=== PATIENT | male | born 1960 | race Caucasian/White ===

== ENCOUNTER → 2016-04-17 | Outpatient (CLI) | payer MEDICARE | END | disposition home or self-care (01) | LOC: LABWHC1 14:21 | PROVIDERS: ATTEND Psychiatry & Neurology Neurology | DX: G40.209 Localization-related (focal) (partial) symptomatic epilepsy and epileptic syndromes with complex partial seizures, not intractable, without status epilepticus (principal) | CPT/HCPCS: 36415; 80156 ==

== ENCOUNTER 2016-05-29 14:00 | Inpatient (IN) | payer MEDICARE ==
[2016-05-29] MEDS ORDERED: ATENOLOL 50 MG TAB PO STA (14:52)
[2016-05-29] MEDS ORDERED: BUDESONIDE 0.5 MG/2 ML NEBU INHALATION SCH (15:00)
[2016-05-29] MEDS: HYDROcodone/APAP 7.5-325MG 1 EACH TAB PO PRN ×2 (15:51→20:32)
[2016-05-29] MEDS ORDERED: IPRATROPIUM-ALBUTEROL 3 ML NEB INHALATION SCH (16:00)
[2016-05-29 16:09] LABS: INR 1.1 (<1.1); Prothrombin Time 11.3 sec (9.0-12.0)
[2016-05-29 16:13] LABS: CH 32.5; CHCM 31.6; HCT 47.8 % (39.0-53.0); HGB 14.8 gm/dL (13.0-17.5); MCHC 30.9 g/dL (31.0-37.0); MCV 103.6 fL (80.0-100.0); Macrocytosis Slight; Mean Platelet Volume 7.7; RBC 4.62 m/uL (4.30-5.90); RDW 14.5 % (11.5-15.5); WBC 7.1 k/uL (3.8-10.6); WBC (Perox) 7.09
[2016-05-29 16:18] LABS: ALT 36 U/L (21-72); AST 29 U/L (17-59); Alkaline Phosphatase 70 U/L (38-126); Anion Gap 13 mmol/L; Blood Urea Nitrogen 18 mg/dL (9-20); Calcium 9.5 mg/dL (8.4-10.2); Carbon Dioxide 30 mmol/L (22-30); Chloride 101 mmol/L (98-107); Glucose 146 mg/dL (74-99); Non-African American GFR(MDRD) >60 (>60 ml/min/1.73 sqM); Potassium 4.4 mmol/L (3.5-5.1); Sodium 144 mmol/L (137-145); Total Bilirubin 0.5 mg/dL (0.2-1.3); Total Protein 7.1 g/dL (6.3-8.2)
[2016-05-29 17:04] LABS: Nucleated Red Blood Cells 0 /100 WBC (0-0); Total Cells Counted 100
[2016-05-29 17:05] LABS: Manual Review Performed
--- NOTE | 2016-05-29 17:05 | XR ---
EXAMINATION TYPE: XR chest 2V DATE OF EXAM: 05/29/2016 5:00 PM COMPARISON: 05/10/2015 HISTORY: Fever and cough TECHNIQUE: Frontal and lateral views of the chest are obtained. FINDINGS: There is no heart failure nor confluent pneumonic infiltrate. There are no hilar masses. H eart size is normal. There are chest leads. Bony thorax is intact. IMPRESSION: No active cardiopulmonary disease. No change.
[2016-05-29] MEDS: NICOTINE 21MG/24HR PATCH TRANSDERM SCH (17:10)
[2016-05-29] MEDS: LEVALBUTEROL NEB 1.25 MG/3 ML AMP INHALATION SCH ×2 (17:30→19:33)
[2016-05-29] MEDS: BUDESONIDE 0.5 MG/2 ML NEBU INHALATION SCH ×3 (17:30→19:34)
[2016-05-29] MEDS ORDERED: RX INFO: IV CONTRAST WAS GIVEN 1 EACH MISC MISCELLANE PRN (17:36)
[2016-05-29] MEDS: methylPREDNISolone SOD SUCCI 125 MG/2 ML VIAL IV SCH (17:53)
--- NOTE | 2016-05-29 19:37 | CT ---
EXAMINATION TYPE: CT chest w con DATE OF EXAM: 05/29/2016 7:30 PM COMPARISON: NONE HISTORY: Pt states of SOB and chest pain. CT DLP: 263.3 mGycm Automated exposure control for dose reduction was used. CONTRAST: CT scan of the chest is performed with IV Contrast, patient injected with 90 mL of Omnipaque 300. FINDINGS: There are 3-D post processed images. There is diffuse pulmonary emphysema with bullous disease in the right upper lobe more than the left. There is no mediastinal adenopathy. There are a few bronchial lymph nodes that measure up to 1.5 cm. There is no evidence of aortic aneurysm or dissection. Heart size is normal. There is no pericardial effusion. There is no pleural effusion. There is no evidence of a pulmonary mass. There are possible small filling defects in the left lower lobe pulmonary artery in the posterior bas al segment. The bony thorax appears intact. IMPRESSION: Possible embolism in the left lower lobe pulmonary artery. Emphysema.
[2016-05-29] MEDS: ATENOLOL 50 MG TAB PO SCH (20:34)
[2016-05-29] MEDS ORDERED: HEPARIN SODIUM,PORCINE 10,000 UNIT/ML 1 ML VIAL IV ONE (22:56)
[2016-05-29] MEDS ORDERED: HEPARIN SODIUM,PORCINE 5,000 UNIT/ML 1 ML VIAL IV PRN (22:56)
[2016-05-29] MEDS ORDERED: HEPARIN SODIUM,PORCINE/D5W PMX 25,000 UNIT in DEXTROSE/WATER 1 500ML.BAG IV SCH (23:00)
[2016-05-29 23:35] LABS: Basophils # (A) 0.1 k/uL (0-0.2); Basophils % (A) 1 %; CH 32.7; CHCM 31.6; Eosinophils % (A) 0 %; HCT 43.5 % (39.0-53.0); HDW 2.12; HGB 13.6 gm/dL (13.0-17.5); Luc # (Auto) 0.16; Luc % (Auto) 3; Lymphocytes # (A) 0.7 k/uL (1.0-4.8); Lymphocytes % (A) 14 %; MCH 32.3 pg (25.0-35.0); MCHC 31.1 g/dL (31.0-37.0); MCV 103.9 fL (80.0-100.0); Macrocytosis Slight; Mean Platelet Volume 8.5; Monocytes # (A) 0.4 k/uL (0-1.0); Monocytes % (A) 7 %; Neutrophils # (A) 3.8 k/uL (1.3-7.7); Neutrophils % (A) 74 %; RBC 4.19 m/uL (4.30-5.90); RDW 14.6 % (11.5-15.5); WBC 5.1 k/uL (3.8-10.6); WBC (Perox) 5.45
[2016-05-29 23:49] LABS: INR 1.1 (<1.1); Partial Thromboplastin Time 30.2 sec (22.0-30.0); Prothrombin Time 10.7 sec (9.0-12.0)
[2016-05-30] MEDS: methylPREDNISolone SOD SUCCI 125 MG/2 ML VIAL IV SCH ×5 (00:01→23:32)
[2016-05-30] MEDS: carBAMazepine 200 MG TAB PO SCH ×3 (00:01→20:13)
[2016-05-30] MEDS: HYDROcodone/APAP 7.5-325MG 1 EACH TAB PO PRN ×5 (01:26→20:12)
[2016-05-30] MEDS: SODIUM CHLORIDE 0.9% 1,000 ML IV SCH ×3 (01:27→17:37)
[2016-05-30 06:18] LABS: CH 32.3; CHCM 31.3; HDW 2.13; HGB 13.4 gm/dL (13.0-17.5); MCH 32.2 pg (25.0-35.0); MCHC 31.1 g/dL (31.0-37.0); MCV 103.6 fL (80.0-100.0); Macrocytosis Slight; Mean Platelet Volume 7.6; RBC 4.15 m/uL (4.30-5.90); RDW 14.6 % (11.5-15.5); WBC 5.9 k/uL (3.8-10.6); WBC (Perox) 6.18
[2016-05-30] MEDS: NICOTINE 21MG/24HR PATCH TRANSDERM SCH (07:34)
[2016-05-30] MEDS: PANTOPRAZOLE 40 MG TABLET PO SCH (07:34)
[2016-05-30] MEDS: ATENOLOL 50 MG TAB PO SCH ×2 (07:34→20:14)
[2016-05-30 08:19] LABS: Add Differential Manual Differential; Manual Review Performed
[2016-05-30 08:24] LABS: Band Neutrophils % 2.5 %; Myelocytes % 0.5 %; Nucleated Red Blood Cells 0 /100 WBC (0-0); Total Cells Counted 200
[2016-05-30] MEDS: LEVALBUTEROL NEB 1.25 MG/3 ML AMP INHALATION SCH ×3 (08:28→20:14)
--- NOTE | 2016-05-30 11:01 | CONS ---
DATE OF CONSULTATION: CHIEF COMPLAINT: Chest discomfort. Jamil is a 55-year-old gentleman with history of COPD, long-standing smoking who presented to the hospital complaining of cough, productive sputum and pleuritic chest pain. He had an elevated D-dimer, went on to have a CAT scan that showed evidence of pulmonary embolism. Cardiology has been consulted because of mild troponin elevation. An echocardiogram, which I reviewed while it was being done, shows an enlarged right ventricle and mild LV dysfunction with mild hypokinesis involving basal inferior wall. The patient is free of exertional angina, shortness of breath, paroxysmal nocturnal dyspnea or exertional angina. There is history of shortness of breath. There is no history of leg edema, paroxysmal nocturnal dyspnea or orthopnea. Medications at home included Tegretol, Coumadin, omeprazole, Xalatan, [place] and Tenormin. Allergic to AMPICILLIN and CHANTIX. Family history is negative for premature coronary artery disease. SOCIAL HISTORY: Significant for smoking. There is no history of EtOH abuse or drug abuse. REVIEW OF SYSTEMS: HEENT: Unremarkable. CARDIAC: As described above. RESPIRATORY: Significant for cough, pleuritic pain and productive sputum. GI: Negative. GENITOURINARY: Negative. ALLERGIES/IMMUNOLOGY: Negative. MUSCULOSKELETAL: Significant for arthritis. PSYCHOSOCIAL: Negative. ENDOCRINE: Negative. HEMATOLOGIC: Negative. CONSTITUTIONAL: Negative. The rest of the system review is not relevant. On exam, patient is comfortable at rest. Heart rate is 80 beats per minute. Blood pressure 168/100, respiratory rate is 18. Chest exam reveals diffuse bilateral rhonchi. Heart exam reveals first and second heart sounds. No gallop. Has a systolic murmur at the left lower sternal border. Abdomen is soft. Exam of the extremities did not reveal any edema. Peripheral pulses are felt. Labs show a hemoglobin of 13.4. Creatinine is 0.6. Potassium is 4.4. CAT scan shows possible pulmonary embolism. Chest x-ray was unremarkable. Labs are as described above. EKG shows sinus tachycardia. ASSESSMENT: 1. Pleuritic chest pain, probably secondary to pulmonary embolism. 2. Chronic obstructive pulmonary disease exacerbation. 3. Abnormal echo. PLAN: I agree with intravenous heparin. The patient was on Coumadin. I do not know for what, but his INR was subtherapeutic. Please start him on Coumadin. Transfer him to [facility] where he can be more closely monitored. He is already on atenolol. I will add an aspirin every day. Check his lipid profile and start him on statins. Once the respiratory status resolves, I will do an outpatient stress test on him.
--- NOTE | 2016-05-30 11:12 | ECHOF ---
Referral Reason:cp MEASUREMENTS -------- HEIGHT: 175.3 cm WEIGHT: 62.6 kg BP: 168/100 RVIDd: 2.1 cm (< 3.3) IVSd: 0.9 cm (0.6 - 1.1) LVIDd: 4.1 cm (3.9 - 5.3) LVPWd: 0.9 cm (0.6 - 1.1) IVSs: 1.8 cm LVIDs: 2.8 cm LVPWs: 1.2 cm LA Diam: 2.9 cm (2.7 - 3.8) LAESV Index (A-L): 14.70 ml/m Ao Diam: 2.7 cm (2.0 - 3.7) AV Cusp: 1.7 cm (1.5 - 2.6) LA Diam: 2.3 cm (2.7 - 3.8) MV EXCURSION: 13.189 mm (> 18.000) MV EF SLOPE: 38 mm/s (70 - 150) EPSS: 0.5 cm MV E Jesus: 0.82 m/s MV DecT: 194 ms MV A Jesus: 0.59 m/s MV E/A Ratio: 1.38 RAP: 5.00 mmHg RVSP: 26.13 mmHg FINDINGS -------- Sinus rhythm. This was a technically adequate study. Left ventricular wall thickness is normal. Overall left ventricular systolic function is mildly impaired with, an EF between 45 - 50 %. Inferior basal Hypokinesis The right ventricle is normal in size. Normal LA size by volume 22+/-6 ml/m2. The right atrium is normal in size. 1.5mg of Definity was utilized for enhancement of images Aortic valve is trileaflet and is mildly thickened. The mitral valve leaflets are mildly thickened. Mild mitral annular calcification present. Trace tricuspid regurgitation present. Right ventricular systolic pressure is normal at < 35 mmHg. Pulmonic valve appears structurally normal. The aortic root size is normal. The inferior vena cava is mildly dilated. Echo free space may represent effusion or a pericardial fat pad. CONCLUSIONS -------- 1. Sinus rhythm. 2. Aortic valve is trileaflet and is mildly thickened. 3. The mitral valve leaflets are mildly thickened. 4. Mild mitral annular calcification present. 5. Trace tricuspid regurgitation present. 6. Right ventricular systolic pressure is normal at < 35 mmHg. 7. Pulmonic valve appears structurally normal. 8. The aortic root size is normal. 9. The inferior vena cava is mildly dilated. 10. Echo free space may represent effusion or a pericardial fat pad. 11. This was a technically adequate study. 12. Left ventricular wall thickness is normal. 13. Overall left ventricular systolic function is mildly impaired with, an EF between 45 - 50 %. 14. Inferior basal Hypokinesis 15. The right ventricle is normal in size. 16. Normal LA size by volume 22+/-6 ml/m2. 17. The right atrium is normal in size. 18. 1.5mg of Definity was utilized for enhancement of images PRIMARY GRADE TEACHER: Bobby Bernal RDCS
[2016-05-30] MEDS: ASPIRIN 81 MG CHEW PO SCH (12:31)
--- NOTE | 2016-05-30 13:17 | P.CNPUL ---
History of Present Illness Consult date: 05/30/16 Requesting physician: Octaviano Noble Reason for consult: COPD, pulmonary embolism Chief complaint: Shortness of breath History of present illness: This patient is a 55-year-old male who is being evaluated and examined today on the fifth floor for pulmonary services. The patient has a history of COPD and long-standing smoking and presented to the hospital with complaints of a productive cough with white sputum and pleuritic chest pain with coughing. Upon evaluation in the ER was noted that the patient had an elevated d-dimer and he went for a computed tomography scan that did show evidence of a possible pulmonary embolism. The patient also had an elevated troponin. Cardiology has been put on consult. Upon examination the patient is resting in bed on 2 L of oxygen and complains of exertional shortness of breath and exertional angina. Review of Systems Complete 14 point review of systems was completed and is negative other than what is noted in the HPI. Past Medical History Past Medical History: COPD, Deep Vein Thrombosis (DVT), Eye Disorder, GI Bleed, Hypertension, Osteoarthritis (OA), Pneumonia, Pulmonary Embolus (PE), Respiratory Disorder, Seizure Disorder Additional Past Medical History / Comment(s): Respiratory failure with O2 at 3L/ [place] ATC, tracheobronchitis, pleurisy, bollous lung disease, bilateral pulmonary embolus, last SEIZURE 2015, PERFORATED ULCER 2005 with surgical repair, R leg DVT, CHRONIC BACK PAIN, DDD/DJD, TIA, MIGRAINES, bilateral TINNITUS, WAS TOLD 20 YEARS AGO HE HAD ALCOHOLIC HEPATITIS, bilateral GLAUCOMA, HEEL SPURS, arthritis multiple joints. History of Any Multi-Drug Resistant Organisms: None Reported Past Surgical History: Hernia Repair, Orthopedic Surgery Additional Past Surgical History / Comment(s): ulcer repair, EGD/COLONOSCOPY POLYP REMOVED WAS BENIGN, JOSIAH KNEE ARTHROSCOPY, abdominal hernia repair. Past Anesthesia/Blood Transfusion Reactions: Postoperative Nausea & Vomiting ( PONV) Past Psychological History: Anxiety Additional Psychological History / Comment(s): Pt has a son who lives with him. He has home O2 at 3L/[place] ATC and a nebulizer. He does not drive, he gets places by dial-a-ride or friends. He uses a cane occasionally. He owns a walker. Smoking Status: Current every day smoker Past Alcohol Use History: Occasional Additional Past Alcohol Use History / Comment(s): Pt states he started smoking as a teen and is a 1/2 ppd smoker. He states he has hx of alcoholism but now drinks on occasion with last drink being 05/25/16 (2 beers). Past Drug Use History: None Reported - Past Family History Sister(s) Family Medical History: Cancer Additional Family Medical History / Comment(s): SKIN CANCER Mother Family Medical History: Cancer, CVA/TIA Additional Family Medical History / Comment(s): BREAST Father Additional Family Medical History / Comment(s): YELLOW JAUNDICE, MALARIA FROM WW2, EMPHYSEMA Brother(s) Family Medical History: Cancer Additional Family Medical History / Comment(s): SKIN Medications and Allergies Home Medications Medication Instructions Recorded Confirmed Type Atenolol [Tenormin] 50 mg PO BID 12/22/13 05/29/16 History carBAMazepine [TEGretol] 200 mg PO BID 12/22/13 05/29/16 History HYDROcodone/APAP 7.5-325MG [[place] 1 tab PO BID PRN 05/29/16 05/29/16 History 7.5-325] Latanoprost [Xalatan 0.005%] 1 drop BOTH EYES HS 05/29/16 05/29/16 History Omeprazole 40 mg PO DAILY 05/29/16 05/29/16 History Warfarin [Coumadin] 7.5 mg PO HS 05/29/16 05/29/16 History Allergies Allergy/AdvReac Type Severity Reaction Status Date / Time varenicline tartrate Allergy Intermediate Rash/Hives Verified 05/29/16 15:22 [From Chantix] ampicillin Allergy Rash/Hives Verified 05/29/16 15:22 Physical Exam Vitals: Vital Signs Temp Pulse Pulse Resp BP Pulse Ox 05/30/16 08:38 83 05/30/16 08:30 96 05/30/16 08:28 83 05/30/16 08:12 168/100 05/30/16 08:00 81 17 05/30/16 07:00 98.4 F 81 17 179/97 98 05/29/16 22:19 98.2 F 103 H 20 125/80 98 05/29/16 19:44 92 05/29/16 19:35 88 05/29/16 16:00 145 H 05/29/16 15:05 99 05/29/16 15:00 99.2 F 150 H 26 H 161/105 94 L Intake and Output 05/29/16 05/30/16 05/30/16 22:59 06:59 14:59 Intake Total 738.348 Balance 738.348 Intake: Intake, IV Titration 738.348 Amount Heparin Sodium,Porcine/ 138.348 D5w Pmx 25,000 unit In Dextrose/Water 1 500ml. bag @ 18 UNITS/KG/HR 22. 68 mls/hr IV .[id number] EMILY Rx#:[id number] Sodium Chloride 0.9% 1, 600 000 ml @ 75 mls/hr IV . [id number] EMILY Rx#:[id number] Other: Voiding Method Toilet Toilet # Voids 1 1 Weight 63 kg 63 kg Patient Weight 05/31/16 06:59 Weight 63 kg GENERAL EXAM: Alert, active, comfortable in no apparent distress. HEAD: Normocephalic. EYES: Normal reaction of pupils, equal size. NOSE: Clear with pink turbinates. THROAT: No erythema or exudates. NECK: No masses, no JVD. CHEST: No chest wall deformity. LUNGS: Equal air entry with wheezing and diffuse bilateral rhonchi is present CVS: S1 and S2 normal with no audible mumurs, regular rhythm. ABDOMEN: No hepatosplenomegaly, normal bowel sounds, no guarding or rigidity. EXTREMITIES: No edema noted, pedal pulses palpable. SKIN: No rashes CENTRAL NERVOUS SYSTEM: No focal deficits, tone is normal in all 4 extremities. Results - Laboratory Findings CBC and BMP: 05/30/16 05:32 05/29/16 15:30 PT/INR, D-dimer PT 10.7 sec (9.0-12.0) 05/29/16 23:16 INR 1.1 (<1.1) 05/29/16 23:16 D-Dimer 0.96 mg/L FEU (<0.60) H 05/29/16 15:30 Abnormal lab findings: Abnormal Labs 05/29/16 05/29/16 05/29/16 15:30 15:30 15:30 RBC MCV 103.6 H MCHC 30.9 L Lymphocytes # Lymphocytes # (Manual) Monocytes # (Manual) 1.1 H APTT D-Dimer 0.96 H Creatinine 0.60 L Glucose 146 H 05/29/16 05/29/16 05/30/16 23:16 23:16 05:32 RBC 4.19 L MCV 103.9 H MCHC Lymphocytes # 0.7 L Lymphocytes # (Manual) Monocytes # (Manual) APTT 30.2 H 71.8 H D-Dimer Creatinine Glucose 05/30/16 05:32 RBC 4.15 L MCV 103.6 H MCHC Lymphocytes # Lymphocytes # (Manual) 0.9 L Monocytes # (Manual) APTT D-Dimer Creatinine Glucose - Diagnostic Findings Chest x-ray: report reviewed, image reviewed CT scan - chest: report reviewed, image reviewed Assessment and Plan Plan: Assessment Chronic obstructive pulmonary disease with acute exacerbation Current Pulmonary embolism, with a history of previous bilateral pulmonary embolism Pleuritic chest pain related to pulmonary embolism Hypertension Current active nicotine user Acute on chronic hypoxic respiratory failure Plan Medications have been reviewed and will be continued. Continue the patient on a heparin drip per protocol. The patient chronically uses home O2 of 3 L via nasal cannula at all times. Continue with nebulizer treatments and IV steroids. The patient will be moved to the selective care unit. Smoking cessation education provided. We will continue to monitor labs and adjust treatment as necessary.
--- NOTE | 2016-05-30 13:57 | P.PN ---
Subjective 55-year-old being seen sitting up in bed. Patient states breathing feels slightly improved. Patients being followed by pulmonology and cardiology service. Patient had an elevated d-dimer did have a CAT scan of the chest done at did show evidence to suggest a pulmonary emboli mild elevated troponins were noted as well and cardiology is been consulted and is participating in the plan of care. Patient did have an echocardiogram done which showed left ventricular systolic function mildly impaired with an EF between 45 and 50%. Dr. Ramirez did discuss with the patient that he did stop the Coumadin start the patient on Xarelto in which the patient has agreed. Cardiology recommends for the tachycardia the patient be moved to a cardiac unit monitored closely. Recommendations were reviewed with the patient and the family at the bedside by the attending Objective - Vital Signs Vital signs: Vital Signs Temp 98.4 F 05/30/16 07:00 Pulse 83 05/30/16 08:38 Resp 17 05/30/16 08:00 BP 168/100 05/30/16 08:12 Pulse Ox 96 05/30/16 08:30 Intake & Output 05/29/16 05/30/16 05/30/16 18:59 06:59 18:59 Intake Total 738.348 Balance 738.348 Weight 152.4 kg 63 kg 63 kg Intake: Intake, IV Titration 738.348 Amount Heparin Sodium,Porcine/ 138.348 D5w Pmx 25,000 unit In Dextrose/Water 1 500ml. bag @ 18 UNITS/KG/HR 22. 68 mls/hr IV .Q22H3M EMILY Rx#:[id number] Sodium Chloride 0.9% 1, 600 000 ml @ 75 mls/hr IV . [id number] EMILY Rx#:[id number] Other: Voiding Method Toilet Toilet # Voids 1 1 - Exam GENERAL APPEARANCE: 55-year-old male sitting up in bed patient is alert, oriented, in no acute distress. VITAL SIGNS: Reviewed HEENT: Head is normocephalic and atraumatic. Pupils are equal and reactive. The nares are patent. Oropharynx is clear without lesions. NECK: Supple without lymphadenopathy. Traches midline. HEART: S1, S2.irrg LUNGS: Posterior diminished at the bases with bilateral prolonged expiratory wheezing noted slightly short of breath with conversation ABDOMEN: Soft, nontender, nondistended with good bowel sounds. No peritoneal signs. No palpable organomegaly or masses. EXTREMITIES: Normal skin color and turgor. No cyanosis, rash, ulceration, clubbing or edema. Radial pedal pulses are 2/4 bilaterally. NEUROLOGICAL: No focal deficits. Strength and sensation are grossly intact. - Labs CBC & Chem 7: 05/30/16 05:32 05/29/16 15:30 Labs: Abnormal Lab Results - Last 24 Hours (Table) 05/29/16 05/29/16 05/29/16 Range/Units 15:30 15:30 15:30 RBC (4.30-5.90) m/uL MCV 103.6 H (80.0-100.0) fL MCHC 30.9 L (31.0-37.0) g/dL Lymphocytes # (1.0-4.8) k/uL Lymphocytes # (Manual) (1.0-4.8) k/uL Monocytes # (Manual) 1.1 H (0-1.0) k/uL APTT (22.0-30.0) sec D-Dimer 0.96 H (<0.60) mg/L FEU Creatinine 0.60 L (0.66-1.25) mg/dL Glucose 146 H (74-99) mg/dL 05/29/16 05/29/16 05/30/16 Range/Units 23:16 23:16 05:32 RBC 4.19 L (4.30-5.90) m/uL MCV 103.9 H (80.0-100.0) fL MCHC (31.0-37.0) g/dL Lymphocytes # 0.7 L (1.0-4.8) k/uL Lymphocytes # (Manual) (1.0-4.8) k/uL Monocytes # (Manual) (0-1.0) k/uL APTT 30.2 H 71.8 H (22.0-30.0) sec D-Dimer (<0.60) mg/L FEU Creatinine (0.66-1.25) mg/dL Glucose (74-99) mg/dL 05/30/16 Range/Units 05:32 RBC 4.15 L (4.30-5.90) m/uL MCV 103.6 H (80.0-100.0) fL MCHC (31.0-37.0) g/dL Lymphocytes # (1.0-4.8) k/uL Lymphocytes # (Manual) 0.9 L (1.0-4.8) k/uL Monocytes # (Manual) (0-1.0) k/uL APTT (22.0-30.0) sec D-Dimer (<0.60) mg/L FEU Creatinine (0.66-1.25) mg/dL Glucose (74-99) mg/dL Assessment and Plan Plan: Impression : Present on admission shortness of breath multifactorial suspect due to left lower lobe pulmonary emboli with decompensated congestive heart failure systolic dysfunction Subtherapeutic on INR 1.1 on admission Chronic hypoxic respiratory failure supplemental home O2 Chronic nicotine dependency Present on admission pleuritic chest pain suspect due to pulmonary emboli Acute exacerbation of COPD Acute on chronic hypoxic respiratory failure essential hypertension Echocardiogram done on May 29 show left ventricular systolic function mildly impaired EF between 45 and 50% Present on admission sinus tachycardic likely reactive Chronic debility due to comorbidities CT CAT scan of the chest shows emphysema Plan Transfer to the cardiac unit per cardiology's request Continue recommendations by cardiology service Xarelto 15 mg twice a day for 3 weeks then 20 mg daily for treatment of the pulmonary emboli Stop IV heparin after the Xarelto has been initiated We'll stop the Coumadin Resume home meds as appropriate Further recommendations pending The above dictated assessment and findings were discussed with dr ramirez Impression and the plan of care have been dictated as directed. Anastasia Garcia nurse practitioner acting as a scribe for dr ramirez
[2016-05-30] MEDS: RIVAROXABAN 15 MG TAB PO SCH (14:53)
[2016-05-30] MEDS: LATANOPROST 0.005% OPHTH DROPS 2.5 ML BTL BOTH EYES SCH (20:14)
[2016-05-30] MEDS: BUDESONIDE 0.5 MG/2 ML NEBU INHALATION SCH (20:14)
[2016-05-30] MEDS ORDERED: ATENOLOL 50 MG TAB PO SCH (21:00)
[2016-05-30] MEDS: DILTIAZEM 125 MG in SODIUM CHLORIDE 0.9% 100 ML IV SCH (23:19)
[2016-05-31] MEDS: PANTOPRAZOLE 40 MG TABLET PO SCH (06:37)
[2016-05-31] MEDS: methylPREDNISolone SOD SUCCI 125 MG/2 ML VIAL IV SCH ×4 (06:37→23:50)
[2016-05-31] MEDS: RIVAROXABAN 15 MG TAB PO SCH ×2 (06:37→17:08)
[2016-05-31 07:02] LABS: Basophils # (A) 0.1 k/uL (0-0.2); Basophils % (A) 1 %; CH 32.5; CHCM 30.8; Eosinophils % (A) 0 %; HCT 45.5 % (39.0-53.0); HDW 2.25; HGB 13.9 gm/dL (13.0-17.5); Hypochromasia Slight; Luc # (Auto) 0.34; Luc % (Auto) 4; Lymphocytes # (A) 1.2 k/uL (1.0-4.8); Lymphocytes % (A) 13 %; MCH 32.5 pg (25.0-35.0); MCHC 30.6 g/dL (31.0-37.0); MCV 106.2 fL (80.0-100.0); Macrocytosis Moderate; Mean Platelet Volume 8.7; Monocytes # (A) 0.7 k/uL (0-1.0); Monocytes % (A) 8 %; Neutrophils # (A) 6.9 k/uL (1.3-7.7); Neutrophils % (A) 75 %; RBC 4.29 m/uL (4.30-5.90); RDW 14.6 % (11.5-15.5); WBC 9.3 k/uL (3.8-10.6); WBC (Perox) 9.27
[2016-05-31] MEDS: LEVALBUTEROL NEB 1.25 MG/3 ML AMP INHALATION SCH ×3 (08:16→21:01)
[2016-05-31] MEDS: BUDESONIDE 0.5 MG/2 ML NEBU INHALATION SCH ×3 (08:16→21:02)
[2016-05-31] MEDS: carBAMazepine 200 MG TAB PO SCH ×2 (08:36→19:42)
[2016-05-31] MEDS: ATENOLOL 50 MG TAB PO SCH ×2 (08:36→19:42)
[2016-05-31] MEDS: ASPIRIN 81 MG CHEW PO SCH (08:36)
[2016-05-31] MEDS: NICOTINE 21MG/24HR PATCH TRANSDERM SCH (08:37)
[2016-05-31] MEDS: DILTIAZEM 125 MG in SODIUM CHLORIDE 0.9% 100 ML IV SCH (08:37)
[2016-05-31] MEDS: HYDROcodone/APAP 7.5-325MG 1 EACH TAB PO PRN ×2 (08:38→19:33)
--- NOTE | 2016-05-31 13:45 | P.PN ---
Subjective Principal diagnosis: pulmonary embolism, acute exacerbation of COPD patient seen and examined. Patient states he is much more wheezy today. He is more short of breath. He states he does not feel ready to go home yet. Objective - Vital Signs Vital signs: Vital Signs Temp 96.4 F L 05/31/16 11:45 Pulse 70 05/31/16 13:33 Resp 18 05/31/16 11:45 BP 127/74 05/31/16 11:45 Pulse Ox 97 05/31/16 11:45 Intake & Output 05/30/16 05/31/16 05/31/16 18:59 06:59 18:59 Intake Total 86 420 813 Balance 86 420 813 Weight 63 kg 68.9 kg Intake: IV 240 Diltiazem 125 mg In 80 Sodium Chloride 0.9% 100 ml @ 10 MG/HR 10 mls/hr IV .[id number] EMILY Rx#: [id number] Sodium Chloride 0.9% 1, 160 000 ml @ 20 mls/hr IV . Q24H EMILY Rx#:[id number] Intake, IV Titration 86 120 93 Amount Diltiazem 125 mg In 40 93 Sodium Chloride 0.9% 100 ml @ 10 MG/HR 10 mls/hr IV .[id number] EMILY Rx#: [id number] Sodium Chloride 0.9% 1, 86 80 000 ml @ 20 mls/hr IV . Q24H EMILY Rx#:[id number] Oral 300 480 Other: Voiding Method Toilet Toilet Toilet # Voids 3 1 2 - Exam Gen.: Patient is alert and oriented 3, no acute distress Prevascular: Regular rate and rhythm, S1/S2 Lungs: Diffuse bilateral wheezing Abdomen: Soft nontender nondistended positive bowel sounds Extremities: No edema - Labs CBC & Chem 7: 05/31/16 06:11 05/29/16 15:30 Labs: Abnormal Lab Results - Last 24 Hours (Table) 05/31/16 Range/Units 06:11 RBC 4.29 L (4.30-5.90) m/uL MCV 106.2 H (80.0-100.0) fL MCHC 30.6 L (31.0-37.0) g/dL Assessment and Plan Plan: Chronic obstructive pulmonary disease with acute exacerbation bronchospasm Current left lower lobe Pulmonary embolism, with a history of previous bilateral pulmonary embolism Pleuritic chest pain related to pulmonary embolism Hypertension Current active nicotine user Acute on chronic hypoxic respiratory failure Plan Medications have been reviewed and will be continued. The patient chronically uses home O2 of 3 L via nasal cannula at all times. Continue with nebulizer treatments and IV steroids. Increase dose of Pulmicort for now. Will add Atrovent nebs. Continue Xopenex. Add Perforomist Continue dose of IV Solumedrol for now. Xarelto for PE. Smoking cessation education provided. We will continue to monitor labs and adjust treatment as necessary.
[2016-05-31] MEDS: IPRATROPIUM 0.5 MG/2.5 ML NEBU INHALATION SCH ×2 (13:52→21:01)
[2016-05-31] MEDS: SODIUM CHLORIDE 0.9% 1,000 ML IV SCH (17:13)
[2016-05-31] MEDS ORDERED: IPRATROPIUM 0.5 MG/2.5 ML NEBU INHALATION PRN (18:38)
[2016-05-31] MEDS: LATANOPROST 0.005% OPHTH DROPS 2.5 ML BTL BOTH EYES SCH (19:35)
--- NOTE | 2016-05-31 20:11 | P.PN ---
Subjective Principal diagnosis: This patient was admitted with chest pain and shortness of breath. This and is being treated for pulmonary embolism this and also has a moderate to severe COPD he is having mild chest discomfort at present his breathing is improved. Objective - Vital Signs Vital signs: Vital Signs Temp 97.8 F 05/31/16 15:48 Pulse 73 05/31/16 15:48 Resp 18 05/31/16 15:48 BP 105/68 05/31/16 15:48 Pulse Ox 99 05/31/16 15:48 Intake & Output 05/31/16 05/31/16 06/01/16 06:59 18:59 07:59 Intake Total 420 813 Balance 420 813 Weight 68.9 kg Intake: IV 240 Diltiazem 125 mg In 80 Sodium Chloride 0.9% 100 ml @ 10 MG/HR 10 mls/hr IV .[id number] EMILY Rx#: [id number] Sodium Chloride 0.9% 1, 160 000 ml @ 20 mls/hr IV . Q24H EMILY Rx#:[id number] Intake, IV Titration 120 93 Amount Diltiazem 125 mg In 40 93 Sodium Chloride 0.9% 100 ml @ 10 MG/HR 10 mls/hr IV .[id number] EMILY Rx#: [id number] Sodium Chloride 0.9% 1, 80 000 ml @ 20 mls/hr IV . Q24H EMILY Rx#:[id number] Oral 300 480 Other: Voiding Method Toilet Toilet Urinal # Voids 1 2 - Exam Patient is not in any acute respiratory distress. First and second heart sounds are normal. Lungs reveal bilateral rhonchi. - Labs CBC & Chem 7: 05/31/16 06:11 05/29/16 15:30 Labs: Abnormal Lab Results - Last 24 Hours (Table) 05/31/16 Range/Units 06:11 RBC 4.29 L (4.30-5.90) m/uL MCV 106.2 H (80.0-100.0) fL MCHC 30.6 L (31.0-37.0) g/dL Assessment and Plan Plan: I would recommend to continue to treat the patient with the xarelto for pulmonary embolism I would also recommend to continue the treatment for COPD.
[2016-05-31] MEDS: FORMOTEROL FUMARATE 20 MCG/2 ML NEBU INHALATION SCH (21:01)
[2016-05-31] MEDS: DILTIAZEM ORAL 30 MG TAB PO SCH (21:38)
--- NOTE | 2016-05-31 21:44 | PN ---
DATE OF SERVICE: 05/31/2016 SUBJECTIVE: A 55-year-old white male with pulmonary embolism, acute exacerbation of COPD, possible tracheobronchitis. Continues to have wheezing. He had some rigors and chills at home prior to coming in the hospital. He has subtherapeutic Coumadin level. We started him on Xarelto yesterday for his pulmonary embolism. Blood pressure 120s/70s, O2 is 97% on room air. Pulse 70s, respiratory rate 18, temp 96.4. He has had diltiazem for severe tachycardia through the IV. EXTREMITIES: No cyanosis, clubbing, edema. White count is 9.3, hemoglobin 13.9. Creatinine 0.6. ASSESSMENT: 1. Chronic obstructive pulmonary disease exacerbation. 2. Left lower lobe pulmonary embolism, previous pulmonary emboli. 3. Pleuritic chest pain secondary to pulmonary embolism. 4. Hypertension. 5. Nicotine addiction. 6. Acute on chronic respiratory failure. Continue 3L of oxygen at home. Continue with Atrovent nebulizer, Pulmicort nebulizer, Xopenex, Perforomist, IV Solu-Medrol, Xarelto, smoking cessation. Follow up in next 24 to 48 hours.
[2016-06-01] MEDS: methylPREDNISolone SOD SUCCI 125 MG/2 ML VIAL IV SCH ×2 (06:35→11:45)
[2016-06-01] MEDS: RIVAROXABAN 15 MG TAB PO SCH ×2 (06:35→16:41)
[2016-06-01] MEDS: PANTOPRAZOLE 40 MG TABLET PO SCH (06:35)
[2016-06-01] MEDS: FORMOTEROL FUMARATE 20 MCG/2 ML NEBU INHALATION SCH ×2 (06:58→19:34)
[2016-06-01] MEDS: IPRATROPIUM 0.5 MG/2.5 ML NEBU INHALATION SCH ×4 (06:59→19:34)
[2016-06-01 07:01] LABS: Basophils % (A) 0 %; CH 32.5; CHCM 31.2; Eosinophils % (A) 0 %; HCT 40.9 % (39.0-53.0); HGB 12.6 gm/dL (13.0-17.5); Luc # (Auto) 0.26; Luc % (Auto) 3; Lymphocytes % (A) 11 %; MCH 32.2 pg (25.0-35.0); MCHC 30.8 g/dL (31.0-37.0); MCV 104.7 fL (80.0-100.0); Macrocytosis Moderate; Mean Platelet Volume 7.8; Monocytes # (A) 0.6 k/uL (0-1.0); Monocytes % (A) 6 %; Neutrophils # (A) 7.7 k/uL (1.3-7.7); Neutrophils % (A) 80 %; RDW 14.6 % (11.5-15.5); WBC 9.6 k/uL (3.8-10.6); WBC (Perox) 10.04
[2016-06-01] MEDS: BUDESONIDE 0.5 MG/2 ML NEBU INHALATION SCH ×2 (07:10→19:34)
[2016-06-01 07:17] LABS: ALT 116 U/L (21-72); AST 86 U/L (17-59); Alkaline Phosphatase 88 U/L (38-126); Anion Gap 9 mmol/L; Blood Urea Nitrogen 17 mg/dL (9-20); Calcium 9.2 mg/dL (8.4-10.2); Carbon Dioxide 30 mmol/L (22-30); Chloride 103 mmol/L (98-107); Glucose 198 mg/dL (74-99); Non-African American GFR(MDRD) >60 (>60 ml/min/1.73 sqM); Potassium 4.6 mmol/L (3.5-5.1); Sodium 142 mmol/L (137-145); Total Bilirubin 0.4 mg/dL (0.2-1.3); Total Protein 5.7 g/dL (6.3-8.2)
[2016-06-01] MEDS ORDERED: LEVALBUTEROL NEB (CONC) 1.25 MG/0.5 ML AMP INHALATION SCH (08:00)
[2016-06-01] MEDS: DILTIAZEM ORAL 30 MG TAB PO SCH (08:37)
[2016-06-01] MEDS: ATENOLOL 50 MG TAB PO SCH ×2 (08:38→21:09)
[2016-06-01] MEDS: ASPIRIN 81 MG CHEW PO SCH (08:38)
[2016-06-01] MEDS: NICOTINE 21MG/24HR PATCH TRANSDERM SCH (08:38)
[2016-06-01] MEDS: HYDROcodone/APAP 7.5-325MG 1 EACH TAB PO PRN ×2 (08:40→18:48)
[2016-06-01] MEDS: LEVALBUTEROL NEB (CONC) 1.25 MG/0.5 ML AMP INHALATION SCH ×3 (10:57→19:34)
[2016-06-01] MEDS: carBAMazepine 200 MG TAB PO SCH ×2 (10:58→21:09)
--- NOTE | 2016-06-01 14:29 | P.PN ---
Subjective Principal diagnosis: pulmonary embolism patient seen and examined. Patient states his breathing is a little bit better today. He still feels very wheezy. He doesn't feel he is ready to go home. Objective - Vital Signs Vital signs: Vital Signs Temp 96.8 F L 06/01/16 12:00 Pulse 112 H 06/01/16 12:00 Resp 16 06/01/16 12:00 BP 169/104 06/01/16 12:00 Pulse Ox 97 06/01/16 12:00 Intake & Output 05/31/16 06/01/16 06/01/16 17:59 06:59 18:59 Intake Total 180 Balance 180 Weight 69.8 kg Intake: IV Diltiazem 125 mg In Sodium Chloride 0.9% 100 ml @ 10 MG/HR 10 mls/hr IV .[id number] [facility] Rx#: [id number] Sodium Chloride 0.9% 1, 000 ml @ 20 mls/hr IV . Q24H [facility] Rx#:[id number] Intake, IV Titration Amount Diltiazem 125 mg In Sodium Chloride 0.9% 100 ml @ 10 MG/HR 10 mls/hr IV .[id number] [facility] Rx#: [id number] Oral 180 Other: Voiding Method Toilet Urinal # Voids # Bowel Movements 1 - Exam Gen.: Patient is alert and oriented 3, no acute distress Prevascular: Regular rate and rhythm, S1/S2 Lungs: Diffuse bilateral wheezing Abdomen: Soft nontender nondistended positive bowel sounds Extremities: No edema - Labs CBC & Chem 7: 06/01/16 06:03 06/01/16 06:03 Labs: Abnormal Lab Results - Last 24 Hours (Table) 06/01/16 06/01/16 Range/Units 06:03 06:03 RBC 3.90 L (4.30-5.90) m/uL Hgb 12.6 L (13.0-17.5) gm/dL MCV 104.7 H (80.0-100.0) fL MCHC 30.8 L (31.0-37.0) g/dL Creatinine 0.55 L (0.66-1.25) mg/dL Glucose 198 H (74-99) mg/dL AST 86 H (17-59) U/L ALT 116 H (21-72) U/L Total Protein 5.7 L (6.3-8.2) g/dL Albumin 3.2 L (3.5-5.0) g/dL Assessment and Plan Plan: Chronic obstructive pulmonary disease with acute exacerbation bronchospasm Current left lower lobe Pulmonary embolism, with a history of previous bilateral pulmonary embolism Pleuritic chest pain related to pulmonary embolism Hypertension Current active nicotine user Acute on chronic hypoxic respiratory failure Plan Medications have been reviewed and will be continued. The patient chronically uses home O2 of 3 L via nasal cannula at all times. Continue with nebulizer treatments and IV steroids. Increase dose of Pulmicort for now. Will add Atrovent nebs. Continue Xopenex. continuePerforomist Continue dose of IV Solumedrol for now. Xarelto for PE. Smoking cessation education provided. We will continue to monitor labs and adjust treatment as necessary.
[2016-06-01] MEDS: ENALAPRILAT 1.25 MG/ML 1 ML VIAL IVP PRN ×2 (16:41→21:16)
[2016-06-01] MEDS: DILTIAZEM ORAL 60 MG TAB PO SCH ×2 (16:42→21:10)
[2016-06-01] MEDS: SODIUM CHLORIDE 0.9% 1,000 ML IV SCH (16:45)
[2016-06-01] MEDS ORDERED: methylPREDNISolone SOD SUCCI 125 MG/2 ML VIAL IV SCH (21:00)
[2016-06-01] MEDS: LATANOPROST 0.005% OPHTH DROPS 2.5 ML BTL BOTH EYES SCH (21:09)
[2016-06-01] MEDS: methylPREDNISolone SOD SUCCI 40 MG/ML 1 ML VIAL IV SCH (21:17)
[2016-06-01] MEDS: VERAPAMIL 40 MG TAB PO SCH (23:20)
[2016-06-02 06:28] LABS: Basophils % (A) 0 %; CH 32.6; CHCM 31.7; Eosinophils % (A) 0 %; HCT 39.4 % (39.0-53.0); HDW 2.11; HGB 12.5 gm/dL (13.0-17.5); Luc # (Auto) 0.37; Luc % (Auto) 3; Lymphocytes % (A) 8 %; MCH 32.8 pg (25.0-35.0); MCHC 31.8 g/dL (31.0-37.0); MCV 103.2 fL (80.0-100.0); Macrocytosis Slight; Mean Platelet Volume 7.4; Monocytes % (A) 8 %; Neutrophils % (A) 81 %; RBC 3.82 m/uL (4.30-5.90); RDW 14.5 % (11.5-15.5); WBC 12.4 k/uL (3.8-10.6); WBC (Perox) 13.24
[2016-06-02] MEDS: PANTOPRAZOLE 40 MG TABLET PO SCH (06:32)
[2016-06-02] MEDS: HYDROcodone/APAP 7.5-325MG 1 EACH TAB PO PRN ×3 (06:32→21:27)
[2016-06-02] MEDS: ENALAPRILAT 1.25 MG/ML 1 ML VIAL IVP PRN (06:33)
[2016-06-02] MEDS: LEVALBUTEROL NEB (CONC) 1.25 MG/0.5 ML AMP INHALATION SCH ×4 (08:10→20:22)
[2016-06-02] MEDS: BUDESONIDE 0.5 MG/2 ML NEBU INHALATION SCH ×2 (08:10→20:21)
[2016-06-02] MEDS: FORMOTEROL FUMARATE 20 MCG/2 ML NEBU INHALATION SCH ×2 (08:10→20:21)
[2016-06-02] MEDS: IPRATROPIUM 0.5 MG/2.5 ML NEBU INHALATION SCH ×4 (08:10→20:22)
--- NOTE | 2016-06-02 08:43 | PN ---
DATE OF SERVICE: 06/01/2016. SUBJECTIVE: 55-year-old white male with COPD exacerbation and pulmonary embolism, in the right lower lobe. Nicotine patch is being given, Xarelto has been given. He is being weaned off the IV steroids. He is on 60 q.12 at this time. We are going to decrease it. Increase his ambulation. Possibly discharge home in next day or 2. PHYSICAL EXAM: VITAL SIGNS: Respiratory rate 18, pulse rate 111, he has been taken off the Cardizem drip and oral Cardizem, pulse rate is in the low 100s. CARDIOVASCULAR: S1, S2. Tachy. LUNGS: Show scattered wheezes x4. HEMATOLOGIC: Negative Homans. PSYCHIATRIC: Fair mood and affect. VASCULAR: Normal dorsalis pedis, posterior tibial, and radial pulse. ASSESSMENT: 1. Acute pulmonary embolism. 2. Acute chronic obstructive pulmonary disease exacerbation. 3. Acute severe tachyarrhythmia. On Cardizem and Tenormin to control rate but wean off Solu-Medrol a little bit. Possibly discharge home in the next day or 2.
[2016-06-02] MEDS ORDERED: VERAPAMIL 40 MG TAB PO SCH ×2 (09:00→22:30)
[2016-06-02] MEDS: RIVAROXABAN 15 MG TAB PO SCH ×2 (09:02→17:26)
[2016-06-02] MEDS: carBAMazepine 200 MG TAB PO SCH ×2 (09:03→21:12)
[2016-06-02] MEDS: ASPIRIN 81 MG CHEW PO SCH (09:03)
[2016-06-02] MEDS: NADOLOL 20 MG TAB PO SCH ×2 (09:04→21:12)
[2016-06-02] MEDS: VERAPAMIL 40 MG TAB PO SCH ×3 (09:04→21:13)
[2016-06-02] MEDS: NICOTINE 21MG/24HR PATCH TRANSDERM SCH (09:07)
[2016-06-02] MEDS: methylPREDNISolone SOD SUCCI 40 MG/ML 1 ML VIAL IV SCH ×2 (09:07→21:12)
--- NOTE | 2016-06-02 09:29 | PN ---
This patient is being treated for acute exacerbation of COPD and pulmonary embolism. Patient is feeling well. He has been having some chest pain with coughing. He continues to have some respiratory distress. Patient is afebrile. Respirations are not labored. Blood pressure is 150/90 mmHg. First and second heart sounds are normal. Lung examination revealed bilateral rhonchi. Patient's heart rate remains in the range of 100 to 110. I will increase the dose of Cardizem to 60 mg q.8 hourly, continue Tenormin.
--- NOTE | 2016-06-02 15:58 | P.PN ---
Subjective 55-year-old states breathing feels slightly improved but continues to feel short of breath with exertion since being followed by pulmonology service Objective - Vital Signs Vital signs: Vital Signs Temp 97.1 F L 06/02/16 11:20 Pulse 96 06/02/16 11:48 Resp 20 06/02/16 11:20 BP 150/95 06/02/16 11:20 Pulse Ox 96 06/02/16 11:20 Intake & Output 06/01/16 06/02/16 06/02/16 18:59 06:59 18:59 Intake Total 300 660 300 Output Total 350 Balance 300 660 -50 Weight 69.8 kg 70.3 kg Intake: IV 60 Sodium Chloride 0.9% 1, 60 000 ml @ 20 mls/hr IV . Q24H [facility] Rx#:[id number] Oral 300 600 300 Output: Urine 350 Other: Voiding Method Toilet Toilet Toilet Urinal Urinal Urinal # Voids 2 1 # Bowel Movements 1 - Exam Physical exam 55-year-old male sitting up states he feels short of breath Lungs diminished at the bases otherwise adequate air movement Heart S1-S2 audible regular Abdomen soft nontender Extremities no edema - Labs CBC & Chem 7: 06/02/16 05:57 06/01/16 06:03 Labs: Abnormal Lab Results - Last 24 Hours (Table) 06/02/16 Range/Units 05:57 WBC 12.4 H (3.8-10.6) k/uL RBC 3.82 L (4.30-5.90) m/uL Hgb 12.5 L (13.0-17.5) gm/dL MCV 103.2 H (80.0-100.0) fL Neutrophils # 10.0 H (1.3-7.7) k/uL Assessment and Plan Plan: Impression : Present on admission shortness of breath multifactorial suspect due to left lower lobe pulmonary emboli with decompensated congestive heart failure systolic dysfunction Subtherapeutic on INR 1.1 on admission Chronic hypoxic respiratory failure supplemental home O2 Chronic nicotine dependency Present on admission pleuritic chest pain suspect due to pulmonary emboli Acute exacerbation of COPD Acute on chronic hypoxic respiratory failure essential hypertension Echocardiogram done on May 29 show left ventricular systolic function mildly impaired EF between 45 and 50% Present on admission sinus tachycardic likely reactive Chronic debility due to comorbidities CT CAT scan of the chest shows emphysema Plan Transfer to the cardiac unit per cardiology's request Continue recommendations by cardiology service Xarelto 15 mg twice a day for 3 weeks then 20 mg daily for treatment of the pulmonary emboli Stop IV heparin after the Xarelto has been initiated We'll stop the Coumadin Resume home meds as appropriate Further recommendations pending The above dictated assessment and findings were discussed with dr james Gill and the plan of care have been dictated as directed. Anastasia Garcia nurse practitioner acting as a scribe for dr ramirez
[2016-06-02] MEDS: SODIUM CHLORIDE 0.9% 1,000 ML IV SCH (17:23)
--- NOTE | 2016-06-02 19:54 | XR ---
"EXAMINATION TYPE: XR abdomen 2V DATE OF EXAM: 06/02/2016 7:46 PM CLINICAL HISTORY: Lower abdominal pain. TECHNIQUE: Supine and upright views of the abdomen are obtained. COMPARISON: CT abdomen pelvis May 05, 2015. FINDINGS: Scattered gas is seen in non-distended small bowel loops. Gas and fecal material is seen in non-distended colon. Numerous coils ventral wall hernia repair surgery are seen overlying the abdo men. There is moderate amount of pneumoperitoneum present. Lung bases are clear. Osseous structures a re demineralized. IMPRESSION: Pneumoperitoneum present. No recent intra-abdominal surgery per nurse. Emergent surgical consultation advised. Critical results were communicated to patient's nurse via telephone at time of dictation. A Document Only message has been documented for Sumanth Fajardo in the [employer] | Critical Result sys tem on 06/02/2016 7:51 PM, Message ID [id number]."
[2016-06-02] MEDS ORDERED: RX INFO: IV CONTRAST WAS GIVEN 1 EACH MISC MISCELLANE PRN (20:22)
[2016-06-02] MEDS: IOHEXOL 350 MG/ML 25 ML BOTTLE (ORAL USE) PO PRN ×2 (21:00→23:45)
[2016-06-02] MEDS: LATANOPROST 0.005% OPHTH DROPS 2.5 ML BTL BOTH EYES SCH (21:12)
[2016-06-02] MEDS: LACTATED RINGERS 1,000 ML IV SCH (21:14)
[2016-06-02] MEDS: LEVOFLOXACIN 500MG-D5W PMX 500 MG in DEXTROSE/WATER 1 100ML.BAG IVPB SCH (21:14)
--- NOTE | 2016-06-02 22:17 | PN ---
This patient is a 55-year-old male, seen, evaluated, examined as a followup on sixth floor. Patient has been admitted to the hospital with acute COPD exacerbation, tracheobronchitis and severe wheezing. Clinically he is slightly better and improved, breathing more comfortably. His hemodynamic status is stable. He has a new complaint which just started a few hours ago which is associated with left lower quadrant abdominal pain. He had a regular bowel movement today. He denies any nausea or vomiting. His last set of vitals includes blood pressure 150/95, respiratory rate 18, pulse 85, temperature 97. Saturating 96% on 3 L oxygen. HEENT: Unremarkable. Atraumatic, normocephalic. Pharynx is clear without exudate. NECK: Supple without lymphadenopathy, jugular venous distention or carotid bruit. LUNGS: Bilateral good air entry is present without any significant rales, rhonchi or rub; however, fine expiratory and inspiratory wheezing is present. HEART: Regular rate, rhythm. S1, S2 audible. ABDOMEN: Soft. Hypoactive bowel sounds. Tenderness predominantly present in left lower quadrant. No rebound or rigidity. EXTREMITIES: Plus one peripheral pulses. NEUROLOGICAL EXAMINATION: Awake and alert. No focal neurological deficit. Patient did receive [place] this morning. Labs are reviewed. White cell count 12,400, hemoglobin 12, hematocrit 39, platelet count 247,000. Chemistry otherwise is within normal limits. Glucose 198. AST and ALT are 86 and 116, which were up compared to prior exam. Influenza A and B were both negative. Patient is off of heparin now. The hemoglobin, however, remains relatively stable. The radiographic studies are reviewed. The chest x-ray performed on 05/29/16 revealed no active disease. CT scan of the chest performed on 05/29/16 revealed bullous lung disease, borderline lymph node enlargement. Cardiology has been following this patient as well. Current medications are reviewed and include: 1. Tylenol with codeine 4 times a day. 2. Aspirin 81 mg daily. 3. Pulmicort 2 times a day. 4. Vasotec as needed. 5. Perforomist. 6. Ipratropium unit dose updraft 4 times a day. 7. Levalbuterol 4 times a day. 8. Solu-Medrol 40 q.12. 9. Xarelto 15 mg p.o. 2 times a day. IMPRESSION: 1. Acute chronic obstructive pulmonary disease exacerbation and tracheobronchitis. Continue breathing treatments and steroids. 2. Pulmonary embolism, on Xarelto. 3. Leukocytosis with elevated liver enzymes with new-onset left lower quadrant pain. Would recommend an ultrasound of the abdomen, a plain film x-ray. Patient is being given [place]. If the pain is persistent, would recommend a CT scan of the abdomen and pelvis. Will monitor and observe closely. Further recommendations pending.
--- NOTE | 2016-06-02 22:23 | PN ---
This patient has acute tracheobronchitis and pulmonary embolism. Patient is doing better. His breathing is improved. Patient has now converted to normal sinus rhythm. Blood pressure is 150/95 mmHg. Heart rate is 90 per minute. First and second heart sounds are normal. Lungs are clear to auscultation and percussion. We will continue the patient on Verapamil, ( ) and Xarelto.
--- NOTE | 2016-06-03 02:12 | CT ---
EXAM: CT Abdomen and Pelvis With Intravenous Contrast. CLINICAL HISTORY: Abdominal fluid. TECHNIQUE: Axial computed tomography images of the abdomen and pelvis with intravenous contrast. Oral contrast was administered. Delayed images were obtained. Coronal and sagittal reformatted images were created and reviewed. DOSE INFORMATION: CTDI: 7.80 mGy DLP: 609.50 mGy-cm CONTRAST: 100 mL of Omnipaque 300 administered intravenously. COMPARISON: CT dated 05/10/2015. FINDINGS: Lower thorax: No acute findings. ABDOMEN: Liver: Hypoattenuation of liver relative to the spleen suggestive of fatty infiltration. No mass. Gallbladder and bile ducts: Gallbladder partially contracted. No radiopaque calculi. No biliary ductal dilation. Pancreas: Unremarkable. No ductal dilation. No mass. No adjacent inflammatory changes. Spleen: Unremarkable. No splenomegaly. Adrenals: Unremarkable. No mass. Kidneys and ureters: Unremarkable. No hydronephrosis or ureteral calculus. No solid mass. Stomach and bowel: Moderate free air in the upper abdomen compatible with bowel perforation. No evidence of extraluminal contrast (oral contrast extends to the proximal transverse colon) or focal bowel wall thickening. However, there is colonic diverticular disease with mild stranding and focal air along the anterior aspect of the mid descending colon which may be site of bowel perforation (Series 3, Images 46 through 50). No evidence of bowel obstruction or pneumatosis. Appendix: No findings to suggest acute appendicitis. PELVIS: Bladder: Unremarkable. No mass or wall thickening. Reproductive: Mild prostatomegaly. ABDOMEN and PELVIS: Intraperitoneal space: Moderate amount of free intraperitoneal air, predominantly located in the upper abdomen. No free fluid. No evidence of abscess. Bones/joints: Degenerative changes at L5-S1. No acute fracture or dislocation. Soft tissues: Free air in the anterior abdominal wall. Postsurgical changes of ventral hernia repair. Small fat-containing inguinal hernias and suspected small fat-containing left femoral hernia. Vasculature: Atherosclerotic vascular disease. No abdominal aortic aneurysm. Lymph nodes: No enlarged lymph nodes. IMPRESSION: 1. Moderate amount of free intraperitoneal air consistent with bowel perforation. No evidence of extraluminal contrast (oral contrast reaches proximal transverse colon), focal bowel wall thickening, bowel obstruction or pneumatosis. However, there is diverticular disease of the colon with mild inflammatory change and focal air along the anterior aspect of the mid descending colon suspicious for site of bowel perforation, likely due to perforated diverticulitis. Other sources/sites of perforation are less likely although not entirely excluded. 2. No abdominal fluid/ascites, as clinically queried. 3. Fatty liver. 4. Fat-containing inguinal hernias. Critical Value Communications 06/03/16 01:59 Call Doctor Regarding Bowel Perforation with Free Air, called Dr De Leon on 06/03 01:59 (-04:00)
[2016-06-03] MEDS: HYDROcodone/APAP 7.5-325MG 1 EACH TAB PO PRN ×3 (03:52→20:59)
[2016-06-03] MEDS: LACTATED RINGERS 1,000 ML IV SCH ×2 (04:04→15:25)
[2016-06-03] MEDS: ENALAPRILAT 1.25 MG/ML 1 ML VIAL IVP PRN (04:48)
[2016-06-03 06:23] LABS: Basophils # (A) 0.1 k/uL (0-0.2); Basophils % (A) 0 %; CH 32.9; CHCM 32.2; Eosinophils % (A) 0 %; HCT 40.1 % (39.0-53.0); HDW 2.04; HGB 12.5 gm/dL (13.0-17.5); Luc # (Auto) 0.19; Luc % (Auto) 1; Lymphocytes % (A) 6 %; MCH 31.8 pg (25.0-35.0); MCHC 31.1 g/dL (31.0-37.0); MCV 102.3 fL (80.0-100.0); Macrocytosis Slight; Mean Platelet Volume 8.1; Monocytes # (A) 0.5 k/uL (0-1.0); Monocytes % (A) 3 %; Neutrophils # (A) 14.5 k/uL (1.3-7.7); Neutrophils % (A) 89 %; RBC 3.92 m/uL (4.30-5.90); RDW 14.4 % (11.5-15.5); WBC 16.2 k/uL (3.8-10.6); WBC (Perox) 17.53
[2016-06-03] MEDS: NADOLOL 20 MG TAB PO SCH ×2 (06:28→21:24)
[2016-06-03] MEDS: PANTOPRAZOLE 40 MG TABLET PO SCH (06:28)
[2016-06-03] MEDS: VERAPAMIL 40 MG TAB PO SCH ×2 (06:28→16:00)
[2016-06-03 06:41] LABS: ALT 183 U/L (21-72); AST 111 U/L (17-59); Alkaline Phosphatase 69 U/L (38-126); Amylase 64 U/L (30-110); Anion Gap 8 mmol/L; Blood Urea Nitrogen 19 mg/dL (9-20); Calcium 8.3 mg/dL (8.4-10.2); Carbon Dioxide 32 mmol/L (22-30); Chloride 94 mmol/L (98-107); Glucose 127 mg/dL (74-99); Non-African American GFR(MDRD) >60 (>60 ml/min/1.73 sqM); Potassium 4.6 mmol/L (3.5-5.1); Sodium 134 mmol/L (137-145); Total Bilirubin 0.6 mg/dL (0.2-1.3); Total Protein 5.3 g/dL (6.3-8.2)
[2016-06-03] MEDS ORDERED: ENALAPRILAT 1.25 MG/ML 1 ML VIAL IVP STA (08:07)
--- NOTE | 2016-06-03 08:11 | US ---
EXAMINATION TYPE: US abdomen complete DATE OF EXAM: 06/03/2016 7:46 AM COMPARISON: CT on PACS from earlier today CLINICAL HISTORY: llq pain. EXAM MEASUREMENTS: Liver Length: 17.0 cm Gallbladder Wall: 0.3 cm CBD: 0.4 cm Spleen: 10.1 cm Right Kidney: 12.8 x 5.8 x 5.1 cm cm Left Kidney: 11.4 x 6.0 x 6.4 cm cm TECHNOLOGIST IMPRESSION: Pancreas: Obscured by bowel gas. Liver: Partially obscured by bowel gas. Echogenic texture. ? fatty liver Gallbladder: ? thick walled Evidence for sonographic Bethea's sign: No CBD: wnl Spleen: heterogeneous texture Right Kidney: wnl Left Kidney: tiny cyst mid pole = 0.7 x 0.6 x 0.7 cm Upper IVC: wnl Abd Aorta: wnl, distal portion obscured by bowel gas The liver is heterogeneously hyperechoic. Evaluation for masses is limited due to the heterogeneity. No obvious mass is identified on ultrasound a recent CT The intrahepatic portion of the IVC and visu alized abdominal aorta are within normal limits. There is no evidence of shadowing mobile cholelithi asis. Gallbladder wall thickness is 3 mm upper limits of normal. No pericholecystic fluid is seen. C ommon bile duct is unremarkable. Pancreas is obscured by overlying bowel gas but appeared within norm al limits on recent CT. The spleen is unremarkable. Kidneys are symmetric and free of hydronephrosi s. No suspicious renal lesions are seen. There is 7 mm lesion mid pole level laterally left kidney t oo small to further characterize presumed benign. IMPRESSION: Suboptimal study with diffuse fatty infiltration of liver suspected. No gallstones are al so on evidence for acute cholecystitis. Note is made of pneumoperitoneum which may warrant urgent stephani gical exploration seen and communicated on recent CT earlier today.
--- NOTE | 2016-06-03 08:28 | P.GSCN ---
History of Present Illness Consult date: 06/03/16 Reason for Consult: Free air, bowel perforation History of present illness: This a 55-year-old male who is admitted to Dr. Octaviano Conway service. He was admitted for treatment of pneumonia and possible left lower lobe pulmonary embolus. The patient was to be discharged yesterday however he had complaints of pain. He had a x-ray performed last night which showed evidence of free air and then he had a CAT scan performed which showed free air with possible sigmoid colon diverticular perforation. The patient states that he has had pain and left lower quadrant for approximately one week. Review of Systems - Constitutional Reports as per HPI Past Medical History Past Medical History: COPD, Deep Vein Thrombosis (DVT), Eye Disorder, GI Bleed, Hypertension, Osteoarthritis (OA), Pneumonia, Pulmonary Embolus (PE), Respiratory Disorder, Seizure Disorder Additional Past Medical History / Comment(s): Respiratory failure with O2 at 3L/ [place] ATC, tracheobronchitis, pleurisy, bollous lung disease, bilateral pulmonary embolus, last SEIZURE 2015, PERFORATED ULCER 2005 with surgical repair, R leg DVT, CHRONIC BACK PAIN, DDD/DJD, TIA, MIGRAINES, bilateral TINNITUS, WAS TOLD 20 YEARS AGO HE HAD ALCOHOLIC HEPATITIS, bilateral GLAUCOMA, HEEL SPURS, arthritis multiple joints. History of Any Multi-Drug Resistant Organisms: None Reported Past Surgical History: Hernia Repair, Orthopedic Surgery Additional Past Surgical History / Comment(s): ulcer repair, EGD/COLONOSCOPY POLYP REMOVED WAS BENIGN, JOSIAH KNEE ARTHROSCOPY, abdominal hernia repair. Past Anesthesia/Blood Transfusion Reactions: Postoperative Nausea & Vomiting ( PONV) Past Psychological History: Anxiety Additional Psychological History / Comment(s): Pt has a son who lives with him. He has home O2 at 3L/[place] ATC and a nebulizer. He does not drive, he gets places by dial-a-ride or friends. He uses a cane occasionally. He owns a walker. Smoking Status: Current every day smoker Past Alcohol Use History: Occasional Additional Past Alcohol Use History / Comment(s): Pt states he started smoking as a teen and is a 1/2 ppd smoker. He states he has hx of alcoholism but now drinks on occasion with last drink being 05/25/16 (2 beers). Past Drug Use History: None Reported - Past Family History Sister(s) Family Medical History: Cancer Additional Family Medical History / Comment(s): SKIN CANCER Mother Family Medical History: Cancer, CVA/TIA Additional Family Medical History / Comment(s): BREAST Father Additional Family Medical History / Comment(s): YELLOW JAUNDICE, MALARIA FROM WW[employer], EMPHYSEMA Brother(s) Family Medical History: Cancer Additional Family Medical History / Comment(s): SKIN Medications and Allergies Home Medications Medication Instructions Recorded Confirmed Type Atenolol [Tenormin] 50 mg PO BID 12/22/13 05/29/16 History carBAMazepine [TEGretol] 200 mg PO BID 12/22/13 05/29/16 History HYDROcodone/APAP 7.5-325MG [Atlas 1 tab PO BID PRN 05/29/16 05/29/16 History 7.5-325] Latanoprost [Xalatan 0.005%] 1 drop BOTH EYES HS 05/29/16 05/29/16 History Omeprazole 40 mg PO DAILY 05/29/16 05/29/16 History Warfarin [Coumadin] 7.5 mg PO HS 05/29/16 05/29/16 History Allergies Allergy/AdvReac Type Severity Reaction Status Date / Time varenicline tartrate Allergy Intermediate Rash/Hives Verified 05/29/16 15:22 [From Chantix] ampicillin Allergy Rash/Hives Verified 05/29/16 15:22 Surgical - Exam Vital Signs Temp Pulse Resp BP Pulse Ox 99.2 F 150 H 26 H 161/105 94 L 05/29/16 15:00 05/29/16 15:00 05/29/16 15:00 05/29/16 15:00 05/29/16 15:00 - General well developed, moderate distress - Eyes PERRL - ENT normal pinna - Neck no masses - Respiratory normal expansion - Cardiovascular Rhythm: regular - Abdomen Marked tenderness left lower quadrant with some rebound tenderness Abdomen: soft Results - Labs 06/03/16 05:35 06/03/16 05:35 Abnormal Lab Results - Last 24 Hours (Table) 06/03/16 06/03/16 Range/Units 05:35 05:35 WBC 16.2 H (3.8-10.6) k/uL RBC 3.92 L (4.30-5.90) m/uL Hgb 12.5 L (13.0-17.5) gm/dL MCV 102.3 H (80.0-100.0) fL Neutrophils # 14.5 H (1.3-7.7) k/uL Sodium 134 L (137-145) mmol/L Chloride 94 L (98-107) mmol/L Carbon Dioxide 32 H (22-30) mmol/L Creatinine 0.50 L (0.66-1.25) mg/dL Glucose 127 H (74-99) mg/dL Calcium 8.3 L (8.4-10.2) mg/dL AST 111 H (17-59) U/L ALT 183 H (21-72) U/L Total Protein 5.3 L (6.3-8.2) g/dL Albumin 3.0 L (3.5-5.0) g/dL Diabetes panel 06/03/16 Range/Units 05:35 Sodium 134 L (137-145) mmol/L Potassium 4.6 (3.5-5.1) mmol/L Chloride 94 L (98-107) mmol/L Carbon Dioxide 32 H (22-30) mmol/L BUN 19 (9-20) mg/dL Creatinine 0.50 L (0.66-1.25) mg/dL Glucose 127 H (74-99) mg/dL Calcium 8.3 L (8.4-10.2) mg/dL AST 111 H (17-59) U/L ALT 183 H (21-72) U/L Alkaline Phosphatase 69 (38-126) U/L Total Protein 5.3 L (6.3-8.2) g/dL Albumin 3.0 L (3.5-5.0) g/dL Calcium panel 06/03/16 Range/Units 05:35 Calcium 8.3 L (8.4-10.2) mg/dL Albumin 3.0 L (3.5-5.0) g/dL Pituitary panel 06/03/16 Range/Units 05:35 Sodium 134 L (137-145) mmol/L Potassium 4.6 (3.5-5.1) mmol/L Chloride 94 L (98-107) mmol/L Carbon Dioxide 32 H (22-30) mmol/L BUN 19 (9-20) mg/dL Creatinine 0.50 L (0.66-1.25) mg/dL Glucose 127 H (74-99) mg/dL Calcium 8.3 L (8.4-10.2) mg/dL Adrenal panel 06/03/16 Range/Units 05:35 Sodium 134 L (137-145) mmol/L Potassium 4.6 (3.5-5.1) mmol/L Chloride 94 L (98-107) mmol/L Carbon Dioxide 32 H (22-30) mmol/L BUN 19 (9-20) mg/dL Creatinine 0.50 L (0.66-1.25) mg/dL Glucose 127 H (74-99) mg/dL Calcium 8.3 L (8.4-10.2) mg/dL Total Bilirubin 0.6 (0.2-1.3) mg/dL AST 111 H (17-59) U/L ALT 183 H (21-72) U/L Alkaline Phosphatase 69 (38-126) U/L Total Protein 5.3 L (6.3-8.2) g/dL Albumin 3.0 L (3.5-5.0) g/dL - Imaging CT scan - chest: report reviewed (Possible left lower lobe pulmonary embolus) Assessment and Plan Plan: Perforated diverticulum. The patient is extremely high risk for surgery given the fact that he is undergoing treatment for left lower lobe pulmonary embolus. The patient is currently on Xarolto His last dose was yesterday at 5 PM. He'll be reevaluated today. If he needs exposure laparotomy he will undergo sigmoid colectomy with colostomy. He will also need K Centra prior to surgery to reverse his Xarlato
[2016-06-03] MEDS: LEVALBUTEROL NEB (CONC) 1.25 MG/0.5 ML AMP INHALATION SCH ×4 (08:39→19:07)
[2016-06-03] MEDS: FORMOTEROL FUMARATE 20 MCG/2 ML NEBU INHALATION SCH ×2 (08:39→19:07)
[2016-06-03] MEDS: IPRATROPIUM 0.5 MG/2.5 ML NEBU INHALATION SCH ×4 (08:39→19:07)
[2016-06-03] MEDS: BUDESONIDE 0.5 MG/2 ML NEBU INHALATION SCH ×2 (08:40→19:07)
[2016-06-03] MEDS: NICOTINE 21MG/24HR PATCH TRANSDERM SCH (09:12)
[2016-06-03] MEDS: metroNIDAZOLE-NS PMX 500 MG in SALINE 1 100ML.BAG IVPB SCH ×2 (09:12→17:47)
[2016-06-03] MEDS: carBAMazepine 200 MG TAB PO SCH ×2 (09:13→21:24)
[2016-06-03] MEDS: methylPREDNISolone SOD SUCCI 40 MG/ML 1 ML VIAL IV SCH ×2 (09:13→21:24)
[2016-06-03] MEDS ORDERED: HUMAN PROTHROMBIN COMPLX 500 UNIT/16 ML VIAL IV ONE (09:24)
[2016-06-03] MEDS ORDERED: HUMAN PROTHROMBIN COMPLX IV ONE ×2 (09:30)
[2016-06-03] MEDS: ASPIRIN 81 MG CHEW PO SCH (09:55)
--- NOTE | 2016-06-03 10:42 | P.PN ---
Subjective This is a 55-year-old male who was admitted to the hospital with an acute COPD exacerbation, tracheobronchitis and severe wheezing. Currently the patient is hemodynamically stable. The patient was initially on heparin and had been switched to Xeralto. Apparently yesterday the patient had a new complaint that just started hours polyp prior with a left lower quadrant abdominal pain. The patient underwent a CAT scan which showed free air with possible sigmoid colon diverticular perforation. Dr. Fajardo has spoken with Dr. Estrella, and both agree the patient should be going to surgery for repair. The patient will need a dose of K Centra prior to going to surgery to reverse his Xeralto. Upon examination the patient is resting up in bed on 2-3 L of oxygen. He states that his breathing is probably the best it's been since he's been admitted. And the abdominal pain has become more of the issue. Objective - Vital Signs Vital signs: Vital Signs Temp 97.0 F L 06/03/16 08:06 Pulse 84 06/03/16 09:05 Resp 16 06/03/16 08:06 BP 182/112 06/03/16 10:15 Pulse Ox 100 06/03/16 08:43 Intake & Output 06/02/16 06/03/16 06/03/16 18:59 06:59 18:59 Intake Total 540 450 0 Output Total 350 Balance 190 450 0 Weight 70.4 kg Intake: IV 450 Lactated Ringers 1,000 ml 250 @ 125 mls/hr IV .Q8H EMILY Rx#:[id number] Levofloxacin 500Mg-D5w 200 Pmx 500 mg In Dextrose/ Water 1 100ml.bag @ 100 mls/hr IVPB Q24H EMILY Rx#: [id number] Oral 540 0 Output: Urine 350 Other: Voiding Method Toilet Urinal Toilet Urinal # Voids 1 - Exam GENERAL EXAM: Alert, active, comfortable in no apparent distress. HEAD: Normocephalic. EYES: Normal reaction of pupils, equal size. NOSE: Clear with pink turbinates. THROAT: No erythema or exudates. NECK: No masses, no JVD. CHEST: No chest wall deformity. LUNGS: Lung sounds noted to be tight and diminished. There is some fine wheezing on expiratory. CVS: S1 and S2 normal with no audible mumurs, regular rhythm. ABDOMEN: Hypoactive bowel sounds. There is tenderness predominantly presenting in the left lower quadrant EXTREMITIES: No edema noted, pedal pulses palpable. SKIN: No rashes CENTRAL NERVOUS SYSTEM: No focal deficits, tone is normal in all 4 extremities. - Labs CBC & Chem 7: 06/03/16 05:35 06/03/16 05:35 Labs: Abnormal Lab Results - Last 24 Hours (Table) 06/03/16 06/03/16 Range/Units 05:35 05:35 WBC 16.2 H (3.8-10.6) k/uL RBC 3.92 L (4.30-5.90) m/uL Hgb 12.5 L (13.0-17.5) gm/dL MCV 102.3 H (80.0-100.0) fL Neutrophils # 14.5 H (1.3-7.7) k/uL Sodium 134 L (137-145) mmol/L Chloride 94 L (98-107) mmol/L Carbon Dioxide 32 H (22-30) mmol/L Creatinine 0.50 L (0.66-1.25) mg/dL Glucose 127 H (74-99) mg/dL Calcium 8.3 L (8.4-10.2) mg/dL AST 111 H (17-59) U/L ALT 183 H (21-72) U/L Total Protein 5.3 L (6.3-8.2) g/dL Albumin 3.0 L (3.5-5.0) g/dL - Imaging and Cardiology CT scan - abdomen: report reviewed, image reviewed US - abdomen: report reviewed, image reviewed Assessment and Plan Plan: Assessment Chronic obstructive pulmonary disease with acute exacerbation Current Pulmonary embolism, with a history of previous bilateral pulmonary embolism Leukocytosis with elevated liver enzymes Perforated diverticulum Pleuritic chest pain related to pulmonary embolism Hypertension Current active nicotine user Acute on chronic hypoxic respiratory failure Plan Patient is to go to surgery today for perforated diverticulum. KCentra has been ordered to reverse the Xeralto. Medications have been reviewed and will be continued. The patient chronically uses home O2 of 3 L via nasal cannula at all times. Continue with nebulizer treatments and IV steroids. Smoking cessation education provided. We will continue to monitor labs and adjust treatment as necessary.
[2016-06-03] MEDS ORDERED: IV FLUID CONTINUATION 500 ML IV ONE (11:02)
[2016-06-03] MEDS ORDERED: MIDAZOLAM 2 MG/2 ML VIAL ONE (11:39)
[2016-06-03] MEDS ORDERED: GLYCOPYRROLATE 0.2 MG/ML 2 ML VIAL ONE (11:39)
[2016-06-03] MEDS ORDERED: PROPOFOL 10 MG/ML 20 ML VIAL IV ONE (11:39)
[2016-06-03] MEDS ORDERED: fentaNYL (PF) 50 MCG/ML 2 ML AMP ONE (11:39)
[2016-06-03] MEDS ORDERED: LIDOCAINE 1% INJ 10MG/ML (20 ML MDV) ONE (11:39)
[2016-06-03] MEDS ORDERED: NEOSTIGMINE 1 MG/ML 10 ML VIAL ONE (11:39)
[2016-06-03] MEDS ORDERED: HYDROmorphone (PF) 1 MG/ML ONE (11:39)
[2016-06-03] MEDS ORDERED: ROCURONIUM BROMIDE 10 MG/ML 10 ML VIAL IV ONE (11:39)
[2016-06-03] MEDS ORDERED: SUCCINYLCHOLINE CHLORIDE 100 MG/5 ML SYR IV ONE (11:39)
[2016-06-03] MEDS ORDERED: LACTATED RINGERS 1,000 ML IV ONE (12:07)
--- NOTE | 2016-06-03 12:47 | P.OP ---
Date of Procedure: 06/03/16 Preoperative Diagnosis: Perforated diverticulitis Postoperative Diagnosis: Perforated diverticulitis Procedure(s) Performed: Sigmoid colectomy with end colostomy Anesthesia: YOLANDA Surgeon: Dylan Estrella Estimated Blood Loss (ml): 25 Pathology: other (Sigmoid colon) Condition: stable Disposition: PACU Description of Procedure: The patient's placed in the operative table in the supine position. He received Kcentra infusion. His abdomen was prepped and draped after he received general anesthesia. The abdomen was entered through a low midline incision. Upon entering the abdomen there is some purulent fluid seen. The sigmoid colon was quite inflamed. The distal transverse colon was dissected and then a GI stapler was placed across the distal descending colon and fired. The mesentery of the sigmoid colon was then divided with the LigaSure device. A portion of the mesorectum was divided and then using the contour stapler the rectum was divided. The specimen was sent to pathology. The abdomen was irrigated with 3 L normal saline. A suitable spot for the colostomy was chosen on the anterior abdominal wall and then a circular skin incision was made with electrocautery. The subcu tissue divided and then the fascia of the external oblique was divided. The colostomy was then brought up through this incision. The midline fascia was then closed using a 0 PDS suture. Skin was partially closed marlen with Telfa nadja drains placed into 3 areas of the incision. The colostomy was matured with 3-0 Vicryl suture. Patient thought procedure well and was sent to recovery in stable condition.
[2016-06-03] MEDS: HYDROmorphone 1 MG/ML 1 ML SYRINGE IVP ONE ×4 (13:05→14:29)
[2016-06-03] MEDS ORDERED: BELLADONNA-OPIUM 16.2-60 MG 1 EACH SUPP RECTAL ONE (13:32)
[2016-06-03 14:51] LABS: Glucose,Whole Blood 102 mg/dL (75-99)
[2016-06-03] MEDS: D5-0.45% NACL WITH KCL 20MEQ/L 1,000 ML IV SCH ×2 (15:00→22:53)
[2016-06-03] MEDS: cefTRIAXone 2,000 MG in SODIUM CHLORIDE 0.9% 100 ML IVPB SCH (15:59)
[2016-06-03] MEDS: SODIUM CHLORIDE 0.9% 1,000 ML IV SCH (15:59)
[2016-06-03 17:11] LABS: Basophils % (A) 0 %; CH 33.3; Eosinophils % (A) 0 %; HCT 39.9 % (39.0-53.0); HDW 2.05; HGB 12.8 gm/dL (13.0-17.5); Luc # (Auto) 0.17; Luc % (Auto) 1; Lymphocytes # (A) 0.8 k/uL (1.0-4.8); Lymphocytes % (A) 4 %; MCH 32.6 pg (25.0-35.0); MCHC 32.2 g/dL (31.0-37.0); MCV 101.3 fL (80.0-100.0); Macrocytosis Slight; Mean Platelet Volume 8.5; Monocytes # (A) 0.6 k/uL (0-1.0); Monocytes % (A) 3 %; Neutrophils # (A) 16.7 k/uL (1.3-7.7); Neutrophils % (A) 91 %; RBC 3.94 m/uL (4.30-5.90); RDW 14.5 % (11.5-15.5); WBC 18.3 k/uL (3.8-10.6); WBC (Perox) 18.04
[2016-06-03 17:21] LABS: Anion Gap 9 mmol/L; Blood Urea Nitrogen 17 mg/dL (9-20); Calcium 8.1 mg/dL (8.4-10.2); Carbon Dioxide 31 mmol/L (22-30); Chloride 94 mmol/L (98-107); Glucose 130 mg/dL (74-99); Non-African American GFR(MDRD) >60 (>60 ml/min/1.73 sqM); Potassium 4.9 mmol/L (3.5-5.1); Sodium 134 mmol/L (137-145)
[2016-06-03] MEDS: HEPARIN SODIUM,PORCINE 5,000 UNIT/ML 1 ML VIAL SQ SCH (17:47)
[2016-06-03] MEDS: VERAPAMIL 80 MG TAB PO SCH (18:38)
[2016-06-03] MEDS: METOCLOPRAMIDE 5 MG/ML 2 ML VIAL IVP SCH (18:38)
--- NOTE | 2016-06-03 19:06 | CONS ---
DATE OF CONSULTATION: 06/03/2016 REASON FOR CONSULTATION: Perforated bowel and antibiotic recommendation. HISTORY OF PRESENT ILLNESS: The patient is a 55-year-old male who presented to the ER at [facility] on 05/29/2016 with chief complaints of difficulty in breathing and chest pain. Patient has been diagnosed with acute COPD with exacerbation with tracheobronchitis and possibility of a PE, for which the patient has been treated with heparin and subsequently switched over to Xarelto. Patient was doing well in the ICU; however, the patient yesterday started having left lower abdominal pain. Pain has been severe, around 7 to 8 out of 10; some nausea but no vomiting and no diarrhea. Patient subsequently had CT of abdomen and pelvis that was suggestive of perforated bowel. Patient was taken to the OR this morning by Dr. Estrella. The patient is status post sigmoid colectomy and diverting colostomy. Patient has been treated with Levaquin and Flagyl. I was asked to see the patient for further recommendation regarding antibiotic therapy. The patient does have history of an AMPICILLIN ALLERGY with a rash; no history of anaphylaxis. Patient is still in the postoperative status and is slightly lethargic and sleepy. He has received multiple doses of Dilaudid for pain control. The patient denies having any headache; denies having any chest pain or shortness of breath. Occasional cough. Abdominal pain is slightly better than yesterday. REVIEW OF SYSTEMS: CONSTITUTIONAL: Positive for weakness but denies a high-grade fever. EYES: No complaint. ENT: No complaint. RESPIRATORY: As per HPI. CARDIOVASCULAR: No complaint. GENITOURINARY: No complaint. GASTROINTESTINAL: As per HPI. MUSCULOSKELETAL: No complaint. INTEGUMENTARY: No complaint. PSYCHOLOGIC: No complaint. ENDOCRINE: No complaint. NEUROLOGICAL: No complaint. Past medical history is significant for: 1. COPD. 2. DVT. 3. GI bleed. 4. Hypertension. 5. Osteoarthritis. 6. Previous pulmonary embolism. 7. Respiratory disorder. 8. Seizure disorder. 9. Anxiety. Past surgical history is significant for: 1. Hernia repair. 2. EGD. 3. Colonoscopy. SOCIAL HISTORY: The patient is currently an everyday smoker. Drinks. Denies any drug use. FAMILY HISTORY: Sister with a history of skin cancer. Mother with history of breast cancer. ALLERGY: AMPICLLIN with rash. Medications currently include: 1. Kennedy. 2. Aspirin. 3. Pulmicort. 4. Tegretol. 5. Vasotec. 6. Heparin. 7. Dilaudid. 8. Omnipaque. 9. Atrovent. 10. Xopenex. 11. Levofloxacin 500 q.12. 12. Solu-Medrol. 13. Reglan. 14. Flagyl. 15. Nicotine patch. 16. Protonix. 17. Verapamil. On examination, blood pressure is 144/94 with a pulse of 78, temperature 97.5. He is 95% on 3 L nasal cannula. General description is a middle-aged male lying in bed in no distress. No tachypnea or accessory muscles of respiration use. HEENT EXAMINATION: No pallor or scleral icterus. Oral mucous membrane dry. NECK: Trachea is central. No thyromegaly. LUNGS: Unlabored breathing. Clear to auscultation anteriorly. HEART: S1, S2. Tachycardic. ABDOMEN: Soft. Midline incision is clean. Slight distention. Tender to touch. EXTREMITIES: No edema of feet. SKIN EXAMINATION: No rash or mass palpable. NEUROLOGICAL: Patient is awake, alert, oriented x3 Mood and affect normal. LABS: Hemoglobin is 12.5, white count 16.2 with a BUN of 19, creatinine 0.50. Liver enzymes are slightly elevated. No cultures. DIAGNOSTIC IMPRESSION AND PLAN: 1. Patient with secondary peritonitis from perforated sigmoid diverticulitis, status post sigmoid colectomy and diverting colostomy. The likely organism to be covered will be the enteric Gram-negative, both aerobes and anaerobes. The patient was admitted to hospital with possible component of PE. 2. Patient does have AMPICILLIN ALLERGY. That does limit the number of antibiotics we can safely use. PLAN: 1. Will obtain blood cultures x2 STAT. 2. Will start the patient on Rocephin 2 grams daily and continue with the Flagyl, using Rocephin in patient with a history of PENICILLIN ALLERGY with a rash it will be safe. 3. Will follow up on the clinical condition and cultures to further adjust medication if needed. Thank you for this consultation. Will follow this patient along with you. Family present at bedside. Their questions and concerns were answered. VICKY
[2016-06-03] MEDS: HYDROmorphone 1 MG/ML 1 ML SYRINGE IVP PRN ×2 (19:49→22:53)
[2016-06-03] MEDS: LEVOFLOXACIN 500MG-D5W PMX 500 MG in DEXTROSE/WATER 1 100ML.BAG IVPB SCH (20:18)
[2016-06-03] MEDS: LATANOPROST 0.005% OPHTH DROPS 2.5 ML BTL BOTH EYES SCH (20:58)
[2016-06-04] MEDS: METOCLOPRAMIDE 5 MG/ML 2 ML VIAL IVP SCH ×4 (01:05→17:59)
[2016-06-04] MEDS: HEPARIN SODIUM,PORCINE 5,000 UNIT/ML 1 ML VIAL SQ SCH ×3 (01:05→17:51)
[2016-06-04] MEDS: metroNIDAZOLE-NS PMX 500 MG in SALINE 1 100ML.BAG IVPB SCH ×3 (01:05→16:45)
[2016-06-04] MEDS: VERAPAMIL 80 MG TAB PO SCH ×4 (01:05→21:33)
[2016-06-04] MEDS: HYDROmorphone 1 MG/ML 1 ML SYRINGE IVP PRN ×6 (01:06→21:32)
[2016-06-04] MEDS: HYDROcodone/APAP 7.5-325MG 1 EACH TAB PO PRN (03:24)
[2016-06-04 04:45] LABS: Basophils % (A) 0 %; CH 32.6; CHCM 31.4; Eosinophils % (A) 0 %; HCT 41.5 % (39.0-53.0); HDW 1.97; HGB 12.8 gm/dL (13.0-17.5); Luc % (Auto) 1; Lymphocytes # (A) 0.8 k/uL (1.0-4.8); Lymphocytes % (A) 5 %; MCH 32.3 pg (25.0-35.0); MCV 104.2 fL (80.0-100.0); Macrocytosis Slight; Mean Platelet Volume 7.1; Monocytes # (A) 0.5 k/uL (0-1.0); Monocytes % (A) 3 %; Neutrophils # (A) 15.2 k/uL (1.3-7.7); Neutrophils % (A) 91 %; RBC 3.98 m/uL (4.30-5.90); RDW 14.5 % (11.5-15.5); WBC 16.7 k/uL (3.8-10.6); WBC (Perox) 16.76
[2016-06-04] MEDS: D5-0.45% NACL WITH KCL 20MEQ/L 1,000 ML IV SCH ×3 (06:43→23:53)
[2016-06-04] MEDS ORDERED: Magnesium Replacement Protocol 1 EACH MISC MISCELLANE PRN (07:50)
[2016-06-04] MEDS: LEVALBUTEROL NEB (CONC) 1.25 MG/0.5 ML AMP INHALATION SCH ×4 (08:01→19:46)
[2016-06-04] MEDS: FORMOTEROL FUMARATE 20 MCG/2 ML NEBU INHALATION SCH ×2 (08:01→19:46)
[2016-06-04] MEDS: IPRATROPIUM 0.5 MG/2.5 ML NEBU INHALATION SCH ×4 (08:01→19:46)
[2016-06-04] MEDS: BUDESONIDE 1 MG/2 ML NEBU INHALATION SCH ×2 (08:11→19:47)
--- NOTE | 2016-06-04 08:19 | P.PN ---
Subjective 55-year-old seen in the intensive care unit this morning sitting up in bed reports the pain medication is effective for pain control. Patient is postop day 1 sigmoid colectomy with end colostomy for a perforated diverticulitis done on the 03 of June patient states is not belching not passing gas no stool from the ostomy patient is afebrile temp is 98.2 nasal cannula at 3 L keeping a sat 97% blood pressure 131/87 patient states "feeling much better this morning" denying chest pain denying dizziness lightheadedness or shortness of breath hemoglobin stable at 12.8 and the white counts morning 16.7 the CMP is pending Objective - Vital Signs Vital signs: Vital Signs Temp 98.2 F 06/04/16 04:00 Pulse 74 06/04/16 07:00 Resp 13 06/04/16 07:00 BP 131/87 06/04/16 07:00 Pulse Ox 97 06/04/16 07:00 Intake & Output 06/03/16 06/04/16 06/04/16 18:59 06:59 18:59 Intake Total 1750 1575 125 Output Total 863 1410 75 Balance 887 165 50 Weight 73.3 kg Intake: IV 1375 100 Lactated Ringers 1,000 ml 125 @ 125 mls/hr IV .Q8H EMILY Rx#:[id number] Levofloxacin 500Mg-D5w 100 Pmx 500 mg In Dextrose/ Water 1 100ml.bag @ 100 mls/hr IVPB Q24H EMILY Rx#: [id number] Intake, IV Titration 375 1475 125 Amount D5-0.45% NaCl with KCl 375 1375 125 20Meq/l 1,000 ml @ 125 mls/hr IV .Q8H EMILY Rx#: [id number] metroNIDAZOLE-NS PMX 500 100 mg In Saline 1 100ml.bag @ 100 mls/hr IVPB Q8HR EMILY Rx#:[id number] Oral 0 Output: Urine 838 1410 75 Estimated Blood Loss 25 Other: Voiding Method Toilet Indwelling Catheter # Voids 1 - Exam Physical exam 55-year-old gentleman sitting up in the bed oriented 3 pleasant cooperative reports pain medication effective for pain control Lungs diminished at the bases otherwise adequate air movement currently on 3 L keeping a sat greater than 95% no cough noted no conversational dyspnea noted no wheezing Heart S1-S2 audible and regular denying chest pain Abdomen surgical tenderness not distended surgical dressings dry ostomy left lower quadrant stoma pink no stool noted no reports of nausea vomiting bowel tones present 4 adequate urine output Extremities Venodyne's on to the bilateral lower extremities no edema noted - Labs CBC & Chem 7: 06/04/16 04:16 06/03/16 16:49 Labs: Abnormal Lab Results - Last 24 Hours (Table) 06/03/16 06/03/16 06/03/16 Range/Units 14:48 16:49 16:49 WBC 18.3 H (3.8-10.6) k/uL RBC 3.94 L (4.30-5.90) m/uL Hgb 12.8 L (13.0-17.5) gm/dL MCV 101.3 H (80.0-100.0) fL Neutrophils # 16.7 H (1.3-7.7) k/uL Lymphocytes # 0.8 L (1.0-4.8) k/uL Sodium 134 L (137-145) mmol/L Chloride 94 L (98-107) mmol/L Carbon Dioxide 31 H (22-30) mmol/L Creatinine 0.51 L (0.66-1.25) mg/dL Glucose 130 H (74-99) mg/dL POC Glucose (mg/dL) 102 H (75-99) mg/dL Calcium 8.1 L (8.4-10.2) mg/dL 06/04/16 Range/Units 04:16 WBC 16.7 H (3.8-10.6) k/uL RBC 3.98 L (4.30-5.90) m/uL Hgb 12.8 L (13.0-17.5) gm/dL MCV 104.2 H (80.0-100.0) fL Neutrophils # 15.2 H (1.3-7.7) k/uL Lymphocytes # 0.8 L (1.0-4.8) k/uL Sodium (137-145) mmol/L Chloride (98-107) mmol/L Carbon Dioxide (22-30) mmol/L Creatinine (0.66-1.25) mg/dL Glucose (74-99) mg/dL POC Glucose (mg/dL) (75-99) mg/dL Calcium (8.4-10.2) mg/dL Assessment and Plan Plan: Impression : Present on admission shortness of breath multifactorial suspect due to left lower lobe pulmonary emboli with decompensated congestive heart failure systolic dysfunction with acute exacerbation COPD Subtherapeutic on INR 1.1 on admission Chronic hypoxic respiratory failure supplemental home O2 Chronic nicotine dependency Present on admission pleuritic chest pain suspect due to pulmonary emboli Acute exacerbation of COPD Acute on chronic hypoxic respiratory failure essential hypertension Echocardiogram done on May 29 show left ventricular systolic function mildly impaired EF between 45 and 50% Present on admission sinus tachycardic likely reactive Chronic debility due to comorbidities CT CAT scan of the chest shows emphysema Abdominal pain suspect due to perforated diverticulitis Status post June 03 sigmoid colectomy with end colostomy for perforated diverticulitis Plan postop surgical care per surgical service Pain control Restart when appropriate Xarelto 15 mg twice a day for 3 weeks then 20 mg daily for treatment of the pulmonary emboli Resume home meds as appropriate Further recommendations pending Diet to be advanced per surgical service DVT and GI prophylaxis The above dictated assessment and findings were discussed with dr ramirez Impression and the plan of care have been dictated as directed. Anastasia Garcia nurse practitioner acting as a scribe for dr ramirez
[2016-06-04] MEDS: cefTRIAXone 2,000 MG in SODIUM CHLORIDE 0.9% 100 ML IVPB SCH (08:22)
[2016-06-04] MEDS: NICOTINE 21MG/24HR PATCH TRANSDERM SCH (08:22)
[2016-06-04] MEDS: methylPREDNISolone SOD SUCCI 40 MG/ML 1 ML VIAL IV SCH ×2 (08:23→20:26)
[2016-06-04] MEDS ORDERED: HYDROmorphone 2 MG/ML 1 ML SYRINGE IVP PRN (09:31)
--- NOTE | 2016-06-04 10:42 | P.PN ---
Subjective Principal diagnosis: Diverticular perforation Patient is a 55-year-old white male admitted for treatment of pneumonia and possible left lower lobe pulmonary embolus. Patient subsequently was evaluated for abdominal pain apparently present on admission with CAT scan showing free air with possible sigmoid colon diverticular perforation. Patient was taken for emergent sigmoid colectomy with end colostomy on 06/03/2016. Patient tolerated procedure well. This morning, patient is evaluated in the intensive care unit. Patient states he feels better than yesterday. Patient is complaining of some general "soreness to his abdomen." Denies chills, fevers, nausea, vomiting, increased shortness of breath, or chest pain. Denies flatus or burping. Afebrile. WBC decreased to 16.7. Hemoglobin stable at 12.8. Urine output adequate. Objective - Vital Signs Vital signs: Vital Signs Temp 98.4 F 06/04/16 08:00 Pulse 80 06/04/16 08:30 Resp 19 06/04/16 08:30 BP 151/102 06/04/16 08:30 Pulse Ox 96 06/04/16 08:30 Intake & Output 06/03/16 06/04/16 06/04/16 18:59 06:59 18:59 Intake Total 1750 1575 475 Output Total 863 1410 305 Balance 887 165 170 Weight 73.3 kg Intake: IV 1375 100 Lactated Ringers 1,000 ml 125 @ 125 mls/hr IV .Q8H EMILY Rx#:[id number] Levofloxacin 500Mg-D5w 100 Pmx 500 mg In Dextrose/ Water 1 100ml.bag @ 100 mls/hr IVPB Q24H EMILY Rx#: [id number] Intake, IV Titration 375 1475 475 Amount D5-0.45% NaCl with KCl 375 1375 375 20Meq/l 1,000 ml @ 125 mls/hr IV .Q8H EMILY Rx#: [id number] metroNIDAZOLE-NS PMX 500 100 100 mg In Saline 1 100ml.bag @ 100 mls/hr IVPB Q8HR EMILY Rx#:[id number] Oral 0 Output: Urine 838 1410 305 Estimated Blood Loss 25 Other: Voiding Method Toilet Indwelling Catheter Indwelling Catheter # Voids 1 - Exam GENERAL: Pt awake and alert, well-appearing, well-nourished, and in no acute distress. ABDOMEN: Soft, mild incisional tenderness, mildly distended, normoactive bowel sounds. No guarding, no rebound. No masses or organomegaly appreciated. Midline surgical incision dry, intact intact, partially closed with marlen with Telfa nadja drains placed into 3 areas of the incision. Left lower quadrant ostomy viable. Colostomy bag currently being changed per nursing staff. NEUROLOGICAL: Pt oriented x 3. PSYCH: Normal mood, normal affect. - Labs CBC & Chem 7: 06/04/16 04:16 06/03/16 16:49 Labs: Abnormal Lab Results - Last 24 Hours (Table) 06/03/16 06/03/16 06/03/16 Range/Units 14:48 16:49 16:49 WBC 18.3 H (3.8-10.6) k/uL RBC 3.94 L (4.30-5.90) m/uL Hgb 12.8 L (13.0-17.5) gm/dL MCV 101.3 H (80.0-100.0) fL Neutrophils # 16.7 H (1.3-7.7) k/uL Lymphocytes # 0.8 L (1.0-4.8) k/uL Sodium 134 L (137-145) mmol/L Chloride 94 L (98-107) mmol/L Carbon Dioxide 31 H (22-30) mmol/L Creatinine 0.51 L (0.66-1.25) mg/dL Glucose 130 H (74-99) mg/dL POC Glucose (mg/dL) 102 H (75-99) mg/dL Calcium 8.1 L (8.4-10.2) mg/dL 06/04/16 Range/Units 04:16 WBC 16.7 H (3.8-10.6) k/uL RBC 3.98 L (4.30-5.90) m/uL Hgb 12.8 L (13.0-17.5) gm/dL MCV 104.2 H (80.0-100.0) fL Neutrophils # 15.2 H (1.3-7.7) k/uL Lymphocytes # 0.8 L (1.0-4.8) k/uL Sodium (137-145) mmol/L Chloride (98-107) mmol/L Carbon Dioxide (22-30) mmol/L Creatinine (0.66-1.25) mg/dL Glucose (74-99) mg/dL POC Glucose (mg/dL) (75-99) mg/dL Calcium (8.4-10.2) mg/dL Assessment and Plan Plan: Impression: 1. Perforated sigmoid colon diverticulitis status post sigmoid colectomy with end colostomy on 05/06/2016. Plan: 1. Continue nothing by mouth diet except medications until patient passes flatus. IV antibiotics. Continue IV hydration. Continue local wound care. Monitor ostomy. Continue supportive treatment and pain management. Increase activity as tolerated. Continue incentive spirometry 10 times an hour while awake. Continue subcu heparin 5000 units every 8 hours. Patient may resume Xarelto tomorrow. Continue to follow the medical team. Repeat CBC and BMP in a.m. From a surgical standpoint, patient may transfer out of the intensive care unit to the surgical unit. The above impression and plan have been discussed and directed by Dr. Estrella. Jing RECINOS acting as scribe for Dr. Estrella.
--- NOTE | 2016-06-04 11:04 | P.PN ---
Subjective This is a 55-year-old male who was admitted to the hospital with an acute COPD exacerbation, tracheobronchitis and severe wheezing. Currently the patient is hemodynamically stable. The patient was initially on heparin and had been switched to Xeralto. Apparently, the patient had a new complaint that just started hours polyp prior with a left lower quadrant abdominal pain. The patient underwent a CAT scan which showed free air with possible sigmoid colon diverticular perforation. The patient did go for surgery yesterday after he received a dose of K Centra prior to going to surgery to reverse his Xeralto. Upon examination the patient is resting up in bed on 2-3 L of oxygen. He states that his breathing is better and under control. The patient complains of only generalized abdominal pain post surgery. He has been afebrile. Objective - Vital Signs Vital signs: Vital Signs Temp 98.4 F 06/04/16 08:00 Pulse 80 06/04/16 08:30 Resp 19 06/04/16 08:30 BP 151/102 06/04/16 08:30 Pulse Ox 96 06/04/16 08:30 Intake & Output 06/03/16 06/04/16 06/04/16 18:59 06:59 18:59 Intake Total 1750 1575 475 Output Total 863 1410 305 Balance 887 165 170 Weight 73.3 kg Intake: IV 1375 100 Lactated Ringers 1,000 ml 125 @ 125 mls/hr IV .Q8H EMILY Rx#:[id number] Levofloxacin 500Mg-D5w 100 Pmx 500 mg In Dextrose/ Water 1 100ml.bag @ 100 mls/hr IVPB Q24H EMILY Rx#: [id number] Intake, IV Titration 375 1475 475 Amount D5-0.45% NaCl with KCl 375 1375 375 20Meq/l 1,000 ml @ 125 mls/hr IV .Q8H EMILY Rx#: [id number] metroNIDAZOLE-NS PMX 500 100 100 mg In Saline 1 100ml.bag @ 100 mls/hr IVPB Q8HR EMILY Rx#:[id number] Oral 0 Output: Urine 838 1410 305 Estimated Blood Loss 25 Other: Voiding Method Toilet Indwelling Catheter Indwelling Catheter # Voids 1 - Exam GENERAL EXAM: Alert, active, comfortable in no apparent distress. HEAD: Normocephalic. EYES: Normal reaction of pupils, equal size. NOSE: Clear with pink turbinates. THROAT: No erythema or exudates. NECK: No masses, no JVD. CHEST: No chest wall deformity. LUNGS: Lung sounds noted to be tight and diminished. There is some fine wheezing on expiratory. CVS: S1 and S2 normal with no audible mumurs, regular rhythm. ABDOMEN: Hypoactive bowel sounds. Patient has a midline surgical incision that is dry and intact, has dressing in place. He is a left lower quadrant ostomy and has already started to produce stool out of it. EXTREMITIES: No edema noted, pedal pulses palpable. SKIN: No rashes CENTRAL NERVOUS SYSTEM: No focal deficits, tone is normal in all 4 extremities. - Labs CBC & Chem 7: 06/04/16 04:16 06/03/16 16:49 Labs: Abnormal Lab Results - Last 24 Hours (Table) 06/03/16 06/03/16 06/03/16 Range/Units 14:48 16:49 16:49 WBC 18.3 H (3.8-10.6) k/uL RBC 3.94 L (4.30-5.90) m/uL Hgb 12.8 L (13.0-17.5) gm/dL MCV 101.3 H (80.0-100.0) fL Neutrophils # 16.7 H (1.3-7.7) k/uL Lymphocytes # 0.8 L (1.0-4.8) k/uL Sodium 134 L (137-145) mmol/L Chloride 94 L (98-107) mmol/L Carbon Dioxide 31 H (22-30) mmol/L Creatinine 0.51 L (0.66-1.25) mg/dL Glucose 130 H (74-99) mg/dL POC Glucose (mg/dL) 102 H (75-99) mg/dL Calcium 8.1 L (8.4-10.2) mg/dL 06/04/16 Range/Units 04:16 WBC 16.7 H (3.8-10.6) k/uL RBC 3.98 L (4.30-5.90) m/uL Hgb 12.8 L (13.0-17.5) gm/dL MCV 104.2 H (80.0-100.0) fL Neutrophils # 15.2 H (1.3-7.7) k/uL Lymphocytes # 0.8 L (1.0-4.8) k/uL Sodium (137-145) mmol/L Chloride (98-107) mmol/L Carbon Dioxide (22-30) mmol/L Creatinine (0.66-1.25) mg/dL Glucose (74-99) mg/dL POC Glucose (mg/dL) (75-99) mg/dL Calcium (8.4-10.2) mg/dL Assessment and Plan Plan: Assessment Chronic obstructive pulmonary disease with acute exacerbation Current Pulmonary embolism, with a history of previous bilateral pulmonary embolism Leukocytosis with elevated liver enzymes Perforated diverticulum Pleuritic chest pain related to pulmonary embolism Hypertension Current active nicotine user Acute on chronic hypoxic respiratory failure Plan The patient can be downgraded to medical surgical floor. Medications have been reviewed and will be continued. The patient chronically uses home O2 of 3 L via nasal cannula at all times. Continue with nebulizer treatments and IV steroids. Smoking cessation education provided. The patient should be started back on Xeralto in the near future. We will continue to monitor labs and adjust treatment as necessary.
[2016-06-04] MEDS: PANTOPRAZOLE 40 MG TABLET PO SCH (11:08)
[2016-06-04] MEDS: MAGNESIUM SULFATE-D5W PMX 1 GM in DEXTROSE/WATER 1 100ML.BAG IVPB SCH ×2 (11:08→12:00)
[2016-06-04] MEDS: carBAMazepine 200 MG TAB PO SCH ×2 (11:08→20:26)
[2016-06-04] MEDS: NADOLOL 20 MG TAB PO SCH ×2 (11:08→20:26)
[2016-06-04] MEDS: ASPIRIN 81 MG CHEW PO SCH (11:08)
--- NOTE | 2016-06-04 13:51 | PN ---
DATE OF SERVICE: 06/03/2016 This patient complains of left lower quadrant pain the night before and abdominal series and the CAT scan was suggestive of acute abdomen and possible perforated diverticulum. Patient underwent surgery today. Patient is comfortable at present, he is in no acute distress. Patient is afebrile. Respirations are not labored. Blood pressure is 149/98 mmHg. First and second heart sounds are normal. Lungs reveal a few scattered wheezes. ASSESSMENT AND PLAN: Patient is stable status post sigmoid colectomy. Continue the current medications.
--- NOTE | 2016-06-04 13:53 | PN ---
DATE OF SERVICE: 06/04/2016 This patient is status post colectomy. Patient is comfortable. Patient is afebrile. Blood pressure is 136/86 mmHg, heart rate is 80 per minute. First and second heart sounds are normal. Lung examination reveals a few scattered wheezes. We will continue the current medications and we will recommend to resume the patient's Xarelto when it is okay with Dr. Estrella.
--- NOTE | 2016-06-04 16:33 | PN ---
DATE OF SERVICE: 06/04/2016 REASON FOR FOLLOWUP: Secondary peritonitis from perforated diverticulitis. INTERVAL HISTORY: The patient is afebrile; has been breathing comfortably. Denies significant chest pain or shortness of breath or cough. Abdominal pain is currently improved. No nausea or vomiting. Denies having any output in his colostomy bag. On examination, blood pressure is 136/86 with a pulse of 79, temperature 98. He is 96% on 2 L nasal cannula. General description is a middle-aged male lying in bed in no distress. RESPIRATORY SYSTEM: Unlabored breathing. Clear to auscultation anteriorly. HEART: S1, S2. Regular rate and rhythm. ABDOMEN: Soft, nondistended. Incision is currently covered. No output in colostomy bag. EXTREMITIES: No edema of feet. LABS: Hemoglobin is 12.8, white count 16.7. Blood culture so far negative. DIAGNOSTIC IMPRESSION AND PLAN: Patient with secondary peritonitis from perforated sigmoid diverticulitis, post diverting colostomy. At this time the patient is continued on Rocephin and Flagyl. His white count has slightly improved. Blood culture so far negative. Will continue to monitor him closely and continue supportive care.
[2016-06-04] MEDS: SODIUM CHLORIDE 0.9% 1,000 ML IV SCH (16:43)
[2016-06-04] MEDS: LATANOPROST 0.005% OPHTH DROPS 2.5 ML BTL BOTH EYES SCH (20:26)
[2016-06-04] MEDS: LEVOFLOXACIN 500MG-D5W PMX 500 MG in DEXTROSE/WATER 1 100ML.BAG IVPB SCH (20:27)
[2016-06-05] MEDS: METOCLOPRAMIDE 5 MG/ML 2 ML VIAL IVP SCH ×4 (00:27→19:31)
[2016-06-05] MEDS: HEPARIN SODIUM,PORCINE 5,000 UNIT/ML 1 ML VIAL SQ SCH ×2 (00:28→07:56)
[2016-06-05] MEDS: metroNIDAZOLE-NS PMX 500 MG in SALINE 1 100ML.BAG IVPB SCH ×3 (00:33→15:13)
[2016-06-05] MEDS: HYDROcodone/APAP 7.5-325MG 1 EACH TAB PO PRN ×3 (06:19→18:53)
[2016-06-05] MEDS: IPRATROPIUM 0.5 MG/2.5 ML NEBU INHALATION SCH ×4 (07:21→20:35)
[2016-06-05] MEDS: LEVALBUTEROL NEB (CONC) 1.25 MG/0.5 ML AMP INHALATION SCH ×4 (07:21→20:35)
[2016-06-05] MEDS: FORMOTEROL FUMARATE 20 MCG/2 ML NEBU INHALATION SCH ×2 (07:21→20:35)
[2016-06-05] MEDS: BUDESONIDE 1 MG/2 ML NEBU INHALATION SCH ×2 (07:21→20:35)
[2016-06-05] MEDS: NICOTINE 21MG/24HR PATCH TRANSDERM SCH (07:56)
[2016-06-05] MEDS: PANTOPRAZOLE 40 MG TABLET PO SCH (07:56)
[2016-06-05] MEDS: ASPIRIN 81 MG CHEW PO SCH (07:57)
[2016-06-05] MEDS: carBAMazepine 200 MG TAB PO SCH ×2 (07:59→21:57)
[2016-06-05] MEDS: NADOLOL 20 MG TAB PO SCH ×2 (07:59→21:57)
[2016-06-05] MEDS: methylPREDNISolone SOD SUCCI 40 MG/ML 1 ML VIAL IV SCH ×2 (07:59→21:59)
[2016-06-05] MEDS: VERAPAMIL 80 MG TAB PO SCH ×3 (08:00→22:30)
[2016-06-05] MEDS: D5-0.45% NACL WITH KCL 20MEQ/L 1,000 ML IV SCH ×4 (08:14→21:20)
[2016-06-05 09:37] LABS: Basophils % (A) 0 %; CH 32.4; CHCM 31.4; Eosinophils % (A) 0 %; HCT 41.6 % (39.0-53.0); HDW 1.96; HGB 12.7 gm/dL (13.0-17.5); Luc # (Auto) 0.21; Luc % (Auto) 2; Lymphocytes % (A) 8 %; MCH 31.6 pg (25.0-35.0); MCHC 30.5 g/dL (31.0-37.0); MCV 103.7 fL (80.0-100.0); Macrocytosis Slight; Mean Platelet Volume 7.4; Monocytes # (A) 0.5 k/uL (0-1.0); Monocytes % (A) 4 %; Neutrophils # (A) 11.5 k/uL (1.3-7.7); Neutrophils % (A) 87 %; RBC 4.01 m/uL (4.30-5.90); RDW 14.3 % (11.5-15.5); WBC 13.3 k/uL (3.8-10.6); WBC (Perox) 14.02
[2016-06-05 09:44] LABS: Anion Gap 7 mmol/L; Blood Urea Nitrogen 14 mg/dL (9-20); Calcium 8.5 mg/dL (8.4-10.2); Carbon Dioxide 33 mmol/L (22-30); Chloride 94 mmol/L (98-107); Glucose 165 mg/dL (74-99); Non-African American GFR(MDRD) >60 (>60 ml/min/1.73 sqM); Potassium 5.2 mmol/L (3.5-5.1); Sodium 134 mmol/L (137-145)
[2016-06-05] MEDS: HYDROmorphone 1 MG/ML 1 ML SYRINGE IVP PRN ×3 (11:14→21:12)
[2016-06-05] MEDS: cefTRIAXone 2,000 MG in SODIUM CHLORIDE 0.9% 100 ML IVPB SCH (11:29)
--- NOTE | 2016-06-05 11:43 | P.PN ---
Subjective Principal diagnosis: Diverticular perforation Patient is a 55-year-old white male admitted for treatment of pneumonia and possible left lower lobe pulmonary embolus. Patient subsequently was evaluated for abdominal pain apparently present on admission with CAT scan showing free air with possible sigmoid colon diverticular perforation. Patient was taken for emergent sigmoid colectomy with end colostomy on 06/03/2016. Patient tolerated procedure well. This morning, patient is evaluated on the medical floor. Patient states he feels better than yesterday. Patient is complaining of some general "soreness to his abdomen." Denies chills, fevers, nausea, vomiting, increased shortness of breath, or chest pain. Denies flatus or burping. Tolerating clear liquid diet. Afebrile. WBC decreased to 13.3. Hemoglobin stable at 12.7. Urine output adequate. Objective - Vital Signs Vital signs: Vital Signs Temp 97.5 F L 06/05/16 08:08 Pulse 76 06/05/16 08:08 Resp 18 06/05/16 08:08 BP 145/87 06/05/16 08:08 Pulse Ox 98 06/05/16 08:08 Intake & Output 06/04/16 06/05/16 06/05/16 18:59 06:59 18:59 Intake Total 700 1075 Output Total 1005 1250 Balance -305 -175 Intake: IV 1075 D5-0.45% NaCl with KCl 875 20Meq/l 1,000 ml @ 125 mls/hr IV .Q8H [facility] Rx#: [id number] Levofloxacin 500Mg-D5w 100 Pmx 500 mg In Dextrose/ Water 1 100ml.bag @ 100 mls/hr IVPB Q24H [facility] Rx#: [id number] metroNIDAZOLE-NS PMX 500 100 mg In Saline 1 100ml.bag @ 100 mls/hr IVPB Q8HR [facility] Rx#:[id number] Intake, IV Titration 700 Amount D5-0.45% NaCl with KCl 500 20Meq/l 1,000 ml @ 125 mls/hr IV .Q8H [facility] Rx#: [id number] Magnesium Sulfate-D5w Pmx 100 1 gm In Dextrose/Water 1 100ml.bag @ 100 mls/hr IVPB Q1H [facility] Rx#: [id number] metroNIDAZOLE-NS PMX 500 100 mg In Saline 1 100ml.bag @ 100 mls/hr IVPB Q8HR [facility] Rx#:[id number] Output: Urine 1005 1250 Other: Voiding Method Indwelling Catheter Toilet Toilet Urinal Urinal # Voids 2 - Exam GENERAL: Pt awake and alert, well-appearing, well-nourished, and in no acute distress. ABDOMEN: Soft, mild incisional tenderness, nondistended, normoactive bowel sounds. No guarding, no rebound. No masses or organomegaly appreciated. Midline surgical incision dry, intact, partially closed with marlen with Telfa nadja drains placed into 3 areas of the incision, no erythema or purulent drainage. Left lower quadrant ostomy viable. Small amount of dark brown stool noted in colostomy bag, no flatus. NEUROLOGICAL: Pt oriented x 3. PSYCH: Normal mood, normal affect. - Labs CBC & Chem 7: 06/05/16 08:19 06/05/16 08:19 Labs: Abnormal Lab Results - Last 24 Hours (Table) 06/05/16 06/05/16 Range/Units 08:19 08:19 WBC 13.3 H (3.8-10.6) k/uL RBC 4.01 L (4.30-5.90) m/uL Hgb 12.7 L (13.0-17.5) gm/dL MCV 103.7 H (80.0-100.0) fL MCHC 30.5 L (31.0-37.0) g/dL Neutrophils # 11.5 H (1.3-7.7) k/uL Sodium 134 L (137-145) mmol/L Potassium 5.2 H (3.5-5.1) mmol/L Chloride 94 L (98-107) mmol/L Carbon Dioxide 33 H (22-30) mmol/L Creatinine 0.57 L (0.66-1.25) mg/dL Glucose 165 H (74-99) mg/dL Microbiology - Last 24 Hours (Table) 06/03/16 17:10 Blood Culture - Preliminary Blood No Growth after 24 hours 06/03/16 16:49 Blood Culture - Preliminary Blood No Growth after 24 hours Assessment and Plan Plan: Impression: 1. Perforated sigmoid colon diverticulitis status post sigmoid colectomy with end colostomy on 05/06/2016. Plan: 1. Continue clear liquid diet. Continue IV antibiotics. Continue IV hydration. Continue local wound care. Monitor ostomy. Continue supportive treatment and pain management. Increase activity as tolerated. Continue incentive spirometry 10 times an hour while awake. Continue subcu heparin 5000 units every 8 hours. Patient may resume Xarelto today. Continue to follow the medical team. Repeat CBC and BMP in a.m. The above impression and plan have been discussed and directed by Dr. Estrella. Jing RECINOS acting as scribe for Dr. Estrella.
--- NOTE | 2016-06-05 12:12 | PN ---
Mr. Jamil Tomlinson who is a 55-year-old male, seen, evaluated, examined on the fifth floor. This is a patient postoperative for perforated bowel and colostomy. Clinically doing well except has some soreness at the operative site. Respiratory status is stable. The patient is being resumed on his Xarelto for his pulmonary embolism. His last set of vitals include blood pressure is 145/87, respiratory rate 18, pulse 76, temperature 98, saturation 95% to 98% on 3 L oxygen. Current medications reviewed. HEENT: Unremarkable. NECK: Supple. LUNGS: Good air entry bilaterally with very fine expiratory rhonchi. HEART: Regular rate and rhythm. S1 and S2 audible. ABDOMEN: Soft. No rebound or rigidity. EXTREMITIES: +1. NEUROLOGICAL EXAMINATION: Otherwise, awake and alert. No focal neurological deficit. IMPRESSION: 1. Abdominal sepsis related to proximal transverse colon perforation. 2. Pulmonary embolism. The anticoagulation has been on hold related to recent surgery. Once cleared by surgical services, will resume Xarelto. 3. Severe chronic obstructive pulmonary disease, emphysema and chronic hypoxic respiratory failure. 4. Generalized weakness and medical debility and component of protein calorie malnourishment. Plan as above. Continue antibiotics, supportive care. Continue breathing treatments. Continue current dose of steroids. Will start tapering it down as well To initiate Xarelto once cleared by surgical services. Will follow.
--- NOTE | 2016-06-05 12:26 | PN ---
DATE OF SERVICE: 06/05/2016 Reason for follow up is secondary peritonitis from perforated sigmoid diverticulitis. INTERVAL HISTORY: The patient is afebrile. He has been breathing comfortably. Denies significant chest pain, shortness of breath or cough. Abdominal pain has been improving. Did have slight output in his colostomy bag. On examination, blood pressure is 145/87 with a pulse of 76, temperature 97.5. He is 98% on 3 L nasal cannula. General description is a middle-age male lying in bed in no distress. RESPIRATORY SYSTEM: Unlabored breathing. Clear to auscultation anteriorly. HEART: S1, S2. Regular rate and rhythm. ABDOMEN: Soft, slight output in his colostomy bag. Incision is clean. LABS: Hemoglobin is 12.7, white count down to 13.3 with a BUN of 14, creatinine 0.57. Blood culture so far negative. DIAGNOSTIC IMPRESSION AND PLAN: Patient with secondary peritonitis from ruptured diverticulitis, status post diverting colostomy. Patient at this time will continue Rocephin and Flagyl. Will continue to monitor him closely. White count is improving. Blood cultures so far negative.
--- NOTE | 2016-06-05 14:57 | P.PN ---
Subjective 55-year-old being seen on rounds this morning. Patient is sitting up in bed states breathing feels improved. Patient reports that the pain medication has been effective for pain control. Patient has been up ambulating in the hallway independently. Patient states his belching passing no gas. This been no stool out of the ostomy. Tolerating clear liquid diet Patients being followed by pulmonology and surgical service Patient is postop on June 03 emergent sigmoid colectomy with end colostomy for possible sigmoid colon diverticular perforation as evident on a CAT scan of the abdomen and pelvis showing free air Objective - Vital Signs Vital signs: Vital Signs Temp 97.5 F L 06/05/16 08:08 Pulse 76 06/05/16 12:24 Resp 18 06/05/16 08:08 BP 145/87 06/05/16 08:08 Pulse Ox 98 06/05/16 08:08 Intake & Output 06/04/16 06/05/16 06/05/16 18:59 06:59 18:59 Intake Total 700 1075 Output Total 1005 1250 Balance -305 -175 Intake: IV 1075 D5-0.45% NaCl with KCl 875 20Meq/l 1,000 ml @ 125 mls/hr IV .Q8H [facility] Rx#: [id number] Levofloxacin 500Mg-D5w 100 Pmx 500 mg In Dextrose/ Water 1 100ml.bag @ 100 mls/hr IVPB Q24H [facility] Rx#: [id number] metroNIDAZOLE-NS PMX 500 100 mg In Saline 1 100ml.bag @ 100 mls/hr IVPB Q8HR [facility] Rx#:[id number] Intake, IV Titration 700 Amount D5-0.45% NaCl with KCl 500 20Meq/l 1,000 ml @ 125 mls/hr IV .Q8H [facility] Rx#: [id number] Magnesium Sulfate-D5w Pmx 100 1 gm In Dextrose/Water 1 100ml.bag @ 100 mls/hr IVPB Q1H [facility] Rx#: [id number] metroNIDAZOLE-NS PMX 500 100 mg In Saline 1 100ml.bag @ 100 mls/hr IVPB Q8HR [facility] Rx#:[id number] Output: Urine 1005 1250 Other: Voiding Method Indwelling Catheter Toilet Toilet Urinal Urinal # Voids 2 - Exam Physical exam 55-year-old seen this morning on rounds sitting up in bed pleasant cooperative oriented 3 Lungs essentially clear adequate air entry on room air no cough no conversational dyspnea Heart S1-S2 audible regular denying chest pain Abdomen surgical sites dressings dry ostomy left lower quadrant no stool noted all tones present no reports of nausea vomiting states urinating no difficulty Extremities no evidence of edema Venodyne's on to the bilateral lower extremities - Labs CBC & Chem 7: 06/05/16 08:19 06/05/16 08:19 Labs: Abnormal Lab Results - Last 24 Hours (Table) 06/05/16 06/05/16 Range/Units 08:19 08:19 WBC 13.3 H (3.8-10.6) k/uL RBC 4.01 L (4.30-5.90) m/uL Hgb 12.7 L (13.0-17.5) gm/dL MCV 103.7 H (80.0-100.0) fL MCHC 30.5 L (31.0-37.0) g/dL Neutrophils # 11.5 H (1.3-7.7) k/uL Sodium 134 L (137-145) mmol/L Potassium 5.2 H (3.5-5.1) mmol/L Chloride 94 L (98-107) mmol/L Carbon Dioxide 33 H (22-30) mmol/L Creatinine 0.57 L (0.66-1.25) mg/dL Glucose 165 H (74-99) mg/dL Microbiology - Last 24 Hours (Table) 06/03/16 17:10 Blood Culture - Preliminary Blood No Growth after 24 hours 06/03/16 16:49 Blood Culture - Preliminary Blood No Growth after 24 hours Assessment and Plan Plan: Impression : Present on admission shortness of breath multifactorial suspect due to left lower lobe pulmonary emboli with decompensated congestive heart failure systolic dysfunction with acute exacerbation COPD Subtherapeutic on INR 1.1 on admission Chronic hypoxic respiratory failure supplemental home O2 Chronic nicotine dependency Present on admission pleuritic chest pain suspect due to pulmonary emboli Acute exacerbation of COPD Acute on chronic hypoxic respiratory failure essential hypertension Echocardiogram done on May 29 show left ventricular systolic function mildly impaired EF between 45 and 50% Present on admission sinus tachycardic likely reactive Chronic debility due to comorbidities CT CAT scan of the chest shows emphysema Abdominal pain suspect due to perforated diverticulitis Status post June 03 sigmoid colectomy with end colostomy for perforated diverticulitis Plan postop surgical care per surgical service Pain control Restart when appropriate Xarelto 15 mg twice a day for 3 weeks then 20 mg daily for treatment of the pulmonary emboli surgery indicates okay 2 resume to Xarelto Resume home meds as appropriate Further recommendations pending Diet to be advanced per surgical service DVT and GI prophylaxis The above dictated assessment and findings were discussed with dr ramirez Impression and the plan of care have been dictated as directed. Anastasia Garcia nurse practitioner acting as a scribe for dr ramirez
[2016-06-05 15:36] VITALS: BMI 23.8
[2016-06-05] MEDS: SODIUM CHLORIDE 0.9% 1,000 ML IV SCH (16:01)
[2016-06-05] MEDS: RIVAROXABAN 15 MG TAB PO SCH (19:31)
[2016-06-05] MEDS: LATANOPROST 0.005% OPHTH DROPS 2.5 ML BTL BOTH EYES SCH ×2 (21:57→22:30)
[2016-06-05] MEDS: LEVOFLOXACIN 500MG-D5W PMX 500 MG in DEXTROSE/WATER 1 100ML.BAG IVPB SCH (21:58)
[2016-06-06] MEDS: METOCLOPRAMIDE 5 MG/ML 2 ML VIAL IVP SCH ×5 (00:03→23:32)
[2016-06-06] MEDS: metroNIDAZOLE-NS PMX 500 MG in SALINE 1 100ML.BAG IVPB SCH ×4 (00:04→23:33)
[2016-06-06] MEDS: IPRATROPIUM 0.5 MG/2.5 ML NEBU INHALATION SCH ×4 (07:32→19:28)
[2016-06-06] MEDS: FORMOTEROL FUMARATE 20 MCG/2 ML NEBU INHALATION SCH ×2 (07:32→19:28)
[2016-06-06] MEDS: LEVALBUTEROL NEB (CONC) 1.25 MG/0.5 ML AMP INHALATION SCH ×4 (07:32→19:28)
[2016-06-06] MEDS: BUDESONIDE 1 MG/2 ML NEBU INHALATION SCH ×2 (07:32→19:28)
[2016-06-06 07:40] LABS: Basophils % (A) 0 %; CH 32.7; CHCM 32.2; Eosinophils % (A) 0 %; HDW 1.97; HGB 13.6 gm/dL (13.0-17.5); Luc # (Auto) 0.23; Luc % (Auto) 1; Lymphocytes % (A) 6 %; MCHC 32.3 g/dL (31.0-37.0); Macrocytosis Slight; Mean Platelet Volume 7.4; Monocytes # (A) 0.8 k/uL (0-1.0); Monocytes % (A) 5 %; Neutrophils # (A) 13.8 k/uL (1.3-7.7); Neutrophils % (A) 87 %; RBC 4.12 m/uL (4.30-5.90); RDW 14.2 % (11.5-15.5); WBC 15.8 k/uL (3.8-10.6); WBC (Perox) 15.88
[2016-06-06 08:10] LABS: Anion Gap 11 mmol/L; Blood Urea Nitrogen 12 mg/dL (9-20); Calcium 8.6 mg/dL (8.4-10.2); Carbon Dioxide 26 mmol/L (22-30); Chloride 98 mmol/L (98-107); Glucose 101 mg/dL (74-99); Non-African American GFR(MDRD) >60 (>60 ml/min/1.73 sqM); Sodium 135 mmol/L (137-145)
[2016-06-06 08:21] LABS: Potassium 5.4 mmol/L (3.5-5.1)
[2016-06-06] MEDS: PANTOPRAZOLE 40 MG TABLET PO SCH (08:32)
[2016-06-06] MEDS: NICOTINE 21MG/24HR PATCH TRANSDERM SCH (08:32)
[2016-06-06] MEDS: VERAPAMIL 80 MG TAB PO SCH ×3 (08:32→23:33)
[2016-06-06] MEDS: RIVAROXABAN 15 MG TAB PO SCH ×2 (08:32→17:15)
[2016-06-06] MEDS: methylPREDNISolone SOD SUCCI 40 MG/ML 1 ML VIAL IV SCH ×2 (08:32→20:21)
[2016-06-06] MEDS: carBAMazepine 200 MG TAB PO SCH ×2 (08:32→20:21)
[2016-06-06] MEDS: ASPIRIN 81 MG CHEW PO SCH (08:32)
[2016-06-06] MEDS: HYDROcodone/APAP 7.5-325MG 1 EACH TAB PO PRN ×2 (08:32→15:08)
[2016-06-06] MEDS: NADOLOL 20 MG TAB PO SCH ×2 (08:34→20:21)
[2016-06-06] MEDS: cefTRIAXone 2,000 MG in SODIUM CHLORIDE 0.9% 100 ML IVPB SCH (10:21)
--- NOTE | 2016-06-06 10:33 | P.PN ---
Subjective This is a 55-year-old male who was admitted to the hospital with an acute COPD exacerbation, tracheobronchitis and severe wheezing. Currently the patient is hemodynamically stable. The patient was initially on heparin and had been switched to Xeralto. Apparently, the patient had a new complaint that just started hours polyp prior with a left lower quadrant abdominal pain. The patient underwent a CAT scan which showed free air with possible sigmoid colon diverticular perforation. The patient did go for surgery yesterday after he received a dose of K Centra prior to going to surgery to reverse his Xeralto. Upon examination the patient is resting up in bed on 2 L of oxygen via nasal cannula. He states that his breathing is better and under control. Denies any coughing at this time. The patient is using his incentive spirometer and pulling volumes of 1750. The patient complains of only generalized abdominal pain post surgery. The patient has been tolerating his clear liquid diet well. He has been afebrile. Objective - Vital Signs Vital signs: Vital Signs Temp 99.3 F 06/06/16 07:44 Pulse 85 06/06/16 07:49 Resp 18 06/06/16 07:44 BP 140/73 06/06/16 07:44 Pulse Ox 95 06/06/16 07:44 Intake & Output 06/05/16 06/06/16 06/06/16 18:59 06:59 18:59 Intake Total 725 Balance 725 Weight 73.3 kg Intake: IV 725 D5-0.45% NaCl with KCl 625 20Meq/l 1,000 ml @ 125 mls/hr IV .Q8H [facility] Rx#: [id number] metroNIDAZOLE-NS PMX 500 100 mg In Saline 1 100ml.bag @ 100 mls/hr IVPB Q8HR [facility] Rx#:[id number] Other: Voiding Method Toilet Toilet Urinal Urinal # Voids 1 - Exam GENERAL EXAM: Alert, active, comfortable in no apparent distress. HEAD: Normocephalic. EYES: Normal reaction of pupils, equal size. NOSE: Clear with pink turbinates. THROAT: No erythema or exudates. NECK: No masses, no JVD. CHEST: No chest wall deformity. LUNGS: Bilaterally good air entry. Lung sounds noted to be diminished at the bases. CVS: S1 and S2 normal with no audible mumurs, regular rhythm. ABDOMEN: Hypoactive bowel sounds. Patient has a midline surgical incision that is dry and intact, has dressing in place. He is a left lower quadrant ostomy and has already started to produce stool out of it. EXTREMITIES: No edema noted, pedal pulses palpable. SKIN: No rashes CENTRAL NERVOUS SYSTEM: No focal deficits, tone is normal in all 4 extremities. - Labs CBC & Chem 7: 06/06/16 07:05 06/06/16 07:05 Labs: Abnormal Lab Results - Last 24 Hours (Table) 06/06/16 06/06/16 Range/Units 07:05 07:05 WBC 15.8 H (3.8-10.6) k/uL RBC 4.12 L (4.30-5.90) m/uL MCV 102.0 H (80.0-100.0) fL Neutrophils # 13.8 H (1.3-7.7) k/uL Sodium 135 L (137-145) mmol/L Potassium 5.4 H (3.5-5.1) mmol/L Creatinine 0.43 L (0.66-1.25) mg/dL Glucose 101 H (74-99) mg/dL Microbiology - Last 24 Hours (Table) 06/03/16 17:10 Blood Culture - Preliminary Blood No Growth after 48 hours 06/03/16 16:49 Blood Culture - Preliminary Blood No Growth after 48 hours Assessment and Plan Plan: Assessment Chronic obstructive pulmonary disease with acute exacerbation Current Pulmonary embolism, with a history of previous bilateral pulmonary embolism Leukocytosis with elevated liver enzymes Perforated diverticulum Pleuritic chest pain related to pulmonary embolism Hypertension Current active nicotine user Acute on chronic hypoxic respiratory failure Plan Medications have been reviewed and will be continued. The patient chronically uses home O2 of 3 L via nasal cannula at all times.. He appears in no distress and his pulse ox has been stable per nursing staff. Continue with nebulizer treatments and IV steroids. Smoking cessation education provided. Patient to advance diet based on surgical recommendations. The patient should be started back on Xeralto as ordered. We will continue to monitor labs and adjust treatment as necessary. I performed an examination of the patient and discussed their management with the nurse practitioner. I have reviewed the nurse practitioner's note and agree with the documented findings and plan of care.
--- NOTE | 2016-06-06 13:20 | P.PN ---
Subjective 55-year-old male being seen this morning. Is currently resting in bed. Patient states he has been up ambulating in the hallway. Patient states not passing gas no stool out of the ostomy is urinating no difficulty the ostomy educator has been ordered to see patient to start the ostomy education postop on June 03 emergent sigmoid colectomy with end colostomy for possible sigmoid colon diverticular perforation as evident on a CAT scan of the abdomen and pelvis showing free air Objective - Vital Signs Vital signs: Vital Signs Temp 99.3 F 06/06/16 07:44 Pulse 90 06/06/16 11:04 Resp 18 06/06/16 07:44 BP 140/73 06/06/16 07:44 Pulse Ox 95 06/06/16 07:44 Intake & Output 06/05/16 06/06/16 06/06/16 18:59 06:59 18:59 Intake Total 725 Balance 725 Weight 73.3 kg Intake: IV 725 D5-0.45% NaCl with KCl 625 20Meq/l 1,000 ml @ 125 mls/hr IV .Q8H [facility] Rx#: [id number] metroNIDAZOLE-NS PMX 500 100 mg In Saline 1 100ml.bag @ 100 mls/hr IVPB Q8HR [facility] Rx#:[id number] Other: Voiding Method Toilet Toilet Urinal Urinal # Voids 1 - Exam Physical exam 55-year-old gentleman sitting up in bed. States pain medication effective for pain control States has been up ambulating in the villalobos pleasant cooperative oriented 3 Lungs essentially clear on room air sats are 94% Heart S1-S2 audible and regular Abdomen ostomy left lower quadrant no stool noted in the ostomy bag dressings to the surgical site dry bowel tones present not distended nontender Extremities Venodyne's on to the bilateral lower extremities with no evidence of edema - Labs CBC & Chem 7: 06/06/16 07:05 06/06/16 07:05 Labs: Abnormal Lab Results - Last 24 Hours (Table) 06/06/16 06/06/16 Range/Units 07:05 07:05 WBC 15.8 H (3.8-10.6) k/uL RBC 4.12 L (4.30-5.90) m/uL MCV 102.0 H (80.0-100.0) fL Neutrophils # 13.8 H (1.3-7.7) k/uL Sodium 135 L (137-145) mmol/L Potassium 5.4 H (3.5-5.1) mmol/L Creatinine 0.43 L (0.66-1.25) mg/dL Glucose 101 H (74-99) mg/dL Microbiology - Last 24 Hours (Table) 06/03/16 17:10 Blood Culture - Preliminary Blood No Growth after 48 hours 06/03/16 16:49 Blood Culture - Preliminary Blood No Growth after 48 hours Assessment and Plan Plan: Impression : Present on admission shortness of breath multifactorial suspect due to left lower lobe pulmonary emboli with decompensated congestive heart failure systolic dysfunction with acute exacerbation COPD Subtherapeutic on INR 1.1 on admission Chronic hypoxic respiratory failure supplemental home O2 Chronic nicotine dependency Present on admission pleuritic chest pain suspect due to pulmonary emboli Acute exacerbation of COPD Acute on chronic hypoxic respiratory failure essential hypertension Echocardiogram done on May 29 show left ventricular systolic function mildly impaired EF between 45 and 50% Present on admission sinus tachycardic likely reactive Chronic debility due to comorbidities CT CAT scan of the chest shows emphysema Abdominal pain suspect due to perforated diverticulitis Status post June 03 sigmoid colectomy with end colostomy for perforated diverticulitis Plan postop surgical care per surgical service Pain control Restart when appropriate Xarelto 15 mg twice a day for 3 weeks then 20 mg daily for treatment of the pulmonary emboli surgery indicates okay 2 resume to Xarelto Resume home meds as appropriate Home care at the time of discharge to reinforce ostomy teaching Ostomy educator start ostomy education today Diet to be advanced per surgical service DVT and GI prophylaxis The above dictated assessment and findings were discussed with dr james Gill and the plan of care have been dictated as directed. Anastasia Garcia nurse practitioner acting as a scribe for dr ramirez
--- NOTE | 2016-06-06 13:41 | P.PN ---
Subjective Principal diagnosis: Perforated diverticulitis The patient feels better. He is I she stooling and his colostomy. He is hungry and requesting to have his diet increased. Objective - Vital Signs Vital signs: Vital Signs Temp 99.3 F 06/06/16 07:44 Pulse 90 06/06/16 11:04 Resp 18 06/06/16 07:44 BP 140/73 06/06/16 07:44 Pulse Ox 95 06/06/16 07:44 Intake & Output 06/05/16 06/06/16 06/06/16 18:59 06:59 18:59 Intake Total 725 Balance 725 Weight 73.3 kg Intake: IV 725 D5-0.45% NaCl with KCl 625 20Meq/l 1,000 ml @ 125 mls/hr IV .Q8H [facility] Rx#: [id number] metroNIDAZOLE-NS PMX 500 100 mg In Saline 1 100ml.bag @ 100 mls/hr IVPB Q8HR [facility] Rx#:[id number] Other: Voiding Method Toilet Toilet Urinal Urinal # Voids 1 - Constitutional General appearance: Present: average body habitus - Gastrointestinal Gastrointestinal Comment(s): Abdomen soft. There is no sign of infection the incision. The colostomy is functioning slightly dusky. - Labs CBC & Chem 7: 06/06/16 07:05 06/06/16 07:05 Labs: Abnormal Lab Results - Last 24 Hours (Table) 06/06/16 06/06/16 Range/Units 07:05 07:05 WBC 15.8 H (3.8-10.6) k/uL RBC 4.12 L (4.30-5.90) m/uL MCV 102.0 H (80.0-100.0) fL Neutrophils # 13.8 H (1.3-7.7) k/uL Sodium 135 L (137-145) mmol/L Potassium 5.4 H (3.5-5.1) mmol/L Creatinine 0.43 L (0.66-1.25) mg/dL Glucose 101 H (74-99) mg/dL Microbiology - Last 24 Hours (Table) 06/03/16 17:10 Blood Culture - Preliminary Blood No Growth after 48 hours 06/03/16 16:49 Blood Culture - Preliminary Blood No Growth after 48 hours Assessment and Plan Plan: Status post heart procedure for perforated diverticulitis. Patient will have his Telfa nadja removed from his incision today. We will increase his diet. Dr. Payne will be covering me over the weekend. He still has elevated white count and we'll remain on IV antibiotics.
[2016-06-06] MEDS: D5-0.45% NACL WITH KCL 20MEQ/L 1,000 ML IV SCH (15:32)
--- NOTE | 2016-06-06 15:47 | PN ---
DATE OF SERVICE: 06/06/2016 REASON FOR FOLLOWUP: Secondary peritonitis from perforated diverticulitis. INTERVAL HISTORY: The patient is afebrile. His abdominal pain is currently controlled. The patient denies having any nausea, vomiting. Did have an output in his colostomy bag. Denies having any chest pain or shortness of breath. Occasional cough. On examination, blood pressure is 140/73 with a pulse of 90, temperature 99.3. He is 95% on room air. General description is a middle-aged male lying in bed in no distress. RESPIRATORY SYSTEM: Unlabored breathing. Clear to auscultation anteriorly. HEART: S1, S2. Regular rate and rhythm. ABDOMEN: Soft. Incision is clean. LABS: Hemoglobin is 13.6, white count 15.8 with a BUN of 12, creatinine 0.43. Blood culture so far negative. DIAGNOSTIC IMPRESSION AND PLAN: Patient with secondary peritonitis from perforated sigmoid diverticulitis, status post sigmoid colectomy and diverting colostomy. Patient at this time will continue on Rocephin and Flagyl. Once his oral intake is improved, will switch him to oral antibiotics. Will continue to monitor his white count closely. Continue supportive care.
[2016-06-06] MEDS: SODIUM CHLORIDE 0.9% 1,000 ML IV SCH (17:15)
[2016-06-06] MEDS: HYDROmorphone 1 MG/ML 1 ML SYRINGE IVP PRN (19:26)
[2016-06-06] MEDS: LATANOPROST 0.005% OPHTH DROPS 2.5 ML BTL BOTH EYES SCH (20:21)
[2016-06-07] MEDS: D5-0.45% NACL WITH KCL 20MEQ/L 1,000 ML IV SCH ×4 (04:54→23:23)
[2016-06-07] MEDS: METOCLOPRAMIDE 5 MG/ML 2 ML VIAL IVP SCH ×4 (06:00→23:18)
[2016-06-07] MEDS: FORMOTEROL FUMARATE 20 MCG/2 ML NEBU INHALATION SCH ×2 (07:12→19:27)
[2016-06-07] MEDS: BUDESONIDE 1 MG/2 ML NEBU INHALATION SCH ×2 (07:12→19:27)
[2016-06-07] MEDS: IPRATROPIUM 0.5 MG/2.5 ML NEBU INHALATION SCH ×4 (07:13→19:28)
[2016-06-07] MEDS: LEVALBUTEROL NEB (CONC) 1.25 MG/0.5 ML AMP INHALATION SCH ×4 (07:13→19:27)
[2016-06-07] MEDS: HYDROcodone/APAP 7.5-325MG 1 EACH TAB PO PRN ×3 (07:30→21:08)
[2016-06-07] MEDS: PANTOPRAZOLE 40 MG TABLET PO SCH (07:34)
[2016-06-07] MEDS: RIVAROXABAN 15 MG TAB PO SCH ×2 (07:34→18:05)
[2016-06-07] MEDS: NICOTINE 21MG/24HR PATCH TRANSDERM SCH (07:34)
[2016-06-07] MEDS: methylPREDNISolone SOD SUCCI 40 MG/ML 1 ML VIAL IV SCH (07:34)
[2016-06-07] MEDS: metroNIDAZOLE-NS PMX 500 MG in SALINE 1 100ML.BAG IVPB SCH (07:35)
[2016-06-07] MEDS: ASPIRIN 81 MG CHEW PO SCH (07:35)
[2016-06-07] MEDS: carBAMazepine 200 MG TAB PO SCH ×2 (07:36→21:09)
[2016-06-07] MEDS: NADOLOL 20 MG TAB PO SCH ×2 (07:36→21:12)
[2016-06-07] MEDS: VERAPAMIL 80 MG TAB PO SCH ×3 (07:36→21:09)
[2016-06-07 07:46] LABS: Basophils % (A) 0 %; CH 32.7; CHCM 32.2; Eosinophils % (A) 0 %; HCT 40.5 % (39.0-53.0); HDW 1.95; HGB 12.8 gm/dL (13.0-17.5); Luc # (Auto) 0.27; Luc % (Auto) 2; Lymphocytes % (A) 8 %; MCH 32.3 pg (25.0-35.0); MCHC 31.7 g/dL (31.0-37.0); MCV 101.8 fL (80.0-100.0); Macrocytosis Slight; Mean Platelet Volume 7.5; Monocytes # (A) 0.6 k/uL (0-1.0); Monocytes % (A) 5 %; Neutrophils # (A) 10.5 k/uL (1.3-7.7); Neutrophils % (A) 85 %; RBC 3.98 m/uL (4.30-5.90); RDW 14.3 % (11.5-15.5); WBC 12.3 k/uL (3.8-10.6); WBC (Perox) 13.09
[2016-06-07 08:10] LABS: ALT 49 U/L (21-72); AST 18 U/L (17-59); Alkaline Phosphatase 76 U/L (38-126); Anion Gap 11 mmol/L; Blood Urea Nitrogen 15 mg/dL (9-20); Calcium 8.3 mg/dL (8.4-10.2); Carbon Dioxide 28 mmol/L (22-30); Chloride 99 mmol/L (98-107); Glucose 100 mg/dL (74-99); Non-African American GFR(MDRD) >60 (>60 ml/min/1.73 sqM); Potassium 4.6 mmol/L (3.5-5.1); Sodium 138 mmol/L (137-145); Total Bilirubin 0.5 mg/dL (0.2-1.3); Total Protein 5.3 g/dL (6.3-8.2)
[2016-06-07] MEDS: cefTRIAXone 2,000 MG in SODIUM CHLORIDE 0.9% 100 ML IVPB SCH (10:13)
--- NOTE | 2016-06-07 11:23 | P.PN ---
Subjective Principal diagnosis: Diverticulitis The patient is status post Youssef's procedure for perforated diverticulitis. He's tolerating a diet. The ostomy is beginning to put out flatus but no significant stool. He had one ostomy education session yesterday and another one is scheduled tomorrow. Objective - Vital Signs Vital signs: Vital Signs Temp 97.9 F 06/07/16 07:44 Pulse 88 06/07/16 11:12 Resp 20 06/07/16 07:44 BP 149/97 06/07/16 07:44 Pulse Ox 97 06/07/16 07:44 Intake & Output 06/06/16 06/07/16 06/07/16 18:59 06:59 18:59 Other: Voiding Method Toilet Toilet Urinal Urinal - Constitutional General appearance: Present: cooperative, no acute distress - Gastrointestinal Gastrointestinal Comment(s): Ostomy appliance left lower quadrant the mucosa is dusky but still appears viable. General gastrointestinal: Present: normal bowel sounds, soft - Labs CBC & Chem 7: 06/07/16 06:39 06/07/16 06:39 Labs: Abnormal Lab Results - Last 24 Hours (Table) 06/07/16 06/07/16 Range/Units 06:39 06:39 WBC 12.3 H (3.8-10.6) k/uL RBC 3.98 L (4.30-5.90) m/uL Hgb 12.8 L (13.0-17.5) gm/dL MCV 101.8 H (80.0-100.0) fL Neutrophils # 10.5 H (1.3-7.7) k/uL Creatinine 0.54 L (0.66-1.25) mg/dL Glucose 100 H (74-99) mg/dL Calcium 8.3 L (8.4-10.2) mg/dL Total Protein 5.3 L (6.3-8.2) g/dL Albumin 2.8 L (3.5-5.0) g/dL Microbiology - Last 24 Hours (Table) 06/03/16 17:10 Blood Culture - Preliminary Blood No Growth after 72 hours 06/03/16 16:49 Blood Culture - Preliminary Blood No Growth after 72 hours Assessment and Plan (1) Diverticulitis of colon with perforation Status: Acute Plan: Continue IV antibiotics. Continue DVT and ulcer prophylaxis. Ostomy education. He's progressing slowly.
--- NOTE | 2016-06-07 14:03 | PN ---
SUBJECTIVE: A 55-year-old white male who was admitted with acute pulmonary embolism and sigmoid perforation status post colostomy placement. He has end-stage COPD also. He wears 3 liters of oxygen at home. He remains on Xarelto and DuoNeb updrafts. He is getting teaching for his colostomy this weekend. He will go home on Thursday or Thursday. Temperature 97.9, pulse rate is 80s and 90s, respiratory rate 18 to 20, blood pressure 149/97. CARDIOVASCULAR: S1 and S2. LUNGS: Show wheezes x4. Decreased breath sounds x4. ABDOMEN: Colostomy, wound looks intact. EXTREMITIES: No cyanosis, clubbing, edema. ASSESSMENT: 1. Pulmonary embolism, acute right lower lobe. 2. Acute sigmoid perforation with colostomy placement. 3. End-stage chronic obstructive pulmonary disease with exacerbation. 4. Chronic hypoxemic respiratory failure. 5. Nicotine addiction. 6. Acute on chronic anemia. 7. Leukocytosis, improving. 8. Moderate protein calorie malnutrition. Prognosis is guarded. Continue on Xarelto. Wound dressing changes and continue him on his Tegretol for assistance with seizures. He has updraft treatments. Continue on IV Solu-Medrol and try to wean him down to oral prednisone. Send him home on Thursday.
[2016-06-07] MEDS: SODIUM CHLORIDE 0.9% 1,000 ML IV SCH (16:16)
[2016-06-07] MEDS: metroNIDAZOLE 500 MG TAB PO SCH ×2 (16:27→23:18)
[2016-06-07] MEDS: LATANOPROST 0.005% OPHTH DROPS 2.5 ML BTL BOTH EYES SCH (21:09)
[2016-06-08] MEDS: METOCLOPRAMIDE 5 MG/ML 2 ML VIAL IVP SCH ×4 (05:21→23:25)
[2016-06-08] MEDS: D5-0.45% NACL WITH KCL 20MEQ/L 1,000 ML IV SCH ×3 (07:03→23:24)
[2016-06-08] MEDS: FORMOTEROL FUMARATE 20 MCG/2 ML NEBU INHALATION SCH ×2 (07:32→19:34)
[2016-06-08] MEDS: BUDESONIDE 1 MG/2 ML NEBU INHALATION SCH ×2 (07:32→19:34)
[2016-06-08] MEDS: IPRATROPIUM-ALBUTEROL 3 ML NEB INHALATION SCH ×4 (07:32→19:34)
[2016-06-08 07:34] LABS: Basophils # (A) 0.1 k/uL (0-0.2); Basophils % (A) 0 %; CH 32.6; CHCM 32.2; Eosinophils # (A) 0.1 k/uL (0-0.7); Eosinophils % (A) 1 %; HCT 42.7 % (39.0-53.0); HDW 1.98; HGB 13.5 gm/dL (13.0-17.5); Luc # (Auto) 0.26; Luc % (Auto) 1; Lymphocytes # (A) 1.5 k/uL (1.0-4.8); Lymphocytes % (A) 8 %; MCH 32.3 pg (25.0-35.0); MCHC 31.7 g/dL (31.0-37.0); MCV 101.7 fL (80.0-100.0); Macrocytosis Slight; Mean Platelet Volume 7.2; Monocytes % (A) 5 %; Neutrophils # (A) 17.1 k/uL (1.3-7.7); Neutrophils % (A) 85 %; RBC 4.19 m/uL (4.30-5.90); RDW 14.5 % (11.5-15.5); WBC 20.1 k/uL (3.8-10.6)
[2016-06-08 07:40] LABS: ALT 44 U/L (21-72); AST 16 U/L (17-59); Alkaline Phosphatase 66 U/L (38-126); Anion Gap 9 mmol/L; Blood Urea Nitrogen 16 mg/dL (9-20); Calcium 8.7 mg/dL (8.4-10.2); Carbon Dioxide 28 mmol/L (22-30); Chloride 101 mmol/L (98-107); Glucose 101 mg/dL (74-99); Non-African American GFR(MDRD) >60 (>60 ml/min/1.73 sqM); Potassium 4.6 mmol/L (3.5-5.1); Sodium 138 mmol/L (137-145); Total Bilirubin 0.5 mg/dL (0.2-1.3); Total Protein 5.3 g/dL (6.3-8.2)
[2016-06-08] MEDS: HYDROcodone/APAP 7.5-325MG 1 EACH TAB PO PRN ×3 (08:09→20:35)
[2016-06-08] MEDS: VERAPAMIL 80 MG TAB PO SCH ×3 (08:12→21:45)
[2016-06-08] MEDS: NICOTINE 21MG/24HR PATCH TRANSDERM SCH (08:12)
[2016-06-08] MEDS: RIVAROXABAN 15 MG TAB PO SCH ×2 (08:14→18:20)
[2016-06-08] MEDS: PANTOPRAZOLE 40 MG TABLET PO SCH (08:14)
[2016-06-08] MEDS: ASPIRIN 81 MG CHEW PO SCH (08:15)
[2016-06-08] MEDS: metroNIDAZOLE 500 MG TAB PO SCH ×3 (08:15→23:25)
[2016-06-08] MEDS: carBAMazepine 200 MG TAB PO SCH ×2 (08:15→21:44)
[2016-06-08] MEDS: cefTRIAXone 2,000 MG in SODIUM CHLORIDE 0.9% 100 ML IVPB SCH (08:16)
[2016-06-08] MEDS: methylPREDNISolone SOD SUCCI 40 MG/ML 1 ML VIAL IV SCH (08:17)
[2016-06-08] MEDS: NADOLOL 20 MG TAB PO SCH ×2 (08:18→21:44)
[2016-06-08] MEDS ORDERED: RX INFO: IV CONTRAST WAS GIVEN 1 EACH MISC MISCELLANE PRN (10:26)
[2016-06-08] MEDS: IOHEXOL 350 MG/ML 25 ML BOTTLE (ORAL USE) PO PRN ×2 (11:30→12:34)
--- NOTE | 2016-06-08 12:14 | PN ---
Jamil Tomlinson is a 55-year-old who came in with acute pulmonary embolism. Also has a perforated bowel. The patient is postop day #3 for colostomy. Clinically doing well. Patient has been tolerating p.o. well. Some aches and pains are present which are manageable. Respiratory status is significantly improved. He is able to ambulate. Blood pressure is 117/70, respiratory rate 20, pulse 96, temperature 98, saturation of 95% on 2 liters. HEENT: Otherwise unremarkable. NECK: Supple. LUNGS: Good air entry bilaterally. HEART: Regular rate and rhythm. S1 and S2 audible. ABDOMEN: Soft. Hypoactive bowel sounds. Colostomy bag contained brownish feculent material. EXTREMITIES: +1 peripheral pulses. NEUROLOGICAL EXAMINATION: Otherwise, awake and alert. No focal neurological deficit. LABS: Reviewed. White cell count 12,000, hemoglobin 12, hematocrit 40, platelet count 371,000. Sodium 130, potassium 4.6, BUN 15 and creatinine 0.5. Glucoses 100. Culture results and reports are reviewed. Blood cultures no growth so far. IMPRESSION: 1. Acute pulmonary embolism. 2. Perforated bowel. 3. History of chronic obstructive pulmonary disease with acute exacerbation. Plan and recommendation is as above. Continue supportive care. Follow clinical course closely. Continue antibiotics, breathing treatments. Will lower down the Solu-Medrol to once daily. Patient is back on Zaroxolyn now tolerating well.
--- NOTE | 2016-06-08 13:12 | XR ---
EXAMINATION TYPE: XR chest 2V DATE OF EXAM: 06/08/2016 1:04 PM COMPARISON: CXR and CT chest from 05-29-2016. HISTORY: Pneumonia progress study. TECHNIQUE: Frontal and lateral views of the chest are obtained. FINDINGS: There is no focal air space opacity, pleural effusion, or pneumothorax seen. The cardiac silhouette size is within normal limits. The osseous structures are intact. IMPRESSION: COPD without acute pulmonary process.
--- NOTE | 2016-06-08 15:21 | CT ---
EXAMINATION TYPE: CT abdomen pelvis w con DATE OF EXAM: 06/08/2016 1:40 PM COMPARISON: CT abdomen pelvis from 5 days ago HISTORY: Abdominal pain and leukocytosis per order. CT DLP: 655.20 mGycm, Automated Exposure Control for Dose Reduction was Utilized. CONTRAST: CT scan of the abdomen and pelvis is performed with oral and with IV Contrast, patient injected with 100 ml mL of Omnipaque 300. FINDINGS: LUNG BASES: There is new focal consolidation or atelectasis posteriorly in the right lung base. Canno t exclude new acute infectious process at this level. LIVER/GB: No significant abnormality is appreciated. PANCREAS: No significant abnormality is seen. SPLEEN: No significant abnormality is seen. ADRENALS: No significant abnormality is seen. KIDNEYS: Bladder is poorly distended and thus suboptimally evaluated. There is mild abnormal wall thi ckening with nondependent air. A cystitis cannot be excluded. Correlate for recent Carter catheterizat ion otherwise other etiologies for air need to be considered. Most likely patient had Carter at time o f interval surgery. BOWEL: The oral contrast reaches level of new left lower quadrant colostomy. There is no suspicious s mall or large bowel dilatation. There has been partial distal colectomy. There is remnant sigmoid rec opal pouch. There is new moderate ill-defined fluid and fat stranding with extraluminal air in the left midabdome n seen best on axial image 52 and coronal image 29. Finding consistent with infectious process. There are a few forming thin-walled fluid collection or developing abscesses noted. For reference is 2.9 x 0.8 cm lesion on coronal image 28. Leak is not excluded. PROSTATE/SEMINAL VESICLES: Central zone calcifications are seen in normal size prostate gland. LYMPH NODES: No greater than 1cm abdominal or pelvic lymph nodes are appreciated. OSSEOUS STRUCTURES: Disc space narrowing with vacuum disc phenomenon at the lumbosacral junction is redemonstrated. OTHER: There are small sized fat-containing inguinal hernia is redemonstrated bilaterally. There is a dditional small left groin or femoral hernia containing fluid on current study axial image 85. There is moderate to severe atherosclerotic change of the abdominal aorta and pelvic branch vessels r edemonstrated. Interval marked improvement in pneumoperitoneum. New overlying vertical skin marlen are noted consis tent with interval surgery. IMPRESSION: 1. Interval surgery with partial distal colectomy and left lower quadrant colostomy. There is new inf lammatory change in the left midabdomen or small bowel loops and mid segment of the left colon, with extraluminal air and thin-walled small fluid collections system with developing abscesses. Active tima k at this level is not excluded. 2. New focal consolidation posterior right lung base in which acute infiltrate cannot be excluded. A Yellow message has been communicated to Amanda Payne via the [employer] Result system on 06/08/2016 3:19 PM, Message ID [id number].
[2016-06-08] MEDS: SODIUM CHLORIDE 0.9% 1,000 ML IV SCH (16:48)
--- NOTE | 2016-06-08 17:04 | PN ---
DATE OF SERVICE: 06/07/2016 REASON FOR FOLLOWUP: Secondary peritonitis from ruptured diverticulitis. INTERVAL HISTORY: The patient is afebrile. He has been breathing comfortably. He has been started on a diet which he has been tolerating so far. The patient denies having any chest pain, shortness of breath or cough. On examination, blood pressure is 121/75, pulse 93, temperature 97.9. GENERAL DESCRIPTION: A middle-age male lying in bed in no distress. RESPIRATORY SYSTEM: Unlabored breathing. Clear to auscultation anteriorly. HEART: S1, S2. Regular rate and rhythm. ABDOMEN: Soft. No tenderness. EXTREMITIES: No edema of feet. LABS: Hemoglobin 12.8 with, white count 10.3, BUN of 15, creatinine 0.54. DIAGNOSTIC IMPRESSION AND PLAN: Patient with secondery peritonitis from ruptured diverticulitis, PLAN: At this time, continue the patient on Rocephin and Flagyl. Continue the patient on antibiotics. If the patient continues to improve hopefully we can start treating with oral antibiotics on Thursday. Continue supportive care. VICKY
--- NOTE | 2016-06-08 17:56 | PN ---
SUBJECTIVE: A 55-year-old white male admitted with pulmonary embolism, sigmoid diverticular rupture with colostomy placement and his white count jumped from 12 to 22,000 despite treatment with Flagyl and Rocephin antibiotics. Awaiting CT of the abdomen report today that was ordered by Surgeon. Will also do a chest x-ray and urine culture on him today. Temperature 97.8, pulse 88, respiratory rate 20, O2 is 97% on room air. CARDIOVASCULAR: S1, S2. LUNGS: Transmitted upper airway sounds. GI: Soft. HEMATOLOGIC: Negative Homans. GI: He has a colostomy bag intact. ASSESSMENT: Colostomy. Sigmoid diverticular rupture, rule out intra-abdominal abscess with CT scan of the abdomen. Check urine culture. Continue on Xarelto for pulmonary embolism. Nicotine patches for smoking cessation. Continue on albuterol and Atrovent updrafts.
--- NOTE | 2016-06-08 18:22 | PN ---
DATE OF SERVICE: 06/08/2016 Jamil is seen on rounds. He is status post Feliciano procedure for perforated diverticulitis. He said he had a bad night. He is feeling well this morning. He is having some nausea, although no vomiting. He is also having some increase in pain in his abdomen. Denies cough or increased shortness of breath. Denies dysuria. PHYSICAL EXAM: He has been afebrile. Pulse was 97, respirations 20, blood pressure is 125/91. His heart is regular rate and rhythm. Lungs are a little diminished bilaterally. No wheezes. Abdomen is soft. Hypoactive bowel sounds. The incision has a little bloody drainage along the midportion and no cellulitis. He has some diffuse tenderness which appears to be worse than yesterday. There is some brown stool in the colostomy. LABORATORY DATA: His white count has elevated to 20,100, hemoglobin 13.5. His sodium and potassium are within normal range. ASSESSMENT: 1. Status post sigmoid resection for perforated diverticulitis. 2. Leukocytosis. 3. Nausea. PLAN: I recommended that check a CT of his abdomen make sure he is not developing abscess or something of that nature with increased pain, nausea and white count. Check UA and chest x-ray with further recommendations to follow.
--- NOTE | 2016-06-08 20:25 | P.PN ---
Progress Note - Text CT reviewed. Developing abscess. Will check with radiology to see if this is amenable to percutaneous drainage, otherwise will need to go to OR for washout and drainage.
[2016-06-08] MEDS: LATANOPROST 0.005% OPHTH DROPS 2.5 ML BTL BOTH EYES SCH (21:44)
[2016-06-08] MEDS: DEXTROSE 5%-0.45% NACL 1,000 ML IV SCH (21:45)
[2016-06-09] MEDS: METOCLOPRAMIDE 5 MG/ML 2 ML VIAL IVP SCH ×3 (05:00→18:48)
[2016-06-09] MEDS: HYDROcodone/APAP 7.5-325MG 1 EACH TAB PO PRN ×3 (05:04→18:48)
--- NOTE | 2016-06-09 07:14 | XR ---
EXAMINATION TYPE: XR chest 2V DATE OF EXAM: 06/09/2016 6:43 AM COMPARISON: Chest x-ray and CT abdomen and pelvis from yesterday HISTORY: COPD with leukocytosis TECHNIQUE: Frontal and lateral views of the chest are obtained. FINDINGS: There is no patchy right basilar atelectasis and/or infiltrate seen best on lateral view c onfirmed on recent CT. No new focal airspace opacity, pleural effusion, or pneumothorax is evident. U nderlying emphysematous change is felt present. The cardiac silhouette size is within normal limits. The osseous structures are intact. IMPRESSION: Persistent patchy right basilar atelectasis and/or infiltrate, no new infiltrate is seen .
[2016-06-09] MEDS: BUDESONIDE 1 MG/2 ML NEBU INHALATION SCH ×2 (07:17→19:38)
[2016-06-09] MEDS: IPRATROPIUM-ALBUTEROL 3 ML NEB INHALATION SCH ×4 (07:17→19:38)
[2016-06-09] MEDS: FORMOTEROL FUMARATE 20 MCG/2 ML NEBU INHALATION SCH ×2 (07:17→19:38)
--- NOTE | 2016-06-09 08:19 | P.PN ---
Subjective 55-year-old being seen this morning on rounds. Patient currently is nothing by mouth with the plan for interventional radiology to evaluate for possible developing abscess for possible percutaneous drainage of the developing abscess on the abdomen was noted on a CAT scan of the abdomen pelvis on the labs currently this morning are pending. The white count yesterday was 20.1. Patient has been afebrile patient currently is being followed by infectious disease and surgical service recommendations reviewed noted and appreciated. postop on June 03 emergent sigmoid colectomy with end colostomy for possible sigmoid colon diverticular perforation as evident on a CAT scan of the abdomen and pelvis showing free air Ostomy teaching has been initiated abdomen diffuse tenderness scant amount of stool noted in the ostomy bag bowel tones present Objective - Vital Signs Vital signs: Vital Signs Temp 98.0 F 06/09/16 07:55 Pulse 85 06/09/16 07:55 Resp 16 06/09/16 07:55 BP 108/69 06/09/16 07:55 Pulse Ox 91 L 06/09/16 07:55 Intake & Output 06/08/16 06/09/16 06/09/16 18:59 06:59 18:59 Output Total 200 Balance -200 Output: Stool 200 Other: Voiding Method Toilet Toilet Urinal Urinal - Exam Physical exam 55-year-old gentleman sitting up in bed. Sitting up in bed currently nothing by mouth scheduled for possible interventional percutaneous drainage of the abdominal abscess today awaiting surgical service and put Lungs essentially clear on room air sats are 94% Heart S1-S2 audible and regular denying chest pain Abdomen ostomy left lower quadrant small amount stool noted in the ostomy bag dressings to the surgical site dry bowel tones present not distended nontender Extremities Venodyne's on to the bilateral lower extremities with no evidence of edema - Labs CBC & Chem 7: 06/08/16 07:11 06/08/16 07:11 Labs: Microbiology - Last 24 Hours (Table) 06/03/16 17:10 Blood Culture - Preliminary Blood No Growth after 120 hours 06/03/16 16:49 Blood Culture - Preliminary Blood No Growth after 120 hours Assessment and Plan Plan: Impression : Present on admission shortness of breath multifactorial suspect due to left lower lobe pulmonary emboli with decompensated congestive heart failure systolic dysfunction with acute exacerbation COPD Subtherapeutic on INR 1.1 on admission Chronic hypoxic respiratory failure supplemental home O2 Chronic nicotine dependency Present on admission pleuritic chest pain suspect due to pulmonary emboli Acute exacerbation of COPD Acute on chronic hypoxic respiratory failure essential hypertension Echocardiogram done on May 29 show left ventricular systolic function mildly impaired EF between 45 and 50% Present on admission sinus tachycardic likely reactive Chronic debility due to comorbidities CT CAT scan of the chest shows emphysema Abdominal pain suspect due to perforated diverticulitis Status post June 03 sigmoid colectomy with end colostomy for perforated diverticulitis New-onset postop leukocytosis likely due to developing abdominal abscess as evident on a CAT scan of the abdomen pelvis Plan Follow-up on pending labs Await interventional radiology's input possible percutaneous drainage of the abscess to be determined postop surgical care per surgical service Pain control Restart when appropriate Xarelto 15 mg twice a day for 3 weeks then 20 mg daily for treatment of the pulmonary emboli surgery indicates okay 2 resume to Xarelto Resume home meds as appropriate Home care at the time of discharge to reinforce ostomy teaching Ostomy educator start ostomy education today DVT and GI prophylaxis The above dictated assessment and findings were discussed with dr ramirez Impression and the plan of care have been dictated as directed. Anastasia Garcia nurse practitioner acting as a scribe for dr ramirez Time with Patient: Greater than 30
--- NOTE | 2016-06-09 09:21 | P.PN ---
Progress Note - Text I spoke with Dr Fontaine. He can aspirate fluid, but doesn't think he can put a catheter in. Will have him do that for culture. Will repeat CT scan tues or wed if the patient does well. If he gets worse, will need to go to the OR for washout and TORIBIO placement.
--- NOTE | 2016-06-09 09:36 | PN ---
Mr. Tomlinson who is a 55-year-old, has acute pulmonary embolism as well as perforated transverse colon/sigmoid colon related to diverticulosis. Patient has a colostomy. Clinically patient is recovering nicely. He is back on anticoagulation. He is tolerating solid food fairly well. Respiratory status has improved. Denies any cough. Still has mild shortness of breath, but severity has improved significantly. His blood pressure is 125/91, respiratory rate 20, pulse 97, temperature 98, saturation on 95% to 96% on 2 liters oxygen. HEENT EXAMINATION: Otherwise unremarkable. NECK: Supple. LUNGS: Good air entry bilaterally. HEART: Regular rate and rhythm. S1 and S2 audible. ABDOMEN: Soft. NEUROLOGICAL EXAMINATION: Otherwise, awake and alert. Chest x-ray - COPD-like changes, some postoperative ( ). IMPRESSION: 1. Acute chronic obstructive pulmonary disease exacerbation. 2. Acute pulmonary embolism. 3. Perforated bowel. 4. Ileus-like process. PLAN AND RECOMMENDATIONS: As above. Continue supportive care. Continue antibiotics, breathing treatments. Will lower down the steroids as well. Patient has been on Solu-Medrol once daily. Will discontinue that, monitor patient off of the steroids in the next 24 hours. Will follow up on the CT scan of the abdomen and pelvis as well.
[2016-06-09 09:52] LABS: ALT 38 U/L (21-72); AST 18 U/L (17-59); Alkaline Phosphatase 56 U/L (38-126); Anion Gap 7 mmol/L; Blood Urea Nitrogen 15 mg/dL (9-20); Calcium 7.9 mg/dL (8.4-10.2); Carbon Dioxide 30 mmol/L (22-30); Chloride 97 mmol/L (98-107); Glucose 102 mg/dL (74-99); Non-African American GFR(MDRD) >60 (>60 ml/min/1.73 sqM); Sodium 134 mmol/L (137-145); Total Bilirubin 0.6 mg/dL (0.2-1.3); Total Protein 5.1 g/dL (6.3-8.2)
[2016-06-09 10:01] LABS: Basophils % (A) 0 %; CH 32.4; CHCM 31.4; Eosinophils # (A) 0.1 k/uL (0-0.7); Eosinophils % (A) 1 %; HCT 39.4 % (39.0-53.0); HDW 1.91; HGB 12.4 gm/dL (13.0-17.5); Luc # (Auto) 0.22; Luc % (Auto) 1; Lymphocytes # (A) 1.2 k/uL (1.0-4.8); Lymphocytes % (A) 8 %; MCH 32.5 pg (25.0-35.0); MCHC 31.3 g/dL (31.0-37.0); MCV 103.6 fL (80.0-100.0); Macrocytosis Slight; Mean Platelet Volume 7.3; Monocytes % (A) 6 %; Neutrophils # (A) 13.1 k/uL (1.3-7.7); Neutrophils % (A) 84 %; RBC 3.81 m/uL (4.30-5.90); RDW 14.3 % (11.5-15.5); WBC 15.6 k/uL (3.8-10.6)
[2016-06-09] MEDS: RIVAROXABAN 15 MG TAB PO SCH (10:04)
[2016-06-09] MEDS: DEXTROSE 5%-0.45% NACL 1,000 ML IV SCH ×2 (10:06→18:55)
[2016-06-09] MEDS: PANTOPRAZOLE 40 MG TABLET PO SCH (10:06)
[2016-06-09] MEDS: NICOTINE 21MG/24HR PATCH TRANSDERM SCH (10:06)
[2016-06-09] MEDS: ASPIRIN 81 MG CHEW PO SCH (10:07)
[2016-06-09] MEDS: metroNIDAZOLE 500 MG TAB PO SCH ×2 (10:07→18:48)
[2016-06-09] MEDS: carBAMazepine 200 MG TAB PO SCH ×2 (10:07→22:15)
[2016-06-09] MEDS: NADOLOL 20 MG TAB PO SCH ×2 (10:08→22:16)
[2016-06-09] MEDS: VERAPAMIL 80 MG TAB PO SCH ×3 (10:08→22:15)
[2016-06-09] MEDS: methylPREDNISolone SOD SUCCI 40 MG/ML 1 ML VIAL IV SCH (10:08)
[2016-06-09] MEDS: cefTRIAXone 2,000 MG in SODIUM CHLORIDE 0.9% 100 ML IVPB SCH (10:12)
--- NOTE | 2016-06-09 10:28 | P.PN ---
Subjective This is a 55-year-old male being evaluated and examined today on the sixth floor. He was admitted to the hospital with an acute COPD exacerbation, tracheobronchitis and severe wheezing. Currently the patient is hemodynamically stable. The patient was initially on heparin and had been switched to Xeralto. The patient underwent a CAT scan which showed free air with possible sigmoid colon diverticular perforation. The patient did go for surgery after he received a dose of K Centra prior to going to surgery to reverse his Xeralto. Subsequently the patient did end up developing an abscess postop. And it seems that he will go for either a needle aspiration to drain the abscess or he'll go back to the OR for washout and drainage. Upon examination the patient is resting up in bed on 2 L of oxygen via nasal cannula. He states that his breathing is better and under control. Denies any coughing at this time. The patient is using his incentive spirometer and pulling volumes of 1750. The patient complains of only generalized abdominal pain post surgery. He has been afebrile. Objective - Vital Signs Vital signs: Vital Signs Temp 98.0 F 06/09/16 07:55 Pulse 85 06/09/16 07:55 Resp 16 06/09/16 07:55 BP 108/69 06/09/16 07:55 Pulse Ox 91 L 06/09/16 07:55 Intake & Output 06/08/16 06/09/16 06/09/16 18:59 06:59 18:59 Output Total 200 Balance -200 Output: Stool 200 Other: Voiding Method Toilet Toilet Urinal Urinal - Exam GENERAL EXAM: Alert, active, comfortable in no apparent distress. HEAD: Normocephalic. EYES: Normal reaction of pupils, equal size. NOSE: Clear with pink turbinates. THROAT: No erythema or exudates. NECK: No masses, no JVD. CHEST: No chest wall deformity. LUNGS: Bilaterally good air entry. Lung sounds noted to be diminished at the bases. CVS: S1 and S2 normal with no audible mumurs, regular rhythm. ABDOMEN: Hypoactive bowel sounds. Patient has a midline surgical incision that is dry and intact, has dressing in place. He is a left lower quadrant ostomy and has already started to produce stool out of it. EXTREMITIES: No edema noted, pedal pulses palpable. SKIN: No rashes CENTRAL NERVOUS SYSTEM: No focal deficits, tone is normal in all 4 extremities. - Labs CBC & Chem 7: 06/09/16 07:53 06/09/16 07:53 Labs: Abnormal Lab Results - Last 24 Hours (Table) 06/09/16 06/09/16 Range/Units 07:53 07:53 WBC 15.6 H (3.8-10.6) k/uL RBC 3.81 L (4.30-5.90) m/uL Hgb 12.4 L (13.0-17.5) gm/dL MCV 103.6 H (80.0-100.0) fL Neutrophils # 13.1 H (1.3-7.7) k/uL Sodium 134 L (137-145) mmol/L Chloride 97 L (98-107) mmol/L Creatinine 0.62 L (0.66-1.25) mg/dL Glucose 102 H (74-99) mg/dL Calcium 7.9 L (8.4-10.2) mg/dL Total Protein 5.1 L (6.3-8.2) g/dL Albumin 2.6 L (3.5-5.0) g/dL Microbiology - Last 24 Hours (Table) 06/03/16 17:10 Blood Culture - Preliminary Blood No Growth after 120 hours 06/03/16 16:49 Blood Culture - Preliminary Blood No Growth after 120 hours Assessment and Plan Plan: Assessment Chronic obstructive pulmonary disease with acute exacerbation Current Pulmonary embolism, with a history of previous bilateral pulmonary embolism Leukocytosis with elevated liver enzymes Perforated diverticulum Pleuritic chest pain related to pulmonary embolism Hypertension Current active nicotine user Acute on chronic hypoxic respiratory failure Plan Medications have been reviewed and will be continued. The patient chronically uses home O2 of 3 L via nasal cannula at all times.. He appears in no distress and his pulse ox has been stable per nursing staff. Continue with nebulizer treatments and IV steroids. Smoking cessation education provided. Patient to have abdominal abscess treated by surgical. We will continue to monitor labs and adjust treatment as necessary. I performed an examination of the patient and discussed their management with the nurse practitioner. I have reviewed the nurse practitioner's note and agree with the documented findings and plan of care.
--- NOTE | 2016-06-09 15:38 | P.PN ---
Subjective Principal diagnosis: Diverticulitis The patient is seen on rounds. No nausea or vomiting. Breathing is stable. Continues to have some abdominal pain. Incisional pain with coughing. His ostomy is working. He had education session yesterday and is due for another one. Objective - Vital Signs Vital signs: Vital Signs Temp 98.0 F 06/09/16 07:55 Pulse 88 06/09/16 15:27 Resp 16 06/09/16 11:37 BP 108/69 06/09/16 07:55 Pulse Ox 91 L 06/09/16 07:55 Intake & Output 06/08/16 06/09/16 06/09/16 18:59 06:59 18:59 Output Total 200 Balance -200 Weight 73.3 kg Output: Stool 200 Other: Voiding Method Toilet Toilet Urinal Urinal - Constitutional General appearance: Present: cooperative, no acute distress - Respiratory Respiratory: bilateral: CTA, diminished (At the bases) - Cardiovascular Rhythm: regular - Gastrointestinal General gastrointestinal: Present: decreased bowel sounds, soft, tenderness ( Diffuse, more left lateral abdomen) Localized gastrointestinal: surgical scar: midline (Dressing has some light brown drainage. No evidence of cellulitis on the skin) - Labs CBC & Chem 7: 06/09/16 07:53 06/09/16 07:53 Labs: Abnormal Lab Results - Last 24 Hours (Table) 06/09/16 06/09/16 Range/Units 07:53 07:53 WBC 15.6 H (3.8-10.6) k/uL RBC 3.81 L (4.30-5.90) m/uL Hgb 12.4 L (13.0-17.5) gm/dL MCV 103.6 H (80.0-100.0) fL Neutrophils # 13.1 H (1.3-7.7) k/uL Sodium 134 L (137-145) mmol/L Chloride 97 L (98-107) mmol/L Creatinine 0.62 L (0.66-1.25) mg/dL Glucose 102 H (74-99) mg/dL Calcium 7.9 L (8.4-10.2) mg/dL Total Protein 5.1 L (6.3-8.2) g/dL Albumin 2.6 L (3.5-5.0) g/dL Microbiology - Last 24 Hours (Table) 06/03/16 17:10 Blood Culture - Preliminary Blood No Growth after 120 hours 06/03/16 16:49 Blood Culture - Preliminary Blood No Growth after 120 hours Assessment and Plan (1) Diverticulitis of colon with perforation Status: Acute (2) DVT (deep venous thrombosis) Status: Acute (3) Pulmonary embolism Status: Acute Plan: Discussed the CT findings with the patient. There is some fluid in the abdomen which radiology will attempt to drain and culture. His anticoagulation needs to be held today and the procedure will be done tomorrow. We'll see whether that is just reactive fluid or a developing abscess. He's on antibiotics were chart being adjusted. His white count is down today to 15,900.
--- NOTE | 2016-06-09 19:17 | PN ---
DATE OF SERVICE: 06/08/2016 REASON FOR FOLLOW-UP: Abdominal abscess and secondary peritonitis. INTERVAL HISTORY: The patient is afebrile. He was complaining of more abdominal pain and of note had a jump in his white count. Hence repeat CT has been ordered. The patient denies having any chest pain or shortness of breath or cough. No nausea, no vomiting. On examination, blood pressure is 113/72, pulse 86, temperature is 97. He is 94% on room air. General description is a middle-age male lying in bed in no distress. RESPIRATORY SYSTEM: Unlabored breathing. Clear to auscultation anteriorly. HEART: S1, S2 regular rate and rhythm. ABDOMEN: Soft, nondistended and minimally tender. Incision is clean. LABS: Hemoglobin is 13.5, white count 20.1 with a BUN of 16, creatinine 0.58. Blood culture has been negative. DIAGNOSTIC IMPRESSION AND PLAN: Patient with secondary peritonitis from perforated sigmoid diverticulitis, status post colectomy and diverting colostomy. Patient at this time continue on Rocephin and Flagyl and follow up on CT of the abdomen and pelvis. Hopefully CT-guided drainage of this collection. If not, he will have an open drainage at which time culture will be requested so we can narrow down his antibiotics. Continue supportive care.
[2016-06-09 22:02] LABS: Appearance,Urine Clear (Clear); Bilirubin,Urine Negative (Negative); Glucose,Urine (UA) Negative (Negative); Ketones,Urine Negative (Negative); Leukocyte Esterase,Urine Negative (Negative); Nitrite,Urine Negative (Negative); PH, Urine 6.5 (5.0-8.0); Protein,Urine Trace (Negative); Specific Gravity,Urine 1.023 (1.001-1.035); UA Billing (MACRO vs. MICRO) CHEM; Urobilinogen,Urine <2.0 mg/dL (<2.0)
[2016-06-09] MEDS: LATANOPROST 0.005% OPHTH DROPS 2.5 ML BTL BOTH EYES SCH (22:16)
[2016-06-10] MEDS: METOCLOPRAMIDE 5 MG/ML 2 ML VIAL IVP SCH ×3 (00:54→12:04)
[2016-06-10] MEDS: metroNIDAZOLE 500 MG TAB PO SCH ×3 (00:54→17:37)
[2016-06-10] MEDS: DEXTROSE 5%-0.45% NACL 1,000 ML IV SCH ×3 (04:54→22:16)
[2016-06-10] MEDS: HYDROcodone/APAP 7.5-325MG 1 EACH TAB PO PRN ×3 (04:58→19:19)
[2016-06-10] MEDS: IPRATROPIUM-ALBUTEROL 3 ML NEB INHALATION SCH ×4 (06:56→19:55)
[2016-06-10] MEDS: BUDESONIDE 1 MG/2 ML NEBU INHALATION SCH ×2 (06:56→19:55)
[2016-06-10] MEDS: FORMOTEROL FUMARATE 20 MCG/2 ML NEBU INHALATION SCH ×2 (06:57→19:55)
[2016-06-10 07:55] LABS: Basophils % (A) 0 %; CH 32.3; CHCM 31.4; Eosinophils # (A) 0.1 k/uL (0-0.7); Eosinophils % (A) 1 %; HCT 33.9 % (39.0-53.0); HDW 1.97; HGB 10.7 gm/dL (13.0-17.5); Luc # (Auto) 0.19; Luc % (Auto) 2; Lymphocytes % (A) 8 %; MCH 32.7 pg (25.0-35.0); MCHC 31.6 g/dL (31.0-37.0); MCV 103.4 fL (80.0-100.0); Macrocytosis Slight; Mean Platelet Volume 7.2; Monocytes # (A) 0.7 k/uL (0-1.0); Monocytes % (A) 5 %; Neutrophils # (A) 10.3 k/uL (1.3-7.7); Neutrophils % (A) 84 %; RBC 3.27 m/uL (4.30-5.90); RDW 14.2 % (11.5-15.5); WBC 12.3 k/uL (3.8-10.6); WBC (Perox) 12.97
[2016-06-10] MEDS: methylPREDNISolone SOD SUCCI 40 MG/ML 1 ML VIAL IV SCH (08:13)
[2016-06-10] MEDS: NICOTINE 21MG/24HR PATCH TRANSDERM SCH (08:13)
[2016-06-10] MEDS: cefTRIAXone 2,000 MG in SODIUM CHLORIDE 0.9% 100 ML IVPB SCH (08:13)
[2016-06-10] MEDS: NADOLOL 20 MG TAB PO SCH ×2 (08:14→21:30)
[2016-06-10] MEDS: carBAMazepine 200 MG TAB PO SCH ×2 (08:15→21:30)
[2016-06-10] MEDS: PANTOPRAZOLE 40 MG TABLET PO SCH (08:15)
[2016-06-10] MEDS: VERAPAMIL 80 MG TAB PO SCH ×3 (08:15→21:29)
[2016-06-10] MEDS: ASPIRIN 81 MG CHEW PO SCH (08:17)
[2016-06-10 08:20] LABS: ALT 33 U/L (21-72); AST 18 U/L (17-59); Alkaline Phosphatase 72 U/L (38-126); Anion Gap 8 mmol/L; Blood Urea Nitrogen 13 mg/dL (9-20); Calcium 7.3 mg/dL (8.4-10.2); Carbon Dioxide 23 mmol/L (22-30); Chloride 104 mmol/L (98-107); Glucose 123 mg/dL (74-99); Magnesium 1.7 mg/dL (1.6-2.3); Non-African American GFR(MDRD) >60 (>60 ml/min/1.73 sqM); Potassium 4.3 mmol/L (3.5-5.1); Sodium 135 mmol/L (137-145); Total Bilirubin 0.4 mg/dL (0.2-1.3); Total Protein 4.6 g/dL (6.3-8.2)
[2016-06-10 09:00] LABS: Prothrombin Time 10.4 sec (9.0-12.0)
--- NOTE | 2016-06-10 11:32 | CT ---
EXAMINATION TYPE: CT guided FNA DATE OF EXAM: 06/10/2016 9:34 AM COMPARISON: NONE HISTORY: Request for fine needle aspiration of a small intra-abdominal fluid collection within the le ft abdomen. CT DLP: 727mGycm PROCEDURE: The risks, applications, benefits and alternatives, were discussed with the patient and questions wer e answered. Informed consent was obtained. The patient was placed supine on the fluoroscopic table, prepped and draped in the usual sterile fashion. A 22-gauge system was utilized with direct passage of the needle into intra-abdominal fluid collecti on under CT guidance. Referring physician requested FNA only. Samples were obtained and sent to path ology for analysis. The patient was stable throughout procedure and remained stable upon discharge from radiology. All e lements of maximal barrier and sterile technique were utilized. IMPRESSION: 1. Successful left intra-abdominal fluid collection fine needle aspiration under CT guidance.
--- NOTE | 2016-06-10 13:17 | P.PN ---
Subjective The patient's feeling somewhat better today. No nausea or vomiting. He went down for a CT-guided aspiration this morning. I discussed the findings with Dr. Bowers. It did appear to be infected fluid. Objective - Vital Signs Vital signs: Vital Signs Temp 97.6 F 06/10/16 09:07 Pulse 80 06/10/16 11:02 Resp 14 06/10/16 09:24 BP 102/70 06/10/16 09:24 Pulse Ox 90 L 06/10/16 09:24 Intake & Output 06/09/16 06/10/16 06/10/16 18:59 06:59 18:59 Output Total 200 100 100 Balance -200 -100 -100 Weight 73.3 kg Output: Stool 200 100 100 Other: Voiding Method Toilet Toilet Toilet Urinal Urinal Urinal - Constitutional General appearance: Present: cooperative, no acute distress - Respiratory Respiratory: bilateral: CTA - Gastrointestinal General gastrointestinal: Present: normal bowel sounds, soft, tenderness ( Incisional and left lateral abdomen) Localized gastrointestinal: surgical scar: LLQ (Ostomy is functioning well) - Labs CBC & Chem 7: 06/10/16 07:27 06/10/16 07:27 Labs: Abnormal Lab Results - Last 24 Hours (Table) 06/09/16 06/10/16 06/10/16 Range/Units 18:20 07:27 07:27 WBC 12.3 H (3.8-10.6) k/uL RBC 3.27 L (4.30-5.90) m/uL Hgb 10.7 L (13.0-17.5) gm/dL Hct 33.9 L (39.0-53.0) % MCV 103.4 H (80.0-100.0) fL Neutrophils # 10.3 H (1.3-7.7) k/uL Sodium 135 L (137-145) mmol/L Creatinine 0.49 L (0.66-1.25) mg/dL Glucose 123 H (74-99) mg/dL Calcium 7.3 L (8.4-10.2) mg/dL Total Protein 4.6 L (6.3-8.2) g/dL Albumin 2.2 L (3.5-5.0) g/dL Urine Protein Trace H (Negative) Microbiology - Last 24 Hours (Table) 06/08/16 18:20 Urine Culture - Preliminary Urine,Voided 06/03/16 17:10 Blood Culture - Final Blood No Growth after 144 hours 06/03/16 16:49 Blood Culture - Final Blood No Growth after 144 hours Assessment and Plan (1) Diverticulitis of colon with perforation Status: Acute (2) DVT (deep venous thrombosis) Status: Acute (3) Pulmonary embolism Status: Acute Plan: Continue IV antibiotics per infectious diseases. The fluid was aspirated and we 'll check the cultures. His white count is improving. If he develops worsened leukocytosis or fever he may need the computed tomography scan repeated. Progressing slowly.
--- NOTE | 2016-06-10 13:18 | PN ---
DATE OF SERVICE: 06/09/2016 Reason for follow-up: Abdominal abscess. INTERVAL HISTORY: The patient is afebrile. He is complaining of abdominal pain though no worsening. Denies having nausea and vomiting. Did have output in his colostomy bag. Denies any chest pain or shortness of breath. Occasional cough. On examination, the blood pressure is 118/68 with a pulse of 84, temperature 979, he is 94% on room air. General description: Middle is a middle aged male lying in bed in no distress. RESPIRATORY SYSTEM: Unlabored breathing. Clear to auscultation anteriorly. HEART: S1, S2 with regular rate and rhythm. ABDOMEN: Soft, slightly distended. No guarding or rigidity. EXTREMITIES: No edema of feet. LABS: Hemoglobin is 12.4, white count 15.6. BUN of 15, creatinine 0.62. DIAGNOSTIC IMPRESSION AND PLAN: Patient with secondary peritonitis from perforated sigmoid diverticulitis, status post sigmoid colectomy and diverting colostomy now with CT suggestive of possible abscess. The CT-guided drainage has been ordered as well as cultures. Antibiotics will continue in the form of Rocephin and flagyl at this point, adjusting it further based on the culture report. Continue supportive care. MTDD
--- NOTE | 2016-06-10 13:31 | P.PN ---
Subjective 55-year-old being seen on rounds this morning patient continues to have left lateral abdominal discomfort. Recent states that he did have a bowel movement from the ostomy this morning. The left lower quadrant does show an ostomy functioning well surgical dressing dry patient did undergo per interventional radiology fine-needle aspiration of a small intra-abdominal fluid collection within the left abdomen today done on June 10 Objective - Vital Signs Vital signs: Vital Signs Temp 97.6 F 06/10/16 09:07 Pulse 80 06/10/16 11:02 Resp 14 06/10/16 09:24 BP 102/70 06/10/16 09:24 Pulse Ox 90 L 06/10/16 09:24 Intake & Output 06/09/16 06/10/16 06/10/16 18:59 06:59 18:59 Output Total 200 100 100 Balance -200 -100 -100 Weight 73.3 kg Output: Stool 200 100 100 Other: Voiding Method Toilet Toilet Toilet Urinal Urinal Urinal - Exam Physical exam 55-year-old male pleasant cooperative oriented 3 Lungs essentially clear adequate air movement on room air Heart S1-S2 audible and regular denying chest pain abdomen continues to report having tenderness to the left lateral abdominal wall ostomy left lower quadrant stoma pink scant amount of stool in the hospital aches states urinating no difficulty denies any nausea vomiting Extremities no edema to the upper or lower extremities - Labs CBC & Chem 7: 06/10/16 07:27 06/10/16 07:27 Labs: Abnormal Lab Results - Last 24 Hours (Table) 06/09/16 06/10/16 06/10/16 Range/Units 18:20 07:27 07:27 WBC 12.3 H (3.8-10.6) k/uL RBC 3.27 L (4.30-5.90) m/uL Hgb 10.7 L (13.0-17.5) gm/dL Hct 33.9 L (39.0-53.0) % MCV 103.4 H (80.0-100.0) fL Neutrophils # 10.3 H (1.3-7.7) k/uL Sodium 135 L (137-145) mmol/L Creatinine 0.49 L (0.66-1.25) mg/dL Glucose 123 H (74-99) mg/dL Calcium 7.3 L (8.4-10.2) mg/dL Total Protein 4.6 L (6.3-8.2) g/dL Albumin 2.2 L (3.5-5.0) g/dL Urine Protein Trace H (Negative) Microbiology - Last 24 Hours (Table) 06/08/16 18:20 Urine Culture - Preliminary Urine,Voided 06/03/16 17:10 Blood Culture - Final Blood No Growth after 144 hours 06/03/16 16:49 Blood Culture - Final Blood No Growth after 144 hours Assessment and Plan Plan: Impression : Present on admission shortness of breath multifactorial suspect due to left lower lobe pulmonary emboli with decompensated congestive heart failure systolic dysfunction with acute exacerbation COPD Subtherapeutic on INR 1.1 on admission Chronic hypoxic respiratory failure supplemental home O2 Chronic nicotine dependency Present on admission pleuritic chest pain suspect due to pulmonary emboli Acute exacerbation of COPD Acute on chronic hypoxic respiratory failure essential hypertension Echocardiogram done on May 29 show left ventricular systolic function mildly impaired EF between 45 and 50% Present on admission sinus tachycardic likely reactive Chronic debility due to comorbidities CT CAT scan of the chest shows emphysema Abdominal pain suspect due to perforated diverticulitis Status post June 03 sigmoid colectomy with end colostomy for perforated diverticulitis New-onset postop leukocytosis likely due to developing abdominal abscess as evident on a CAT scan of the abdomen pelvis Status post fine-needle aspiration of a small intra-abdominal fluid collection within the left abdomen interventional radiology done on June 10 Plan Follow-up on pending labs postop surgical care per surgical service Pain control Xarelto 15 mg twice a day for 3 weeks then 20 mg daily for treatment of the pulmonary emboli surgery indicates okay 2 resume to Xarelto Resume home meds as appropriate Home care at the time of discharge to reinforce ostomy teaching Increase activity Await further recommendations by infectious disease DVT and GI prophylaxis The above dictated assessment and findings were discussed with dr james Gill and the plan of care have been dictated as directed. Anastasia Garcia nurse practitioner acting as a scribe for dr ramirez
[2016-06-10 15:41] VITALS: RESP 16
--- NOTE | 2016-06-10 16:57 | P.PN ---
Subjective This is a 55-year-old male being evaluated and examined today on the sixth floor. He was admitted to the hospital with an acute COPD exacerbation, tracheobronchitis and severe wheezing. Currently the patient is hemodynamically stable. The patient was initially on heparin and had been switched to Xeralto. The patient underwent a CAT scan which showed free air with possible sigmoid colon diverticular perforation. The patient did go for surgery after he received a dose of K Centra prior to going to surgery to reverse his Xeralto. Subsequently the patient did end up developing an abscess postop. Patient underwent a CT-guided aspiration this morning of his abscess. Upon examination the patient is resting up in bed on 2 L of oxygen via nasal cannula. He states that his breathing is better and under control. Denies any coughing at this time. The patient is using his incentive spirometer and pulling volumes of 1750. The patient complains of only generalized abdominal pain post surgery. He has been afebrile. Objective - Vital Signs Vital signs: Vital Signs Temp 97.6 F 06/10/16 15:41 Pulse 81 06/10/16 16:25 Resp 16 06/10/16 15:41 BP 113/69 06/10/16 15:41 Pulse Ox 97 06/10/16 15:41 Intake & Output 06/09/16 06/10/16 06/10/16 18:59 06:59 18:59 Output Total 200 100 100 Balance -200 -100 -100 Weight 73.3 kg Output: Stool 200 100 100 Other: Voiding Method Toilet Toilet Toilet Urinal Urinal Urinal - Exam GENERAL EXAM: Alert, active, comfortable in no apparent distress. HEAD: Normocephalic. EYES: Normal reaction of pupils, equal size. NOSE: Clear with pink turbinates. THROAT: No erythema or exudates. NECK: No masses, no JVD. CHEST: No chest wall deformity. LUNGS: Bilaterally good air entry. Lung sounds noted to be diminished at the bases. CVS: S1 and S2 normal with no audible mumurs, regular rhythm. ABDOMEN: Hypoactive bowel sounds. Patient has a midline surgical incision that is dry and intact, has dressing in place. He is a left lower quadrant ostomy and has already started to produce stool out of it. EXTREMITIES: No edema noted, pedal pulses palpable. SKIN: No rashes CENTRAL NERVOUS SYSTEM: No focal deficits, tone is normal in all 4 extremities. - Labs CBC & Chem 7: 06/10/16 07:27 06/10/16 07:27 Labs: Abnormal Lab Results - Last 24 Hours (Table) 06/09/16 06/10/16 06/10/16 Range/Units 18:20 07:27 07:27 WBC 12.3 H (3.8-10.6) k/uL RBC 3.27 L (4.30-5.90) m/uL Hgb 10.7 L (13.0-17.5) gm/dL Hct 33.9 L (39.0-53.0) % MCV 103.4 H (80.0-100.0) fL Neutrophils # 10.3 H (1.3-7.7) k/uL Sodium 135 L (137-145) mmol/L Creatinine 0.49 L (0.66-1.25) mg/dL Glucose 123 H (74-99) mg/dL Calcium 7.3 L (8.4-10.2) mg/dL Total Protein 4.6 L (6.3-8.2) g/dL Albumin 2.2 L (3.5-5.0) g/dL Urine Protein Trace H (Negative) Microbiology - Last 24 Hours (Table) 06/08/16 18:20 Urine Culture - Preliminary Urine,Voided 06/03/16 17:10 Blood Culture - Final Blood No Growth after 144 hours 06/03/16 16:49 Blood Culture - Final Blood No Growth after 144 hours Assessment and Plan Plan: Assessment Chronic obstructive pulmonary disease with acute exacerbation Current Pulmonary embolism, with a history of previous bilateral pulmonary embolism Leukocytosis with elevated liver enzymes Perforated diverticulum Pleuritic chest pain related to pulmonary embolism Hypertension Current active nicotine user Acute on chronic hypoxic respiratory failure Plan Medications have been reviewed and will be continued. The patient chronically uses home O2 of 3 L via nasal cannula at all times.. He appears in no distress and his pulse ox has been stable per nursing staff. Continue with nebulizer treatments and IV steroids. Smoking cessation education provided. Patient to have abdominal abscess treated by surgical, cultures are currently pending post CT-guided aspiration of abscess.. We will continue to monitor labs and adjust treatment as necessary. I performed an examination of the patient and discussed their management with the nurse practitioner. I have reviewed the nurse practitioner's note and agree with the documented findings and plan of care.
[2016-06-10] MEDS: METOCLOPRAMIDE 10 MG TAB PO SCH ×2 (17:37→21:30)
[2016-06-10] MEDS: LATANOPROST 0.005% OPHTH DROPS 2.5 ML BTL BOTH EYES SCH (21:30)
[2016-06-11] MEDS: metroNIDAZOLE 500 MG TAB PO SCH ×3 (00:34→16:50)
[2016-06-11] MEDS: HYDROcodone/APAP 7.5-325MG 1 EACH TAB PO PRN ×3 (07:11→18:13)
[2016-06-11] MEDS: FORMOTEROL FUMARATE 20 MCG/2 ML NEBU INHALATION SCH ×2 (07:26→20:25)
[2016-06-11] MEDS: IPRATROPIUM-ALBUTEROL 3 ML NEB INHALATION SCH ×4 (07:26→20:25)
[2016-06-11] MEDS: BUDESONIDE 1 MG/2 ML NEBU INHALATION SCH ×2 (07:26→20:25)
[2016-06-11 07:38] LABS: ALT 30 U/L (21-72); AST 22 U/L (17-59); Alkaline Phosphatase 59 U/L (38-126); Anion Gap 10 mmol/L; Blood Urea Nitrogen 16 mg/dL (9-20); Calcium 8.7 mg/dL (8.4-10.2); Carbon Dioxide 26 mmol/L (22-30); Chloride 102 mmol/L (98-107); Glucose 89 mg/dL (74-99); Non-African American GFR(MDRD) >60 (>60 ml/min/1.73 sqM); Potassium 4.9 mmol/L (3.5-5.1); Sodium 138 mmol/L (137-145); Total Bilirubin 0.5 mg/dL (0.2-1.3); Total Protein 5.5 g/dL (6.3-8.2)
[2016-06-11 07:54] LABS: Basophils # (A) 0.1 k/uL (0-0.2); Basophils % (A) 1 %; CH 32.3; CHCM 31.6; Eosinophils # (A) 0.1 k/uL (0-0.7); Eosinophils % (A) 1 %; HCT 38.1 % (39.0-53.0); HDW 2.01; HGB 11.9 gm/dL (13.0-17.5); Luc # (Auto) 0.27; Luc % (Auto) 2; Lymphocytes # (A) 1.5 k/uL (1.0-4.8); Lymphocytes % (A) 11 %; MCH 32.1 pg (25.0-35.0); MCHC 31.3 g/dL (31.0-37.0); MCV 102.5 fL (80.0-100.0); Macrocytosis Slight; Mean Platelet Volume 7.8; Monocytes # (A) 0.5 k/uL (0-1.0); Monocytes % (A) 4 %; Neutrophils # (A) 11.5 k/uL (1.3-7.7); Neutrophils % (A) 83 %; RBC 3.72 m/uL (4.30-5.90); RDW 14.2 % (11.5-15.5); WBC 13.9 k/uL (3.8-10.6); WBC (Perox) 14.67
[2016-06-11] MEDS: carBAMazepine 200 MG TAB PO SCH ×2 (08:34→20:30)
[2016-06-11] MEDS: NADOLOL 20 MG TAB PO SCH ×2 (08:34→20:36)
[2016-06-11] MEDS: VERAPAMIL 80 MG TAB PO SCH ×3 (08:34→20:30)
[2016-06-11] MEDS: ASPIRIN 81 MG CHEW PO SCH (08:34)
[2016-06-11] MEDS: NICOTINE 21MG/24HR PATCH TRANSDERM SCH (08:34)
[2016-06-11] MEDS: PANTOPRAZOLE 40 MG TABLET PO SCH (08:35)
[2016-06-11] MEDS: METOCLOPRAMIDE 10 MG TAB PO SCH ×4 (08:35→20:30)
[2016-06-11] MEDS: cefTRIAXone 2,000 MG in SODIUM CHLORIDE 0.9% 100 ML IVPB SCH (08:35)
[2016-06-11] MEDS ORDERED: predniSONE 20 MG TAB PO SCH (09:00)
--- NOTE | 2016-06-11 10:08 | P.PN ---
Subjective 55-year-old male being seen this morning resting in bed ostomy educator at the bedside ostomy teaching being reinforced. Patient is status post fine-needle aspiration of a small intra-abdominal fluid collection within the left abdomen done on June 10. Patient states is less tenderness to the left abdominal wall temp this morning scant amount of stool noted in the ostomy bag this morning 97.7 the white counts morning is 13.9 anaerobic fluid is currently pending blood cultures 2 are negative and the urine culture is pending Status post June 03 sigmoid colectomy with end colostomy for perforated diverticulitis Objective - Vital Signs Vital signs: Vital Signs Temp 97.7 F 06/11/16 07:25 Pulse 88 06/11/16 07:47 Resp 16 06/11/16 07:25 BP 137/87 06/11/16 07:25 Pulse Ox 94 L 06/11/16 07:29 Intake & Output 06/10/16 06/11/16 06/11/16 18:59 06:59 18:59 Output Total 200 Balance -200 Output: Stool 200 Other: Voiding Method Toilet Toilet Urinal Urinal # Voids 1 # Bowel Movements 1 - Exam Physical exam Pleasant 55-year-old sitting up in bed ostomy teaching and progress oriented 3 Lungs essentially clear with adequate air movement on room air no cough Heart S1-S2 audible and regular denying chest pain no murmur Abdomen soft slight tenderness to the left lower abdominal wall ostomy left lower quadrant stoma pink scant amount of stool noted in the ostomy bag bowel tones present states urinating no difficulty states no nausea no vomiting no decrease in appetite Extremities no evidence of edema - Labs CBC & Chem 7: 06/11/16 06:59 06/11/16 06:59 Labs: Abnormal Lab Results - Last 24 Hours (Table) 06/11/16 06/11/16 Range/Units 06:59 06:59 WBC 13.9 H (3.8-10.6) k/uL RBC 3.72 L (4.30-5.90) m/uL Hgb 11.9 L (13.0-17.5) gm/dL Hct 38.1 L (39.0-53.0) % MCV 102.5 H (80.0-100.0) fL Plt Count 466 H (150-450) k/uL Neutrophils # 11.5 H (1.3-7.7) k/uL Creatinine 0.62 L (0.66-1.25) mg/dL Total Protein 5.5 L (6.3-8.2) g/dL Albumin 2.8 L (3.5-5.0) g/dL Microbiology - Last 24 Hours (Table) 06/10/16 09:19 Gram Stain - Preliminary Aspirate Body Fluid Culture - Preliminary 06/10/16 09:19 Anaerobic Culture - Preliminary Abdomen 06/08/16 18:20 Urine Culture - Preliminary Urine,Voided Assessment and Plan Plan: Impression : Present on admission shortness of breath multifactorial suspect due to left lower lobe pulmonary emboli with decompensated congestive heart failure systolic dysfunction with acute exacerbation COPD Subtherapeutic on INR 1.1 on admission Chronic hypoxic respiratory failure supplemental home O2 Chronic nicotine dependency Present on admission pleuritic chest pain suspect due to pulmonary emboli Acute exacerbation of COPD Acute on chronic hypoxic respiratory failure essential hypertension Echocardiogram done on May 29 show left ventricular systolic function mildly impaired EF between 45 and 50% Present on admission sinus tachycardic likely reactive Chronic debility due to comorbidities CT CAT scan of the chest shows emphysema Abdominal pain suspect due to perforated diverticulitis Status post June 03 sigmoid colectomy with end colostomy for perforated diverticulitis New-onset postop leukocytosis likely due to developing abdominal abscess as evident on a CAT scan of the abdomen pelvis Status post fine-needle aspiration of a small intra-abdominal fluid collection within the left abdomen interventional radiology done on June 10 Mild protein calorie malnutrition suspect due to poor caloric intake Plan postop surgical care per surgical service Pain control Xarelto 15 mg twice a day for 3 weeks then 20 mg daily for treatment of the pulmonary emboli surgery indicates okay 2 resume to Xarelto Resume home meds as appropriate Home care at the time of discharge to reinforce ostomy teaching Increase activity Await further recommendations by infectious disease DVT and GI prophylaxis The above dictated assessment and findings were discussed with dr james Gill and the plan of care have been dictated as directed. Anastasia Garcia nurse practitioner acting as a scribe for dr ramirez
--- NOTE | 2016-06-11 10:36 | PN ---
DATE OF SERVICE: 06/10/2016 Reason for follow-up: Secondary peritonitis and abdominal abscess. INTERVAL HISTORY: The patient is afebrile. The patient is status post CT-guided drainage of the fluid by interventional radiology. The patient tolerated the procedure. Overall abdominal pain is currently controlled. Denies significant chest pain or cough. On examination, blood pressure is 116/77 with a pulse of 87, temperature is 97.6, he is 97% on 2 liters nasal cannula. General description is a middle-age male up in the bed in no distress. RESPIRATORY SYSTEM: Unlabored breathing. Clear to auscultation anteriorly. HEART: S1, S2 regular rate and rhythm. ABDOMEN: Soft. Slightly distended. EXTREMITIES: No edema of feet. LABS: Hemoglobin is 10.7, white count 5.3 with a BUN of 30, creatinine 0.49. DIAGNOSTIC IMPRESSION AND PLAN: Patient with secondary peritonitis from perforated sigmoid diverticulitis, status post diverting colostomy with some evidence of some fluid collection, which has been CT guided drainage. Will wait for the cultures to finalize. Continue the patient on Rocephin and Flagyl. His white count showing a downward trend. PLAN: Continue supportive care.
[2016-06-11] MEDS: DEXTROSE 5%-0.45% NACL 1,000 ML IV SCH ×2 (10:59→17:19)
[2016-06-11] MEDS: MICAFUNGIN 100 MG in SODIUM CHLORIDE 0.9% 100 ML IVPB SCH (13:28)
--- NOTE | 2016-06-11 14:27 | P.PN ---
Progress Note - Text Gram stain shows budding yeast. This was discussed with Dr Mcdonald and he will address it. Dr Estrella will see the patient tomorrow.
--- NOTE | 2016-06-11 16:38 | PN ---
DATE OF SERVICE: 06/11/2016 Reason for follow-up: Secondary peritonitis and abdominal abscess. INTERVAL HISTORY: The patient is afebrile. His abdominal pain is currently controlled. The patient denies having any significant chest pain or shortness of breath or cough. On examination, blood pressure is 137/87, pulse of 83. Temperature 97.7. He is 92% on room air. General description is a middle-age male lying in bed in no distress. RESPIRATORY SYSTEM: Unlabored breathing. Clear to auscultation anteriorly. HEART: S1, S2 regular rate and rhythm. ABDOMEN: Soft slightly distended. Incision is intact. LABS: Hemoglobin 11.9, white count 13.9 with a BUN of 16, creatinine 0.62. The abdominal fluid culture showing yeast species. DIAGNOSTIC IMPRESSION AND PLAN: Patient with secondary peritonitis from a perforated sigmoid diverticulitis, status post colectomy and diverting colostomy with development of abscess, status post CT-guided drainage of the same. Cultures gram stain now showing yeast. We will add micafungin because of contraindication to use the Diflucan from his other medication. Continue Rocephin and Flagyl adjusting antibiotic further based on further culture report. Continue supportive care. MTDD
--- NOTE | 2016-06-11 17:10 | PN ---
This patient is seen, evaluated, examined on the fifth floor. This patient is a 55-year-old male who is seen, evaluated, examined. Clinically patient is slightly doing better. Patient is status post drainage; had percutaneous drainage of the abdominal abscess. Patient has perforated diverticulosis as well. Remains on broad-spectrum antibiotics. He is otherwise awake and alert, breathing comfortably. No obvious distress present. Hemodynamic status is stable. Last set of vitals includes blood pressure 137/87, respiratory rate 16, pulse 83, temperature 97, saturation of 94% on room air. HEENT EXAMINATION: Otherwise unremarkable. NECK: Supple. LUNGS: Good air entry bilaterally without any significant rales, rhonchi or rub. HEART: Regular rate, rhythm. S1, S2 audible. ABDOMEN: Soft. No rebound or rigidity. EXTREMITIES: Plus one peripheral pulses. NEUROLOGICAL EXAMINATION: Otherwise awake and alert. His labs are reviewed. Medications reviewed. Patient is on: 1. Isoptin. 2. Xarelto. 3. Prednisone 40. 4. Protonix. 5. Habitrol patch. 6. Micafungin. 7. Flagyl. 8. Reglan. 9. Xalatan. 10. Atrovent. 11. Perforomist. 12. Rocephin. 13. DuoNeb. 14. Tylenol. Culture results and reports are reviewed. The aspirates are positive for yeast; otherwise the rest of the cultures are negative. IMPRESSION: 1. Abdominal abscess, postoperative. 2. Severe chronic obstructive pulmonary disease, emphysema. 3. Pulmonary embolism. PLAN AND RECOMMENDATION: To continue antibiotics. Continue supportive care. Continue breathing treatments. Will lower down the Solu-Medrol to 20.
[2016-06-11] MEDS: LATANOPROST 0.005% OPHTH DROPS 2.5 ML BTL BOTH EYES SCH (20:36)
[2016-06-12] MEDS: metroNIDAZOLE 500 MG TAB PO SCH ×4 (01:12→23:29)
[2016-06-12] MEDS: IPRATROPIUM-ALBUTEROL 3 ML NEB INHALATION SCH ×4 (07:20→19:10)
[2016-06-12] MEDS: FORMOTEROL FUMARATE 20 MCG/2 ML NEBU INHALATION SCH ×2 (07:20→19:10)
[2016-06-12] MEDS: BUDESONIDE 1 MG/2 ML NEBU INHALATION SCH ×2 (07:20→19:09)
[2016-06-12] MEDS: ASPIRIN 81 MG CHEW PO SCH (08:08)
[2016-06-12] MEDS: HYDROcodone/APAP 7.5-325MG 1 EACH TAB PO PRN ×3 (08:08→21:51)
[2016-06-12] MEDS: PANTOPRAZOLE 40 MG TABLET PO SCH (08:09)
[2016-06-12] MEDS: METOCLOPRAMIDE 10 MG TAB PO SCH ×4 (08:09→21:44)
[2016-06-12] MEDS: predniSONE 20 MG TAB PO SCH (08:09)
[2016-06-12] MEDS: NICOTINE 21MG/24HR PATCH TRANSDERM SCH (08:09)
[2016-06-12] MEDS: carBAMazepine 200 MG TAB PO SCH ×2 (08:09→21:44)
[2016-06-12] MEDS: NADOLOL 20 MG TAB PO SCH ×2 (08:09→21:44)
[2016-06-12] MEDS: MICAFUNGIN 100 MG in SODIUM CHLORIDE 0.9% 100 ML IVPB SCH (08:21)
[2016-06-12] MEDS: VERAPAMIL 80 MG TAB PO SCH ×3 (08:25→21:44)
[2016-06-12] MEDS: DEXTROSE 5%-0.45% NACL 1,000 ML IV SCH ×2 (09:19→16:59)
[2016-06-12] MEDS: cefTRIAXone 2,000 MG in SODIUM CHLORIDE 0.9% 100 ML IVPB SCH (09:20)
--- NOTE | 2016-06-12 11:49 | P.PN ---
Subjective 55-year-old male being seen on rounds this morning is currently sitting up in bed states anxious to be discharged denying any dizziness lightheadedness chest pain or shortness of breath. Patient states pain medication has been effective for pain control patient states there's less abdominal pain tolerating a diet patient states he also did participated in taking care of his ostomy this morning there was a moderate amount of stool in the ostomy bag Patient is status post fine-needle aspiration of a small intra-abdominal fluid collection within the left abdomen done on June 10. Patient is status post sigmoid colectomy with end colostomy for perforated diverticulitis patients being treated for initial presentation of shortness of breath felt to be multifactorial due to left lower lobe pulmonary emboli with decompensated congestive heart failure systolic dysfunction with an acute exacerbation of COPD. Patient was started on Xarelto with recommendations of pulmonology and over the course of the hospitalization the symptoms in regards to the shortness of breath significantly improved Objective - Vital Signs Vital signs: Vital Signs Temp 97.9 F 06/12/16 07:00 Pulse 84 06/12/16 11:20 Resp 16 06/12/16 08:00 BP 133/81 06/12/16 07:00 Pulse Ox 94 L 06/12/16 07:21 Intake & Output 06/11/16 06/12/16 06/12/16 18:59 06:59 18:59 Output Total 200 Balance -200 Output: Stool 200 Other: Voiding Method Toilet Toilet Toilet Urinal Urinal Urinal - Exam Physical exam 55-year-old male resting comfortably in bed states has been up ambulating in the hallway denying dizziness lightheadedness or chest pain or shortness of breath states abdominal discomfort on the left abdominal wall has improved Lungs essentially clear on room air no wheezing rail rhonchi Heart S1-S2 audible regular Abdomen ostomy left lower quadrant scant amount of stool noted in the ostomy bag patient stated that he did empty the ostomy earlier there was a moderate amount of formed stool states urinating no difficulty reports no decline in appetite no nausea vomiting Extremities no edema noted - Labs CBC & Chem 7: 06/11/16 06:59 06/11/16 06:59 Labs: Microbiology - Last 24 Hours (Table) 06/08/16 18:20 Urine Culture - Final Urine,Voided 06/10/16 09:19 Gram Stain - Preliminary Aspirate Body Fluid Culture - Preliminary Yeast species Assessment and Plan Plan: Impression : Present on admission shortness of breath multifactorial suspect due to left lower lobe pulmonary emboli with decompensated congestive heart failure systolic dysfunction with acute exacerbation COPD Subtherapeutic on INR 1.1 on admission Chronic hypoxic respiratory failure supplemental home O2 Chronic nicotine dependency Present on admission pleuritic chest pain suspect due to pulmonary emboli Acute exacerbation of COPD Acute on chronic hypoxic respiratory failure essential hypertension Echocardiogram done on May 29 show left ventricular systolic function mildly impaired EF between 45 and 50% Present on admission sinus tachycardic likely reactive Chronic debility due to comorbidities CT CAT scan of the chest shows emphysema Abdominal pain suspect due to perforated diverticulitis Status post June 03 sigmoid colectomy with end colostomy for perforated diverticulitis New-onset postop leukocytosis likely due to developing abdominal abscess as evident on a CAT scan of the abdomen pelvis Status post fine-needle aspiration of a small intra-abdominal fluid collection within the left abdomen interventional radiology done on June 10 Mild protein calorie malnutrition suspect due to poor caloric intake Plan postop surgical care per surgical service Pain control Xarelto 15 mg twice a day for 3 weeks then 20 mg daily for treatment of the pulmonary emboli surgery indicates okay 2 resume to Xarelto Resume home meds as appropriate Home care at the time of discharge to reinforce ostomy teaching Increase activity Await further recommendations by infectious disease to determine if PICC line as needed in anticipation of outpatient antibiotic DVT and GI prophylaxis The above dictated assessment and findings were discussed with dr ramirez Impression and the plan of care have been dictated as directed. Anastasia Garcia nurse practitioner acting as a scribe for dr ramirez
--- NOTE | 2016-06-12 15:58 | P.PN ---
Subjective Patient is a 55-year-old white male admitted for treatment of pneumonia and possible left lower lobe pulmonary embolus. Patient subsequently was evaluated for abdominal pain apparently present on admission with CAT scan showing free air with possible sigmoid colon diverticular perforation. Patient was taken for emergent sigmoid colectomy with end colostomy on 06/03/2016. Patient tolerated procedure well. Postoperatively, patient developed an abscess. Patient is status post CT-guided aspiration with cultures positive for group D enterococcus and Kinsey glabrata. Upon examination, patient complains of chronic low back pain and abdominal discomfort especially with movement. Patient reports abdominal pain is slowly getting better. Denies chills, fevers, nausea, vomiting, shortness of breath, or chest pain. Patient states he was able to empty his colostomy twice independently yesterday. Tolerating regular food. Urinating without difficulty. Afebrile. Objective - Vital Signs Vital signs: Vital Signs Temp 97.9 F 06/12/16 07:00 Pulse 87 06/12/16 15:36 Resp 16 06/12/16 08:00 BP 133/81 06/12/16 07:00 Pulse Ox 94 L 06/12/16 07:21 Intake & Output 06/11/16 06/12/16 06/12/16 18:59 06:59 18:59 Output Total 200 Balance -200 Output: Stool 200 Other: Voiding Method Toilet Toilet Toilet Urinal Urinal Urinal - Exam GENERAL: Pt awake and alert, well-appearing, well-nourished, and in no acute distress. ABDOMEN: Soft, mild right lower quadrant tenderness, nondistended, normoactive bowel sounds. No guarding, no rebound. No masses or organomegaly appreciated. Midline surgical incision dry, intact, partially closed with marlen, no erythema or purulent drainage. Left lower quadrant ostomy viable. Small amount of dark brown stool noted in colostomy bag. NEUROLOGICAL: Pt oriented x 3. PSYCH: Normal mood, normal affect. - Labs CBC & Chem 7: 06/11/16 06:59 06/11/16 06:59 Labs: Microbiology - Last 24 Hours (Table) 06/10/16 09:19 Gram Stain - Preliminary Aspirate Body Fluid Culture - Preliminary Group D Enterococcus Kinsey glabrata 06/08/16 18:20 Urine Culture - Final Urine,Voided Assessment and Plan Plan: Impression: 1. Perforated sigmoid colon diverticulitis status post sigmoid colectomy with end colostomy on 05/06/2016 status post postoperative abscess with CT-guided needle aspiration. Body fluid cultures with preliminary group D enterococcus and Kinsye glabrata. Plan: 1. Continue regular diet.. Continue antibiotics per infectious disease recommendations. Continue local wound care. Monitor ostomy. Continue supportive treatment and pain management. Continue incentive spirometry 10 times an hour while awake. Patient encouraged to shower. Continue to follow the medical team. Discharge per medicine. The above impression and plan have been discussed and directed by Dr. Estrella. Jing RECINOS acting as scribe for Dr. Estrella.
[2016-06-12] MEDS ORDERED: IV VANCOMYCIN PER PHARMACY 1 EACH MISC MISCELLANE PRN (16:47)
--- NOTE | 2016-06-12 19:05 | PN ---
DATE OF SERVICE: 06/12/2016 Mr. Jamil Tomlinson is a 55-year-old male, seen, evaluated, examined. Clinically, patient is doing well, remains on broad-spectrum antibiotics. The patient has FNA of the abscess has been performed. Results are pending, but some yeast has been isolated. From a steroid standpoint, doing well. The steroids have been lowered down to 20 mg. His last set of vitals include blood pressure is 133/81, respiratory rate 16, pulse rate 90, temperature 98, saturation 95% to 96%. HEENT: Otherwise unremarkable. NECK: Supple. LUNGS: Good air entry bilateral. HEART: Regular rate and rhythm. S1 and S2 audible. ABDOMEN: Soft. NEUROLOGICAL: Otherwise, awake and alert. Labs reviewed. Medications reviewed. IMPRESSION: 1. Abdominal abscess. 2. Perforated viscus related to acute diverticulosis and diverticulitis. 3. Severe chronic obstructive pulmonary disease, emphysema. 4. Pulmonary embolism. PLAN: As above. Continue antibiotics, breathing treatments, steroids. Continue supportive care. In next 48 to 72 hours, discontinue the prednisone as well. Continue supportive care.
[2016-06-12] MEDS: VANCOMYCIN 1,250 MG in SODIUM CHLORIDE 0.9% 250 ML IVPB SCH (19:23)
[2016-06-12] MEDS: LATANOPROST 0.005% OPHTH DROPS 2.5 ML BTL BOTH EYES SCH (21:46)
--- NOTE | 2016-06-12 22:02 | PN ---
DATE OF SERVICE: 06/12/2016 Reason for follow-up is possible abdominal abscess. INTERVAL HISTORY: The patient is afebrile. Has been breathing comfortably. Denies significant chest pain or shortness of breath. Abdominal pain has improved. No nausea, no vomiting. On examination, blood pressure is 133/81 with a pulse of 79, temperature one. He is 96% on room air. General description is a middle-age male lying in bed in no distress. RESPIRATORY SYSTEM: Unlabored breathing. Clear to auscultation anteriorly. HEART: S1, S2. Regular rate and rhythm. ABDOMEN: Soft, mildly tenderness in left side. No guarding or rigidity. Incision is clean. LABS: Hemoglobin 11.9, white count 13.9 with a BUN of 15, creatinine 0.62. The abdominal cultures showing a group D enterococcus and Kinsey glabrata. DIAGNOSTIC IMPRESSION AND PLAN: Patient with abdominal abscess. The patient did have a perforated sigmoid diverticulitis, status post diverting colostomy. Wound culture now showing enterococcus. We will add vancomycin, pharmacy to dose as the patient is allergic to penicillin and Unasyn could not be used. The patient to be continued on Micafungin to cover for the yeast as he could not take the Diflucan because of his drug interaction with Tegretol, Nicholls, and Xarelto. This was discussed and confirmed with the pharmacy. The patient will likely need a PICC line and IV antibiotic therapy on discharge. Continue supportive care.
[2016-06-12 22:10] VITALS: TEMP 97.9
[2016-06-13] MEDS: VANCOMYCIN 1,250 MG in SODIUM CHLORIDE 0.9% 250 ML IVPB SCH (06:02)
[2016-06-13] MEDS: HYDROcodone/APAP 7.5-325MG 1 EACH TAB PO PRN (06:07)
[2016-06-13] MEDS: DEXTROSE 5%-0.45% NACL 1,000 ML IV SCH ×2 (06:11→10:30)
[2016-06-13] MEDS: BUDESONIDE 1 MG/2 ML NEBU INHALATION SCH (07:19)
[2016-06-13] MEDS: FORMOTEROL FUMARATE 20 MCG/2 ML NEBU INHALATION SCH (07:19)
[2016-06-13] MEDS: IPRATROPIUM-ALBUTEROL 3 ML NEB INHALATION SCH ×2 (07:19→11:02)
[2016-06-13 07:35] VITALS: BP 144/88
[2016-06-13 07:46] VITALS: PULSE 84
[2016-06-13] MEDS: METOCLOPRAMIDE 10 MG TAB PO SCH ×2 (09:21→13:34)
[2016-06-13] MEDS: PANTOPRAZOLE 40 MG TABLET PO SCH (09:21)
[2016-06-13] MEDS: RIVAROXABAN 15 MG TAB PO SCH (09:22)
[2016-06-13] MEDS: metroNIDAZOLE 500 MG TAB PO SCH (09:22)
[2016-06-13] MEDS: ASPIRIN 81 MG CHEW PO SCH (09:22)
[2016-06-13] MEDS: cefTRIAXone 2,000 MG in SODIUM CHLORIDE 0.9% 100 ML IVPB SCH (09:23)
[2016-06-13] MEDS: NADOLOL 20 MG TAB PO SCH (09:23)
[2016-06-13] MEDS: carBAMazepine 200 MG TAB PO SCH (09:23)
[2016-06-13] MEDS: predniSONE 20 MG TAB PO SCH (09:24)
[2016-06-13] MEDS: NICOTINE 21MG/24HR PATCH TRANSDERM SCH (09:24)
[2016-06-13] MEDS: VERAPAMIL 80 MG TAB PO SCH (09:24)
[2016-06-13] MEDS: MICAFUNGIN 100 MG in SODIUM CHLORIDE 0.9% 100 ML IVPB SCH (10:32)
--- NOTE | 2016-06-13 13:56 | P.DS ---
Providers Date of admission: 05/29/16 14:04 Expected date of discharge: 06/13/16 Attending physician: Octaviano Ramirez Consults: 05/29/16 14:56 Consult Physician Stat Consulting Provider: Sumanth Fajardo Consult Reason/Comments: copd Do you want consulting provider notified?: Yes 05/29/16 17:39 Consult Physician Urgent Consulting Provider: Desiree Wilkerson Consult Reason/Comments: chest pain Do you want consulting provider notified?: Yes 06/02/16 20:05 Consult Physician Stat Consulting Provider: Dylan Estrella Consult Reason/Comments: Free fluid on abdomen/abdominal pain Do you want consulting provider notified?: Yes 06/03/16 12:52 Consult Physician Routine Consulting Provider: Victor Manuel Mcdonald Consult Reason/Comments: Perforated diverticulitis Do you want consulting provider notified?: Yes 06/08/16 12:38 Consult Physician Routine Consulting Provider: Victor Manuel Mcdonald Consult Reason/Comments: leukocytosis Do you want consulting provider notified?: Yes Primary care physician: Octaviano Ramirez [facility] Course: 55-year-old male who is initial presentation to the hospital on May 29 with a chief complaint of developing cough productive sputum pleuritic type chest pain. Patient had an elevated d-dimer had a CAT scan of the chest which did rule in for evidence of a left lower lobe pulmonary emboli. Patient does have a history of having previous bilateral pulmonary emboli as Patient subsequently was admitted with a cardiology consultation obtained patient had mild elevated troponin. Echocardiogram was ordered it showed mild hypokinesis with mild LV dysfunction the EF was between 45 and 50% the pleuritic chest pain was felt to be secondary to the pulmonary emboli consulting physicians to participate in the plan of care. Patient was started initially on IV heparin and switched over to Xarelto for the pulmonary emboli. The patient developed a new complaint of abdominal pain left lower quadrant. Patient had a CAT scan done which did show free air with possible sigmoid diverticuli perforation. Surgical consultation was requested. Since patient was started on Xarelto the Xarelto needed to be reversed this was addressed and patient did receive a dose of k centra. And on June 03 patient did undergo a urgent sigmoid colectomy with end colostomy. Patient was also followed by infectious disease and treated with the appropriate IV antibiotics. Postoperatively the patient did develop an abscess. Patient did undergo a fine- needle aspiration by interventional radiology. The cultures were positive for group d and donna glabrata. The decision per infectious disease was that the patient would need a PICC line would need at least a 2 week duration of IV daptomycin and micafungin as ordered in addition would need to be on Ceftin 500 twice a day as well as Flagyl 500 3 times a day for a 2 week duration. Additionally the culture did come back VRE and vancomycin could not be used. Ostomy education was provided patient did participate in ostomy care effectively time of discharge patient was felt to be hemodynamically stable from all consulting physicians and that the patient could be discharged home Impression : Present on admission shortness of breath multifactorial suspect due to left lower lobe pulmonary emboli with decompensated congestive heart failure systolic dysfunction with acute exacerbation COPD Episode of acute hypoxic respiratory failure resolved Subtherapeutic on INR 1.1 on admission Chronic hypoxic respiratory failure supplemental home O2 Chronic nicotine dependency Present on admission pleuritic chest pain suspect due to pulmonary emboli Acute exacerbation of COPD Acute on chronic hypoxic respiratory failure essential hypertension Echocardiogram done on May 29 show left ventricular systolic function mildly impaired EF between 45 and 50% Present on admission sinus tachycardic likely reactive Chronic debility due to comorbidities CT CAT scan of the chest shows emphysema Abdominal pain suspect due to perforated diverticulitis Status post June 03 sigmoid colectomy with end colostomy for perforated diverticulitis New-onset postop leukocytosis likely due to developing abdominal abscess as evident on a CAT scan of the abdomen pelvis Status post fine-needle aspiration of a small intra-abdominal fluid collection within the left abdomen interventional radiology done on June 10 Mild protein calorie malnutrition suspect due to poor caloric intake Body fluid cultures positive for group D enterococcus,enteroccus faecium VRE, donna glabrata History of a seizure disorder The above dictated assessment and findings were discussed with dr ramirez Impression and the plan of care have been dictated as directed. Anastasia Garcia nurse practitioner acting as a scribe for dr ramirez Plan - Discharge Summary New Discharge Prescriptions: Cefuroxime Axetil [Ceftin] 500 mg PO BID #28 tab DAPTOmycin [Cubicin] 500 mg IV Q24H #14 vial HYDROcodone/APAP 7.5-325MG [[place] 7.5-325] 1 tab PO BID PRN #30 tab PRN Reason: Pain Ipratropium-Albuterol Nebulize [Duoneb 0.5 mg-3 mg/3 ml Soln] 3 ml INHALATION RT -QID #120 ampul.neb Nadolol [Corgard] 20 mg PO BID #60 tab Nicotine 21Mg/24Hr Patch [Habitrol] 1 patch TRANSDERM DAILY #30 patch Rivaroxaban [Xarelto] 15 mg PO BID-W/MEALS #60 tab Verapamil [Isoptin] 120 mg PO TID #45 tab metroNIDAZOLE [Flagyl] 500 mg PO Q8HR #42 tab Discharge Medication List carBAMazepine [TEGretol] 200 mg PO BID 12/22/13 [History] Latanoprost [Xalatan 0.005%] 1 drop BOTH EYES HS 05/29/16 [History] Omeprazole 40 mg PO DAILY 05/29/16 [History] Aspirin 81 mg PO DAILY chew 06/13/16 [Rx] Cefuroxime Axetil [Ceftin] 500 mg PO BID #28 tab 06/13/16 [Rx] DAPTOmycin [Cubicin] 500 mg IV Q24H #14 vial 06/13/16 [Rx] Formoterol Fumarate [Perforomist] 20 mcg INHALATION RT-BID nebu 06/13/16 [Rx] HYDROcodone/APAP 7.5-325MG [[place] 7.5-325] 1 tab PO BID PRN #30 tab 06/13/16 [Rx ] Ipratropium-Albuterol Nebulize [Duoneb 0.5 mg-3 mg/3 ml Soln] 3 ml INHALATION RT -QID #120 ampul.neb 06/13/16 [Rx] Nadolol [Corgard] 20 mg PO BID #60 tab 06/13/16 [Rx] Nicotine 21Mg/24Hr Patch [Habitrol] 1 patch TRANSDERM DAILY #30 patch 06/13/16 [ Rx] Rivaroxaban [Xarelto] 15 mg PO BID-W/MEALS #60 tab 06/13/16 [Rx] Verapamil [Isoptin] 120 mg PO TID #45 tab 06/13/16 [Rx] metroNIDAZOLE [Flagyl] 500 mg PO Q8HR #42 tab 06/13/16 [Rx] Follow up Appointment(s)/Referral(s): Octaviano Ramirez MD [Primary Care Provider] - 06/19/16 2:15 pm [facility], [NON-STAFF] - As Needed [facility], [REFERRING] - As Needed Sumanth Fajardo MD [STAFF PHYSICIAN] - 06/23/16 2:45 pm Dylan Estrella MD [STAFF PHYSICIAN] - 06/19/16 3:30 pm Victor Manuel Mcdonald MD [STAFF PHYSICIAN] - 1 Week Patient Instructions/Handouts: How to Stop Smoking (GEN), Colostomy Care (DC), Colostomy Care (GEN), Cigarette Smoking and Your Health (GEN) Activity/Diet/Wound Care/Special Instructions: Kenneth for IV antibiotics-#[phone] First IV antibiotic administration scheduled for June 14 at 10am on Pediatric unit on 6th floor. Next administration on Thursday at 10am on Pediatric unit. All weekend administrations are given on the Pediatric unit on 6th floor. The following administration will be Thursday at 10am at [facility]. Colostomy Care Instructions for Home: Mr Tomlinson is to empty his colostomy bag over the toilet when it is 1/2 to 1/ 3 full. The entire ostomy pouch and wafer is to be changed every 3-5 days unless otherwise directed by your surgeon or Home Health care RN The current ostomy care supplies used at [facility] and going home with Mr Tomlinson as as follows: Last colostomy pouch and wafer change: 06.11.2016 Vasile Flange (wafer): #[id number] (Patient will have three for home) [facility] Pouch without filter: #[id number] (Patient will have three for home) Skin prep for around the stoma (apply prior to placing the flange) Patient will have 12 for home use Ostomy powder only to use if the skin around the stoma is irritated after the skin prep is used (prior to applying the wafer) Ostomy deodrant (Place a small amount in the bottom of the bag daily after emptying) Patient will also be receiving [employer] [facility] supplies from the company to his home after discharge for follow up with Home Health halfway care please establish Mr Tomlinson with a [employer] for his permanent colostomy supplies prior to discharging from services. He also is asking for precut flanges with disposable bags in 3 weeks Xarelto 15 mg twice a day for 3 weeks then taper to 20 mg daily for treatment of a pulmonary emboli iv micafungin 100mg daily for 2 weeks Discharge Disposition: HOME WITH HOME HEALTH SERVICES
[2016-06-13] MEDS ORDERED: DAPTOmycin 500 MG in SODIUM CHLORIDE 0.9% 50 ML IV SCH (14:00)
--- NOTE | 2016-06-13 16:37 | PN ---
DATE OF SERVICE: 06/13/2016 Mr. Tomlinson is a 55-year-old with perforated bowel and peridiverticular abscess. Also has pulmonary embolism and has been on Xarelto. ( ) results and reports from the body fluid and aspirate reveal enterococcus, which is VRE along with Kinsey glabrata. Currently patient is on DuoNeb unit dose 4 times a day, Pulmicort, also on Rocephin, daptomycin, Vasotec, Perforomist, Xalatan, Flagyl, micafungin, nicotine patch, prednisone 20 mg daily, Xarelto and ( ). Vitals include blood pressure is 144/88, respiratory rate 16, pulse 87, temperature 98, saturation of 98% on 2 liters oxygen. HEENT EXAMINATION: Otherwise unremarkable. NECK: Supple. LUNGS: Good air entry bilaterally. HEART: Regular rate and rhythm. ABDOMEN: Soft. NEUROLOGICAL EXAMINATION: Otherwise, awake and alert. Labs reviewed. Medications reviewed. IMPRESSION AND PLAN: As dictated above. 1. Abdominal abscess related to Kinsey glabrata as well as vancomycin-resistant enterococcus. Patient is on broad-spectrum antibiotics as well as antifungal agent. Infectious Disease service is following. 2. Pulmonary embolism on Xarelto. 3. Severe chronic obstructive pulmonary disease, emphysema. Continue to taper down the steroids, currently on 20 mg. Will stop the prednisone and monitor patient off of prednisone now. Continue breathing treatments, deep breathing exercises and incentive spirometry. Increase activity as tolerated.
--- NOTE | 2016-06-13 18:09 | PN ---
DATE OF SERVICE: 06/13/2016 REASON FOR FOLLOWUP: Abdominal abscess, polymicrobial. INTERVAL HISTORY: The patient is afebrile. He has been breathing comfortably. The patient denies significant chest pain, shortness of breath or cough. No significant abdominal pain. No nausea, vomiting or any diarrhea. On examination, blood pressure is 144/88 with a pulse of 87, temperature 97.9. He is 98% on 2 L nasal cannula. General description is a middle-aged male lying in bed in no distress. RESPIRATORY SYSTEM: Unlabored breathing. Clear to auscultation anteriorly. HEART: S1, S2. Regular rate and rhythm. ABDOMEN: Soft. Slightly distended. No guarding or rigidity. Incision is clean. LABS: No new labs have been obtained today. The abdominal aspiration culture has been finalized now with VRE, Kinsey glabrata and enterococcus group D. DIAGNOSTIC IMPRESSION AND PLAN: Patient with polymicrobial abdominal abscess in a patient who did have ruptured diverticulitis, status post diverting colostomy. Antibiotic has been adjusted to daptomycin 6 mg/kg in addition to the micafungin 100 mg IV piggyback daily for 2 weeks in addition to the oral Ceftin and Flagyl for another 10 days. Patient will be followed up closely in the outpatient setting. All his questions and concerns were answered. His prescriptions were written.
--- NOTE | 2016-06-16 14:21 | IR ---
EXAMINATION TYPE: IR cvc insert >=5 years DATE OF EXAM: 06/13/2016 10:44 AM COMPARISON: NONE CLINICAL HISTORY: Infection Needs long-term intravenous access for antibiotics. PROCEDURE: After informed consent, the skin overlying the left basilic vein was localized with ultrasound and no diego to be compressible and patent. An ultrasound image was obtained and submitted on the patient's c urias. The overlying skin was prepped and draped and Lidocaine was used for local anesthesia. A skin yoli was made with a scalpel. Access was gained to the vein under ultrasound guidance with a 21 gau ge needle and a 0.018 inch wire was advanced. Access site was dilated with Peel-Away sheath and cath eter tailored to the appropriate length and advanced such that the distal tip is at the cavoatrial ju nction. Spot image was obtained verifying placement. Catheter was fixed to the skin with suture and a sterile dressing was placed following hemostasis. Catheter was aspirated and flushed with saline. Patient was discharged in stable condition without complication. Maximal barrier technique is utili zed. Ultrasound image is documented on the chart. Ultrasound used with sterile technique. Fluoro time and fluoroscopic images submitted to document procedure: 5 intraoperative C-arm images, 0 .1 minutes fluoroscopy time IMPRESSION: STATUS POST ULTRASOUND AND FLUOROSCOPIC GUIDED PICC LINE PLACEMENT, READY FOR USE. THIS PROCEDURE WAS PERFORMED BY THE UNDERSIGNED.
== END 2016-06-13 16:35 | disposition home health service (06) | DRG 981 ==
LOC: 5MS5E 14:04 → 6SEL 05-30 18:58 → 6ICU 06-03 10:58 → 5MS5E 06-04 14:05
PROVIDERS: ADMIT Family Medicine; ATTEND Family Medicine
PROC: 0D1N0Z4 Bypass Sigmoid Colon to Cutaneous, Open Approach (ICD-10-PCS; 2016-06-03)
PROC: 0DBN0ZZ Excision of Sigmoid Colon, Open Approach (ICD-10-PCS; principal; 2016-06-03 12:00)
PROC: 0W9G3ZX Drainage of Peritoneal Cavity, Percutaneous Approach, Diagnostic (ICD-10-PCS; 2016-06-10)
DX: I26.99 Other pulmonary embolism without acute cor pulmonale (principal); I50.23 Acute on chronic systolic (congestive) heart failure; J96.21 Acute and chronic respiratory failure with hypoxia; J44.0 Chronic obstructive pulmonary disease with (acute) lower respiratory infection; K57.20 Diverticulitis of large intestine with perforation and abscess without bleeding; E44.1 Mild protein-calorie malnutrition; J44.1 Chronic obstructive pulmonary disease with (acute) exacerbation; I11.0 Hypertensive heart disease with heart failure; F17.200 Nicotine dependence, unspecified, uncomplicated; J20.9 Acute bronchitis, unspecified; G89.29 Other chronic pain; D64.9 Anemia, unspecified; B37.9 Candidiasis, unspecified; H40.9 Unspecified glaucoma; G43.909 Migraine, unspecified, not intractable, without status migrainosus; G40.909 Epilepsy, unspecified, not intractable, without status epilepticus; M19.91 Primary osteoarthritis, unspecified site; H93.13 Tinnitus, bilateral; Z99.81 Dependence on supplemental oxygen; Z88.0 Allergy status to penicillin; Z88.1 Allergy status to other antibiotic agents; Z86.718 Personal history of other venous thrombosis and embolism; Z86.73 Personal history of transient ischemic attack (TIA), and cerebral infarction without residual deficits; Z86.711 Personal history of pulmonary embolism; Z79.01 Long term (current) use of anticoagulants; Z79.899 Other long term (current) drug therapy
CPT/HCPCS: 10022; 36569; 71020; 71260; 74020; 74177; 76700; 76937; 77001; 77012; 80048; 80053; 81003; 82150; 83605; 83690; 83735; 84484; 85025; 85379; 85610; 85730; 87040; 87070; 87075; 87077; 87086; 87186; 87205; 87502; 88307; 93005; 93306; 94640; 94760

== ENCOUNTER → 2016-07-01 | Outpatient (CLI) | payer MEDICARE ==
--- NOTE | 2016-07-01 15:10 | CT ---
EXAMINATION TYPE: CT abdomen pelvis wo con DATE OF EXAM: 07/01/2016 2:57 PM COMPARISON: NONE HISTORY: abdominal abscess CT DLP: 288.1 mGycm FINDINGS: LUNG BASES: No evidence for nodule. No evidence for infiltrate. LIVER/GB: The gallbladder is unremarkable. No space-occupying hepatic lesion. PANCREAS: No pancreatic mass identified. No inflammatory process seen. SPLEEN: No evidence for splenomegaly. No intrasplenic lesions seen. ADRENALS: No adrenal nodules identified. No evidence for thickening. KIDNEYS: No evidence for renal mass. No nephrolithiasis. No hydronephrosis. BOWEL: There is a small residual collection adjacent to the descending colon at its lateral wall crystal uring 3.1 x 2.4 cm both reflect residual abscess. Additional other smaller abscesses seen previously have essentially resolved. No evidence for new abscess. Significant improvement in inflammatory proce ss. No evidence for perforation at this time. Interval changes of diverticulitis colostomy. Small bow el is of normal caliber. Appendix has a normal appearance. No evidence of bowel obstruction. No infla mmatory process. Lymph nodes: No evidence for adenopathy greater than 1 cm. Abdominal aorta: Atheromatous changes seen. No evidence for aneurysm. Genital organs: No significant abnormality. Other: Fat-containing inguinal hernias. IMPRESSION: 1. SMALL RESIDUAL ABSCESS ADJACENT TO THE DESCENDING COLON DISCUSSED WITH ADDITIONAL SMALLER ABSCE SSES SEEN PREVIOUSLY NOTED TO HAVE RESOLVED. IMPROVED INFLAMMATORY PROCESS. DIVERTING COLOSTOMY IS NO PARI.
== END ==
LOC: RADCTMAIN 12:57
PROVIDERS: ATTEND Internal Medicine Infectious Disease
DX: K63.0 Abscess of intestine (principal)
CPT/HCPCS: 74176

== ENCOUNTER → 2016-07-10 | Outpatient (CLI) | payer MEDICARE ==
--- NOTE | 2016-07-10 14:27 | CT ---
EXAMINATION TYPE: CT abdomen pelvis wo con DATE OF EXAM: 07/10/2016 1:38 PM COMPARISON: 07/01/2016 HISTORY: 55-year-old male follow-up abdominal abscess. CT DLP: 295.4 mGycm. Automated exposure control for dose reduction was used. TECHNIQUE: Contiguous axial scanning of the abdomen and pelvis without IV contrast. Coronal and sagit opal reconstructions performed. FINDINGS: Heart is normal size without pericardial effusion. Lung bases clear without pleural effusion. Moderate atherosclerotic calcifications within the abdominal aorta and iliac arteries without aneurys m. Noncontrast appearance of the liver, gallbladder, adrenal glands, kidneys, spleen, and pancreas show no gross abnormal. No dilated small bowel, free fluid, or free air. Postsurgical changes along the anterior abdominal wall. Some liquid stool seen within the ascending colon. Minimal scattered stool is present otherwise. Nor mal appendix. Diverticulosis along the descending colon again noted with focal low-density thickening along the lef t lateral aspect of the mid to lower descending colon abutting the inner margin of the left lateral a bdominal wall musculature. This has decreased in size now measuring 1.2 x 2.2 cm versus 2.4 x 3.1 cm on 07/01/2016, 9 days prior. Some adjacent residual inflammatory stranding is also stable to slightly improved just inferiorly at the descending sigmoid junction. Post surgical changes left lower quadrant sigmoid colostomy. There has been Youssef's pouch formation . No mesenteric or retroperitoneal lymphadenopathy. Bladder partially distended. Prostate gland is enlarged at 5.2 cm wide with central calcifications. N o abnormal fluid collection in the pelvis. Bones: Mild degenerative changes at the hips. Additional degenerative changes lower lumbar spine. No osseous destructive process. IMPRESSION: 1. Status post left lower quadrant sigmoid colostomy and Youssef's pouch formation. 2. Residual tiny abscess versus phlegmon along the left lateral mid to lower descending colon shows progressive decrease in size now measuring 2.2 x 1.2 cm versus 3.1 x 2.4 cm, 9 days prior. 3. Left-sided diverticulosis and prostatomegaly.
== END | disposition home or self-care (01) ==
LOC: RADCTMAIN 11:51
PROVIDERS: ATTEND Internal Medicine Infectious Disease
DX: K57.90 Diverticulosis of intestine, part unspecified, without perforation or abscess without bleeding (principal); N40.0 Benign prostatic hyperplasia without lower urinary tract symptoms; Z93.3 Colostomy status
CPT/HCPCS: 74176

== ENCOUNTER 2016-08-27 10:10 | Day surgery (SDC) | payer MEDICARE ==
[2016-08-25 09:03] VITALS: BMI 22.1
[~2016-08-27 10:10] MED LIST: LACTATED RINGERS 1,000 ML IV SCH; LIDOCAINE 1% 20 ML VIAL (10MG/ML) FOR IV START INTRADERMA PRN
[2016-08-27 10:27] VITALS: RESP 16
[2016-08-27 11:36] LABS: Glucose,Whole Blood 82 mg/dL (75-99)
[2016-08-27 12:01] LABS: CH 31.4; CHCM 33.3; HCT 40.9 % (39.0-53.0); HDW 2.26; HGB 13.6 gm/dL (13.0-17.5); MCH 31.5 pg (25.0-35.0); MCHC 33.3 g/dL (31.0-37.0); MCV 94.7 fL (80.0-100.0); Mean Platelet Volume 7.2; RBC 4.32 m/uL (4.30-5.90); RDW 13.2 % (11.5-15.5)
[2016-08-27 12:28] LABS: Potassium 4.7 mmol/L (3.5-5.1)
[2016-08-27 12:40] LABS: INR 1.6 (<1.1); Prothrombin Time 15.7 sec (9.0-12.0)
[2016-08-27] MEDS ORDERED: PROPOFOL 10 MG/ML 20 ML VIAL IV ONE (13:06)
--- NOTE | 2016-08-27 13:12 | P.GSHP ---
History of Present Illness H&P Date: 08/27/16 Chief Complaint: History of perforated diverticulitis This a 55-year-old male who presents today for colonoscopy. Patient has history of previous perforated diverticulitis with colostomy. Patient is undergoing colonoscopy today he is planned for reversal of colostomy tomorrow. - Constitutional Constitutional: Reports as per HPI Past Medical History Past Medical History: COPD, Deep Vein Thrombosis (DVT), Eye Disorder, GI Bleed, Hypertension, Osteoarthritis (OA), Pneumonia, Pulmonary Embolus (PE), Respiratory Disorder, Seizure Disorder Additional Past Medical History / Comment(s): Respiratory failure with O2 at 2l , tracheobronchitis, pleurisy, bollous lung disease, bilateral pulmonary embolus , last SEIZURE 2015, PERFORATED ULCER 2005 , R leg DVT, CHRONIC BACK PAIN, DDD/ DJD, TIA, MIGRAINES, bilateral TINNITUS, WAS TOLD 20 YEARS AGO HE HAD ALCOHOLIC HEPATITIS, bilateral GLAUCOMA, History of Any Multi-Drug Resistant Organisms: None Reported Past Surgical History: Bowel Resection, Hernia Repair, Orthopedic Surgery Additional Past Surgical History / Comment(s): ulcer repair, EGD/COLONOSCOPY,, JOSIAH KNEE ARTHROSCOPY, abdominal hernia repair. 05/2016 bowel resection with colostomy Past Anesthesia/Blood Transfusion Reactions: Motion Sickness Past Psychological History: Depression Additional Psychological History / Comment(s): . Smoking Status: Current every day smoker Past Alcohol Use History: Occasional Additional Past Alcohol Use History / Comment(s): Pt states he started smoking as a teen and smoking 6-7 cigarettes daily. He states he has hx of alcoholism - last 9 weeks ago Past Drug Use History: None Reported - Past Family History Sister(s) Family Medical History: Cancer Additional Family Medical History / Comment(s): SKIN CANCER Mother Family Medical History: Cancer Additional Family Medical History / Comment(s): BREAST Father Additional Family Medical History / Comment(s): YELLOW JAUNDICE, MALARIA FROM WW2, EMPHYSEMA Brother(s) Family Medical History: Cancer Additional Family Medical History / Comment(s): SKIN Medications and Allergies Home Medications Medication Instructions Recorded Confirmed Type carBAMazepine [TEGretol] 200 mg PO QAM 12/22/13 08/27/16 History Latanoprost [Xalatan 0.005%] 1 drop BOTH EYES HS 05/29/16 08/27/16 History Omeprazole 40 mg PO DAILY PRN 05/29/16 08/27/16 History Albuterol Nebulized [Ventolin 2.5 mg INHALATION BID 08/25/16 08/27/16 History Nebulized] Atenolol [Tenormin] 50 mg PO BID 08/25/16 08/27/16 History Magnesium 200 mg PO DAILY 08/25/16 08/27/16 History Warfarin [Coumadin] 7.5 mg PO DAILY 08/25/16 08/27/16 History Allergies Allergy/AdvReac Type Severity Reaction Status Date / Time varenicline tartrate Allergy Intermediate Rash/Hives Verified 08/27/16 10:17 [From Chantix] ampicillin Allergy Rash/Hives Verified 08/27/16 10:17 Surgical - Exam Vital Signs Temp Pulse Resp BP Pulse Ox 97. F L 108 H 16 135/79 96 08/27/16 10:26 08/27/16 10:26 08/27/16 10:26 08/27/16 10:26 08/27/16 10:26 - General well developed, well nourished, no distress - Eyes PERRL - ENT normal pinna - Neck no masses - Respiratory normal expansion - Cardiovascular Rhythm: regular - Abdomen Abdomen: soft, non tender (Colostomy left lower quadrant) Results - Labs 08/27/16 11:33 08/27/16 11:33 Abnormal Lab Results - Last 24 Hours (Table) 08/27/16 Range/Units 11:33 PT 15.7 H (9.0-12.0) sec Diabetes panel 08/27/16 Range/Units 11:33 Sodium 143 (137-145) mmol/L Potassium 4.7 (3.5-5.1) mmol/L Chloride 104 (98-107) mmol/L Carbon Dioxide 25 (22-30) mmol/L Pituitary panel 08/27/16 Range/Units 11:33 Sodium 143 (137-145) mmol/L Potassium 4.7 (3.5-5.1) mmol/L Chloride 104 (98-107) mmol/L Carbon Dioxide 25 (22-30) mmol/L Adrenal panel 08/27/16 Range/Units 11:33 Sodium 143 (137-145) mmol/L Potassium 4.7 (3.5-5.1) mmol/L Chloride 104 (98-107) mmol/L Carbon Dioxide 25 (22-30) mmol/L Assessment and Plan Plan: History of perforated diverticulitis. Patient will undergo colonoscopy today.
--- NOTE | 2016-08-27 13:35 | P.OP ---
Date of Procedure: 08/27/16 Preoperative Diagnosis: History of perforated diverticulitis Postoperative Diagnosis: Diverticulosis Procedure(s) Performed: Colonoscopy Implants: Anesthesia: MAC Surgeon: Dylan Estrella Pathology: none sent Condition: stable Disposition: PACU Indications for Procedure: Operative Findings: Description of Procedure: Patient's placed on the endoscopy table in the lateral position. He received IV sedation. Digital rectal exam was performed which revealed a few external hemorrhoids. The flexible colonoscope was then placed patient anus and passed throughout rectal stump. The stump was measured approximately 24 cm. Scope was withdrawn. There were no polyps or tumors seen. Next the patient was rotated in his back in then the colonoscopy was completed via the colostomy. The scope was placed into the colostomy and passed throughout the entire colon. The ileocecal valve was visualized. Cecum, ascending and transverse colon appeared normal. In the descending colon there was evidence of diverticular changes. There is known to diverticulitis. The scope was then withdrawn.
[2016-08-27] MEDS ORDERED: LACTATED RINGERS 1,000 ML IV ONE (13:37)
[2016-08-27 13:56] VITALS: BP 114/76; PULSE 104
== END 2016-08-27 14:34 | disposition home or self-care (01) ==
LOC: ORWHC2ENDO 10:10
PROVIDERS: ATTEND Surgery
DX: K57.32 Diverticulitis of large intestine without perforation or abscess without bleeding (principal); K64.4 Residual hemorrhoidal skin tags; J44.9 Chronic obstructive pulmonary disease, unspecified; G40.909 Epilepsy, unspecified, not intractable, without status epilepticus; F17.200 Nicotine dependence, unspecified, uncomplicated; K21.9 Gastro-esophageal reflux disease without esophagitis; Z79.01 Long term (current) use of anticoagulants; Z79.82 Long term (current) use of aspirin; Z79.891 Long term (current) use of opiate analgesic; Z79.899 Other long term (current) drug therapy; Z90.49 Acquired absence of other specified parts of digestive tract; Z88.0 Allergy status to penicillin; Z88.8 Allergy status to other drugs, medicaments and biological substances
CPT/HCPCS: 80051; 85027; 85610; 44388; 45330; J2704; 44389; 45378

== ENCOUNTER 2016-08-28 08:19 | Inpatient (IN) | payer MEDICARE ==
[2016-08-25 08:36] VITALS: BMI 22.1
[~2016-08-28 08:19] MED LIST changes: +DEXAMETHASONE SOD PHOSPHATE 10 MG/ML 1 ML VIAL IV ONE; +HEPARIN SODIUM,PORCINE 5,000 UNIT/ML 1 ML VIAL SQ ONE; -LACTATED RINGERS 1,000 ML IV SCH; -LIDOCAINE 1% 20 ML VIAL (10MG/ML) FOR IV START INTRADERMA PRN; +MIDAZOLAM 2 MG/2 ML VIAL IV PRN; +ONDANSETRON 4 MG/2 ML VIAL IVP ONE; +ceFAZolin 2 GM in SODIUM CHLORIDE 0.9% 100 ML IVPB ONE; +metroNIDAZOLE-NS PMX 500 MG in SALINE 1 100ML.BAG IVPB ONE
--- NOTE | 2016-08-28 10:14 | XR ---
EXAMINATION TYPE: XR chest 1V DATE OF EXAM: 08/28/2016 CLINICAL HISTORY: Central line placement . TECHNIQUE: Single AP portable frontal view of the chest is obtained. COMPARISON: Chest x-ray from June 09, 2016 FINDINGS: There is right internal jugular central venous catheter with tip in SVC. There is backgrou nd chronic emphysematous change. There is no suspicious new focal airspace opacity, pleural effusion, or pneumothorax seen bilaterally currently. Cardiac silhouette size is within normal limits with ath erosclerotic thoracic aorta. Osseous structures are intact. IMPRESSION: New right internal jugular central venous catheter with tip in SVC. No evidence of sizabl e pneumothorax.
[2016-08-28 10:18] LABS: INR 1.4 (<1.1); Prothrombin Time 13.5 sec (9.0-12.0)
[2016-08-28] MEDS: LACTATED RINGERS 1,000 ML IV SCH (10:25)
[2016-08-28] MEDS ORDERED: METOPROLOL TARTRATE 5 MG/5 ML VIAL IVP ONE ×2 (10:25→12:37)
--- NOTE | 2016-08-28 12:01 | P.GSHP ---
History of Present Illness H&P Date: 08/28/16 Chief Complaint: History of perforated diverticulitis with colostomy [employer] 55-year-old male who presents today for reversal colostomy. Patient had a previous history of perforated diverticulitis with abscess and subsequent Feliciano procedure. Patient is a safer reversal colostomy. Past Medical History Past Medical History: COPD, Deep Vein Thrombosis (DVT), Eye Disorder, GI Bleed, Hypertension, Osteoarthritis (OA), Pneumonia, Pulmonary Embolus (PE), Respiratory Disorder, Seizure Disorder Additional Past Medical History / Comment(s): Respiratory failure with O2 at 2l , tracheobronchitis, pleurisy, bollous lung disease, bilateral pulmonary embolus , last SEIZURE 2015, PERFORATED ULCER 2005 , R leg DVT, CHRONIC BACK PAIN, DDD/ DJD, TIA, MIGRAINES, bilateral TINNITUS, WAS TOLD 20 YEARS AGO HE HAD ALCOHOLIC HEPATITIS, bilateral GLAUCOMA, History of Any Multi-Drug Resistant Organisms: None Reported Past Surgical History: Bowel Resection, Hernia Repair, Orthopedic Surgery Additional Past Surgical History / Comment(s): ulcer repair, EGD/COLONOSCOPY,, JOSIAH KNEE ARTHROSCOPY, abdominal hernia repair. 05/2016 bowel resection with colostomy Past Anesthesia/Blood Transfusion Reactions: Motion Sickness Past Psychological History: Depression Additional Psychological History / Comment(s): . Smoking Status: Current every day smoker Past Alcohol Use History: Occasional Additional Past Alcohol Use History / Comment(s): Pt states he started smoking as a teen and smoking 6-7 cigarettes daily. He states he has hx of alcoholism - last 9 weeks ago Past Drug Use History: None Reported - Past Family History Sister(s) Family Medical History: Cancer Additional Family Medical History / Comment(s): SKIN CANCER Mother Family Medical History: Cancer Additional Family Medical History / Comment(s): BREAST Father Additional Family Medical History / Comment(s): YELLOW JAUNDICE, MALARIA FROM WW2, EMPHYSEMA Brother(s) Family Medical History: Cancer Additional Family Medical History / Comment(s): SKIN Medications and Allergies Home Medications Medication Instructions Recorded Confirmed Type carBAMazepine [TEGretol] 200 mg PO QAM 12/22/13 08/27/16 History Latanoprost [Xalatan 0.005%] 1 drop BOTH EYES HS 05/29/16 08/27/16 History Omeprazole 40 mg PO DAILY PRN 05/29/16 08/27/16 History Albuterol Nebulized [Ventolin 2.5 mg INHALATION BID 08/25/16 08/27/16 History Nebulized] Atenolol [Tenormin] 50 mg PO BID 08/25/16 08/27/16 History Magnesium 200 mg PO DAILY 08/25/16 08/27/16 History Warfarin [Coumadin] 7.5 mg PO DAILY 08/25/16 08/27/16 History Allergies Allergy/AdvReac Type Severity Reaction Status Date / Time varenicline tartrate Allergy Intermediate Rash/Hives Verified 08/28/16 08:46 [From Chantix] ampicillin Allergy Rash/Hives Verified 08/28/16 08:46 Surgical - Exam Vital Signs Temp Pulse Resp BP Pulse Ox 97.0 F L 113 H 16 126/85 97 08/28/16 08:50 08/28/16 08:50 08/28/16 08:50 08/28/16 08:50 08/28/16 08:50 - General well developed, no distress - Eyes PERRL - ENT normal pinna - Neck no masses - Respiratory normal expansion - Cardiovascular Rhythm: regular - Abdomen Colostomy left lower quadrant Abdomen: soft, non tender Results - Labs Abnormal Lab Results - Last 24 Hours (Table) 08/28/16 Range/Units 10:06 PT 13.5 H (9.0-12.0) sec Assessment and Plan Plan: History of perforated diverticula is. We'll perform reversal of colostomy. Patient with surgery including bleeding, infection and possible recurrent colostomy.
[2016-08-28] MEDS ORDERED: PHENYLEPHRINE-0.9% NACL SYG 1 MG/10 ML SYRINGE ONE (12:37)
[2016-08-28] MEDS ORDERED: MIDAZOLAM 2 MG/2 ML VIAL ONE (12:37)
[2016-08-28] MEDS ORDERED: SUCCINYLCHOLINE CHLORIDE 100 MG/5 ML SYR IV ONE (12:37)
[2016-08-28] MEDS ORDERED: HYDROmorphone (PF) 1 MG/ML ONE (12:37)
[2016-08-28] MEDS ORDERED: LIDOCAINE 1% INJ 10MG/ML (20 ML MDV) ONE (12:37)
[2016-08-28] MEDS ORDERED: ROCURONIUM BROMIDE 10 MG/ML 10 ML VIAL IV ONE (12:37)
[2016-08-28] MEDS ORDERED: GLYCOPYRROLATE 0.2 MG/ML 2 ML VIAL ONE (12:37)
[2016-08-28] MEDS ORDERED: fentaNYL (PF) 50 MCG/ML 2 ML AMP ONE (12:37)
[2016-08-28] MEDS ORDERED: NEOSTIGMINE 1 MG/ML 10 ML VIAL ONE (12:37)
[2016-08-28] MEDS ORDERED: PROPOFOL 10 MG/ML 20 ML VIAL IV ONE (12:37)
[2016-08-28] MEDS ORDERED: METOCLOPRAMIDE 5 MG/ML 2 ML VIAL IVP PRN (14:22)
[2016-08-28] MEDS ORDERED: ONDANSETRON 4 MG/2 ML VIAL IVP PRN (14:22)
--- NOTE | 2016-08-28 14:29 | P.OP ---
Date of Procedure: 08/28/16 Preoperative Diagnosis: History of perforated diverticulitis Postoperative Diagnosis: History of perforated diverticulitis Procedure(s) Performed: Reversal of colostomy Takedown splenic flexure Partial greater omentectomy Implants: Anesthesia: YOLANDA Surgeon: Dylan Estrella Estimated Blood Loss (ml): 100 Pathology: other (Colon, greater omentum) Condition: stable Disposition: PACU Indications for Procedure: Operative Findings: Description of Procedure: The patient's placed on the operative table in supine position. He received general anesthesia. He was placed in dorsal lithotomy position. His abdomen was prepped and draped usual sterile fashion. The abdomen was entered through midline incision and Ezio wound care per and we the Bookwalter retractors placed a wound. The colostomy was then taken at the fascial lever level with a GI stapler. This point the adhesions to the colon were lysed and then the white line of Toldt was divided in the left colon was mobilized. This for flexure was also mobilized by dividing the splenorenal attachments once the colon was mobilized. A pursestring was placed across the distal colon and the pursestring was fired colon was opened and then a 25 mm EEA anvil was placed in the colon. The first and was secured. Next the rectal stump was seen. And then the EEA stapler was placed into the rectal stump and then the stomach like was driven through the rectal stump anterior wall. The anvil was connected to the spike of the stapler the stapler is then closed and fired. The stapler was then withdrawn. A hydro-graft placed across the proximal colon and then the rectum was insufflated with air via a rigid sigmoidoscope. There is no extravasation of air. The abdomen was irrigated. There was some bleeding seen from the omentum and this small segment of omentum was resected using the LigaSure. The omentum was visualized is no bleeding seen. The abdomen was irrigated. The fascia was then closed loop #1 PDS suture. Skin was closed with marlen. The colostomy site was then removed by dividing the mucocutaneous junction with electrocautery and then the right colostomy stump was excised. The fascia was closed with 0 Vicryl suture. Skin was closed marlen a [place] drains placed into the subcutaneous tissue prior to skin closure. Patient was sent to recovery room stable condition.
[2016-08-28] MEDS: HYDROmorphone 1 MG/ML 1 ML SYRINGE IVP PRN ×5 (14:42→22:35)
[2016-08-28] MEDS ORDERED: HYDROcodone/APAP 7.5-325MG 1 EACH TAB PO PRN (15:31)
[2016-08-28] MEDS ORDERED: PANTOPRAZOLE 40 MG TABLET PO PRN (15:31)
[2016-08-28] MEDS: D5-0.45% NACL WITH KCL 20MEQ/L 1,000 ML IV SCH ×2 (16:45→22:36)
[2016-08-28] MEDS: ALBUTEROL NEBULIZED 2.5 MG/3 ML INHALATION SCH (19:54)
[2016-08-28] MEDS: ATENOLOL 50 MG TAB PO SCH (20:24)
[2016-08-28] MEDS: LATANOPROST 0.005% OPHTH DROPS 2.5 ML BTL BOTH EYES SCH (20:24)
[2016-08-28] MEDS: FAMOTIDINE 20 MG/2 ML VIAL IV SCH (20:24)
[2016-08-29] MEDS: D5-0.45% NACL WITH KCL 20MEQ/L 1,000 ML IV SCH ×3 (05:43→21:04)
[2016-08-29] MEDS: HYDROmorphone 1 MG/ML 1 ML SYRINGE IVP PRN ×2 (05:44→22:49)
[2016-08-29] MEDS: LACTATED RINGERS 1,000 ML IV SCH (07:20)
[2016-08-29] MEDS: ALBUTEROL NEBULIZED 2.5 MG/3 ML INHALATION SCH ×2 (07:26→19:06)
[2016-08-29 07:31] LABS: Basophils % (A) 0 %; CH 31.2; Eosinophils % (A) 0 %; HCT 36.2 % (39.0-53.0); HGB 11.6 gm/dL (13.0-17.5); Luc # (Auto) 0.14; Luc % (Auto) 2; Lymphocytes # (A) 1.1 k/uL (1.0-4.8); Lymphocytes % (A) 13 %; MCH 31.4 pg (25.0-35.0); MCHC 32.1 g/dL (31.0-37.0); MCV 97.8 fL (80.0-100.0); Mean Platelet Volume 7.1; Monocytes # (A) 0.5 k/uL (0-1.0); Monocytes % (A) 6 %; Neutrophils # (A) 6.8 k/uL (1.3-7.7); Neutrophils % (A) 79 %; RDW 13.5 % (11.5-15.5); WBC 8.7 k/uL (3.8-10.6); WBC (Perox) 9.02
[2016-08-29] MEDS: NICOTINE 21MG/24HR PATCH TRANSDERM SCH (07:40)
[2016-08-29] MEDS: ASPIRIN 81 MG CHEW PO SCH (07:40)
[2016-08-29] MEDS: MAGNESIUM OXIDE 400 MG TAB PO SCH (07:40)
[2016-08-29] MEDS: carBAMazepine 200 MG TAB PO SCH (07:40)
[2016-08-29] MEDS: ATENOLOL 50 MG TAB PO SCH ×2 (07:40→20:59)
[2016-08-29 07:41] LABS: Anion Gap 4 mmol/L; Blood Urea Nitrogen 10 mg/dL (9-20); Calcium 8.6 mg/dL (8.4-10.2); Carbon Dioxide 27 mmol/L (22-30); Chloride 103 mmol/L (98-107); Glucose 117 mg/dL (74-99); Non-African American GFR(MDRD) >60 (>60 ml/min/1.73 sqM); Potassium 4.6 mmol/L (3.5-5.1); Sodium 134 mmol/L (137-145)
[2016-08-29] MEDS: ENOXAPARIN 40 MG/0.4 ML SYRINGE SQ SCH (07:41)
[2016-08-29] MEDS: FAMOTIDINE 20 MG/2 ML VIAL IV SCH ×2 (07:41→20:59)
[2016-08-29 07:49] LABS: INR 1.2 (<1.1); Prothrombin Time 12.1 sec (9.0-12.0)
--- NOTE | 2016-08-29 13:37 | P.CONS ---
History of Present Illness - Reason for Consult Consult date: 08/29/16 Medical management - History of Present Illness 55-year-old male being seen at the request of the attending for medical management in a patient who is postop august reversal of colostomy in a patient who has a history of perforated diverticulitis. Patient is status post 06/03/2016 sigmoid colectomy for a are free diverticulitis. Patient currently is up ambulating in the room sitting up in a chair and is taking a clear liquid diet and tolerating it. Patient does state the pain medication effective for pain control. It's noted that the patient does have a history of bilateral pulmonary emboli in which a CAT scan of the chest was done on June 08 2016 in which the patient was placed on Coumadin anticoagulation therapy currently patient is denying any chest pain dizziness lightheadedness or shortness of breath. Anticoagulation Coumadin will be initiated today. The INR today is 1.2. Patients being bridged with Lovenox Review of Systems Essentially unremarkable except as mentioned in the present illness Past Medical History Past Medical History: COPD, Deep Vein Thrombosis (DVT), Eye Disorder, GI Bleed, Hypertension, Osteoarthritis (OA), Pneumonia, Pulmonary Embolus (PE), Respiratory Disorder, Seizure Disorder Additional Past Medical History / Comment(s): Respiratory failure with O2 at 2l , tracheobronchitis, pleurisy, bollous lung disease, bilateral pulmonary embolus , last SEIZURE 2015, PERFORATED ULCER 2005 , R leg DVT, CHRONIC BACK PAIN, DDD/ DJD, TIA, MIGRAINES, bilateral TINNITUS, WAS TOLD 20 YEARS AGO HE HAD ALCOHOLIC HEPATITIS, bilateral GLAUCOMA, History of Any Multi-Drug Resistant Organisms: None Reported Past Surgical History: Bowel Resection, Hernia Repair, Orthopedic Surgery Additional Past Surgical History / Comment(s): ulcer repair, EGD/COLONOSCOPY,, JOSIAH KNEE ARTHROSCOPY, abdominal hernia repair. 05/2016 bowel resection with colostomy Past Anesthesia/Blood Transfusion Reactions: Motion Sickness Past Psychological History: Depression Additional Psychological History / Comment(s): . Smoking Status: Current every day smoker Past Alcohol Use History: Occasional Additional Past Alcohol Use History / Comment(s): Pt states he started smoking as a teen and smoking 6-7 cigarettes daily. He states he has hx of alcoholism - last 9 weeks ago Past Drug Use History: None Reported - Past Family History Sister(s) Family Medical History: Cancer Additional Family Medical History / Comment(s): SKIN CANCER Mother Family Medical History: Cancer Additional Family Medical History / Comment(s): BREAST Father Additional Family Medical History / Comment(s): YELLOW JAUNDICE, MALARIA FROM WW2, EMPHYSEMA Brother(s) Family Medical History: Cancer Additional Family Medical History / Comment(s): SKIN Medications and Allergies Home Medications Medication Instructions Recorded Confirmed Type carBAMazepine [TEGretol] 200 mg PO QAM 12/22/13 08/28/16 History Latanoprost [Xalatan 0.005%] 1 drop BOTH EYES HS 05/29/16 08/28/16 History Omeprazole 40 mg PO DAILY PRN 05/29/16 08/28/16 History Albuterol Nebulized [Ventolin 2.5 mg INHALATION RT-BID 08/25/16 08/28/16 History Nebulized] Atenolol [Tenormin] 50 mg PO BID 08/25/16 08/28/16 History Magnesium 200 mg PO DAILY 08/25/16 08/28/16 History Warfarin [Coumadin] 7.5 mg PO DAILY 08/25/16 08/28/16 History Allergies Allergy/AdvReac Type Severity Reaction Status Date / Time varenicline tartrate Allergy Intermediate Rash/Hives Verified 08/28/16 08:46 [From Chantix] ampicillin Allergy Rash/Hives Verified 08/28/16 08:46 Physical Exam Vitals: Vital Signs Temp Pulse Pulse Pulse Resp BP Pulse Ox 08/29/16 07:42 98 F 65 16 103/68 98 08/29/16 07:36 72 08/29/16 07:27 72 08/29/16 00:58 98.7 F 65 16 102/70 98 08/28/16 20:07 82 08/28/16 20:00 97.8 F 77 16 111/74 93 L 08/28/16 19:56 80 08/28/16 17:30 87 100/69 08/28/16 17:15 87 106/70 08/28/16 17:00 86 103/74 08/28/16 16:45 84 105/70 08/28/16 16:30 89 117/77 08/28/16 16:15 84 112/78 08/28/16 16:00 86 122/83 08/28/16 15:45 97.2 F L 85 16 141/91 98 08/28/16 15:15 90 16 141/87 92 L 08/28/16 15:00 92 16 141/81 92 L 08/28/16 14:45 88 16 144/92 95 08/28/16 14:31 97.2 F L 95 12 158/105 94 L Intake and Output 08/28/16 08/29/16 08/29/16 22:59 06:59 14:59 Intake Total 200 500 Output Total 250 1200 275 Balance -50 -1200 225 Intake: IV 200 Oral 500 Output: Urine 250 1200 275 Uretheral (Carter) 225 Other: Voiding Method Indwelling Catheter Indwelling Catheter Weight 68.039 kg Physical exam 55-year-old male sitting up in a chair taking a clear liquid diet pleasant cooperative oriented 3 Lungs essentially clear adequate air movement bilaterally no cough noted Heart S1-S2 audible and regular Abdomen soft surgical dressings dry few hypoactive bowel tones states no stool is not passing gas rectally states urinating no difficulty states tolerating a diet there's been no reports of nausea vomiting Extremities no edema noted to upper or lower extremities Results CBC & Chem 7: 08/29/16 07:10 08/29/16 07:10 Labs: Abnormal Lab Results - Last 24 Hours (Table) 08/29/16 08/29/16 08/29/16 Range/Units 07:10 07:10 07:10 RBC 3.70 L (4.30-5.90) m/uL Hgb 11.6 L (13.0-17.5) gm/dL Hct 36.2 L (39.0-53.0) % PT 12.1 H (9.0-12.0) sec Sodium 134 L (137-145) mmol/L Creatinine 0.57 L (0.66-1.25) mg/dL Glucose 117 H (74-99) mg/dL Assessment and Plan Plan: Impression Status post August 28 reversal of colostomy History of bilateral pulmonary emboli on a CAT scan of the chest May 2016 on anticoagulation therapy Coumadin Chronic systolic congestive heart failure EF 45-50% no evidence of decompensations History of a seizure disorder Chronic nicotine dependency greater than a 20 year history Chronic hypoxic respiratory failure supplemental home O2 Chronic debilitated due to comorbidities History of a perforated diverticulitis May 2016 resulting in a sigmoid colectomy with an colostomy History of alcoholism stated his last drink was 9 weeks prior Plan Resume home meds as appropriate Continue postop surgical care as ordered Encourage the use of the incentive spirometer use every 1 hour while awake Restart Coumadin monitor INR goal 2-3 use Lovenox for bridge until INR is 1.8 or greater then stopped Lovenox Pain control DVT and GI prophylaxis Thank you for allowing us to participate in the medical management of your patient will follow medical course closely addressing medical issues as they arise The above dictated assessment and findings were discussed with dr ramirez . Impression and the plan of care have been dictated as directed. Anastasia Garcia nurse practitioner acting as a scribe for dr ramirez
[2016-08-29] MEDS: HYDROcodone/APAP 7.5-325MG 1 EACH TAB PO PRN ×2 (13:45→18:52)
--- NOTE | 2016-08-29 13:49 | CONS ---
DATE OF CONSULTATION: CHIEF COMPLAINT: A 55-year-old white male status post diverticulitis, bowel perforation, colostomy reversal, complaining of incisional pain. Is not happy with his pain control at this point. Compliance with oxygenation and updraft treatments with DuoNeb have been ordered. Previous history of COPD, eye disorder, GI bleed pneumonia, pulmonary embolism, osteoarthritis, seizure disorder, pleurisy, tracheobronchitis, joint disease, migraines, alcoholic hepatitis, glaucoma, ulcer repair, EGD, colonoscopy, bilateral knee arthroscopy, abdominal hernia repair, bowel resection, colostomy, depression, anxiety, COPD, nicotine addiction. Current every day smoker. Six to seven cigarettes a day, chronic alcoholism. Family history of skin cancer. Mother cancer, breast cancer, father with yellow jaundice malaria, emphysema. HOME MEDICATIONS: Tegretol, Xalatan, omeprazole, Ventolin, Tenormin, magnesium, Coumadin. Allergies are CHANTIX and AMPICILLIN. PHYSICAL EXAM: VITAL SIGNS: Stable, afebrile. CARDIOVASCULAR: S1, S2. LUNGS: Transmitted upper airway sounds, wheezes x4. GI: Soft, bandage intact over wound. HEMATOLOGIC: Negative Homans. VASCULAR: Normal dorsalis pedis, posterior tibial and radial pulse. ASSESSMENT: 1. History of perforated diverticulitis, colostomy reversal. 2. History of pulmonary embolism, deep venous thrombosis. 3. History of chronic obstructive pulmonary disease. 4. Nicotine addiction. 5. Degenerative joint disease. 6. Hypertension. Continue with anticoagulation, blood pressure medications. Pain medicines will be readdressed. Please see further orders. Thank you, Dr. Estrella.
--- NOTE | 2016-08-29 16:07 | P.PN ---
Progress Note - Text The patient is status post reversal of colostomy postoperative day 1. He is doing fairly well. He has some complaints of incisional pain. On exam is lesser stable. His abdomen soft. His incisions are clean and intact. Patient will remain on clear liquid diet. His diet will be advanced once his bowel function has returned.
[2016-08-29] MEDS: WARFARIN 7.5 MG TAB PO SCH (16:50)
[2016-08-29 18:35] LABS: Amorphous Sediment,Urine Occasional /hpf; Appearance,Urine Clear (Clear); Bilirubin,Urine Negative (Negative); Glucose,Urine (UA) Negative (Negative); Ketones,Urine Negative (Negative); Leukocyte Esterase,Urine Trace (Negative); Mucus,Urine Occasional /hpf; Nitrite,Urine Negative (Negative); PH, Urine 5.5 (5.0-8.0); Particle Count 1821; Protein,Urine Negative (Negative); RBC,Urine 1 /hpf (0-5); Specific Gravity,Urine 1.003 (1.001-1.035); Sperm,Urine Few /hpf; UA Billing (MACRO vs. MICRO) MICRO; Urobilinogen,Urine <2.0 mg/dL (<2.0); WBC,Urine 10 /hpf (0-5)
[2016-08-29] MEDS ORDERED: ACETAMINOPHEN TAB 325 MG TAB PO PRN (20:50)
[2016-08-29] MEDS: LATANOPROST 0.005% OPHTH DROPS 2.5 ML BTL BOTH EYES SCH (20:59)
[2016-08-30] MEDS: HYDROmorphone 1 MG/ML 1 ML SYRINGE IVP PRN ×5 (02:25→22:31)
[2016-08-30] MEDS: D5-0.45% NACL WITH KCL 20MEQ/L 1,000 ML IV SCH ×3 (05:13→21:20)
[2016-08-30] MEDS: LACTATED RINGERS 1,000 ML IV SCH (05:27)
[2016-08-30] MEDS: ENOXAPARIN 40 MG/0.4 ML SYRINGE SQ SCH (07:55)
[2016-08-30] MEDS: MAGNESIUM OXIDE 400 MG TAB PO SCH (07:56)
[2016-08-30] MEDS: NICOTINE 21MG/24HR PATCH TRANSDERM SCH (07:57)
[2016-08-30] MEDS: PANTOPRAZOLE 40 MG TABLET PO SCH (07:57)
[2016-08-30] MEDS: ASPIRIN 81 MG CHEW PO SCH (07:57)
[2016-08-30] MEDS: carBAMazepine 200 MG TAB PO SCH (07:57)
[2016-08-30] MEDS: ATENOLOL 50 MG TAB PO SCH ×2 (07:57→21:24)
[2016-08-30] MEDS: FAMOTIDINE 20 MG/2 ML VIAL IV SCH ×2 (07:58→21:24)
--- NOTE | 2016-08-30 08:26 | P.PN ---
Subjective Principal diagnosis: Diverticulitis Patient is 2 days post colostomy reversal. He is complaining of moderate discomfort also admits improving. He has a T-max of 11.1. No labwork from this morning it. It apparently started on antibiotics for a possible urinary tract infection. I do not see a urinary cultures thus far. Objective - Vital Signs Vital signs: Vital Signs Temp 97.6 F 08/30/16 01:25 Pulse 93 08/30/16 01:25 Resp 16 08/30/16 04:00 BP 123/73 08/30/16 01:25 Pulse Ox 93 L 08/30/16 01:25 Intake & Output 08/29/16 08/30/16 08/30/16 18:59 06:59 18:59 Intake Total 1520 1000 Output Total 875 820 Balance 645 180 Intake: IV 1000 D5-0.45% NaCl with KCl 1000 20Meq/l 1,000 ml @ 125 mls/hr IV .Q8H [facility] Rx#: [id number] Oral 1520 Output: Urine 875 820 Uretheral (Carter) 225 Other: Voiding Method Urinal Urinal # Voids 3 - Exam Abdomen: Soft, mild tenderness, incision clean, slight erythema around the ostomy reversal incision site, the Nidhi drain intact - Labs CBC & Chem 7: 08/29/16 07:10 08/29/16 07:10 Labs: Abnormal Lab Results - Last 24 Hours (Table) 08/29/16 Range/Units 18:00 Urine Blood Small H (Negative) Ur Leukocyte Esterase Trace H (Negative) Urine WBC 10 H (0-5) /hpf Amorphous Sediment Occasional H (None) /hpf Urine Mucus Occasional H (None) /hpf Urine Sperm Few H (None) /hpf Assessment and Plan (1) Diverticulitis of colon with perforation Narrative/Plan: Continue clear liquids only for now. Increase activity levels. Repeat labs tomorrow. Status: Acute
[2016-08-30] MEDS: ALBUTEROL NEBULIZED 2.5 MG/3 ML INHALATION SCH ×2 (08:32→20:12)
[2016-08-30 14:58] LABS: Basophils # (A) 0.1 k/uL (0-0.2); Basophils % (A) 1 %; CH 31.5; CHCM 32.3; Eosinophils # (A) 0.2 k/uL (0-0.7); Eosinophils % (A) 2 %; HGB 11.1 gm/dL (13.0-17.5); Luc # (Auto) 0.13; Luc % (Auto) 1; Lymphocytes # (A) 1.2 k/uL (1.0-4.8); Lymphocytes % (A) 11 %; MCH 31.1 pg (25.0-35.0); MCHC 31.8 g/dL (31.0-37.0); MCV 97.7 fL (80.0-100.0); Mean Platelet Volume 6.9; Monocytes # (A) 0.6 k/uL (0-1.0); Monocytes % (A) 6 %; Neutrophils # (A) 8.1 k/uL (1.3-7.7); Neutrophils % (A) 79 %; RBC 3.58 m/uL (4.30-5.90); RDW 13.4 % (11.5-15.5); WBC 10.3 k/uL (3.8-10.6); WBC (Perox) 9.96
[2016-08-30 15:03] LABS: INR 2.7 (<1.1)
[2016-08-30 15:07] LABS: ALT 20 U/L (21-72); AST 17 U/L (17-59); Alkaline Phosphatase 51 U/L (38-126); Anion Gap 5 mmol/L; Blood Urea Nitrogen 4 mg/dL (9-20); Calcium 8.5 mg/dL (8.4-10.2); Carbon Dioxide 28 mmol/L (22-30); Chloride 102 mmol/L (98-107); Glucose 91 mg/dL (74-99); Non-African American GFR(MDRD) >60 (>60 ml/min/1.73 sqM); Potassium 4.2 mmol/L (3.5-5.1); Sodium 135 mmol/L (137-145); Total Bilirubin 0.6 mg/dL (0.2-1.3); Total Protein 5.5 g/dL (6.3-8.2)
--- NOTE | 2016-08-30 18:41 | PN ---
55-year-old white male admitted with acute abdominal pain and a colostomy reversal for medical management consult to do diverticular rupture from before. The patient having incisional pain. He is on blood pressure medications Coumadin, Reglan for nausea, Protonix for GI prophylaxis, ( ) for hypertension and Tegretol for seizures. Laboratory revealed hemoglobin of 11.6, INR 1.2, sodium 134. UA is positive for possible urinary tract infection. We started on some Rocephin, IV for UTI and sepsis, status post bowel colectomy repair with low-grade fever with positive UA started on as mentioned IV Rocephin 1 gram daily, Coumadin level will be monitored. Continue on his home Coumadin dose. His blood pressure is 123/73, respiratory rate 15 to 16, temperature 97.6, pulse of 78 to 80s. GI: Incision was clean, dry, and intact. CARDIOVASCULAR: S1, S2. LUNGS: Decreased breath sounds x4. ASSESSMENT ( ) Chronic obstructive pulmonary disease exacerbation . Patient continue with his updraft treatments. PROGNOSIS: Guarded. He is improving slowly.
[2016-08-30] MEDS: LATANOPROST 0.005% OPHTH DROPS 2.5 ML BTL BOTH EYES SCH (21:24)
[2016-08-30] MEDS: WARFARIN 7.5 MG TAB PO SCH (22:48)
[2016-08-31] MEDS: HYDROmorphone 1 MG/ML 1 ML SYRINGE IVP PRN ×4 (03:57→18:13)
[2016-08-31] MEDS: FAMOTIDINE 20 MG/2 ML VIAL IV SCH ×2 (07:36→20:36)
[2016-08-31] MEDS: ATENOLOL 50 MG TAB PO SCH ×2 (07:36→20:36)
[2016-08-31] MEDS: PANTOPRAZOLE 40 MG TABLET PO SCH (07:36)
[2016-08-31] MEDS: ASPIRIN 81 MG CHEW PO SCH (07:37)
[2016-08-31] MEDS: MAGNESIUM OXIDE 400 MG TAB PO SCH (07:37)
[2016-08-31] MEDS: ENOXAPARIN 40 MG/0.4 ML SYRINGE SQ SCH (07:37)
[2016-08-31] MEDS: HYDROcodone/APAP 7.5-325MG 1 EACH TAB PO PRN ×2 (07:38→20:36)
[2016-08-31] MEDS: NICOTINE 21MG/24HR PATCH TRANSDERM SCH (07:38)
[2016-08-31] MEDS: carBAMazepine 200 MG TAB PO SCH (07:39)
[2016-08-31 08:04] LABS: Basophils % (A) 0 %; CH 31.6; CHCM 32.5; Eosinophils # (A) 0.4 k/uL (0-0.7); Eosinophils % (A) 5 %; HCT 32.7 % (39.0-53.0); HDW 2.13; HGB 10.3 gm/dL (13.0-17.5); Luc # (Auto) 0.15; Luc % (Auto) 2; Lymphocytes % (A) 14 %; MCH 30.8 pg (25.0-35.0); MCHC 31.6 g/dL (31.0-37.0); MCV 97.5 fL (80.0-100.0); Mean Platelet Volume 7.3; Monocytes # (A) 0.4 k/uL (0-1.0); Monocytes % (A) 6 %; Neutrophils # (A) 5.2 k/uL (1.3-7.7); Neutrophils % (A) 73 %; RBC 3.35 m/uL (4.30-5.90); RDW 13.6 % (11.5-15.5); WBC 7.1 k/uL (3.8-10.6); WBC (Perox) 7.58
[2016-08-31 08:08] LABS: INR 3.9 (<1.1); Prothrombin Time 37.8 sec (9.0-12.0)
[2016-08-31 08:21] LABS: Anion Gap 7 mmol/L; Blood Urea Nitrogen 3 mg/dL (9-20); Calcium 8.5 mg/dL (8.4-10.2); Carbon Dioxide 27 mmol/L (22-30); Chloride 102 mmol/L (98-107); Glucose 100 mg/dL (74-99); Non-African American GFR(MDRD) >60 (>60 ml/min/1.73 sqM); Sodium 136 mmol/L (137-145)
[2016-08-31] MEDS: LACTATED RINGERS 1,000 ML IV SCH (10:12)
[2016-08-31] MEDS: ALBUTEROL NEBULIZED 2.5 MG/3 ML INHALATION SCH ×2 (10:26→20:15)
--- NOTE | 2016-08-31 10:42 | P.PN ---
Subjective Principal diagnosis: Diverticulitis Patient doing well today. His pain is improved. He is passing flatus. He is asking for regular food. Denies nausea or vomiting. White blood cell count 7.1. T-max 99.2. INR 3.9. Objective - Vital Signs Vital signs: Vital Signs Temp 99.2 F 08/30/16 20:00 Pulse 72 08/31/16 10:26 Resp 18 08/31/16 08:00 BP 119/64 08/30/16 22:00 Pulse Ox 91 L 08/30/16 20:00 Intake & Output 08/30/16 08/31/16 08/31/16 18:59 06:59 18:59 Intake Total 1350 Output Total 1500 900 Balance -150 -900 Weight 68.039 kg 68.039 kg Intake: IV 1250 D5-0.45% NaCl with KCl 1250 20Meq/l 1,000 ml @ 125 mls/hr IV .Q8H [facility] Rx#: [id number] Intake, IV Titration 100 Amount cefTRIAXone 1,000 mg In 100 Sodium Chloride 0.9% 50 ml @ 100 mls/hr IVPB Q24HR [facility] Rx#:[id number] Output: Urine 1500 900 Other: Voiding Method Urinal Urinal # Voids 2 2 - Exam Abdomen: Soft, mild tenderness, incision and dressing clean and dry, minimal erythema present yesterday is resolved - Labs CBC & Chem 7: 08/31/16 07:56 08/31/16 07:56 Labs: Abnormal Lab Results - Last 24 Hours (Table) 08/30/16 08/30/16 08/30/16 Range/Units 14:30 14:30 14:30 RBC 3.58 L (4.30-5.90) m/uL Hgb 11.1 L (13.0-17.5) gm/dL Hct 35.0 L (39.0-53.0) % Neutrophils # 8.1 H (1.3-7.7) k/uL PT 26.0 H (9.0-12.0) sec Sodium 135 L (137-145) mmol/L BUN 4 L (9-20) mg/dL Creatinine 0.52 L (0.66-1.25) mg/dL Glucose (74-99) mg/dL ALT 20 L (21-72) U/L Total Protein 5.5 L (6.3-8.2) g/dL Albumin 3.1 L (3.5-5.0) g/dL 08/31/16 08/31/16 08/31/16 Range/Units 07:56 07:56 07:56 RBC 3.35 L (4.30-5.90) m/uL Hgb 10.3 L (13.0-17.5) gm/dL Hct 32.7 L (39.0-53.0) % Neutrophils # (1.3-7.7) k/uL PT 37.8 H (9.0-12.0) sec Sodium 136 L (137-145) mmol/L BUN 3 L (9-20) mg/dL Creatinine 0.52 L (0.66-1.25) mg/dL Glucose 100 H (74-99) mg/dL ALT (21-72) U/L Total Protein (6.3-8.2) g/dL Albumin (3.5-5.0) g/dL Assessment and Plan (1) Diverticulitis of colon with perforation Narrative/Plan: Increase activity. Advance diet. Status: Acute
[2016-08-31] MEDS: D5-0.45% NACL WITH KCL 20MEQ/L 1,000 ML IV SCH ×2 (16:01→18:12)
--- NOTE | 2016-08-31 16:59 | PN ---
Jamil Tomlinson was seen, evaluated and examined. 55-year-old male who is status post reversal of a colostomy. Patient has a history of deep venous thrombosis, pulmonary embolism as well as COPD of severe category. Clinically patient is doing slightly better patient. The patient PT, INR, noted to be on higher side. His last set of vitals include blood pressure is 120/60, respiratory rate is 20, heart rate 85, temperature 98, saturation 95%. HEENT: Unremarkable. NECK: Supple. LUNGS: Good air entry bilaterally. HEART: Regular rate and rhythm. ABDOMEN: Soft. No rebound or rigidity. EXTREMITIES: +1 peripheral pulses. NEUROLOGICAL EXAMINATION: Otherwise, awake and alert. Labs reviewed. Hemoglobin and hematocrit 10 and 32, platelet count of 189,000. PT, INR 37.8, 3.9. IMPRESSION: 1. Deep venous thrombosis, pulmonary embolism by history. Patient is back on Coumadin. Will hold the Coumadin due to supratherapeutic PT/INR. 2. Supratherapeutic PT/INR. Will hold Coumadin accordingly. Repeat PT, INR, and CBC tomorrow. 3. Severe chronic obstructive pulmonary disease, overall stable on breathing treatments. Monitor and observe. 4. Perforated bowel and ischemic bowel, status post with history of colostomy, status post reversal doing well in that regard. PLAN AND RECOMMENDATIONS: As above. Labs ordered. Follow clinical course closely. Care plan discussed with the patient and Staff at length.
[2016-08-31] MEDS: LATANOPROST 0.005% OPHTH DROPS 2.5 ML BTL BOTH EYES SCH (20:36)
[2016-09-01] MEDS: D5-0.45% NACL WITH KCL 20MEQ/L 1,000 ML IV SCH ×4 (00:15→23:46)
[2016-09-01] MEDS: HYDROcodone/APAP 7.5-325MG 1 EACH TAB PO PRN ×4 (03:14→20:59)
[2016-09-01] MEDS: LACTATED RINGERS 1,000 ML IV SCH ×2 (04:56→23:45)
[2016-09-01 06:49] LABS: Basophils % (A) 0 %; CH 31.6; CHCM 32.9; Eosinophils # (A) 0.4 k/uL (0-0.7); Eosinophils % (A) 9 %; HCT 33.4 % (39.0-53.0); HDW 2.21; HGB 10.7 gm/dL (13.0-17.5); Luc # (Auto) 0.12; Luc % (Auto) 3; Lymphocytes # (A) 0.7 k/uL (1.0-4.8); Lymphocytes % (A) 15 %; MCH 30.8 pg (25.0-35.0); MCV 96.3 fL (80.0-100.0); Mean Platelet Volume 7.3; Monocytes # (A) 0.3 k/uL (0-1.0); Monocytes % (A) 6 %; Neutrophils # (A) 3.2 k/uL (1.3-7.7); Neutrophils % (A) 67 %; RBC 3.47 m/uL (4.30-5.90); RDW 13.4 % (11.5-15.5); WBC 4.7 k/uL (3.8-10.6)
[2016-09-01 06:54] LABS: Prothrombin Time 38.9 sec (9.0-12.0)
[2016-09-01 07:22] LABS: Anion Gap 8 mmol/L; Blood Urea Nitrogen <2 mg/dL (9-20); Calcium 8.9 mg/dL (8.4-10.2); Carbon Dioxide 27 mmol/L (22-30); Chloride 103 mmol/L (98-107); Glucose 93 mg/dL (74-99); Non-African American GFR(MDRD) >60 (>60 ml/min/1.73 sqM); Potassium 4.3 mmol/L (3.5-5.1); Sodium 138 mmol/L (137-145)
[2016-09-01] MEDS: ALBUTEROL NEBULIZED 2.5 MG/3 ML INHALATION SCH ×2 (08:06→22:01)
--- NOTE | 2016-09-01 08:29 | P.PN ---
Subjective 55-year-old male being seen and evaluated currently resting in bed. Patient states he's hungry would like his diet advanced currently tolerating full liquid. Pain control effective with current analgesics patient states he had a small bowel movement last night and is passing gas rectally progress patient is postop August 28 reversal of colostomy the patient was a history of perforated diverticulitis. Objective - Vital Signs Vital signs: Vital Signs Temp 98.6 F 09/01/16 02:42 Pulse 84 09/01/16 08:19 Resp 16 09/01/16 04:00 BP 145/88 09/01/16 02:42 Pulse Ox 93 L 09/01/16 02:42 Intake & Output 08/31/16 09/01/16 09/01/16 18:59 06:59 18:59 Intake Total 480 1500 Output Total 2800 Balance -2320 1500 Weight 68.039 kg Intake: IV 1500 D5-0.45% NaCl with KCl 1500 20Meq/l 1,000 ml @ 125 mls/hr IV .Q8H [facility] Rx#: [id number] Oral 480 Output: Urine 2800 Other: Voiding Method Urinal Urinal # Voids 2 3 - Exam Physical exam 55-year-old male resting in bed appears in no acute distress Lungs essentially clear adequate air movement Heart S1-S2 audible regular denying chest pain Abdomen surgical dressing site dry a few hypoactive bowel tones not distended surgical tenderness urinating no difficulty states one small stool the day before Extremities no edema - Labs CBC & Chem 7: 09/01/16 06:36 09/01/16 06:36 Labs: Abnormal Lab Results - Last 24 Hours (Table) 08/31/16 09/01/16 09/01/16 Range/Units 07:56 06:36 06:36 RBC 3.47 L (4.30-5.90) m/uL Hgb 10.7 L (13.0-17.5) gm/dL Hct 33.4 L (39.0-53.0) % Lymphocytes # 0.7 L (1.0-4.8) k/uL PT 38.9 H (9.0-12.0) sec Sodium 136 L (137-145) mmol/L BUN 3 L (9-20) mg/dL Creatinine 0.52 L (0.66-1.25) mg/dL Glucose 100 H (74-99) mg/dL 09/01/16 Range/Units 06:36 RBC (4.30-5.90) m/uL Hgb (13.0-17.5) gm/dL Hct (39.0-53.0) % Lymphocytes # (1.0-4.8) k/uL PT (9.0-12.0) sec Sodium (137-145) mmol/L BUN <2 L (9-20) mg/dL Creatinine 0.55 L (0.66-1.25) mg/dL Glucose (74-99) mg/dL Assessment and Plan Plan: Impression Status post August 28 reversal of colostomy History of bilateral pulmonary emboli on a CAT scan of the chest May 2016 on anticoagulation therapy Coumadin Chronic systolic congestive heart failure EF 45-50% no evidence of decompensations History of a seizure disorder Chronic nicotine dependency greater than a 20 year history Chronic hypoxic respiratory failure supplemental home O2 Chronic debilitated due to comorbidities History of a perforated diverticulitis May 2016 resulting in a sigmoid colectomy with an colostomy History of alcoholism stated his last drink was 9 weeks prior Plan Resume home meds as appropriate Continue postop surgical care as ordered Encourage the use of the incentive spirometer use every 1 hour while awake Advanced diet Pain control DVT and GI prophylaxis INR is 4 hold Coumadin today stop the Lovenox Thank you for allowing us to participate in the medical management of your patient will follow medical course closely addressing medical issues as they arise The above dictated assessment and findings were discussed with dr ramirez . Impression and the plan of care have been dictated as directed. Anastasia Garcia nurse practitioner acting as a scribe for dr ramirez
[2016-09-01] MEDS: NICOTINE 21MG/24HR PATCH TRANSDERM SCH ×2 (08:44→08:45)
[2016-09-01] MEDS: PANTOPRAZOLE 40 MG TABLET PO SCH (08:45)
[2016-09-01] MEDS: ATENOLOL 50 MG TAB PO SCH ×2 (08:45→21:23)
[2016-09-01] MEDS: carBAMazepine 200 MG TAB PO SCH (08:46)
[2016-09-01] MEDS: ASPIRIN 81 MG CHEW PO SCH (08:46)
[2016-09-01] MEDS: MAGNESIUM OXIDE 400 MG TAB PO SCH (08:46)
[2016-09-01] MEDS: FAMOTIDINE 20 MG/2 ML VIAL IV SCH (09:02)
[2016-09-01] MEDS: LATANOPROST 0.005% OPHTH DROPS 2.5 ML BTL BOTH EYES SCH (21:00)
[2016-09-02] MEDS: HYDROcodone/APAP 7.5-325MG 1 EACH TAB PO PRN ×2 (05:31→10:48)
[2016-09-02 06:18] LABS: Basophils % (A) 1 %; CH 31.2; CHCM 32.7; Eosinophils # (A) 0.5 k/uL (0-0.7); Eosinophils % (A) 9 %; HCT 34.2 % (39.0-53.0); HDW 2.33; HGB 11.2 gm/dL (13.0-17.5); Luc # (Auto) 0.18; Luc % (Auto) 3; Lymphocytes # (A) 0.9 k/uL (1.0-4.8); Lymphocytes % (A) 18 %; MCH 31.3 pg (25.0-35.0); MCHC 32.7 g/dL (31.0-37.0); MCV 95.9 fL (80.0-100.0); Mean Platelet Volume 7.5; Monocytes # (A) 0.4 k/uL (0-1.0); Monocytes % (A) 9 %; Neutrophils # (A) 3.2 k/uL (1.3-7.7); Neutrophils % (A) 61 %; RBC 3.56 m/uL (4.30-5.90); RDW 13.5 % (11.5-15.5); WBC 5.2 k/uL (3.8-10.6); WBC (Perox) 5.44
[2016-09-02 06:28] LABS: INR 1.9 (<1.1); Prothrombin Time 18.2 sec (9.0-12.0)
[2016-09-02 06:31] LABS: Anion Gap 9 mmol/L; Blood Urea Nitrogen 4 mg/dL (9-20); Calcium 8.8 mg/dL (8.4-10.2); Carbon Dioxide 26 mmol/L (22-30); Chloride 103 mmol/L (98-107); Glucose 103 mg/dL (74-99); Non-African American GFR(MDRD) >60 (>60 ml/min/1.73 sqM); Potassium 4.3 mmol/L (3.5-5.1); Sodium 138 mmol/L (137-145)
[2016-09-02 07:26] VITALS: BP 156/98; TEMP 97.8
[2016-09-02] MEDS: ALBUTEROL NEBULIZED 2.5 MG/3 ML INHALATION SCH (07:38)
[2016-09-02 07:40] VITALS: PULSE 78; RESP 14
[2016-09-02] MEDS: PANTOPRAZOLE 40 MG TABLET PO SCH (09:14)
[2016-09-02] MEDS: ATENOLOL 50 MG TAB PO SCH (09:14)
[2016-09-02] MEDS: ASPIRIN 81 MG CHEW PO SCH (09:14)
[2016-09-02] MEDS: MAGNESIUM OXIDE 400 MG TAB PO SCH (09:15)
[2016-09-02] MEDS: carBAMazepine 200 MG TAB PO SCH (09:15)
[2016-09-02] MEDS: D5-0.45% NACL WITH KCL 20MEQ/L 1,000 ML IV SCH (09:24)
[2016-09-02] MEDS ORDERED: NICOTINE 21MG/24HR PATCH TRANSDERM SCH (10:00)
--- NOTE | 2016-09-02 11:34 | P.PN ---
Subjective 55-year-old seen and examined. Currently sitting up on the edge of the bed taking a diet. no new postop events. Patient is postop August 28 reversal of colostomy the patient was a history of perforated diverticulitis. Patient states is passing gas rectally no stool. Patient's tolerating a diet no reports of nausea vomiting. Patient states pain medication effective for pain control the white count is down to 5.2 this morning patient remains afebrile states been up ambulating in the villalobos Objective - Vital Signs Vital signs: Vital Signs Temp 97.8 F 09/02/16 07:25 Pulse 78 09/02/16 07:48 Resp 14 09/02/16 07:48 BP 156/98 09/02/16 07:25 Pulse Ox 93 L 09/02/16 07:25 Intake & Output 09/01/16 09/02/16 09/02/16 18:59 06:59 18:59 Intake Total 1800 480 Output Total 550 400 Balance 1800 -550 80 Weight 68.039 kg Intake: Oral 1800 480 Output: Urine 550 400 Other: Voiding Method Toilet Toilet Urinal Urinal # Voids 1 - Exam Physical exam 55-year-old male sitting up in bed pleasant cooperative oriented 3 appears in no acute distress Lungs essentially clear adequate air movement on room air Heart S1-S2 audible regular Abdomen surgical dressing dry slight surgical tenderness states passing gas rectally but no stool no reports of nausea vomiting tolerating diet Extremities no edema noted - Labs CBC & Chem 7: 09/02/16 06:00 09/02/16 06:00 Labs: Abnormal Lab Results - Last 24 Hours (Table) 09/02/16 09/02/16 09/02/16 Range/Units 06:00 06:00 06:00 RBC 3.56 L (4.30-5.90) m/uL Hgb 11.2 L (13.0-17.5) gm/dL Hct 34.2 L (39.0-53.0) % Lymphocytes # 0.9 L (1.0-4.8) k/uL PT 18.2 H (9.0-12.0) sec BUN 4 L (9-20) mg/dL Creatinine 0.60 L (0.66-1.25) mg/dL Glucose 103 H (74-99) mg/dL Assessment and Plan Plan: Impression Status post August 28 reversal of colostomy History of bilateral pulmonary emboli on a CAT scan of the chest May 2016 on anticoagulation therapy Coumadin Chronic systolic congestive heart failure EF 45-50% no evidence of decompensations History of a seizure disorder Chronic nicotine dependency greater than a 20 year history Chronic hypoxic respiratory failure supplemental home O2 Chronic debilitated due to comorbidities History of a perforated diverticulitis May 2016 resulting in a sigmoid colectomy with an colostomy History of alcoholism stated his last drink was 9 weeks prior Postop leukocytosis resolved Plan Resume home meds as appropriate Continue postop surgical care as ordered Encourage the use of the incentive spirometer use every 1 hour while awake Advanced diet Pain control DVT and GI prophylaxis Monitor the INR while on Coumadin to goal the INR 2-3 Stop IV Rocephin start Ceftin 500 twice a day for 1 week Thank you for allowing us to participate in the medical management of your patient will follow medical course closely addressing medical issues as they arise The above dictated assessment and findings were discussed with dr ramirez . Impression and the plan of care have been dictated as directed. Anastasia Garcia nurse practitioner acting as a scribe for dr ramirez
--- NOTE | 2016-09-02 14:06 | P.DS ---
Providers Date of admission: 08/28/16 08:19 Expected date of discharge: 09/02/16 Attending physician: Dylan Wellington Consults: 08/28/16 14:25 Consult Physician Routine Consulting Provider: Octaviano Noble Reason/Comments: Medical management Do you want consulting provider notified?: Yes Primary care physician[facility] Course: 55-year-old male who presented on a elective basis to undergo reversal of colostomy done on August 28 in a patient who has a history of perforated diverticulitis that resulted in a sigmoid colectomy done on 06/03/2016 postop there were no events. Patient was resumed on his Coumadin that the patient was taking for bilateral pulmonary emboli diagnosed by CAT scan of the chest on May 2016 at the time of discharge patient had been ambulatory on the unit pain had been under control there was no nausea or vomiting patient had a bowel movement. was tolerating a diet There was no evidence of a UTI : The patient is felt to be hemodynamically stable and appropriate to proceed with a discharge to home Impression discharge diagnosis Status post done on an elective basis 08/28/2016 reversal of colostomy, takedown splenic flexure, partial greater omentectomy in a patient with a history of perforated diverticulitis Impression Status post August 28 reversal of colostomy History of bilateral pulmonary emboli on a CAT scan of the chest May 2016 on anticoagulation therapy Coumadin Chronic systolic congestive heart failure EF 45-50% no evidence of decompensations History of a seizure disorder Chronic nicotine dependency greater than a 20 year history Chronic hypoxic respiratory failure supplemental home O2 Chronic debilitated due to comorbidities History of a perforated diverticulitis May 2016 resulting in a sigmoid colectomy with an colostomy History of alcoholism stated his last drink was 9 weeks prior Postop leukocytosis resolved The above dictated assessment and findings were discussed with dr wellington. Impression and the plan of care have been dictated as directed. Anastasia Garcia nurse practitioner acting as a scribe for dr wellington Plan - Discharge Summary New Discharge Prescriptions: New HYDROcodone/APAP 7.5-325MG [[place] 7.5-325] 1 each PO Q4H PRN #30 tab PRN Reason: MODERATE Pain Docusate [Colace] 100 mg PO DAILY #30 capsule Continue carBAMazepine [TEGretol] 200 mg PO QAM Latanoprost [Xalatan 0.005%] 1 drop BOTH EYES HS Omeprazole 40 mg PO DAILY PRN PRN Reason: Heartburn Nicotine 21Mg/24Hr Patch [Habitrol] 1 patch TRANSDERM DAILY #30 patch HYDROcodone/APAP 7.5-325MG [[place] 7.5-325] 1 tab PO BID PRN #30 tab PRN Reason: Pain Aspirin 81 mg PO DAILY chew Albuterol Nebulized [Ventolin Nebulized] 2.5 mg INHALATION RT-BID Atenolol [Tenormin] 50 mg PO BID Warfarin [Coumadin] 7.5 mg PO DAILY Magnesium 200 mg PO DAILY Discharge Medication List carBAMazepine [TEGretol] 200 mg PO QAM 12/22/13 [History] Latanoprost [Xalatan 0.005%] 1 drop BOTH EYES HS 05/29/16 [History] Omeprazole 40 mg PO DAILY PRN 05/29/16 [History] Aspirin 81 mg PO DAILY chew 06/13/16 [Rx] HYDROcodone/APAP 7.5-325MG [[place] 7.5-325] 1 tab PO BID PRN #30 tab 06/13/16 [Rx ] Nicotine 21Mg/24Hr Patch [Habitrol] 1 patch TRANSDERM DAILY #30 patch 06/13/16 [ Rx] Albuterol Nebulized [Ventolin Nebulized] 2.5 mg INHALATION RT-BID 08/25/16 [ History] Atenolol [Tenormin] 50 mg PO BID 08/25/16 [History] Magnesium 200 mg PO DAILY 08/25/16 [History] Warfarin [Coumadin] 7.5 mg PO DAILY 08/25/16 [History] Docusate [Colace] 100 mg PO DAILY #30 capsule 09/02/16 [Rx] HYDROcodone/APAP 7.5-325MG [[place] 7.5-325] 1 each PO Q4H PRN #30 tab 09/02/16 [ Rx] Follow up Appointment(s)/Referral(s): Dylan Wellington MD [STAFF PHYSICIAN] - 1 Week Octaviano Noble MD [Primary Care Provider] - 09/05/16 Activity/Diet/Wound Care/Special Instructions: Dressing change daily Nidhi drain in place instructions on wound care Discharge Disposition: HOME WITH HOME HEALTH SERVICES
[2016-09-02] MEDS ORDERED: WARFARIN 5 MG TAB PO SCH (18:00)
[2016-09-02] MEDS ORDERED: CEFUROXIME 250 MG TAB PO SCH (21:00)
== END 2016-09-02 17:30 | disposition home health service (06) | DRG 330 ==
LOC: 2ORWHC 08:19 → 3SUR 15:03
PROVIDERS: ADMIT Surgery; ATTEND Surgery
PROC: 0DQL0ZZ Repair Transverse Colon, Open Approach (ICD-10-PCS; principal; 2016-08-28 11:35)
PROC: 0DBS0ZZ (ICD-10-PCS; principal; 2016-08-28 11:35)
DX: Z43.3 Encounter for attention to colostomy (principal); J96.11 Chronic respiratory failure with hypoxia; I50.22 Chronic systolic (congestive) heart failure; I11.0 Hypertensive heart disease with heart failure; J44.1 Chronic obstructive pulmonary disease with (acute) exacerbation; F32.9 Major depressive disorder, single episode, unspecified; F10.20 Alcohol dependence, uncomplicated; F17.210 Nicotine dependence, cigarettes, uncomplicated; G40.909 Epilepsy, unspecified, not intractable, without status epilepticus; H40.9 Unspecified glaucoma; M19.90 Unspecified osteoarthritis, unspecified site; R79.1 Abnormal coagulation profile; Z79.01 Long term (current) use of anticoagulants; Z79.899 Other long term (current) drug therapy; Z86.711 Personal history of pulmonary embolism; Z86.718 Personal history of other venous thrombosis and embolism; Z86.73 Personal history of transient ischemic attack (TIA), and cerebral infarction without residual deficits
CPT/HCPCS: 44388; 44389; 45330; 45378; 71010; 80048; 80051; 80053; 81001; 85025; 85027; 85610; 86850; 86900; 86901; 88304; 88305; 94640

== ENCOUNTER → 2016-10-17 | Outpatient (CLI) | payer MEDICARE ==
--- NOTE | 2016-10-17 17:52 | CT ---
EXAMINATION TYPE: CT angio neck DATE OF EXAM: 10/17/2016 HISTORY: Per patient follow up stenosis COMPARISON: NONE CT DLP: 451 mGycm. Automated Exposure Control for Dose Reduction was Utilized. TECHNIQUE: CTA scan of the neck is performed with IV Contrast, patient injected with 65 mL of Omnipa que 300, axial images are obtained, coronal and sagittal reformatted images are reviewed. Three-D rec onstructed images are created on an independent workstation and reviewed. FINDINGS: There is normal branching pattern of the great vessels on the aortic arch. There is atherosclerotic c alcification in the thoracic aorta and great vessels. There is arterial flow in both vertebral arteri es. There is significant plaque formation at the right carotid artery bifurcation with tortuous right internal carotid artery. There is lumen narrowing of estimated 75%. There is approximate 20% narrowi ng at the origin of the left internal carotid artery. IMPRESSION: Atherosclerotic vascular disease. There is at least 75% stenosis and probably closer to 100% stenosis at the origin of the right summer intern al carotid artery. There is approximate 20% stenosis at the origin left internal carotid artery.
== END | disposition home or self-care (01) ==
LOC: RADCTMAIN 16:16
PROVIDERS: ATTEND Thoracic Surgery (Cardiothoracic Vascular Surgery)
DX: I65.23 Occlusion and stenosis of bilateral carotid arteries (principal)
CPT/HCPCS: 70498; Q9967

== ENCOUNTER → 2016-12-03 | Outpatient (CLI) | payer MEDICARE ==
[2016-12-03 14:37] LABS: EKG EKG PERFORMED
[2016-12-03 15:03] LABS: Anisocytosis Slight; Basophils % (A) 0 %; CHCM 30.9; Eosinophils # (A) 0.3 k/uL (0-0.7); Eosinophils % (A) 3 %; HCT 33.2 % (39.0-53.0); HGB 10.5 gm/dL (13.0-17.5); Hypochromasia Slight; Luc # (Auto) 0.13; Luc % (Auto) 2; Lymphocytes # (A) 1.2 k/uL (1.0-4.8); Lymphocytes % (A) 14 %; MCH 28.8 pg (25.0-35.0); MCHC 31.6 g/dL (31.0-37.0); MCV 91.1 fL (80.0-100.0); Mean Platelet Volume 7.8; Monocytes # (A) 0.4 k/uL (0-1.0); Monocytes % (A) 5 %; Neutrophils # (A) 6.4 k/uL (1.3-7.7); Neutrophils % (A) 76 %; RBC 3.64 m/uL (4.30-5.90); RDW 19.1 % (11.5-15.5); WBC 8.4 k/uL (3.8-10.6); WBC (Perox) 8.68
[2016-12-03 15:16] LABS: Prothrombin Time 82.7 sec (9.0-12.0)
[2016-12-03 15:36] LABS: Anion Gap 11 mmol/L; Blood Urea Nitrogen 13 mg/dL (9-20); Carbon Dioxide 29 mmol/L (22-30); Chloride 101 mmol/L (98-107); Glucose 89 mg/dL (74-99); Non-African American GFR(MDRD) >60 (>60 ml/min/1.73 sqM); Potassium 4.1 mmol/L (3.5-5.1); Sodium 141 mmol/L (137-145)
[2016-12-03 17:50] LABS: INR >5.0 (<1.2); Partial Thromboplastin Time 64.9 sec (22.0-30.0)
[2016-12-04 14:34] LABS: Heparin Induced Plt Abs 0.211 OD (<0.4)
== END | disposition home or self-care (01) ==
LOC: LABPAT 14:19
PROVIDERS: ATTEND Thoracic Surgery (Cardiothoracic Vascular Surgery)
DX: Z01.810 Encounter for preprocedural cardiovascular examination (principal); Z01.812 Encounter for preprocedural laboratory examination; R53.83 Other fatigue; I10 Essential (primary) hypertension; D75.82 Heparin induced thrombocytopenia (HIT); D68.51 Activated protein C resistance; Z79.01 Long term (current) use of anticoagulants
CPT/HCPCS: 80051; 81241; 82565; 82947; 84520; 85025; 85610; 85730; 86022; 87086; 93005

== ENCOUNTER → 2016-12-09 | Outpatient (CLI) | payer MEDICARE ==
[2016-12-09 13:48] LABS: Partial Thromboplastin Time 23.6 sec (22.0-30.0); Prothrombin Time 10.4 sec (9.0-12.0)
== END | disposition home or self-care (01) ==
LOC: LABPAT 13:05
PROVIDERS: ATTEND Thoracic Surgery (Cardiothoracic Vascular Surgery)
DX: Z01.812 Encounter for preprocedural laboratory examination (principal); I65.29 Occlusion and stenosis of unspecified carotid artery
CPT/HCPCS: 36415; 85610; 85730

== ENCOUNTER 2016-12-10 09:22 | Inpatient (IN) | payer MEDICARE ==
[2016-12-09 09:54] VITALS: BMI 22.4
[~2016-12-10 09:22] MED LIST changes: -DEXAMETHASONE SOD PHOSPHATE 10 MG/ML 1 ML VIAL IV ONE; -HEPARIN SODIUM,PORCINE 5,000 UNIT/ML 1 ML VIAL SQ ONE; +LACTATED RINGERS 1,000 ML IV SCH; -MIDAZOLAM 2 MG/2 ML VIAL IV PRN; -ONDANSETRON 4 MG/2 ML VIAL IVP ONE; +Pre Op ABX Message 1 EACH MISC MISCELLANE ONE; -ceFAZolin 2 GM in SODIUM CHLORIDE 0.9% 100 ML IVPB ONE; +fentaNYL (PF) 50 MCG/ML 2 ML AMP IV PRN; -metroNIDAZOLE-NS PMX 500 MG in SALINE 1 100ML.BAG IVPB ONE
[2016-12-10] MEDS ORDERED: ONDANSETRON 4 MG/2 ML VIAL IVP ONE (10:55)
[2016-12-10] MEDS ORDERED: LIDOCAINE 1% 20 ML VIAL (10MG/ML) FOR IV START INTRADERMA ONE (10:55)
[2016-12-10] MEDS ORDERED: DEXAMETHASONE SOD PHOSPHATE 10 MG/ML 1 ML VIAL IV ONE (10:57)
[2016-12-10] MEDS ORDERED: HEPARIN SODIUM,PORCINE 10,000 UNIT/ML 1 ML VIAL ONE (11:15)
[2016-12-10] MEDS ORDERED: HYDROmorphone (PF) 1 MG/ML ONE (11:15)
[2016-12-10] MEDS ORDERED: PHENYLEPHRINE-0.9% NACL SYG 1 MG/10 ML SYRINGE ONE (11:15)
[2016-12-10] MEDS ORDERED: NITROGLYCERIN-D5W PMX 50 MG in DEXTROSE/WATER 1 250ML.BAG IV SCH (11:15)
[2016-12-10] MEDS ORDERED: PHENYLEPHRINE 40 MG in SODIUM CHLORIDE 0.9% 250 ML IV SCH (11:15)
[2016-12-10] MEDS ORDERED: LABETALOL 5 MG/ML VIAL MDV ONE (11:15)
[2016-12-10] MEDS ORDERED: PROPOFOL 10 MG/ML 20 ML VIAL IV ONE (11:15)
[2016-12-10] MEDS ORDERED: VECURONIUM 10 MG VIAL IV ONE (11:15)
[2016-12-10] MEDS ORDERED: NEOSTIGMINE 1 MG/ML 10 ML VIAL ONE (11:15)
[2016-12-10] MEDS ORDERED: SUCCINYLCHOLINE CHLORIDE 100 MG/5 ML SYR IV ONE (11:15)
[2016-12-10] MEDS ORDERED: MIDAZOLAM 2 MG/2 ML VIAL ONE (11:15)
[2016-12-10] MEDS ORDERED: fentaNYL (PF) 50 MCG/ML 2 ML AMP ONE (11:15)
[2016-12-10] MEDS ORDERED: LIDOCAINE 1% INJ 10MG/ML (20 ML MDV) ONE (11:15)
[2016-12-10] MEDS ORDERED: GLYCOPYRROLATE 0.2 MG/ML 2 ML VIAL ONE (11:15)
--- NOTE | 2016-12-10 11:22 | P.OP ---
Date of Procedure: 12/10/16 Preoperative Diagnosis: Right internal carotid artery stenosis Postoperative Diagnosis: Right internal carotid artery stenosis Procedure(s) Performed: Right internal carotid endarterectomy and Dacron patch angioplasty Anesthesia: OSCARA Surgeon: Jamil Pollard Estimated Blood Loss (ml): 50 Pathology: other (Atherosclerotic plaque) Condition: stable Disposition: ICU Description of Procedure: Patient was brought electively to the operating room for right internal carotid artery endarterectomy after findings of a high-grade stenosis greater than 80% on angiogram patient was brought electively today prepped and draped in the usual sterile Betadine fashion under general anesthesia an incision on the anterior border of the right sternocleidomastoid dissection down into the carotid sheath identified the common carotid internal and external carotid arteries heavily burdened calcified plaque with high-grade stenosis at the bifurcation was identified heparin was administered and after 5 minutes of circulating heparin time the carotid artery was controlled and opened and a meticulous carotid endarterectomy was performed meticulous attention to detail with loupe magnification removed all intimal debris and plaque and the intima superiorly was tacked down with 7-0 Prolene suture we patch close the vessel after flushing with heparin saline solution once our satisfaction had identified that there was no debris left within the carotid artery the patch closure was accomplished with a Hemashield background patch with 6-0 Prolene suture backbleeding and venting the vessel in the usual fashion to avoid embolic debris once this was accomplished the clamps were completely removed the carotid artery was inspected and the Gelfoam and topical thrombin were placed the wounds were closed in layers after full hemostasis was achieved with Vicryl sutures and all layers needle sponge and instrument counts were correct thank you for typing
[2016-12-10] MEDS ORDERED: SODIUM CHLORIDE 0.9% 100 ML with ceFAZolin 2,000 MG IV ONE ×2 (11:26)
[2016-12-10] MEDS ORDERED: SODIUM CHLORIDE 0.9% 500 ML with HEPARIN SODIUM,PORCINE 5,000 UNIT IV ONE ×2 (11:54)
[2016-12-10] MEDS ORDERED: THROMBIN (BOVINE) 5,000 UNIT VIAL TOPICAL ONE (12:18)
[2016-12-10] MEDS ORDERED: GELATIN SPONGE,ABSORB (LARGE) 1 EACH SPONGE TOPICAL ONE (12:18)
[2016-12-10] MEDS: HYDROmorphone 1 MG/ML 1 ML SYRINGE IVP PRN ×2 (13:43→13:48)
[2016-12-10 14:09] LABS: Glucose,Whole Blood 114 mg/dL (75-99)
[2016-12-10] MEDS ORDERED: MAG HYDROX/AL HYDROX/SIMETH 30 ML CUP PO PRN (14:21)
[2016-12-10] MEDS ORDERED: BENZOCAINE/MENTHOL LOZENG 1 EACH LOZENGE MUCOUS MEM PRN (14:21)
[2016-12-10] MEDS ORDERED: TEMAZEPAM 15 MG CAP PO PRN (14:21)
[2016-12-10] MEDS ORDERED: TRIMETHOBENZAMIDE 100 MG/ML 2 ML VIAL IM PRN (14:21)
[2016-12-10] MEDS: LACTATED RINGERS 1,000 ML IV SCH (14:35)
[2016-12-10] MEDS: CLINDAMYCIN 900 MG in DEXTROSE 5% IN WATER 50 ML IVPB SCH ×4 (16:33→23:48)
[2016-12-10] MEDS: HEPARIN SODIUM,PORCINE 5,000 UNIT/ML 1 ML VIAL SQ SCH ×2 (16:34→23:49)
[2016-12-10] MEDS: HYDROcodone/APAP 7.5-325MG 1 EACH TAB PO PRN ×2 (17:19→20:54)
[2016-12-10] MEDS ORDERED: WARFARIN 7.5 MG TAB PO SCH (18:00)
[2016-12-10] MEDS: MORPHINE SULFATE 2 MG/ML SYRINGE IVP PRN ×2 (19:08→23:48)
[2016-12-10] MEDS: ALBUTEROL NEBULIZED 2.5 MG/3 ML INHALATION SCH (20:32)
[2016-12-10] MEDS: LATANOPROST 0.005% OPHTH DROPS 2.5 ML BTL BOTH EYES SCH (20:38)
[2016-12-11] MEDS: HYDROcodone/APAP 7.5-325MG 1 EACH TAB PO PRN (03:17)
[2016-12-11 03:23] LABS: Glucose,Whole Blood 108 mg/dL (75-99)
[2016-12-11 06:17] LABS: Anisocytosis Moderate; Basophils % (A) 0 %; CH 28.8; CHCM 31.1; Eosinophils # (A) 0.1 k/uL (0-0.7); Eosinophils % (A) 1 %; HCT 29.3 % (39.0-53.0); HDW 2.78; Hypochromasia Slight; Luc # (Auto) 0.06; Luc % (Auto) 1; Lymphocytes # (A) 1.2 k/uL (1.0-4.8); Lymphocytes % (A) 15 %; MCH 28.2 pg (25.0-35.0); MCHC 30.2 g/dL (31.0-37.0); MCV 93.1 fL (80.0-100.0); Macrocytosis Slight; Mean Platelet Volume 7.5; Monocytes # (A) 0.8 k/uL (0-1.0); Monocytes % (A) 10 %; Neutrophils # (A) 5.8 k/uL (1.3-7.7); Neutrophils % (A) 73 %; RBC 3.15 m/uL (4.30-5.90); RDW 20.2 % (11.5-15.5); WBC 7.9 k/uL (3.8-10.6); WBC (Perox) 8.09
[2016-12-11 06:25] LABS: HGB 8.9 gm/dL (13.0-17.5)
[2016-12-11 06:35] LABS: INR 1.1 (<1.2); Prothrombin Time 10.9 sec (9.0-12.0)
--- NOTE | 2016-12-11 08:12 | P.PN ---
Progress Note - Text Subjective: Patient has no subjective complaints Objective: Vital signs stable. Patient appears alert and oriented 3 The patient has some mild weakness of the left arm and leg. Its more mild discoordination and then loss of strength at this time. He does have a good left hand grasp. It seems to wax and wane a bit. Assessment: Hemodynamically stable post right carotid endarterectomy. Questionable neurologic findings and questionable in regards to their timing area Plan: We'll get a computed tomography scan without contrast. Continue to monitor closely.
[2016-12-11] MEDS: ALBUTEROL NEBULIZED 2.5 MG/3 ML INHALATION SCH ×2 (08:17→20:45)
[2016-12-11 08:23] LABS: ALT 25 U/L (21-72); AST 22 U/L (17-59); Alkaline Phosphatase 49 U/L (38-126); Anion Gap 6 mmol/L; Blood Urea Nitrogen 12 mg/dL (9-20); Calcium 8.6 mg/dL (8.4-10.2); Carbon Dioxide 28 mmol/L (22-30); Chloride 102 mmol/L (98-107); Glucose 108 mg/dL (74-99); Non-African American GFR(MDRD) >60 (>60 ml/min/1.73 sqM); Potassium 4.2 mmol/L (3.5-5.1); Sodium 136 mmol/L (137-145); Total Bilirubin 0.3 mg/dL (0.2-1.3); Total Protein 5.4 g/dL (6.3-8.2)
[2016-12-11] MEDS: LACTATED RINGERS 1,000 ML IV SCH (08:56)
[2016-12-11] MEDS: ATENOLOL 50 MG TAB PO SCH (08:57)
[2016-12-11] MEDS: ATORVASTATIN 40 MG TAB PO SCH (08:57)
[2016-12-11] MEDS: carBAMazepine 200 MG TAB PO SCH (08:59)
--- NOTE | 2016-12-11 09:29 | CT ---
EXAMINATION TYPE: CT brain wo con DATE OF EXAM: 12/11/2016 COMPARISON: 12/22/2013 INDICATION: lt side weakness/ post rt carotid artery surgery DLP: 1108.40 mGycm, Automated exposure control for dose reduction was used. CONTRAST: None CT of the brain is performed utilizing 3 mm thick sections through the posterior fossa and 3 mm thick sections through the remaining calvarium. Study is performed within 24 hours of arrival to the hosp ital. No abnormal hyperdensity is present to suggest an acute intracranial hemorrhage. No mass lesion is evident. There is hypodensity through the right posterior vertex cortex of the parietal-occipital region. Smal l cortical infarct is likely present. As a change from 12/22/2013. Minimal effacement of the adjacent sulci may be present. No other mass effect is evident. No midline shift is evident. No additional are as suspicious acute infarct is evident. Findings could be confirmed with MRI. Ventricles and sulci are appropriate for the patient age. Paranasal sinuses and mastoid air cells within the [id number] are clear. IMPRESSIONS: 1. Suspected acute cortical infarct right posterior parietal vertex. Findings could be confirmed wi MRI.
[2016-12-11] MEDS: HEPARIN SODIUM,PORCINE 5,000 UNIT/ML 1 ML VIAL SQ SCH ×3 (10:43→23:32)
[2016-12-11] MEDS: NICOTINE 21MG/24HR PATCH TRANSDERM SCH (10:44)
[2016-12-11] MEDS: ASPIRIN 81 MG PO SCH (10:44)
--- NOTE | 2016-12-11 11:35 | ECHOF ---
Referral Reason:s/p stroke, rule out [facility] [place] MEASUREMENTS -------- HEIGHT: 175.3 cm WEIGHT: 68.9 kg BP: 104/65 RVIDd: 2.9 cm (< 3.3) IVSd: 1.3 cm (0.6 - 1.1) LVIDd: 3.9 cm (3.9 - 5.3) LVPWd: 1.2 cm (0.6 - 1.1) IVSs: 1.9 cm LVIDs: 2.4 cm LVPWs: 1.7 cm LA Diam: 3.0 cm (2.7 - 3.8) LAESV Index (A-L): 14.69 ml/m Ao Diam: 3.6 cm (2.0 - 3.7) AV Cusp: 1.9 cm (1.5 - 2.6) MV EXCURSION: 15.488 mm (> 18.000) MV EF SLOPE: 65 mm/s (70 - 150) EPSS: 0.4 cm MV E Jesus: 0.88 m/s MV DecT: 218 ms MV A Jesus: 0.94 m/s MV E/A Ratio: 0.93 RAP: 5.00 mmHg RVSP: 27.65 mmHg FINDINGS -------- Sinus rhythm. This was a technically adequate study. The left ventricular size is normal. There is mild concentric left ventricular hypertrophy. Overall left ventricular systolic function is normal with, an EF between 60 - 65 %. The right ventricle is normal in size. Normal LA size by volume 22+/-6 ml/m2. The right atrium is normal in size. There is mild aortic valve sclerosis. Mild mitral annular calcification present. Mild tricuspid regurgitation present. Right ventricular systolic pressure is normal at < 35 mmHg. There is no pulmonic regurgitation present. The aortic root size is normal. Normal inferior vena cava with normal inspiratory collapse consistent with estimated right atrial pressure of 5 mmHg. There is no pericardial effusion. CONCLUSIONS -------- 1. Sinus rhythm. 2. Mild mitral annular calcification present. 3. Mild tricuspid regurgitation present. 4. Right ventricular systolic pressure is normal at < 35 mmHg. 5. There is no pulmonic regurgitation present. 6. The aortic root size is normal. 7. Normal inferior vena cava with normal inspiratory collapse consistent with estimated right atrial pressure of 5 mmHg. 8. There is no pericardial effusion. 9. This was a technically adequate study. 10. The left ventricular size is normal. 11. There is mild concentric left ventricular hypertrophy. 12. Overall left ventricular systolic function is normal with, an EF between 60 - 65 %. 13. The right ventricle is normal in size. 14. Normal LA size by volume 22+/-6 ml/m2. 15. The right atrium is normal in size. 16. There is mild aortic valve sclerosis. BALING MACHINE OPERATOR: Sade Stiles RDCS
[2016-12-11] MEDS ORDERED: guaiFENesin 600 MG TABLET.ER PO PRN (12:16)
--- NOTE | 2016-12-11 16:58 | P.CONS ---
History of Present Illness - Chief Complaint Left hemiplegia - History of Present Illness I had the arm to see patient for inpatient rehab consultation with regard to gait disturbance and left hemiplegia. Patient was admitted for and underwent elective right carotid endarterectomy, performed yesterday. Last night, apparently, suffered acute onset left-sided weakness. Head CT demonstrates right posterior parietal attenuation. MRI pending. PT, OT prescribed. I have added AUTOMOTIVE DRIVABILITY TECHNICIAN. Previous functional history as elicited patient: 55-year-old right-handed white male who is lives in one floor home alone. Son disability. Describes independent with own cooking, laundry, standing shower and gait without device. Does not drive. Dr. Octaviano Noble regular doctor. Family history of mother with cancer. Review of Systems Review of systems: ENT: Denies sneezes or discharge. Eyes: Denies discharge or photophobia. Cardiac: Denies chest pain or palpitation. Pulmonary: Denies cough or shortness of breath. Gastrointestinal: Denies nausea, emesis, constipation, diarrhea. Genitourinary: Denies discharge or frequency. Musculoskeletal: Denies muscle or bone aches. Neurologic: Left-sided weakness and numbness. Headache. Endocrine: Denies shakes or sweats. Oncology: Denies cancers. Dermatologic: Denies rash, itching, pruritus. ALLERGY/immunology: Denies sneezes, rashes. Past Medical History Past Medical History: COPD, Deep Vein Thrombosis (DVT), Eye Disorder, GI Bleed, Hypertension, Osteoarthritis (OA), Pneumonia, Pulmonary Embolus (PE), Respiratory Disorder, Seizure Disorder Additional Past Medical History / Comment(s): Respiratory failure with O2 at 2l , tracheobronchitis, pleurisy, bollous lung disease, bilateral pulmonary embolus , last SEIZURE 2016, PERFORATED ULCER 2005 , R leg DVT, CHRONIC BACK PAIN, DDD/ DJD, TIA, MIGRAINES, bilateral TINNITUS, WAS TOLD 20 YEARS AGO HE HAD ALCOHOLIC HEPATITIS, bilateral GLAUCOMA, History of Any Multi-Drug Resistant Organisms: None Reported Past Surgical History: Bowel Resection, Hernia Repair, Orthopedic Surgery Additional Past Surgical History / Comment(s): ulcer repair, EGD/COLONOSCOPY,, JOSIAH KNEE ARTHROSCOPY, abdominal hernia repair. 05/2016 bowel resection with colostomy Past Anesthesia/Blood Transfusion Reactions: Motion Sickness Additional Past Alcohol Use History / Comment(s): Pt states he started smoking as a teen and smoking 6-7 cigarettes daily. He states he has hx of alcoholism - last 9 weeks ago - Past Family History Sister(s) Family Medical History: Cancer Additional Family Medical History / Comment(s): SKIN CANCER Mother Family Medical History: Cancer Additional Family Medical History / Comment(s): BREAST Father Additional Family Medical History / Comment(s): YELLOW JAUNDICE, MALARIA FROM WW2, EMPHYSEMA Brother(s) Family Medical History: Cancer Additional Family Medical History / Comment(s): SKIN Medications and Allergies Home Medications Medication Instructions Recorded Confirmed Type carBAMazepine [TEGretol] 200 mg PO QAM 12/22/13 12/10/16 History Latanoprost [Xalatan 0.005%] 1 drop BOTH EYES HS 05/29/16 12/10/16 History Aspirin 81 mg PO DAILY chew 06/13/16 12/10/16 Rx Nicotine 21Mg/24Hr Patch [Habitrol] 1 patch TRANSDERM DAILY #30 patch 06/13/16 12/10/16 Rx Albuterol Nebulized [Ventolin 2.5 mg INHALATION RT-BID 08/25/16 12/10/16 History Nebulized] Atenolol [Tenormin] 50 mg PO DAILY 08/25/16 12/10/16 History Warfarin [Coumadin] 7.5 mg PO DAILY 08/25/16 12/10/16 History HYDROcodone/APAP 7.5-325MG [[place] 1 tab PO Q4H PRN 12/10/16 12/10/16 History 7.5-325] Allergies Allergy/AdvReac Type Severity Reaction Status Date / Time varenicline tartrate Allergy Intermediate Rash/Hives Verified 12/10/16 13:00 [From Chantix] ampicillin Allergy Rash/Hives Verified 12/10/16 13:00 Physical Exam Vitals: Vital Signs Temp Pulse Resp BP Pulse Ox 12/11/16 15:00 74 20 97/61 97 12/11/16 14:00 83 16 101/67 97 12/11/16 13:00 70 12 107/67 97 12/11/16 12:00 64 13 116/68 99 12/11/16 11:00 77 18 104/65 99 12/11/16 10:00 76 15 104/69 96 12/11/16 09:00 71 12 116/94 12/11/16 08:24 75 12/11/16 08:19 76 12/11/16 08:00 78 12 113/68 12/11/16 07:00 79 12 99 12/11/16 06:00 67 12 112/65 98 12/11/16 05:00 66 11 L 112/65 99 12/11/16 04:00 80 17 95/63 99 12/11/16 03:00 68 13 124/84 97 12/11/16 02:00 76 9 L 103/72 91 L 12/11/16 01:00 70 10 L 103/67 91 L 12/11/16 00:00 97.7 F 68 10 L 109/65 98 12/10/16 23:02 68 11 L 111/66 96 12/10/16 23:00 70 11 L 111/66 96 12/10/16 22:00 82 20 98/62 94 L 12/10/16 21:00 75 12 119/69 97 12/10/16 20:50 80 12/10/16 20:32 78 12/10/16 20:30 75 11 L 119/69 99 12/10/16 20:15 72 10 L 119/69 99 12/10/16 20:00 71 18 114/68 99 12/10/16 19:45 72 19 114/68 99 12/10/16 19:30 73 13 114/68 99 12/10/16 19:15 71 11 L 114/68 99 12/10/16 19:00 74 11 L 100/61 99 12/10/16 18:45 80 30 H 100/61 94 L 12/10/16 18:30 88 23 100/61 98 12/10/16 18:15 73 18 100/61 99 12/10/16 18:00 76 23 100/66 94 L 12/10/16 17:45 73 12 100/66 96 12/10/16 17:30 71 14 100/66 95 12/10/16 17:15 74 13 100/66 99 12/10/16 17:00 68 13 106/64 99 Intake and Output 12/11/16 12/11/16 12/11/16 06:59 14:59 22:59 Intake Total 525 75 Output Total 225 408 60 Balance 300 -333 -60 Intake: IV 525 75 Lactated Ringers 1,000 ml 525 75 @ 75 mls/hr IV .[id number] [facility] Rx#:[id number] Output: Urine 225 408 60 Other: Voiding Method Indwelling Catheter Indwelling Catheter Weight 69.1 kg ABP, PAP, CO, CI - Last 8 Hours Arterial Blood Pressure 118/77 Arterial Blood Pressure 112/102 Arterial Blood Pressure 116/100 Arterial Blood Pressure 119/47 Skin: Good color, texture, turgor. General: Medium build and comfortable appearance. Head: Normocephalic, atraumatic. Eyes: Symmetric. Pupils equal round. Ears: Symmetric. Hearing within normal limits. Mouth: Clear. Neck: Supple. Carotid without bruit. Cardiac: Regular rate and rhythm. Lungs: Clear anteriorly and posteriorly. Abdomen: Soft active nontender. Extremities: Normal tone. Neurological: Mental status: Alert, cooperative, pleasant. Cranial nerves: Symmetric facial tone and trapezius. Motor: Normal strength and isolation right side. Left arm flaccid and left leg in poor extension synergy. Sensation: Intact right side and decreased left side. DTRs: Blunted throughout. Mobility: Sits and stands with nursing assistance. Results CBC & Chem 7: 12/11/16 06:05 12/11/16 06:05 Labs: Abnormal Lab Results - Last 24 Hours (Table) 12/11/16 12/11/16 12/11/16 Range/Units 03:22 06:05 06:05 RBC 3.15 L (4.30-5.90) m/uL Hgb 8.9 L D (13.0-17.5) gm/dL Hct 29.3 L (39.0-53.0) % MCHC 30.2 L (31.0-37.0) g/dL RDW 20.2 H (11.5-15.5) % Sodium 136 L (137-145) mmol/L Creatinine 0.54 L (0.66-1.25) mg/dL Glucose 108 H (74-99) mg/dL POC Glucose (mg/dL) 108 H (75-99) mg/dL Total Protein 5.4 L (6.3-8.2) g/dL Albumin 3.2 L (3.5-5.0) g/dL CT Scan - head: report reviewed (Right posterior parietal attenuation) MRI - head: report reviewed (Later tonight.) Assessment and Plan (1) Acute exacerbation of chronic obstructive airways disease Status: Acute Plan: Impression: 1. Gait disturbance. 2. Acute stroke with left a plegia. 3. Status post right CEA. 4. History of DVT and PE. 5. Hypertension. 6. COPD with current exacerbation. 7. History of seizure disorder. Some plan: PT and OT are ready prescribed and I have added AUTOMOTIVE DRIVABILITY TECHNICIAN. I will follow closely with yourself regarding possible benefit of inpatient rehab.
[2016-12-11] MEDS: ACETAMINOPHEN TAB 325 MG TAB PO PRN ×2 (17:12→21:10)
--- NOTE | 2016-12-11 18:32 | MR ---
EXAMINATION TYPE: MR brain wo con DATE OF EXAM: 12/11/2016 COMPARISON: NONE HISTORY: lt side weakness/ post rt caraotid artery sx. prev on syn, Acute rt hemispheric stroke Standard multiplanar, multisequence MRI departmental protocol Multiplanar, multisequence images of the brain were acquired. Diffusion weighted imaging was performe d. FINDINGS: On the diffusion weighted images there are several cortical areas of abnormal increased sig nal involving the right cerebral hemisphere. The largest is in the right posterior parietal lobe that measures 2.5 x 2.5 cm. There are smaller cortical areas in the right posterior frontal lobe that marcial sure up to 1.5 to 2 cm. There are 1.5 to 1 cm foci of increased signal in the white matter right patrice etal lobe consistent with subacute infarcts. There is a 5 mm focus of increased signal in the left po sterior frontal lobe cortex consistent with cortical ischemia. There is no midline shift. There is no sign of intracranial hemorrhage. The brainstem is intact. Cerebellum is intact. Sella turcica appear s normal. There is mild thinning of the corpus callosum. IMPRESSION: Multiple areas of abnormal signal in the right cerebral hemisphere consistent with acute or subacute embolic infarcts. These are predominantly in the right middle cerebral artery distribution. There is evidence of 5 mm infarct left posterior frontal lobe. There is cortical increased signal on the diffu iame images in both frontal lobes at the convexities that is thought to be artifactual. These areas a ppear normal on the FLAIR images.
[2016-12-11] MEDS: LATANOPROST 0.005% OPHTH DROPS 2.5 ML BTL BOTH EYES SCH (21:10)
--- NOTE | 2016-12-11 21:10 | CONS ---
CONSULTATION REASON FOR CONSULTATION: Medical management, status post right carotid endarterectomy. HISTORY OF PRESENT ILLNESS: This is a 55-year-old white male, status post right carotid endarterectomy for medical management consult. He has right facial aphasia. He has left arm and left leg hemiparesis. He has had acute CVA, status post surgery and his right carotid endarterectomy. ACTIVE MEDICATIONS: Active medications include: 1. Ventolin inhaler. He has history of COPD. 2. Tenormin 50 daily. 3. Lipitor 40 daily. 4. Tegretol 200 daily. 5. Heparin 5000 subcutaneously q.8. 6. Nicotine patch. 7. Restoril 15 at bedtime. 8. Tigan p.r.n. for nausea. 9. Zoloft 7.5 mg daily. REVIEW OF SYSTEMS: PSYCH: Negative. NEURO: Negative. VASCULAR: As mentioned above. IMMUNE: Negative. INTEGUMENT: Negative. OPHTHALMOLOGIC: Negative. Other 14-point review of systems negative except as mentioned in HPI. The patient is in ICU at this time. PHYSICAL EXAMINATION: The patient is examined in the ICU. Temperature is 98.6, pulse 69 to 75, respirations 18 to 20. He is sitting up in the chair with left arm and left leg hemiparesis, right facial flaccid. Blood pressure is 111 to 120s to 130s over 60s to 80s. Oxygen 97% on 2 L. CARDIOVASCULAR: S1, S2. LUNGS: Scattered wheeze x4. MUSCULOSKELETAL: Left arm and left leg paresis. Minimal movement, maybe 1 to 2 out of 5. 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 Right facial aphasia. Speech is slurred. ASSESSMENT: 1. Acute cerebrovascular accident, status post right carotid endarterectomy. 2. History of pulmonary embolism. 3. History of hypertension. 4. History of end-stage chronic obstructive pulmonary disease. 5. History of nicotine addiction. 6. History of alcoholism. Continue with current treatment. Workup for stroke, including rehab consultation, is being done. protocol is being done. Monitor for signs of difficulty breathing. Stroke workup is in place. Consult in ICU 45 minutes. MMODL / IJN: [id number] /
--- NOTE | 2016-12-11 21:26 | P.CNNES ---
History of Present Illness Consult date: 12/11/16 Reason for Consult: Patient with left-sided weakness following right carotid endarterectomy. History of Present Illness: This patient is a 55-year-old right-handed white male who has a long-standing history of high-grade right carotid artery stenosis. Patient is undergone angiogram studies that revealed him to have greater than 80% blockage of the right internal carotid artery. Patient was scheduled for elective right carotid endarterectomy by Dr. Jamil Pollard which was completed on 12/10/2016. Patient was postoperative day one this morning when he was evaluated by Dr. Munoz in the intensive care unit. On examination this morning he was noted to demonstrate evidence of left-sided hand weakness. He also complained of left leg weakness which is more noticeable when he was trying to stand. Apparently the symptoms were waxing and waning since his surgery. The patient was sent for a computed tomography scan of the brain this morning. CAT scan revealed suspected acute cortical infarct in the right posterior parietal vertex. Based on this CAT scan and MRI of the brain was recommended. MRI of the brain was completed today and revealed evidence of multiple areas of abnormal signal in the right cerebral hemisphere consistent with acute or subacute embolic infarcts. We review the actual MRI films today with the patient in detail. At least 4 areas of acute infarction or noted in the right hemisphere. There was evidence of a smaller 5 mm infarct in the left posterior frontal lobe as well. These findings are highly suggestive of embolic infarcts. The patient does complain of some mild headache pain in the frontal area for the past 24 hours. He has been given some pain medication for treatment. Apparently he has been using 2 extra strength Tylenol. Review of his MRI of the brain fails to reveal any evidence of vasogenic edema surrounding these areas of infarction. There was no midline shift or any signs of herniation. The patient does have a history of pulmonary embolus and DVT in the past. He had been taking anticoagulant treatment for this. This is currently been placed on hold given his recent surgery and stroke. The patient is being evaluated for possible inpatient rehab treatment. We are awaiting further recommendations from Dr. Villa. Patient does demonstrate significant left-sided hemiparesis secondary to his recent stroke. He is also been having some difficulty with his gait earlier today when he was attempting to walk with a walker. Patient will need ongoing inpatient rehab treatment for his recent stroke. We would recommend that he continue with PT OT evaluation and treatment. Neurology is now been consulted for further evaluation and recommendations. Review of Systems Constitutional: Denies chills, Denies fever Eyes: denies blurred vision, denies pain Ears, nose, mouth and throat: Denies headache, Denies sore throat Cardiovascular: Denies chest pain, Denies shortness of breath Respiratory: Denies cough Gastrointestinal: Denies abdominal pain, Denies diarrhea, Denies nausea, Denies vomiting Musculoskeletal: Denies myalgias Integumentary: Denies pruritus, Denies rash Neurological: Reports balance difficulties, Reports gait dysfunction, Reports headaches, Reports motor disturbance, Reports paresthesias, Reports tingling, Denies numbness, Denies weakness Psychiatric: Denies anxiety, Denies depression Endocrine: Denies fatigue, Denies weight change Past Medical History Past Medical History: COPD, Deep Vein Thrombosis (DVT), Eye Disorder, GI Bleed, Hypertension, Osteoarthritis (OA), Pneumonia, Pulmonary Embolus (PE), Respiratory Disorder, Seizure Disorder Additional Past Medical History / Comment(s): Respiratory failure with O2 at 2l , tracheobronchitis, pleurisy, bollous lung disease, bilateral pulmonary embolus , last SEIZURE 2015, PERFORATED ULCER 2005 , R leg DVT, CHRONIC BACK PAIN, DDD/ DJD, TIA, MIGRAINES, bilateral TINNITUS, WAS TOLD 20 YEARS AGO HE HAD ALCOHOLIC HEPATITIS, bilateral GLAUCOMA, History of Any Multi-Drug Resistant Organisms: None Reported Past Surgical History: Bowel Resection, Hernia Repair, Orthopedic Surgery Additional Past Surgical History / Comment(s): ulcer repair, EGD/COLONOSCOPY,, JOSIAH KNEE ARTHROSCOPY, abdominal hernia repair. 05/2016 bowel resection with colostomy Past Anesthesia/Blood Transfusion Reactions: Motion Sickness Additional Past Alcohol Use History / Comment(s): Pt states he started smoking as a teen and smoking 6-7 cigarettes daily. He states he has hx of alcoholism - last 9 weeks ago - Past Family History Sister(s) Family Medical History: Cancer Additional Family Medical History / Comment(s): SKIN CANCER Mother Family Medical History: Cancer Additional Family Medical History / Comment(s): BREAST Father Additional Family Medical History / Comment(s): YELLOW JAUNDICE, MALARIA FROM WW2, EMPHYSEMA Brother(s) Family Medical History: Cancer Additional Family Medical History / Comment(s): SKIN Medications and Allergies Home Medications Medication Instructions Recorded Confirmed Type carBAMazepine [TEGretol] 200 mg PO QAM 12/22/13 12/10/16 History Latanoprost [Xalatan 0.005%] 1 drop BOTH EYES HS 05/29/16 12/10/16 History Aspirin 81 mg PO DAILY chew 06/13/16 12/10/16 Rx Nicotine 21Mg/24Hr Patch [Habitrol] 1 patch TRANSDERM DAILY #30 patch 06/13/16 12/10/16 Rx Albuterol Nebulized [Ventolin 2.5 mg INHALATION RT-BID 08/25/16 12/10/16 History Nebulized] Atenolol [Tenormin] 50 mg PO DAILY 08/25/16 12/10/16 History Warfarin [Coumadin] 7.5 mg PO DAILY 08/25/16 12/10/16 History HYDROcodone/APAP 7.5-325MG [[place] 1 tab PO Q4H PRN 12/10/16 12/10/16 History 7.5-325] Allergies Allergy/AdvReac Type Severity Reaction Status Date / Time varenicline tartrate Allergy Intermediate Rash/Hives Verified 12/10/16 13:00 [From Chantix] ampicillin Allergy Rash/Hives Verified 12/10/16 13:00 Physical Examination - Vital Signs Vital Signs: Vital Signs Temp Pulse Resp BP Pulse Ox 12/11/16 20:45 73 12/11/16 20:00 98.6 F 69 18 111/66 97 12/11/16 19:00 73 20 132/68 97 12/11/16 18:35 77 17 132/68 95 12/11/16 17:00 75 26 H 121/85 95 12/11/16 16:00 97.8 F 69 17 102/62 94 L 12/11/16 15:00 74 20 97/61 97 12/11/16 14:00 83 16 101/67 97 12/11/16 13:00 70 12 107/67 97 12/11/16 12:00 64 13 116/68 99 12/11/16 11:00 77 18 104/65 99 12/11/16 10:00 76 15 104/69 96 12/11/16 09:00 71 12 116/94 12/11/16 08:24 75 12/11/16 08:19 76 12/11/16 08:00 78 12 113/68 09/21/17 07:00 79 12 99 12/11/16 06:00 67 12 112/65 98 12/11/16 05:00 66 11 L 112/65 99 12/11/16 04:00 80 17 95/63 99 12/11/16 03:00 68 13 124/84 97 12/11/16 02:00 76 9 L 103/72 91 L 12/11/16 01:00 70 10 L 103/67 91 L 12/11/16 00:00 97.7 F 68 10 L 109/65 98 12/10/16 23:02 68 11 L 111/66 96 12/10/16 23:00 70 11 L 111/66 96 12/10/16 22:00 82 20 98/62 94 L 12/10/16 21:00 75 12 119/69 97 Intake and Output 12/11/16 12/11/16 12/11/16 06:59 14:59 22:59 Intake Total 525 75 Output Total 225 408 292 Balance 300 -333 -292 Intake: IV 525 75 Lactated Ringers 1,000 ml 525 75 @ 75 mls/hr IV .[id number] [facility] Rx#:[id number] Output: Urine 225 408 292 Other: Voiding Method Indwelling Catheter Indwelling Catheter Indwelling Catheter Weight 69.1 kg - Constitutional General appearance: cooperative - EENT EENT: PERRL, mucous membranes moist - Respiratory Respiratory: lungs clear, normal breath sounds - Cardiovascular Cardiovascular: regular rate, normal S1, normal S2 Extremities: no peripheral edema bilaterally - Gastrointestinal Gastrointestinal: normoactive bowel sounds - Integumentary Integumentary: normal - Neurologic Cranial nerve examination: PERRL, EOMI, VFF, V1/V2/V3 grossly intact, face symmetric, tongue midline, intact gag reflex, intact corneal reflex, normal palatal elevation Speech examination: intact Sensorimotor examination: hemiparesis Motor examination - right side: 55: biceps, triceps, wrist flexion, wrist extension, hog operator, hip flexors, knee extensors, dorsiflexion, toe extension (EHL) , plantarflexion Motor examination - left side: 35: biceps, triceps, wrist flexion, wrist extension, hog operator, hip flexors, knee extensors, dorsiflexion, toe extension (EHL) , plantarflexion Detailed sensory examination: intact Reflex and gait examination: intact Reflexes: 1+: ankle, bicep, knee, tricep Cerebellar examination: dysmetria - Musculoskeletal Musculoskeletal: no pain - Psychiatric Psychiatric: mood/affect appropriate, cooperative Results - Laboratory Findings CBC and BMP: 12/11/16 06:05 12/11/16 06:05 Abnormal Lab Findings: Abnormal Labs 12/10/16 12/11/16 12/11/16 14:07 03:22 06:05 RBC 3.15 L Hgb 8.9 L D Hct 29.3 L MCHC 30.2 L RDW 20.2 H Sodium Creatinine Glucose POC Glucose (mg/dL) 114 H 108 H Total Protein Albumin 12/11/16 06:05 RBC Hgb Hct MCHC RDW Sodium 136 L Creatinine 0.54 L Glucose 108 H POC Glucose (mg/dL) Total Protein 5.4 L Albumin 3.2 L Assessment and Plan (1) Acute right arterial ischemic stroke, MCA (middle cerebral artery) Status: Acute Code(s): I63.511 - CEREB INFRC D/T UNSP OCCLS OR STENOS OF RIGHT MID CEREB ART (2) Headache Status: Acute Code(s): R51 - HEADACHE (3) DVT (deep venous thrombosis) Status: Acute Code(s): I82.409 - ACUTE EMBOLISM AND THOMBOS UNSP DEEP VN UNSP LOWER EXTREMITY (4) Pulmonary embolism Status: Acute Code(s): I26.99 - OTHER PULMONARY EMBOLISM WITHOUT ACUTE COR PULMONALE Plan: This patient is a 55-year-old male who underwent a elective right carotid endarterectomy procedure yesterday by Dr. Jamil Pollard. The patient apparently did well postoperatively. He was then transferred to the intensive care unit for close monitoring. This morning the patient was seen on rounds by Dr. Munoz. He was noted to demonstrate some evidence of left sided arm weakness. He was sent for a computed tomography scan of the brain this morning from the ICU which did come back suggesting an acute stroke involving the right posterior parietal vertex. MRI of the brain was recommended. Patient was able to complete MRI of the brain this afternoon. MRI films were reviewed. The MRI report indicates multiple areas of acute stroke involving the right cerebral hemisphere which was felt to be acute or subacute consistent with embolic infarcts. There was also an area involving the left posterior frontal lobe as well. We did review the results of the MRI today with the patient in detail. He was seen by Dr. Villa today for possible inpatient rehab. His major neurological deficit at this time is left-sided hemiparesis. He would benefit from aggressive inpatient rehab for further poststroke recovery period we will continue close neurological follow-up for this patient in the intensive care unit. His overall prognosis at this time remains very guarded. Time with Patient: Greater than 30
[2016-12-12] MEDS: ACETAMINOPHEN TAB 325 MG TAB PO PRN ×2 (01:05→14:58)
[2016-12-12 05:40] LABS: Anisocytosis Slight; Basophils % (A) 0 %; CH 28.7; CHCM 30.1; Eosinophils # (A) 0.2 k/uL (0-0.7); Eosinophils % (A) 2 %; HCT 31.3 % (39.0-53.0); HDW 2.65; HGB 9.3 gm/dL (13.0-17.5); Hypochromasia Moderate; Luc # (Auto) 0.12; Luc % (Auto) 2; Lymphocytes # (A) 1.1 k/uL (1.0-4.8); Lymphocytes % (A) 18 %; MCH 28.4 pg (25.0-35.0); MCHC 29.7 g/dL (31.0-37.0); MCV 95.6 fL (80.0-100.0); Macrocytosis Slight; Mean Platelet Volume 7.4; Monocytes # (A) 0.6 k/uL (0-1.0); Monocytes % (A) 9 %; Neutrophils # (A) 4.5 k/uL (1.3-7.7); Neutrophils % (A) 69 %; RBC 3.28 m/uL (4.30-5.90); RDW 19.7 % (11.5-15.5); WBC 6.5 k/uL (3.8-10.6)
[2016-12-12 05:53] LABS: ALT 35 U/L (21-72); AST 19 U/L (17-59); Alkaline Phosphatase 55 U/L (38-126); Anion Gap 7 mmol/L; Blood Urea Nitrogen 11 mg/dL (9-20); Calcium 8.6 mg/dL (8.4-10.2); Carbon Dioxide 25 mmol/L (22-30); Chloride 101 mmol/L (98-107); Cholesterol 196 mg/dL (<200); Glucose 84 mg/dL (74-99); HDL Cholesterol 70 mg/dL (40-60); INR 1.1 (<1.2); Non-African American GFR(MDRD) >60 (>60 ml/min/1.73 sqM); Potassium 4.4 mmol/L (3.5-5.1); Sodium 133 mmol/L (137-145); Total Bilirubin 0.2 mg/dL (0.2-1.3); Total Protein 5.5 g/dL (6.3-8.2)
[2016-12-12] MEDS: ALBUTEROL NEBULIZED 2.5 MG/3 ML INHALATION SCH ×2 (08:06→19:29)
--- NOTE | 2016-12-12 08:30 | P.PN ---
Subjective Principal diagnosis: Right internal carotid artery stenosis. Current tobacco abuse. History of COPD , DVT, GI bleed, hypertension, osteoarthritis, pneumonia, pulmonary embolus, seizure disorder, alcoholic hepatitis, bowel resection with colostomy. POD #2 right internal carotid endarterectomy and Dacron patch angioplasty. Postoperative stroke, right-sided acute/subacute infarcts with apparent middle cerebral artery distribution per MRI, possible complications post carotid endarterectomy surgery. Patient's currently sitting up in bed in no acute distress. Denies pain. Able to move left side this morning better than yesterday morning, however patient is still weak on the left side. He had both brain CT and MRI yesterday confirming right-sided stroke. Objective - Vital Signs Vital signs: Vital Signs Temp 98.8 F 12/12/16 04:00 Pulse 76 12/12/16 06:00 Resp 11 L 12/12/16 06:00 BP 139/84 12/12/16 06:00 Pulse Ox 100 12/12/16 06:00 Intake & Output 12/11/16 12/12/16 12/12/16 18:59 06:59 18:59 Intake Total 75 Output Total 668 602 Balance -593 -602 Weight 67.4 kg Intake: IV 75 Lactated Ringers 1,000 ml 75 @ 75 mls/hr IV .[id number] [facility] Rx#:[id number] Output: Urine 668 602 Other: Voiding Method Indwelling Catheter Indwelling Catheter ABP, PAP, CO, CI - Last Documented Arterial Blood Pressure 118/77 - Constitutional General appearance: Present: cooperative, no acute distress - Respiratory Details: Lungs sounds diminished bilaterally. Respirations even, nonlabored. Currently on 3 L nasal cannula with oxygen saturation 97%. Only able to achieve 500 mL on his incentive spirometry with poor effort. - Cardiovascular Details: S1, S2 present. Regular rate and rhythm, sinus rhythm on telemetry. Palpable pulses bilaterally. No edema present. - Gastrointestinal Gastrointestinal Comment(s): Abdomen soft, nontender, nondistended. Active bowel sounds 4 quadrants. Tolerating diet. - Genitourinary Genitourinary Comment(s): Carter present draining clear, yellow urine. Output 45-75 mL per hour. Carter to be discontinued. - Integumentary Integumentary Comment(s): Right neck incision well approximated with Steri-Strips. No drainage present. - Neurologic Neurologic Comment(s): Full movement on right side. Left arm weak, patient able to squeeze hands and lift arm although not able to maintain arm in the air for any length of time. Left lower extremity weak, patient is able to lift his leg off the bed and maintain for short time before drifting back to bed. - Musculoskeletal Musculoskeletal: Present: left sided weakness - Psychiatric Psychiatric: Present: A&O x's 3, appropriate affect - Allied health notes Allied health notes reviewed: nursing - Labs CBC & Chem 7: 12/12/16 05:24 12/12/16 05:24 Labs: Abnormal Lab Results - Last 24 Hours (Table) 12/11/16 12/12/16 12/12/16 Range/Units 06:05 05:24 05:24 RBC 3.28 L (4.30-5.90) m/uL Hgb 9.3 L (13.0-17.5) gm/dL Hct 31.3 L (39.0-53.0) % MCHC 29.7 L (31.0-37.0) g/dL RDW 19.7 H (11.5-15.5) % Sodium 136 L 133 L (137-145) mmol/L Creatinine 0.54 L 0.60 L (0.66-1.25) mg/dL Glucose 108 H (74-99) mg/dL Total Protein 5.4 L 5.5 L (6.3-8.2) g/dL Albumin 3.2 L 3.3 L (3.5-5.0) g/dL LDL Cholesterol, Calc 106 H (0-99) mg/dL HDL Cholesterol 70 H (40-60) mg/dL - Imaging and Cardiology CT Scan - head: report reviewed, image reviewed MRI - head: report reviewed Assessment and Plan (1) Carotid stenosis, right Status: Acute (2) Status post carotid endarterectomy Status: Acute (3) History of pulmonary embolism Status: Acute (4) Hypertension Status: Acute (5) COPD (chronic obstructive pulmonary disease) Status: Acute (6) Tobacco dependence Status: Acute (7) History of alcoholism Status: Acute (8) Acute right arterial ischemic stroke, MCA (middle cerebral artery) Status: Acute Plan: 1. Continue aspirin, statin. 2. Hold Coumadin for 5-7 days to allow endarterectomy site to heal. 3. PT, OT, speech therapy to see and evaluate patient for rehabilitation. 4. Risk factor modification, encourage smoking cessation, encourage ETOH cessation. 5. Dr. Villa consulted for inpatient rehab. Neurology recommendations received. 6. Medical comorbidities to be managed by primary care service. Transfer service to Dr. Noble per his request. 7. Patient to be transferred out of ICU to [facility] today. 8. Patient may be transferred to rehab facility from our standpoint when bed available and insurance authorization is obtained. 9. Will continue to monitor while in the hospital. Time with Patient: Greater than 30
[2016-12-12] MEDS: ATENOLOL 50 MG TAB PO SCH (08:40)
[2016-12-12] MEDS: HEPARIN SODIUM,PORCINE 5,000 UNIT/ML 1 ML VIAL SQ SCH ×3 (08:40→23:40)
[2016-12-12] MEDS: carBAMazepine 200 MG TAB PO SCH (08:40)
[2016-12-12] MEDS: ASPIRIN 81 MG PO SCH (08:40)
[2016-12-12] MEDS: ATORVASTATIN 40 MG TAB PO SCH (08:41)
[2016-12-12] MEDS: NICOTINE 21MG/24HR PATCH TRANSDERM SCH (08:41)
--- NOTE | 2016-12-12 13:59 | FL ---
COMPARISON: NONE DATE OF EXAM: 12/12/2016 HISTORY: Dysphasia A number of thin and thick substances were ingested under the care of the department of speech pathol ogy. There is no evidence of aspiration or penetration. There is no evidence of obstruction. IMPRESSION: 1. No evidence of aspiration or penetration.
[2016-12-12] MEDS: HYDROcodone/APAP 7.5-325MG 1 EACH TAB PO PRN ×2 (15:08→20:12)
[2016-12-12] MEDS: LATANOPROST 0.005% OPHTH DROPS 2.5 ML BTL BOTH EYES SCH (20:12)
[2016-12-13] MEDS: HYDROcodone/APAP 7.5-325MG 1 EACH TAB PO PRN ×4 (03:58→20:18)
[2016-12-13 07:23] LABS: Anisocytosis Slight; Basophils % (A) 0 %; CH 27.9; CHCM 29.3; Eosinophils # (A) 0.3 k/uL (0-0.7); Eosinophils % (A) 4 %; HCT 31.9 % (39.0-53.0); HDW 2.69; HGB 9.6 gm/dL (13.0-17.5); Hypochromasia Marked; Luc # (Auto) 0.16; Luc % (Auto) 2; Lymphocytes # (A) 1.3 k/uL (1.0-4.8); Lymphocytes % (A) 18 %; MCH 28.8 pg (25.0-35.0); MCHC 30.2 g/dL (31.0-37.0); MCV 95.6 fL (80.0-100.0); Macrocytosis Slight; Mean Platelet Volume 7.3; Monocytes # (A) 0.6 k/uL (0-1.0); Monocytes % (A) 8 %; Neutrophils # (A) 4.9 k/uL (1.3-7.7); Neutrophils % (A) 68 %; RBC 3.34 m/uL (4.30-5.90); RDW 18.6 % (11.5-15.5); WBC 7.2 k/uL (3.8-10.6); WBC (Perox) 7.36
[2016-12-13 07:32] LABS: Anion Gap 7 mmol/L; Blood Urea Nitrogen 9 mg/dL (9-20); Calcium 8.5 mg/dL (8.4-10.2); Carbon Dioxide 27 mmol/L (22-30); Chloride 103 mmol/L (98-107); Glucose 88 mg/dL (74-99); Non-African American GFR(MDRD) >60 (>60 ml/min/1.73 sqM); Potassium 4.4 mmol/L (3.5-5.1); Sodium 137 mmol/L (137-145)
[2016-12-13] MEDS: carBAMazepine 200 MG TAB PO SCH (08:44)
[2016-12-13] MEDS: ATENOLOL 50 MG TAB PO SCH (08:44)
[2016-12-13] MEDS: HEPARIN SODIUM,PORCINE 5,000 UNIT/ML 1 ML VIAL SQ SCH ×3 (08:44→23:56)
[2016-12-13] MEDS: ASPIRIN 81 MG PO SCH (08:44)
[2016-12-13] MEDS: ATORVASTATIN 40 MG TAB PO SCH (08:45)
[2016-12-13] MEDS: ALBUTEROL NEBULIZED 2.5 MG/3 ML INHALATION SCH ×2 (08:58→20:59)
--- NOTE | 2016-12-13 09:36 | P.PN ---
Subjective Principal diagnosis: Right internal carotid artery stenosis. Current tobacco abuse. History of COPD , DVT, GI bleed, hypertension, osteoarthritis, pneumonia, pulmonary embolus, seizure disorder, alcoholic hepatitis, bowel resection with colostomy. POD #3 right internal carotid endarterectomy and Dacron patch angioplasty. Postoperative stroke, right-sided acute/subacute infarcts with apparent middle cerebral artery distribution per MRI, possible complications post carotid endarterectomy surgery. Patient's currently sitting up in bed in no acute distress. Denies pain. Patient still has weakness on the left side but it is improving. Objective - Vital Signs Vital signs: Vital Signs Temp 98.5 F 12/13/16 08:00 Pulse 80 12/13/16 09:07 Resp 20 12/13/16 08:00 BP 143/73 12/13/16 08:00 Pulse Ox 97 12/13/16 08:59 Intake & Output 12/12/16 12/13/16 12/13/16 18:59 06:59 18:59 Intake Total 240 120 100 Output Total 650 150 Balance -410 -30 100 Weight 62.1 kg Intake: Oral 240 120 100 Output: Urine 650 150 Other: Voiding Method Indwelling Catheter ABP, PAP, CO, CI - Last Documented Arterial Blood Pressure 118/77 - Constitutional General appearance: Present: cooperative, no acute distress - Respiratory Details: Lungs sounds diminished bilaterally. Respirations even, nonlabored. Currently on 2 L nasal cannula with oxygen saturation 98%. - Cardiovascular Details: S1, S2 present. Regular rate and rhythm, normal sinus rhythm on telemetry. Palpable pulses bilaterally. No edema present. - Gastrointestinal Gastrointestinal Comment(s): Abdomen soft, nontender, nondistended. Active bowel sounds 4 quadrants. Tolerating diet. - Genitourinary Genitourinary Comment(s): Continues to void clear, yellow urine. - Integumentary Integumentary Comment(s): Right neck incision well approximated with Steri-Strips. No drainage present. - Neurologic Neurologic Comment(s): Left-sided weakness has improved, patient is able to squeeze with his left hand , keep his left arm elevated in the air, able to keep his left leg elevated and has increased strength. - Musculoskeletal Musculoskeletal: Present: left sided weakness - Psychiatric Psychiatric: Present: A&O x's 3, appropriate affect, intact judgment & insight - Allied health notes Allied health notes reviewed: PT Allied Health Notes Comment(s): PT/OT recommendations are for inpatient rehab. - Labs CBC & Chem 7: 12/13/16 06:55 12/13/16 06:55 Labs: Abnormal Lab Results - Last 24 Hours (Table) 12/13/16 12/13/16 Range/Units 06:55 06:55 RBC 3.34 L (4.30-5.90) m/uL Hgb 9.6 L (13.0-17.5) gm/dL Hct 31.9 L (39.0-53.0) % MCHC 30.2 L (31.0-37.0) g/dL RDW 18.6 H (11.5-15.5) % Creatinine 0.58 L (0.66-1.25) mg/dL Assessment and Plan (1) Carotid stenosis, right Status: Acute (2) Status post carotid endarterectomy Status: Acute (3) History of pulmonary embolism Status: Acute (4) Hypertension Status: Acute (5) COPD (chronic obstructive pulmonary disease) Status: Acute (6) Tobacco dependence Status: Acute (7) History of alcoholism Status: Acute (8) Acute right arterial ischemic stroke, MCA (middle cerebral artery) Status: Acute Plan: 1. Continue aspirin, statin. 2. Hold Coumadin for 5-7 days to allow endarterectomy site to heal. 3. PT, OT, speech therapy to follow with patient. Recommend inpatient rehab. 4. Risk factor modification, encourage smoking cessation, encourage ETOH cessation. 5. Dr. Villa consulted for inpatient rehab. Neurology recommendations received. 6. Medical comorbidities to be managed by primary care service. Transfer service to Dr. Noble per his request. 7. Patient may be transferred to rehab facility from our standpoint when bed available and insurance authorization is obtained. 8. Will continue to monitor while in the hospital. Time with Patient: Greater than 30
[2016-12-13] MEDS: NICOTINE 21MG/24HR PATCH TRANSDERM SCH (09:48)
[2016-12-13] MEDS: ACETAMINOPHEN TAB 325 MG TAB PO PRN (10:55)
[2016-12-13] MEDS: LATANOPROST 0.005% OPHTH DROPS 2.5 ML BTL BOTH EYES SCH (20:17)
[2016-12-14] MEDS: HYDROcodone/APAP 7.5-325MG 1 EACH TAB PO PRN (03:32)
[2016-12-14 07:11] LABS: Anion Gap 6 mmol/L; Anisocytosis Slight; Basophils % (A) 0 %; Blood Urea Nitrogen 9 mg/dL (9-20); CH 28.7; CHCM 30.4; Carbon Dioxide 29 mmol/L (22-30); Chloride 101 mmol/L (98-107); Eosinophils # (A) 0.2 k/uL (0-0.7); Eosinophils % (A) 3 %; Glucose 86 mg/dL (74-99); HCT 32.1 % (39.0-53.0); HDW 2.72; HGB 9.6 gm/dL (13.0-17.5); Hypochromasia Moderate; Luc # (Auto) 0.16; Luc % (Auto) 3; Lymphocytes % (A) 17 %; MCH 28.4 pg (25.0-35.0); MCV 94.7 fL (80.0-100.0); Macrocytosis Slight; Mean Platelet Volume 7.6; Monocytes # (A) 0.6 k/uL (0-1.0); Monocytes % (A) 9 %; Neutrophils # (A) 4.3 k/uL (1.3-7.7); Neutrophils % (A) 68 %; Non-African American GFR(MDRD) >60 (>60 ml/min/1.73 sqM); Potassium 4.5 mmol/L (3.5-5.1); RBC 3.39 m/uL (4.30-5.90); RDW 19.3 % (11.5-15.5); Sodium 136 mmol/L (137-145); WBC 6.2 k/uL (3.8-10.6)
[2016-12-14] MEDS: ACETAMINOPHEN TAB 325 MG TAB PO PRN ×2 (08:09→23:42)
[2016-12-14] MEDS: HEPARIN SODIUM,PORCINE 5,000 UNIT/ML 1 ML VIAL SQ SCH ×3 (08:10→23:40)
[2016-12-14] MEDS: ATENOLOL 50 MG TAB PO SCH (08:10)
[2016-12-14] MEDS: ASPIRIN 81 MG PO SCH (08:10)
[2016-12-14] MEDS: NICOTINE 21MG/24HR PATCH TRANSDERM SCH (08:10)
[2016-12-14] MEDS: ATORVASTATIN 40 MG TAB PO SCH (08:11)
[2016-12-14] MEDS: carBAMazepine 200 MG TAB PO SCH (08:11)
[2016-12-14] MEDS: FAMOTIDINE 20 MG TAB PO SCH ×2 (08:13→21:04)
[2016-12-14] MEDS: ALBUTEROL NEBULIZED 2.5 MG/3 ML INHALATION SCH ×2 (08:47→20:19)
[2016-12-14] MEDS: HYDROcodone/APAP 10-325MG 1 EACH TAB PO PRN ×3 (09:52→21:05)
--- NOTE | 2016-12-14 10:36 | PN ---
PROGRESS NOTE SUBJECTIVE: A 55-year-old white male, admitted for stroke, status post right carotid endarterectomy. He has got left hemiparesis but is slowly improving his function in his left arm and left leg. Await Dr. Villa to take him to the rehab center. His pain is not being controlled on current pain medications, which I will increase. He is on [place] 7.5 every 6 hours, possibly switch to every 4 hours. Cardiovascular S1, S2. Lungs transmitted upper airway sounds. Musculoskeletal 3/5 strength in his left arm and left leg. ASSESSMENT: 1. Cerebrovascular accident and left hemiparesis. 2. Chronic lumbar disk disease. 3. History of atrial fibrillation. 4. History of hypertension and dyslipidemia, controlled on current medications. PLAN: Nicotine patch has been given. He his history of blood clots also. He is on Coumadin, which is on hold at this time. He is on heparin subcu. Monitor hemoglobin. Possible rehab with Dr. Villa. Increased his pain medication. MMODL / IJN: [id number] /
[2016-12-14] MEDS: LATANOPROST 0.005% OPHTH DROPS 2.5 ML BTL BOTH EYES SCH (21:04)
[2016-12-15] MEDS: HYDROcodone/APAP 10-325MG 1 EACH TAB PO PRN ×2 (03:54→08:58)
--- NOTE | 2016-12-15 07:02 | P.PN ---
Subjective This patient is a 55-year-old right-handed white male who was admitted to hospital for elective right carotid endarterectomy surgery. The patient is postoperative day 2 today and was transferred out of the ICU to the [facility] floor yesterday. He continues to rest comfortably. He does have left-sided hemiparesis from his recent stroke. He underwent MRI of the brain yesterday the results of which were noted. He has evidence of multiple strokes involving the right hemisphere. This is felt to be likely secondary from his right internal carotid endarterectomy procedure. Patient is postoperative day 4 today following right carotid endarterectomy. He is complaining of some pain and tenderness over the surgical incision site. We recommend that he mentioned this to the surgeons. The patient states he has been doing fairly well today. He was transferred out of the ICU. He continues to have some degree of headache pain. We would recommend physical therapy to keep assessing the patient and to consider for inpatient rehab for him as well. Patient is to continue with all inpatient PTOT evaluations. He is being considered for transfer to the inpatient rehab unit at [facility] on Thursday for ongoing stroke rehabilitation. His overall prognosis at this time remains guarded. Objective - Vital Signs Vital signs: Vital Signs Temp 98.8 F 12/14/16 16:00 Pulse 78 12/14/16 16:00 Resp 18 12/14/16 16:00 BP 131/76 12/14/16 16:00 Pulse Ox 97 12/14/16 16:00 Intake & Output 12/14/16 12/14/16 12/15/16 06:59 18:59 06:59 Intake Total 580 Output Total 150 Balance -150 580 Weight 61.8 kg Intake: Oral 580 Output: Urine 150 Other: Voiding Method Urinal # Voids 3 # Bowel Movements 1 ABP, PAP, CO, CI - Last Documented Arterial Blood Pressure 118/77 - Exam Physical examination: PHYSICAL EXAMINATION: Patient is resting comfortably in bed. VITAL SIGNS: Blood pressure is [132/76]. Heart rate is [76]. Respiration is [18] . Temperature is [97.7]. HEENT: Head is atraumatic, neck is supple, there were no carotid bruits. CHEST: Lungs are clear to auscultation and percussion. CARDIAC: S1, S2 normal rate and rhythm. There is no murmur. ABDOMEN: Soft and nontender. Bowel sounds are present. EXTREMITIES: There is no pedal edema. Peripheral pulses are present. Neurological examination: Neurological examination is unchanged from yesterday. Patient has left-sided hemiparesis. - Labs CBC & Chem 7: 12/14/16 06:32 12/14/16 06:32 Labs: Abnormal Lab Results - Last 24 Hours (Table) 12/14/16 12/14/16 Range/Units 06:32 06:32 RBC 3.39 L (4.30-5.90) m/uL Hgb 9.6 L (13.0-17.5) gm/dL Hct 32.1 L (39.0-53.0) % MCHC 30.0 L (31.0-37.0) g/dL RDW 19.3 H (11.5-15.5) % Sodium 136 L (137-145) mmol/L Creatinine 0.62 L (0.66-1.25) mg/dL Assessment and Plan (1) Acute right arterial ischemic stroke, MCA (middle cerebral artery) Status: Acute Code(s): I63.511 - CEREB INFRC D/T UNSP OCCLS OR STENOS OF RIGHT MID CEREB ART (2) Headache Status: Acute Code(s): R51 - HEADACHE (3) DVT (deep venous thrombosis) Status: Acute Code(s): I82.409 - ACUTE EMBOLISM AND THOMBOS UNSP DEEP VN UNSP LOWER EXTREMITY (4) Pulmonary embolism Status: Acute Code(s): I26.99 - OTHER PULMONARY EMBOLISM WITHOUT ACUTE COR PULMONALE Plan: This patient is a 55-year-old male who underwent a elective right carotid endarterectomy procedure yesterday by Dr. Jamil Pollard. The patient apparently did well postoperatively. He was then transferred to the intensive care unit for close monitoring. This morning the patient was seen on rounds by Dr. Munoz. He was noted to demonstrate some evidence of left sided arm weakness. He was sent for a computed tomography scan of the brain this morning from the ICU which did come back suggesting an acute stroke involving the right posterior parietal vertex. MRI of the brain was recommended. Patient was able to complete MRI of the brain this afternoon. MRI films were reviewed. The MRI report indicates multiple areas of acute stroke involving the right cerebral hemisphere which was felt to be acute or subacute consistent with embolic infarcts. There was also an area involving the left posterior frontal lobe as well. We did review the results of the MRI today with the patient in detail. He was seen by Dr. Villa today for possible inpatient rehab. Patient states most likely he will be able to go to [facility] for inpatient rehab on Thursday. His major neurological deficit at this time is left-sided hemiparesis. He would benefit from aggressive inpatient rehab for further poststroke recovery period we will continue close neurological follow-up for this patient in the intensive care unit. He is postoperative day #4 today following his right carotid endarterectomy. He is describing some pain and discomfort over the incision site and should bring this up with his surgeon. His overall prognosis at this time remains very guarded.
[2016-12-15 08:50] VITALS: RESP 18; TEMP 98.5
[2016-12-15] MEDS: ALBUTEROL NEBULIZED 2.5 MG/3 ML INHALATION SCH (08:52)
--- NOTE | 2016-12-15 08:53 | P.PN ---
Subjective Principal diagnosis: Right internal carotid artery stenosis. Current tobacco abuse. History of COPD , DVT, GI bleed, hypertension, osteoarthritis, pneumonia, pulmonary embolus, seizure disorder, alcoholic hepatitis, bowel resection with colostomy. POD #5 right internal carotid endarterectomy and Dacron patch angioplasty. Postoperative stroke, right-sided acute/subacute infarcts with apparent middle cerebral artery distribution per MRI, possible complications post carotid endarterectomy surgery. Patient's currently sitting up in bed in no acute distress. Denies pain. Patient still has weakness on the left side but it is improving. States he was up ambulating in the hallway yesterday with a walker. Objective - Vital Signs Vital signs: Vital Signs Temp 97.6 F 12/14/16 20:00 Pulse 56 L 12/15/16 04:00 Resp 16 12/15/16 04:00 BP 153/92 12/15/16 04:00 Pulse Ox 95 12/15/16 04:00 Intake & Output 12/14/16 12/15/16 12/15/16 18:59 06:59 18:59 Intake Total 580 120 Output Total 150 Balance 580 -150 120 Weight 68.1 kg Intake: Oral 580 120 Output: Urine 150 Other: Voiding Method Urinal Urinal # Voids 3 1 # Bowel Movements 1 ABP, PAP, CO, CI - Last Documented Arterial Blood Pressure 118/77 - Constitutional General appearance: Present: cooperative, no acute distress - Respiratory Details: Lungs sounds diminished bilaterally. Respirations even, nonlabored. Currently on 3 L nasal cannula with oxygen saturation 95%. Able to achieve 750 mL on his incentive spirometer. - Cardiovascular Details: S1, S2 present. Regular rate and rhythm, normal sinus rhythm on telemetry. Palpable pulses bilaterally. No edema present. - Gastrointestinal Gastrointestinal Comment(s): Abdomen soft, nontender, nondistended. Active bowel sounds 4 quadrants. Tolerating diet. - Genitourinary Genitourinary Comment(s): Continues to void clear, yellow urine. - Integumentary Integumentary Comment(s): Rihjt neck incision well approximated with dry intact Steri-Strips. - Neurologic Neurologic Comment(s): No facial asymmetry present. Right side 5 out of 5 strength. Left side 4 out of 5 strength. - Musculoskeletal Musculoskeletal Comment(s): Full active range of motion present bilaterally. Musculoskeletal: Present: left sided weakness - Psychiatric Psychiatric Comment(s): Flat affect present. Psychiatric: Present: A&O x's 3 - Allied health notes Allied health notes reviewed: nursing - Labs CBC & Chem 7: 12/14/16 06:32 12/14/16 06:32 Assessment and Plan (1) Carotid stenosis, right Status: Acute (2) Status post carotid endarterectomy Status: Acute (3) History of pulmonary embolism Status: Acute (4) Hypertension Status: Acute (5) COPD (chronic obstructive pulmonary disease) Status: Acute (6) Tobacco dependence Status: Acute (7) History of alcoholism Status: Acute (8) Acute right arterial ischemic stroke, MCA (middle cerebral artery) Status: Acute Plan: 1. Continue aspirin, statin. 2. Hold Coumadin for 5-7 days to allow endarterectomy site to heal. May resume upon transfer to rehab. 3. PT, OT, speech therapy to follow with patient. Recommend inpatient rehab. 4. Risk factor modification, encourage smoking cessation, encourage ETOH cessation. 5. Dr. Villa consulted for inpatient rehab. Neurology recommendations received. 6. Medical comorbidities to be managed by primary care service. Transfer service to Dr. Noble per his request. 7. Patient may be transferred to rehab facility from our standpoint when bed available and insurance authorization is obtained. 8. Will continue to monitor while in the hospital. Time with Patient: Greater than 30
[2016-12-15] MEDS: FAMOTIDINE 20 MG TAB PO SCH (08:57)
[2016-12-15] MEDS: NICOTINE 21MG/24HR PATCH TRANSDERM SCH (08:57)
[2016-12-15] MEDS: ASPIRIN 81 MG PO SCH (08:57)
[2016-12-15] MEDS: carBAMazepine 200 MG TAB PO SCH (08:57)
[2016-12-15] MEDS: ATENOLOL 50 MG TAB PO SCH (08:57)
[2016-12-15] MEDS: ATORVASTATIN 40 MG TAB PO SCH (08:57)
[2016-12-15] MEDS: HEPARIN SODIUM,PORCINE 5,000 UNIT/ML 1 ML VIAL SQ SCH (08:58)
[2016-12-15 12:19] VITALS: BP 151/88; PULSE 80
--- NOTE | 2016-12-15 13:03 | P.DS ---
Providers Date of admission: 12/10/16 09:22 Attending physician: Jamil Pollard Consults: 12/10/16 14:21 Consult Physician Routine Consulting Provider: Dion Munoz Consult Reason/Comments: vascular managment Do you want consulting provider notified?: Already Contacted Consult Physician Routine Consulting Provider: Octaviano Noble Consult Reason/Comments: medical management Do you want consulting provider notified?: Yes 12/11/16 09:46 Consult Physician Routine Consulting Provider: Mikel Villa Consult Reason/Comments: inpatient rehab Do you want consulting provider notified?: Yes 12/11/16 09:58 Consult Physician Routine Consulting Provider: Yuliya Lorenzana Consult Reason/Comments: stroke post carotid endarterectomy Do you want consulting provider notified?: Yes Primary care physician: Octaviano Noble - Discharge Diagnosis(es) (1) Carotid stenosis, right Current Visit: Yes Status: Acute (2) Status post carotid endarterectomy Current Visit: Yes Status: Acute (3) History of pulmonary embolism Current Visit: Yes Status: Acute (4) Hypertension Current Visit: Yes Status: Acute (5) COPD (chronic obstructive pulmonary disease) Current Visit: Yes Status: Acute (6) Tobacco dependence Current Visit: Yes Status: Acute (7) History of alcoholism Current Visit: Yes Status: Acute (8) Acute right arterial ischemic stroke, MCA (middle cerebral artery) Current Visit: Yes Status: Acute Hospital Course: FINAL DIAGNOSIS: 1. Right internal carotid artery stenosis 2. Postoperative right-sided acute stroke COMORBID CONDITIONS 1. Current tobacco abuse 2. History of COPD 3. History of DVT, pulmonary was on 4. History of GI bleed 5. History of hypertension 6. History of breast arthritis 7. History of pneumonia 8. Seizure disorder 9. History of alcoholic hepatitis 10. History of bowel resection with colostomy PRINCIPAL PROCEDURE: 1. Right internal carotid endarterectomy and Dacron patch angioplasty HISTORY OF PRESENT ILLNESS: This 55-year-old gentleman follows with Dr. Octaviano Noble. He had a history of long-standing high-grade right carotid artery stenosis. CT angiogram demonstrated greater than 80% blockage of the right internal carotid artery. He was referred to Dr. Pollard who recommended carotid endarterectomy. An extensive discussion was had with the patient, all risks and benefits were explained, and consent was obtained to proceed with surgery. HOSPITAL COURSE: [facility], taken to the preoperative area, prepared in the usual fashion and subsequently taken to the operating room Dr. Ordonez performed a right internal carotid artery endarterectomy with Dacron patch angioplasty. Upon completion of the surgery the patient was extubated and taken to the recovery room where he was monitored and recovered. He was admitted to the intensive care unit for neurological monitoring. On postoperative day 1 he was noted to have left- sided weakness. He was taken for a CT of the brain which revealed acute cortical infarct in the right posterior parietal vertex. Based on this CAT scan neurology was consulted who ordered an MRI of the brain which revealed evidence of multiple areas of abnormal signal in the right cerebral hemisphere consistent with acute or subacute embolic infarcts. In addition there was evidence of a smaller 5 mm infarct in the left posterior frontal lobe as well. There is no evidence of vasogenic edema, no midline shift, or any signs of herniation. The patient was started on a statin; physical, occupational, and speech therapy were ordered and followed the patient while hospitalized. Coumadin was to be held for 5-7 days to allow his right carotid endarterectomy site to heal. Dr. Villa was consulted for inpatient rehab. He continued to work with therapy, his vital signs remained stable, his incision was well approximated without any drainage, he was able to begin ambulating with a walker , and he was ready to be discharged to inpatient rehab on postop day #5. He received written and verbal instruction regarding his medications, activity restriction is, signs and symptoms requiring physician notification, and follow- up appointments. COMPLICATIONS: The patient expands postoperative right-sided acute stroke. Plan - Discharge Summary New Discharge Prescriptions: New Acetaminophen Tab [Tylenol] 650 mg PO Q4HR PRN tab PRN Reason: MILD Pain Aspirin 162 mg PO DAILY Atorvastatin [Lipitor] 40 mg PO DAILY tab Famotidine [Pepcid] 20 mg PO BID tab guaiFENesin [Mucinex] 600 mg PO Q12HR PRN tab PRN Reason: Cough Heparin Sodium,Porcine [Heparin Sodium] 5,000 unit SQ Q8HR vial HYDROcodone/APAP 10-325MG [Bradley 10-325] 1 each PO Q6H PRN tab PRN Reason: MODERATE TO SEVERE Pain Continue carBAMazepine [TEGretol] 200 mg PO QAM Latanoprost [Xalatan 0.005%] 1 drop BOTH EYES HS Nicotine 21Mg/24Hr Patch [Habitrol] 1 patch TRANSDERM DAILY #30 patch Albuterol Nebulized [Ventolin Nebulized] 2.5 mg INHALATION RT-BID Atenolol [Tenormin] 50 mg PO DAILY Warfarin [Coumadin] 7.5 mg PO DAILY Discontinued Aspirin 81 mg PO DAILY chew HYDROcodone/APAP 7.5-325MG [Bradley 7.5-325] 1 tab PO Q4H PRN PRN Reason: Moderate Pain Discharge Medication List carBAMazepine [TEGretol] 200 mg PO QAM 12/22/13 [History] Latanoprost [Xalatan 0.005%] 1 drop BOTH EYES HS 05/29/16 [History] Nicotine 21Mg/24Hr Patch [Habitrol] 1 patch TRANSDERM DAILY #30 patch 06/13/16 [ Rx] Albuterol Nebulized [Ventolin Nebulized] 2.5 mg INHALATION RT-BID 08/25/16 [ History] Atenolol [Tenormin] 50 mg PO DAILY 08/25/16 [History] Warfarin [Coumadin] 7.5 mg PO DAILY 08/25/16 [History] Acetaminophen Tab [Tylenol] 650 mg PO Q4HR PRN tab 12/15/16 [Rx] Aspirin 162 mg PO DAILY 12/15/16 [Rx] Atorvastatin [Lipitor] 40 mg PO DAILY tab 12/15/16 [Rx] Famotidine [Pepcid] 20 mg PO BID tab 12/15/16 [Rx] HYDROcodone/APAP 10-325MG [Bradley 10-325] 1 each PO Q6H PRN tab 12/15/16 [Rx] Heparin Sodium,Porcine [Heparin Sodium] 5,000 unit SQ Q8HR vial 12/15/16 [Rx] guaiFENesin [Mucinex] 600 mg PO Q12HR PRN tab 12/15/16 [Rx] Follow up Appointment(s)/Referral(s): Octaviano Noble MD [Primary Care Provider] - 1 Week Dion Munoz DO [Doctor of Osteopathic Medicine] - 12/30/16 8:15 am Ambulatory/Diagnostic Orders: Prothrombin Time INR [LAB.AMB] Location: Determined By Patient Activity/Diet/Wound Care/Special Instructions: DISCHARGE INSTRUCTIONS: 1. No driving until physician gives their ok. 2. The patient should sleep in their own bed, no medical bed needed. 3. No lifting, pushing, or pulling more than 10 pounds for 2 weeks. The physician will advise of any restriction changes. 4. Continue pain control per as needed orders. 5. Continue with incentive spirometry until otherwise directed by the physician. 6. May shower daily using liquid antibacterial soap. 7. Routine incision care. No powders, lotions, ointments on incision. 8. Please call surgeon/ORTHO ASSISTANT for temp greater than 101 F or purulent drainage from incisions. 9. Do not remove Steri-Strips. You may cut the ends as they curl up. Discharge Disposition: DC/TRNS INTERMEDIATE CARE FAC
--- NOTE | 2017-03-08 22:33 | EEG ---
ELECTROENCEPHALOGRAM REPORT DATE OF EE12/12/2016 REFERRING PHYSICIAN: Dr. Pollard. INTERPRETING PHYSICIAN: Dr. Yuliya Lorenzana MD. ELECTROENCEPHALOGRAPHIC EXAMINATION REPORT: INDICATION FOR EXAMINATION: This patient is a 55-year-old male, who is postoperative right carotid endarterectomy. The patient now being evaluated for left-sided weakness. AGE: [age]. EEG FINDINGS: A routine 21 channel awake digital EEG recording was accomplished utilizing the 10-20 international system with bipolar and referential montages. The background activity in the most alert resting state consists of a low to medium amplitude, fairly well developed and well sustained 8-9 hertz activity over the posterior head regions. This posterior rhythm attenuates to eye opening. There is a small amount of low amplitude 18-20 Hz beta activity seen maximally over the anterior head regions. Muscle and movement artifact was observed on several occasions during the tracing. Hyperventilation was not performed. Photic stimulation at flash frequencies of 2-30 Hz produced a minimal occipital driving response. No epileptiform discharges were seen. IMPRESSION: This EEG is within normal limits for the patient's age. The EEG failed to reveal any focal, lateralized, or epileptiform abnormalities. Clinical correlation is recommended. MMODL / IJN: [id number] /
== END 2016-12-15 14:05 | DRG 37 ==
LOC: 2ORMAIN 09:22 → 6ICU 13:13 → 6SEL 12-12 13:21
PROVIDERS: ADMIT Thoracic Surgery (Cardiothoracic Vascular Surgery); ATTEND Thoracic Surgery (Cardiothoracic Vascular Surgery)
PROC: 03UK0JZ Supplement Right Internal Carotid Artery with Synthetic Substitute, Open Approach (ICD-10-PCS; 2016-12-10)
PROC: 03CK0Z6 (ICD-10-PCS; principal; 2016-12-10 11:05)
DX: I65.21 Occlusion and stenosis of right carotid artery (principal); I63.411 Cerebral infarction due to embolism of right middle cerebral artery; J96.90 Respiratory failure, unspecified, unspecified whether with hypoxia or hypercapnia; G81.94 Hemiplegia, unspecified affecting left nondominant side; R47.01 Aphasia; I10 Essential (primary) hypertension; I48.91 Unspecified atrial fibrillation; I97.821 Postprocedural cerebrovascular infarction following other surgery; J44.1 Chronic obstructive pulmonary disease with (acute) exacerbation; G43.909 Migraine, unspecified, not intractable, without status migrainosus; G89.29 Other chronic pain; M19.91 Primary osteoarthritis, unspecified site; R29.708 NIHSS score 8; F17.210 Nicotine dependence, cigarettes, uncomplicated; H93.13 Tinnitus, bilateral; M51.9 Unspecified thoracic, thoracolumbar and lumbosacral intervertebral disc disorder; E78.5 Hyperlipidemia, unspecified; H40.9 Unspecified glaucoma; G40.909 Epilepsy, unspecified, not intractable, without status epilepticus; F10.20 Alcohol dependence, uncomplicated; Z79.82 Long term (current) use of aspirin; Z79.01 Long term (current) use of anticoagulants; Z79.899 Other long term (current) drug therapy; Z87.01 Personal history of pneumonia (recurrent); Z93.3 Colostomy status; Z86.711 Personal history of pulmonary embolism; Z86.718 Personal history of other venous thrombosis and embolism; Z88.0 Allergy status to penicillin; Z88.8 Allergy status to other drugs, medicaments and biological substances; Y83.2 Surgical operation with anastomosis, bypass or graft as the cause of abnormal reaction of the patient, or of later complication, without mention of misadventure at the time of the procedure; Y92.230 Patient room in hospital as the place of occurrence of the external cause
CPT/HCPCS: 36415; 36620; 70450; 70551; 74230; 80048; 80053; 80061; 85025; 85610; 85730; 86850; 86900; 86901; 88304; 88311; 93306; 94640; 94760; 95819

== ENCOUNTER 2017-01-19 17:16 | Inpatient (IN) | payer MEDICARE ==
[2017-01-19] MEDS ORDERED: MAGNESIUM SULFATE-D5W PMX 1 GM in DEXTROSE/WATER 1 100ML.BAG IVPB STA (17:25)
[2017-01-19] MEDS ORDERED: methylPREDNISolone SOD SUCCI 125 MG/2 ML VIAL IV STA (17:25)
[2017-01-19] MEDS ORDERED: IPRATROPIUM-ALBUTEROL 3 ML NEB INHALATION STA (17:25)
[2017-01-19] MEDS ORDERED: SODIUM CHLORIDE 0.9% 1,000 ML IV STA (17:25)
--- NOTE | 2017-01-19 17:28 | ED ---
SOB HPI - General Stated Complaint: Diff Breathing Time Seen by Provider: 01/19/17 17:16 Source: patient, RN notes reviewed - History of Present Illness Initial Comments: This is a 56-year-old male with a history of COPD who is still a smoker who states he had the onset earlier today shortness of breath he's had a cough with clear phlegm he denies any chills or sweats he has had a fever denies any abdominal pain or chest pain. He called EMS he was given updraft in route which did help somewhat. MD Complaint: shortness of breath, cough - Related Data Home Medications Medication Instructions Recorded Confirmed carBAMazepine [TEGretol] 200 mg PO BID 12/22/13 01/19/17 Latanoprost [Xalatan 0.005%] 1 drop BOTH EYES HS 05/29/16 01/19/17 ARIPiprazole [Abilify] 5 mg PO DAILY 01/19/17 01/19/17 FLUoxetine HCL [PROzac] 20 mg PO DAILY 01/19/17 01/19/17 HYDROcodone/APAP 10-325MG [[place] 1 tab PO QID PRN 01/19/17 01/19/17 10-325] Metoprolol Tartrate [Lopressor] 50 mg PO BID 01/19/17 01/19/17 Warfarin [Coumadin] 3 mg PO DAILY 01/19/17 01/19/17 Allergies Allergy/AdvReac Type Severity Reaction Status Date / Time varenicline tartrate Allergy Intermediate Rash/Hives Verified 01/19/17 18:38 [From Chantix] ampicillin Allergy Rash/Hives Verified 01/19/17 18:38 Review of Systems ROS Statement: Those systems with pertinent positive or pertinent negative responses have been documented in the HPI. ROS Other: All systems not noted in ROS Statement are negative. Past Medical History Past Medical History: COPD, Deep Vein Thrombosis (DVT), Eye Disorder, GI Bleed, Hypertension, Osteoarthritis (OA), Pneumonia, Pulmonary Embolus (PE), Respiratory Disorder, Seizure Disorder Additional Past Medical History / Comment(s): Respiratory failure with O2 at 2l , tracheobronchitis, pleurisy, bollous lung disease, bilateral pulmonary embolus , last SEIZURE 2015, PERFORATED ULCER 2005 , R leg DVT, CHRONIC BACK PAIN, DDD/ DJD, TIA, MIGRAINES, bilateral TINNITUS, WAS TOLD 20 YEARS AGO HE HAD ALCOHOLIC HEPATITIS, bilateral GLAUCOMA, History of Any Multi-Drug Resistant Organisms: None Reported Past Surgical History: Bowel Resection, Hernia Repair, Orthopedic Surgery Additional Past Surgical History / Comment(s): ulcer repair, EGD/COLONOSCOPY,, JOSIAH KNEE ARTHROSCOPY, abdominal hernia repair. 05/2016 bowel resection with colostomy Past Anesthesia/Blood Transfusion Reactions: Motion Sickness Additional Past Alcohol Use History / Comment(s): Pt states he started smoking as a teen and smoking 6-7 cigarettes daily. He states he has hx of alcoholism - last 9 weeks ago - Past Family History Sister(s) Family Medical History: Cancer Additional Family Medical History / Comment(s): SKIN CANCER Mother Family Medical History: Cancer Additional Family Medical History / Comment(s): BREAST Father Additional Family Medical History / Comment(s): YELLOW JAUNDICE, MALARIA FROM WW2, EMPHYSEMA Brother(s) Family Medical History: Cancer Additional Family Medical History / Comment(s): SKIN General Exam - General Exam Comments Initial Comments: This a well-developed well-nourished awake alert oriented times 3 male General appearance: alert, anxious, in distress Head exam: Present: atraumatic, normocephalic, normal inspection Eye exam: Present: normal appearance, PERRL, EOMI. Absent: scleral icterus, conjunctival injection, periorbital swelling ENT exam: Present: normal exam, mucous membranes moist Neck exam: Present: normal inspection. Absent: tenderness, meningismus, lymphadenopathy Respiratory exam: Present: wheezes, accessory muscle use, decreased breath sounds. Absent: respiratory distress, rales, rhonchi, stridor Cardiovascular Exam: Present: regular rate, normal rhythm, normal heart sounds. Absent: systolic murmur, diastolic murmur, rubs, gallop, clicks GI/Abdominal exam: Present: soft, normal bowel sounds. Absent: distended, tenderness, guarding, rebound, rigid Extremities exam: Present: normal inspection, full ROM, normal capillary refill. Absent: tenderness, pedal edema, joint swelling, calf tenderness Back exam: Present: normal inspection Neurological exam: Present: alert, oriented X3, CN II-XII intact Psychiatric exam: Present: normal affect, normal mood Skin exam: Present: warm, dry, intact, normal color. Absent: rash Course Vital Signs 01/19/17 01/19/17 01/19/17 17:22 17:39 18:01 Temperature 98.1 F Pulse Rate 106 H 96 Respiratory 24 24 Rate Blood Pressure 159/80 O2 Sat by Pulse 92 L Oximetry 01/19/17 01/19/17 18:13 18:49 Temperature Pulse Rate 94 112 H Respiratory 22 Rate Blood Pressure 156/96 O2 Sat by Pulse 93 L Oximetry - Reevaluation(s) Reevaluation #1: 01/19/17 19:35 Reevaluation the patient after initial therapy reveals minimal improvement in his wheezing and aeration. Medical Decision Making - Medical Decision Making The patient remains dyspneic with diffuse wheezing and decreased aeration. He will be admitted for inpatient treatment I did discuss the case with his physician Dr. Noble. Dr. Fajardo will be consulted. - Lab Data Result diagrams: 01/19/17 17:52 01/19/17 17:52 Lab Results 01/19/17 01/19/17 01/19/17 Range/Units 17:52 17:52 17:52 WBC 7.2 (3.8-10.6) k/uL RBC 4.49 (4.30-5.90) m/uL Hgb 11.7 L (13.0-17.5) gm/dL Hct 38.5 L (39.0-53.0) % MCV 85.7 D (80.0-100.0) fL MCH 25.9 (25.0-35.0) pg MCHC 30.3 L (31.0-37.0) g/dL RDW 18.7 H (11.5-15.5) % Plt Count 365 (150-450) k/uL Neutrophils % 62 % Lymphocytes % 22 % Monocytes % 9 % Eosinophils % 3 % Basophils % 0 % Neutrophils # 4.5 (1.3-7.7) k/uL Lymphocytes # 1.6 (1.0-4.8) k/uL Monocytes # 0.6 (0-1.0) k/uL Eosinophils # 0.2 (0-0.7) k/uL Basophils # 0.0 (0-0.2) k/uL Hypochromasia Marked Anisocytosis Slight PT (9.0-12.0) sec INR (<1.2) APTT (22.0-30.0) sec Sodium 137 (137-145) mmol/L Potassium 4.7 (3.5-5.1) mmol/L Chloride 96 L (98-107) mmol/L Carbon Dioxide 28 (22-30) mmol/L Anion Gap 13 mmol/L BUN 13 (9-20) mg/dL Creatinine 0.75 (0.66-1.25) mg/dL Est GFR (MDRD) Af Amer >60 (>60 ml/min/1.73 sqM) Est GFR (MDRD) Non-Af >60 (>60 ml/min/1.73 sqM) Glucose 103 H (74-99) mg/dL Calcium 9.3 (8.4-10.2) mg/dL Magnesium 1.7 (1.6-2.3) mg/dL Total Bilirubin 0.3 (0.2-1.3) mg/dL AST 36 (17-59) U/L ALT 29 (21-72) U/L Alkaline Phosphatase 94 (38-126) U/L Total Creatine Kinase 86 (55-170) U/L CK-MB (CK-2) 3.0 H* (0.0-2.4) ng/mL CK-MB (CK-2) Rel Index 3.5 Troponin I <0.012 (0.000-0.034) ng/mL NT-Pro-B Natriuret Pep pg/mL Total Protein 7.5 (6.3-8.2) g/dL Albumin 4.5 (3.5-5.0) g/dL 01/19/17 01/19/17 Range/Units 17:52 17:52 WBC (3.8-10.6) k/uL RBC (4.30-5.90) m/uL Hgb (13.0-17.5) gm/dL Hct (39.0-53.0) % MCV (80.0-100.0) fL MCH (25.0-35.0) pg MCHC (31.0-37.0) g/dL RDW (11.5-15.5) % Plt Count (150-450) k/uL Neutrophils % % Lymphocytes % % Monocytes % % Eosinophils % % Basophils % % Neutrophils # (1.3-7.7) k/uL Lymphocytes # (1.0-4.8) k/uL Monocytes # (0-1.0) k/uL Eosinophils # (0-0.7) k/uL Basophils # (0-0.2) k/uL Hypochromasia Anisocytosis PT 10.2 (9.0-12.0) sec INR 1.0 (<1.2) APTT 27.5 (22.0-30.0) sec Sodium (137-145) mmol/L Potassium (3.5-5.1) mmol/L Chloride (98-107) mmol/L Carbon Dioxide (22-30) mmol/L Anion Gap mmol/L BUN (9-20) mg/dL Creatinine (0.66-1.25) mg/dL Est GFR (MDRD) Af Amer (>60 ml/min/1.73 sqM) Est GFR (MDRD) Non-Af (>60 ml/min/1.73 sqM) Glucose (74-99) mg/dL Calcium (8.4-10.2) mg/dL Magnesium (1.6-2.3) mg/dL Total Bilirubin (0.2-1.3) mg/dL AST (17-59) U/L ALT (21-72) U/L Alkaline Phosphatase (38-126) U/L Total Creatine Kinase (55-170) U/L CK-MB (CK-2) (0.0-2.4) ng/mL CK-MB (CK-2) Rel Index Troponin I (0.000-0.034) ng/mL NT-Pro-B Natriuret Pep 89 pg/mL Total Protein (6.3-8.2) g/dL Albumin (3.5-5.0) g/dL - EKG Data -: EKG Interpreted by Sd EKG shows normal: sinus rhythm ([place] [address] QRS 70 QT since QTC of 346/444 this appears be a normal EKG some artifact is present.) - Radiology Data Radiology results: report reviewed (I did review the imaging and reports are is evidence of left lower lobe atelectasis and COPD no definite infiltrate), image reviewed Critical Care Time Critical Care Time: Yes Critical Care Time: 31 minutes of critical care time which includes initial presentation with history physical labs x-rays, reevaluation of the patient on several occasions for responsive therapy. Discussion with the admitting physician initial orders and documentation of the above. Disposition Clinical Impression: Acute exacerbation of chronic obstructive airways disease, Adult respiratory distress syndrome Disposition: ADMITTED IP TO THIS HOSP Condition: Stable Referrals: Octaviano Noble MD [Primary Care Provider] - 1-2 days
[2017-01-19 18:09] LABS: Anisocytosis Slight; Basophils % (A) 0 %; CH 25.5; CHCM 29.8; Eosinophils # (A) 0.2 k/uL (0-0.7); Eosinophils % (A) 3 %; HCT 38.5 % (39.0-53.0); HDW 2.89; HGB 11.7 gm/dL (13.0-17.5); Hypochromasia Marked; Luc # (Auto) 0.25; Luc % (Auto) 3; Lymphocytes # (A) 1.6 k/uL (1.0-4.8); Lymphocytes % (A) 22 %; MCH 25.9 pg (25.0-35.0); MCHC 30.3 g/dL (31.0-37.0); Monocytes # (A) 0.6 k/uL (0-1.0); Monocytes % (A) 9 %; Neutrophils # (A) 4.5 k/uL (1.3-7.7); Neutrophils % (A) 62 %; RBC 4.49 m/uL (4.30-5.90); RDW 18.7 % (11.5-15.5); WBC 7.2 k/uL (3.8-10.6); WBC (Perox) 7.26
[2017-01-19 18:11] LABS: MCV 85.7 fL (80.0-100.0)
[2017-01-19 18:17] LABS: Partial Thromboplastin Time 27.5 sec (22.0-30.0); Prothrombin Time 10.2 sec (9.0-12.0)
[2017-01-19 18:19] LABS: ALT 29 U/L (21-72); AST 36 U/L (17-59); Alkaline Phosphatase 94 U/L (38-126); Anion Gap 13 mmol/L; Blood Urea Nitrogen 13 mg/dL (9-20); Calcium 9.3 mg/dL (8.4-10.2); Carbon Dioxide 28 mmol/L (22-30); Chloride 96 mmol/L (98-107); Glucose 103 mg/dL (74-99); Magnesium 1.7 mg/dL (1.6-2.3); Non-African American GFR(MDRD) >60 (>60 ml/min/1.73 sqM); Potassium 4.7 mmol/L (3.5-5.1); Sodium 137 mmol/L (137-145); Total Bilirubin 0.3 mg/dL (0.2-1.3); Total Protein 7.5 g/dL (6.3-8.2)
[2017-01-19 18:23] LABS: Creatine Kinase 86 U/L (55-170)
[2017-01-19 18:37] LABS: Troponin I <0.012 ng/mL (0.000-0.034)
--- NOTE | 2017-01-19 18:40 | XR ---
EXAMINATION TYPE: XR chest 2V DATE OF EXAM: 01/19/2017 COMPARISON: 08/28/2016 HISTORY: Difficulty breathing TECHNIQUE: Frontal and lateral views of the chest are obtained. FINDINGS: There is pulmonary hyperinflation and flattening of the diaphragms on the lateral image reece ggesting underlying COPD. Linear atelectasis is seen within the left lung base. No pleural effusion o r pneumothorax is identified. Cardia mediastinal silhouette is within normal limits. IMPRESSION: Radiographic sequela of COPD and left basilar subsegmental atelectasis. No focal consoli dation.
[2017-01-19] MEDS: HYDROcodone/APAP 10-325MG 1 EACH TAB PO PRN (20:36)
[2017-01-19] MEDS: IPRATROPIUM-ALBUTEROL 3 ML NEB INHALATION SCH (20:58)
[2017-01-19] MEDS: WARFARIN 3 MG TAB PO SCH (21:56)
[2017-01-19] MEDS: LATANOPROST 0.005% OPHTH DROPS 2.5 ML BTL BOTH EYES SCH (21:57)
[2017-01-19] MEDS: METOPROLOL TARTRATE 50 MG TAB PO SCH (21:57)
[2017-01-19] MEDS: carBAMazepine 200 MG TAB PO SCH (21:57)
[2017-01-19] MEDS: SODIUM CHLORIDE 0.9% 1,000 ML IV SCH (23:58)
[2017-01-20] MEDS: methylPREDNISolone SOD SUCCI 125 MG/2 ML VIAL IV SCH ×5 (00:36→23:38)
[2017-01-20] MEDS: IPRATROPIUM-ALBUTEROL 3 ML NEB INHALATION SCH ×7 (00:46→23:03)
[2017-01-20] MEDS: SODIUM CHLORIDE 0.9% 1,000 ML IV SCH ×2 (06:20→15:45)
[2017-01-20] MEDS: ACETAMINOPHEN TAB 325 MG TAB PO PRN (06:34)
[2017-01-20] MEDS: METOPROLOL TARTRATE 50 MG TAB PO SCH ×2 (08:26→20:05)
[2017-01-20] MEDS: ARIPiprazole 5 MG TAB PO SCH (08:26)
[2017-01-20] MEDS: carBAMazepine 200 MG TAB PO SCH ×2 (08:27→20:06)
[2017-01-20] MEDS: FLUoxetine HCL 20 MG CAP PO SCH (08:27)
[2017-01-20] MEDS: HYDROcodone/APAP 10-325MG 1 EACH TAB PO PRN ×3 (08:31→21:25)
--- NOTE | 2017-01-20 09:47 | P.CNPUL ---
History of Present Illness Consult date: 01/20/17 Requesting physician: Octaviano Noble Reason for consult: COPD Chief complaint: shortness of breath History of present illness: This is a 56-year-old male patient well known to our services. He is being seen examined and evaluated today on the [facility] unit. This patient came into the emergency room with exacerbation of COPD. He states he had been becoming progressively more short of breath throughout the day and has no cough with white yellow sputum. Patient states he did have a subjective fever at home. He denies any chills or sweats at this time. He did have minimal positive response from updrafts given by EMS on the way to the emergency room. Upon examination the patient's resting up in bed on 3 L of supplemental oxygen. He does wear supplemental oxygen at night only at home at 2 L. He states he continues to get short of breath with exertion or activity as well as with extensive conversation. Patient states that his coughing is causing him generalized muscle aches across his thoracic region. Currently the patient is afebrile all labs and reports have been reviewed. His chest x-ray from yesterday shows a radiographic sequelae of COPD and left basilar subsegmental atelectasis no focal consolidation. Review of Systems 14 point review of systems was completed and is negative unless noted above in the HPI. Past Medical History Past Medical History: COPD, CVA/TIA, Deep Vein Thrombosis (DVT), Eye Disorder, GI Bleed, Hypertension, Osteoarthritis (OA), Pneumonia, Pulmonary Embolus (PE), Respiratory Disorder, Seizure Disorder Additional Past Medical History / Comment(s): Respiratory failure with O2 at 2l , tracheobronchitis, pleurisy, bollous lung disease, bilateral pulmonary embolus , last SEIZURE 2015, PERFORATED ULCER 2005 , R leg DVT, CHRONIC BACK PAIN, DDD/ DJD, TIA, MIGRAINES, bilateral TINNITUS, WAS TOLD 20 YEARS AGO HE HAD ALCOHOLIC HEPATITIS, bilateral GLAUCOMA, stroke 2017 History of Any Multi-Drug Resistant Organisms: None Reported Past Surgical History: Bowel Resection, Hernia Repair, Orthopedic Surgery Additional Past Surgical History / Comment(s): ulcer repair, EGD/COLONOSCOPY,, JOSIAH KNEE ARTHROSCOPY, abdominal hernia repair. 05/2016 bowel resection with colostomy Past Anesthesia/Blood Transfusion Reactions: Motion Sickness Past Psychological History: Depression Additional Psychological History / Comment(s): . Smoking Status: Current some day smoker Past Alcohol Use History: None Reported Additional Past Alcohol Use History / Comment(s): Pt states he started smoking as a teen and smoking 6-7 cigarettes daily but now is down to a few every other day. He states he has hx of alcoholism drinks one beer a day with dinner Past Drug Use History: None Reported - Past Family History Sister(s) Family Medical History: Cancer Additional Family Medical History / Comment(s): SKIN CANCER Mother Family Medical History: Cancer Additional Family Medical History / Comment(s): BREAST Father Additional Family Medical History / Comment(s): YELLOW JAUNDICE, MALARIA FROM WW2, EMPHYSEMA Brother(s) Family Medical History: Cancer Additional Family Medical History / Comment(s): SKIN Medications and Allergies Home Medications Medication Instructions Recorded Confirmed Type carBAMazepine [TEGretol] 200 mg PO BID 12/22/13 01/19/17 History Latanoprost [Xalatan 0.005%] 1 drop BOTH EYES HS 05/29/16 01/19/17 History ARIPiprazole [Abilify] 5 mg PO DAILY 01/19/17 01/19/17 History FLUoxetine HCL [PROzac] 20 mg PO DAILY 01/19/17 01/19/17 History HYDROcodone/APAP 10-325MG [[place] 1 tab PO QID PRN 01/19/17 01/19/17 History 10-325] Metoprolol Tartrate [Lopressor] 50 mg PO BID 01/19/17 01/19/17 History Warfarin [Coumadin] 3 mg PO DAILY 01/19/17 01/19/17 History Allergies Allergy/AdvReac Type Severity Reaction Status Date / Time varenicline tartrate Allergy Intermediate Rash/Hives Verified 01/19/17 18:38 [From Chantix] ampicillin Allergy Rash/Hives Verified 01/19/17 18:38 Physical Exam Vitals: Vital Signs Temp Pulse Pulse Resp BP BP Pulse Ox 01/20/17 08:10 90 01/20/17 08:01 89 98 01/20/17 07:00 97.6 F 78 18 149/85 99 01/19/17 23:00 97.1 F L 89 14 119/72 98 01/19/17 22:46 16 01/19/17 21:01 90 01/19/17 20:31 97.6 F 102 H 16 166/81 93 L 01/19/17 19:50 98.1 F 105 H 20 140/83 93 L 01/19/17 18:49 112 H 22 156/96 93 L 01/19/17 18:13 94 01/19/17 18:01 96 01/19/17 17:39 24 01/19/17 17:22 98.1 F 106 H 24 159/80 92 L Intake and Output 01/19/17 01/20/17 01/20/17 22:59 06:59 14:59 Intake Total 240 Output Total 350 Balance -350 240 Intake: Oral 240 Output: Urine 350 Other: Weight 68.039 kg GENERAL EXAM: Alert, comfortable in no apparent distress. HEAD: Normocephalic. EYES: Normal reaction of pupils, equal size. NOSE: Clear with pink turbinates. THROAT: No erythema or exudates. NECK: No masses, no JVD. CHEST: No chest wall deformity. LUNGS: Equal air entry noted with decreased breath sounds bilaterally as well as expiratory wheezes scattered throughout. CVS: S1 and S2 normal with no audible mumurs, regular rhythm. ABDOMEN: No hepatosplenomegaly, normal bowel sounds, no guarding or rigidity. EXTREMITIES: No edema noted, pedal pulses palpable. SKIN: No rashes CENTRAL NERVOUS SYSTEM: No focal deficits, tone is normal in all 4 extremities. Results - Laboratory Findings CBC and BMP: 01/19/17 17:52 01/19/17 17:52 PT/INR, D-dimer PT 10.2 sec (9.0-12.0) 01/19/17 17:52 INR 1.0 (<1.2) 01/19/17 17:52 Abnormal lab findings: Abnormal Labs 01/19/17 01/19/17 01/19/17 17:52 17:52 17:52 Hgb 11.7 L Hct 38.5 L MCHC 30.3 L RDW 18.7 H Chloride 96 L Glucose 103 H CK-MB (CK-2) 3.0 H* - Diagnostic Findings Chest x-ray: report reviewed, image reviewed Assessment and Plan Plan: Assessment Acute exacerbation of COPD Adult respiratory distress syndrome Acute on chronic hypoxic respiratory failure Acute tracheobronchitis History of bullous lung disease History of bilateral pulmonary emboli Hypertension Plan Medications have been reviewed and will be continued as ordered. We will obtain a flu swab as well as a sputum sample. Initiate and encourage incentive spirometer. Continue with pulmonary hygiene, coughing and deep breathing exercises, and supportive care. Supplemental oxygen to maintain oxygen saturations of 92% or better. Continue nebulizer treatments add budesonide. GI and DVT prophylaxis. We will continue to monitor labs/results and adjust treatment as necessary. Further recommendations pending. I performed an examination of the patient and discussed their management with the nurse practitioner. I have reviewed the nurse practitioner's note and agree with the documented findings and plan of care.
[2017-01-20] MEDS: PROMETHAZ-COD 6.25-10 MG/5 ML 5 ML CUP PO PRN (10:12)
[2017-01-20 12:17] LABS: Glucose,Whole Blood 178 mg/dL (75-99)
[2017-01-20] MEDS: INSULIN LISPRO (humaLOG) 300 UNIT/3 ML VIAL SQ SCH ×3 (12:37→20:09)
[2017-01-20 16:56] LABS: Glucose,Whole Blood 128 mg/dL (75-99)
[2017-01-20 17:29] LABS: Prothrombin Time 10.6 sec (9.0-12.0)
[2017-01-20] MEDS: WARFARIN 3 MG TAB PO SCH (17:50)
[2017-01-20] MEDS: LATANOPROST 0.005% OPHTH DROPS 2.5 ML BTL BOTH EYES SCH (20:06)
[2017-01-20 20:39] LABS: Glucose,Whole Blood 198 mg/dL (75-99)
[2017-01-20] MEDS: BUDESONIDE 0.5 MG/2 ML NEBU INHALATION SCH (21:04)
[2017-01-20] MEDS ORDERED: IPRATROPIUM-ALBUTEROL 3 ML NEB INHALATION PRN (23:04)
[2017-01-21] MEDS: SODIUM CHLORIDE 0.9% 1,000 ML IV SCH ×3 (01:57→22:39)
[2017-01-21] MEDS: HYDROcodone/APAP 10-325MG 1 EACH TAB PO PRN ×4 (03:33→23:40)
[2017-01-21] MEDS: methylPREDNISolone SOD SUCCI 125 MG/2 ML VIAL IV SCH ×4 (06:00→23:02)
[2017-01-21] MEDS: INSULIN LISPRO (humaLOG) 300 UNIT/3 ML VIAL SQ SCH ×4 (07:34→20:39)
[2017-01-21] MEDS: METOPROLOL TARTRATE 50 MG TAB PO SCH ×2 (07:35→20:29)
[2017-01-21] MEDS: FLUoxetine HCL 20 MG CAP PO SCH (07:36)
[2017-01-21] MEDS: ARIPiprazole 5 MG TAB PO SCH (07:36)
[2017-01-21] MEDS: carBAMazepine 200 MG TAB PO SCH ×2 (07:36→20:29)
[2017-01-21 08:00] LABS: Glucose,Whole Blood 116 mg/dL (75-99)
[2017-01-21] MEDS: BUDESONIDE 0.5 MG/2 ML NEBU INHALATION SCH ×2 (08:02→19:26)
[2017-01-21] MEDS: IPRATROPIUM-ALBUTEROL 3 ML NEB INHALATION SCH ×4 (08:02→19:25)
[2017-01-21] MEDS: PROMETHAZ-COD 6.25-10 MG/5 ML 5 ML CUP PO PRN ×3 (08:34→23:00)
[2017-01-21 08:50] LABS: ALT 30 U/L (21-72); AST 18 U/L (17-59); Alkaline Phosphatase 61 U/L (38-126); Anion Gap 9 mmol/L; Blood Urea Nitrogen 12 mg/dL (9-20); Calcium 9.1 mg/dL (8.4-10.2); Carbon Dioxide 26 mmol/L (22-30); Chloride 104 mmol/L (98-107); Glucose 124 mg/dL (74-99); Non-African American GFR(MDRD) >60 (>60 ml/min/1.73 sqM); Potassium 5.1 mmol/L (3.5-5.1); Sodium 139 mmol/L (137-145); Total Bilirubin 0.1 mg/dL (0.2-1.3); Total Protein 6.3 g/dL (6.3-8.2)
[2017-01-21 09:01] LABS: Anisocytosis Slight; Basophils % (A) 0 %; CH 25.9; CHCM 29.4; Eosinophils % (A) 0 %; HCT 38.7 % (39.0-53.0); HGB 11.3 gm/dL (13.0-17.5); Hypochromasia Marked; Luc # (Auto) 0.05; Luc % (Auto) 0; Lymphocytes # (A) 0.8 k/uL (1.0-4.8); Lymphocytes % (A) 5 %; MCH 25.8 pg (25.0-35.0); MCHC 29.3 g/dL (31.0-37.0); Mean Platelet Volume 7.3; Monocytes # (A) 0.3 k/uL (0-1.0); Monocytes % (A) 2 %; Neutrophils # (A) 13.8 k/uL (1.3-7.7); Neutrophils % (A) 92 %; RBC 4.39 m/uL (4.30-5.90); RDW 16.8 % (11.5-15.5); WBC 15.1 k/uL (3.8-10.6)
--- NOTE | 2017-01-21 10:51 | P.PN ---
Subjective Progress Note Date: 01/21/17 01/21/17- patient being seen examined and evaluated today on rounds. Upon examination the patient's resting up in bed on 3 L of supplemental oxygen via nasal cannula. He continues to complain of shortness of breath with exertion or activities EXTENSIVE conversations. Patient states that he continues to cough however it is slightly improving since the cough medicine. The patient is able to bring up some sputum and will be sending that down to the lab for pathology. Patient using incentive spirometer and pulling volumes about 750 ML' s. Patient has a good appetite. He is afebrile, no further complaints no overnight events. All labs and reports have been reviewed. 01/20/17- This is a 56-year-old male patient well known to our services. He is being seen examined and evaluated today on the [facility] unit. This patient came into the emergency room with exacerbation of COPD. He states he had been becoming progressively more short of breath throughout the day and has no cough with white yellow sputum. Patient states he did have a subjective fever at home. He denies any chills or sweats at this time. He did have minimal positive response from updrafts given by EMS on the way to the emergency room. Upon examination the patient's resting up in bed on 3 L of supplemental oxygen. He does wear supplemental oxygen at night only at home at 2 L. He states he continues to get short of breath with exertion or activity as well as with extensive conversation. Patient states that his coughing is causing him generalized muscle aches across his thoracic region. Currently the patient is afebrile all labs and reports have been reviewed. His chest x-ray from yesterday shows a radiographic sequelae of COPD and left basilar subsegmental atelectasis no focal consolidation. Objective - Vital Signs Vital signs: Vital Signs Temp 97.3 F L 01/21/17 07:00 Pulse 88 01/21/17 08:17 Resp 20 01/21/17 07:00 BP 143/86 01/21/17 07:00 Pulse Ox 95 01/21/17 08:04 Intake & Output 01/20/17 01/21/17 01/21/17 18:59 06:59 18:59 Intake Total 240 1100 240 Output Total 400 1500 150 Balance -160 -400 90 Weight 68.039 kg Intake: Oral 240 1100 240 Output: Urine 400 1500 150 Other: # Bowel Movements 1 1 - Exam GENERAL EXAM: Alert, comfortable in no apparent distress. HEAD: Normocephalic. EYES: Normal reaction of pupils, equal size. NOSE: Clear with pink turbinates. THROAT: No erythema or exudates. NECK: No masses, no JVD. CHEST: No chest wall deformity. LUNGS: Equal air entry noted with decreased breath sounds bilaterally as well as expiratory wheezes scattered throughout. CVS: S1 and S2 normal with no audible mumurs, regular rhythm. ABDOMEN: No hepatosplenomegaly, normal bowel sounds, no guarding or rigidity. EXTREMITIES: No edema noted, pedal pulses palpable. SKIN: No rashes CENTRAL NERVOUS SYSTEM: No focal deficits, tone is normal in all 4 extremities. - Labs CBC & Chem 7: 01/21/17 08:03 01/21/17 08:03 Labs: Abnormal Lab Results - Last 24 Hours (Table) 01/20/17 01/20/17 01/20/17 Range/Units 12:14 16:54 17:00 WBC (3.8-10.6) k/uL Hgb (13.0-17.5) gm/dL Hct (39.0-53.0) % MCHC (31.0-37.0) g/dL RDW (11.5-15.5) % Neutrophils # (1.3-7.7) k/uL Lymphocytes # (1.0-4.8) k/uL Creatinine (0.66-1.25) mg/dL Glucose (74-99) mg/dL POC Glucose (mg/dL) 178 H 128 H (75-99) mg/dL Hemoglobin A1c 6.1 H (4.0-6.0) % Total Bilirubin (0.2-1.3) mg/dL 01/20/17 01/21/17 01/21/17 Range/Units 20:06 07:15 08:03 WBC 15.1 H (3.8-10.6) k/uL Hgb 11.3 L (13.0-17.5) gm/dL Hct 38.7 L (39.0-53.0) % MCHC 29.3 L (31.0-37.0) g/dL RDW 16.8 H (11.5-15.5) % Neutrophils # 13.8 H (1.3-7.7) k/uL Lymphocytes # 0.8 L (1.0-4.8) k/uL Creatinine (0.66-1.25) mg/dL Glucose (74-99) mg/dL POC Glucose (mg/dL) 198 H 116 H (75-99) mg/dL Hemoglobin A1c (4.0-6.0) % Total Bilirubin (0.2-1.3) mg/dL 01/21/17 Range/Units 08:03 WBC (3.8-10.6) k/uL Hgb (13.0-17.5) gm/dL Hct (39.0-53.0) % MCHC (31.0-37.0) g/dL RDW (11.5-15.5) % Neutrophils # (1.3-7.7) k/uL Lymphocytes # (1.0-4.8) k/uL Creatinine 0.62 L (0.66-1.25) mg/dL Glucose 124 H (74-99) mg/dL POC Glucose (mg/dL) (75-99) mg/dL Hemoglobin A1c (4.0-6.0) % Total Bilirubin 0.1 L (0.2-1.3) mg/dL Microbiology - Last 24 Hours (Table) 01/19/17 17:52 Blood Culture - Preliminary Blood No Growth after 24 hours Assessment and Plan Plan: Assessment Acute exacerbation of COPD Adult respiratory distress syndrome Acute on chronic hypoxic respiratory failure Acute tracheobronchitis History of bullous lung disease History of bilateral pulmonary emboli Hypertension Plan Medications have been reviewed and will be continued as ordered. We will obtain a sputum sample. Initiate and encourage incentive spirometer. Continue with pulmonary hygiene, coughing and deep breathing exercises, and supportive care. Supplemental oxygen to maintain oxygen saturations of 92% or better. Continue nebulizer treatments add budesonide. GI and DVT prophylaxis. Patient should increase activity and ambulation as tolerated. We will continue to monitor labs/results and adjust treatment as necessary. Further recommendations pending. I performed an examination of the patient and discussed their management with the nurse practitioner. I have reviewed the nurse practitioner's note and agree with the documented findings and plan of care.
[2017-01-21 13:21] LABS: Glucose,Whole Blood 121 mg/dL (75-99)
[2017-01-21 17:09] LABS: Glucose,Whole Blood 126 mg/dL (75-99)
[2017-01-21] MEDS: WARFARIN 3 MG TAB PO SCH (17:10)
[2017-01-21] MEDS: LATANOPROST 0.005% OPHTH DROPS 2.5 ML BTL BOTH EYES SCH (20:29)
[2017-01-21 21:01] LABS: Glucose,Whole Blood 167 mg/dL (75-99)
[2017-01-22] MEDS: methylPREDNISolone SOD SUCCI 125 MG/2 ML VIAL IV SCH ×2 (05:34→12:46)
[2017-01-22] MEDS: ACETAMINOPHEN TAB 325 MG TAB PO PRN (06:50)
[2017-01-22] MEDS: INSULIN LISPRO (humaLOG) 300 UNIT/3 ML VIAL SQ SCH ×4 (07:28→21:51)
[2017-01-22] MEDS: carBAMazepine 200 MG TAB PO SCH ×2 (07:29→20:04)
[2017-01-22] MEDS: FLUoxetine HCL 20 MG CAP PO SCH (07:29)
[2017-01-22] MEDS: FAMOTIDINE 20 MG TAB PO SCH (07:30)
[2017-01-22] MEDS: PROMETHAZ-COD 6.25-10 MG/5 ML 5 ML CUP PO PRN ×3 (07:30→20:06)
[2017-01-22] MEDS: ARIPiprazole 5 MG TAB PO SCH (07:30)
[2017-01-22 07:59] LABS: Glucose,Whole Blood 110 mg/dL (75-99)
[2017-01-22] MEDS: METOPROLOL TARTRATE 50 MG TAB PO SCH ×2 (08:00→20:05)
[2017-01-22 08:17] LABS: INR 1.4 (<1.2); Prothrombin Time 13.3 sec (9.0-12.0)
[2017-01-22] MEDS: IPRATROPIUM-ALBUTEROL 3 ML NEB INHALATION SCH ×4 (08:25→20:32)
[2017-01-22] MEDS: BUDESONIDE 0.5 MG/2 ML NEBU INHALATION SCH ×2 (08:25→20:31)
[2017-01-22] MEDS: HYDROcodone/APAP 10-325MG 1 EACH TAB PO PRN ×3 (10:39→23:00)
[2017-01-22] MEDS: NICOTINE 21MG/24HR PATCH TRANSDERM SCH (11:17)
--- NOTE | 2017-01-22 11:51 | P.PN ---
Subjective Progress Note Date: 01/22/17 01/22/17- patient is being seen examined and evaluated today on rounds. Upon examination patient's resting up in bed on 3 L of supplemental oxygen via nasal cannula. He states his shortness of breath is slightly improving today. He still has it with exertion however it was severe. The cough continues to improve. Sputum has been sent and is pending. He continues using incentive spirometer. Ambulation and increase in activity has been encouraged. 01/21/17- patient being seen examined and evaluated today on rounds. Upon examination the patient's resting up in bed on 3 L of supplemental oxygen via nasal cannula. He continues to complain of shortness of breath with exertion or activities EXTENSIVE conversations. Patient states that he continues to cough however it is slightly improving since the cough medicine. The patient is able to bring up some sputum and will be sending that down to the lab for pathology. Patient using incentive spirometer and pulling volumes about 750 ML' s. Patient has a good appetite. He is afebrile, no further complaints no overnight events. All labs and reports have been reviewed. 01/20/17- This is a 56-year-old male patient well known to our services. He is being seen examined and evaluated today on the [facility] unit. This patient came into the emergency room with exacerbation of COPD. He states he had been becoming progressively more short of breath throughout the day and has no cough with white yellow sputum. Patient states he did have a subjective fever at home. He denies any chills or sweats at this time. He did have minimal positive response from updrafts given by EMS on the way to the emergency room. Upon examination the patient's resting up in bed on 3 L of supplemental oxygen. He does wear supplemental oxygen at night only at home at 2 L. He states he continues to get short of breath with exertion or activity as well as with extensive conversation. Patient states that his coughing is causing him generalized muscle aches across his thoracic region. Currently the patient is afebrile all labs and reports have been reviewed. His chest x-ray from yesterday shows a radiographic sequelae of COPD and left basilar subsegmental atelectasis no focal consolidation. Objective - Vital Signs Vital signs: Vital Signs Temp 97.6 F 01/22/17 07:00 Pulse 80 01/22/17 08:35 Resp 16 01/22/17 08:35 BP 173/95 01/22/17 07:00 Pulse Ox 98 01/22/17 08:25 Intake & Output 01/21/17 01/22/17 01/22/17 18:59 06:59 18:59 Intake Total 720 1100 200 Output Total 600 1700 Balance 120 -600 200 Weight 68.039 kg Intake: Oral 720 1100 200 Output: Urine 600 1700 - Exam GENERAL EXAM: Alert, comfortable in no apparent distress. HEAD: Normocephalic. EYES: Normal reaction of pupils, equal size. NOSE: Clear with pink turbinates. THROAT: No erythema or exudates. NECK: No masses, no JVD. CHEST: No chest wall deformity. LUNGS: Equal air entry noted with decreased breath sounds bilaterally as well as expiratory wheezes scattered throughout. CVS: S1 and S2 normal with no audible mumurs, regular rhythm. ABDOMEN: No hepatosplenomegaly, normal bowel sounds, no guarding or rigidity. EXTREMITIES: No edema noted, pedal pulses palpable. SKIN: No rashes CENTRAL NERVOUS SYSTEM: No focal deficits, tone is normal in all 4 extremities. - Labs CBC & Chem 7: 01/21/17 08:03 01/21/17 08:03 Labs: Abnormal Lab Results - Last 24 Hours (Table) 01/21/17 01/21/17 01/21/17 Range/Units 12:23 16:56 20:33 PT (9.0-12.0) sec INR (<1.2) POC Glucose (mg/dL) 121 H 126 H 167 H (75-99) mg/dL 01/22/17 01/22/17 Range/Units 07:19 07:45 PT 13.3 H (9.0-12.0) sec INR 1.4 H (<1.2) POC Glucose (mg/dL) 110 H (75-99) mg/dL Microbiology - Last 24 Hours (Table) 01/19/17 17:52 Blood Culture - Preliminary Blood No Growth after 48 hours Assessment and Plan Plan: Assessment Acute exacerbation of COPD Adult respiratory distress syndrome Acute on chronic hypoxic respiratory failure Acute tracheobronchitis History of bullous lung disease History of bilateral pulmonary emboli Hypertension Plan Medications have been reviewed and will be continued as ordered. Steroids have been tapered. Patient culture pending. Home oxygen assessment will be completed. Initiate and encourage incentive spirometer. Continue with pulmonary hygiene, coughing and deep breathing exercises, and supportive care. Supplemental oxygen to maintain oxygen saturations of 92% or better. Continue nebulizer treatments add budesonide. GI and DVT prophylaxis. Patient should increase activity and ambulation as tolerated. We will continue to monitor labs /results and adjust treatment as necessary. Further recommendations pending. Anticipate discharge in the near future. I performed an examination of the patient and discussed their management with the nurse practitioner. I have reviewed the nurse practitioner's note and agree with the documented findings and plan of care.
[2017-01-22 12:28] LABS: Glucose,Whole Blood 108 mg/dL (75-99)
[2017-01-22] MEDS: SODIUM CHLORIDE 0.9% 1,000 ML IV SCH ×2 (15:00→17:50)
[2017-01-22] MEDS: WARFARIN 3 MG TAB PO SCH (15:51)
--- NOTE | 2017-01-22 16:32 | PN ---
PROGRESS NOTE Dr. Rosario Womack covering for Dr. Octaviano Noble. DATE OF SERVICE: 01/22/2017 Patient is a 56-year-old male who came in about 3 days ago with complaints of shortness of breath, productive cough for clear phlegm and fever and chills. She is seen today sitting up in bed, is awake and alert. Continues to have a coarse loose cough, is feeling somewhat better. He is hemodynamically stable, in no acute distress. PHYSICAL EXAM: VITAL SIGNS: Temp 97, heart rate is 87, respiratory rate is 22, blood pressure is 163/93, O2 saturation 97% on 2 L O2 via nasal cannula. HEENT: Head is normocephalic, atraumatic. Pupils equal, round, react to light. Neck is supple. Trachea is midline. LUNGS: With decreased breath sounds and scattered coarse expiratory wheeze. HEART: S1, S2 heard. Not tachycardic. ABDOMEN: Soft. Bowel sounds are positive. EXTREMITIES: With no edema. NEUROLOGIC: Patient is alert and oriented. Good strength noted to that left upper and lower extremity. LABS: PT is 13.3 with an INR of 1.4. Blood cultures are negative, show no growth. No new imaging to review. IMPRESSION: 1. Chronic obstructive pulmonary disease with acute exacerbation. 2. History of cerebrovascular accident, status post right carotid endarterectomy. 3. History of deep venous thrombosis and pulmonary embolism. 4. Hypertension. 5. Nicotine dependence. PLAN: Continue current medications which have been reviewed. Will add Lovenox 60 mg subcu b.i.d. until the INR is therapeutic. We will increase Coumadin to 5 mg today. Continue GI prophylaxis and Lovenox. Coumadin will cover for DVT prophylaxis. Continue pulmonology recs. Increase activity as tolerated and will continue to follow patient closely making further changes as necessary. MMODL / IJN: [id number] /
[2017-01-22] MEDS: methylPREDNISolone SOD SUCCI 40 MG/ML 1 ML VIAL IV SCH ×2 (16:59→23:07)
[2017-01-22 17:06] LABS: Glucose,Whole Blood 111 mg/dL (75-99)
[2017-01-22 17:10] LABS: INR 1.3 (<1.2); Prothrombin Time 12.8 sec (9.0-12.0)
[2017-01-22] MEDS ORDERED: WARFARIN 5 MG TAB PO ONE (18:00)
[2017-01-22] MEDS: ENOXAPARIN 60 MG/0.6 ML SYRINGE SQ SCH (20:04)
[2017-01-22] MEDS: LATANOPROST 0.005% OPHTH DROPS 2.5 ML BTL BOTH EYES SCH (20:04)
[2017-01-22 20:55] LABS: Glucose,Whole Blood 140 mg/dL (75-99)
[2017-01-23] MEDS: PROMETHAZ-COD 6.25-10 MG/5 ML 5 ML CUP PO PRN ×3 (04:33→17:57)
[2017-01-23] MEDS: HYDROcodone/APAP 10-325MG 1 EACH TAB PO PRN ×3 (06:30→20:37)
[2017-01-23] MEDS: SODIUM CHLORIDE 0.9% 1,000 ML IV SCH ×3 (06:31→23:49)
[2017-01-23] MEDS: IPRATROPIUM-ALBUTEROL 3 ML NEB INHALATION SCH ×4 (07:06→21:01)
[2017-01-23] MEDS: BUDESONIDE 0.5 MG/2 ML NEBU INHALATION SCH ×2 (07:06→21:01)
[2017-01-23 07:55] LABS: Anisocytosis Slight; Basophils % (A) 0 %; CH 25.4; Eosinophils # (A) 0.1 k/uL (0-0.7); Eosinophils % (A) 0 %; HCT 40.9 % (39.0-53.0); HDW 3.11; HGB 11.9 gm/dL (13.0-17.5); Hypochromasia Marked; Luc # (Auto) 0.16; Luc % (Auto) 1; Lymphocytes # (A) 1.3 k/uL (1.0-4.8); Lymphocytes % (A) 10 %; MCH 25.6 pg (25.0-35.0); MCHC 29.2 g/dL (31.0-37.0); MCV 87.5 fL (80.0-100.0); Mean Platelet Volume 7.1; Monocytes # (A) 0.8 k/uL (0-1.0); Monocytes % (A) 6 %; Neutrophils # (A) 10.9 k/uL (1.3-7.7); Neutrophils % (A) 83 %; RBC 4.67 m/uL (4.30-5.90); RDW 16.6 % (11.5-15.5); WBC 13.2 k/uL (3.8-10.6); WBC (Perox) 13.44
[2017-01-23 07:59] LABS: Glucose,Whole Blood 105 mg/dL (75-99)
[2017-01-23 08:05] LABS: ALT 79 U/L (21-72); AST 37 U/L (17-59); Alkaline Phosphatase 73 U/L (38-126); Anion Gap 6 mmol/L; Blood Urea Nitrogen 15 mg/dL (9-20); Carbon Dioxide 31 mmol/L (22-30); Chloride 100 mmol/L (98-107); Glucose 96 mg/dL (74-99); Non-African American GFR(MDRD) >60 (>60 ml/min/1.73 sqM); Potassium 4.8 mmol/L (3.5-5.1); Sodium 137 mmol/L (137-145); Total Bilirubin 0.1 mg/dL (0.2-1.3); Total Protein 6.5 g/dL (6.3-8.2)
[2017-01-23] MEDS: INSULIN LISPRO (humaLOG) 300 UNIT/3 ML VIAL SQ SCH ×4 (08:06→20:39)
[2017-01-23] MEDS: ENOXAPARIN 60 MG/0.6 ML SYRINGE SQ SCH ×2 (08:06→20:38)
[2017-01-23] MEDS: NICOTINE 21MG/24HR PATCH TRANSDERM SCH (08:06)
[2017-01-23] MEDS: methylPREDNISolone SOD SUCCI 40 MG/ML 1 ML VIAL IV SCH ×3 (08:06→23:54)
[2017-01-23] MEDS: FLUoxetine HCL 20 MG CAP PO SCH (08:07)
[2017-01-23] MEDS: METOPROLOL TARTRATE 50 MG TAB PO SCH ×2 (08:07→20:38)
[2017-01-23] MEDS: carBAMazepine 200 MG TAB PO SCH ×2 (08:07→20:38)
[2017-01-23] MEDS: ARIPiprazole 5 MG TAB PO SCH (08:07)
[2017-01-23] MEDS: FAMOTIDINE 20 MG TAB PO SCH (08:08)
--- NOTE | 2017-01-23 08:19 | XR ---
EXAMINATION TYPE: XR chest 2V DATE OF EXAM: 01/23/2017 HISTORY: shortness of breath. REFERENCE: Previous study dated 01/19/2017. FINDINGS: Lung volumes are mildly prominent. There is improved aeration at the left lung base.. Pleur al space are clear. The heart is not enlarged. IMPRESSION: 1. COPD. 2. IMPROVED AERATION, LEFT LUNG BASE.
--- NOTE | 2017-01-23 10:29 | P.PN ---
Subjective Progress Note Date: 01/23/17 01/23/17- patient is being seen examined and evaluated today on rounds. Patient is resting up in bed on 3 L of supplemental oxygen. Shortness of breath continues with exertion, and slowly improving. Chest x-ray from this morning continues to show COPD and has improved aeration in the left lung base. Finalized sputum lab resport is pending. Doing incentive spirometry and pulling volumes of 1250. He is afebrile, no further complaints no overnight events. All labs and reports have been reviewed. 01/22/17- patient is being seen examined and evaluated today on rounds. Upon examination patient's resting up in bed on 3 L of supplemental oxygen via nasal cannula. He states his shortness of breath is slightly improving today. He still has it with exertion however it is less severe. The cough continues to improve. Sputum has been sent and is pending. He continues using incentive spirometer. Ambulation and increase in activity has been encouraged. 01/21/17- patient being seen examined and evaluated today on rounds. Upon examination the patient's resting up in bed on 3 L of supplemental oxygen via nasal cannula. He continues to complain of shortness of breath with exertion or activities EXTENSIVE conversations. Patient states that he continues to cough however it is slightly improving since the cough medicine. The patient is able to bring up some sputum and will be sending that down to the lab for pathology. Patient using incentive spirometer and pulling volumes about 750 ML' s. Patient has a good appetite. He is afebrile, no further complaints no overnight events. All labs and reports have been reviewed. 01/20/17- This is a 56-year-old male patient well known to our services. He is being seen examined and evaluated today on the [facility] unit. This patient came into the emergency room with exacerbation of COPD. He states he had been becoming progressively more short of breath throughout the day and has no cough with white yellow sputum. Patient states he did have a subjective fever at home. He denies any chills or sweats at this time. He did have minimal positive response from updrafts given by EMS on the way to the emergency room. Upon examination the patient's resting up in bed on 3 L of supplemental oxygen. He does wear supplemental oxygen at night only at home at 2 L. He states he continues to get short of breath with exertion or activity as well as with extensive conversation. Patient states that his coughing is causing him generalized muscle aches across his thoracic region. Currently the patient is afebrile all labs and reports have been reviewed. His chest x-ray from yesterday shows a radiographic sequelae of COPD and left basilar subsegmental atelectasis no focal consolidation. Objective - Vital Signs Vital signs: Vital Signs Temp 97.8 F 01/23/17 07:00 Pulse 82 01/23/17 08:00 Resp 16 01/23/17 08:00 BP 177/104 01/23/17 07:00 Pulse Ox 91 L 01/23/17 07:00 Intake & Output 01/22/17 01/23/17 01/23/17 18:59 06:59 18:59 Intake Total 400 Output Total 1000 325 Balance 400 -1000 -325 Intake: Oral 400 Output: Urine 1000 325 Other: # Voids 2 - Exam GENERAL EXAM: Alert, comfortable in no apparent distress. HEAD: Normocephalic. EYES: Normal reaction of pupils, equal size. NOSE: Clear with pink turbinates. THROAT: No erythema or exudates. NECK: No masses, no JVD. CHEST: No chest wall deformity. LUNGS: Equal air entry noted with decreased breath sounds bilaterally as well as expiratory wheezes scattered throughout. CVS: S1 and S2 normal with no audible mumurs, regular rhythm. ABDOMEN: No hepatosplenomegaly, normal bowel sounds, no guarding or rigidity. EXTREMITIES: No edema noted, pedal pulses palpable. SKIN: No rashes CENTRAL NERVOUS SYSTEM: No focal deficits, tone is normal in all 4 extremities. - Labs CBC & Chem 7: 01/23/17 07:15 01/23/17 07:15 Labs: Abnormal Lab Results - Last 24 Hours (Table) 01/22/17 01/22/17 01/22/17 Range/Units 12:21 16:32 16:54 WBC (3.8-10.6) k/uL Hgb (13.0-17.5) gm/dL MCHC (31.0-37.0) g/dL RDW (11.5-15.5) % Neutrophils # (1.3-7.7) k/uL PT 12.8 H (9.0-12.0) sec INR 1.3 H (<1.2) Carbon Dioxide (22-30) mmol/L Creatinine (0.66-1.25) mg/dL POC Glucose (mg/dL) 108 H 111 H (75-99) mg/dL Total Bilirubin (0.2-1.3) mg/dL ALT (21-72) U/L 01/22/17 01/23/17 01/23/17 Range/Units 20:50 07:01 07:15 WBC 13.2 H (3.8-10.6) k/uL Hgb 11.9 L (13.0-17.5) gm/dL MCHC 29.2 L (31.0-37.0) g/dL RDW 16.6 H (11.5-15.5) % Neutrophils # 10.9 H (1.3-7.7) k/uL PT (9.0-12.0) sec INR (<1.2) Carbon Dioxide (22-30) mmol/L Creatinine (0.66-1.25) mg/dL POC Glucose (mg/dL) 140 H 105 H (75-99) mg/dL Total Bilirubin (0.2-1.3) mg/dL ALT (21-72) U/L 01/23/17 Range/Units 07:15 WBC (3.8-10.6) k/uL Hgb (13.0-17.5) gm/dL MCHC (31.0-37.0) g/dL RDW (11.5-15.5) % Neutrophils # (1.3-7.7) k/uL PT (9.0-12.0) sec INR (<1.2) Carbon Dioxide 31 H (22-30) mmol/L Creatinine 0.63 L (0.66-1.25) mg/dL POC Glucose (mg/dL) (75-99) mg/dL Total Bilirubin 0.1 L (0.2-1.3) mg/dL ALT 79 H (21-72) U/L Microbiology - Last 24 Hours (Table) 01/22/17 11:35 Gram Stain - Preliminary Sputum 01/19/17 17:52 Blood Culture - Preliminary Blood No Growth after 72 hours Assessment and Plan Plan: Assessment Acute exacerbation of COPD Adult respiratory distress syndrome Acute on chronic hypoxic respiratory failure Acute tracheobronchitis History of bullous lung disease History of bilateral pulmonary emboli Hypertension Plan Medications have been reviewed and will be continued as ordered. Steroids have been tapered. Patient culture of the sputum is pending. Home oxygen assessment will be completed. Initiate and encourage incentive spirometer. Continue with pulmonary hygiene, coughing and deep breathing exercises, and supportive care. Supplemental oxygen to maintain oxygen saturations of 92% or better. Continue nebulizer treatments add budesonide. GI and DVT prophylaxis. Patient should increase activity and ambulation as tolerated. We will continue to monitor labs/results and adjust treatment as necessary. Further recommendations pending. I performed an examination of the patient and discussed their management with the nurse practitioner. I have reviewed the nurse practitioner's note and agree with the documented findings and plan of care.
--- NOTE | 2017-01-23 11:12 | PN ---
PROGRESS NOTE DATE OF SERVICE: 01/23/2017. HISTORY: The patient is a A 56-year-old male seen standing up in the bathroom shaving. He is afebrile. His blood pressure is elevated today, as noted yesterday as well. We will adjust blood pressure medications. The patient is complaining of not feeling real well today and no too concerned about being discharged home as he was verbalizing yesterday. PHYSICAL EXAMINATION: VITAL SIGNS: Temp 97.8, heart rate 82, respiratory rate 16, blood pressure is 177/104, O2 sats 91% on room air. HEENT: Head is normocephalic, atraumatic. NECK: Supple. Trachea is midline. LUNGS: With decreased breath sounds. Prolonged expiratory phase and end-expiratory wheeze. HEART: S1, S2 heard. Not tachycardic. ABDOMEN: Soft. Bowel sounds are heard. EXTREMITIES: With no edema. NEUROLOGIC: The patient is awake, alert, oriented. Does have a history of CVA. Strength good on that left side. LABORATORY DATA: White count 13.2, hemoglobin 11.9, hematocrit 40.9 with 413,000 platelets. Sodium is 137, potassium 4.8, chloride 100, CO2 is 31, anion gap is 6, BUN 15, creatinine 0.63, glucose is 96, calcium is 9.0, total bilirubin 0.1, AST 37, ALT 79, alkaline phosphatase 73, total protein 6.5, albumin is 3.9. Chest x-ray done this a.m., per imaging page shows COPD, improved aeration of the left lung base. IMPRESSION: 1. Chronic obstructive pulmonary disease with acute exacerbation. 2. History of cerebrovascular accident, status post right carotid endarterectomy. 3. History of deep venous thrombosis and pulmonary embolism. 4. Hypertension. 5. Nicotine dependence. PLAN: Will add Norvasc 5 mg p.o. b.i.d. to current regimen for blood pressure. Check PT and INR now. Continue GI and DVT prophylaxis. We will adjust Coumadin according to the results of the PT/INR. Continue the Lovenox until the INR is therapeutic. Smoking cessation is highly recommended. We will follow patient closely, making further changes as necessary. MMODL / IJN: [id number] /
[2017-01-23 11:58] LABS: INR 1.9 (<1.2); Prothrombin Time 18.4 sec (9.0-12.0)
[2017-01-23 12:04] LABS: Glucose,Whole Blood 101 mg/dL (75-99)
[2017-01-23 17:46] LABS: Glucose,Whole Blood 103 mg/dL (75-99)
[2017-01-23] MEDS: WARFARIN 3 MG TAB PO SCH (17:59)
[2017-01-23] MEDS: amLODIPine 5 MG TAB PO SCH (20:38)
[2017-01-23] MEDS: LATANOPROST 0.005% OPHTH DROPS 2.5 ML BTL BOTH EYES SCH (20:38)
[2017-01-23 20:41] LABS: Glucose,Whole Blood 181 mg/dL (75-99)
[2017-01-24] MEDS: PROMETHAZ-COD 6.25-10 MG/5 ML 5 ML CUP PO PRN ×3 (02:16→17:19)
[2017-01-24] MEDS: ACETAMINOPHEN TAB 325 MG TAB PO PRN (03:57)
[2017-01-24 07:30] LABS: Glucose,Whole Blood 101 mg/dL (75-99)
[2017-01-24] MEDS: INSULIN LISPRO (humaLOG) 300 UNIT/3 ML VIAL SQ SCH ×4 (07:41→21:15)
[2017-01-24] MEDS: BUDESONIDE 0.5 MG/2 ML NEBU INHALATION SCH ×2 (07:49→20:24)
[2017-01-24] MEDS: IPRATROPIUM-ALBUTEROL 3 ML NEB INHALATION SCH ×4 (07:49→20:24)
[2017-01-24] MEDS: ENOXAPARIN 60 MG/0.6 ML SYRINGE SQ SCH (08:06)
[2017-01-24] MEDS: methylPREDNISolone SOD SUCCI 40 MG/ML 1 ML VIAL IV SCH ×2 (08:06→20:26)
[2017-01-24] MEDS: NICOTINE 21MG/24HR PATCH TRANSDERM SCH (08:06)
[2017-01-24] MEDS: ARIPiprazole 5 MG TAB PO SCH (08:07)
[2017-01-24] MEDS: carBAMazepine 200 MG TAB PO SCH ×2 (08:07→20:25)
[2017-01-24] MEDS: HYDROcodone/APAP 10-325MG 1 EACH TAB PO PRN ×3 (08:07→20:26)
[2017-01-24] MEDS: FLUoxetine HCL 20 MG CAP PO SCH (08:07)
[2017-01-24] MEDS: amLODIPine 5 MG TAB PO SCH (08:08)
[2017-01-24] MEDS: FAMOTIDINE 20 MG TAB PO SCH (09:19)
[2017-01-24] MEDS: METOPROLOL TARTRATE 50 MG TAB PO SCH ×2 (09:19→20:25)
[2017-01-24 11:08] LABS: INR 2.2 (<1.2); Prothrombin Time 20.7 sec (9.0-12.0)
[2017-01-24] MEDS: SODIUM CHLORIDE 0.9% 1,000 ML IV SCH ×4 (11:30→16:04)
[2017-01-24 12:33] LABS: Glucose,Whole Blood 103 mg/dL (75-99)
--- NOTE | 2017-01-24 13:41 | P.PN ---
Subjective Progress Note Date: 01/24/17 Principal diagnosis: AECOPD Patient seen and examined covering for Dr. Noble. Patient states his breathing is starting to feel a little bit better. He is hoping to go home tomorrow. The patient denies fevers and chills. He continues to cough and states it is clear phlegm. Objective - Vital Signs Vital signs: Vital Signs Temp 98.0 F 01/24/17 07:00 Pulse 92 01/24/17 11:27 Resp 16 01/24/17 07:00 BP 162/91 01/24/17 07:00 Pulse Ox 90 L 01/24/17 07:00 Intake & Output 01/23/17 01/24/17 01/24/17 18:59 06:59 18:59 Intake Total 320 740 320 Output Total 325 Balance -5 740 320 Weight 68.039 kg Intake: Oral 320 740 320 Output: Urine 325 Other: # Voids 2 3 1 - Exam Gen.: Patient is alert and oriented 3, no acute distress Cardiovascular: Regular rate and rhythm, S1/S2 Lungs: Diminished breath sounds bilaterally with scattered expiratory wheezing Abdomen: Soft nontender nondistended positive bowel sounds Extremities: No edema - Labs CBC & Chem 7: 01/23/17 07:15 01/23/17 07:15 Labs: Abnormal Lab Results - Last 24 Hours (Table) 01/23/17 01/23/17 01/24/17 Range/Units 17:08 20:32 07:22 PT (9.0-12.0) sec INR (<1.2) POC Glucose (mg/dL) 103 H 181 H 101 H (75-99) mg/dL 01/24/17 01/24/17 Range/Units 10:38 12:24 PT 20.7 H (9.0-12.0) sec INR 2.2 H (<1.2) POC Glucose (mg/dL) 103 H (75-99) mg/dL Microbiology - Last 24 Hours (Table) 01/22/17 11:35 Gram Stain - Final Sputum Sputum Culture - Final 01/19/17 17:52 Blood Culture - Preliminary Blood No Growth after 96 hours Assessment and Plan Assessment: Acute exacerbation of COPD/Emphysema Hypoxemia, acute on chronic Left basilar atelectasis Acute tracheobronchitis History of PE Hypertension History of CVA, s/p right CEA Tobacco abuse Coumadin coagulopathy, therapeutic Leukocytosis O2 to maintain saturation greater than or equal to 90% Coumadin dosing for goal INR 2-3 Discontinue Lovenox Smoking cessation Antihypertensives - Increase Norvasc Bronchodilators Antibiotics: Azithromycin Steroid taper KVO IVF Sputum culture - normal isaiah Incentive spirometry and pulmonary hygiene GI and DVT prophylaxis Covering for Dr. Noble
[2017-01-24 17:11] LABS: Glucose,Whole Blood 102 mg/dL (75-99)
[2017-01-24] MEDS: WARFARIN 3 MG TAB PO SCH (17:19)
[2017-01-24] MEDS: LATANOPROST 0.005% OPHTH DROPS 2.5 ML BTL BOTH EYES SCH (20:24)
[2017-01-24] MEDS: amLODIPine 10 MG TAB PO SCH (20:26)
[2017-01-24 21:01] LABS: Glucose,Whole Blood 149 mg/dL (75-99)
[2017-01-25] MEDS: HYDROcodone/APAP 10-325MG 1 EACH TAB PO PRN ×2 (04:17→10:39)
[2017-01-25] MEDS: INSULIN LISPRO (humaLOG) 300 UNIT/3 ML VIAL SQ SCH ×2 (07:17→11:47)
[2017-01-25 07:20] LABS: Glucose,Whole Blood 89 mg/dL (75-99)
[2017-01-25] MEDS: amLODIPine 10 MG TAB PO SCH (07:21)
[2017-01-25] MEDS: METOPROLOL TARTRATE 50 MG TAB PO SCH (07:21)
[2017-01-25] MEDS: FAMOTIDINE 20 MG TAB PO SCH (07:21)
[2017-01-25] MEDS: carBAMazepine 200 MG TAB PO SCH (07:21)
[2017-01-25] MEDS: methylPREDNISolone SOD SUCCI 40 MG/ML 1 ML VIAL IV SCH (07:21)
[2017-01-25] MEDS: NICOTINE 21MG/24HR PATCH TRANSDERM SCH (07:22)
[2017-01-25] MEDS: ARIPiprazole 5 MG TAB PO SCH (07:22)
[2017-01-25] MEDS: FLUoxetine HCL 20 MG CAP PO SCH (07:22)
[2017-01-25] MEDS: PROMETHAZ-COD 6.25-10 MG/5 ML 5 ML CUP PO PRN (07:34)
[2017-01-25] MEDS: IPRATROPIUM-ALBUTEROL 3 ML NEB INHALATION SCH ×2 (07:37→11:10)
[2017-01-25] MEDS: BUDESONIDE 0.5 MG/2 ML NEBU INHALATION SCH (07:37)
--- NOTE | 2017-01-25 08:08 | P.PN ---
Subjective Progress Note Date: 01/24/17 Principal diagnosis: Acute COPD exacerbation, purulent tracheobronchitis, acute on chronic hypoxic respiratory failure 01/24/17, patient seen and evaluated examined during the rounds his shortness of breath is slightly better cough congestion and sputum production has improved still have a light yellow thick sputum production he gets short of breath on activity and exertion. He remains on breathing treatment and bronchodilators tolerating very well is actively participating in deep breathing exercises incentive spirometry as well. He feels that his thick phlegm is breaking up and feels less congested. 01/23/17- patient is being seen examined and evaluated today on rounds. Patient is resting up in bed on 3 L of supplemental oxygen. Shortness of breath continues with exertion, and slowly improving. Chest x-ray from this morning continues to show COPD and has improved aeration in the left lung base. Finalized sputum lab resport is pending. Doing incentive spirometry and pulling volumes of 1250. He is afebrile, no further complaints no overnight events. All labs and reports have been reviewed. 01/22/17- patient is being seen examined and evaluated today on rounds. Upon examination patient's resting up in bed on 3 L of supplemental oxygen via nasal cannula. He states his shortness of breath is slightly improving today. He still has it with exertion however it is less severe. The cough continues to improve. Sputum has been sent and is pending. He continues using incentive spirometer. Ambulation and increase in activity has been encouraged. 01/21/17- patient being seen examined and evaluated today on rounds. Upon examination the patient's resting up in bed on 3 L of supplemental oxygen via nasal cannula. He continues to complain of shortness of breath with exertion or activities EXTENSIVE conversations. Patient states that he continues to cough however it is slightly improving since the cough medicine. The patient is able to bring up some sputum and will be sending that down to the lab for pathology. Patient using incentive spirometer and pulling volumes about 750 ML' s. Patient has a good appetite. He is afebrile, no further complaints no overnight events. All labs and reports have been reviewed. 01/20/17- This is a 56-year-old male patient well known to our services. He is being seen examined and evaluated today on the [facility] unit. This patient came into the emergency room with exacerbation of COPD. He states he had been becoming progressively more short of breath throughout the day and has no cough with white yellow sputum. Patient states he did have a subjective fever at home. He denies any chills or sweats at this time. He did have minimal positive response from updrafts given by EMS on the way to the emergency room. Upon examination the patient's resting up in bed on 3 L of supplemental oxygen. He does wear supplemental oxygen at night only at home at 2 L. He states he continues to get short of breath with exertion or activity as well as with extensive conversation. Patient states that his coughing is causing him generalized muscle aches across his thoracic region. Currently the patient is afebrile all labs and reports have been reviewed. His chest x-ray from yesterday shows a radiographic sequelae of COPD and left basilar subsegmental atelectasis no focal consolidation. Objective - Vital Signs Vital signs: Temperature is 96.7, heart rate 91, respiratory 18, blood pressure 118/74, oxygen saturation on 2 L 94% - Exam GENERAL EXAM: Alert, comfortable in no apparent distress. HEAD: Normocephalic. EYES: Normal reaction of pupils, equal size. NOSE: Clear with pink turbinates. THROAT: No erythema or exudates. NECK: No masses, no JVD. CHEST: No chest wall deformity. LUNGS: Equal air entry noted with decreased breath sounds bilaterally as well as expiratory wheezes scattered throughout, patient did have episodes of coughing and taking deep breath indicated above ongoing inflammation into the airways. CVS: S1 and S2 normal with no audible mumurs, regular rhythm. ABDOMEN: No hepatosplenomegaly, normal bowel sounds, no guarding or rigidity. EXTREMITIES: No edema noted, pedal pulses palpable. SKIN: No rashes CENTRAL NERVOUS SYSTEM: No focal deficits, tone is normal in all 4 extremities. - Labs CBC & Chem 7: 01/23/17 07:15 01/23/17 07:15 Labs: Abnormal Lab Results - Last 24 Hours (Table) 01/24/17 01/24/17 01/24/17 Range/Units 10:38 12:24 16:55 PT 20.7 H (9.0-12.0) sec INR 2.2 H (<1.2) POC Glucose (mg/dL) 103 H 102 H (75-99) mg/dL 01/24/17 Range/Units 20:39 PT (9.0-12.0) sec INR (<1.2) POC Glucose (mg/dL) 149 H (75-99) mg/dL Microbiology - Last 24 Hours (Table) 01/19/17 17:52 Blood Culture - Preliminary Blood No Growth after 120 hours 01/22/17 11:35 Gram Stain - Final Sputum Sputum Culture - Final Assessment and Plan Assessment: Assessment Left lower lobe pneumonia, clinically and radiographically improving as noted on x-ray performed 01/23/2017 Acute exacerbation of COPD Acute on chronic hypoxic respiratory failure Acute tracheobronchitis History of bullous lung disease History of bilateral pulmonary emboli Hypertension and high Plan Would maintain on current medications, continue deep breathing exercises incentive spirometry continue breathing treatments and steroids Medications have been reviewed and will be continued as ordered. Steroids have been tapered. Patient culture of the sputum is pending. Home oxygen assessment will be completed. Initiate and encourage incentive spirometer. Continue with pulmonary hygiene, coughing and deep breathing exercises, and supportive care. Supplemental oxygen to maintain oxygen saturations of 92% or better. Continue nebulizer treatments add budesonide. GI and DVT prophylaxis. Patient should increase activity and ambulation as tolerated. We will continue to monitor labs /results and adjust treatment as necessary. Further recommendations pending. Time with Patient: Greater than 30
--- NOTE | 2017-01-25 08:11 | P.PN ---
Subjective Progress Note Date: 01/25/17 Principal diagnosis: Left lower lobe pneumonia, Acute COPD exacerbation, purulent tracheobronchitis, acute on chronic hypoxic respiratory failure 01/25/2017 patient is evaluated on fourth floor he is currently receiving breathing treatments is still have some cough but less productive. The cough is being affected his nighttime sleep. His sputum production has improved he has light yellow but is still thick sputum production denies any chest tightness or pain shortness of breath has improved she feels almost coming back to baseline, he is requesting to be discharged home and follow-up in outpatient setting 01/24/17, patient seen and evaluated examined during the rounds his shortness of breath is slightly better cough congestion and sputum production has improved still have a light yellow thick sputum production he gets short of breath on activity and exertion. He remains on breathing treatment and bronchodilators tolerating very well is actively participating in deep breathing exercises incentive spirometry as well. He feels that his thick phlegm is breaking up and feels less congested. 01/23/17- patient is being seen examined and evaluated today on rounds. Patient is resting up in bed on 3 L of supplemental oxygen. Shortness of breath continues with exertion, and slowly improving. Chest x-ray from this morning continues to show COPD and has improved aeration in the left lung base. Finalized sputum lab resport is pending. Doing incentive spirometry and pulling volumes of 1250. He is afebrile, no further complaints no overnight events. All labs and reports have been reviewed. 01/22/17- patient is being seen examined and evaluated today on rounds. Upon examination patient's resting up in bed on 3 L of supplemental oxygen via nasal cannula. He states his shortness of breath is slightly improving today. He still has it with exertion however it is less severe. The cough continues to improve. Sputum has been sent and is pending. He continues using incentive spirometer. Ambulation and increase in activity has been encouraged. 01/21/17- patient being seen examined and evaluated today on rounds. Upon examination the patient's resting up in bed on 3 L of supplemental oxygen via nasal cannula. He continues to complain of shortness of breath with exertion or activities EXTENSIVE conversations. Patient states that he continues to cough however it is slightly improving since the cough medicine. The patient is able to bring up some sputum and will be sending that down to the lab for pathology. Patient using incentive spirometer and pulling volumes about 750 ML' s. Patient has a good appetite. He is afebrile, no further complaints no overnight events. All labs and reports have been reviewed. 01/20/17- This is a 56-year-old male patient well known to our services. He is being seen examined and evaluated today on the [facility] unit. This patient came into the emergency room with exacerbation of COPD. He states he had been becoming progressively more short of breath throughout the day and has no cough with white yellow sputum. Patient states he did have a subjective fever at home. He denies any chills or sweats at this time. He did have minimal positive response from updrafts given by EMS on the way to the emergency room. Upon examination the patient's resting up in bed on 3 L of supplemental oxygen. He does wear supplemental oxygen at night only at home at 2 L. He states he continues to get short of breath with exertion or activity as well as with extensive conversation. Patient states that his coughing is causing him generalized muscle aches across his thoracic region. Currently the patient is afebrile all labs and reports have been reviewed. His chest x-ray from yesterday shows a radiographic sequelae of COPD and left basilar subsegmental atelectasis no focal consolidation. Objective - Vital Signs Vital signs: Vital Signs Temp 97.7 F 01/25/17 07:00 Pulse 98 01/25/17 07:49 Resp 18 01/25/17 07:00 BP 189/98 01/25/17 07:00 Pulse Ox 96 01/25/17 07:39 Intake & Output 01/24/17 01/25/17 01/25/17 19:59 06:59 18:59 Intake Total Balance Weight Intake: Oral Other: # Voids - Exam GENERAL EXAM: Alert, comfortable in no apparent distress. HEAD: Normocephalic. EYES: Normal reaction of pupils, equal size. NOSE: Clear with pink turbinates. THROAT: No erythema or exudates. NECK: No masses, no JVD. CHEST: No chest wall deformity. LUNGS: Equal air entry noted with decreased breath sounds bilaterally as well as expiratory wheezes scattered throughout, patient did have episodes of coughing and taking deep breath indicated above ongoing inflammation into the airways. CVS: S1 and S2 normal with no audible mumurs, regular rhythm. ABDOMEN: No hepatosplenomegaly, normal bowel sounds, no guarding or rigidity. EXTREMITIES: No edema noted, pedal pulses palpable. SKIN: No rashes CENTRAL NERVOUS SYSTEM: No focal deficits, tone is normal in all 4 extremities. - Labs CBC & Chem 7: 01/23/17 07:15 01/23/17 07:15 Labs: Abnormal Lab Results - Last 24 Hours (Table) 01/24/17 01/24/17 01/24/17 Range/Units 10:38 12:24 16:55 PT 20.7 H (9.0-12.0) sec INR 2.2 H (<1.2) POC Glucose (mg/dL) 103 H 102 H (75-99) mg/dL 01/24/17 Range/Units 20:39 PT (9.0-12.0) sec INR (<1.2) POC Glucose (mg/dL) 149 H (75-99) mg/dL Microbiology - Last 24 Hours (Table) 01/19/17 17:52 Blood Culture - Preliminary Blood No Growth after 120 hours 01/22/17 11:35 Gram Stain - Final Sputum Sputum Culture - Final Assessment and Plan Assessment: Assessment Left lower lobe pneumonia, clinically and radiographically improving as noted on x-ray performed 01/23/2017 Acute exacerbation of COPD Acute on chronic hypoxic respiratory failure Acute tracheobronchitis History of bullous lung disease History of bilateral pulmonary emboli Hypertension and high Plan Would maintain on current medications, continue deep breathing exercises incentive spirometry continue breathing treatments and steroids Medications have been reviewed and will be continued as ordered. Steroids have been tapered. Patient culture of the sputum is pending. Home oxygen assessment will be completed. Initiate and encourage incentive spirometer. Continue with pulmonary hygiene, coughing and deep breathing exercises, and supportive care. Supplemental oxygen to maintain oxygen saturations of 92% or better. Continue nebulizer treatments add budesonide. GI and DVT prophylaxis. Patient should increase activity and ambulation as tolerated. Patient can be discharged home from pulmonary standpoint is prescription for DuoNeb, Pulmicort, Zithromax, Medrol Dosepak, and Tussionex has been provided we'll follow this patient in outpatient setting Time with Patient: Greater than 30
[2017-01-25] MEDS ORDERED: AZITHROMYCIN 250 MG TAB PO SCH (09:00)
[2017-01-25 11:54] LABS: Glucose,Whole Blood 129 mg/dL (75-99)
[2017-01-25 14:35] VITALS: BP 136/77; PULSE 100; RESP 16; TEMP 96.9
--- NOTE | 2017-01-25 15:02 | P.DS ---
Providers Date of admission: 01/19/17 19:37 Attending physician: Octaviano Noble Consults: 01/19/17 19:38 Consult Physician Routine Consulting Provider: Sumanth Fajardo Consult Reason/Comments: COPD exacerbation Do you want consulting provider notified?: Yes Primary care physician: [facility] Course: 01/25/2017 patient is evaluated on fourth floor he is currently receiving breathing treatments is still have some cough but less productive. The cough is being affected his nighttime sleep. His sputum production has improved he has light yellow but is still thick sputum production denies any chest tightness or pain shortness of breath has improved she feels almost coming back to baseline, he is requesting to be discharged home and follow-up in outpatient setting 01/24/17, patient seen and evaluated examined during the rounds his shortness of breath is slightly better cough congestion and sputum production has improved still have a light yellow thick sputum production he gets short of breath on activity and exertion. He remains on breathing treatment and bronchodilators tolerating very well is actively participating in deep breathing exercises incentive spirometry as well. He feels that his thick phlegm is breaking up and feels less congested. 01/23/17- patient is being seen examined and evaluated today on rounds. Patient is resting up in bed on 3 L of supplemental oxygen. Shortness of breath continues with exertion, and slowly improving. Chest x-ray from this morning continues to show COPD and has improved aeration in the left lung base. Finalized sputum lab resport is pending. Doing incentive spirometry and pulling volumes of 1250. He is afebrile, no further complaints no overnight events. All labs and reports have been reviewed. 01/22/17- patient is being seen examined and evaluated today on rounds. Upon examination patient's resting up in bed on 3 L of supplemental oxygen via nasal cannula. He states his shortness of breath is slightly improving today. He still has it with exertion however it is less severe. The cough continues to improve. Sputum has been sent and is pending. He continues using incentive spirometer. Ambulation and increase in activity has been encouraged. 01/21/17- patient being seen examined and evaluated today on rounds. Upon examination the patient's resting up in bed on 3 L of supplemental oxygen via nasal cannula. He continues to complain of shortness of breath with exertion or activities EXTENSIVE conversations. Patient states that he continues to cough however it is slightly improving since the cough medicine. The patient is able to bring up some sputum and will be sending that down to the lab for pathology. Patient using incentive spirometer and pulling volumes about 750 ML' s. Patient has a good appetite. He is afebrile, no further complaints no overnight events. All labs and reports have been reviewed. 01/20/17- This is a 56-year-old male patient well known to our services. He is being seen examined and evaluated today on the [facility] unit. This patient came into the emergency room with exacerbation of COPD. He states he had been becoming progressively more short of breath throughout the day and has no cough with white yellow sputum. Patient states he did have a subjective fever at home. He denies any chills or sweats at this time. He did have minimal positive response from updrafts given by EMS on the way to the emergency room. Upon examination the patient's resting up in bed on 3 L of supplemental oxygen. He does wear supplemental oxygen at night only at home at 2 L. He states he continues to get short of breath with exertion or activity as well as with extensive conversation. Patient states that his coughing is causing him generalized muscle aches across his thoracic region. Currently the patient is afebrile all labs and reports have been reviewed. His chest x-ray from yesterday shows a radiographic sequelae of COPD and left basilar subsegmental atelectasis no focal consolidation. Patient Condition at Discharge: Stable Plan - Discharge Summary Discharge Rx Participant: No New Discharge Prescriptions: New methylPREDNISolone Dose Pack [Medrol Dose Pack] 4 mg PO DIRECTED #21 package Azithromycin 500 mg PO DAILY #5 tablet Budesonide [Pulmicort] 0.5 mg INHALATION BID #60 neb Ipratropium-Albuterol Nebulize [Duoneb 0.5 mg-3 mg/3 ml Soln] 3 ml INHALATION QID #120 neb CHLORPHEN-HYDROcod 8-10mg/5ml [Tussionex] 5 ml PO Q12HR #250 ml amLODIPine [Norvasc] 10 mg PO BID #60 tablet amLODIPine [Norvasc] 10 mg PO BID #60 tab Azithromycin [Zithromax] 250 mg PO DAILY #7 tab Budesonide [Pulmicort] 0.5 mg INHALATION RT-BID #60 nebu Ipratropium-Albuterol Nebulize [Duoneb 0.5 mg-3 mg/3 ml Soln] 3 ml INHALATION RT-QID #120 ampul.neb Ipratropium-Albuterol Nebulize [Duoneb 0.5 mg-3 mg/3 ml Soln] 3 ml INHALATION RT-Q2H PRN #120 ampul.neb PRN Reason: Shortness Of Breath Or Wheezing Warfarin [Coumadin] 3 mg PO DAILY@1800 tab Continue carBAMazepine [TEGretol] 200 mg PO BID Latanoprost [Xalatan 0.005%] 1 drop BOTH EYES HS Metoprolol Tartrate [Lopressor] 50 mg PO BID FLUoxetine HCL [PROzac] 20 mg PO DAILY ARIPiprazole [Abilify] 5 mg PO DAILY Warfarin [Coumadin] 3 mg PO DAILY HYDROcodone/APAP 10-325MG [Viper 10-325] 1 tab PO QID PRN PRN Reason: Pain Discharge Medication List carBAMazepine [TEGretol] 200 mg PO BID 12/22/13 [History] Latanoprost [Xalatan 0.005%] 1 drop BOTH EYES HS 05/29/16 [History] ARIPiprazole [Abilify] 5 mg PO DAILY 01/19/17 [History] FLUoxetine HCL [PROzac] 20 mg PO DAILY 01/19/17 [History] HYDROcodone/APAP 10-325MG [Viper 10-325] 1 tab PO QID PRN 01/19/17 [History] Metoprolol Tartrate [Lopressor] 50 mg PO BID 01/19/17 [History] Warfarin [Coumadin] 3 mg PO DAILY 01/19/17 [History] Azithromycin 500 mg PO DAILY #5 tablet 01/25/17 [Rx] Azithromycin [Zithromax] 250 mg PO DAILY #7 tab 01/25/17 [Rx] Budesonide [Pulmicort] 0.5 mg INHALATION BID #60 neb 01/25/17 [Rx] Budesonide [Pulmicort] 0.5 mg INHALATION RT-BID #60 nebu 01/25/17 [Rx] CHLORPHEN-HYDROcod 8-10mg/5ml [Tussionex] 5 ml PO Q12HR #250 ml 01/25/17 [Rx] Ipratropium-Albuterol Nebulize [Duoneb 0.5 mg-3 mg/3 ml Soln] 3 ml INHALATION QID #120 neb 01/25/17 [Rx] Ipratropium-Albuterol Nebulize [Duoneb 0.5 mg-3 mg/3 ml Soln] 3 ml INHALATION RT -Q2H PRN #120 ampul.neb 01/25/17 [Rx] Ipratropium-Albuterol Nebulize [Duoneb 0.5 mg-3 mg/3 ml Soln] 3 ml INHALATION RT -QID #120 ampul.neb 01/25/17 [Rx] Warfarin [Coumadin] 3 mg PO DAILY@1800 tab 01/25/17 [Rx] amLODIPine [Norvasc] 10 mg PO BID #60 tab 01/25/17 [Rx] amLODIPine [Norvasc] 10 mg PO BID #60 tablet 01/25/17 [Rx] methylPREDNISolone Dose Pack [Medrol Dose Pack] 4 mg PO DIRECTED #21 package 01/25/17 [Rx] Follow up Appointment(s)/Referral(s): Octaviano Noble MD [Primary Care Provider] - 1-2 days (call Thursday for appointment, office closed) Sumanth Fajardo MD [STAFF PHYSICIAN] - 10 Days (office closed, call Thursday for f/u in 1-2 weeks) [facility] Visiting Nurse, [NON-STAFF] - Patient Instructions/Handouts: How to Stop Smoking (DC), COPD (Chronic Obstructive Pulmonary Disease) (DC) Activity/Diet/Wound Care/Special Instructions: No smoking, cessation information provided. Discharge Disposition: HOME WITH HOME HEALTH SERVICES
--- NOTE | 2017-03-08 10:42 | P.HPIM ---
History of Present Illness H&P Date: 01/19/17 Chief Complaint: Shortness of breath cough congestionOutpatient treatment Patient came into the hospital for acute shortness of breath/COPD exacerbation after failing outpatient treatment with breathing treatments and Biaxin steroids patient due to significant decrease in his normal baseline to his breathing and failed ER treatment given patient was admitted to hospital for IV steroids updraft treatments IV antibiotics pulmonary embolism will need to be ruled out as he is a history of primary embolism was not had any hemoptysis tachypnea tachycardia please see if Review of Systems Eyes: denies as per HPI Ears: deny: decreased hearing, ear discharge, earache, tinnitus Ears, nose, mouth and throat: Reports as per HPI Cardiovascular: Reports decreased exercise tolerance, Reports dyspnea on exertion, Reports high blood pressure, Reports shortness of breath Respiratory: Reports cough with sputum, Reports sleep apnea Gastrointestinal: Reports loss of appetite, Reports nausea Genitourinary: Reports as per HPI Musculoskeletal: Reports frequent falls Musculoskeletal: bilateral: knee pain, knee stiffness, knee swelling Integumentary: Reports dryness Neurological: Reports gait dysfunction Psychiatric: Reports as per HPI Endocrine: Reports as per HPI Hematologic/Lymphatic: Reports as per HPI Allergic/Immunologic: Reports as per HPI Past Medical History Past Medical History: COPD, CVA/TIA, Deep Vein Thrombosis (DVT), Eye Disorder, GI Bleed, Hypertension, Osteoarthritis (OA), Pneumonia, Pulmonary Embolus (PE), Respiratory Disorder, Seizure Disorder Additional Past Medical History / Comment(s): Respiratory failure with O2 at 2l , tracheobronchitis, pleurisy, bollous lung disease, bilateral pulmonary embolus , last SEIZURE 2016, PERFORATED ULCER 2005 , R leg DVT, CHRONIC BACK PAIN, DDD/ DJD, TIA, MIGRAINES, bilateral TINNITUS, WAS TOLD 20 YEARS AGO HE HAD ALCOHOLIC HEPATITIS, bilateral GLAUCOMA, stroke 2017 History of Any Multi-Drug Resistant Organisms: None Reported Past Surgical History: Bowel Resection, Hernia Repair, Orthopedic Surgery Additional Past Surgical History / Comment(s): ulcer repair, EGD/COLONOSCOPY,, JOSIAH KNEE ARTHROSCOPY, abdominal hernia repair. 05/2016 bowel resection with colostomy Past Anesthesia/Blood Transfusion Reactions: Motion Sickness Past Psychological History: Depression Additional Psychological History / Comment(s): . Smoking Status: Current some day smoker Past Alcohol Use History: None Reported Additional Past Alcohol Use History / Comment(s): Pt states he started smoking as a teen and smoking 6-7 cigarettes daily but now is down to a few every other day. He states he has hx of alcoholism drinks one beer a day with dinner Past Drug Use History: None Reported - Past Family History Sister(s) Family Medical History: Cancer Additional Family Medical History / Comment(s): SKIN CANCER Mother Family Medical History: Cancer Additional Family Medical History / Comment(s): BREAST Father Additional Family Medical History / Comment(s): YELLOW JAUNDICE, MALARIA FROM WW2, EMPHYSEMA Brother(s) Family Medical History: Cancer Additional Family Medical History / Comment(s): SKIN Medications and Allergies Home Medications Medication Instructions Recorded Confirmed Type carBAMazepine [TEGretol] 200 mg PO BID 12/22/13 01/28/17 History Latanoprost [Xalatan 0.005%] 1 drop BOTH EYES HS 05/29/16 01/28/17 History FLUoxetine HCL [PROzac] 20 mg PO DAILY 01/19/17 01/28/17 History Metoprolol Tartrate [Lopressor] 50 mg PO BID 01/19/17 01/28/17 History Warfarin [Coumadin] 3 mg PO DAILY@1800 tab 01/25/17 01/28/17 Rx ARIPiprazole [Abilify] 5 mg PO DAILY 01/28/17 01/28/17 History Azithromycin [Zithromax] 500 mg PO DAILY 01/28/17 01/28/17 History Budesonide [Pulmicort] 0.5 mg INHALATION RT-BID 01/28/17 01/28/17 History Ipratropium-Albuterol Nebulize 3 ml INHALATION RT-QID PRN 01/28/17 01/28/17 History [Duoneb 0.5 mg-3 mg/3 ml Soln] methylPREDNISolone Dose Pack See Taper PO DIRECTED 01/28/17 01/28/17 History [Medrol Dose Pack] Acetaminophen-Codeine 300-30mg 1 tab PO Q6H PRN 02/02/17 02/02/17 History [Tylenol #3] amLODIPine [Norvasc] 5 mg PO DAILY 02/02/17 02/02/17 History Allergies Allergy/AdvReac Type Severity Reaction Status Date / Time varenicline tartrate Allergy Intermediate Rash/Hives Verified 01/28/17 22:10 [From Chantix] ampicillin Allergy Rash/Hives Verified 01/28/17 22:10 Physical Exam - Constitutional General appearance: average body habitus - EENT Eyes: PERRLA ENT: normal oropharynx Ears: bilateral: normal - Neck Neck: normal ROM Carotids: bilateral: upstroke normal Thyroid: bilateral: normal size - Respiratory Respiratory: bilateral: rales, rhonchi, wheezing - Cardiovascular Rhythm: regular Heart sounds: normal: S1, S2 - Gastrointestinal General gastrointestinal: absent bowel sounds, normal bowel sounds Localized gastrointestinal: surgical scar: diffuse - Integumentary Integumentary: pale - Neurologic Neurologic: CNII-XII intact - Musculoskeletal Musculoskeletal: gait normal - Psychiatric Psychiatric: A&O x's 3 Results CBC & Chem 7: 01/23/17 07:15 01/23/17 07:15 Thrombosis Risk Factor Assmnt - Choose All That Apply Any of the Below Risk Factors Present?: Yes Each Factor Represents 1 point: Age 41-60 years Other Risk Factors: No Other congenital or acquired thrombophilia - If yes, enter type in comment: No Thrombosis Risk Factor Assessment Total Risk Factor Score: 1 Thrombosis Risk Factor Assessment Level: Low Risk Assessment and Plan Assessment: Acute COPD exacerbation Acute hypoxemic respiratory failure Acute tracheobronchitis Seizures History of pulmonary embolism Time with Patient: Greater than 30
== END 2017-01-25 15:29 | disposition home health service (06) | DRG 190 ==
LOC: EC 17:16 → 4MS4W 19:37
PROVIDERS: ADMIT Family Medicine; ATTEND Family Medicine
DX: J44.1 Chronic obstructive pulmonary disease with (acute) exacerbation (principal); J18.9 Pneumonia, unspecified organism; J96.21 Acute and chronic respiratory failure with hypoxia; J98.11 Atelectasis; I10 Essential (primary) hypertension; G40.909 Epilepsy, unspecified, not intractable, without status epilepticus; J20.9 Acute bronchitis, unspecified; J44.0 Chronic obstructive pulmonary disease with (acute) lower respiratory infection; H40.9 Unspecified glaucoma; F32.9 Major depressive disorder, single episode, unspecified; G43.909 Migraine, unspecified, not intractable, without status migrainosus; G89.29 Other chronic pain; M19.90 Unspecified osteoarthritis, unspecified site; M54.9 Dorsalgia, unspecified; F17.210 Nicotine dependence, cigarettes, uncomplicated; Z79.01 Long term (current) use of anticoagulants; Z79.899 Other long term (current) drug therapy; Z93.3 Colostomy status; Z86.718 Personal history of other venous thrombosis and embolism; Z86.711 Personal history of pulmonary embolism
CPT/HCPCS: 36415; 71020; 80053; 82550; 82553; 83036; 83735; 83880; 84484; 85025; 85610; 85730; 87040; 87070; 87205; 87502; 93005; 94640; 94760; 96361; 96365; 96375; 99291

== ENCOUNTER 2017-01-28 21:37 | Inpatient (IN) | payer MEDICARE ==
[2017-01-28] MEDS ORDERED: SODIUM CHLORIDE 0.9% 1,000 ML IV STA (21:44)
[2017-01-28 21:54] LABS: Anisocytosis Slight; Basophils % (A) 0 %; CH 24.7; CHCM 29.6; Eosinophils # (A) 0.1 k/uL (0-0.7); Eosinophils % (A) 1 %; HCT 38.3 % (39.0-53.0); HDW 2.79; HGB 11.4 gm/dL (13.0-17.5); Hypochromasia Marked; Luc # (Auto) 0.23; Luc % (Auto) 2; Lymphocytes # (A) 2.2 k/uL (1.0-4.8); Lymphocytes % (A) 16 %; MCH 24.8 pg (25.0-35.0); MCHC 29.8 g/dL (31.0-37.0); MCV 83.4 fL (80.0-100.0); Mean Platelet Volume 7.2; Monocytes # (A) 0.9 k/uL (0-1.0); Monocytes % (A) 6 %; Neutrophils # (A) 10.6 k/uL (1.3-7.7); Neutrophils % (A) 76 %; RBC 4.59 m/uL (4.30-5.90); RDW 18.6 % (11.5-15.5)
[2017-01-28 22:03] LABS: ALT 56 U/L (21-72); AST 24 U/L (17-59); Alkaline Phosphatase 83 U/L (38-126); Anion Gap 10 mmol/L; Blood Urea Nitrogen 19 mg/dL (9-20); Calcium 8.7 mg/dL (8.4-10.2); Carbon Dioxide 28 mmol/L (22-30); Chloride 101 mmol/L (98-107); Glucose 74 mg/dL (74-99); Non-African American GFR(MDRD) >60 (>60 ml/min/1.73 sqM); Potassium 5.1 mmol/L (3.5-5.1); Sodium 139 mmol/L (137-145); Total Bilirubin 0.1 mg/dL (0.2-1.3); Total Protein 6.6 g/dL (6.3-8.2)
[2017-01-28 22:06] LABS: INR 1.5 (<1.2); Partial Thromboplastin Time 25.6 sec (22.0-30.0); Prothrombin Time 14.8 sec (9.0-12.0)
[2017-01-28 22:15] LABS: Creatine Kinase 96 U/L (55-170)
--- NOTE | 2017-01-28 22:23 | CT ---
EXAMINATION TYPE: CT brain wo con for TPA DATE OF EXAM: 01/28/2017 COMPARISON: 12/11/2016 HISTORY: Paralysis of left side. History of stroke. CT DLP: 2357.90 mGycm Automated exposure control for dose reduction was used. FINDINGS: There is cerebral cortical atrophy. There is no mass effect nor midline shift. There is no sign of in tracranial hemorrhage. There is evidence of old irregular cortical infarcts in the right posterior fr ontal lobe and right parietal lobe. Calvarium is intact. There is mucosal thickening in the right max illary sinus. IMPRESSION: OLD RIGHT-SIDED INFARCTS WITHOUT CHANGE COMPARED TO LAST CT SCAN. NO ACUTE INTRACRANIAL ABNORMALITY.
[2017-01-28 22:28] LABS: Creatine Kinase MB 1.6 ng/mL (0.0-2.4); Troponin I <0.012 ng/mL (0.000-0.034)
--- NOTE | 2017-01-28 22:47 | CT ---
EXAMINATION TYPE: CT angio head neck DATE OF EXAM: 01/28/2017 HISTORY: Paralysis of left side. History of stroke. COMPARISON: NONE CT DLP: 415.01 mGycm. Automated Exposure Control for Dose Reduction was Utilized. TECHNIQUE: CTA scan of the neck is performed with IV Contrast, patient injected with 65 mL of Omnipa que 350, axial images are obtained, coronal and sagittal reformatted images are reviewed. Three-D rec onstructed images are created on an independent workstation and reviewed. FINDINGS: There is normal branching pattern of the great vessels on the aortic arch. There is bilateral patency of the vertebral arteries. There is patency of the common internal and external carotid arteries marcio aterally. There is minimal atherosclerotic calcification in the carotid artery bifurcation on the lef t side. There is no evidence of stenosis. There is arterial flow in the vertebrobasilar artery system. There is arterial flow in the anterior m iddle and posterior cerebral arteries. There is a relative lack of flow apparently in the right anter ior cerebral artery. There is no mass effect. There is no evidence of aneurysm or neovascularity. The re is normal contrast opacification of the venous sinuses. IMPRESSION: Negative CT angiogram of the neck. There is flow is seen in only one anterior cerebral artery which is probably the left side and is con sistent with significant occlusive disease in the right anterior cerebral artery. This patient has ol d infarct in the right frontal lobe and right parietal lobe.
--- NOTE | 2017-01-28 22:49 | XR ---
EXAMINATION TYPE: XR chest 2V DATE OF EXAM: 01/28/2017 COMPARISON: 01/23/2017 HISTORY: CVA. Altered mental status TECHNIQUE: Frontal and lateral views of the chest are obtained. FINDINGS: There is no heart failure nor confluent pneumonic infiltrate. Bony thorax is intact. Heart size is normal. There are chest leads. IMPRESSION: No active cardiopulmonary disease. No change.
--- NOTE | 2017-01-28 23:40 | ED ---
Neuro HPI - General Chief Complaint: Neuro Symptoms/Deficit Stated Complaint: poss stroke Time Seen by Provider: 01/28/17 21:43 Source: patient, EMS Mode of arrival: EMS Limitations: no limitations - History of Present Illness Is the patient presenting with stroke symptoms?: Yes -: hour(s) (Symptoms started about 1 hour prior to coming to the ER but then he starts improving his symptoms) Initial Comments: 56-year-old gentleman with a history of stroke and right-sided carotid stenosis status post right endarterectomy and CVA in November dysuria that affected his left upper extremity. Today prior to coming to the last several he noticed weakness of the left leg he was unable to bear weight and arrival he was unable to bear weight on his left flank. After per extremity has been weak but this is not anything for the lost stroke. He denies any headaches no blurred vision no slurred speech left extremity is weak no chest pain or shortness of breath no abdominal pain no frequency urgency dysuria Location: left leg (Leg and a she was very weak but as he was in the ER he obtained his strength he was able to lift off the bed) Place: home Severity: moderate Quality: weak, numb Improves With: none Worsens With: none On Anticoagulants: Yes (He has been on Coumadin) Context: sudden onset Associated Symptoms: denies other symptoms Treatments Prior to Arrival: other medication (Coumadin) - Related Data Home Medications: Home Medications Medication Instructions Recorded Confirmed carBAMazepine [TEGretol] 200 mg PO BID 12/22/13 01/28/17 Latanoprost [Xalatan 0.005%] 1 drop BOTH EYES HS 05/29/16 01/28/17 FLUoxetine HCL [PROzac] 20 mg PO DAILY 01/19/17 01/28/17 Metoprolol Tartrate [Lopressor] 50 mg PO BID 01/19/17 01/28/17 ARIPiprazole [Abilify] 5 mg PO DAILY 01/28/17 01/28/17 Azithromycin [Zithromax] 500 mg PO DAILY 01/28/17 01/28/17 Budesonide [Pulmicort] 0.5 mg INHALATION RT-BID 01/28/17 01/28/17 Ipratropium-Albuterol Nebulize 3 ml INHALATION RT-QID PRN 01/28/17 01/28/17 [Duoneb 0.5 mg-3 mg/3 ml Soln] methylPREDNISolone Dose Pack See Taper PO DIRECTED 01/28/17 01/28/17 [Medrol Dose Pack] Previous Rx's Medication Instructions Recorded HYDROcodone/APAP 10-325MG [[place] 1 tab PO Q6H PRN #48 tab 01/25/17 10-325] Warfarin [Coumadin] 3 mg PO DAILY@1800 tab 01/25/17 amLODIPine [Norvasc] 10 mg PO BID #60 tablet 01/25/17 Allergies/Adverse Reactions: Allergies Allergy/AdvReac Type Severity Reaction Status Date / Time varenicline tartrate Allergy Intermediate Rash/Hives Verified 01/28/17 22:10 [From Chantix] ampicillin Allergy Rash/Hives Verified 01/28/17 22:10 Review of Systems ROS Statement: Those systems with pertinent positive or pertinent negative responses have been documented in the HPI. ROS Other: All systems not noted in ROS Statement are negative. General Exam - General Exam Comments Initial Comments: General: The patient is awake and alert, in no distress, and does not appear acutely ill. GCS is 15 Skin: Skin is warm and dry and no rashes or lesions are noted. Eye: Pupils are equal, round and reactive to light, extra-ocular movements are intact; there is normal conjunctiva bilaterally. Ears, nose, mouth and throat: There are moist mucous membranes and no oral lesions. Neck: The neck is supple, there is no tenderness Cardiovascular: There is a regular rate and rhythm. No murmur, rub or gallop is appreciated. Noticed tachycardia Respiratory: To auscultation bilateral, no wheezing no rhonchi no distress respiratory summers noticed Gastrointestinal: Soft, non-distended, non-tender abdomen without masses or organomegaly noted. There is no rebound or guarding present. Bowel sounds are unremarkable. Back: There is no tenderness to palpation in the midline. There is no obvious deformity. Musculoskeletal: Normal ROM, no tenderness, There is no pedal edema. There is no calf tenderness or swelling. No cords were appreciated. Neurological: CN II-XII intact, Cranial nerves III through XII are intact. Sclerae extremity initially was quite flaccid he was unable to lift her mouth and at all but later his strength improved Psychiatric: Cooperative, appropriate mood & affect, normal judgment. Limitations: no limitations Stroke MDM - Lab Data Result diagrams: 01/28/17 21:42 01/28/17 21:42 Lab Results 01/28/17 01/28/17 01/28/17 Range/Units 21:42 21:42 21:42 WBC 14.0 H (3.8-10.6) k/uL RBC 4.59 (4.30-5.90) m/uL Hgb 11.4 L (13.0-17.5) gm/dL Hct 38.3 L (39.0-53.0) % MCV 83.4 (80.0-100.0) fL MCH 24.8 L (25.0-35.0) pg MCHC 29.8 L (31.0-37.0) g/dL RDW 18.6 H (11.5-15.5) % Plt Count 421 (150-450) k/uL Neutrophils % 76 % Lymphocytes % 16 % Monocytes % 6 % Eosinophils % 1 % Basophils % 0 % Neutrophils # 10.6 H (1.3-7.7) k/uL Lymphocytes # 2.2 (1.0-4.8) k/uL Monocytes # 0.9 (0-1.0) k/uL Eosinophils # 0.1 (0-0.7) k/uL Basophils # 0.0 (0-0.2) k/uL Hypochromasia Marked Anisocytosis Slight PT (9.0-12.0) sec INR (<1.2) APTT (22.0-30.0) sec Sodium 139 (137-145) mmol/L Potassium 5.1 (3.5-5.1) mmol/L Chloride 101 (98-107) mmol/L Carbon Dioxide 28 (22-30) mmol/L Anion Gap 10 mmol/L BUN 19 (9-20) mg/dL Creatinine 0.72 (0.66-1.25) mg/dL Est GFR (MDRD) Af Amer >60 (>60 ml/min/1.73 sqM) Est GFR (MDRD) Non-Af >60 (>60 ml/min/1.73 sqM) Glucose 74 (74-99) mg/dL Calcium 8.7 (8.4-10.2) mg/dL Total Bilirubin 0.1 L (0.2-1.3) mg/dL AST 24 (17-59) U/L ALT 56 (21-72) U/L Alkaline Phosphatase 83 (38-126) U/L Total Creatine Kinase 96 (55-170) U/L CK-MB (CK-2) 1.6 (0.0-2.4) ng/mL CK-MB (CK-2) Rel Index 1.7 Troponin I <0.012 (0.000-0.034) ng/mL Total Protein 6.6 (6.3-8.2) g/dL Albumin 3.9 (3.5-5.0) g/dL 01/28/17 Range/Units 21:42 WBC (3.8-10.6) k/uL RBC (4.30-5.90) m/uL Hgb (13.0-17.5) gm/dL Hct (39.0-53.0) % MCV (80.0-100.0) fL MCH (25.0-35.0) pg MCHC (31.0-37.0) g/dL RDW (11.5-15.5) % Plt Count (150-450) k/uL Neutrophils % % Lymphocytes % % Monocytes % % Eosinophils % % Basophils % % Neutrophils # (1.3-7.7) k/uL Lymphocytes # (1.0-4.8) k/uL Monocytes # (0-1.0) k/uL Eosinophils # (0-0.7) k/uL Basophils # (0-0.2) k/uL Hypochromasia Anisocytosis PT 14.8 H (9.0-12.0) sec INR 1.5 H (<1.2) APTT 25.6 (22.0-30.0) sec Sodium (137-145) mmol/L Potassium (3.5-5.1) mmol/L Chloride (98-107) mmol/L Carbon Dioxide (22-30) mmol/L Anion Gap mmol/L BUN (9-20) mg/dL Creatinine (0.66-1.25) mg/dL Est GFR (MDRD) Af Amer (>60 ml/min/1.73 sqM) Est GFR (MDRD) Non-Af (>60 ml/min/1.73 sqM) Glucose (74-99) mg/dL Calcium (8.4-10.2) mg/dL Total Bilirubin (0.2-1.3) mg/dL AST (17-59) U/L ALT (21-72) U/L Alkaline Phosphatase (38-126) U/L Total Creatine Kinase (55-170) U/L CK-MB (CK-2) (0.0-2.4) ng/mL CK-MB (CK-2) Rel Index Troponin I (0.000-0.034) ng/mL Total Protein (6.3-8.2) g/dL Albumin (3.5-5.0) g/dL Past Medical History Past Medical History: COPD, CVA/TIA, Deep Vein Thrombosis (DVT), Eye Disorder, GI Bleed, Hypertension, Osteoarthritis (OA), Pneumonia, Pulmonary Embolus (PE), Respiratory Disorder, Seizure Disorder Additional Past Medical History / Comment(s): Respiratory failure with O2 at 2l , tracheobronchitis, pleurisy, bollous lung disease, bilateral pulmonary embolus , last SEIZURE 2015, PERFORATED ULCER 2005 , R leg DVT, CHRONIC BACK PAIN, DDD/ DJD, TIA, MIGRAINES, bilateral TINNITUS, WAS TOLD 20 YEARS AGO HE HAD ALCOHOLIC HEPATITIS, bilateral GLAUCOMA, stroke 2016 History of Any Multi-Drug Resistant Organisms: None Reported Past Surgical History: Bowel Resection, Hernia Repair, Orthopedic Surgery Additional Past Surgical History / Comment(s): ulcer repair, EGD/COLONOSCOPY,, JOSIAH KNEE ARTHROSCOPY, abdominal hernia repair. 05/2016 bowel resection with colostomy Past Anesthesia/Blood Transfusion Reactions: Motion Sickness Past Psychological History: Depression Smoking Status: Current some day smoker Past Alcohol Use History: None Reported Past Drug Use History: None Reported - Past Family History Sister(s) Family Medical History: Cancer Additional Family Medical History / Comment(s): SKIN CANCER Mother Family Medical History: Cancer Additional Family Medical History / Comment(s): BREAST Father Additional Family Medical History / Comment(s): YELLOW JAUNDICE, MALARIA FROM WW2, EMPHYSEMA Brother(s) Family Medical History: Cancer Additional Family Medical History / Comment(s): SKIN Course Vital Signs 01/28/17 01/28/17 01/28/17 21:45 22:00 22:07 Temperature 97.0 F L Pulse Rate 115 H 115 H 117 H Respiratory 16 18 18 Rate Blood Pressure 147/86 155/86 175/79 O2 Sat by Pulse 98 100 100 Oximetry 11/08/17 11/08/17 22:15 23:05 Temperature 97.2 F L Pulse Rate 122 H 103 H Respiratory 18 18 Rate Blood Pressure 176/86 153/84 O2 Sat by Pulse 99 100 Oximetry 56 EKG shows sinus tachycardia ventricular rate is 121 NV interval is 132 QRS duration is 72 QT/QTC 346/491 and 50 mL EKG does not reveal any ST elevation or ST depression noticed T-wave inversion in lead V1 and V2 Patient was reassessed several times at 2140 he has some improved function of the left lower extremity I did discuss with Dr. Carmelita Wall interventional neurologist he is going to see the images and will call me back he was not a candidate of code stroke since he is on a Coumadin and same and same time if symptoms improved did speak with Dr. Epifanio Noble can admit him to Dr. Miller service and now will consult Dr. young meal in the past he has seen Dr. Lorenzana will continue the Coumadin and his current medications Disposition Clinical Impression: TIA (transient ischemic attack), CVA (cerebral vascular accident), History of CVA (cerebrovascular accident) Disposition: ADMITTED IP TO THIS HOSP Condition: Fair Referrals: Octaviano Noble MD [Primary Care Provider] - 1-2 days
[2017-01-29] MEDS ORDERED: ACETAMINOPHEN TAB 325 MG TAB PO PRN (00:10)
[2017-01-29] MEDS ORDERED: NALOXONE 0.4 MG/ML 1 ML VIAL IV PRN (00:10)
[2017-01-29] MEDS ORDERED: ASPIRIN 81 MG PO STA (00:20)
[2017-01-29] MEDS: HYDROcodone/APAP 10-325MG 1 EACH TAB PO PRN ×3 (04:55→16:58)
[2017-01-29] MEDS ORDERED: guaiFENesin SYRUP 100MG/5ML 200 MG/10 ML CUP PO PRN (06:36)
[2017-01-29] MEDS: IPRATROPIUM-ALBUTEROL 3 ML NEB INHALATION PRN ×4 (07:28→19:18)
[2017-01-29] MEDS: BUDESONIDE 0.5 MG/2 ML NEBU INHALATION SCH ×2 (07:28→19:18)
[2017-01-29 08:07] LABS: Anisocytosis Slight; CH 24.3; CHCM 28.5; HCT 34.7 % (39.0-53.0); HDW 2.76; HGB 10.2 gm/dL (13.0-17.5); Hypochromasia Marked; MCH 25.1 pg (25.0-35.0); MCHC 29.5 g/dL (31.0-37.0); MCV 85.3 fL (80.0-100.0); Mean Platelet Volume 7.1; RBC 4.07 m/uL (4.30-5.90); RDW 18.5 % (11.5-15.5); WBC 10.3 k/uL (3.8-10.6)
[2017-01-29 08:10] LABS: INR 1.6 (<1.2); Prothrombin Time 15.3 sec (9.0-12.0)
[2017-01-29 08:11] LABS: Anion Gap 7 mmol/L; Blood Urea Nitrogen 17 mg/dL (9-20); Calcium 8.4 mg/dL (8.4-10.2); Carbon Dioxide 26 mmol/L (22-30); Chloride 106 mmol/L (98-107); Glucose 86 mg/dL (74-99); Non-African American GFR(MDRD) >60 (>60 ml/min/1.73 sqM); Potassium 4.2 mmol/L (3.5-5.1); Sodium 139 mmol/L (137-145)
[2017-01-29] MEDS: carBAMazepine 200 MG TAB PO SCH ×2 (08:22→21:43)
[2017-01-29] MEDS: FLUoxetine HCL 20 MG CAP PO SCH (08:22)
[2017-01-29] MEDS: METOPROLOL TARTRATE 50 MG TAB PO SCH ×2 (08:22→21:43)
[2017-01-29] MEDS: ARIPiprazole 5 MG TAB PO SCH (08:22)
[2017-01-29] MEDS: amLODIPine 10 MG TAB PO SCH ×2 (08:22→21:44)
[2017-01-29] MEDS: guaiFENesin SYRUP 100MG/5ML 200 MG/10 ML CUP PO PRN ×2 (08:26→21:45)
[2017-01-29] MEDS: NICOTINE 14MG/24HR PATCH TRANSDERM SCH (08:26)
--- NOTE | 2017-01-29 10:13 | P.CRDCN ---
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 The patient stated that also the weakness has gotten worse. No speech problem. No dizziness or lightheadedness and no syncope. The computed tomography scan of the brain did not show any acute abnormalities beside the old stroke. The CTA of the neck came in to be also unremarkable. The EKG showed sinus tachycardia in the beginning without any significant ST or T-wave abnormalities. New The patient does not have any history of coronary artery disease or congestive heart failure or cardiac arrhythmia. He is on Coumadin for history of DVT in the past. The patient denies having any chest pain or discomfort, difficulty breathing, heart racing or fluttering, dizziness or lightheadedness or syncope. The patient had an echocardiogram in November 2016 and that revealed normal LV function without any significant valvular abnormalities. Past Medical History Past Medical History: COPD, CVA/TIA, Deep Vein Thrombosis (DVT), Eye Disorder, GI Bleed, Hypertension, Osteoarthritis (OA), Pneumonia, Pulmonary Embolus (PE), Respiratory Disorder, Seizure Disorder Additional Past Medical History / Comment(s): Respiratory failure with O2 at 2l , tracheobronchitis, pleurisy, bollous lung disease, bilateral pulmonary embolus , last SEIZURE 2015, PERFORATED ULCER 2005 , R leg DVT, CHRONIC BACK PAIN, DDD/ DJD, TIA, MIGRAINES, bilateral TINNITUS, WAS TOLD 20 YEARS AGO HE HAD ALCOHOLIC HEPATITIS, bilateral GLAUCOMA, stroke 2017 History of Any Multi-Drug Resistant Organisms: None Reported Past Surgical History: Bowel Resection, Hernia Repair, Orthopedic Surgery Additional Past Surgical History / Comment(s): ulcer repair, EGD/COLONOSCOPY,, JOSIAH KNEE ARTHROSCOPY, abdominal hernia repair. 05/2016 bowel resection with colostomy Past Anesthesia/Blood Transfusion Reactions: Motion Sickness Past Psychological History: Depression Additional Psychological History / Comment(s): . Smoking Status: Current every day smoker Past Alcohol Use History: None Reported Additional Past Alcohol Use History / Comment(s): Pt states he started smoking as a teen and smoking 6-7 cigarettes daily but now is down to a few every other day. He states he has hx of alcoholism drinks one beer a day with dinner Past Drug Use History: None Reported - Past Family History Sister(s) Family Medical History: Cancer Additional Family Medical History / Comment(s): SKIN CANCER Mother Family Medical History: Cancer Additional Family Medical History / Comment(s): BREAST Father Additional Family Medical History / Comment(s): YELLOW JAUNDICE, MALARIA FROM WW2, EMPHYSEMA Brother(s) Family Medical History: Cancer Additional Family Medical History / Comment(s): SKIN Medications and Allergies Home Medications Medication Instructions Recorded Confirmed Type carBAMazepine [TEGretol] 200 mg PO BID 12/22/13 01/28/17 History Latanoprost [Xalatan 0.005%] 1 drop BOTH EYES HS 05/29/16 01/28/17 History FLUoxetine HCL [PROzac] 20 mg PO DAILY 01/19/17 01/28/17 History Metoprolol Tartrate [Lopressor] 50 mg PO BID 01/19/17 01/28/17 History HYDROcodone/APAP 10-325MG [[place] 1 tab PO Q6H PRN #48 tab 01/25/17 01/28/17 Rx 10-325] Warfarin [Coumadin] 3 mg PO DAILY@1800 tab 01/25/17 01/28/17 Rx amLODIPine [Norvasc] 10 mg PO BID #60 tablet 01/25/17 01/28/17 Rx ARIPiprazole [Abilify] 5 mg PO DAILY 01/28/17 01/28/17 History Azithromycin [Zithromax] 500 mg PO DAILY 01/28/17 01/28/17 History Budesonide [Pulmicort] 0.5 mg INHALATION RT-BID 01/28/17 01/28/17 History Ipratropium-Albuterol Nebulize 3 ml INHALATION RT-QID PRN 01/28/17 01/28/17 History [Duoneb 0.5 mg-3 mg/3 ml Soln] methylPREDNISolone Dose Pack See Taper PO DIRECTED 01/28/17 01/28/17 History [Medrol Dose Pack] Allergies Allergy/AdvReac Type Severity Reaction Status Date / Time varenicline tartrate Allergy Intermediate Rash/Hives Verified 01/28/17 22:10 [From Chantix] ampicillin Allergy Rash/Hives Verified 01/28/17 22:10 Physical Exam Vitals: Vital Signs Temp Pulse Pulse Resp BP BP Pulse Ox 01/29/17 08:00 97.6 F 129 H 20 143/75 96 01/29/17 07:46 100 01/29/17 07:29 112 H 01/29/17 03:52 97.0 F L 91 18 132/81 100 01/29/17 01:58 107 H 18 01/29/17 01:23 97.5 F L 107 H 18 135/74 99 01/29/17 01:03 109 H 18 01/29/17 00:49 97.6 F 134 H 18 143/82 100 01/28/17 23:05 97.2 F L 103 H 18 153/84 100 01/28/17 22:15 122 H 18 176/86 99 01/28/17 22:07 97.0 F L 117 H 18 175/79 100 01/28/17 22:00 115 H 18 155/86 100 01/28/17 21:45 115 H 16 147/86 98 Intake and Output 01/28/17 01/29/17 01/29/17 22:59 06:59 14:59 Intake Total 500 180 Output Total 375 400 Balance 125 -220 Intake: Intake, IV Titration 500 Amount Sodium Chloride 0.9% 1, 500 000 ml @ 100 mls/hr IV . Q10H STA Rx#:[id number] Oral 180 Output: Urine 375 400 Other: Voiding Method Urinal Urinal # Voids 0 Weight 68.946 kg 50 kg - Constitutional General appearance: no acute distress - Respiratory Respiratory: bilateral: CTA - Cardiovascular Rhythm: regular Heart sounds: normal: S1, S2 Results 01/29/17 07:37 01/29/17 07:37 Cardiac Enzymes 01/28/17 01/28/17 Range/Units 21:42 21:42 AST 24 (17-59) U/L CK-MB (CK-2) 1.6 (0.0-2.4) ng/mL Troponin I <0.012 (0.000-0.034) ng/mL Coagulation 01/28/17 01/29/17 Range/Units 21:42 07:37 PT 14.8 H 15.3 H (9.0-12.0) sec APTT 25.6 (22.0-30.0) sec CBC 01/28/17 01/29/17 Range/Units 21:42 07:37 WBC 14.0 H 10.3 (3.8-10.6) k/uL RBC 4.59 4.07 L (4.30-5.90) m/uL Hgb 11.4 L 10.2 L (13.0-17.5) gm/dL Hct 38.3 L 34.7 L (39.0-53.0) % Plt Count 421 310 (150-450) k/uL Comprehensive Metabolic Panel 01/28/17 01/29/17 Range/Units 21:42 07:37 Sodium 139 139 (137-145) mmol/L Potassium 5.1 4.2 (3.5-5.1) mmol/L Chloride 101 106 (98-107) mmol/L Carbon Dioxide 28 26 (22-30) mmol/L BUN 19 17 (9-20) mg/dL Creatinine 0.72 0.63 L (0.66-1.25) mg/dL Glucose 74 86 (74-99) mg/dL Calcium 8.7 8.4 (8.4-10.2) mg/dL AST 24 (17-59) U/L ALT 56 (21-72) U/L Alkaline Phosphatase 83 (38-126) U/L Total Protein 6.6 (6.3-8.2) g/dL Albumin 3.9 (3.5-5.0) g/dL Current Medications Generic Name Dose Route Start Last Admin Trade Name Freq PRN Reason Stop Dose Admin Acetaminophen 650 mg 01/29/17 00:10 Tylenol Tab PO Q6HR PRN Mild Pain or Fever > 100.5 Hydrocodone Bitart/Acetaminophen 1 each 01/29/17 00:17 01/29/17 04:55 [place] 10 PO 1 each Q6H PRN Administration Pain Albuterol/Ipratropium 3 ml 01/29/17 00:17 01/29/17 07:28 Duoneb 0.5 Mg-3 Mg/3 Ml Soln INHALATION 3 ml RT-QID PRN Administration Shortness Of Breath Amlodipine Besylate 10 mg 01/29/17 09:00 01/29/17 08:22 Norvasc PO 10 mg BID EMILY Administration Aripiprazole 5 mg 01/29/17 09:00 01/29/17 08:22 Abilify PO 5 mg DAILY EMILY Administration Azithromycin 500 mg 01/29/17 09:00 Zithromax PO DAILY EMILY Budesonide 0.5 mg 01/29/17 08:00 01/29/17 07:28 Pulmicort INHALATION 0.5 mg RT-BID EMILY Administration Carbamazepine 200 mg 01/29/17 09:00 01/29/17 08:22 Tegretol PO 200 mg BID EMILY Administration Fluoxetine HCl 20 mg 01/29/17 09:00 01/29/17 08:22 Prozac PO 20 mg DAILY EMILY Administration Guaifenesin 200 mg 01/29/17 08:00 01/29/17 08:26 Robitussin PO 200 mg Q6H PRN Administration Cough Latanoprost 1 drops 01/29/17 21:00 Xalatan 0.005% BOTH EYES HS EMILY Metoprolol Tartrate 50 mg 01/29/17 09:00 01/29/17 08:22 Lopressor PO 50 mg BID EMILY Administration Naloxone HCl 0.2 mg 01/29/17 00:10 Narcan IV Q2M PRN Opioid Reversal Nicotine 1 patch 01/29/17 09:00 01/29/17 08:26 Habitrol 14mg/24hr Patch TRANSDERM 1 patch DAILY EMILY Administration Warfarin Sodium 3 mg 01/29/17 18:00 Coumadin PO DAILY@1800 EMILY Intake and Output 01/28/17 01/29/17 01/29/17 22:59 06:59 14:59 Intake Total 500 180 Output Total 375 400 Balance 125 -220 Intake: Intake, IV Titration 500 Amount Sodium Chloride 0.9% 1, 500 000 ml @ 100 mls/hr IV . Q10H STA Rx#:[id number] Oral 180 Output: Urine 375 400 Other: Voiding Method Urinal Urinal # Voids 0 Weight 68.946 kg 50 kg 01/29/17 07:37 01/29/17 07:37 Assessment and Plan Assessment: This is a pleasant 56-year-old gentleman with history of stroke in the past as well as history of DVT on Coumadin presented to the hospital with left sided numbness and possible TIA/CVA. The neurologic workup so far is unremarkable including the computed tomography scan of the brain as well as a CTA of the neck. We will follow-up with the neurology service input to see if the patient will benefit from JOSE. Beside that the patient continues to be hemodynamically stable.
[2017-01-29 10:34] LABS: Cholesterol 170 mg/dL (<200); HDL Cholesterol 71 mg/dL (40-60)
[2017-01-29] MEDS: AZITHROMYCIN 500 MG TAB PO SCH (10:49)
[2017-01-29] MEDS: WARFARIN 3 MG TAB PO SCH (16:57)
--- NOTE | 2017-01-29 19:25 | P.CNNES ---
History of Present Illness Consult date: 01/29/17 History of Present Illness: The patient is a 56-year-old right-handed white male with history of stroke with left-sided weakness who presents to the hospital with increasing left- sided weakness. The patient reports that he presented to the hospital because his left side became weaker and his speech was also affected. Currently feels his left foot is numb on the sole of the foot. He states that this was not present before. He had a stroke in November and this involved left arm and leg as well as his speech. He was in [facility] rehab for 5 days and then discharged home and returned again with pneumonia to the hospital. After the pneumonia he states his stroke symptoms started reappearing to the point where he came to the hospital yesterday. He has a history of right carotid endarterectomy in November. he had a CAT scan of the brain in the emergency room which showed old right-sided infarct. He has a history of pulmonary embolus and DVT and he is on Coumadin. His pro time is 14.8 in the emergency room the case had been discussed with interventional neurologist and it was determined that the patient should continue on Coumadin. Review of Systems Eyes: denies blurred vision, denies pain Cardiovascular: Denies chest pain, Denies shortness of breath Respiratory: Reports as per HPI Musculoskeletal: Denies myalgias Neurological: Denies numbness, Denies weakness Psychiatric: Denies anxiety, Denies depression Past Medical History Past Medical History: COPD, CVA/TIA, Deep Vein Thrombosis (DVT), Eye Disorder, GI Bleed, Hypertension, Osteoarthritis (OA), Pneumonia, Pulmonary Embolus (PE), Respiratory Disorder, Seizure Disorder Additional Past Medical History / Comment(s): Respiratory failure with O2 at 2l , tracheobronchitis, pleurisy, bollous lung disease, bilateral pulmonary embolus , last SEIZURE 2016, PERFORATED ULCER 2005 , R leg DVT, CHRONIC BACK PAIN, DDD/ DJD, TIA, MIGRAINES, bilateral TINNITUS, WAS TOLD 20 YEARS AGO HE HAD ALCOHOLIC HEPATITIS, bilateral GLAUCOMA, stroke 2017 History of Any Multi-Drug Resistant Organisms: None Reported Past Surgical History: Bowel Resection, Hernia Repair, Orthopedic Surgery Additional Past Surgical History / Comment(s): ulcer repair, EGD/COLONOSCOPY,, JOSIAH KNEE ARTHROSCOPY, abdominal hernia repair. 05/2016 bowel resection with colostomy Past Anesthesia/Blood Transfusion Reactions: Motion Sickness Past Psychological History: Depression Additional Psychological History / Comment(s): . Smoking Status: Current every day smoker Past Alcohol Use History: None Reported Additional Past Alcohol Use History / Comment(s): Pt states he started smoking as a teen and smoking 6-7 cigarettes daily but now is down to a few every other day. He states he has hx of alcoholism drinks one beer a day with dinner Past Drug Use History: None Reported - Past Family History Sister(s) Family Medical History: Cancer Additional Family Medical History / Comment(s): SKIN CANCER Mother Family Medical History: Cancer Additional Family Medical History / Comment(s): BREAST Father Additional Family Medical History / Comment(s): YELLOW JAUNDICE, MALARIA FROM WW2, EMPHYSEMA Brother(s) Family Medical History: Cancer Additional Family Medical History / Comment(s): SKIN Medications and Allergies Home Medications Medication Instructions Recorded Confirmed Type carBAMazepine [TEGretol] 200 mg PO BID 12/22/13 01/28/17 History Latanoprost [Xalatan 0.005%] 1 drop BOTH EYES HS 05/29/16 01/28/17 History FLUoxetine HCL [PROzac] 20 mg PO DAILY 01/19/17 01/28/17 History Metoprolol Tartrate [Lopressor] 50 mg PO BID 01/19/17 01/28/17 History HYDROcodone/APAP 10-325MG [[place] 1 tab PO Q6H PRN #48 tab 01/25/17 01/28/17 Rx 10-325] Warfarin [Coumadin] 3 mg PO DAILY@1800 tab 01/25/17 01/28/17 Rx amLODIPine [Norvasc] 10 mg PO BID #60 tablet 01/25/17 01/28/17 Rx ARIPiprazole [Abilify] 5 mg PO DAILY 01/28/17 01/28/17 History Azithromycin [Zithromax] 500 mg PO DAILY 01/28/17 01/28/17 History Budesonide [Pulmicort] 0.5 mg INHALATION RT-BID 01/28/17 01/28/17 History Ipratropium-Albuterol Nebulize 3 ml INHALATION RT-QID PRN 01/28/17 01/28/17 History [Duoneb 0.5 mg-3 mg/3 ml Soln] methylPREDNISolone Dose Pack See Taper PO DIRECTED 01/28/17 01/28/17 History [Medrol Dose Pack] Allergies Allergy/AdvReac Type Severity Reaction Status Date / Time varenicline tartrate Allergy Intermediate Rash/Hives Verified 01/28/17 22:10 [From Chantix] ampicillin Allergy Rash/Hives Verified 01/28/17 22:10 Physical Examination - Vital Signs Vital Signs: Vital Signs Temp Pulse Pulse Resp BP BP Pulse Ox 01/29/17 15:49 84 01/29/17 15:48 97.0 F L 83 16 121/74 98 01/29/17 15:36 84 01/29/17 15:35 88 16 01/29/17 11:43 96.3 F L 88 16 106/70 98 01/29/17 11:38 100 01/29/17 11:24 96 01/29/17 08:00 97.6 F 129 H 20 143/75 96 01/29/17 07:46 100 01/29/17 07:29 112 H 01/29/17 03:52 97.0 F L 91 18 132/81 100 01/29/17 01:58 107 H 18 01/29/17 01:23 97.5 F L 107 H 18 135/74 99 01/29/17 01:03 109 H 18 01/29/17 00:49 97.6 F 134 H 18 143/82 100 01/28/17 23:05 97.2 F L 103 H 18 153/84 100 01/28/17 22:15 122 H 18 176/86 99 01/28/17 22:07 97.0 F L 117 H 18 175/79 100 01/28/17 22:00 115 H 18 155/86 100 01/28/17 21:45 115 H 16 147/86 98 Intake and Output 01/29/17 01/29/17 01/29/17 06:59 14:59 22:59 Intake Total 500 420 240 Output Total 375 400 Balance 125 20 240 Intake: Intake, IV Titration 500 Amount Sodium Chloride 0.9% 1, 500 000 ml @ 100 mls/hr IV . Q10H STA Rx#:[id number] Oral 420 240 Output: Urine 375 400 Other: Voiding Method Urinal Urinal Urinal # Voids 0 0 Weight 50 kg - Constitutional General appearance: average body habitus - EENT EENT: PERRL - Respiratory Respiratory: lungs clear, normal breath sounds - Cardiovascular Cardiovascular: regular rate - Neurologic Cranial nerve examination: PERRL, EOMI, face symmetric, tongue midline Detailed motor examination: other (Left-sided weakness) - Psychiatric Psychiatric: mood/affect appropriate Results - Laboratory Findings CBC and BMP: 01/29/17 07:37 01/29/17 07:37 Abnormal Lab Findings: Abnormal Labs 01/28/17 01/28/17 01/28/17 21:42 21:42 21:42 WBC 14.0 H RBC Hgb 11.4 L Hct 38.3 L MCH 24.8 L MCHC 29.8 L RDW 18.6 H Neutrophils # 10.6 H PT 14.8 H INR 1.5 H Creatinine Total Bilirubin 0.1 L HDL Cholesterol 01/29/17 01/29/17 01/29/17 07:37 07:37 07:37 WBC RBC 4.07 L Hgb 10.2 L Hct 34.7 L MCH MCHC 29.5 L RDW 18.5 H Neutrophils # PT 15.3 H INR 1.6 H Creatinine 0.63 L Total Bilirubin HDL Cholesterol 01/29/17 07:37 WBC RBC Hgb Hct MCH MCHC RDW Neutrophils # PT INR Creatinine Total Bilirubin HDL Cholesterol 71 H Assessment and Plan (1) TIA (transient ischemic attack) Current Visit: Yes Status: Acute SNOMED Code(s): 411897978 (2) History of CVA (cerebrovascular accident) Current Visit: Yes Status: Acute SNOMED Code(s): 902303515 (3) History of seizures Current Visit: Yes Status: Acute SNOMED Code(s): 873059087 Plan: The patient is a 56-year-old man with history of recent right subcortical stroke and left hemiparesis. He has been on Coumadin. He was admitted to the hospital with increasing weakness on the left side which has improved. CT of the brain done in the emergency room showed old right-sided infarct. CTA of the neck was negative. There was evidence of right anterior cerebral artery occlusive disease. Interventional neurologist had been contacted in the emergency room and it was felt that the patient should stay on Coumadin.
--- NOTE | 2017-01-29 20:02 | HP ---
HISTORY AND PHYSICAL CHIEF COMPLAINT: A 56-year-old white male admitted with a recurrent stroke with left-sided weakness. He has a history of right carotid disease, right carotid endarterectomy. He had a previous stroke a month or 2 ago. He just got out of the rehab center about 2 weeks ago. His weakness has gotten worse. Unable to move his arm and leg last night. Currently today he state his arm and leg are slightly improved, maybe 50% back. He has had no difficulties with speech. He had an angiogram last night that showed some anterior cerebral artery blockages. He has a history of coronary artery disease or congestive heart failure with a history of DVT and a PE in the past. Echogram 2017 showed normal function. PAST MEDICAL HISTORY: COPD, CVA, TIA, DVT, GI bleed, hypertension, osteoarthritis, pneumonia, pulmonary embolism, seizure disorder, pleurisy, bullous lung disease, seizures, perforated ulcer, chronic back pain, TIA, migraines, glaucoma, stroke as mentioned above. SURGICAL HISTORY: He has had a bowel resection, hernia repair, orthopedic surgery. He had a colostomy reversal, bilateral knee arthroscopy. He has a history of depression. Current everyday smoker. He has been smoking up to 10 cigarettes a day since he got out of the rehab center 2 to 3 weeks ago. He has history of chronic alcoholism, although he states he has only been drinking 1 beer a day with dinner. FAMILY HISTORY: Sister with skin cancer. Mother with cancer of the breast. Father with COPD. Brother with skin cancer. HOME MEDICINES: 1. Tegretol for seizures 200 mg b.i.d. 2. Latanoprost 1 drop in each eye daily. 3. Prozac 20 mg daily. 4. Lopressor 50 mg b.i.d. 5. [place] 10/325 every 6 hours p.r.n. 6. Coumadin 3 mg daily. 7. Norvasc 10 mg b.i.d. 8. Abilify 5 mg daily. 9. Pulmicort 0.5 mg nebulizer b.i.d. 10.DuoNeb q.i.d. updraft treatments. ALLERGIES: AND AMPICILLIN. PHYSICAL EXAM: Blood pressure is 130s to 140s over 70s to 80s. Pulse is in the low 100s. Respiratory rate 18 to 20, temp 97. CARDIOVASCULAR: S1, S2. LUNGS: Clear. GI: Soft. HEMATOLOGY: Negative Homans'. MUSCULOSKELETAL: He has 3/5 strength left arm, left leg; 4 to 5/5 in the right arm, right leg. Otherwise, cranial nerves appear to be intact. GI: Soft. PSYCH: Flat mood and affect. NEUROLOGIC: Alert and oriented x3. LABS: Reviewed. Angiogram was reviewed. ASSESSMENT: 1. Recurrent anterior cerebral artery stroke. 2. History of deep venous thrombosis and pulmonary embolism on Coumadin. 3. History of chronic obstructive pulmonary disease. 4. Alcoholism. 5. Nicotine addiction. 6. Acute4 on chronic anemia. Continue home medications. Await Neurology and Cardiology consult. Continue with seizure medication for seizures. Please see further orders. MMODL / IJN: [id number] /
[2017-01-29] MEDS: LATANOPROST 0.005% OPHTH DROPS 2.5 ML BTL BOTH EYES SCH (21:43)
[2017-01-30] MEDS: HYDROcodone/APAP 10-325MG 1 EACH TAB PO PRN ×4 (05:49→23:50)
[2017-01-30] MEDS: guaiFENesin SYRUP 100MG/5ML 200 MG/10 ML CUP PO PRN ×4 (05:53→23:49)
[2017-01-30] MEDS: BUDESONIDE 0.5 MG/2 ML NEBU INHALATION SCH ×2 (07:43→20:24)
[2017-01-30] MEDS: IPRATROPIUM-ALBUTEROL 3 ML NEB INHALATION PRN ×4 (07:43→20:24)
[2017-01-30] MEDS: carBAMazepine 200 MG TAB PO SCH ×2 (08:49→20:44)
[2017-01-30] MEDS: NICOTINE 14MG/24HR PATCH TRANSDERM SCH (08:49)
[2017-01-30] MEDS: METOPROLOL TARTRATE 50 MG TAB PO SCH ×2 (08:49→20:44)
[2017-01-30] MEDS: amLODIPine 10 MG TAB PO SCH ×2 (08:49→20:44)
[2017-01-30] MEDS: FLUoxetine HCL 20 MG CAP PO SCH (08:49)
[2017-01-30] MEDS: ARIPiprazole 5 MG TAB PO SCH (08:49)
[2017-01-30] MEDS: AZITHROMYCIN 500 MG TAB PO SCH (08:49)
--- NOTE | 2017-01-30 08:53 | P.CONS ---
History of Present Illness - Chief Complaint Gait disturbance - History of Present Illness I had the op to see patient for inpatient rehab consultation with regard to gait disturbance. He is known to me from recent stroke with lifting pierces and rehab admission November. He was discharged to home at standard cane level. He returns at this time with increase in left-sided weakness and numbness. Seen by Dr. Lakia Mcbride who diagnosed TIA. Seen by cardiology. Chest x-ray negative. Head CT demonstrates old right-sided infarcts as did angios CT. OT reports minimal assistance for upper dressing and maximal assistance for lower dressing and bathing. Moderate assistance for toileting. Speech therapy assessed swallow and communication. PT prescribed. Previous functional history as elicited from patient: 56-year-old right-handed white male who is lives in one floor home with 2 sons.'s in disability. Smokes but is now quitting. Denies alcohol. Describes independent with own cooking, laundry, standing shower and gait with standard cane. Does not drive. You are his regular doctor. Review of Systems Review of systems: ENT: Denies sneezes or discharge. Eyes: Denies discharge or photophobia. Cardiac: Denies chest pain or palpitation. Pulmonary: Chest pain or discomfort related to current cough. Gastrointestinal: Denies nausea, emesis, constipation, diarrhea. Genitourinary: Denies discharge or frequency. Musculoskeletal: Denies muscle or bone aches. Neurologic: Left-sided weakness and numbness that may have increased since November stroke. Endocrine: Denies shakes or sweats. Oncology: Denies cancers. Dermatologic: Denies rash, itching, pruritus. ALLERGY/immunology: Denies sneezes, rashes. Past Medical History Past Medical History: COPD, CVA/TIA, Deep Vein Thrombosis (DVT), Eye Disorder, GI Bleed, Hypertension, Osteoarthritis (OA), Pneumonia, Pulmonary Embolus (PE), Respiratory Disorder, Seizure Disorder Additional Past Medical History / Comment(s): Respiratory failure with O2 at 2l , tracheobronchitis, pleurisy, bollous lung disease, bilateral pulmonary embolus , last SEIZURE 2016, PERFORATED ULCER 2006 , R leg DVT, CHRONIC BACK PAIN, DDD/ DJD, TIA, MIGRAINES, bilateral TINNITUS, WAS TOLD 20 YEARS AGO HE HAD ALCOHOLIC HEPATITIS, bilateral GLAUCOMA, stroke 2017 History of Any Multi-Drug Resistant Organisms: None Reported Past Surgical History: Bowel Resection, Hernia Repair, Orthopedic Surgery Additional Past Surgical History / Comment(s): ulcer repair, EGD/COLONOSCOPY,, JOSIAH KNEE ARTHROSCOPY, abdominal hernia repair. 05/2016 bowel resection with colostomy Past Anesthesia/Blood Transfusion Reactions: Motion Sickness Past Psychological History: Depression Additional Psychological History / Comment(s): . Smoking Status: Current every day smoker Past Alcohol Use History: None Reported Additional Past Alcohol Use History / Comment(s): Pt states he started smoking as a teen and smoking 6-7 cigarettes daily but now is down to a few every other day. He states he has hx of alcoholism drinks one beer a day with dinner Past Drug Use History: None Reported - Past Family History Sister(s) Family Medical History: Cancer Additional Family Medical History / Comment(s): SKIN CANCER Mother Family Medical History: Cancer Additional Family Medical History / Comment(s): BREAST Father Additional Family Medical History / Comment(s): YELLOW JAUNDICE, MALARIA FROM WW2, EMPHYSEMA Brother(s) Family Medical History: Cancer Additional Family Medical History / Comment(s): SKIN Medications and Allergies Home Medications Medication Instructions Recorded Confirmed Type carBAMazepine [TEGretol] 200 mg PO BID 12/22/13 01/28/17 History Latanoprost [Xalatan 0.005%] 1 drop BOTH EYES HS 05/29/16 01/28/17 History FLUoxetine HCL [PROzac] 20 mg PO DAILY 01/19/17 01/28/17 History Metoprolol Tartrate [Lopressor] 50 mg PO BID 01/19/17 01/28/17 History HYDROcodone/APAP 10-325MG [[place] 1 tab PO Q6H PRN #48 tab 01/25/17 01/28/17 Rx 10-325] Warfarin [Coumadin] 3 mg PO DAILY@1800 tab 01/25/17 01/28/17 Rx amLODIPine [Norvasc] 10 mg PO BID #60 tablet 01/25/17 01/28/17 Rx ARIPiprazole [Abilify] 5 mg PO DAILY 01/28/17 01/28/17 History Azithromycin [Zithromax] 500 mg PO DAILY 01/28/17 01/28/17 History Budesonide [Pulmicort] 0.5 mg INHALATION RT-BID 01/28/17 01/28/17 History Ipratropium-Albuterol Nebulize 3 ml INHALATION RT-QID PRN 01/28/17 01/28/17 History [Duoneb 0.5 mg-3 mg/3 ml Soln] methylPREDNISolone Dose Pack See Taper PO DIRECTED 01/28/17 01/28/17 History [Medrol Dose Pack] Allergies Allergy/AdvReac Type Severity Reaction Status Date / Time varenicline tartrate Allergy Intermediate Rash/Hives Verified 01/28/17 22:10 [From Chantix] ampicillin Allergy Rash/Hives Verified 01/28/17 22:10 Physical Exam Vitals: Vital Signs Temp Pulse Pulse Resp BP Pulse Ox 01/30/17 07:55 78 01/30/17 07:43 72 01/30/17 04:00 96.4 F L 83 16 114/75 96 01/30/17 00:00 97.1 F L 94 16 116/74 98 01/29/17 20:00 98.4 F 87 16 111/66 98 01/29/17 19:37 80 01/29/17 19:18 80 01/29/17 15:49 84 01/29/17 15:48 97.0 F L 83 16 121/74 98 01/29/17 15:36 84 01/29/17 15:35 88 16 01/29/17 11:43 96.3 F L 88 16 106/70 98 01/29/17 11:38 100 01/29/17 11:24 96 Intake and Output 01/29/17 01/30/17 01/30/17 22:59 06:59 14:59 Intake Total 240 240 Output Total 100 850 Balance 140 -850 240 Intake: Oral 240 240 Output: Urine 100 850 Other: Voiding Method Urinal Urinal # Voids 1 Weight 49.7 kg Skin: Good color, texture, turgor. General: Medium build and comfortable appearance. Head: Normocephalic, atraumatic. Eyes: Symmetric. Pupils equal round. Ears: Symmetric. Hearing within normal limits. Mouth: Clear. Neck: Supple. Carotid without bruit. Cardiac: Regular rate and rhythm. Lungs: Clear anteriorly and posteriorly. Abdomen: Soft active nontender. Extremities: Normal tone. Neurological: Mental status: Alert, cooperative, pleasant. Cranial nerves: Symmetric facial tone and trapezius. Motor: Normal strength and isolation right side. Left arm in synergy as his leg. Elements of isolation in left leg and hip and knee. Sensation: Intact throughout. DTRs: Symmetric and equal throughout. Mobility: Sits and stands with assistance. Results CBC & Chem 7: 01/29/17 07:37 01/29/17 07:37 Labs: Abnormal Lab Results - Last 24 Hours (Table) 01/29/17 Range/Units 07:37 HDL Cholesterol 71 H (40-60) mg/dL Chest x-ray: report reviewed (Negative.) CT Scan - head: report reviewed (Head CT and Angio-Seal T demonstrated old right -sided infarcts, only.) Assessment and Plan (1) Acute right arterial ischemic stroke, MCA (middle cerebral artery) Current Visit: No Status: Acute Code(s): I63.511 - CEREB INFRC D/T UNSP OCCLS OR STENOS OF RIGHT MID CEREB ART SNOMED Code(s): 461044352 Plan: Impression: 1. Gait disturbance. 2. Right MCA infarct resultant left hemiparesthesias. 3. COPD exacerbation. 4. History seizure. 5. Osteoarthritis. 6. Hypertension. Comments and plan: At this time PT ordered and OT and BUS [employer] artery ongoing. Safety concerns noted. Patient however reports that current problem has been present since stroke of November and note that he had rehab admission. Insurance criteria would require new medical problem for readmission to the rehab unit such as recurrent stroke. We'll follow your workup closely with regard to this. With regard increase in deficits, this would be consistent with a new or recurrent stroke and could be obscured and head CT
--- NOTE | 2017-01-30 14:07 | P.PN ---
Subjective Progress Note Date: 01/30/17 This is a 56-year-old gentleman with past medical history significant for recent stroke with residual left-sided weakness and known right carotid disease , status post right carotid endarterectomy who presented to the hospital with numbness on the left side. He also felt that his weakness had progressively gotten worse. No issues with speach, no dizziness or lightheadedness. She had an echo performed in November that revealed normal left ventricular systolic function without any significant valvular abnormalities. Patient does have history of hypertension, COPD, prior DVT, pulmonary embolism, and seizure disorder. Patient was seen and evaluated by neurology who did not feel that the patient had a subsequent stroke. Recommendation is that the patient be transferred to rehab and arrangements are being made for this today. Objective - Vital Signs Vital signs: Vital Signs Temp 97.0 F L 01/30/17 11:31 Pulse 80 01/30/17 12:00 Resp 18 01/30/17 11:31 BP 116/70 01/30/17 11:31 Pulse Ox 98 01/30/17 11:31 Intake & Output 01/29/17 01/30/17 01/30/17 18:59 06:59 18:59 Intake Total 660 480 Output Total 400 950 200 Balance 260 -950 280 Weight 49.7 kg Intake: Oral 660 480 Output: Urine 400 950 200 Other: Voiding Method Urinal Urinal Urinal # Voids 0 1 # Bowel Movements 1 - Exam PHYSICAL EXAMINATION: HEENT: Head is atraumatic, normocephalic. Pupils equal, round. Neck is supple. There is no elevated jugular venous pressure. HEART EXAMINATION: Heart S1, S2 normal. No murmur or gallop heard. CHEST EXAMINATION: Lungs are clear to auscultation and precussion. No chest wall tenderness is noted on palpation or with deep breathing. ABDOMEN: Soft, nontender. Bowel sounds are heard. No organomegaly noted. EXTREMITIES: 2+ peripheral pulses with no evidence of peripheral edema and no calf tenderness noted. Positive left sided weakness NEUROLOGIC patient is awake, alert and oriented -3. . - Labs CBC & Chem 7: 01/29/17 07:37 01/29/17 07:37 Assessment and Plan Plan: Assessment and plan #1 left sided weakness in a patient with recent right subcortical stroke and left hemiparesis, on Coumadin for anticoagulation #2 history of seizures #3 COPD #4 history of PE and DVT #5 hypertension Plan From cardiology's perspective, we will follow this patient with you now on an as -needed basis. Neurology's perspective patient did not have a new event, therefore no JOSE is warranted at this time. Arrangements are being made for rehab. DNP note has been reviewed, I agree with a documented findings and plan of care. Patient was seen and examined.
[2017-01-30 14:43] LABS: Glucose,Whole Blood 82 mg/dL (75-99)
[2017-01-30] MEDS: WARFARIN 3 MG TAB PO SCH (17:46)
[2017-01-30] MEDS: LATANOPROST 0.005% OPHTH DROPS 2.5 ML BTL BOTH EYES SCH (20:47)
[2017-01-30] MEDS: GABAPENTIN 300 MG CAP PO SCH (20:51)
--- NOTE | 2017-01-30 21:49 | PN ---
PROGRESS NOTE SUBJECTIVE: A 56-year-old white male with CVA of the anterior cerebral artery. He has left hemiparesis, improved greatly and is to be discharged today, waiting for rehab placement. He is unable to ambulate. Neurology and cardiology consults are appreciated. VITAL SIGNS: Stable, afebrile. CARDIOVASCULAR: S1, S2. LUNGS: Decreased breath sounds x4. Scattered wheeze x4. GI: Soft. HEMATOLOGY: Negative Homans'. ASSESSMENT: 1. History of acute cerebrovascular accident, anterior cerebral artery. 2. Hypertension. 3. Chronic obstructive pulmonary disease. 4. Nicotine addiction. 5. Alcoholism. PLAN: [facility] with physical therapy and rehab placement. Await neurology and cardiology recommendations. MMODL / IJN: [id number] /
[2017-01-31] MEDS: HYDROcodone/APAP 10-325MG 1 EACH TAB PO PRN ×2 (05:54→19:39)
[2017-01-31] MEDS: guaiFENesin SYRUP 100MG/5ML 200 MG/10 ML CUP PO PRN ×3 (05:54→18:31)
[2017-01-31] MEDS: IPRATROPIUM-ALBUTEROL 3 ML NEB INHALATION PRN ×4 (08:05→20:15)
[2017-01-31] MEDS: BUDESONIDE 0.5 MG/2 ML NEBU INHALATION SCH ×2 (08:05→20:15)
[2017-01-31] MEDS: METOPROLOL TARTRATE 50 MG TAB PO SCH ×2 (08:27→20:17)
[2017-01-31] MEDS: NICOTINE 14MG/24HR PATCH TRANSDERM SCH (08:27)
[2017-01-31] MEDS: FLUoxetine HCL 20 MG CAP PO SCH (08:27)
[2017-01-31] MEDS: AZITHROMYCIN 500 MG TAB PO SCH (08:27)
[2017-01-31] MEDS: carBAMazepine 200 MG TAB PO SCH ×2 (08:27→20:17)
[2017-01-31] MEDS: ARIPiprazole 5 MG TAB PO SCH (08:28)
[2017-01-31] MEDS: amLODIPine 10 MG TAB PO SCH ×2 (08:28→20:17)
[2017-01-31] MEDS: WARFARIN 3 MG TAB PO SCH (17:23)
--- NOTE | 2017-01-31 18:05 | PN ---
PROGRESS NOTE SUBJECTIVE: This is a white male, with a new stroke of the anterior cerebral artery with left hemiparesis, has difficulty with mobilization of his left leg. Cardiovascular S1, S2. Lungs clear. GI soft. Hematology negative Homans. Psych fair mood and affect. Strength is 3/5. Left arm 2 to 3/5. Left leg difficult to move his leg. ASSESSMENT: 1. Cerebrovascular accident, anterior cerebral artery. Left hemiparesis, chronic obstructive pulmonary disease, nicotine addiction. 2. History of pulmonary embolism. Continue his Coumadin. Try to get therapeutic Coumadin levels on him. Physical therapy as mentioned above. Await [facility] placement. MMODL / IJN: [id number] /
[2017-01-31] MEDS: GABAPENTIN 300 MG CAP PO SCH (20:17)
[2017-01-31] MEDS: LATANOPROST 0.005% OPHTH DROPS 2.5 ML BTL BOTH EYES SCH (20:17)
[2017-02-01] MEDS: HYDROcodone/APAP 10-325MG 1 EACH TAB PO PRN ×3 (00:37→21:57)
[2017-02-01] MEDS: guaiFENesin SYRUP 100MG/5ML 200 MG/10 ML CUP PO PRN ×3 (00:37→21:57)
[2017-02-01 06:28] LABS: INR 1.4 (<1.2); Prothrombin Time 13.9 sec (9.0-12.0)
[2017-02-01] MEDS: amLODIPine 10 MG TAB PO SCH ×2 (08:03→20:23)
[2017-02-01] MEDS: carBAMazepine 200 MG TAB PO SCH ×2 (08:03→20:24)
[2017-02-01] MEDS: NICOTINE 14MG/24HR PATCH TRANSDERM SCH (08:03)
[2017-02-01] MEDS: METOPROLOL TARTRATE 50 MG TAB PO SCH ×2 (08:03→20:23)
[2017-02-01] MEDS: AZITHROMYCIN 500 MG TAB PO SCH (08:03)
[2017-02-01] MEDS: FLUoxetine HCL 20 MG CAP PO SCH (08:03)
[2017-02-01] MEDS: ARIPiprazole 5 MG TAB PO SCH (08:04)
[2017-02-01] MEDS: BUDESONIDE 0.5 MG/2 ML NEBU INHALATION SCH ×2 (08:32→20:18)
[2017-02-01] MEDS: IPRATROPIUM-ALBUTEROL 3 ML NEB INHALATION PRN ×2 (08:33→11:57)
[2017-02-01] MEDS: GABAPENTIN 300 MG CAP PO SCH ×2 (12:06→20:23)
[2017-02-01] MEDS: WARFARIN 3 MG TAB PO SCH (17:01)
[2017-02-01] MEDS: LATANOPROST 0.005% OPHTH DROPS 2.5 ML BTL BOTH EYES SCH (21:29)
--- NOTE | 2017-02-01 22:06 | PN ---
PROGRESS NOTE SUBJECTIVE: This is a 56-year-old white male admitted with CVA TIA of the left arm and left leg weakness. He is being placed into a knee replacement mobile physical therapy unit which he is requesting awaiting [facility] placement for him for discharge tomorrow. Cardiovascular S1-S2. Lungs clear. GI soft. Hematologic negative Homans. Psych fair mood and affect. ASSESSMENT: 1. Cerebrovascular accident. 2. Transient ischemic attack. 3. Left hemiparesis. 4. Hypertension. 5. Chronic obstructive pulmonary disease. Currently continue treatment as needed including PT, OT, and [facility] placement. Medications will be continued on Coumadin for blood thinner. MMODL / IJN: [id number] /
[2017-02-02] MEDS: HYDROcodone/APAP 10-325MG 1 EACH TAB PO PRN (06:54)
[2017-02-02] MEDS: BUDESONIDE 0.5 MG/2 ML NEBU INHALATION SCH ×2 (08:55→19:40)
[2017-02-02] MEDS: IPRATROPIUM-ALBUTEROL 3 ML NEB INHALATION PRN ×4 (08:55→19:40)
--- NOTE | 2017-02-02 09:33 | DS ---
DISCHARGE SUMMARY DISCHARGE MEDICATIONS: 1. Tylenol 3 one every 6 hours p.r.n. for pain. 2. DuoNeb 3 mL q.i.d. 3. Norvasc 10 mg b.i.d. 4. Abilify 5 mg q.h.s. 5. Azithromycin 500 mg daily for 5 more days. 6. Pulmicort 0.5 mg b.i.d. 7. Tegretol 200 b.i.d. 8. Prozac 20 mg daily. 9. Neurontin 300 mg b.i.d. 10.Robitussin 200 mg q.6 hours p.r.n. for cough. 11.Xalatan ophthalmologic drops in both eyes daily. 12.Lopressor 50 mg b.i.d. 13.Habitrol patch 14 mg daily. 14.Coumadin 3 mg daily. CONDITION: Stable. PROGNOSIS: Guarded. Ambulate as tolerated. DISCHARGE DIAGNOSES: 1. Acute anterior cerebral artery cerebrovascular accident. 2. Coumadin therapy. 3. Seizure therapy. 4. Chronic obstructive pulmonary disease. 5. Nicotine addiction. 6. Alcoholism. 7. Bronchitis. HOSPITAL COURSE OF EVENTS: This is a white male who was admitted to the hospital with a stroke, anterior cerebral artery stroke with left hemiparesis. He has got a knee surgery mobilizer, which is moving his left leg. His left foot remains numb. His left arm has received 50% of his function back. He is able to eat and drink okay. He is being treated for a stroke as mentioned above. Clinically, he is stabilized from medical standpoint. rehab at a rehab facility, which is being set up at [facility]. Nicotine patch will be continued and Tylenol 3 for pain every 6 hours p.r.n., Tegretol for seizures, Prozac for depression, Neurontin for restless legs syndrome and seizures, Norvasc for hypertension, DuoNeb for COPD and Pulmicort for COPD and warfarin will be 3 mg daily for stroke prophylaxis, which was agreed on by Neurology on discharge. Follow up with Dr. Noble in the rehab center. MMODL / IJN: [id number] /
[2017-02-02] MEDS: AZITHROMYCIN 500 MG TAB PO SCH (09:44)
[2017-02-02] MEDS: FLUoxetine HCL 20 MG CAP PO SCH (09:44)
[2017-02-02] MEDS: carBAMazepine 200 MG TAB PO SCH ×2 (09:44→21:07)
[2017-02-02] MEDS: GABAPENTIN 300 MG CAP PO SCH ×2 (09:45→21:06)
[2017-02-02] MEDS: METOPROLOL TARTRATE 50 MG TAB PO SCH ×2 (09:45→21:07)
[2017-02-02] MEDS: NICOTINE 14MG/24HR PATCH TRANSDERM SCH (09:45)
[2017-02-02] MEDS: ARIPiprazole 5 MG TAB PO SCH (09:45)
[2017-02-02] MEDS: Acetaminophen-Codeine 300-30mg TAB PO PRN ×3 (10:04→21:07)
[2017-02-02] MEDS: guaiFENesin SYRUP 100MG/5ML 200 MG/10 ML CUP PO PRN ×2 (10:04→21:07)
[2017-02-02] MEDS: amLODIPine 10 MG TAB PO SCH (12:30)
[2017-02-02] MEDS: WARFARIN 3 MG TAB PO SCH (17:29)
[2017-02-02] MEDS: LATANOPROST 0.005% OPHTH DROPS 2.5 ML BTL BOTH EYES SCH (21:07)
--- NOTE | 2017-02-02 22:09 | PN ---
PROGRESS NOTE SUBJECTIVE: 56-year-old white male with history of CVA, TIA, anterior cerebral artery infarction. He has got a knee CRP devices being used on his left leg for physical therapy. Awaiting rehab placement. Cardiovascular S1-S2. Lungs scattered wheeze. Hematology negative Homans. Psych fair mood and affect. Neurologic 3/5 strength times left leg, 3 and half out of 5 left arm. ASSESSMENT: 1. Acute anterior cerebral artery cerebrovascular accident. 2. Chronic obstructive pulmonary disease. 3. Nicotine addiction. 4. History of pulmonary embolus as a pulmonary embolism. 5. Status post bowel perforation with reverse colostomy. The patient will be sent to rehab tomorrow. Continue on Coumadin 3 mg a day and Neurontin was increased to 300 b.i.d. for restless legs syndrome. [place] was discontinued. Started on Tylenol 3 for pain. MMODL / IJN: [id number] /
[2017-02-03] MEDS: Acetaminophen-Codeine 300-30mg TAB PO PRN ×2 (04:22→11:16)
[2017-02-03] MEDS: guaiFENesin SYRUP 100MG/5ML 200 MG/10 ML CUP PO PRN ×2 (04:22→04:28)
--- NOTE | 2017-02-03 07:37 | DS ---
DISCHARGE SUMMARY DISCHARGE MEDICATIONS: Tylenol 3 one every 6 hours p.r.n. for pain, DuoNeb 3 mL q.i.d., Norvasc 5 mg daily. Abilify 5 mg daily. Zithromax 500 mg a day for 5 days. Pulmicort 0.5 mg b.i.d., Tegretol 200 mg b.i.d., Prozac 20 mg daily, Neurontin 300 mg b.i.d., Robitussin 200 mg q.6 hours p.r.n., Xalatan 1 drop both eyes daily, Lopressor 50 mg b.i.d., Habitrol patch 14 mg daily, Coumadin 3 mg daily. CONDITION: Stable. PROGNOSIS: Guarded. Ambulate as tolerated. Followup Dr. Noble at [facility]. HOSPITAL COURSE: This is a 56-year-old white male was admitted with anterior cerebral artery aneurysm with left hemiparesis. Was seen by Neurology, Cardiology for stroke. The patient was stabilized. His blood pressure became low. His Norvasc was cutback in dose. He is kept on his Coumadin 3 mg a day. PT, OT will be needed as an outpatient basis at the rehab center. He is unable to ambulate due to left leg weakness. He is using CRP knee machine for physical therapy on his left knee. He will need aggressive physical therapy as a rehab center. Other medications are reviewed. Please see further orders in the chart. Followup with Dr. Noble at [facility] [place]. MMREENAL / WINSOMEN: [id number] /
[2017-02-03] MEDS: IPRATROPIUM-ALBUTEROL 3 ML NEB INHALATION PRN ×2 (08:41→11:43)
[2017-02-03] MEDS: BUDESONIDE 0.5 MG/2 ML NEBU INHALATION SCH (08:41)
[2017-02-03] MEDS: AZITHROMYCIN 500 MG TAB PO SCH (08:48)
[2017-02-03] MEDS: GABAPENTIN 300 MG CAP PO SCH (08:48)
[2017-02-03] MEDS: NICOTINE 14MG/24HR PATCH TRANSDERM SCH (08:48)
[2017-02-03] MEDS: carBAMazepine 200 MG TAB PO SCH (08:49)
[2017-02-03] MEDS: FLUoxetine HCL 20 MG CAP PO SCH (08:49)
[2017-02-03] MEDS: METOPROLOL TARTRATE 50 MG TAB PO SCH (08:49)
[2017-02-03] MEDS: ARIPiprazole 5 MG TAB PO SCH (08:50)
[2017-02-03] MEDS ORDERED: amLODIPine 5 MG TAB PO SCH (09:00)
[2017-02-03 09:18] VITALS: RESP 18
[2017-02-03 10:09] VITALS: BMI 17.9
[2017-02-03 12:51] VITALS: BP 122/65; PULSE 89; TEMP 98.1
== END 2017-02-03 15:44 | DRG 65 ==
LOC: EC 21:37 → 6SEL 01-29 00:10
PROVIDERS: ADMIT Family Medicine; ATTEND Family Medicine
DX: I63.529 Cerebral infarction due to unspecified occlusion or stenosis of unspecified anterior cerebral artery (principal); I69.354 Hemiplegia and hemiparesis following cerebral infarction affecting left non-dominant side; I11.0 Hypertensive heart disease with heart failure; I50.9 Heart failure, unspecified; J44.1 Chronic obstructive pulmonary disease with (acute) exacerbation; M19.90 Unspecified osteoarthritis, unspecified site; D64.9 Anemia, unspecified; F10.20 Alcohol dependence, uncomplicated; F17.200 Nicotine dependence, unspecified, uncomplicated; F32.9 Major depressive disorder, single episode, unspecified; G25.81 Restless legs syndrome; G40.909 Epilepsy, unspecified, not intractable, without status epilepticus; H40.9 Unspecified glaucoma; I25.10 Atherosclerotic heart disease of native coronary artery without angina pectoris; Z96.659 Presence of unspecified artificial knee joint; Z88.1 Allergy status to other antibiotic agents; Z86.711 Personal history of pulmonary embolism; Z82.5 Family history of asthma and other chronic lower respiratory diseases; Z80.8 Family history of malignant neoplasm of other organs or systems; Z80.3 Family history of malignant neoplasm of breast; Z79.899 Other long term (current) drug therapy; Z79.01 Long term (current) use of anticoagulants; Z86.718 Personal history of other venous thrombosis and embolism; Z87.01 Personal history of pneumonia (recurrent)
CPT/HCPCS: 36415; 70450; 70496; 70498; 71020; 80048; 80053; 80061; 82306; 82550; 82553; 84484; 85025; 85027; 85610; 85730; 93005; 94640; 94760; 96360; 96361; 99285

== ENCOUNTER → 2017-05-09 | Outpatient (CLI) | payer MEDICARE | END | disposition home or self-care (01) | LOC: LABWHC1 09:11 | PROVIDERS: ATTEND Psychiatry & Neurology Neurology | DX: G40.209 Localization-related (focal) (partial) symptomatic epilepsy and epileptic syndromes with complex partial seizures, not intractable, without status epilepticus (principal) | CPT/HCPCS: 36415; 80156 ==

== ENCOUNTER → 2017-07-21 | Outpatient (CLI) | payer MEDICARE ==
[2017-07-21 12:09] LABS: INR 1.1 (<1.2); Prothrombin Time 10.6 sec (9.0-12.0)
== END ==
LOC: LABWHC1 11:36
PROVIDERS: ATTEND Dentist Oral and Maxillofacial Surgery
DX: D68.9 Coagulation defect, unspecified (principal)
CPT/HCPCS: 36415; 85610

== ENCOUNTER → 2017-09-15 | Outpatient (CLI) | payer MEDICARE ==
--- NOTE | 2017-09-15 15:41 | CT ---
EXAMINATION TYPE: CT brain wo con DATE OF EXAM: 09/15/2017 HISTORY: Headaches and weakness. CT DLP: 977.7 mGycm. Automated Exposure Control for Dose Reduction was Utilized. TECHNIQUE: CT scan of the head is performed without contrast. COMPARISON: CT head January 28, 2017. FINDINGS: There is no acute intracranial hemorrhage or midline shift identified. There is diffuse v entricular and sulcal prominence consistent with diffuse age-related cerebral atrophy. There is low- attenuation in the periventricular white matter consistent with chronic small vessel ischemic change. There is old infarct involving right frontal and parietal lobes in the MCA distribution more promin ent versus prior. The globes are intact and the visualized sinuses are clear on current study. IMPRESSION: No acute intracranial hemorrhage or midline shift. There is mild to moderate diffuse ag e-related cerebral atrophy and chronic small vessel ischemic change redemonstrated. Suspect further progression of old infarct right MCA distribution involving frontal and parietal lobes from prior CT.
== END | disposition home or self-care (01) ==
LOC: RADCTMAIN 14:42
PROVIDERS: ATTEND Psychiatry & Neurology Neurology
DX: G31.1 Senile degeneration of brain, not elsewhere classified (principal); I67.82 Cerebral ischemia; Z86.73 Personal history of transient ischemic attack (TIA), and cerebral infarction without residual deficits
CPT/HCPCS: 70450

== ENCOUNTER → 2017-12-04 | Outpatient (CLI) | payer MEDICARE ==
--- NOTE | 2017-12-04 09:03 | US ---
EXAMINATION TYPE: US prostate transrectal DATE OF EXAM: 12/04/2017 COMPARISON: NONE CLINICAL HISTORY: R97.2 Elevated PSA. This examination was performed using the transrectal probe. EXAM MEASUREMENTS: Gland Size: 5.6 x 5.4 x 3.3cm Volume: 52.25 Predicted PSA: 6.27 Actual PSA (if available):17.6 Heterogeneous gland, no obvious mass. Initial images the seminal vesicles are felt unremarkable. Prostate gland is enlarged in size with ce ntral calcifications present to the left of midline. No suspicious hypoechoic nodule clearly seen. IMPRESSION: Prostate gland is enlarged in size consistent with BPH, no suspicious nodule is noted. P SA is markedly elevated out of proportion to degree of predicted PSA and further investigation with u ltrasound guided transrectal random sampling by urologist is advised. Predicted PSA = volume x 0.12 ng/ml Calculated Volume = 0.5236 x L x W x H
== END | disposition home or self-care (01) ==
LOC: RADUSMAIN 07:14
PROVIDERS: ATTEND Family Medicine
DX: N40.0 Benign prostatic hyperplasia without lower urinary tract symptoms (principal); R97.20 Elevated prostate specific antigen [PSA]
CPT/HCPCS: 76872

== ENCOUNTER 2017-12-07 04:24 | Inpatient (IN) | payer MEDICARE ==
[2017-12-07] MEDS ORDERED: SODIUM CHLORIDE 0.9% 500 ML IV STA (04:37)
[2017-12-07] MEDS ORDERED: IPRATROPIUM-ALBUTEROL 3 ML NEB INHALATION STA ×2 (04:37→04:41)
--- NOTE | 2017-12-07 04:37 | ED ---
General Adult HPI - General Chief complaint: Shortness of Breath Stated complaint: JOANNE Time Seen by Provider: 12/07/17 04:36 Source: EMS Mode of arrival: EMS - History of Present Illness Initial comments: Jamil is a 56-year-old gentleman with extensive medical history presents the ED today via EMS for evaluation of progressively worsening shortness of breath and chest tightness. Patient reports that he has had shortness of breath since yesterday. He reports that despite using his breathing treatments at home has soreness of breath is progressively worsened. Patient reports that he was unable to sleep due to shortness of breath which prompted them to call EMS for transfer to the hospital. Patient reports that he is expecting tightness throughout his entire chest, wheezing and a sensation that he cannot catch his breath. Patient denies any fevers but reports he has felt chilled and generalized malaise, he describes feeling as though he has the flu. describes his chest pain as a tightness throughout his entire chest. Not exertional. Not associated with any diaphoresis or lightheadedness. - Related Data Home Medications Medication Instructions Recorded Confirmed carBAMazepine [TEGretol] 200 mg PO BID 12/22/13 12/07/17 FLUoxetine HCL [PROzac] 20 mg PO DAILY 01/19/17 12/07/17 Metoprolol Tartrate [Lopressor] 50 mg PO BID 01/19/17 12/07/17 Budesonide [Pulmicort] 0.5 mg INHALATION RT-BID 01/28/17 12/07/17 Ipratropium-Albuterol Nebulize 3 ml INHALATION RT-QID PRN 01/28/17 12/07/17 [Duoneb 0.5 mg-3 mg/3 ml Soln] Albuterol Nebulized [Ventolin 2.5 mg INHALATION RT-Q6H 12/07/17 12/07/17 Nebulized] Atorvastatin [Lipitor] 40 mg PO DAILY 12/07/17 12/07/17 Chlorpheniramine-Codeine 5 ml PO BID PRN 12/07/17 12/07/17 DULoxetine HCL [Cymbalta] 60 mg PO DAILY 12/07/17 12/07/17 Gabapentin [Neurontin] 300 mg PO BID 12/07/17 12/07/17 Hydrocodone/Acetaminophen [[place] 1 tab PO Q6H PRN 12/07/17 12/07/17 10-325] Warfarin Sodium [Coumadin] 4 mg PO HS 12/07/17 12/07/17 amLODIPine [Norvasc] 10 mg PO DAILY 12/07/17 12/07/17 Allergies Allergy/AdvReac Type Severity Reaction Status Date / Time varenicline tartrate Allergy Intermediate Rash/Hives Verified 12/07/17 07:51 [From Chantix] ampicillin Allergy Rash/Hives Verified 12/07/17 07:51 Review of Systems ROS Statement: Those systems with pertinent positive or pertinent negative responses have been documented in the HPI. ROS Other: All systems not noted in ROS Statement are negative. Past Medical History Past Medical History: COPD, CVA/TIA, Deep Vein Thrombosis (DVT), Eye Disorder, GI Bleed, Hypertension, Osteoarthritis (OA), Pneumonia, Pulmonary Embolus (PE), Respiratory Disorder, Seizure Disorder Additional Past Medical History / Comment(s): Respiratory failure with O2 at 2l , tracheobronchitis, pleurisy, bollous lung disease, bilateral pulmonary embolus , last SEIZURE 2015, PERFORATED ULCER 2005 , R leg DVT, CHRONIC BACK PAIN, DDD/ DJD, TIA, MIGRAINES, bilateral TINNITUS, WAS TOLD 20 YEARS AGO HE HAD ALCOHOLIC HEPATITIS, bilateral GLAUCOMA, stroke 2016 History of Any Multi-Drug Resistant Organisms: None Reported Past Surgical History: Bowel Resection, Hernia Repair, Orthopedic Surgery Additional Past Surgical History / Comment(s): ulcer repair, EGD/COLONOSCOPY,, JOSIAH KNEE ARTHROSCOPY, abdominal hernia repair. 05/2016 bowel resection with colostomy Past Anesthesia/Blood Transfusion Reactions: Motion Sickness Past Psychological History: No Psychological Hx Reported, Depression Smoking Status: Current every day smoker Past Alcohol Use History: Occasional Past Drug Use History: None Reported - Past Family History Sister(s) Family Medical History: Cancer Additional Family Medical History / Comment(s): SKIN CANCER Mother Family Medical History: Cancer Additional Family Medical History / Comment(s): BREAST Father Additional Family Medical History / Comment(s): YELLOW JAUNDICE, MALARIA FROM WW2, EMPHYSEMA Brother(s) Family Medical History: Cancer Additional Family Medical History / Comment(s): SKIN General Exam - General Exam Comments Initial Comments: GENERAL: Chronically ill-appearing, appears older than stated age Moderate respiratory distress HENT: Normocephalic, Atraumatic. Neck is soft and supple. No significant lymphadenopathy is noted. Oropharynx is clear. Moist mucous membranes. Neck has full range of motion without eliciting any pain. EYES: The sclera were anicteric and conjunctiva were pink and moist. Extraocular movements were intact and pupils were equal round and reactive to light. Eyelids were unremarkable. PULMONARY: Wheezing in all lung suarez, tachypnea CARDIOVASCULAR: There is a regular rate and rhythm without any murmurs gallops or rubs. ABDOMEN: Soft and nontender with normal bowel sounds. SKIN: Skin is clear with no lesions or rashes and otherwise unremarkable. NEUROLOGIC: Patient is alert and oriented x3. Cranial nerves II through XII are grossly intact. Motor and sensory are also intact. Normal speech, volume and content. Symmetrical smile. MUSCULOSKELETAL: Left lower extremity in a PFO brace LYMPHATICS: No significant lymphadenopathy is noted PSYCHIATRIC: Normal psychiatric evaluation. Limitations: no limitations Course Vital Signs 12/07/17 12/07/17 12/07/17 04:24 04:31 04:53 Temperature 97.6 F Pulse Rate 96 93 Respiratory 22 Rate Blood Pressure 213/105 O2 Sat by Pulse 98 Oximetry 12/07/17 12/07/17 12/07/17 05:16 05:55 06:44 Temperature Pulse Rate 106 H 96 107 H Respiratory 20 16 Rate Blood Pressure 178/91 158/91 O2 Sat by Pulse 95 97 Oximetry EKG Findings - EKG Comments: EKG Findings:: EKG obtained at 4:30 AM, rate is 99, rhythm is sinus, there is significant respiratory artifact. However noted to have normal axis, normal intervals, MO 144, QRS 74, QTC 462, para enlarged P waves suggestive of right sided atrial enlargement. There is no acute ST elevations or depressions no evidence of acute ischemia or infarction. Medical Decision Making - Medical Decision Making Patient with history of COPD, wheezing all lung suarez, increased work of breathing DuoNeb therapy was ordered and given with mild improvement in patient's workup breathing She has a history of DVT as well as PE and is noted to have a subtherapeutic INR. He is persistently tachycardic with low oxygen saturations. A CT pulmonary embolus him study was ordered. Negative for pulmonary embolus him. Again reaffirms patient's bullous emphysema. Patient care discussed with Dr. Fajardo who accepts admission for COPD exacerbation. DuoNeb's and steroids ordered. - Lab Data Result diagrams: 12/07/17 04:32 12/07/17 04:32 Lab Results 12/07/17 12/07/17 12/07/17 Range/Units 04:32 04:32 04:32 WBC 7.4 (3.8-10.6) k/uL RBC 4.88 (4.30-5.90) m/uL Hgb 15.3 (13.0-17.5) gm/dL Hct 49.7 (39.0-53.0) % MCV 101.8 H (80.0-100.0) fL MCH 31.3 (25.0-35.0) pg MCHC 30.8 L (31.0-37.0) g/dL RDW 13.6 (11.5-15.5) % Plt Count 296 (150-450) k/uL Neutrophils % 59 % Lymphocytes % 23 % Monocytes % 10 % Eosinophils % 4 % Basophils % 1 % Neutrophils # 4.4 (1.3-7.7) k/uL Lymphocytes # 1.7 (1.0-4.8) k/uL Monocytes # 0.7 (0-1.0) k/uL Eosinophils # 0.3 (0-0.7) k/uL Basophils # 0.0 (0-0.2) k/uL Macrocytosis Slight PT (9.0-12.0) sec INR (<1.2) APTT (22.0-30.0) sec D-Dimer (<0.60) mg/L FEU Sodium 141 (137-145) mmol/L Potassium 5.0 (3.5-5.1) mmol/L Chloride 100 (98-107) mmol/L Carbon Dioxide 31 H (22-30) mmol/L Anion Gap 10 mmol/L BUN 13 (9-20) mg/dL Creatinine 0.67 (0.66-1.25) mg/dL Est GFR (CKD-EPI)AfAm >90 (>60 ml/min/1.73 sqM) Est GFR (CKD-EPI)NonAf >90 (>60 ml/min/1.73 sqM) Glucose 107 H (74-99) mg/dL Calcium 9.2 (8.4-10.2) mg/dL Total Bilirubin 0.3 (0.2-1.3) mg/dL AST 31 (17-59) U/L ALT 31 (21-72) U/L Alkaline Phosphatase 81 (38-126) U/L Total Creatine Kinase 119 (55-170) U/L CK-MB (CK-2) 4.7 H (0.0-2.4) ng/mL CK-MB (CK-2) Rel Index 3.9 Troponin I <0.012 (0.000-0.034) ng/mL Total Protein 7.2 (6.3-8.2) g/dL Albumin 4.5 (3.5-5.0) g/dL 12/07/17 12/07/17 Range/Units 04:32 04:32 WBC (3.8-10.6) k/uL RBC (4.30-5.90) m/uL Hgb (13.0-17.5) gm/dL Hct (39.0-53.0) % MCV (80.0-100.0) fL MCH (25.0-35.0) pg MCHC (31.0-37.0) g/dL RDW (11.5-15.5) % Plt Count (150-450) k/uL Neutrophils % % Lymphocytes % % Monocytes % % Eosinophils % % Basophils % % Neutrophils # (1.3-7.7) k/uL Lymphocytes # (1.0-4.8) k/uL Monocytes # (0-1.0) k/uL Eosinophils # (0-0.7) k/uL Basophils # (0-0.2) k/uL Macrocytosis PT 14.7 H (9.0-12.0) sec INR 1.6 H (<1.2) APTT 32.4 H (22.0-30.0) sec D-Dimer 0.65 H (<0.60) mg/L FEU Sodium (137-145) mmol/L Potassium (3.5-5.1) mmol/L Chloride (98-107) mmol/L Carbon Dioxide (22-30) mmol/L Anion Gap mmol/L BUN (9-20) mg/dL Creatinine (0.66-1.25) mg/dL Est GFR (CKD-EPI)AfAm (>60 ml/min/1.73 sqM) Est GFR (CKD-EPI)NonAf (>60 ml/min/1.73 sqM) Glucose (74-99) mg/dL Calcium (8.4-10.2) mg/dL Total Bilirubin (0.2-1.3) mg/dL AST (17-59) U/L ALT (21-72) U/L Alkaline Phosphatase (38-126) U/L Total Creatine Kinase (55-170) U/L CK-MB (CK-2) (0.0-2.4) ng/mL CK-MB (CK-2) Rel Index Troponin I (0.000-0.034) ng/mL Total Protein (6.3-8.2) g/dL Albumin (3.5-5.0) g/dL Disposition Clinical Impression: COPD (chronic obstructive pulmonary disease) Disposition: ADMITTED IP TO THIS HOSP Referrals: Octaviano Noble MD [Primary Care Provider] - 1-2 days
[2017-12-07] MEDS ORDERED: methylPREDNISolone SOD SUCCI 125 MG/2 ML VIAL IV STA (04:41)
[2017-12-07 05:18] LABS: Basophils % (A) 1 %; Eosinophils # (A) 0.3 k/uL (0-0.7); Eosinophils % (A) 4 %; HCT 49.7 % (39.0-53.0); HGB 15.3 gm/dL (13.0-17.5); Lymphocytes # (A) 1.7 k/uL (1.0-4.8); Lymphocytes % (A) 23 %; MCH 31.3 pg (25.0-35.0); MCHC 30.8 g/dL (31.0-37.0); MCV 101.8 fL (80.0-100.0); Macrocytosis Slight; Mean Platelet Volume 6.5; Monocytes # (A) 0.7 k/uL (0-1.0); Monocytes % (A) 10 %; Neutrophils # (A) 4.4 k/uL (1.3-7.7); Neutrophils % (A) 59 %; Platelet Count 296 k/uL (150-450); RBC 4.88 m/uL (4.30-5.90); RDW 13.6 % (11.5-15.5); WBC 7.4 k/uL (3.8-10.6)
[2017-12-07 05:26] LABS: ALT 31 U/L (21-72); AST 31 U/L (17-59); Albumin 4.5 g/dL (3.5-5.0); Alkaline Phosphatase 81 U/L (38-126); Anion Gap 10 mmol/L; Blood Urea Nitrogen 13 mg/dL (9-20); Calcium 9.2 mg/dL (8.4-10.2); Carbon Dioxide 31 mmol/L (22-30); Chloride 100 mmol/L (98-107); Glucose 107 mg/dL (74-99); INR 1.6 (<1.2); Partial Thromboplastin Time 32.4 sec (22.0-30.0); Prothrombin Time 14.7 sec (9.0-12.0); Sodium 141 mmol/L (137-145); Total Bilirubin 0.3 mg/dL (0.2-1.3); Total Protein 7.2 g/dL (6.3-8.2)
--- NOTE | 2017-12-07 05:32 | XR ---
EXAMINATION TYPE: XR chest 2V DATE OF EXAM: 12/07/2017 COMPARISON: 01/28/2017 HISTORY: Difficulty breathing TECHNIQUE: Frontal and lateral views of the chest are obtained. FINDINGS: Heart and mediastinum are normal. Lungs are clear of infiltrate. There is no pleural effus ion. Bony thorax is intact. There are chest leads. IMPRESSION: No active cardiopulmonary disease. No change.
[2017-12-07 05:35] LABS: Creatine Kinase 119 U/L (55-170)
[2017-12-07 05:48] LABS: Creatine Kinase MB 4.7 ng/mL (0.0-2.4); Troponin I <0.012 ng/mL (0.000-0.034)
--- NOTE | 2017-12-07 08:01 | CT ---
EXAMINATION TYPE: CT chest angio for PE DATE OF EXAM: 12/07/2017 COMPARISON: Radiographs same day HISTORY: 56-year-old male Pain TECHNIQUE: Contiguous axial scanning of the chest performed with IV Contrast, patient injected with 1 00 mL of Isovue 370. Coronal/sagittal MIP reconstructions performed. CT DLP: 361 mGycm Automated exposure control for dose reduction was used. FINDINGS: Heart normal size without pericardial effusion. Coronary vessel calcifications are present in remarka ble for coronary artery disease. Aorta normal caliber with mild to moderate atherosclerotic arch calcifications and conventional arch vessel branching anatomy. Scattered nonenlarged mediastinal lymph nodes are demonstrated though borderline to mildly enlarged i n both rani measuring 1.2 cm on the right and 1.0 cm on the left, probably reactive/post inflammatory . Moderate bilateral gynecomastia incidentally noted. Borderline opacification of the pulmonary arterial system with respiratory motion in the lower lungs. No evidence for pulmonary embolus in the upper or mid lungs. No lobar embolus is seen. Segmental and more distal arterial branches of the lower lungs are nondiagnostic due to the degree of motion. Moderate centrilobular emphysema particularly in the upper lungs with diffuse bronchial wall thickeni ng. The bronchial wall thickening is greater in the lower lungs with some interval bronchial debris a nd a mucous/secretions particularly in the right lower lobe where mild tree-in-bud densities are pres ent. No nessa consolidation or pleural effusion. Visualized upper abdomen shows mild diffuse thickening of the adrenal glands without discrete nodular ity. Tiny hiatal hernia. Bones: No osseous destructive process. IMPRESSION: 1. BREATHING MOTION IN THE LOWER LUNGS LIMITING ASSESSMENT FOR PULMONARY EMBOLUS. NO LARGE CENTRAL OR LOBAR EMBOLUS AND NO PULMONARY EMBOLUS SEEN IN THE UPPER OR MID LUNGS. SEGMENTAL AND MORE DISTAL ART ERIAL BRANCHES OF THE LOWER LUNGS ARE NONDIAGNOSTIC AND EMBOLI IN THESE LOCATIONS CANNOT BE EXCLUDED ON THE BASIS OF THIS EXAM. 2. COPD WITH MODERATE EMPHYSEMA. 3. PROMINENT MUCOUS AND SECRETIONS IN THE RIGHT LOWER LOBE BRONCHI WITH ASSOCIATED TREE-IN-BUD OPACIT IES. FINDINGS COULD REPRESENT MILD ASPIRATION OR BRONCHIOLITIS INCLUDING INFECTIOUS BRONCHIOLITIS. CL INICALLY CORRELATE.
[2017-12-07] MEDS ORDERED: predniSONE 20 MG TAB PO SCH (09:00)
[2017-12-07] MEDS: ACETAMINOPHEN TAB 325 MG TAB PO PRN (09:07)
[2017-12-07] MEDS: IPRATROPIUM-ALBUTEROL 3 ML NEB INHALATION PRN ×3 (10:45→19:02)
[2017-12-07] MEDS ORDERED: TUSSIONEX PO PRN (14:49)
[2017-12-07] MEDS: HYDROcodone/APAP 10-325MG 1 EACH TAB PO PRN (16:10)
[2017-12-07] MEDS: amLODIPine 10 MG TAB PO SCH (16:11)
[2017-12-07] MEDS: FLUoxetine HCL 20 MG CAP PO SCH (16:11)
[2017-12-07] MEDS: DULoxetine HCL 60 MG CAPSULE.DR PO SCH (16:11)
[2017-12-07] MEDS: ATORVASTATIN 40 MG TAB PO SCH (16:12)
[2017-12-07] MEDS ORDERED: WARFARIN 5 MG TAB PO ONE (18:00)
--- NOTE | 2017-12-07 19:12 | HP ---
HISTORY AND PHYSICAL Jamil Tomlinson was seen, evaluated and examined while covering for Dr. Octaviano Noble. CHIEF COMPLAINT: Shortness of breath of several weeks duration, got worse in the last 2 days. HISTORY OF PRESENTING ILLNESS: Mr. Jamil Tomlinson is a 56-year-old with a very complex past medical historywith history of end-stage lung disease secondary to severe COPD, emphysema. The patient was doing fairly well until about 5 days ago to a week ago, started having increasing shortness of breath up to a point yesterday was very short of breath. Decided to come into the emergency department. The patient has congestion and cough, but mostly dry and nonproductive. With those problems patient has been admitted into the hospital. PAST MEDICAL HISTORY: Past medical history of severe COPD, history of stroke, deep venous thrombosis. History of GI bleed. Hypertension and hypertensive cardiovascular disease, pneumonia, pulmonary embolism, seizure disorder. The patient is on home oxygen. History of extensive bullous lung disease. ALLERGIES: INCLUDE AMPICILLIN AND CHANTIX. MEDICATIONS: At home include Tegretol 200 mg 2 times a day. Prozac 20 mg daily. Lopressor 50 mg daily, Pulmicort 2 times a day. DuoNeb unit dose 4 times a day. Lipitor 40 mg daily. Chlorpheniramine codeine is as needed. Cymbalta 60 mg daily, Neurontin 300 mg 3 times a day, hydrocodone with Tylenol as needed, Coumadin is 4 mg daily, amlodipine 10 mg daily. FAMILY HISTORY AND SOCIAL HISTORY: Extensive for smoking and nicotine use. Still smoking half to 1 pack per day. EXAMINATION: Most recent vitals include blood pressure is 130/97, respiratory rate 16, pulse 105, temp is 98, saturation 100%. HEENT atraumatic. Normocephalic, pharynx clear. Narrow pharyngeal opening is present. NECK: Supple without lymphadenopathy, jugular venous distention, or carotid bruit. Lungs bilateral good air entry is present with fine inspiratory, expiratory wheezing and rhonchi. HEART: Regular rate and rhythm, S1, S2 audible. ABDOMEN: Soft. No rebound, rigidity. Extremities +1 peripheral pulses. Neurological examination otherwise awake, alert. The CT scan of the chest revealed no evidence of pulmonary embolism seen. COPD like changes were seen. Extensive emphysema. Some secretion, in the mid point, right lower lobe, bronchi were seen in the tree on bud appearance suggestive of pneumonia or bronchitis. Chest x-ray COPD like changes. LABORATORY DATA: Reviewed. White count 7400, hemoglobin 15 and hematocrit 49, platelet count 296,000. PT/INR 47.7 and 1.6. Chemistry otherwise within normal limits. IMPRESSION: 1. Left lower lobe pneumonia. 2. Acute chronic obstructive pulmonary disease exacerbation. 3. Tracheobronchitis. 4. Pulmonary embolism with suboptimal PT AND INR. The patient probably needs a higher dose of Coumadin. 5. History of cerebrovascular accident with left hemiparesis. 6. Mood disorder/depression. PLAN: Includes bronchodilators along with IV steroids, breathing treatments, empiric antibiotics. We will increase the dose of Coumadin to 5 mg. Further recommendations pending. Plan of care as per clinical response of the patient. MMODL / IJN: [id number] /
[2017-12-07] MEDS: PROMETHAZ-COD 6.25-10 MG/5 ML 5 ML CUP PO PRN (20:14)
[2017-12-07] MEDS: DOXYCYCLINE 100 MG CAP PO SCH (20:16)
[2017-12-07] MEDS: carBAMazepine 200 MG TAB PO SCH (20:16)
[2017-12-07] MEDS: GABAPENTIN 300 MG CAP PO SCH (20:16)
[2017-12-07] MEDS: METOPROLOL TARTRATE 50 MG TAB PO SCH (20:16)
[2017-12-07 20:48] LABS: Glucose,Whole Blood 130 mg/dL (75-99)
[2017-12-07] MEDS ORDERED: WARFARIN 2 MG TAB PO SCH (21:00)
[2017-12-07] MEDS: INSULIN ASPART 100 UNIT/ML 1 ML 10 ML VIAL SQ SCH (21:00)
[2017-12-08] MEDS: methylPREDNISolone SOD SUCCI 125 MG/2 ML VIAL IV SCH ×4 (00:13→23:49)
[2017-12-08 04:19] LABS: Hemoglobin A1C 5.9 % (4.0-6.0)
[2017-12-08 07:18] LABS: Glucose,Whole Blood 129 mg/dL (75-99)
[2017-12-08] MEDS: INSULIN ASPART 100 UNIT/ML 1 ML 10 ML VIAL SQ SCH ×4 (07:37→21:25)
[2017-12-08] MEDS: amLODIPine 10 MG TAB PO SCH (08:10)
[2017-12-08] MEDS: carBAMazepine 200 MG TAB PO SCH ×2 (08:10→19:48)
[2017-12-08] MEDS: ATORVASTATIN 40 MG TAB PO SCH (08:10)
[2017-12-08] MEDS: DOXYCYCLINE 100 MG CAP PO SCH ×2 (08:10→19:48)
[2017-12-08] MEDS: DULoxetine HCL 60 MG CAPSULE.DR PO SCH (08:11)
[2017-12-08] MEDS: FLUoxetine HCL 20 MG CAP PO SCH (08:11)
[2017-12-08] MEDS: METOPROLOL TARTRATE 50 MG TAB PO SCH ×2 (08:11→19:48)
[2017-12-08] MEDS: GABAPENTIN 300 MG CAP PO SCH ×2 (08:11→19:48)
[2017-12-08] MEDS: HYDROcodone/APAP 10-325MG 1 EACH TAB PO PRN ×2 (08:20→17:37)
[2017-12-08 08:30] LABS: INR 1.3 (<1.2)
[2017-12-08] MEDS: IPRATROPIUM-ALBUTEROL 3 ML NEB INHALATION PRN ×4 (09:05→21:17)
--- NOTE | 2017-12-08 10:07 | P.CNPUL ---
History of Present Illness Consult date: 12/08/17 Reason for consult: dyspnea, cough, COPD, hypoxemia Chief complaint: Cough shortness of breath progressive for last 1 week History of present illness: Mr. 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 has not been feeling well for the last 5-6 days increased cuff congestion 2 days prior to coming into the hospital symptoms got worse decided to come into emergency department where he was admitted into the hospital patient is being treated with antibiotics breathing treatments as well as steroids feels slightly better today compared to yesterday Review of Systems All systems: negative Past Medical History Past Medical History: COPD, CVA/TIA, Deep Vein Thrombosis (DVT), Eye Disorder, GI Bleed, Hypertension, Liver Disease, Osteoarthritis (OA), Pneumonia, Pulmonary Embolus (PE), Respiratory Disorder, Seizure Disorder Additional Past Medical History / Comment(s): Respiratory failure with O2 at 2l at HS, tracheobronchitis, pleurisy, bollous lung disease, bilateral pulmonary embolus, last SEIZURE 2015, PERFORATED ULCER 2005 with surgical repair, R leg DVTS, CHRONIC BACK PAIN, DDD/DJD, 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, CVA with L sided weakness (pt states occured during caratid endartectomy), TIA, bowel obstruction with resection/colostomy and reversal of colostomy, MIGRAINES, bilateral TINNITUS, WAS TOLD 20 YEARS AGO HE HAD ALCOHOLIC HEPATITIS, bilateral GLAUCOMA History of Any Multi-Drug Resistant Organisms: None Reported Past Surgical History: Bowel Resection, Hernia Repair, Orthopedic Surgery Additional Past Surgical History / Comment(s): Gastric ulcer perforation with repair, EGD/COLONOSCOPY,, JOSIAH KNEE ARTHROSCOPY, abdominal hernia repair. 05/2016 bowel resection d/t obstruction with colostomy then reversal, PICC line, R caratid endartectomy. Past Anesthesia/Blood Transfusion Reactions: Motion Sickness Smoking Status: Current every day smoker - Past Family History Sister(s) Family Medical History: Cancer Additional Family Medical History / Comment(s): SKIN CANCER Mother Family Medical History: Cancer Additional Family Medical History / Comment(s): BREAST Father Additional Family Medical History / Comment(s): YELLOW JAUNDICE, MALARIA FROM WW2, EMPHYSEMA Brother(s) Family Medical History: Cancer Additional Family Medical History / Comment(s): SKIN Medications and Allergies Home Medications Medication Instructions Recorded Confirmed Type carBAMazepine [TEGretol] 200 mg PO BID 12/22/13 12/07/17 History FLUoxetine HCL [PROzac] 20 mg PO DAILY 01/19/17 12/07/17 History Metoprolol Tartrate [Lopressor] 50 mg PO BID 01/19/17 12/07/17 History Budesonide [Pulmicort] 0.5 mg INHALATION RT-BID 01/28/17 12/07/17 History Ipratropium-Albuterol Nebulize 3 ml INHALATION RT-QID PRN 01/28/17 12/07/17 History [Duoneb 0.5 mg-3 mg/3 ml Soln] Albuterol Nebulized [Ventolin 2.5 mg INHALATION RT-Q6H 12/07/17 12/07/17 History Nebulized] Atorvastatin [Lipitor] 40 mg PO DAILY 12/07/17 12/07/17 History Chlorpheniramine-Codeine 5 ml PO BID PRN 12/07/17 12/07/17 History DULoxetine HCL [Cymbalta] 60 mg PO DAILY 12/07/17 12/07/17 History Gabapentin [Neurontin] 300 mg PO BID 12/07/17 12/07/17 History Hydrocodone/Acetaminophen [Descanso 1 tab PO Q6H PRN 12/07/17 12/07/17 History 10-325] Warfarin Sodium [Coumadin] 4 mg PO HS 12/07/17 12/07/17 History amLODIPine [Norvasc] 10 mg PO DAILY 12/07/17 12/07/17 History Allergies Allergy/AdvReac Type Severity Reaction Status Date / Time varenicline tartrate Allergy Intermediate Rash/Hives Verified 12/07/17 07:51 [From Chantix] ampicillin Allergy Rash/Hives Verified 12/07/17 07:51 Physical Exam Vitals: Vital Signs Temp Pulse Pulse Resp BP BP Pulse Ox 12/08/17 09:05 104 H 18 12/08/17 05:49 97.1 F L 98 16 139/94 99 12/07/17 23:02 101 H 12/07/17 22:14 97.7 F 98 16 129/89 97 12/07/17 19:13 101 H 16 12/07/17 19:02 102 H 16 12/07/17 15:34 100 16 12/07/17 15:27 101 H 16 12/07/17 14:24 105 H 24 12/07/17 14:10 98.2 F 105 H 24 139/85 96 12/07/17 13:52 97.6 F 107 H 20 139/87 97 12/07/17 13:37 107 H 20 139/87 97 12/07/17 12:05 110 H 18 154/95 12/07/17 10:55 106 H 12/07/17 10:45 98 Intake and Output 12/07/17 12/08/17 12/08/17 22:59 06:59 14:59 Intake Total 700 Output Total 100 150 Balance 700 -100 -150 Intake: Oral 700 Output: Urine 100 150 Other: Voiding Method Urinal # Voids 1 - Constitutional General appearance: average body habitus, cooperative, disheveled, mild distress , thin - EENT Eyes: anicteric sclerae, EOMI, PERRLA, normal appearance ENT: normal oropharynx Ears: bilateral: normal - Neck Neck: normal ROM Carotids: bilateral: upstroke normal - Respiratory Respiratory: bilateral: diminished, rhonchi (On forced expiration), wheezing ( On forced expiration) - Cardiovascular Rhythm: regular Heart sounds: normal: S1, S2 - Gastrointestinal General gastrointestinal: decreased bowel sounds, soft - Integumentary Integumentary: normal turgor - Neurologic Neurologic: CNII-XII intact - Musculoskeletal Musculoskeletal: gait normal, generalized weakness, left sided weakness - Psychiatric Psychiatric: A&O x's 3, appropriate affect, intact judgment & insight Results - Laboratory Findings CBC and BMP: 12/07/17 04:32 12/07/17 04:32 PT/INR, D-dimer PT 12.0 sec (9.0-12.0) 12/08/17 07:37 INR 1.3 (<1.2) H 12/08/17 07:37 D-Dimer 0.65 mg/L FEU (<0.60) H 12/07/17 04:32 Abnormal lab findings: Abnormal Labs 12/07/17 12/07/17 12/07/17 04:32 04:32 04:32 MCV 101.8 H MCHC 30.8 L PT INR APTT D-Dimer Carbon Dioxide 31 H Glucose 107 H POC Glucose (mg/dL) CK-MB (CK-2) 4.7 H 12/07/17 12/07/17 12/07/17 04:32 04:32 20:45 MCV MCHC PT 14.7 H INR 1.6 H APTT 32.4 H D-Dimer 0.65 H Carbon Dioxide Glucose POC Glucose (mg/dL) 130 H CK-MB (CK-2) 12/08/17 12/08/17 07:04 07:37 MCV MCHC PT INR 1.3 H APTT D-Dimer Carbon Dioxide Glucose POC Glucose (mg/dL) 129 H CK-MB (CK-2) - Diagnostic Findings Chest x-ray: report reviewed, image reviewed CT scan - chest: report reviewed, image reviewed Assessment and Plan Assessment: Left lower lobe pneumonia likely community-acquired Acute COPD exacerbation Urine chronic hypoxic respirator failure Purulent tracheobronchitis Left hemiparesis with history of right-sided CVA Mood disorder depression Suboptimal PT/INR Plan: IV steroids Bronchodilator Go up on dose of Coumadin, aim INR around 2 Broad-spectrum antibiotics Increase activity as tolerated Peptic ulcer disease prophylaxis Monitor clinical course closely further recommendations pending plan of care as per clinical response of the patient Time with Patient: Greater than 30
[2017-12-08 11:17] LABS: Glucose,Whole Blood 202 mg/dL (75-99)
[2017-12-08 16:49] LABS: Glucose,Whole Blood 152 mg/dL (75-99)
[2017-12-08] MEDS ORDERED: WARFARIN 5 MG TAB PO ONE (18:00)
[2017-12-08] MEDS: PROMETHAZ-COD 6.25-10 MG/5 ML 5 ML CUP PO PRN (19:48)
[2017-12-08 20:46] LABS: Glucose,Whole Blood 167 mg/dL (75-99)
--- NOTE | 2017-12-08 23:58 | PN ---
PROGRESS NOTE SUBJECTIVE: This 56-year-old white male with COPD exacerbation, status pulmonary fibrosis is still wheezing greatly. He was started on IV antibiotics, empiric steroids, updraft treatments. He is on IV antibiotics for possible tracheobronchitis versus pneumonia, DuoNeb updrafts, Vibramycin by mouth, IV Solu-Medrol 60 q.8 hours, cough syrup. Pulmonology has seen him, Dr. Fajardo consult. Please see further orders. He still wheezes x4 lung suarez. CARDIOVASCULAR: S1, S2. Vital signs reviewed. HEMATOLOGY: Negative Homans'. Temp 97, pulse 96, blood pressure 125/75, on 3L 98%. ASSESSMENT: 1. Chronic obstructive pulmonary disease exacerbation, tracheobronchitis. 2. Acute hypoxemic respiratory distress. Please see further orders. Continue with IV steroids, IV antibiotics, updraft. MMODL / WINSOMEN: [id number] /
[2017-12-09] MEDS: ACETAMINOPHEN TAB 325 MG TAB PO PRN (05:56)
[2017-12-09] MEDS: IPRATROPIUM-ALBUTEROL 3 ML NEB INHALATION PRN ×4 (06:58→19:46)
[2017-12-09] MEDS: INSULIN ASPART 100 UNIT/ML 1 ML 10 ML VIAL SQ SCH ×4 (08:09→21:23)
[2017-12-09] MEDS: methylPREDNISolone SOD SUCCI 125 MG/2 ML VIAL IV SCH ×2 (08:10→15:17)
[2017-12-09] MEDS: DOXYCYCLINE 100 MG CAP PO SCH ×2 (08:11→19:48)
[2017-12-09] MEDS: carBAMazepine 200 MG TAB PO SCH ×2 (08:11→19:48)
[2017-12-09] MEDS: DULoxetine HCL 60 MG CAPSULE.DR PO SCH (08:11)
[2017-12-09] MEDS: ATORVASTATIN 40 MG TAB PO SCH (08:11)
[2017-12-09] MEDS: amLODIPine 10 MG TAB PO SCH (08:11)
[2017-12-09] MEDS: GABAPENTIN 300 MG CAP PO SCH ×2 (08:11→19:48)
[2017-12-09] MEDS: FLUoxetine HCL 20 MG CAP PO SCH (08:11)
[2017-12-09] MEDS: METOPROLOL TARTRATE 50 MG TAB PO SCH ×2 (08:12→20:40)
[2017-12-09] MEDS: HYDROcodone/APAP 10-325MG 1 EACH TAB PO PRN ×3 (08:12→22:07)
[2017-12-09 08:22] LABS: Glucose,Whole Blood 113 mg/dL (75-99)
[2017-12-09 10:51] LABS: INR 1.5 (<1.2); Prothrombin Time 13.6 sec (9.0-12.0)
[2017-12-09 11:42] LABS: Glucose,Whole Blood 132 mg/dL (75-99)
[2017-12-09] MEDS: methylPREDNISolone SOD SUCCI 40 MG/ML 1 ML VIAL IV SCH ×2 (15:30→23:47)
[2017-12-09 17:11] LABS: Glucose,Whole Blood 151 mg/dL (75-99)
[2017-12-09] MEDS ORDERED: WARFARIN 2 MG TAB PO ONE (18:00)
[2017-12-09] MEDS: PROMETHAZ-COD 6.25-10 MG/5 ML 5 ML CUP PO PRN (19:49)
[2017-12-09 21:16] LABS: Glucose,Whole Blood 161 mg/dL (75-99)
--- NOTE | 2017-12-09 23:47 | PN ---
PROGRESS NOTE SUBJECTIVE: A white male, age 56, with COPD exacerbation, tracheobronchitis on IV steroids. We are going to wean his steroids, continue with PT/OT, slow improvement. Lungs show scattered rhonchi and wheeze. CARDIOVASCULAR: S1, S2. GI: Soft. PSYCH: Fair mood and affect. ASSESSMENT: 1. Chronic obstructive pulmonary disease exacerbation. 2. Tracheobronchitis. 3. Coumadin therapy. 4. Diabetes mellitus. 5. Acute hypoxemic respiratory distress. Continue to wean steroids. Possible discharge home in the next 48 hours. MMODL / IJN: [id number] /
[2017-12-10] MEDS: PROMETHAZ-COD 6.25-10 MG/5 ML 5 ML CUP PO PRN ×2 (05:40→14:00)
[2017-12-10 07:53] LABS: Glucose,Whole Blood 122 mg/dL (75-99)
[2017-12-10] MEDS: INSULIN ASPART 100 UNIT/ML 1 ML 10 ML VIAL SQ SCH ×4 (08:30→21:34)
[2017-12-10] MEDS: DOXYCYCLINE 100 MG CAP PO SCH ×2 (09:09→20:35)
[2017-12-10] MEDS: ATORVASTATIN 40 MG TAB PO SCH (09:10)
[2017-12-10] MEDS: DULoxetine HCL 60 MG CAPSULE.DR PO SCH (09:10)
[2017-12-10] MEDS: methylPREDNISolone SOD SUCCI 40 MG/ML 1 ML VIAL IV SCH ×2 (09:10→15:39)
[2017-12-10] MEDS: carBAMazepine 200 MG TAB PO SCH ×2 (09:10→20:35)
[2017-12-10] MEDS: amLODIPine 10 MG TAB PO SCH (09:10)
[2017-12-10] MEDS: FLUoxetine HCL 20 MG CAP PO SCH (09:11)
[2017-12-10] MEDS: METOPROLOL TARTRATE 50 MG TAB PO SCH ×2 (09:11→20:35)
[2017-12-10] MEDS: GABAPENTIN 300 MG CAP PO SCH ×2 (09:11→20:35)
[2017-12-10] MEDS: HYDROcodone/APAP 10-325MG 1 EACH TAB PO PRN ×3 (09:13→21:36)
[2017-12-10 11:37] LABS: Glucose,Whole Blood 124 mg/dL (75-99)
[2017-12-10 11:53] LABS: INR 1.9 (<1.2); Prothrombin Time 17.6 sec (9.0-12.0)
[2017-12-10] MEDS ORDERED: ARTIFICIAL TEARS-HYPROMELLOSE DROPS 15 ML BTL BOTH EYES PRN (14:31)
--- NOTE | 2017-12-10 14:39 | P.PN ---
Subjective Progress Note Date: 12/09/17 (late entry note) Principal diagnosis: Acute COPD exacerbation, left lower lobe pneumonia, acute on chronic hypoxic respirator failure, purulent tracheobronchitis, left hemiparesis with a history of recent right-sided CVA, mood disorder depression, generalized weakness and medical debility 12/09/2017, patient seen eval examined during the rounds still very congested does able to get up and walk to the washroom becomes very short of breath denies any chest pain congested denies any hemoptysis sputum is thick tenacious and difficult to expectorate labs reviewed medications reviewed Mr. 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 has not been feeling well for the last 5-6 days increased cuff congestion 2 days prior to coming into the hospital symptoms got worse decided to come into emergency department where he was admitted into the hospital patient is being treated with antibiotics breathing treatments as well as steroids feels slightly better today compared to yesterday Objective - Vital Signs Vital signs: Vital Signs Temp 97.7 F 12/10/17 07:00 Pulse 80 12/10/17 07:00 Resp 16 12/10/17 07:00 BP 145/90 12/10/17 07:00 Pulse Ox 97 12/10/17 07:00 Intake & Output 12/09/17 12/10/17 12/10/17 18:59 06:59 18:59 Intake Total 500 Balance 500 Intake: Oral 500 Other: Voiding Method Toilet Toilet Urinal Urinal # Voids 4 2 4 - Exam - Constitutional General appearance: average body habitus, cooperative, disheveled, mild distress , thin - EENT Eyes: anicteric sclerae, EOMI, PERRLA, normal appearance ENT: normal oropharynx Ears: bilateral: normal - Neck Neck: normal ROM Carotids: bilateral: upstroke normal - Respiratory Respiratory: bilateral: diminished, rhonchi (On forced expiration), wheezing ( On forced expiration) - Cardiovascular Rhythm: regular Heart sounds: normal: S1, S2 - Gastrointestinal General gastrointestinal: decreased bowel sounds, soft - Integumentary Integumentary: normal turgor - Neurologic Neurologic: CNII-XII intact - Musculoskeletal Musculoskeletal: gait normal, generalized weakness, left sided weakness - Psychiatric Psychiatric: A&O x's 3, appropriate affect, intact judgment & insight - Labs CBC & Chem 7: 12/07/17 04:32 12/07/17 04:32 Labs: Abnormal Lab Results - Last 24 Hours (Table) 12/09/17 12/09/17 12/10/17 Range/Units 17:09 21:10 07:22 PT 17.6 H (9.0-12.0) sec INR 1.9 H (<1.2) POC Glucose (mg/dL) 151 H 161 H (75-99) mg/dL 12/10/17 12/10/17 Range/Units 07:27 11:35 PT (9.0-12.0) sec INR (<1.2) POC Glucose (mg/dL) 122 H 124 H (75-99) mg/dL Assessment and Plan Assessment: Left lower lobe pneumonia likely community-acquired Acute COPD exacerbation Urine chronic hypoxic respirator failure Purulent tracheobronchitis Left hemiparesis with history of right-sided CVA Mood disorder depression Suboptimal PT/INR Plan: IV steroids Bronchodilator Go up on dose of Coumadin, aim INR around 2 Broad-spectrum antibiotics Increase activity as tolerated Peptic ulcer disease prophylaxis Monitor clinical course closely further recommendations pending plan of care as per clinical response of the patient Time with Patient: Greater than 30
--- NOTE | 2017-12-10 14:42 | P.PN ---
Subjective Progress Note Date: 12/10/17 Principal diagnosis: Acute COPD exacerbation, left lower lobe pneumonia, acute on chronic hypoxic respirator failure, purulent tracheobronchitis, left hemiparesis with a history of recent right-sided CVA, mood disorder depression, generalized weakness and medical debility 12/10/2017, patient seen eval examined during the rounds clinically overall slightly improved as able to get up and move around but still very congested gets short of breath on activity and exertion cough is thick tenacious no hemoptysis present his labs and radiographic studies reviewed, patient remains on broad-spectrum antibiotics breathing treatment and steroids tolerating well, PT/INR is in therapeutic range now 12/09/2017, patient seen eval examined during the rounds still very congested does able to get up and walk to the washroom becomes very short of breath denies any chest pain congested denies any hemoptysis sputum is thick tenacious and difficult to expectorate labs reviewed medications reviewed Mr. 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 has not been feeling well for the last 5-6 days increased cuff congestion 2 days prior to coming into the hospital symptoms got worse decided to come into emergency department where he was admitted into the hospital patient is being treated with antibiotics breathing treatments as well as steroids feels slightly better today compared to yesterday Objective - Vital Signs Vital signs: Vital Signs Temp 97.7 F 12/10/17 07:00 Pulse 80 12/10/17 07:00 Resp 16 12/10/17 07:00 BP 145/90 12/10/17 07:00 Pulse Ox 97 12/10/17 07:00 Intake & Output 12/09/17 12/10/17 12/10/17 18:59 06:59 18:59 Intake Total 500 Balance 500 Intake: Oral 500 Other: Voiding Method Toilet Toilet Urinal Urinal # Voids 4 2 4 - Exam - Constitutional General appearance: average body habitus, cooperative, disheveled, mild distress , thin - EENT Eyes: anicteric sclerae, EOMI, PERRLA, normal appearance ENT: normal oropharynx Ears: bilateral: normal - Neck Neck: normal ROM Carotids: bilateral: upstroke normal - Respiratory Respiratory: bilateral: diminished, rhonchi (On forced expiration), wheezing ( On forced expiration) - Cardiovascular Rhythm: regular Heart sounds: normal: S1, S2 - Gastrointestinal General gastrointestinal: decreased bowel sounds, soft - Integumentary Integumentary: normal turgor - Neurologic Neurologic: CNII-XII intact - Musculoskeletal Musculoskeletal: gait normal, generalized weakness, left sided weakness - Psychiatric Psychiatric: A&O x's 3, appropriate affect, intact judgment & insight - Labs CBC & Chem 7: 12/07/17 04:32 12/07/17 04:32 Labs: Abnormal Lab Results - Last 24 Hours (Table) 12/09/17 12/09/17 12/10/17 Range/Units 17:09 21:10 07:22 PT 17.6 H (9.0-12.0) sec INR 1.9 H (<1.2) POC Glucose (mg/dL) 151 H 161 H (75-99) mg/dL 12/10/17 12/10/17 Range/Units 07:27 11:35 PT (9.0-12.0) sec INR (<1.2) POC Glucose (mg/dL) 122 H 124 H (75-99) mg/dL Assessment and Plan Assessment: Left lower lobe pneumonia likely community-acquired Acute COPD exacerbation Urine chronic hypoxic respirator failure Purulent tracheobronchitis Left hemiparesis with history of right-sided CVA Mood disorder depression Therapeutic PT/INR Plan: IV steroids Bronchodilator 18 on current dose of Coumadin, aim INR around 2 Broad-spectrum antibiotics Increase activity as tolerated Peptic ulcer disease prophylaxis Monitor clinical course closely further recommendations pending plan of care as per clinical response of the patient Time with Patient: Greater than 30
[2017-12-10] MEDS: IPRATROPIUM-ALBUTEROL 3 ML NEB INHALATION PRN ×2 (15:33→20:47)
[2017-12-10 17:05] LABS: Glucose,Whole Blood 97 mg/dL (75-99)
[2017-12-10] MEDS ORDERED: WARFARIN 2 MG TAB PO ONE (18:00)
[2017-12-10 21:22] LABS: Glucose,Whole Blood 118 mg/dL (75-99)
--- NOTE | 2017-12-10 23:34 | PN ---
PROGRESS NOTE SUBJECTIVE: A 56-year-old white male with COPD exacerbation and tracheobronchitis. His breathing is greatly improving. We are going to take him off IV Solu-Medrol, place him on oral prednisone and possibly discharge him home in the morning. He normally wears 2L oxygen. He has a history of PE and COPD. CARDIOVASCULAR: S1, S2. LUNGS: Transmitted upper sounds. HEMATOLOGY: Negative Homans'. PSYCH: Fair mood and affect. Lungs show decreased breath sounds x4. ASSESSMENT: 1. Chronic obstructive pulmonary disease exacerbation. 2. Tracheobronchitis. 3. Depression. 4. Dyslipidemia. 5. Chronic lumbar degenerative disc disease. 6. Neuropathy. Continue current treatments. Follow up in next 24-48 hours for discharge. MMODL / IJN: [id number] /
[2017-12-11 07:20] LABS: Glucose,Whole Blood 82 mg/dL (75-99)
[2017-12-11] MEDS: INSULIN ASPART 100 UNIT/ML 1 ML 10 ML VIAL SQ SCH ×4 (08:08→21:29)
[2017-12-11] MEDS: DULoxetine HCL 60 MG CAPSULE.DR PO SCH (08:10)
[2017-12-11] MEDS: DOXYCYCLINE 100 MG CAP PO SCH ×2 (08:10→20:02)
[2017-12-11] MEDS: predniSONE 20 MG TAB PO SCH (08:11)
[2017-12-11] MEDS: amLODIPine 10 MG TAB PO SCH (08:11)
[2017-12-11] MEDS: ATORVASTATIN 40 MG TAB PO SCH (08:11)
[2017-12-11] MEDS: METOPROLOL TARTRATE 50 MG TAB PO SCH ×2 (08:11→20:02)
[2017-12-11] MEDS: carBAMazepine 200 MG TAB PO SCH ×2 (08:11→20:03)
[2017-12-11] MEDS: GABAPENTIN 300 MG CAP PO SCH ×2 (08:11→20:02)
[2017-12-11] MEDS: FLUoxetine HCL 20 MG CAP PO SCH (08:11)
[2017-12-11] MEDS: HYDROcodone/APAP 10-325MG 1 EACH TAB PO PRN ×3 (08:13→22:37)
[2017-12-11 08:30] LABS: INR 1.9 (<1.2); Prothrombin Time 17.7 sec (9.0-12.0)
[2017-12-11] MEDS: IPRATROPIUM-ALBUTEROL 3 ML NEB INHALATION PRN ×3 (08:57→19:33)
[2017-12-11 12:02] LABS: Glucose,Whole Blood 117 mg/dL (75-99)
[2017-12-11 16:15] VITALS: RESP 18
--- NOTE | 2017-12-11 16:50 | P.PN ---
Subjective Progress Note Date: 12/11/17 Principal diagnosis: Acute COPD exacerbation, left lower lobe pneumonia, acute on chronic hypoxic respirator failure, purulent tracheobronchitis, left hemiparesis with a history of recent right-sided CVA, mood disorder depression, generalized weakness and medical debility 12/11/2017, patient seen eval examined during the rounds clinically patient has been doing slightly better severity of respiratory distress improved but still get short of breath on acuity and exertion cough is present but mostly dry, patient has been walking in the hallway, 12/10/2017, patient seen eval examined during the rounds clinically overall slightly improved as able to get up and move around but still very congested gets short of breath on activity and exertion cough is thick tenacious no hemoptysis present his labs and radiographic studies reviewed, patient remains on broad-spectrum antibiotics breathing treatment and steroids tolerating well, PT/INR is in therapeutic range now 12/09/2017, patient seen eval examined during the rounds still very congested does able to get up and walk to the washroom becomes very short of breath denies any chest pain congested denies any hemoptysis sputum is thick tenacious and difficult to expectorate labs reviewed medications reviewed Mr. 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 has not been feeling well for the last 5-6 days increased cuff congestion 2 days prior to coming into the hospital symptoms got worse decided to come into emergency department where he was admitted into the hospital patient is being treated with antibiotics breathing treatments as well as steroids feels slightly better today compared to yesterday Objective - Vital Signs Vital signs: Vital Signs Temp 98.1 F 12/11/17 15:25 Pulse 78 12/11/17 15:56 Resp 18 12/11/17 15:25 BP 135/84 12/11/17 15:25 Pulse Ox 93 L 12/11/17 15:25 Intake & Output 12/10/17 12/11/17 12/11/17 18:59 06:59 18:59 Intake Total 100 Output Total 225 Balance -125 Intake: Oral 100 Output: Urine 225 Other: Voiding Method Toilet Urinal # Voids 4 2 - Exam - Constitutional General appearance: average body habitus, cooperative, disheveled, mild distress , thin - EENT Eyes: anicteric sclerae, EOMI, PERRLA, normal appearance ENT: normal oropharynx Ears: bilateral: normal - Neck Neck: normal ROM Carotids: bilateral: upstroke normal - Respiratory Respiratory: bilateral: diminished, rhonchi (On forced expiration), wheezing ( On forced expiration) - Cardiovascular Rhythm: regular Heart sounds: normal: S1, S2 - Gastrointestinal General gastrointestinal: decreased bowel sounds, soft - Integumentary Integumentary: normal turgor - Neurologic Neurologic: CNII-XII intact - Musculoskeletal Musculoskeletal: gait normal, generalized weakness, left sided weakness - Psychiatric Psychiatric: A&O x's 3, appropriate affect, intact judgment & insight - Labs CBC & Chem 7: 12/07/17 04:32 12/07/17 04:32 Labs: Abnormal Lab Results - Last 24 Hours (Table) 12/10/17 12/11/17 12/11/17 Range/Units 21:21 08:04 11:37 PT 17.7 H (9.0-12.0) sec INR 1.9 H (<1.2) POC Glucose (mg/dL) 118 H 117 H (75-99) mg/dL Assessment and Plan Assessment: Left lower lobe pneumonia likely community-acquired Acute COPD exacerbation Urine chronic hypoxic respirator failure Purulent tracheobronchitis Left hemiparesis with history of right-sided CVA Mood disorder depression Therapeutic PT/INR Plan: IV steroids Bronchodilator 18 on current dose of Coumadin, aim INR around 2 Broad-spectrum antibiotics Increase activity as tolerated Peptic ulcer disease prophylaxis Monitor clinical course closely further recommendations pending plan of care as per clinical response of the patient Time with Patient: Greater than 30
[2017-12-11 16:56] LABS: Glucose,Whole Blood 126 mg/dL (75-99)
[2017-12-11] MEDS ORDERED: WARFARIN 5 MG TAB PO ONE (18:00)
[2017-12-11] MEDS: PROMETHAZ-COD 6.25-10 MG/5 ML 5 ML CUP PO PRN (20:09)
[2017-12-11 20:53] LABS: Glucose,Whole Blood 147 mg/dL (75-99)
[2017-12-12 06:22] VITALS: BP 138/91; TEMP 97.3
[2017-12-12] MEDS: IPRATROPIUM-ALBUTEROL 3 ML NEB INHALATION PRN ×2 (07:29→11:22)
[2017-12-12 07:48] LABS: Glucose,Whole Blood 82 mg/dL (75-99)
[2017-12-12] MEDS: INSULIN ASPART 100 UNIT/ML 1 ML 10 ML VIAL SQ SCH ×2 (07:57→12:49)
[2017-12-12] MEDS: ATORVASTATIN 40 MG TAB PO SCH (08:10)
[2017-12-12] MEDS: amLODIPine 10 MG TAB PO SCH (08:10)
[2017-12-12] MEDS: DOXYCYCLINE 100 MG CAP PO SCH (08:10)
[2017-12-12] MEDS: carBAMazepine 200 MG TAB PO SCH (08:10)
[2017-12-12] MEDS: predniSONE 20 MG TAB PO SCH (08:11)
[2017-12-12] MEDS: DULoxetine HCL 60 MG CAPSULE.DR PO SCH (08:11)
[2017-12-12] MEDS: GABAPENTIN 300 MG CAP PO SCH (08:11)
[2017-12-12] MEDS: METOPROLOL TARTRATE 50 MG TAB PO SCH (08:11)
[2017-12-12] MEDS: HYDROcodone/APAP 10-325MG 1 EACH TAB PO PRN (08:15)
[2017-12-12] MEDS: FLUoxetine HCL 20 MG CAP PO SCH (08:45)
[2017-12-12 09:08] LABS: INR 1.8 (<1.2); Prothrombin Time 16.2 sec (9.0-12.0)
--- NOTE | 2017-12-12 09:32 | PN ---
PROGRESS NOTE DATE OF SERVICE: 12/11/2017 SUBJECTIVE: 56-year-old white male admitted to hospital with COPD exacerbation, tracheobronchitis. He has been switched to oral prednisone and possibly be discharged home tomorrow. Cardiovascular S1-S2. Lungs transmitted upper airway sounds. Hematology negative Homans. Psych: Fair mood and affect. Neurologic: He appears alert, oriented, but extremely weak. ASSESSMENT: 1. Chronic obstructive pulmonary disease exacerbation. 2. Tracheobronchitis. 3. Dyslipidemia. 4. Hypertension. 5. Dehydration. 6. He is very congested, shortness of breath, thick sputum. 7. Left lower lobe pneumonia community-acquired with chronic obstructive pulmonary disease exacerbation, purulent tracheobronchitis. 8. History of cerebrovascular accident. 9. BOOP disorder. Possible discharge home soon. See how the patient feels today. Date of service 12/11/2017. MMCHACE / IJN: [id number] /
[2017-12-12 11:27] VITALS: PULSE 70
[2017-12-12] MEDS ORDERED: WARFARIN 7.5 MG TAB PO ONE (18:00)
--- NOTE | 2017-12-13 09:59 | P.PN ---
Subjective Progress Note Date: 12/12/17 (Late entry note) Principal diagnosis: Acute COPD exacerbation, left lower lobe pneumonia, acute on chronic hypoxic respirator failure, purulent tracheobronchitis, left hemiparesis with a history of recent right-sided CVA, mood disorder depression, generalized weakness and medical debility 12/12/2017, patient seen eval examined during the rounds clinically doing much better but still have cough congestion care plan discussed with the patient and primary service agree with discharge planning on oral steroids and antibiotics with follow-up in outpatient setting 12/11/2017, patient seen eval examined during the rounds clinically patient has been doing slightly better severity of respiratory distress improved but still get short of breath on acuity and exertion cough is present but mostly dry, patient has been walking in the hallway, 12/10/2017, patient seen eval examined during the rounds clinically overall slightly improved as able to get up and move around but still very congested gets short of breath on activity and exertion cough is thick tenacious no hemoptysis present his labs and radiographic studies reviewed, patient remains on broad-spectrum antibiotics breathing treatment and steroids tolerating well, PT/INR is in therapeutic range now 12/09/2017, patient seen eval examined during the rounds still very congested does able to get up and walk to the washroom becomes very short of breath denies any chest pain congested denies any hemoptysis sputum is thick tenacious and difficult to expectorate labs reviewed medications reviewed Mr. 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 has not been feeling well for the last 5-6 days increased cuff congestion 2 days prior to coming into the hospital symptoms got worse decided to come into emergency department where he was admitted into the hospital patient is being treated with antibiotics breathing treatments as well as steroids feels slightly better today compared to yesterday Objective - Vital Signs Vital signs: Vital Signs Temp 97.3 F L 12/12/17 06:22 Pulse 70 12/12/17 11:33 Resp 18 12/12/17 08:00 BP 138/91 12/12/17 06:22 Pulse Ox 97 12/12/17 06:22 Intake & Output 12/12/17 12/13/17 12/13/17 18:59 06:59 18:59 Other: # Voids 1 - Exam - Constitutional General appearance: average body habitus, cooperative, disheveled, mild distress , thin - EENT Eyes: anicteric sclerae, EOMI, PERRLA, normal appearance ENT: normal oropharynx Ears: bilateral: normal - Neck Neck: normal ROM Carotids: bilateral: upstroke normal - Respiratory Respiratory: bilateral: diminished, rhonchi (On forced expiration), wheezing ( On forced expiration) - Cardiovascular Rhythm: regular Heart sounds: normal: S1, S2 - Gastrointestinal General gastrointestinal: decreased bowel sounds, soft - Integumentary Integumentary: normal turgor - Neurologic Neurologic: CNII-XII intact - Musculoskeletal Musculoskeletal: gait normal, generalized weakness, left sided weakness - Psychiatric Psychiatric: A&O x's 3, appropriate affect, intact judgment & insight - Labs CBC & Chem 7: 12/07/17 04:32 12/07/17 04:32 Assessment and Plan Assessment: Left lower lobe pneumonia likely community-acquired Acute COPD exacerbation Urine chronic hypoxic respirator failure Purulent tracheobronchitis Left hemiparesis with history of right-sided CVA Mood disorder depression Therapeutic PT/INR Plan: Can be switched to oral prednisone Bronchodilator Continue Coumadin, aim INR around 2 Broad-spectrum antibiotics Increase activity as tolerated Peptic ulcer disease prophylaxis Monitor clinical course closely further recommendations pending plan of care as per clinical response of the patient Agree with discharge planning with follow-up in outpatient setting Time with Patient: Greater than 30
== END 2017-12-12 13:54 | disposition home health service (06) | DRG 193 ==
LOC: EC 04:24 → 4MS4W 08:08
PROVIDERS: ADMIT Family Medicine; ATTEND Family Medicine
DX: J18.9 Pneumonia, unspecified organism (principal); J96.21 Acute and chronic respiratory failure with hypoxia; I69.354 Hemiplegia and hemiparesis following cerebral infarction affecting left non-dominant side; J84.89 Other specified interstitial pulmonary diseases; E11.40 Type 2 diabetes mellitus with diabetic neuropathy, unspecified; J84.10 Pulmonary fibrosis, unspecified; J43.9 Emphysema, unspecified; I11.9 Hypertensive heart disease without heart failure; J41.1 Mucopurulent chronic bronchitis; E86.0 Dehydration; E78.5 Hyperlipidemia, unspecified; F32.9 Major depressive disorder, single episode, unspecified; M51.36 Other intervertebral disc degeneration, lumbar region; G89.29 Other chronic pain; M19.91 Primary osteoarthritis, unspecified site; G43.909 Migraine, unspecified, not intractable, without status migrainosus; G40.909 Epilepsy, unspecified, not intractable, without status epilepticus; H93.13 Tinnitus, bilateral; H40.9 Unspecified glaucoma; F17.210 Nicotine dependence, cigarettes, uncomplicated; Z71.6 Tobacco abuse counseling; Z99.81 Dependence on supplemental oxygen; Z79.01 Long term (current) use of anticoagulants; Z79.51 Long term (current) use of inhaled steroids; Z79.899 Other long term (current) drug therapy; Z72.89 Other problems related to lifestyle; Z86.718 Personal history of other venous thrombosis and embolism; Z86.711 Personal history of pulmonary embolism; Z87.01 Personal history of pneumonia (recurrent); Z87.19 Personal history of other diseases of the digestive system; Z90.49 Acquired absence of other specified parts of digestive tract; Z87.11 Personal history of peptic ulcer disease; Z88.0 Allergy status to penicillin; Z88.8 Allergy status to other drugs, medicaments and biological substances; Z80.8 Family history of malignant neoplasm of other organs or systems; Z80.3 Family history of malignant neoplasm of breast; Z83.1 Family history of other infectious and parasitic diseases; Z82.5 Family history of asthma and other chronic lower respiratory diseases
CPT/HCPCS: 36415; 71046; 71275; 80053; 82550; 82553; 83036; 84484; 85025; 85379; 85610; 85730; 93005; 94640; 94760; 96361; 96374; 99285

== ENCOUNTER → 2018-01-08 | Outpatient (CLI) | payer MEDICARE ==
[2018-01-08 15:38] LABS: C Reactive Protein 31.1 mg/L (<10.0); Carbamazepine (Tegretol) <3.0 ug/mL
== END | disposition home or self-care (01) ==
LOC: LABWHC1 14:17
PROVIDERS: ATTEND Psychiatry & Neurology Neurology
DX: G43.009 Migraine without aura, not intractable, without status migrainosus (principal); G40.209 Localization-related (focal) (partial) symptomatic epilepsy and epileptic syndromes with complex partial seizures, not intractable, without status epilepticus
CPT/HCPCS: 36415; 80156; 85652; 86140

== ENCOUNTER 2018-01-14 07:49 | Day surgery (SDC) | payer MEDICARE ==
[2018-01-14 08:29] LABS: Mean Platelet Volume 6.4; Platelet Count 381 k/uL (150-450)
[2018-01-14 08:34] LABS: Prothrombin Time 9.7 sec (9.0-12.0)
[2018-01-14 08:35] VITALS: RESP 16; TEMP 97.5
[2018-01-14] MEDS ORDERED: ALPRAZolam 0.5 MG TAB PO STA (08:36)
[2018-01-14 10:23] VITALS: BP 114/76; PULSE 74
--- NOTE | 2018-01-14 10:34 | US ---
Ultrasound-guided transrectal biopsy of the prostate gland. HISTORY: Elevated PSA. Informed consent was obtained and all the patient's questions were answered. Topical Xylocaine gel w as applied to the probe. The prostate gland was localized sonographically and 12 total samples were obtained with 2 samples obtained from each site. An 18-gauge biopsy device was utilized. Sites incl ude right base, left base, right mid gland, left mid gland, right apex and left apex. Samples were s ent to pathology further evaluation. The patient was monitored following the biopsy for approximatel y one hour. At the time of discharge patient's urine was clear and vitals were stable. IMPRESSION: Successful ultrasound guided core biopsy of the prostate gland. Pathology results are pe nding.
== END 2018-01-14 10:24 | disposition home or self-care (01) ==
LOC: RADPROMAIN 07:49
PROVIDERS: ATTEND Family Medicine
DX: N42.31 Prostatic intraepithelial neoplasia (principal)
CPT/HCPCS: 36415; 55700; 76942; 85049; 85610; 88305

== ENCOUNTER → 2018-03-05 | Outpatient (CLI) | payer MEDICARE | END | disposition home or self-care (01) | LOC: LABWHC1 15:34 | PROVIDERS: ATTEND Psychiatry & Neurology Neurology | DX: G40.209 Localization-related (focal) (partial) symptomatic epilepsy and epileptic syndromes with complex partial seizures, not intractable, without status epilepticus (principal) | CPT/HCPCS: 36415; 80156 ==

== ENCOUNTER → 2018-03-10 | Outpatient (CLI) | payer MEDICARE ==
--- NOTE | 2018-03-10 11:15 | XR ---
EXAMINATION TYPE: XR chest 2V DATE OF EXAM: 03/10/2018 COMPARISON: Chest x-ray and CT chest December 07, 2017. HISTORY: History of prostate cancer with hematuria. TECHNIQUE: Frontal and lateral views of the chest are obtained. FINDINGS: There is chronic emphysematous change without suspicious new focal air space opacity, pleu ral effusion, or pneumothorax seen. The cardiac silhouette size is within normal limits with atheros clerotic change in thoracic aorta. The osseous structures are intact. IMPRESSION: Chronic emphysematous change without acute pulmonary process.
--- NOTE | 2018-03-10 13:22 | CT ---
EXAMINATION TYPE: CT abdomen pelvis w con DATE OF EXAM: 03/10/2018 COMPARISON: 07/10/2016 HISTORY: Prostate cancer, hematuria. CT DLP: 491.2 mGycm Automated exposure control for dose reduction was used. TECHNIQUE: Helical acquisition of images was performed from the lung bases through the pelvis. CONTRAST: Performed with Oral Contrast and with IV Contrast, patient injected with 100 mL of Isovue M300. FINDINGS: LUNG BASES: No significant abnormality is appreciated. LIVER/GB: Unremarkable homogeneous enhancement of the hepatic parenchyma. No focal lesion identified. No cholelithiasis. PANCREAS: Homogeneous in enhancement. The upper margin of the spleen is limited in evaluation seconda ry to patient motion although better appreciated on delayed imaging without motion. SPLEEN: No significant abnormality is seen. ADRENALS: There is very mild thickening of the adrenal glands without focal nodularity likely represe nting mild adrenal gland hyperplasia. KIDNEYS: Punctate to small to accurately characterize left renal lesion is seen on series 7 image 26. No hydronephrosis or gross evidence of nephrolithiasis of either kidney. FREE AIR: No free air is visualized. REPRODUCTIVE ORGANS: The prostate gland is enlarged and heterogenous containing central zone calcific ations and hyperemia measuring 6.0 cm in transverse dimension. URINARY BLADDER: Urinary bladder is decompressed and suboptimally evaluated. ADENOPATHY: No greater than 1 cm short axis lymph nodes within the abdomen or pelvis.. OSSEOUS STRUCTURES: There is moderate femoral acetabular arthropathy. Mild degenerative changes of t he lumbar spine are noted. Straightening of the usual lumbar lordosis may be on the basis of muscular sprain/spasm or patient positioning. There is a punctate sclerotic focus of the right iliac bone on image 49 of low suspicion, unchanged from the prior. BOWEL: No dilated large or small bowel is noted. OTHER: Surgical change of the anterior abdominal wall is noted. There is a focal bulge at the superio r aspect with fascia not discretely identified suspicious for recurrent focal hernia with a wide neck measuring 4.5 cm and abutting loops of small bowel such as on axial series 3 image 36. There is severe atherosclerosis of the abdominal aorta and its branches with narrowing of the infrare nal abdominal aorta caliber approximately 50%. Distal opacification remains. IMPRESSION: 1. ENLARGED AND HETEROGENOUS PROSTATE GLAND WITH NO LOCAL OR RETROPERITONEAL ADENOPATHY. SOLITARY NON SPECIFIC PUNCTATE RIGHT PELVIC SCLEROTIC FOCUS IS OF LOW SUSPICION WITH STABILITY BACK TO 2017. 2. NO FINDINGS SUSPICIOUS FOR VISCERAL METASTASIS IN THE ABDOMEN OR PELVIS. 3. URINARY BLADDER IS INCOMPLETELY DISTENDED AND INCOMPLETELY EVALUATED IN THIS PATIENT WITH HEMATURI A. URINARY BLADDER ULTRASOUND, DIRECT VISUALIZATION OR CT UROGRAM COULD BE PERFORMED.
--- NOTE | 2018-03-10 15:30 | NM ---
EXAMINATION TYPE: NM bone scan whole body DATE OF EXAM: 03/10/2018 COMPARISON: Same day CT abdomen and pelvis study. HISTORY: Prostate cancer. Delayed whole-body scanning was performed following the injection of 24.8 mCi Tc 99m MDP. Images acq uired 3.5 hours post injection. Images are obtained of the whole body and anterior posterior projecti on as well as the thorax and abdomen in several projections FINDINGS: There is no suspicious scintigraphic evidence of abnormal radiotracer uptake to suggest metastatic di sease to the bone or other suspicious abnormality. Degenerative narrowing bilateral knee joints is pr esent. IMPRESSION: No scintigraphic evidence of metastatic disease to the bone.
== END | disposition home or self-care (01) ==
LOC: RADNMMAIN 10:38
PROVIDERS: ATTEND Urology
DX: N40.0 Benign prostatic hyperplasia without lower urinary tract symptoms (principal); J43.9 Emphysema, unspecified; N32.89 Other specified disorders of bladder; R31.9 Hematuria, unspecified; C61 Malignant neoplasm of prostate; Z88.0 Allergy status to penicillin; Z88.8 Allergy status to other drugs, medicaments and biological substances
CPT/HCPCS: 71046; 74177; 78306; A9503; Q9967

== ENCOUNTER 2018-04-13 03:18 | Inpatient (IN) | payer MEDICARE ==
[2018-04-13] MEDS ORDERED: RX INFO: IV CONTRAST WAS GIVEN 1 EACH MISC MISCELLANE PRN (03:40)
--- NOTE | 2018-04-13 03:46 | ED ---
General Adult HPI - General Chief complaint: Extremity Problem,Nontraumatic Stated complaint: L leg pain Source: patient Mode of arrival: EMS Limitations: no limitations - Related Data Home Medications Medication Instructions Recorded Confirmed carBAMazepine [TEGretol] 200 mg PO BID 12/22/13 04/13/18 FLUoxetine HCL [PROzac] 20 mg PO DAILY 01/19/17 04/13/18 Metoprolol Tartrate [Lopressor] 50 mg PO BID 01/19/17 04/13/18 Budesonide [Pulmicort] 0.5 mg INHALATION RT-BID 01/28/17 04/13/18 Ipratropium-Albuterol Nebulize 3 ml INHALATION RT-QID PRN 01/28/17 04/13/18 [Duoneb 0.5 mg-3 mg/3 ml Soln] Albuterol Nebulized [Ventolin 2.5 mg INHALATION RT-Q6H 12/07/17 04/13/18 Nebulized] DULoxetine HCL [Cymbalta] 60 mg PO DAILY 12/07/17 04/13/18 Gabapentin [Neurontin] 300 mg PO BID 12/07/17 04/13/18 Hydrocodone/Acetaminophen [Mchenry 1 tab PO Q6H PRN 12/07/17 04/13/18 10-325] Warfarin Sodium [Coumadin] 4 mg PO HS 12/07/17 04/13/18 amLODIPine [Norvasc] 10 mg PO DAILY 12/07/17 04/13/18 Meclizine [Antivert] 12.5 mg PO TID 01/06/18 04/13/18 Ciprofloxacin HCl [Cipro] 500 mg PO BID 01/14/18 04/13/18 Allergies Allergy/AdvReac Type Severity Reaction Status Date / Time varenicline tartrate Allergy Intermediate Rash/Hives Verified 01/14/18 08:30 [From Chantix] ampicillin Allergy Rash/Hives Verified 01/14/18 08:30 Review of Systems ROS Statement: Those systems with pertinent positive or pertinent negative responses have been documented in the HPI. ROS Other: All systems not noted in ROS Statement are negative. Past Medical History Past Medical History: CVA/TIA Additional Past Medical History / Comment(s): Respiratory failure with O2 at 2l at HS, tracheobronchitis, pleurisy, bollous lung disease, bilateral pulmonary embolus, last SEIZURE 2016, PERFORATED ULCER 2006 with surgical repair, R leg DVTS, CHRONIC BACK PAIN, DDD/DJD, 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, CVA with L sided weakness (pt states occured during caratid endartectomy), TIA, bowel obstruction with resection/colostomy and reversal of colostomy, MIGRAINES, bilateral TINNITUS, WAS TOLD 20 YEARS AGO HE HAD ALCOHOLIC HEPATITIS, bilateral GLAUCOMA History of Any Multi-Drug Resistant Organisms: VRE Date of last positivie culture/infection: 06/10/16 MDRO Source:: [id number] Past Surgical History: Bowel Resection, Hernia Repair, Orthopedic Surgery Additional Past Surgical History / Comment(s): Gastric ulcer perforation with repair, EGD/COLONOSCOPY,, JOSIAH KNEE ARTHROSCOPY, abdominal hernia repair. 05/2016 bowel resection d/t obstruction with colostomy then reversal, PICC line, R caratid endartectomy. Past Anesthesia/Blood Transfusion Reactions: Motion Sickness Past Psychological History: No Psychological Hx Reported, Depression Smoking Status: Current every day smoker Past Alcohol Use History: Occasional Past Drug Use History: None Reported - Past Family History Sister(s) Family Medical History: Cancer Additional Family Medical History / Comment(s): SKIN CANCER Mother Family Medical History: Cancer Additional Family Medical History / Comment(s): BREAST Father Additional Family Medical History / Comment(s): YELLOW JAUNDICE, MALARIA FROM WW2, EMPHYSEMA Brother(s) Family Medical History: Cancer Additional Family Medical History / Comment(s): SKIN General Exam Limitations: no limitations Course Vital Signs 04/13/18 03:21 Temperature 97.8 F Pulse Rate 87 Respiratory 20 Rate Blood Pressure 114/65 O2 Sat by Pulse 94 L Oximetry Medical Decision Making - Medical Decision Making Dictation was produced using [employer] dictation software. please excuse any grammatical, word or spelling errors. Chief Complaint: 57-year-old male past medical history of COPD, CVA/TIA, DVTs on anticoagulation presents with lower extremity paresthesias and pain History of Present Illness: 57-year-old male presents today with left lower extremity paresthesias and pain. States the symptoms began at 7 PM yesterday. Decided come today with the symptoms did not go away. Patient has history of stroke secondary to carotid artery stenosis on the right side. Patient states that he feels paresthesias to the left lower foot. Denies any history of peripheral vascular disease. Patient has a history of atrial fibrillation. Patient does take Coumadin. The ROS documented in this emergency department record has been reviewed and confirmed by me. Those systems with pertinent positive or negative responses have been documented in the HPI. All other systems are other negative and/or noncontributory. PHYSICAL EXAM: General Impression: Alert and oriented x3, not in acute distress HEENT: Normocephalic atraumatic, extra-ocular movements intact, pupils equal and reactive to light bilaterally, mucous membranes moist. Cardiovascular: Heart regular rate and rhythm, S1&S2 audible, no murmurs, rubs or gallops Chest: Lungs clear to auscultation bilaterally, no rhonchi, no wheeze, no rales Abdomen: Bowel sounds present, abdomen soft, non-tender, non-distended, no organomegaly Musculoskeletal: No palpable pulses in the left DP or posterior tibialis. There is some erythema and mottling to the left foot compared to the right. Rate does have a good view pulses and PT pulse Motor: Weakness with plantar and dorsiflexion of the left lower extremity which she reports is from old CVA Neurological: CN II-XII grossly intact, no focal motor or sensory deficits noted Skin: Intact with no visualized rashes ED course: 57-year-old male presents with chief complaint of left lower extremity paresthesias in pain. Vital signs upon arrival are within acceptable limits. No palpable pulse of the left PT and DP pulse. He does however have a left femoral pulse. An attempt was made to Doppler which there was no dopplerable pulse either. Ultrasound was used to try and identify arterial flow over the there is no anterior flow noted to the left lower extremity. There is clinical concern that patient is experiencing acute peripheral vascular occlusion. CT angiogram of the left lower extremities. Laboratory evaluation obtained. CBC, coag panel, metabolic panel is unremarkable. Mild lactic acidosis. CT angiogram of the left lower extremity was performed showing complete occlusion of the left SFA. Results collateral vessels of the thigh from the profunda femoris that reconstituted peroneal artery. No evidence of stenosis and tibial arteries. Discussed patient case with vascular surgery Dr. Riley. Who recommends patient be admitted to medicine. He would like to be on consult. Recommends heparin drip. There is a possibility of angiogram possible thrombectomy. Discussed patient case with Dr. Noble who will accepting this patient. EKG interpretation: Ventricular rate 89, normal sinus rhythm, HI interval 146, QRS 76, QTC 438. No HI prolongation, no QTC prolongation, no ST or T-wave changes noted. . Overall, this EKG is unremarkable - Lab Data Result diagrams: 04/13/18 03:25 04/13/18 03:25 Lab Results 04/13/18 04/13/18 04/13/18 Range/Units 03:25 03:25 03:25 WBC 5.9 (3.8-10.6) k/uL RBC 4.52 (4.30-5.90) m/uL Hgb 14.4 (13.0-17.5) gm/dL Hct 45.0 (39.0-53.0) % MCV 99.5 (80.0-100.0) fL MCH 31.9 (25.0-35.0) pg MCHC 32.1 (31.0-37.0) g/dL RDW 13.8 (11.5-15.5) % Plt Count 244 (150-450) k/uL Neutrophils % 64 % Lymphocytes % 24 % Monocytes % 5 % Eosinophils % 3 % Basophils % 1 % Neutrophils # 3.7 (1.3-7.7) k/uL Lymphocytes # 1.4 (1.0-4.8) k/uL Monocytes # 0.3 (0-1.0) k/uL Eosinophils # 0.2 (0-0.7) k/uL Basophils # 0.0 (0-0.2) k/uL PT 9.5 (9.0-12.0) sec INR 0.9 (<1.2) Sodium 139 (137-145) mmol/L Potassium 4.8 (3.5-5.1) mmol/L Chloride 105 (98-107) mmol/L Carbon Dioxide 25 (22-30) mmol/L Anion Gap 9 mmol/L BUN 16 (9-20) mg/dL Creatinine 0.71 (0.66-1.25) mg/dL Est GFR (CKD-EPI)AfAm >90 (>60 ml/min/1.73 sqM) Est GFR (CKD-EPI)NonAf >90 (>60 ml/min/1.73 sqM) Glucose 103 H (74-99) mg/dL Plasma Lactic Acid Glen (0.7-2.0) mmol/L Calcium 9.2 (8.4-10.2) mg/dL Magnesium 2.1 (1.6-2.3) mg/dL Creatine Kinase 109 (55-170) U/L 04/13/18 Range/Units 03:51 WBC (3.8-10.6) k/uL RBC (4.30-5.90) m/uL Hgb (13.0-17.5) gm/dL Hct (39.0-53.0) % MCV (80.0-100.0) fL MCH (25.0-35.0) pg MCHC (31.0-37.0) g/dL RDW (11.5-15.5) % Plt Count (150-450) k/uL Neutrophils % % Lymphocytes % % Monocytes % % Eosinophils % % Basophils % % Neutrophils # (1.3-7.7) k/uL Lymphocytes # (1.0-4.8) k/uL Monocytes # (0-1.0) k/uL Eosinophils # (0-0.7) k/uL Basophils # (0-0.2) k/uL PT (9.0-12.0) sec INR (<1.2) Sodium (137-145) mmol/L Potassium (3.5-5.1) mmol/L Chloride (98-107) mmol/L Carbon Dioxide (22-30) mmol/L Anion Gap mmol/L BUN (9-20) mg/dL Creatinine (0.66-1.25) mg/dL Est GFR (CKD-EPI)AfAm (>60 ml/min/1.73 sqM) Est GFR (CKD-EPI)NonAf (>60 ml/min/1.73 sqM) Glucose (74-99) mg/dL Plasma Lactic Acid Glen 0.8 (0.7-2.0) mmol/L Calcium (8.4-10.2) mg/dL Magnesium (1.6-2.3) mg/dL Creatine Kinase (55-170) U/L Disposition Clinical Impression: Ischemic leg Disposition: ADMITTED IP TO THIS [facility] Condition: Fair Referrals: Octaviano Noble MD [Primary Care Provider] - 1-2 days Decision Time: 05:16
[2018-04-13 03:54] LABS: Basophils % (A) 1 %; Eosinophils # (A) 0.2 k/uL (0-0.7); Eosinophils % (A) 3 %; HGB 14.4 gm/dL (13.0-17.5); Lymphocytes # (A) 1.4 k/uL (1.0-4.8); Lymphocytes % (A) 24 %; MCH 31.9 pg (25.0-35.0); MCHC 32.1 g/dL (31.0-37.0); MCV 99.5 fL (80.0-100.0); Mean Platelet Volume 6.8; Monocytes # (A) 0.3 k/uL (0-1.0); Monocytes % (A) 5 %; Neutrophils # (A) 3.7 k/uL (1.3-7.7); Neutrophils % (A) 64 %; Platelet Count 244 k/uL (150-450); RBC 4.52 m/uL (4.30-5.90); RDW 13.8 % (11.5-15.5); WBC 5.9 k/uL (3.8-10.6)
[2018-04-13 04:00] LABS: INR 0.9 (<1.2); Prothrombin Time 9.5 sec (9.0-12.0)
[2018-04-13 04:04] LABS: Anion Gap 9 mmol/L; Blood Urea Nitrogen 16 mg/dL (9-20); Calcium 9.2 mg/dL (8.4-10.2); Carbon Dioxide 25 mmol/L (22-30); Chloride 105 mmol/L (98-107); Creatine Kinase 109 U/L (55-170); Glucose 103 mg/dL (74-99); Magnesium 2.1 mg/dL (1.6-2.3); Potassium 4.8 mmol/L (3.5-5.1); Sodium 139 mmol/L (137-145)
[2018-04-13] MEDS ORDERED: SODIUM CHLORIDE 0.9% 500 ML IV STA (04:31)
--- NOTE | 2018-04-13 04:55 | CT ---
EXAMINATION TYPE: CT angio lower extremity LT DATE OF EXAM: 04/13/2018 4:34 AM COMPARISON: HISTORY: Left leg pain, lack of pulse CT DLP: 848.30 mGycm Automated exposure control for dose reduction was used. TECHNIQUE: Performed with IV Contrast, patient injected with 100 mL of Isovue 370. . FINDINGS: Multiple axial sections were obtained from the mid pelvis to the bottom of the left foot with intrave nous contrast. There are 3-D post processed images. There is patency of the left external and internal iliac artery. There is arterial flow in the profun da femoris artery. There is occlusion of the left femoral artery at its origin. There is no [place] arterial flow in the entire superficial femoral artery and the popliteal artery. There are collat eral vessels reconstituting the tibial artery below the knee. There is arterial flow in the anterior and posterior tibial arteries and the peroneal artery. There is arterial flow at the ankle in the ant erior and posterior tibial arteries. IMPRESSION: THE EXAM SHOWS COMPLETE OCCLUSION OF THE LEFT SUPERFICIAL FEMORAL ARTERY AT ITS ORIGIN. THERE IS SHEREEN ATERAL VESSELS IN THE THIGH FROM THE PROFUNDA FEMORIS ARTERY RECONSTITUTING THE PERONEAL ARTERY BELOW THE KNEE. NO EVIDENCE OF STENOSIS IN THE TIBIAL ARTERIES.
[2018-04-13] MEDS ORDERED: HEPARIN SODIUM,PORCINE 5,000 UNIT/ML 1 ML VIAL IV ONE (05:12)
[2018-04-13] MEDS ORDERED: NALOXONE 0.4 MG/ML 1 ML VIAL IV PRN (05:16)
[2018-04-13] MEDS: HEPARIN SOD,PORK IN 0.45% NACL 25,000 UNIT in 0.45% NACL 1 250ML.BAG IV SCH (05:22)
[2018-04-13] MEDS ORDERED: ACETAMINOPHEN TAB 325 MG TAB PO STA (05:25)
[2018-04-13] MEDS ORDERED: HYDROcodone/APAP 7.5-325MG 1 EACH TAB PO PRN ×2 (06:34→09:36)
[2018-04-13] MEDS ORDERED: HYDROcodone/APAP 10-325MG 1 EACH TAB PO PRN (07:03)
[2018-04-13] MEDS ORDERED: IPRATROPIUM-ALBUTEROL 3 ML NEB INHALATION PRN (07:03)
--- NOTE | 2018-04-13 07:56 | CT ---
EXAMINATION TYPE: CT brain wo con DATE OF EXAM: 04/13/2018 HISTORY: Lt sided weakness, Headache, history of CVA CT DLP: 1036 mGycm. Automated Exposure Control for Dose Reduction was Utilized. TECHNIQUE: CT scan of the head is performed without contrast. COMPARISON: CT brain September 15, 2017. FINDINGS: There is no acute intracranial hemorrhage or midline shift identified. There is diffuse v entricular and sulcal prominence consistent with diffuse age-related cerebral atrophy. There is low- attenuation in the periventricular white matter consistent with chronic small vessel ischemic change. There is old infarct high right frontoparietal region redemonstrated The globes are intact and the visualized sinuses are clear. IMPRESSION: No acute intracranial hemorrhage or midline shift. There is mild to moderate diffuse ag e-related cerebral atrophy and chronic small vessel ischemic change redemonstrated. Old infarct high right frontoparietal region again seen. No significant change from most recent prior. If clinical concern for acute stroke persists further investigation with MRI study may be warranted.
[2018-04-13] MEDS: BUDESONIDE 0.5 MG/2 ML NEBU INHALATION SCH ×2 (09:03→21:12)
[2018-04-13] MEDS: ALBUTEROL NEBULIZED 2.5 MG/3 ML INHALATION SCH ×3 (09:04→21:12)
[2018-04-13] MEDS: carBAMazepine 200 MG TAB PO SCH ×2 (09:38→21:45)
[2018-04-13] MEDS: GABAPENTIN 300 MG CAP PO SCH ×2 (09:38→21:46)
[2018-04-13] MEDS: amLODIPine 10 MG TAB PO SCH (09:38)
[2018-04-13] MEDS: MECLIZINE 12.5 MG TAB PO SCH ×3 (09:38→21:46)
[2018-04-13] MEDS: METOPROLOL TARTRATE 50 MG TAB PO SCH ×2 (09:38→21:45)
[2018-04-13] MEDS: TOPIRAMATE 25 MG TAB PO SCH (10:35)
[2018-04-13] MEDS: DULoxetine HCL 60 MG CAPSULE.DR PO SCH (10:35)
[2018-04-13] MEDS: FLUoxetine HCL 20 MG CAP PO SCH (10:35)
[2018-04-13] MEDS: SODIUM CHLORIDE 0.9% 1,000 ML IV SCH ×3 (10:46→20:32)
--- NOTE | 2018-04-13 17:20 | P.GSCN ---
History of Present Illness Consult date: 04/13/18 Reason for Consult: left lower extremity superficial femoral artery occlusion History of present illness: 57-year-old gentleman presented to the emergency department secondary to new onset numbness and pain of his left lower extremity. Patient states onset was a proximally 7 PM yesterday and stated since the numbness did not resolve he decided to go the emergency department. He does have a history of left-sided weakness secondary to a stroke in 2017 after carotid endarterectomy. He denies any history of peripheral vascular disease or pain with ambulation but states he has been in rehab since his stroke and does not ambulate for long periods of time. He currently denies any significant pain unless moving his foot which elicits pain in his calf on the left. He also does have a history of DVT bilaterally which she is on Coumadin chronically. He notes since heparin drip was initiated he is having minimal improvement but states it is not worsening. On evaluation in the emergency department they were unable to feel any pulses in the DP or PT as well as popliteal noted he had a strong femoral pulse. He did not have any Doppler signal at the DP, PT or popliteal vessels in the emergency department. His foot was cool to the touch. CT angiogram was ordered which demonstrated occlusion of the left superficial femoral artery at the takeoff with reconstitution at the tibioperoneal trunk. There was good runoff to the ankle. He was initiated on heparin drip and admitted to the hospital. Currently he denies any fevers, chills, chest pain or shortness of breath. Review of Systems 14 point review of systems was negative unless mentioned in the HPI past medical history. 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, CVA with L sided weakness (pt states occured during caratid endartectomy), TIA, bowel obstruction with resection/colostomy and reversal of colostomy, MIGRAINES, bilateral TINNITUS, WAS TOLD 20 YEARS AGO HE HAD ALCOHOLIC HEPATITIS, bilateral GLAUCOMA History of Any Multi-Drug Resistant Organisms: VRE Year Discovered:: 06/10/16 MDRO Source:: [id number] Past Surgical History: Bowel Resection, Hernia Repair, Orthopedic Surgery Additional Past Surgical History / Comment(s): Gastric ulcer perforation with repair, EGD/COLONOSCOPY,, JOSIAH KNEE ARTHROSCOPY, abdominal hernia repair. 05/2016 bowel resection d/t obstruction with colostomy then reversal, PICC line, R caratid endartectomy. Past Anesthesia/Blood Transfusion Reactions: Motion Sickness Smoking Status: Current every day smoker - Past Family History Sister(s) Family Medical History: Cancer Additional Family Medical History / Comment(s): SKIN CANCER Mother Family Medical History: Cancer Additional Family Medical History / Comment(s): BREAST Father Additional Family Medical History / Comment(s): YELLOW JAUNDICE, MALARIA FROM WW2, EMPHYSEMA Brother(s) Family Medical History: Cancer Additional Family Medical History / Comment(s): SKIN Medications and Allergies Home Medications Medication Instructions Recorded Confirmed Type carBAMazepine [TEGretol] 200 mg PO BID 12/22/13 04/13/18 History Metoprolol Tartrate [Lopressor] 50 mg PO BID 01/19/17 04/13/18 History Budesonide [Pulmicort] 0.5 mg INHALATION RT-BID 01/28/17 04/13/18 History Ipratropium-Albuterol Nebulize 3 ml INHALATION RT-QID PRN 01/28/17 04/13/18 History [Duoneb 0.5 mg-3 mg/3 ml Soln] Albuterol Nebulized [Ventolin 2.5 mg INHALATION RT-Q6H 12/07/17 04/13/18 History Nebulized] Gabapentin [Neurontin] 300 mg PO BID 12/07/17 04/13/18 History amLODIPine [Norvasc] 10 mg PO DAILY 12/07/17 04/13/18 History Meclizine [Antivert] 12.5 mg PO TID 01/06/18 04/13/18 History DULoxetine HCL [Cymbalta] 60 mg PO DAILY 04/13/18 04/13/18 History FLUoxetine HCL [PROzac] 20 mg PO DAILY 04/13/18 04/13/18 History HYDROcodone/APAP 7.5-325MG [[place] 1 tab PO BID PRN 04/13/18 04/13/18 History 7.5-325] Topiramate [Topamax] 50 mg PO DAILY 04/13/18 04/13/18 History Allergies Allergy/AdvReac Type Severity Reaction Status Date / Time varenicline tartrate Allergy Intermediate Rash/Hives Verified 04/13/18 09:22 [From Chantix] ampicillin Allergy Rash/Hives Verified 04/13/18 09:22 Surgical - Exam Vital Signs Temp Pulse Resp BP Pulse Ox 97.8 F 87 20 114/65 94 L 04/13/18 03:21 04/13/18 03:21 04/13/18 03:21 04/13/18 03:21 04/13/18 03:21 - General Left sided paralysis of the upper extremity and lower extremity noted with decrease active range of motion. well nourished, no distress - Eyes PERRL, normal ocular movement - ENT normal pinna - Neck no masses - Respiratory normal expansion, normal respiratory effort - Cardiovascular Rhythm: regular - Abdomen Multiple scars from previous surgical incisions. Abdomen: soft, non tender - Integumentary no rash - Neurologic Left-sided paralysis of the upper extremity. There is weakness of the lower extremity with plantar and dorsiflexion secondary to his old CVA. - Psychiatric oriented to time, oriented to person, oriented to place, speech is normal Palpable femoral pulses bilaterally. Right lower extremity with palpable popliteal, DP pulses. Left lower extremity with multiphasic signal noted at the popliteal artery. There is no palpable pulse at the popliteal, DP or PT and no signal noted at the DP or PT on the left. Capillary refill noted on the left lower extremity. There is minimal tenderness to palpation in the left calf. Patient has good active range of motion of bilateral lower extremities but left side is slightly diminished secondary to his previous stroke. Left lower extremity is warm to the knee with coolness noted from the calf to the foot. The right lower extremity foot is also cool to the touch. Results - Labs 04/13/18 03:25 04/13/18 03:25 Abnormal Lab Results - Last 24 Hours (Table) 04/13/18 04/13/18 Range/Units 03:25 11:56 APTT 52.9 H (22.0-30.0) sec Glucose 103 H (74-99) mg/dL Diabetes panel 04/13/18 Range/Units 03:25 Sodium 139 (137-145) mmol/L Potassium 4.8 (3.5-5.1) mmol/L Chloride 105 (98-107) mmol/L Carbon Dioxide 25 (22-30) mmol/L BUN 16 (9-20) mg/dL Creatinine 0.71 (0.66-1.25) mg/dL Glucose 103 H (74-99) mg/dL Calcium 9.2 (8.4-10.2) mg/dL Calcium panel 04/13/18 Range/Units 03:25 Calcium 9.2 (8.4-10.2) mg/dL Pituitary panel 04/13/18 Range/Units 03:25 Sodium 139 (137-145) mmol/L Potassium 4.8 (3.5-5.1) mmol/L Chloride 105 (98-107) mmol/L Carbon Dioxide 25 (22-30) mmol/L BUN 16 (9-20) mg/dL Creatinine 0.71 (0.66-1.25) mg/dL Glucose 103 H (74-99) mg/dL Calcium 9.2 (8.4-10.2) mg/dL Adrenal panel 04/13/18 Range/Units 03:25 Sodium 139 (137-145) mmol/L Potassium 4.8 (3.5-5.1) mmol/L Chloride 105 (98-107) mmol/L Carbon Dioxide 25 (22-30) mmol/L BUN 16 (9-20) mg/dL Creatinine 0.71 (0.66-1.25) mg/dL Glucose 103 H (74-99) mg/dL Calcium 9.2 (8.4-10.2) mg/dL - Imaging Additional studies: CTA of the abdomen and pelvis with runoff was reviewed demonstrating occlusion of the left superficial femoral artery with reconstitution of the below-knee tibioperoneal trunk. There is some appearance of chronic nature due to the amount of collaterals. Assessment and Plan (1) Ischemic leg Current Visit: Yes Status: Acute Code(s): I99.8 - OTHER DISORDER OF CIRCULATORY SYSTEM SNOMED Code(s): 327862047 Plan: Continue heparin drip at this time. There is some improvement of the left lower extremity and patient still has function. We did discuss options of thrombolytic lysis as well as the risk of thrombolytic use. If he has no improvement by tomorrow then we will discuss percutaneous intervention of the left lower extremity. Thank you for the consultation.
[2018-04-13] MEDS: HYDROcodone/APAP 7.5-325MG 1 EACH TAB PO PRN (17:52)
[2018-04-13] MEDS: HEPARIN SODIUM,PORCINE 5,000 UNIT/ML 1 ML VIAL IV PRN (19:59)
--- NOTE | 2018-04-13 22:37 | HP ---
HISTORY AND PHYSICAL CHIEF COMPLAINT: A 57-year-old white male with acute left lower extremity occlusion, numbness in his lower extremity, unable to move his foot. He has a history of a stroke with some left- sided weakness since 2017, but he woke up. He is unable to move his foot. Extreme numbness and tingling and cold foot which radiates up to his calf on his left leg. He is on Coumadin chronically due to history of DVT bilaterally and pulmonary embolism. He is on heparin drip since admission. Vascular consult saw him. CT angiogram showed occlusion of the left superficial femoral artery, possible reconstitution of the tibioperoneal trunk. 14-point review of systems negative except for mentioned in HPI. PAST MEDICAL HISTORY: As mentioned, bullous lung disease, COPD, bilateral pulmonary embolism, seizure, prior CVA with left-sided weakness 2017, history of alcoholism and hypertension. PAST SURGICAL HISTORY: Bowel resection, hernia repair, orthopedic surgery, bilateral knee arthroscopy, gastric ulcer perforation with repair, right carotid endarterectomy. SOCIAL HISTORY: Current everyday smoker. FAMILY HISTORY: Sister with cancer. HOME MEDS: Include: 1. DuoNeb and Pulmicort updrafts. 2. Neurontin. 3. Norvasc. 4. Antivert. 5. Cymbalta. 6. Prozac. 7. [place]. 8. Topamax. ALLERGIES: CHANTIX, AMPICILLIN. PHYSICAL EXAMINATION: Ophthalmology: Pupils equal, round, reactive to light and accommodation. ENT: External ear canals within normal limits. RESPIRATORY: Normal expansion. Normal respiratory effort. CARDIOVASCULAR: Regular rate and rhythm. ABDOMEN: Soft, nontender. INTEGUMENT: No rash or excoriations, bruising. NEUROLOGIC: Left-sided paralysis and weakness. LABS: Labs and CT scans were reviewed. ASSESSMENT: 1. Acute ischemic leg. 2. History of chronic obstructive pulmonary disease. 3. History of deep vein thrombosis. 4. History of pulmonary embolism. 5. History of hypertension. 6. History of prior stroke. Some improved to his left lower extremity. The patient still has some function, possible thrombolysis tomorrow by a vascular physician. Please see further. MMODL / IJN: [id number] /
[2018-04-14] MEDS: HEPARIN SODIUM,PORCINE 5,000 UNIT/ML 1 ML VIAL IV PRN (02:30)
[2018-04-14] MEDS: HYDROcodone/APAP 7.5-325MG 1 EACH TAB PO PRN ×5 (02:59→23:56)
[2018-04-14] MEDS: ALBUTEROL NEBULIZED 2.5 MG/3 ML INHALATION SCH ×4 (03:54→18:53)
[2018-04-14] MEDS: HEPARIN SOD,PORK IN 0.45% NACL 25,000 UNIT in 0.45% NACL 1 250ML.BAG IV SCH ×2 (05:10→13:57)
[2018-04-14] MEDS ORDERED: TOPIRAMATE 25 MG TAB PO SCH (09:00)
[2018-04-14] MEDS: METOPROLOL TARTRATE 50 MG TAB PO SCH ×2 (09:15→19:57)
[2018-04-14] MEDS: DULoxetine HCL 60 MG CAPSULE.DR PO SCH (09:15)
[2018-04-14] MEDS: MECLIZINE 12.5 MG TAB PO SCH ×3 (09:15→20:39)
[2018-04-14] MEDS: FLUoxetine HCL 20 MG CAP PO SCH (09:15)
[2018-04-14] MEDS: GABAPENTIN 300 MG CAP PO SCH ×2 (09:15→19:57)
[2018-04-14] MEDS: amLODIPine 10 MG TAB PO SCH (09:15)
[2018-04-14] MEDS: TOPIRAMATE 25 MG TAB PO SCH (09:16)
[2018-04-14] MEDS: carBAMazepine 200 MG TAB PO SCH ×2 (09:16→20:38)
--- NOTE | 2018-04-14 11:10 | P.PN ---
Subjective Progress Note Date: 04/14/18 Principal diagnosis: Acute left femoral occlusion The patient has had numbness of the left foot since his episode. There has been no change in his symptoms. He denies pain. Objective - Vital Signs Vital signs: Vital Signs Temp 97.0 F L 04/14/18 05:19 Pulse 76 04/14/18 05:19 Resp 18 04/14/18 08:00 BP 144/83 04/14/18 05:19 Pulse Ox 92 L 04/14/18 05:19 Intake & Output 04/13/18 04/14/18 04/14/18 18:59 06:59 18:59 Intake Total 2430.256 Output Total 400 220 Balance -400 2210.256 Intake: Intake, IV Titration 1410.256 Amount Heparin Sod,Pork in 0.45% 210.256 NaCl 25,000 unit In 0.45 % NaCl 1 250ml.bag @ 12 UNITS/KG/HR 8.16 mls/hr IV .Q24H EMILY Rx#: [id number] Sodium Chloride 0.9% 1, 1200 000 ml @ 100 mls/hr IV . Q10H EMILY Rx#:[id number] Oral 1020 Output: Urine 400 220 Other: Voiding Method Urinal Urinal Urinal # Voids 2 1 # Bowel Movements 1 - Exam The left leg is somewhat cooler than the right. There is good capillary refill. He can wiggle his toes. - Labs CBC & Chem 7: 04/13/18 03:25 04/13/18 03:25 Labs: Abnormal Lab Results - Last 24 Hours (Table) 04/13/18 04/13/18 04/14/18 Range/Units 11:56 18:14 01:33 APTT 52.9 H 46.0 H 40.5 H (22.0-30.0) sec 04/14/18 Range/Units 08:32 APTT 57.3 H (22.0-30.0) sec Assessment and Plan (1) Occlusion of left femoral artery Current Visit: Yes Status: Acute Code(s): I70.202 - UNSP ATHSCL CHITIMACHA ARTERIES OF EXTREMITIES, LEFT LEG SNOMED Code(s): 29386653022854915 (2) Ischemic leg Current Visit: Yes Status: Acute Code(s): I99.8 - OTHER DISORDER OF CIRCULATORY SYSTEM SNOMED Code(s): 970724220 Plan: I discussed with him the options. I discussed the case with Dr. Riley. Dr. Riley we will come up this afternoon and do an angiogram with possible thrombolytics. I discussed the potential for limb loss with the patient. Prognosis is guarded at this time.
[2018-04-14] MEDS: BUDESONIDE 0.5 MG/2 ML NEBU INHALATION SCH ×2 (11:24→18:53)
[2018-04-14] MEDS ORDERED: IV FLUID CONTINUATION 1,000 ML IV ONE (12:20)
[2018-04-14] MEDS ORDERED: LIDOCAINE 1% INJ 10MG/ML (20 ML MDV) ONE (12:43)
[2018-04-14] MEDS ORDERED: fentaNYL (PF) 50 MCG/ML 2 ML AMP ONE (12:45)
[2018-04-14] MEDS ORDERED: LIDOCAINE 1% INJ 10MG/ML (20 ML MDV) SQ ONE (12:47)
[2018-04-14] MEDS ORDERED: fentaNYL (PF) 50 MCG/ML 2 ML AMP IVP ONE (12:48)
[2018-04-14] MEDS ORDERED: MIDAZOLAM 2 MG/2 ML VIAL IVP ONE (12:48)
[2018-04-14] MEDS ORDERED: MORPHINE SULFATE 4 MG/ML SYRINGE ONE (13:13)
[2018-04-14] MEDS ORDERED: MORPHINE SULFATE 4 MG/ML SYRINGE IVP ONE (13:15)
[2018-04-14] MEDS ORDERED: HYDROmorphone 2 MG/ML 1 ML SYRINGE IVP ONE (13:24)
[2018-04-14] MEDS ORDERED: ALTEPLASE 2 MG VIAL (CATHFLO) IV ONE (13:45)
[2018-04-14] MEDS ORDERED: IOPAMIDOL-250 100ML BTL INTRAARTER ONE (13:57)
[2018-04-14] MEDS ORDERED: LIDOCAINE URO-JET JELLY 2% 5 ML KIT ONE (13:58)
[2018-04-14] MEDS ORDERED: SODIUM CHLORIDE 0.9% IV SCH (14:15)
[2018-04-14] MEDS ORDERED: ALTEPLASE IV SCH (14:15)
[2018-04-14 14:26] LABS: Glucose,Whole Blood 86 mg/dL (75-99)
[2018-04-14] MEDS: SODIUM CHLORIDE 0.9% 1,000 ML IV SCH ×3 (14:47→16:33)
[2018-04-14] MEDS: SODIUM CHLORIDE 0.9% 100 ML with ALTEPLASE 10 MG IV SCH ×4 (14:50→21:40)
[2018-04-14 15:27] LABS: Basophils % (A) 1 %; Eosinophils # (A) 0.2 k/uL (0-0.7); Eosinophils % (A) 4 %; HCT 45.4 % (39.0-53.0); HGB 13.9 gm/dL (13.0-17.5); Lymphocytes # (A) 1.1 k/uL (1.0-4.8); Lymphocytes % (A) 20 %; MCH 30.7 pg (25.0-35.0); MCHC 30.6 g/dL (31.0-37.0); MCV 100.2 fL (80.0-100.0); Mean Platelet Volume 6.5; Monocytes # (A) 0.3 k/uL (0-1.0); Monocytes % (A) 5 %; Neutrophils # (A) 3.9 k/uL (1.3-7.7); Neutrophils % (A) 68 %; Platelet Count 258 k/uL (150-450); RBC 4.53 m/uL (4.30-5.90); RDW 13.6 % (11.5-15.5); WBC 5.7 k/uL (3.8-10.6)
[2018-04-14 15:35] LABS: Blood Urea Nitrogen 8 mg/dL (9-20)
[2018-04-14 16:08] LABS: INR 0.9 (<1.2); Partial Thromboplastin Time 30.6 sec (22.0-30.0); Prothrombin Time 9.5 sec (9.0-12.0)
--- NOTE | 2018-04-14 19:37 | P.OP ---
Date of Procedure: 04/14/18 Preoperative Diagnosis: left lower extremity acute arterial occlusion with thrombosed left SFA and popliteal arteries Postoperative Diagnosis: same Procedure(s) Performed: Right common femoral artery access under ultrasound guidance. Left lower extremity selective angiogram with placement of unifuse thrombolytic catheter and initiation of thrombolysis. Moderate sedation x 1 hour Anesthesia: local, other (moderate sedation with versed x 1 hour) Surgeon: Michael Riley Estimated Blood Loss (ml): 5 Pathology: none sent Condition: stable Disposition: ICU Indications for Procedure: 57 year old male whom presented to the ER yesterday morning with complaints of left foot numbness and new onset pain. CTA was obtained demonstrating occlusion noted at the left superficial femoral artery extending to the popliteal with recollateralization at the below knee tibial peroneal trunk. He was initiated on heparin drip and followed the next 24 hours. Upon evaluation this morning he was still having mild pain with cool left foot and ABIs were obtained demonstrating 0.2 on the left with a normal EMMA on the right. Due to this it was determined that he would need an angiogram with possible intervention of his left superficial femoral artery. He presents to the [facility] for said procedure. Operative Findings: Thrombosed left superficial femoral artery extending to the popliteal artery. Description of Procedure: After written informed consent was obtained the patient all risks, benefits and complications were described the patient was brought to the [facility] and laid in a supine position. The area of the groins were prepped and draped in usual sterile fashion. Timeout was performed in normal fashion with all parties in agreement. Utilizing ultrasound the right common femoral artery was visualized shown to be patent without any significant disease. Patient was sedated with Versed and monitored with continuous EKG and O2 monitoring. Local anesthetic was then infused overlying the common femoral artery and utilizing a micropuncture needle and kit and a 4-Grenadian sheath was placed which was then upsized utilizing Seldinger technique to a 5-Grenadian sheath. 035 Glidewire was then placed into the aorta followed by an RBI catheter and the left common iliac artery was accessed in an up and over fashion. Wire was then placed down to the common femoral artery. Quick cross catheter was then guided over the guidewire just above the common femoral artery. An angiogram was obtained demonstrating complete occlusion of the SFA at the takeoff with a normal patent profundus. 035 Glidewire advantage was then placed followed by a 6-Grenadian up and over sheath. Through this sheath 035 Glidewire was then placed into the superficial femoral artery and utilizing the quick cross catheter the lesion was entered. The wire was then advanced without any difficulty down to the popliteal artery where the vessel reconstitution was noted upon angiogram. Once across the lesion angiogram was obtained of the distal aspect demonstrating three-vessel takeoff flow with what appeared to be distal occlusion or thrombus of the anterior tibial artery. An 035 glidewire advantage wire was once again placed across the lesion and a 90cm unifuse catheter with a 30cm infusion length was placed within the lesion. The sheath was then secured in place with 2-0 silk suture. Dressings were placed and TPA was initiated. The patient tolerated the procedure well and was sent to the ICU for continued infusion over night.
[2018-04-14] MEDS: METHYL SALICYLATE/MENTHOL CREAM 5 OZ TOPICAL PRN (21:15)
--- NOTE | 2018-04-15 01:02 | PN ---
PROGRESS NOTE ICU time: 30 minutes. SUBJECTIVE: 57-year-old white male admitted to the hospital. He has acute leg ischemia. He had a vascular port placed with tPA given down his left leg. His foot is dusky with decreased pulses at this time. Worsening duskiness compared to yesterday. Cardiovascular: S1-S2. Lungs: Wheezes x4. Hematology negative Homans. ASSESSMENT: 1. Acute leg ischemia, left leg, SVA arterial stenosis. 2. Chronic obstructive pulmonary disease. 3. Atrial fibrillation. 4. Diabetes. 5. Hypertension. 6. Chronic obstructive pulmonary disease. 7. Nicotine addiction. Continue current treatment with tPA of the left leg. Possible surgical intervention will be needed. ICU time 30 minutes. MMODL / IJN: [id number] /
[2018-04-15] MEDS: ALBUTEROL NEBULIZED 2.5 MG/3 ML INHALATION SCH ×4 (01:29→20:09)
[2018-04-15] MEDS: HYDROcodone/APAP 7.5-325MG 1 EACH TAB PO PRN ×4 (04:28→23:26)
[2018-04-15 05:11] LABS: HCT 44.2 % (39.0-53.0); HGB 13.5 gm/dL (13.0-17.5); Hypochromasia Slight; MCHC 30.6 g/dL (31.0-37.0); MCV 101.3 fL (80.0-100.0); Macrocytosis Slight; Mean Platelet Volume 6.6; Platelet Count 185 k/uL (150-450); RBC 4.36 m/uL (4.30-5.90); RDW 13.7 % (11.5-15.5); WBC 5.6 k/uL (3.8-10.6)
[2018-04-15 05:31] LABS: Anion Gap 8 mmol/L; Blood Urea Nitrogen 9 mg/dL (9-20); Calcium 8.6 mg/dL (8.4-10.2); Carbon Dioxide 23 mmol/L (22-30); Chloride 103 mmol/L (98-107); Glucose 103 mg/dL (74-99); Phosphorus 3.6 mg/dL (2.5-4.5); Potassium 4.4 mmol/L (3.5-5.1); Sodium 134 mmol/L (137-145)
[2018-04-15 06:31] LABS: Band Neutrophils % 3 %; Lymphocytes # (M) 0.73 k/uL (1.0-4.8); Monocytes # (M) 0.67 k/uL (0-1.0); Neutrophils % (M) 72 %; Nucleated Red Blood Cells 0 /100 WBC (0-0); Total Cells Counted 100
[2018-04-15] MEDS: BUDESONIDE 0.5 MG/2 ML NEBU INHALATION SCH ×2 (08:14→20:09)
[2018-04-15] MEDS: amLODIPine 10 MG TAB PO SCH (08:17)
[2018-04-15] MEDS: DULoxetine HCL 60 MG CAPSULE.DR PO SCH (08:17)
[2018-04-15] MEDS: MECLIZINE 12.5 MG TAB PO SCH ×3 (08:17→21:43)
[2018-04-15] MEDS: GABAPENTIN 300 MG CAP PO SCH ×2 (08:17→21:42)
[2018-04-15] MEDS: FLUoxetine HCL 20 MG CAP PO SCH (08:17)
[2018-04-15] MEDS: carBAMazepine 200 MG TAB PO SCH ×2 (08:18→21:42)
[2018-04-15] MEDS: METOPROLOL TARTRATE 50 MG TAB PO SCH ×2 (08:18→21:00)
[2018-04-15] MEDS: TOPIRAMATE 25 MG TAB PO SCH (08:19)
[2018-04-15] MEDS ORDERED: PANTOPRAZOLE 40 MG/10 ML VIAL IV SCH (09:00)
--- NOTE | 2018-04-15 09:01 | IR ---
EXAMINATION TYPE: IR angio abdominal w runoff DATE OF EXAM: 04/14/2018 COMPARISON: NONE HISTORY: Fluoroscopy time. Fluoroscopy was provided to the referring clinician. 9 minutes of fluoroscopy provided.
[2018-04-15] MEDS ORDERED: IV FLUID CONTINUATION 500 ML IV ONE (12:15)
[2018-04-15] MEDS ORDERED: MIDAZOLAM 2 MG/2 ML VIAL IV ONE (12:30)
[2018-04-15] MEDS ORDERED: fentaNYL (PF) 50 MCG/ML 2 ML AMP IV ONE (12:30)
[2018-04-15] MEDS ORDERED: HEPARIN SODIUM 1,000 UN/ML (10ML VL) IV ONE (13:02)
--- NOTE | 2018-04-15 13:52 | P.OP ---
Date of Procedure: 04/15/18 Preoperative Diagnosis: left lower extremity acute arterial thrombosis s/p thrombolysis Postoperative Diagnosis: 1. Left lower extremity acute arterial thrombosis status post thrombolytics 2. Left lower extremity superficial femoral artery with multiple areas of stenosis with worst area approaching 90%. 3. Successful left lower extremity thrombolysis with three-vessel runoff to the foot. Procedure(s) Performed: #1 left lower extremity selective angiogram of the SFA, popliteal and tibial arteries through existing sheath. #2 left lower extremity percutaneous transluminal balloon angioplasty with a 5 x 60 mm [place] balloon and 6 x 150 mm impact drug-eluting balloon. #3 left lower extremity percutaneous transluminal stent placement with 6 x 40 mm everFlex stent Implants: 6 x 40 mm everFlex stent Anesthesia: other (Moderate conscious sedation 50 mins) Surgeon: Michael Riley Estimated Blood Loss (ml): 5 Pathology: none sent Condition: stable Disposition: ICU Indications for Procedure: 57-year-old gentleman who presents back to the [facility] for reevaluation of his left lower extremity acute thrombosis status post thrombolytics. Patient states his foot has started to warm but is still having some pain with movement. Pre-procedural examination demonstrates palpable DP pulse and warm left lower extremity to the foot. Operative Findings: Left lower extremity superficial femoral, popliteal and tibioperoneal trunk thrombus is resolved with good brisk flow. There are areas of stenosis at the proximal mid and distal SFA. There is a complex appearing stenosis noted at the midportion of the SFA approximately 90%. Description of Procedure: After written informed consent was obtained the patient all risks benefits competitions were described patient is brought to the [facility] and laid in a supine position. The area overlying the existing sheath and catheter was prepped and draped in usual sterile fashion. Timeout was performed in normal fashion. Utilizing the existing sheath angiogram was obtained of the left lower extremity demonstrating good resolution of the existing thrombus from yesterday. There were 3 areas of stenosis noted with the mid SFA narrowing approaching 90%. Patient was administered heparin. Balloon angioplasty was performed first with a 5 x 60 mm [place] balloon with minimal wasting noted at the lesion. There was rebound stenosis noted once completed an angiogram was obtained. The area of question had the appearance of a focal dissection and was in close proximity to the distal SFA stenosis which was approximately 70% therefore a long 6 x 150 mm impact balloon was placed for approximately 3 minutes. Once completed and gram was obtained demonstrating resolved stenosis of the distal aspect of the SFA and no change to the area of question the mid SFA. At that time was determined to place a stent across the would appeared to be focal dissection. A 6 x 40 mm ever Flex stent was then deployed across the lesion and balloon angioplasty was performed once again with a 6 x 150 mm balloon. Final angiogram demonstrated complete resolution of the stenosis and dissection flap with good brisk flow to the foot with three-vessel runoff. All guidewires and catheters were removed and pressure was placed for hemostasis. Pressure dressing was also placed. Patient tolerated procedure well had a palpable DP and PT pulse at the conclusion of the procedure.
[2018-04-15] MEDS: SODIUM CHLORIDE 0.9% 1,000 ML IV SCH ×3 (13:53→16:00)
[2018-04-15] MEDS: CLOPIDOGREL 75 MG TAB PO SCH (14:10)
[2018-04-15] MEDS ORDERED: SODIUM CHLORIDE 0.9% 500 ML 500 ML IV ONE (15:40)
[2018-04-15] MEDS: HEPARIN SOD,PORK IN 0.45% NACL 25,000 UNIT in 0.45% NACL 1 250ML.BAG IV SCH (15:58)
[2018-04-15 16:48] LABS: Basophils % (A) 0 %; Eosinophils # (A) 0.2 k/uL (0-0.7); Eosinophils % (A) 2 %; HCT 35.2 % (39.0-53.0); HGB 11.1 gm/dL (13.0-17.5); Lymphocytes # (A) 1.3 k/uL (1.0-4.8); Lymphocytes % (A) 14 %; MCH 31.6 pg (25.0-35.0); MCHC 31.4 g/dL (31.0-37.0); MCV 100.5 fL (80.0-100.0); Macrocytosis Slight; Monocytes # (A) 0.4 k/uL (0-1.0); Monocytes % (A) 5 %; Neutrophils # (A) 6.8 k/uL (1.3-7.7); Neutrophils % (A) 76 %; Platelet Count 207 k/uL (150-450); RDW 13.7 % (11.5-15.5); WBC 8.9 k/uL (3.8-10.6)
[2018-04-15 16:59] LABS: Calcium 8.2 mg/dL (8.4-10.2); Magnesium 1.7 mg/dL (1.6-2.3); Phosphorus 4.4 mg/dL (2.5-4.5); Potassium 4.7 mmol/L (3.5-5.1); Total Bilirubin 0.3 mg/dL (0.2-1.3); Total Protein 5.2 g/dL (6.3-8.2)
[2018-04-15] MEDS: LACTATED RINGERS 1,000 ML IV SCH ×2 (17:18→18:51)
--- NOTE | 2018-04-15 17:52 | P.CNPUL ---
History of Present Illness Consult date: 04/14/18 (Late entry note) Reason for consult: dyspnea Chief complaint: Gen. ICU care History of present illness: 57-year-old male well-known to me with history of end-stage lung disease second to severe COPD emphysema pulmonary embolism, extensive history of smoking and nicotine use has severe end-stage lung disease and chronic hypoxic respiratory failure patient presented to ER yesterday morning with complaints of left foot numbness and new onset pain. CTA was obtained demonstrating occlusion noted at the left superficial femoral artery extending to the popliteal with recollateralization at the below knee tibial peroneal trunk. He was initiated on heparin drip close monitoring and observation, he was still having mild pain with cool left foot and ABIs were obtained demonstrating 0.2 on the left with a normal EMMA on the right, patient was taken to the OR underwent right, her femoral femoral artery axis under ultrasound guidance selective angiogram and placement of thumb both lytic catheter and initiation of thrombolysis Review of Systems All systems: negative 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, CVA with L sided weakness (pt states occured during caratid endartectomy), TIA, bowel obstruction with resection/colostomy and reversal of colostomy, MIGRAINES, bilateral TINNITUS, WAS TOLD 20 YEARS AGO HE HAD ALCOHOLIC HEPATITIS, bilateral GLAUCOMA History of Any Multi-Drug Resistant Organisms: VRE Date of last positivie culture/infection: 06/10/16 MDRO Source:: [id number] Past Surgical History: Bowel Resection, Hernia Repair, Orthopedic Surgery Additional Past Surgical History / Comment(s): Gastric ulcer perforation with repair, EGD/COLONOSCOPY,, JOSIAH KNEE ARTHROSCOPY, abdominal hernia repair. 05/2016 bowel resection d/t obstruction with colostomy then reversal, PICC line, R caratid endartectomy. Past Anesthesia/Blood Transfusion Reactions: Motion Sickness Smoking Status: Current every day smoker - Past Family History Sister(s) Family Medical History: Cancer Additional Family Medical History / Comment(s): SKIN CANCER Mother Family Medical History: Cancer Additional Family Medical History / Comment(s): BREAST Father Additional Family Medical History / Comment(s): YELLOW JAUNDICE, MALARIA FROM WW2, EMPHYSEMA Brother(s) Family Medical History: Cancer Additional Family Medical History / Comment(s): SKIN Medications and Allergies Home Medications Medication Instructions Recorded Confirmed Type carBAMazepine [TEGretol] 200 mg PO BID 12/22/13 04/13/18 History Metoprolol Tartrate [Lopressor] 50 mg PO BID 01/19/17 04/13/18 History Budesonide [Pulmicort] 0.5 mg INHALATION RT-BID 01/28/17 04/13/18 History Ipratropium-Albuterol Nebulize 3 ml INHALATION RT-QID PRN 01/28/17 04/13/18 History [Duoneb 0.5 mg-3 mg/3 ml Soln] Albuterol Nebulized [Ventolin 2.5 mg INHALATION RT-Q6H 12/07/17 04/13/18 History Nebulized] Gabapentin [Neurontin] 300 mg PO BID 12/07/17 04/13/18 History amLODIPine [Norvasc] 10 mg PO DAILY 12/07/17 04/13/18 History Meclizine [Antivert] 12.5 mg PO TID 01/06/18 04/13/18 History DULoxetine HCL [Cymbalta] 60 mg PO DAILY 04/13/18 04/13/18 History FLUoxetine HCL [PROzac] 20 mg PO DAILY 04/13/18 04/13/18 History HYDROcodone/APAP 7.5-325MG [[place] 1 tab PO BID PRN 04/13/18 04/13/18 History 7.5-325] Topiramate [Topamax] 50 mg PO DAILY 04/13/18 04/13/18 History Allergies Allergy/AdvReac Type Severity Reaction Status Date / Time varenicline tartrate Allergy Intermediate Rash/Hives Verified 04/13/18 09:22 [From Chantix] ampicillin Allergy Rash/Hives Verified 04/13/18 09:22 Physical Exam Vitals: Vital Signs Temp Pulse Pulse Resp BP BP Pulse Ox 04/15/18 17:00 87 16 77/53 96 04/15/18 16:00 97.9 F 90 34 H 69/40 95 04/15/18 15:00 100 19 79/64 91 L 04/15/18 14:00 98.3 F 86 14 84/64 95 04/15/18 13:46 98.3 F 92 18 88/64 94 L 04/15/18 12:00 117/73 04/15/18 11:00 77 9 L 123/78 97 04/15/18 10:00 84 12 133/99 96 04/15/18 09:00 93 15 117/78 95 04/15/18 08:31 87 04/15/18 08:16 83 96 04/15/18 08:00 97.5 F L 85 12 133/88 97 04/15/18 07:00 79 12 114/78 96 04/15/18 06:00 78 17 113/81 96 04/15/18 05:00 77 12 119/83 97 04/15/18 04:00 97.8 F 88 19 114/70 96 04/15/18 03:00 81 11 L 110/72 95 04/15/18 02:00 76 9 L 112/71 97 04/15/18 01:40 75 04/15/18 01:30 71 04/15/18 01:00 73 12 109/76 95 04/15/18 00:13 74 15 109/76 98 04/15/18 00:00 97.7 F 75 12 99/64 95 04/14/18 23:00 74 12 125/86 96 04/14/18 22:00 82 14 127/84 96 04/14/18 21:00 77 12 120/75 96 04/14/18 20:00 97.5 F L 88 16 105/74 94 L 04/14/18 19:07 80 04/14/18 19:00 79 14 153/103 99 04/14/18 18:54 79 04/14/18 18:00 89 7 L 153/103 95 Intake and Output 04/15/18 04/15/18 04/15/18 06:59 14:59 22:59 Intake Total 084 114 7125 Output Total 435 660 50 Balance -969 132 7137 Intake: IV 320 370 625 Heparin 40 35 0 Sodium Chloride 0.9% 1, 200 175 625 000 ml @ 25 mls/hr IV . Q24H [facility] Rx#:[id number] TPA 80 10 Intake, IV Titration 500 Amount Lactated Ringers 1,000 ml 500 @ 500 mls/hr IV .Q2H [facility] Rx#:[id number] Oral 450 Output: Urine 435 660 50 Other: Voiding Method Indwelling Catheter Indwelling Catheter Indwelling Catheter Weight 63.1 kg - Constitutional General appearance: average body habitus, cooperative, disheveled, mild distress - EENT Eyes: EOMI, PERRLA, normal appearance ENT: hearing grossly normal, normal oropharynx Ears: bilateral: normal - Neck Carotids: bilateral: upstroke normal Thyroid: bilateral: normal size - Respiratory Respiratory: bilateral: CTA, diminished, prolonged expiration, negative: dullness, rales, rhonchi, wheezing - Cardiovascular Rhythm: regular Heart sounds: normal: S1, S2 - Gastrointestinal General gastrointestinal: normal bowel sounds, soft - Integumentary Integumentary: normal turgor - Neurologic Neurologic: CNII-XII intact - Musculoskeletal Musculoskeletal: gait normal, generalized weakness, strength equal bilaterally - Psychiatric Psychiatric: A&O x's 3, appropriate affect, intact judgment & insight Results - Laboratory Findings CBC and BMP: 04/15/18 16:33 04/15/18 16:33 PT/INR, D-dimer PT 9.5 sec (9.0-12.0) 04/14/18 15:05 INR 0.9 (<1.2) 04/14/18 15:05 Abnormal lab findings: Abnormal Labs 04/13/18 04/13/18 04/13/18 03:25 11:56 18:14 RBC Hgb Hct MCV MCHC Lymphocytes # (Manual) APTT 52.9 H 46.0 H Fibrinogen Sodium BUN Creatinine Glucose 103 H Calcium Total Protein Albumin 04/14/18 04/14/18 04/14/18 01:33 08:32 15:05 RBC Hgb Hct MCV 100.2 H MCHC 30.6 L Lymphocytes # (Manual) APTT 40.5 H 57.3 H Fibrinogen Sodium BUN Creatinine Glucose Calcium Total Protein Albumin 04/14/18 04/14/18 04/15/18 15:05 15:05 04:41 RBC Hgb Hct MCV 101.3 H MCHC 30.6 L Lymphocytes # (Manual) 0.73 L APTT 30.6 H Fibrinogen 537 H Sodium BUN 8 L Creatinine 0.53 L Glucose Calcium Total Protein Albumin 04/15/18 04/15/18 04/15/18 04:41 04:41 16:33 RBC 3.50 L Hgb 11.1 L Hct 35.2 L MCV 100.5 H MCHC Lymphocytes # (Manual) APTT 34.5 H Fibrinogen Sodium 134 L BUN Creatinine 0.53 L Glucose 103 H Calcium Total Protein Albumin 04/15/18 16:33 RBC Hgb Hct MCV MCHC Lymphocytes # (Manual) APTT Fibrinogen Sodium 135 L BUN Creatinine Glucose 136 H Calcium 8.2 L Total Protein 5.2 L Albumin 3.0 L - Diagnostic Findings Additional studies: CT MEKHI finding as noted above Assessment and Plan Assessment: Peripheral arterial disease and acute thrombosis of left superficial femoral artery Severe COPD Chronic hypoxic respiratory failure History of DVT PE Bowel perforation history Plan: Continue anticoagulation as per plan by vascular surgery Broncodilators as needed Continue supportive care DVT and peptic ulcer disease prophylaxis Time with Patient: Greater than 30
--- NOTE | 2018-04-15 18:00 | P.PN ---
Subjective Progress Note Date: 04/15/18 (Critical care time spent 35 minutes) Principal diagnosis: Acute left superficial femoral artery thrombosis, peripheral arterial disease, history of DVT PE in the past, chronic hypoxic respiratory failure, severe COPD emphysema, history of bowel perforation, history of right carotid endarterectomy 04/15/2018, patient seen and evaluated examined during the rounds and postoperatively, patient is a status post TPA and heparin with intra-arterial catheter postop day #1 however continued to have pain, slightly warm extremity but circulation remains very poor patient was taken to the OR underwent left lower extremity superficial femoral popliteal TPO peroneal trunk thrombosis resolved with good flow area of stenosis in its proximal and mid distal superficial femoral artery was noted the stenosis appears to be very complex Ammann patient underwent selective angiogram of superficial femoral artery followed by percutaneous transluminal balloon angioplasty for details please refer to operative note patient post surgery evaluated stat labs has been ordered as patient appears to be anemic to transfuse 2 unit of packed RBC if hemoglobin is less than 7, patient noted to be hypertensive is being given LR fluid boluses, critical care time spent 35 minutes 57-year-old male well-known to me with history of end-stage lung disease second to severe COPD emphysema pulmonary embolism, extensive history of smoking and nicotine use has severe end-stage lung disease and chronic hypoxic respiratory failure patient presented to ER yesterday morning with complaints of left foot numbness and new onset pain. CTA was obtained demonstrating occlusion noted at the left superficial femoral artery extending to the popliteal with recollateralization at the below knee tibial peroneal trunk. He was initiated on heparin drip close monitoring and observation, he was still having mild pain with cool left foot and ABIs were obtained demonstrating 0.2 on the left with a normal EMMA on the right, patient was taken to the OR underwent right, her femoral femoral artery axis under ultrasound guidance selective angiogram and placement of thumb both lytic catheter and initiation of thrombolysis Objective - Vital Signs Vital signs: Vital Signs Temp 97.9 F 04/15/18 16:00 Pulse 87 04/15/18 17:00 Resp 16 04/15/18 17:00 BP 77/53 04/15/18 17:00 Pulse Ox 96 04/15/18 17:00 Intake & Output 04/14/18 04/15/18 04/15/18 18:59 06:59 18:59 Intake Total 802.5 440 1945 Output Total 510 735 710 Balance 292.5 -295 1235 Weight 63.1 kg Intake: IV 502.5 440 995 Heparin 25 55 35 Sodium Chloride 0.9% 1, 125 275 800 000 ml @ 25 mls/hr IV . Q24H [facility] Rx#:[id number] TPA 50 110 10 Intake, IV Titration 500 Amount Lactated Ringers 1,000 ml 500 @ 500 mls/hr IV .Q2H [facility] Rx#:[id number] Oral 300 450 Output: Urine 510 735 710 Other: Voiding Method Indwelling Catheter Indwelling Catheter Indwelling Catheter # Voids 1 # Bowel Movements 1 - Exam - Constitutional General appearance: average body habitus, cooperative, disheveled, mild distress - EENT Eyes: EOMI, PERRLA, normal appearance ENT: hearing grossly normal, normal oropharynx Ears: bilateral: normal - Neck Carotids: bilateral: upstroke normal Thyroid: bilateral: normal size - Respiratory Respiratory: bilateral: CTA, diminished, prolonged expiration, negative: dullness, rales, rhonchi, wheezing - Cardiovascular Rhythm: regular Heart sounds: normal: S1, S2 - Gastrointestinal General gastrointestinal: normal bowel sounds, soft - Integumentary Integumentary: normal turgor - Neurologic Neurologic: CNII-XII intact - Musculoskeletal Musculoskeletal: gait normal, generalized weakness, strength equal bilaterally - Psychiatric Psychiatric: A&O x's 3, appropriate affect, intact judgment & insight - Labs CBC & Chem 7: 04/15/18 16:33 04/15/18 16:33 Labs: Abnormal Lab Results - Last 24 Hours (Table) 04/15/18 04/15/18 04/15/18 Range/Units 04:41 04:41 04:41 RBC (4.30-5.90) m/uL Hgb (13.0-17.5) gm/dL Hct (39.0-53.0) % MCV 101.3 H (80.0-100.0) fL MCHC 30.6 L (31.0-37.0) g/dL Lymphocytes # (Manual) 0.73 L (1.0-4.8) k/uL APTT 34.5 H (22.0-30.0) sec Sodium 134 L (137-145) mmol/L Creatinine 0.53 L (0.66-1.25) mg/dL Glucose 103 H (74-99) mg/dL Calcium (8.4-10.2) mg/dL Total Protein (6.3-8.2) g/dL Albumin (3.5-5.0) g/dL 04/15/18 04/15/18 Range/Units 16:33 16:33 RBC 3.50 L (4.30-5.90) m/uL Hgb 11.1 L (13.0-17.5) gm/dL Hct 35.2 L (39.0-53.0) % MCV 100.5 H (80.0-100.0) fL MCHC (31.0-37.0) g/dL Lymphocytes # (Manual) (1.0-4.8) k/uL APTT (22.0-30.0) sec Sodium 135 L (137-145) mmol/L Creatinine (0.66-1.25) mg/dL Glucose 136 H (74-99) mg/dL Calcium 8.2 L (8.4-10.2) mg/dL Total Protein 5.2 L (6.3-8.2) g/dL Albumin 3.0 L (3.5-5.0) g/dL Assessment and Plan Assessment: Peripheral arterial disease and acute thrombosis of left superficial femoral artery Severe COPD Chronic hypoxic respiratory failure History of DVT PE Bowel perforation history Hypotension Plan: Continue anticoagulation as per plan by vascular surgery Broncodilators as needed Continue supportive care DVT and peptic ulcer disease prophylaxis Patient can be started on Coumadin once cleared by vascular surgery IV fluid boluses Blood transfusion if hemoglobin drops less than 7 Time with Patient: Greater than 30
[2018-04-15] MEDS ORDERED: PRAVASTATIN SODIUM 40 MG TAB PO SCH (21:00)
[2018-04-15] MEDS ORDERED: ACETAMINOPHEN TAB 325 MG TAB PO PRN (21:02)
--- NOTE | 2018-04-16 00:27 | PN ---
PROGRESS NOTE SUBJECTIVE: This is a 57-year-old white male status post thrombolysis of the left lower extremity with a stent placed for PAD. Went from dusky to feeling better in pink color. Cardiovascular: S1, S2. Lungs clear. GI soft. Hematology negative Homans. Psych fair mood and affect. ASSESSMENT: 1. Acute PID status post vascular occlusion repair. 2. Nicotine addiction. 3. Chronic obstructive pulmonary disease. Continue current treatment with vascular repair of the extremities. Follow up next 24 to 48 hours for possible discharge. MMODL / IJN: [id number] /
[2018-04-16] MEDS: ALBUTEROL NEBULIZED 2.5 MG/3 ML INHALATION SCH ×3 (01:24→13:39)
[2018-04-16] MEDS: SODIUM CHLORIDE 0.9% 1,000 ML IV SCH ×2 (03:30→10:14)
[2018-04-16 06:52] LABS: Anion Gap 4 mmol/L; Blood Urea Nitrogen 14 mg/dL (9-20); Carbon Dioxide 23 mmol/L (22-30); Chloride 109 mmol/L (98-107); Glucose 105 mg/dL (74-99); Phosphorus 3.1 mg/dL (2.5-4.5); Potassium 4.3 mmol/L (3.5-5.1); Sodium 136 mmol/L (137-145)
[2018-04-16 07:06] LABS: Basophils % (A) 0 %; Eosinophils # (A) 0.2 k/uL (0-0.7); Eosinophils % (A) 2 %; HCT 26.8 % (39.0-53.0); Lymphocytes % (A) 15 %; MCH 32.3 pg (25.0-35.0); MCHC 32.3 g/dL (31.0-37.0); MCV 99.7 fL (80.0-100.0); Mean Platelet Volume 6.8; Monocytes # (A) 0.5 k/uL (0-1.0); Monocytes % (A) 7 %; Neutrophils # (A) 4.7 k/uL (1.3-7.7); Neutrophils % (A) 73 %; Platelet Count 165 k/uL (150-450); RBC 2.69 m/uL (4.30-5.90); WBC 6.5 k/uL (3.8-10.6)
[2018-04-16 07:12] LABS: INR 0.9 (<1.2); Prothrombin Time 9.6 sec (9.0-12.0)
[2018-04-16 07:13] LABS: Partial Thromboplastin Time 27.9 sec (22.0-30.0)
[2018-04-16] MEDS: BUDESONIDE 0.5 MG/2 ML NEBU INHALATION SCH (07:17)
[2018-04-16] MEDS: HYDROcodone/APAP 7.5-325MG 1 EACH TAB PO PRN ×2 (07:28→12:52)
[2018-04-16 07:29] LABS: HGB 8.7 gm/dL (13.0-17.5)
[2018-04-16] MEDS ORDERED: PANTOPRAZOLE 40 MG TABLET PO SCH (07:30)
[2018-04-16] MEDS ORDERED: Potassium Replacement Protocol 1 EACH MISC MISCELLANE PRN (07:33)
[2018-04-16] MEDS ORDERED: Magnesium Replacement Protocol 1 EACH MISC MISCELLANE PRN (07:34)
--- NOTE | 2018-04-16 09:52 | IR ---
Fluoroscopy HISTORY: Peripheral vascular occlusive disease 5.8 minutes fluoroscopy time supplied to the referring clinician. 854 intraoperative C-arm images do cument the procedure. See dictated report from vascular surgery.
[2018-04-16] MEDS: GABAPENTIN 300 MG CAP PO SCH (09:56)
[2018-04-16] MEDS: METOPROLOL TARTRATE 50 MG TAB PO SCH (09:56)
[2018-04-16] MEDS: FLUoxetine HCL 20 MG CAP PO SCH (09:56)
[2018-04-16] MEDS: amLODIPine 10 MG TAB PO SCH (09:56)
[2018-04-16] MEDS: DULoxetine HCL 60 MG CAPSULE.DR PO SCH (09:56)
[2018-04-16] MEDS: CLOPIDOGREL 75 MG TAB PO SCH (09:57)
[2018-04-16] MEDS: MECLIZINE 12.5 MG TAB PO SCH (09:57)
[2018-04-16] MEDS: TOPIRAMATE 25 MG TAB PO SCH (09:57)
[2018-04-16] MEDS: carBAMazepine 200 MG TAB PO SCH (09:57)
[2018-04-16] MEDS: METHYL SALICYLATE/MENTHOL CREAM 5 OZ TOPICAL PRN (09:58)
[2018-04-16] MEDS: MAGNESIUM SULFATE-D5W PMX 1 GM in DEXTROSE/WATER 1 100ML.BAG IVPB SCH (10:02)
[2018-04-16] MEDS: POTASSIUM CHLORIDE ER 20 MEQ TAB.ER PO SCH ×2 (10:03→10:04)
--- NOTE | 2018-04-16 12:17 | P.PN ---
Subjective Progress Note Date: 04/16/18 Principal diagnosis: 1 day status post PTBA with stenting of right femoral artery with recent lytic therapy for acute thrombosis. Patient has no new complaints. He has been having some sporadic spasms in the lower leg. Objective - Vital Signs Vital signs: Vital Signs Temp 98.6 F 04/16/18 04:00 Pulse 104 H 04/16/18 07:34 Resp 11 L 04/16/18 04:00 BP 110/68 04/16/18 04:00 Pulse Ox 98 04/16/18 07:20 Intake & Output 04/15/18 04/16/18 04/16/18 18:59 06:59 18:59 Intake Total 2595 1850 375 Output Total 750 560 250 Balance 1845 1290 125 Weight 62.2 kg Intake: IV 995 125 Heparin 35 Sodium Chloride 0.9% 1, 800 125 000 ml @ 25 mls/hr IV . Q24H [facility] Rx#:[id number] TPA 10 Intake, IV Titration 1000 1500 375 Amount Lactated Ringers 1,000 ml 1000 @ 500 mls/hr IV .Q2H [facility] Rx#:[id number] Sodium Chloride 0.9% 1, 1500 375 000 ml @ 125 mls/hr IV . Q8H [facility] Rx#:[id number] Oral 600 225 Output: Urine 750 560 250 Other: Voiding Method Indwelling Catheter Indwelling Catheter - Exam The entire foot and leg are warm. He has good Doppler signals. - Labs CBC & Chem 7: 04/16/18 05:42 04/16/18 05:42 Labs: Abnormal Lab Results - Last 24 Hours (Table) 04/15/18 04/15/18 04/16/18 Range/Units 16:33 16:33 05:42 RBC 3.50 L 2.69 L (4.30-5.90) m/uL Hgb 11.1 L 8.7 L D (13.0-17.5) gm/dL Hct 35.2 L 26.8 L (39.0-53.0) % MCV 100.5 H (80.0-100.0) fL Sodium 135 L (137-145) mmol/L Chloride (98-107) mmol/L Creatinine (0.66-1.25) mg/dL Glucose 136 H (74-99) mg/dL Calcium 8.2 L (8.4-10.2) mg/dL Total Protein 5.2 L (6.3-8.2) g/dL Albumin 3.0 L (3.5-5.0) g/dL 04/16/18 Range/Units 05:42 RBC (4.30-5.90) m/uL Hgb (13.0-17.5) gm/dL Hct (39.0-53.0) % MCV (80.0-100.0) fL Sodium 136 L (137-145) mmol/L Chloride 109 H (98-107) mmol/L Creatinine 0.63 L (0.66-1.25) mg/dL Glucose 105 H (74-99) mg/dL Calcium 8.0 L (8.4-10.2) mg/dL Total Protein (6.3-8.2) g/dL Albumin (3.5-5.0) g/dL Assessment and Plan (1) Occlusion of left femoral artery Current Visit: Yes Status: Acute Code(s): I70.202 - UNSP ATHSCL UPPER [place] ARTERIES OF EXTREMITIES, LEFT LEG SNOMED Code(s): 07062982735507344 (2) Ischemic leg Current Visit: Yes Status: Acute Code(s): I99.8 - OTHER DISORDER OF CIRCULATORY SYSTEM SNOMED Code(s): 644777250 Plan: The patient has done quite nicely with his lytic therapy and stenting. The patient has voiced concerns about taking his Plavix due to cost. We will have ulcer work look into the cross. Would prefer he take Plavix for 3-6 months due to new stent. He is to continue to progress activities as tolerated. He will see Dr. Riley in 1-2 weeks.
[2018-04-16 12:37] VITALS: BP 106/72; PULSE 89; RESP 16; TEMP 98.7
--- NOTE | 2018-04-16 16:34 | P.PN ---
Subjective Progress Note Date: 04/16/18 Principal diagnosis: Acute left superficial femoral artery thrombosis, peripheral arterial disease, history of DVT PE in the past, chronic hypoxic respiratory failure, severe COPD emphysema, history of bowel perforation, history of right carotid endarterectomy 04/16/2018, patient seen and evaluated examined during this morning rounds clinically has been doing well awake and alert breathing comfortably hemodynamic status stable, labs reviewed medications reviewed vascular surgery have cleared the patient for discharge agree with discharge planning will defer further anticoagulation to vascular surgery given that the groin hematoma as noted in present. Patient is being treated with Plavix 04/15/2018, patient seen and evaluated examined during the rounds and postoperatively, patient is a status post TPA and heparin with intra-arterial catheter postop day #1 however continued to have pain, slightly warm extremity but circulation remains very poor patient was taken to the OR underwent left lower extremity superficial femoral popliteal TPO peroneal trunk thrombosis resolved with good flow area of stenosis in its proximal and mid distal superficial femoral artery was noted the stenosis appears to be very complex Ammann patient underwent selective angiogram of superficial femoral artery followed by percutaneous transluminal balloon angioplasty for details please refer to operative note patient post surgery evaluated stat labs has been ordered as patient appears to be anemic to transfuse 2 unit of packed RBC if hemoglobin is less than 7, patient noted to be hypertensive is being given LR fluid boluses, critical care time spent 35 minutes 57-year-old male well-known to me with history of end-stage lung disease second to severe COPD emphysema pulmonary embolism, extensive history of smoking and nicotine use has severe end-stage lung disease and chronic hypoxic respiratory failure patient presented to ER yesterday morning with complaints of left foot numbness and new onset pain. CTA was obtained demonstrating occlusion noted at the left superficial femoral artery extending to the popliteal with recollateralization at the below knee tibial peroneal trunk. He was initiated on heparin drip close monitoring and observation, he was still having mild pain with cool left foot and ABIs were obtained demonstrating 0.2 on the left with a normal EMMA on the right, patient was taken to the OR underwent right, her femoral femoral artery axis under ultrasound guidance selective angiogram and placement of thumb both lytic catheter and initiation of thrombolysis Objective - Vital Signs Vital signs: Vital Signs Temp 98.7 F 04/16/18 08:00 Pulse 89 04/16/18 12:00 Resp 16 04/16/18 12:00 BP 106/72 04/16/18 12:00 Pulse Ox 92 L 04/16/18 11:00 Intake & Output 04/15/18 04/16/18 04/16/18 18:59 06:59 18:59 Intake Total 2595 1850 750 Output Total 750 560 525 Balance 1845 1290 225 Weight 62.2 kg Intake: IV 995 125 375 Heparin 35 Sodium Chloride 0.9% 1, 375 000 ml @ 125 mls/hr IV . Q8H [facility] Rx#:[id number] Sodium Chloride 0.9% 1, 800 125 000 ml @ 25 mls/hr IV . Q24H [facility] Rx#:[id number] TPA 10 Intake, IV Titration 1000 1500 375 Amount Lactated Ringers 1,000 ml 1000 @ 500 mls/hr IV .Q2H [facility] Rx#:[id number] Sodium Chloride 0.9% 1, 1500 375 000 ml @ 125 mls/hr IV . Q8H [facility] Rx#:[id number] Oral 600 225 Output: Urine 750 560 525 Other: Voiding Method Indwelling Catheter Indwelling Catheter - Exam - Constitutional General appearance: average body habitus, cooperative, disheveled, mild distress - EENT Eyes: EOMI, PERRLA, normal appearance ENT: hearing grossly normal, normal oropharynx Ears: bilateral: normal - Neck Carotids: bilateral: upstroke normal Thyroid: bilateral: normal size - Respiratory Respiratory: bilateral: CTA, diminished, prolonged expiration, negative: dullness, rales, rhonchi, wheezing - Cardiovascular Rhythm: regular Heart sounds: normal: S1, S2 - Gastrointestinal General gastrointestinal: normal bowel sounds, soft - Integumentary Integumentary: normal turgor - Neurologic Neurologic: CNII-XII intact - Musculoskeletal Musculoskeletal: gait normal, generalized weakness, strength equal bilaterally - Psychiatric Psychiatric: A&O x's 3, appropriate affect, intact judgment & insight - Labs CBC & Chem 7: 04/16/18 05:42 04/16/18 05:42 Labs: Abnormal Lab Results - Last 24 Hours (Table) 04/15/18 04/15/18 04/16/18 Range/Units 16:33 16:33 05:42 RBC 3.50 L 2.69 L (4.30-5.90) m/uL Hgb 11.1 L 8.7 L D (13.0-17.5) gm/dL Hct 35.2 L 26.8 L (39.0-53.0) % MCV 100.5 H (80.0-100.0) fL Sodium 135 L (137-145) mmol/L Chloride (98-107) mmol/L Creatinine (0.66-1.25) mg/dL Glucose 136 H (74-99) mg/dL Calcium 8.2 L (8.4-10.2) mg/dL Total Protein 5.2 L (6.3-8.2) g/dL Albumin 3.0 L (3.5-5.0) g/dL 04/16/18 Range/Units 05:42 RBC (4.30-5.90) m/uL Hgb (13.0-17.5) gm/dL Hct (39.0-53.0) % MCV (80.0-100.0) fL Sodium 136 L (137-145) mmol/L Chloride 109 H (98-107) mmol/L Creatinine 0.63 L (0.66-1.25) mg/dL Glucose 105 H (74-99) mg/dL Calcium 8.0 L (8.4-10.2) mg/dL Total Protein (6.3-8.2) g/dL Albumin (3.5-5.0) g/dL Assessment and Plan Assessment: Peripheral arterial disease and acute thrombosis of left superficial femoral artery Severe COPD Right groin hematoma Chronic hypoxic respiratory failure History of DVT PE Bowel perforation history Hypotension Plan: Continue anticoagulation as per plan by vascular surgery Broncodilators as needed Continue supportive care DVT and peptic ulcer disease prophylaxis Patient can be started on Coumadin once cleared by vascular surgery Blood transfusion if hemoglobin drops less than 7 Agree with discharge planning with follow-up in outpatient setting Time with Patient: Greater than 30
[2018-04-16] MEDS ORDERED: WARFARIN 5 MG TAB PO SCH (18:00)
== END 2018-04-16 14:43 | disposition home health service (06) | DRG 253 ==
LOC: EC 03:18 → 3NMEDONC 05:17 → 2SICU 04-14 14:04
PROVIDERS: ADMIT Family Medicine; ATTEND Family Medicine
PROC: 3E05317 Introduction of Other Thrombolytic into Peripheral Artery, Percutaneous Approach (ICD-10-PCS; principal; 2018-04-14 12:17)
PROC: 047L3D1 Dilation of Left Femoral Artery with Intraluminal Device, using Drug-Coated Balloon, Percutaneous Approach (ICD-10-PCS; 2018-04-15 12:15)
DX: I74.3 Embolism and thrombosis of arteries of the lower extremities (principal); I69.354 Hemiplegia and hemiparesis following cerebral infarction affecting left non-dominant side; E87.2 Acidosis; J96.11 Chronic respiratory failure with hypoxia; E11.51 Type 2 diabetes mellitus with diabetic peripheral angiopathy without gangrene; I70.92 Chronic total occlusion of artery of the extremities; I70.202 Unspecified atherosclerosis of native arteries of extremities, left leg; I48.91 Unspecified atrial fibrillation; I10 Essential (primary) hypertension; G40.909 Epilepsy, unspecified, not intractable, without status epilepticus; M19.90 Unspecified osteoarthritis, unspecified site; H40.9 Unspecified glaucoma; J43.9 Emphysema, unspecified; F17.200 Nicotine dependence, unspecified, uncomplicated; Z79.01 Long term (current) use of anticoagulants; Z86.718 Personal history of other venous thrombosis and embolism; Z86.711 Personal history of pulmonary embolism; Z79.899 Other long term (current) drug therapy; Z80.8 Family history of malignant neoplasm of other organs or systems; Z82.5 Family history of asthma and other chronic lower respiratory diseases; Z87.11 Personal history of peptic ulcer disease; Z90.49 Acquired absence of other specified parts of digestive tract; Z86.19 Personal history of other infectious and parasitic diseases; Z88.0 Allergy status to penicillin; Z88.8 Allergy status to other drugs, medicaments and biological substances; Z87.01 Personal history of pneumonia (recurrent); Z99.81 Dependence on supplemental oxygen
CPT/HCPCS: 36246; 36415; 37211; 37214; 37226; 70450; 75710; 80048; 80053; 82550; 82565; 83605; 83735; 84100; 84520; 85025; 85384; 85610; 85730; 86850; 86900; 86901; 93005; 93922; 94640; 96361; 96365; 96376; 99285

== ENCOUNTER 2018-05-25 17:45 | Emergency (ER) | payer MEDICARE ==
[2018-05-25 18:02] VITALS: TEMP 97.9
--- NOTE | 2018-05-25 18:06 | ED ---
Neuro HPI - General Stated Complaint: Poss CVA Time Seen by Provider: 05/25/18 17:57 - History of Present Illness Is the patient presenting with stroke symptoms?: Yes Initial Comments: Is a 57-year-old male with a history of CVA who currently takes Plavix who presents emergency department for left-sided facial droop. He also has a history of COPD on chronic 2 L of oxygen at home,, hypertension, hyperlipidemia. He states that approximately around 4:50 PM he noticed that he had some left-sided facial droop and slurring of his speech. The patient does have some chronic weakness of his left upper and left lower extremity from his previous CVA in November 2016 however states that his left facial droop and slurred speech had resolved from that previous stroke. The patient states that he "felt bad" today however did not notice these neurologic symptoms until approximately 4:50 PM. He states that on initial presentation of his previous stroke he did have left sided facial droop and slurred speech however this resolved and he was on the left with chronic left upper and left lower extremity symptoms. He denies a chest pain or shortness of breath. No head trauma. He denies any fevers or chills. No other acute complaints. - Related Data Home Medications: Home Medications Medication Instructions Recorded Confirmed carBAMazepine [TEGretol] 200 mg PO BID 12/22/13 05/25/18 Metoprolol Tartrate [Lopressor] 50 mg PO BID 01/19/17 05/25/18 Gabapentin [Neurontin] 300 mg PO BID 12/07/17 05/25/18 amLODIPine [Norvasc] 10 mg PO DAILY 12/07/17 05/25/18 Meclizine [Antivert] 12.5 mg PO TID 01/06/18 05/25/18 DULoxetine HCL [Cymbalta] 60 mg PO DAILY 04/13/18 05/25/18 FLUoxetine HCL [PROzac] 20 mg PO DAILY 04/13/18 05/25/18 HYDROcodone/APAP 7.5-325MG [[place] 1 tab PO BID PRN 04/13/18 05/25/18 7.5-325] Topiramate [Topamax] 50 mg PO DAILY 04/13/18 05/25/18 Azithromycin [Zithromax Tri-Angel] 500 mg PO DAILY 05/25/18 05/25/18 Baclofen 5 mg PO BID 05/25/18 05/25/18 Clopidogrel Bisulfate [Plavix] 75 mg PO DAILY 05/25/18 05/25/18 tiZANidine HCL [Zanaflex] 2 mg PO TID 05/25/18 05/25/18 Allergies/Adverse Reactions: Allergies Allergy/AdvReac Type Severity Reaction Status Date / Time varenicline tartrate Allergy Intermediate Rash/Hives Verified 05/25/18 18:59 [From Chantix] ampicillin Allergy Rash/Hives Verified 05/25/18 18:59 Review of Systems ROS Statement: Those systems with pertinent positive or pertinent negative responses have been documented in the HPI. ROS Other: All systems not noted in ROS Statement are negative. General Exam - General Exam Comments Initial Comments: Constitutional: Awake alert Appears comfortable Head: Normocephalic atraumatic Eyes: no conjunctival injection No scleral icterus EOMI Neck: No JVD Supple Heart: Regular rate rhythm normal S1-S2 no murmurs Lungs: Clear to auscultation bilaterally No wheezing No rales Abdomen: Soft nondistended nontender Extremities: Non edematous DP pulses intact Radial pulses intact Neuro: A&Ox3 the patient does have a left-sided facial droop that is not resolved with smiling, no tongue deviation, there is some very mild slurred speech however the patient can be understood easily, there is 4 out of 5 left upper extremity strength when compared to the right. Also has some weakness in the left lower extremity and some difficulty with coordination of the left lower extremity. No right-sided deficits. No visual field deficits. No gaze deviation, no neglect. The patient has no sensory findings on examination. Initial NIH stroke scale of 5. Psych: Appropriate mood and affect Stroke MDM - Lab Data Result diagrams: 05/25/18 18:00 Lab Results 05/25/18 05/25/18 05/25/18 Range/Units 18:00 18:00 18:00 WBC 6.0 (3.8-10.6) k/uL RBC 4.26 L (4.30-5.90) m/uL Hgb 13.6 D (13.0-17.5) gm/dL Hct 43.2 (39.0-53.0) % MCV 101.4 H (80.0-100.0) fL MCH 32.0 (25.0-35.0) pg MCHC 31.6 (31.0-37.0) g/dL RDW 14.5 (11.5-15.5) % Plt Count 363 D (150-450) k/uL Neutrophils % 64 % Lymphocytes % 21 % Monocytes % 7 % Eosinophils % 4 % Basophils % 1 % Neutrophils # 3.8 (1.3-7.7) k/uL Lymphocytes # 1.2 (1.0-4.8) k/uL Monocytes # 0.4 (0-1.0) k/uL Eosinophils # 0.3 (0-0.7) k/uL Basophils # 0.0 (0-0.2) k/uL Macrocytosis Slight PT 9.4 (9.0-12.0) sec INR 0.8 (<1.2) APTT 25.3 (22.0-30.0) sec POC Glucose (mg/dL) (75-99) mg/dL POC Glu Electroencephalograph Technologist ID Total Creatine Kinase 79 (55-170) U/L CK-MB (CK-2) 2.0 (0.0-2.4) ng/mL CK-MB (CK-2) Rel Index 2.5 Troponin I <0.012 (0.000-0.034) ng/mL 05/25/18 05/25/18 05/25/18 Range/Units 18:22 18:22 18:22 WBC (3.8-10.6) k/uL RBC (4.30-5.90) m/uL Hgb (13.0-17.5) gm/dL Hct (39.0-53.0) % MCV (80.0-100.0) fL MCH (25.0-35.0) pg MCHC (31.0-37.0) g/dL RDW (11.5-15.5) % Plt Count (150-450) k/uL Neutrophils % % Lymphocytes % % Monocytes % % Eosinophils % % Basophils % % Neutrophils # (1.3-7.7) k/uL Lymphocytes # (1.0-4.8) k/uL Monocytes # (0-1.0) k/uL Eosinophils # (0-0.7) k/uL Basophils # (0-0.2) k/uL Macrocytosis PT (9.0-12.0) sec INR (<1.2) APTT (22.0-30.0) sec POC Glucose (mg/dL) 87 87 87 (75-99) mg/dL POC Glu Electroencephalograph Technologist ID Elizabeth Espinal, Elizabeth Wilhelm Total Creatine Kinase (55-170) U/L CK-MB (CK-2) (0.0-2.4) ng/mL CK-MB (CK-2) Rel Index Troponin I (0.000-0.034) ng/mL 05/25/18 05/25/18 05/25/18 Range/Units 18:22 18:22 18:22 WBC (3.8-10.6) k/uL RBC (4.30-5.90) m/uL Hgb (13.0-17.5) gm/dL Hct (39.0-53.0) % MCV (80.0-100.0) fL MCH (25.0-35.0) pg MCHC (31.0-37.0) g/dL RDW (11.5-15.5) % Plt Count (150-450) k/uL Neutrophils % % Lymphocytes % % Monocytes % % Eosinophils % % Basophils % % Neutrophils # (1.3-7.7) k/uL Lymphocytes # (1.0-4.8) k/uL Monocytes # (0-1.0) k/uL Eosinophils # (0-0.7) k/uL Basophils # (0-0.2) k/uL Macrocytosis PT (9.0-12.0) sec INR (<1.2) APTT (22.0-30.0) sec POC Glucose (mg/dL) 87 87 87 (75-99) mg/dL POC Glu Electroencephalograph Technologist ID Elizabeth Espinal, Elizabeth Wilhelm Total Creatine Kinase (55-170) U/L CK-MB (CK-2) (0.0-2.4) ng/mL CK-MB (CK-2) Rel Index Troponin I (0.000-0.034) ng/mL 05/25/18 05/25/18 Range/Units 18:22 18:22 WBC (3.8-10.6) k/uL RBC (4.30-5.90) m/uL Hgb (13.0-17.5) gm/dL Hct (39.0-53.0) % MCV (80.0-100.0) fL MCH (25.0-35.0) pg MCHC (31.0-37.0) g/dL RDW (11.5-15.5) % Plt Count (150-450) k/uL Neutrophils % % Lymphocytes % % Monocytes % % Eosinophils % % Basophils % % Neutrophils # (1.3-7.7) k/uL Lymphocytes # (1.0-4.8) k/uL Monocytes # (0-1.0) k/uL Eosinophils # (0-0.7) k/uL Basophils # (0-0.2) k/uL Macrocytosis PT (9.0-12.0) sec INR (<1.2) APTT (22.0-30.0) sec POC Glucose (mg/dL) 87 87 (75-99) mg/dL POC Glu Electroencephalograph Technologist TALIA Espinal, Elizabeth Wilhelm Total Creatine Kinase (55-170) U/L CK-MB (CK-2) (0.0-2.4) ng/mL CK-MB (CK-2) Rel Index Troponin I (0.000-0.034) ng/mL - NIH Stroke Scale 1a. Level of Consciousness: (0) alert 1b. LOC Questions: (0) answers correctly 1c. LOC Commands: (0) performs tasks correctly 2. Best Gaze: (0) normal 3. Visual: (0) no visual loss 4. Facial Palsy: (2) partial paralysis 5a. Motor Arm Left: (1) drift 5b. Motor Arm Right: (0) no drift 6a. Motor Leg Left: (0) no drift 6b. Motor Leg Right: (0) no drift 7. Limb Ataxia: (1) present 1 limb 8. Sensory: (0) normal 9. Best Language: (0) no aphasia 10. Dysarthria: (1) mild/moderate dysarthria 11. Extinction/Inattention: (0) no abnormality - Thrombolytic Inclusion/Exclusion Thrombolytic Inclusion Criteria: Ischemic Stroke Onset< 3h, NIH Stroke Scale Deficit, Age 18 or Older - Medical Decision Making Is a 57-year-old male who presents emergency department for facial droop and slurred speech. Patient did present within the time window for TPA however after speaking with the neuro interventional list at [facility] did not feel that this represented an acute stroke but worsening of the old infarct. The patient did have a CT that did not reveal any intracranial hemorrhage or new ischemic changes. CT did reveal an occluded right ICA which also appears to be chronic. The patient is on Plavix and did take his medications today. The patient will be transferred to [facility] for further neurologic evaluation. I spoke with Dr. Tariq who accepted the transfer. 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, CVA with L sided weakness (pt states occured during caratid endartectomy), TIA, bowel obstruction with resection/colostomy and reversal of colostomy, MIGRAINES, bilateral TINNITUS, WAS TOLD 20 YEARS AGO HE HAD ALCOHOLIC HEPATITIS, bilateral GLAUCOMA History of Any Multi-Drug Resistant Organisms: VRE Date of last positivie culture/infection: 06/10/16 MDRO Source:: [id number] Past Surgical History: Bowel Resection, Hernia Repair, Orthopedic Surgery Additional Past Surgical History / Comment(s): Gastric ulcer perforation with repair, EGD/COLONOSCOPY,, JOSIAH KNEE ARTHROSCOPY, abdominal hernia repair. 05/2016 bowel resection d/t obstruction with colostomy then reversal, PICC line, R caratid endartectomy. Past Anesthesia/Blood Transfusion Reactions: Motion Sickness Smoking Status: Current every day smoker - Past Family History Sister(s) Family Medical History: Cancer Additional Family Medical History / Comment(s): SKIN CANCER Mother Family Medical History: Cancer Additional Family Medical History / Comment(s): BREAST Father Additional Family Medical History / Comment(s): YELLOW JAUNDICE, MALARIA FROM WW2, EMPHYSEMA Brother(s) Family Medical History: Cancer Additional Family Medical History / Comment(s): SKIN Course Vital Signs 05/25/18 05/25/18 05/25/18 17:46 18:00 18:15 Temperature 97.9 F Pulse Rate 97 96 97 Respiratory 18 18 19 Rate Blood Pressure 100/67 100/67 99/73 O2 Sat by Pulse 96 96 94 L Oximetry 05/25/18 05/25/18 18:30 18:45 Temperature Pulse Rate 94 97 Respiratory 18 17 Rate Blood Pressure 105/69 105/69 O2 Sat by Pulse 96 96 Oximetry - Reevaluation(s) Reevaluation #1: 05/25/18 18:[address] Aguilar who is the interventional neurologist on-call who stated that he feels that the symptoms or recurrence of an old CVA and not a new acute CVA. He does not recommend TPA at this time. The patient is going down for computed tomography scan and CTA of the brain Reevaluation #2: 05/25/18 18:10 EKG is showing normal sinus rhythm with a rate of 93. There is no abnormal ST 7 changes or T-wave inversions. QTC is 465. Other intervals normal. No ectopy. Disposition Clinical Impression: Cerebrovascular accident Disposition: OTHER INSTITUTION NOT DEFINED Condition: Stable Referrals: Octaviano Noble MD [Primary Care Provider] - 1-2 days - Out of Hospital Transfer - Req. Specs Out of Hospital Transfer - Requested Specifics: Other Emergency Center ([facility])
[2018-05-25 18:26] LABS: INR 0.8 (<1.2)
[2018-05-25 18:27] LABS: ALT 29 U/L (21-72); AST 25 U/L (17-59); Albumin 4.3 g/dL (3.5-5.0); Alkaline Phosphatase 96 U/L (38-126); Anion Gap 11 mmol/L; Blood Urea Nitrogen 11 mg/dL (9-20); Calcium 9.4 mg/dL (8.4-10.2); Carbon Dioxide 27 mmol/L (22-30); Chloride 105 mmol/L (98-107); Glucose 67 mg/dL (74-99); Partial Thromboplastin Time 25.3 sec (22.0-30.0); Potassium 3.6 mmol/L (3.5-5.1); Prothrombin Time 9.4 sec (9.0-12.0); Sodium 143 mmol/L (137-145); Total Bilirubin 0.4 mg/dL (0.2-1.3); Total Protein 6.8 g/dL (6.3-8.2)
[2018-05-25 18:29] LABS: Glucose,Whole Blood 87 mg/dL (75-99)
[2018-05-25 18:30] LABS: Glucose,Whole Blood 87 mg/dL (75-99)
[2018-05-25 18:32] LABS: Glucose,Whole Blood 87 mg/dL (75-99)
[2018-05-25 18:34] LABS: Glucose,Whole Blood 87 mg/dL (75-99)
[2018-05-25 18:36] LABS: Creatine Kinase 79 U/L (55-170)
--- NOTE | 2018-05-25 18:36 | CT ---
EXAMINATION: CT brain wo con for TPA DATE AND TIME: 05/25/2018 6:30 PM CLINICAL INDICATION: PHH; Neuro Deficits TECHNIQUE: Standard departmental protocol.; 1068; COMPARISON: 04/13/2018 FINDINGS: The calvarium is intact. There is no intracranial hemorrhage. There is no intracranial mass or mass effect. Remote infarct high in the right frontal parietal region is redemonstrated. There is no definite new intra-axial attenuation defect. The paranasal sinuses, middle ear cavities, and mastoid sinus air cells are clear. The orbits are unremarkable. IMPRESSION: NO ACUTE PROCESS.
[2018-05-25 18:42] LABS: Basophils % (A) 1 %; Eosinophils # (A) 0.3 k/uL (0-0.7); Eosinophils % (A) 4 %; HCT 43.2 % (39.0-53.0); Lymphocytes # (A) 1.2 k/uL (1.0-4.8); Lymphocytes % (A) 21 %; MCHC 31.6 g/dL (31.0-37.0); MCV 101.4 fL (80.0-100.0); Macrocytosis Slight; Mean Platelet Volume 6.2; Monocytes # (A) 0.4 k/uL (0-1.0); Monocytes % (A) 7 %; Neutrophils # (A) 3.8 k/uL (1.3-7.7); Neutrophils % (A) 64 %; RBC 4.26 m/uL (4.30-5.90); RDW 14.5 % (11.5-15.5)
[2018-05-25 18:43] LABS: HGB 13.6 gm/dL (13.0-17.5); Platelet Count 363 k/uL (150-450)
[2018-05-25 18:49] LABS: Troponin I <0.012 ng/mL (0.000-0.034)
[2018-05-25 18:58] VITALS: RESP 17
--- NOTE | 2018-05-25 19:48 | CT ---
EXAMINATION TYPE: CT angio head neck with contrast and with 3-D reconstruction renderings. DATE OF EXAM: 05/25/2018 HISTORY: Neuro defectis. COMPARISON: CT without contrast 05/25/2017 CT DLP: 311.5 mGycm. Automated Exposure Control for Dose Reduction was Utilized. TECHNIQUE: CTA scan of the neck is performed with IV Contrast, patient injected with 65 mL of Isovue 370, axial images are obtained, coronal and sagittal reformatted images are reviewed. Three-D recons tructed images are created on an independent workstation and reviewed. FINDINGS: NECK CTA: VASCULATURE: There are prominent atherosclerotic calcifications and prominent arterial tortuosity thr oughout the neck. There is prominent atherosclerotic stenosis at the distalmost innominate, at the or igins of the right common carotid artery and right subclavian artery. The right ICA appears occluded at its origin, reconstituting within the foramen lacerum into a tiny caliber intracranial right ICA. The bilateral vertebral arteries show origin stenoses, but are widely patent throughout their extent throughout the neck and intracranially to form the basilar artery. Venous structures are unremarkable. OTHER: Severe bilateral emphysematous changes are noted. BRAIN CTA: The vertebrobasilar system is widely patent without focal stenosis or filling defect or aneurysm. The left ICA has a robust caliber, as does the left MCA. Bilateral CRISPIN are widely patent. The right ICA and MCA are patent, with smaller caliber than the contralateral left. There is a paucity of vasculatu re high over the right frontoparietal region, in the territory of the remote infarction. The anterior circulation is without focal stricture or filling defect or aneurysm. OTHER: Venous dural sinuses are unremarkable. Parenchymal contrast enhancement pattern is unremarkable. IMPRESSION: RIGHT ICA OCCLUSION AT ITS ORIGIN, RECONSTITUTED WITHIN ITS FORAMEN LACERUM.
--- NOTE | 2018-05-25 19:56 | XR ---
EXAMINATION: XR chest 1V portable DATE AND TIME: 05/25/2018 6:48 PM CLINICAL INDICATION: PHH; altered mental status TECHNIQUE: AP upright portable COMPARISON: 03/10/2018 FINDINGS: There is attenuation of upper lobe vasculature and mild cicatrizing change, consistent with emphysema tous changes. The lungs are clear. The pleural spaces are negative. The cardiac silhouette is not enlarged. The remainder of the mediastinal silhouette is unremarkable. The skeletal structures and soft tissues are negative for acute findings. IMPRESSION: NO ACUTE PROCESS.
[2018-05-25 21:01] VITALS: BP 120/85; PULSE 82
== END 2018-05-25 21:15 | disposition other institution (70) ==
LOC: EC 17:45
DX: I63.9 Cerebral infarction, unspecified (principal); R29.706 NIHSS score 6; G43.909 Migraine, unspecified, not intractable, without status migrainosus; G40.909 Epilepsy, unspecified, not intractable, without status epilepticus; J44.9 Chronic obstructive pulmonary disease, unspecified; I10 Essential (primary) hypertension; F17.200 Nicotine dependence, unspecified, uncomplicated; Z99.81 Dependence on supplemental oxygen; Z86.711 Personal history of pulmonary embolism; Z86.718 Personal history of other venous thrombosis and embolism; Z86.73 Personal history of transient ischemic attack (TIA), and cerebral infarction without residual deficits; Z79.02 Long term (current) use of antithrombotics/antiplatelets; Z79.899 Other long term (current) drug therapy; Z88.8 Allergy status to other drugs, medicaments and biological substances; Z88.1 Allergy status to other antibiotic agents
CPT/HCPCS: 36415; 93005; 80053; 82550; 82553; 84484; 85025; 85610; 85730; 71045; 70496; 70450; 70498; 99285; Q9967

== ENCOUNTER 2018-10-27 23:26 | Inpatient (IN) | payer MEDICARE ==
[2018-10-27] MEDS ORDERED: methylPREDNISolone SOD SUCCI 125 MG/2 ML VIAL IV STA (23:42)
[2018-10-27] MEDS ORDERED: IPRATROPIUM-ALBUTEROL 3 ML NEB INHALATION STA (23:42)
[2018-10-27] MEDS ORDERED: SODIUM CHLORIDE 0.9% 500 ML 500 ML IV STA (23:42)
--- NOTE | 2018-10-27 23:46 | ED ---
SOB HPI - General Chief Complaint: Shortness of Breath Stated Complaint: JOANNE Time Seen by Provider: 10/27/18 23:42 Source: patient, EMS, RN notes reviewed Mode of arrival: EMS Limitations: no limitations - History of Present Illness Initial Comments: This is a 57-year-old male history of COPD who is still a smoker who states he had the onset this morning of shortness of breath he's had fevers chills or sweats she's had a cough with yellow phlegm and chest pain this morning also states he has some chest pain now. He was found have a pulse ox of 80% on room air. He was brought in when DuoNeb treatment needed get some relief. He points to the mid sternal area as the area of his chest pain nonspecific pain MD Complaint: shortness of breath, chest pain - Related Data Home Medications Medication Instructions Recorded Confirmed carBAMazepine [TEGretol] 200 mg PO BID 12/22/13 05/25/18 Metoprolol Tartrate [Lopressor] 50 mg PO BID 01/19/17 05/25/18 Gabapentin [Neurontin] 300 mg PO BID 12/07/17 05/25/18 amLODIPine [Norvasc] 10 mg PO DAILY 12/07/17 05/25/18 Meclizine [Antivert] 12.5 mg PO TID 01/06/18 05/25/18 DULoxetine HCL [Cymbalta] 60 mg PO DAILY 04/13/18 05/25/18 FLUoxetine HCL [PROzac] 20 mg PO DAILY 04/13/18 05/25/18 HYDROcodone/APAP 7.5-325MG [[place] 1 tab PO BID PRN 04/13/18 05/25/18 7.5-325] Topiramate [Topamax] 50 mg PO DAILY 04/13/18 05/25/18 Azithromycin [Zithromax Tri-Angel] 500 mg PO DAILY 05/25/18 05/25/18 Baclofen 5 mg PO BID 05/25/18 05/25/18 Clopidogrel Bisulfate [Plavix] 75 mg PO DAILY 05/25/18 05/25/18 tiZANidine HCL [Zanaflex] 2 mg PO TID 05/25/18 05/25/18 Allergies Allergy/AdvReac Type Severity Reaction Status Date / Time varenicline tartrate Allergy Intermediate Rash/Hives Verified 10/27/18 23:31 [From Chantix] ampicillin Allergy Rash/Hives Verified 10/27/18 23:31 Review of Systems ROS Statement: Those systems with pertinent positive or pertinent negative responses have been documented in the HPI. ROS Other: All systems not noted in ROS Statement are negative. 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, CVA with L sided weakness (pt states occured during caratid endartectomy), TIA, bowel obstruction with resection/colostomy and reversal of colostomy, MIGRAINES, bilateral TINNITUS, WAS TOLD 20 YEARS AGO HE HAD ALCOHOLIC HEPATITIS, bilateral GLAUCOMA History of Any Multi-Drug Resistant Organisms: VRE Date of last positivie culture/infection: 06/10/16 MDRO Source:: [id number] Past Surgical History: Bowel Resection, Hernia Repair, Orthopedic Surgery Additional Past Surgical History / Comment(s): Gastric ulcer perforation with repair, EGD/COLONOSCOPY,, JOSIAH KNEE ARTHROSCOPY, abdominal hernia repair. 05/2016 bowel resection d/t obstruction with colostomy then reversal, PICC line, R caratid endartectomy. Past Anesthesia/Blood Transfusion Reactions: Motion Sickness Past Psychological History: No Psychological Hx Reported, Depression Smoking Status: Current every day smoker Past Alcohol Use History: None Reported Past Drug Use History: None Reported - Past Family History Sister(s) Family Medical History: Cancer Additional Family Medical History / Comment(s): SKIN CANCER Mother Family Medical History: Cancer Additional Family Medical History / Comment(s): BREAST Father Additional Family Medical History / Comment(s): YELLOW JAUNDICE, MALARIA FROM WW2, EMPHYSEMA Brother(s) Family Medical History: Cancer Additional Family Medical History / Comment(s): SKIN General Exam - General Exam Comments Initial Comments: A well-developed sec up her mail is awake alert oriented 3 Limitations: no limitations General appearance: alert, anxious, in distress Head exam: Present: atraumatic, normocephalic, normal inspection Eye exam: Present: normal appearance, PERRL, EOMI. Absent: scleral icterus, conjunctival injection, periorbital swelling ENT exam: Present: mucous membranes dry Neck exam: Present: normal inspection. Absent: tenderness, meningismus, lym phadenopathy Respiratory exam: Present: wheezes, accessory muscle use, decreased breath sounds. Absent: respiratory distress, rales, rhonchi, stridor Cardiovascular Exam: Present: regular rate, normal rhythm, normal heart sounds. Absent: systolic murmur, diastolic murmur, rubs, gallop, clicks GI/Abdominal exam: Present: soft, normal bowel sounds. Absent: distended, tenderness, guarding, rebound, rigid Extremities exam: Present: normal inspection, full ROM, normal capillary refill. Absent: tenderness, pedal edema, joint swelling, calf tenderness Back exam: Present: normal inspection Neurological exam: Present: alert, oriented X3, CN II-XII intact Psychiatric exam: Present: normal affect, normal mood Skin exam: Present: warm, dry, intact, normal color. Absent: rash Course Vital Signs 10/27/18 10/28/18 10/28/18 23:27 00:05 00:13 Temperature 98.3 F Pulse Rate 87 80 80 Respiratory 18 20 20 Rate Blood Pressure 153/99 O2 Sat by Pulse 99 Oximetry 10/28/18 10/28/18 00:32 00:34 Temperature Pulse Rate 85 Respiratory 22 22 Rate Blood Pressure 148/89 O2 Sat by Pulse 96 Oximetry - Reevaluation(s) Reevaluation #1: 10/28/18 00:36 She was noted have elevated d-dimer he will get a CAT scan of the chest he has a prior history of PE. Reevaluation #2: 10/28/18 00:51 Reevaluation patient reveals he has some improvement though is very dyspneic still was very diminished breath sounds and diffuse wheezing. Medical Decision Making - Medical Decision Making Rehabilitation several occasions he is getting some minimal improvement the presentation consistent with acute COPD exacerbation right lower lobe pneumonitis. He does have elevated d-dimer and history of PE the CT is pending at this time. - Lab Data Result diagrams: 10/27/18 23:40 10/27/18 23:40 Lab Results 10/27/18 10/27/18 10/27/18 Range/Units 23:40 23:40 23:40 WBC 7.2 (3.8-10.6) k/uL RBC 4.81 (4.30-5.90) m/uL Hgb 14.5 (13.0-17.5) gm/dL Hct 44.7 (39.0-53.0) % MCV 93.0 (80.0-100.0) fL MCH 30.1 (25.0-35.0) pg MCHC 32.4 (31.0-37.0) g/dL RDW 14.2 (11.5-15.5) % Plt Count 304 (150-450) k/uL Neutrophils % 65 % Lymphocytes % 21 % Monocytes % 7 % Eosinophils % 4 % Basophils % 1 % Neutrophils # 4.7 (1.3-7.7) k/uL Lymphocytes # 1.5 (1.0-4.8) k/uL Monocytes # 0.5 (0-1.0) k/uL Eosinophils # 0.3 (0-0.7) k/uL Basophils # 0.0 (0-0.2) k/uL PT 9.6 (9.0-12.0) sec INR 0.9 (<1.2) APTT 23.6 (22.0-30.0) sec D-Dimer 1.05 H (<0.60) mg/L FEU Sodium 137 (137-145) mmol/L Potassium 4.7 (3.5-5.1) mmol/L Chloride 98 (98-107) mmol/L Carbon Dioxide 31 H (22-30) mmol/L Anion Gap 8 mmol/L BUN 19 (9-20) mg/dL Creatinine 0.87 (0.66-1.25) mg/dL Est GFR (CKD-EPI)AfAm >90 (>60 ml/min/1.73 sqM) Est GFR (CKD-EPI)NonAf >90 (>60 ml/min/1.73 sqM) Glucose 108 H (74-99) mg/dL Calcium 9.1 (8.4-10.2) mg/dL Magnesium 2.0 (1.6-2.3) mg/dL Total Bilirubin 0.3 (0.2-1.3) mg/dL AST 21 (17-59) U/L ALT 10 L (21-72) U/L Alkaline Phosphatase 111 (38-126) U/L Creatine Kinase 101 (55-170) U/L Troponin I (0.000-0.034) ng/mL NT-Pro-B Natriuret Pep pg/mL Total Protein 6.8 (6.3-8.2) g/dL Albumin 4.3 (3.5-5.0) g/dL 10/27/18 10/27/18 Range/Units 23:40 23:40 WBC (3.8-10.6) k/uL RBC (4.30-5.90) m/uL Hgb (13.0-17.5) gm/dL Hct (39.0-53.0) % MCV (80.0-100.0) fL MCH (25.0-35.0) pg MCHC (31.0-37.0) g/dL RDW (11.5-15.5) % Plt Count (150-450) k/uL Neutrophils % % Lymphocytes % % Monocytes % % Eosinophils % % Basophils % % Neutrophils # (1.3-7.7) k/uL Lymphocytes # (1.0-4.8) k/uL Monocytes # (0-1.0) k/uL Eosinophils # (0-0.7) k/uL Basophils # (0-0.2) k/uL PT (9.0-12.0) sec INR (<1.2) APTT (22.0-30.0) sec D-Dimer (<0.60) mg/L FEU Sodium (137-145) mmol/L Potassium (3.5-5.1) mmol/L Chloride (98-107) mmol/L Carbon Dioxide (22-30) mmol/L Anion Gap mmol/L BUN (9-20) mg/dL Creatinine (0.66-1.25) mg/dL Est GFR (CKD-EPI)AfAm (>60 ml/min/1.73 sqM) Est GFR (CKD-EPI)NonAf (>60 ml/min/1.73 sqM) Glucose (74-99) mg/dL Calcium (8.4-10.2) mg/dL Magnesium (1.6-2.3) mg/dL Total Bilirubin (0.2-1.3) mg/dL AST (17-59) U/L ALT (21-72) U/L Alkaline Phosphatase (38-126) U/L Creatine Kinase (55-170) U/L Troponin I <0.012 (0.000-0.034) ng/mL NT-Pro-B Natriuret Pep 71 pg/mL Total Protein (6.3-8.2) g/dL Albumin (3.5-5.0) g/dL - EKG Data -: EKG Interpreted by Me EKG shows normal: sinus rhythm (Sinus rhythm rate of 86. Interval 138 QRS duration 80 QT since QTC 372/445 possible left atrial enlargement) - Radiology Data Radiology results: report reviewed (I did review the imaging and report evidence of a right lower lobe infiltrate), image reviewed Critical Care Time Critical Care Time: Yes Critical Care Time: 31 minutes of critical care time which includes initial presentation with history physical labs x-rays discussed with paramedics brought the patient multiple reevaluation patient responsive therapy review of old charting docum entation above and admission orders. Patient will be admitted with Dr. Noble with consultation by Dr. Fajardo Disposition Clinical Impression: Acute exacerbation of chronic obstructive airways disease, Adult respiratory distress syndrome, Right lower lobe pneumonia Disposition: ADMITTED IP TO THIS HOSP Condition: Fair Referrals: Octaviano Noble MD [Primary Care Provider] - 1-2 days
[2018-10-27 23:55] LABS: Basophils % (A) 1 %; Eosinophils # (A) 0.3 k/uL (0-0.7); Eosinophils % (A) 4 %; HCT 44.7 % (39.0-53.0); HGB 14.5 gm/dL (13.0-17.5); Lymphocytes # (A) 1.5 k/uL (1.0-4.8); Lymphocytes % (A) 21 %; MCH 30.1 pg (25.0-35.0); MCHC 32.4 g/dL (31.0-37.0); Mean Platelet Volume 6.9; Monocytes # (A) 0.5 k/uL (0-1.0); Monocytes % (A) 7 %; Neutrophils # (A) 4.7 k/uL (1.3-7.7); Neutrophils % (A) 65 %; Platelet Count 304 k/uL (150-450); RBC 4.81 m/uL (4.30-5.90); RDW 14.2 % (11.5-15.5); WBC 7.2 k/uL (3.8-10.6)
[2018-10-28 00:08] LABS: ALT 10 U/L (21-72); AST 21 U/L (17-59); African American GFR (CKD) >90 (>60 ml/min/1.73 sqM); Albumin 4.3 g/dL (3.5-5.0); Alkaline Phosphatase 111 U/L (38-126); Anion Gap 8 mmol/L; Blood Urea Nitrogen 19 mg/dL (9-20); Calcium 9.1 mg/dL (8.4-10.2); Carbon Dioxide 31 mmol/L (22-30); Chloride 98 mmol/L (98-107); Creatine Kinase 101 U/L (55-170); Glucose 108 mg/dL (74-99); INR 0.9 (<1.2); Non-African American GFR(CKD) >90 (>60 ml/min/1.73 sqM); Partial Thromboplastin Time 23.6 sec (22.0-30.0); Potassium 4.7 mmol/L (3.5-5.1); Prothrombin Time 9.6 sec (9.0-12.0); Sodium 137 mmol/L (137-145); Total Bilirubin 0.3 mg/dL (0.2-1.3); Total Protein 6.8 g/dL (6.3-8.2)
--- NOTE | 2018-10-28 00:13 | XR ---
EXAM: XR Chest, 2 Views CLINICAL HISTORY: ITS.REASON XR Reason: difficulty breathing TECHNIQUE: Frontal and lateral views of the chest. COMPARISON: 05/25/18 IMPRESSION: Normal heart size. Slightly increased opacity in the right lower lobe, possibly infection or atelectasis. No pleural effusion.
[2018-10-28 00:26] LABS: D-Dimer 1.05 mg/L FEU (<0.60)
[2018-10-28] MEDS ORDERED: IPRATROPIUM-ALBUTEROL 3 ML NEB INHALATION STA (00:29)
[2018-10-28] MEDS: SODIUM CHLORIDE 0.9% 1,000 ML IV STA ×2 (00:32→06:26)
[2018-10-28] MEDS ORDERED: LEVOFLOXACIN 750MG-D5W PMX 750 MG in DEXTROSE/WATER 1 150ML.BAG IVPB STA (00:50)
[2018-10-28] MEDS ORDERED: PNEUMONIA PROTOCOL UTILIZED 1 EACH MISC PO PRN (01:03)
--- NOTE | 2018-10-28 01:05 | CT ---
EXAM: CT Angiography Chest With Intravenous Contrast CLINICAL HISTORY: ITS.REASON CT Reason: Pain TECHNIQUE: Axial computed tomographic angiography images of the chest with intravenous contrast using pulmonary embolism protocol. CTDI is 5 mGy and DLP is 221 mGy-cm. This CT exam was performed using one or more of the following dose reduction techniques: automated exposure control, adjustment of the mA and/or kV according to patient size, and/or use of iterative reconstruction technique. MIP reconstructed images were created and reviewed. COMPARISON: CT abdomen 12/07/17 FINDINGS: Pulmonary arteries: No filling defects. Aorta: No thoracic aortic aneurysm. Lungs: No mass. No consolidation. Mild left and moderate right upper lung centrilobular emphysema, seen previously. Mild airway thickening. Centrilobular groundglass nodules in the right lower lobe. Pleural space: No pneumothorax. No significant effusion. Heart: No cardiomegaly. No pericardial effusion. Bones/joints: No acute fracture or dislocation. Soft tissues: Mild hiatal hernia. Lymph nodes: No enlarged lymph nodes. IMPRESSION: 1. No pulmonary embolism. 2. Bilateral centrilobular emphysema, worse on the right. 3. mild airway thickening, likely representing airway disease. 4. Cluster of groundglass centrilobular nodules in the right lower lobe, possibly infectious or inflammatory in etiology.
[2018-10-28] MEDS: HYDROcodone/APAP 7.5-325MG 1 EACH TAB PO PRN ×3 (03:37→21:52)
[2018-10-28] MEDS: IPRATROPIUM-ALBUTEROL 3 ML NEB INHALATION SCH ×6 (03:51→23:06)
[2018-10-28] MEDS: methylPREDNISolone SOD SUCCI 125 MG/2 ML VIAL IV SCH ×3 (06:25→18:16)
[2018-10-28] MEDS: SODIUM CHLORIDE 0.9% 1,000 ML IV SCH ×2 (06:27→14:27)
[2018-10-28] MEDS: DULoxetine HCL 60 MG CAPSULE.DR PO SCH (07:48)
[2018-10-28] MEDS: carBAMazepine 200 MG TAB PO SCH ×2 (07:48→21:50)
[2018-10-28] MEDS: FLUoxetine HCL 20 MG CAP PO SCH (07:48)
[2018-10-28] MEDS: CLOPIDOGREL 75 MG TAB PO SCH (07:49)
[2018-10-28] MEDS: MECLIZINE 12.5 MG TAB PO SCH ×3 (07:49→21:51)
[2018-10-28] MEDS: METOPROLOL TARTRATE 50 MG TAB PO SCH ×2 (07:49→21:51)
[2018-10-28] MEDS: TOPIRAMATE 25 MG TAB PO SCH (07:49)
[2018-10-28] MEDS: GABAPENTIN 300 MG CAP PO SCH ×2 (07:49→21:51)
[2018-10-28] MEDS: BACLOFEN 10 MG TAB PO SCH ×2 (07:50→21:49)
[2018-10-28] MEDS: amLODIPine 10 MG TAB PO SCH (07:50)
--- NOTE | 2018-10-28 09:25 | P.CNPUL ---
History of Present Illness Consult date: 10/28/18 Reason for consult: dyspnea, cough, pneumonia Chief complaint: Cough shortness of breath for one day duration History of present illness: This is a 57-year-old with extensive history of smoking and nicotine use also on home oxygen patient has end-stage COPD emphysema continue to smoke, has severe peripheral vascular disease related that including carotid artery stenosis patient require right CEA, he has a stroke with left hemiparesis, he has also 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, patient was in usual state of state of health for last 2 days started having increased difficulty in breathing with shortness of breath and cough and sputum production with those problem decided to come into the hospital after initial course of antibiotics IV fluids is feeling slightly better, his chest x-ray showed right lower lobe pneumonia, patient underwent a computed tomography scan of the chest revealed absence of pulmonary embolism, extensive bilateral emphysema is seen pneumonia seen on the right basal segment, denies any hemoptysis denies any chest pain no bowel or bladder dysfunction strength in the left side has been improving slowly patient is actively leave following PTOT Review of Systems All systems: negative 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, CVA with L sided weakness (pt states occured during caratid endartectomy), TIA, bowel obstruction with resection/colostomy and reversal of colostomy, MIGRAINES, bilateral TINNITUS, WAS TOLD 20 YEARS AGO HE HAD ALCOHOLIC HEPATITIS, bilateral GLAUCOMA History of Any Multi-Drug Resistant Organisms: VRE Date of last positivie culture/infection: 06/10/16 MDRO Source:: [id number] Past Surgical History: Bowel Resection, Hernia Repair, Orthopedic Surgery Additional Past Surgical History / Comment(s): Gastric ulcer perforation with repair, EGD/COLONOSCOPY,, JOSIAH KNEE ARTHROSCOPY, abdominal hernia repair. 05/2016 bowel resection d/t obstruction with colostomy then reversal, PICC line, R caratid endartectomy. Past Anesthesia/Blood Transfusion Reactions: Motion Sickness Past Psychological History: Depression Additional Psychological History / Comment(s): Pt has 1 adult son living with him. Pt is disabled. He has home O2 at 2L/NC at HS and a nebulizer. 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 He gets to [facility] by [employer] bus or cab. Smoking Status: Current every day smoker Past Alcohol Use History: None Reported Additional Past Alcohol Use History / Comment(s): Pt states he started smoking as a teen and is trying to quit-now is down to 2 a day. He states he has hx of alcoholism and occasionally drinks one beer a day with dinner. Past Drug Use History: None Reported - Past Family History Sister(s) Family Medical History: Cancer Additional Family Medical History / Comment(s): SKIN CANCER Mother Family Medical History: Cancer Additional Family Medical History / Comment(s): BREAST Father Additional Family Medical History / Comment(s): YELLOW JAUNDICE, MALARIA FROM WW2, EMPHYSEMA Brother(s) Family Medical History: Cancer Additional Family Medical History / Comment(s): SKIN Medications and Allergies Home Medications Medication Instructions Recorded Confirmed Type carBAMazepine [TEGretol] 200 mg PO BID 12/22/13 10/28/18 History Metoprolol Tartrate [Lopressor] 50 mg PO BID 01/19/17 10/28/18 History Gabapentin [Neurontin] 300 mg PO BID 12/07/17 10/28/18 History amLODIPine [Norvasc] 10 mg PO DAILY 12/07/17 10/28/18 History Meclizine [Antivert] 12.5 mg PO TID 01/06/18 10/28/18 History DULoxetine HCL [Cymbalta] 60 mg PO DAILY 04/13/18 10/28/18 History FLUoxetine HCL [PROzac] 20 mg PO DAILY 04/13/18 10/28/18 History HYDROcodone/APAP 7.5-325MG [[place] 1 tab PO BID PRN 04/13/18 10/28/18 History 7.5-325] Topiramate [Topamax] 50 mg PO DAILY 04/13/18 10/28/18 History Baclofen 5 mg PO BID 05/25/18 10/28/18 History Clopidogrel Bisulfate [Plavix] 75 mg PO DAILY 05/25/18 10/28/18 History tiZANidine HCL [Zanaflex] 2 mg PO TID 05/25/18 10/28/18 History Allergies Allergy/AdvReac Type Severity Reaction Status Date / Time varenicline tartrate Allergy Intermediate Rash/Hives Verified 10/28/18 08:36 [From Chantix] ampicillin Allergy Rash/Hives Verified 10/28/18 08:36 Physical Exam Vitals: Vital Signs Temp Pulse Pulse Resp BP BP Pulse Ox 10/28/18 08:06 97.8 F 99 16 153/84 96 10/28/18 07:41 88 10/28/18 07:32 80 10/28/18 04:05 84 10/28/18 03:51 84 10/28/18 02:45 97.5 F L 99 18 140/84 94 L 10/28/18 01:55 98.5 F 87 139/80 100 10/28/18 01:03 82 22 10/28/18 00:56 85 19 10/28/18 00:34 22 10/28/18 00:32 85 22 148/89 96 10/28/18 00:13 80 20 10/28/18 00:05 80 20 10/27/18 23:27 98.3 F 87 18 153/99 99 Intake and Output 10/27/18 10/28/18 10/28/18 22:59 06:59 14:59 Other: # Voids 1 Weight 68.039 kg - Constitutional General appearance: average body habitus, cooperative, mild distress - Neck Neck: normal ROM Carotids: bilateral: upstroke normal Thyroid: bilateral: normal size - Respiratory Respiratory: right: diminished, rales, bilateral: prolonged expiration, negative: CTA, dullness, rhonchi, wheezing, other (Bilateral poor air entry) - Cardiovascular Rhythm: regular Heart sounds: normal: S1, S2 - Gastrointestinal General gastrointestinal: normal bowel sounds, soft - Neurologic Neurologic: CNII-XII intact - Musculoskeletal Musculoskeletal: gait normal, generalized weakness, left sided weakness - Psychiatric Psychiatric: A&O x's 3, appropriate affect, intact judgment & insight Results - Laboratory Findings CBC and BMP: 10/27/18 23:40 10/27/18 23:40 PT/INR, D-dimer PT 9.6 sec (9.0-12.0) 10/27/18 23:40 INR 0.9 (<1.2) 10/27/18 23:40 D-Dimer 1.05 mg/L FEU (<0.60) H 10/27/18 23:40 Abnormal lab findings: Abnormal Labs 10/27/18 10/27/18 23:40 23:40 D-Dimer 1.05 H Carbon Dioxide 31 H Glucose 108 H ALT 10 L - Diagnostic Findings Chest x-ray: report reviewed, image reviewed CT scan - chest: report reviewed, image reviewed (Finding as noted above) Assessment and Plan Assessment: Right lower lobe community-acquired pneumonia Acute COPD exacerbation Acute on chronic hypoxic hypercapnic respiratory failure Uncontrolled hypertension with hypertensive urgency History of DVT PE in the past Right CVA with the residue of the left hemiparesis Plan: Gentle rehydration Bronchodilators Continue antihypertensive agents Continue Plavix DVT prophylaxis and peptic ulcer disease prophylaxis IV steroids Broad-spectrum antibiotics Further plan of care as per clinical response of the patient Time with Patient: Greater than 30
--- NOTE | 2018-10-28 14:18 | HP ---
HISTORY AND PHYSICAL CHIEF COMPLAINT: Cough, shortness of breath for one day duration, extensive history of smoking, nicotine addiction with COPD exacerbation, peripheral vascular disease, carotid artery stenosis for which he had surgery, had a recent stroke. He had a history of DVT and pulmonary embolism in the past. He came in with chest pain, shortness of breath. CTA shows right lower lobe pneumonia with bilateral severe emphysema. Long-standing history of alcohol and nicotine addiction. PAST MEDICAL HISTORY: As mentioned, seizure, CVA, TIA, pneumonia, tracheobronchitis, bilateral pulmonary embolisms, chronic back pains, prior CVA, bilateral tenderness, migraines, alcoholic hepatitis, glaucoma, VRE. SURGERY: Bowel resection, hernia repair, orthopedic surgery, gastric ulcer perforation, bilateral knee arthroscopy, colonoscopy, abdominal hernia repair, carotid endarterectomy, colostomy with bowel resection, ex-smoker after multiple years of smoking, history of alcoholism. PAST FAMILY HISTORY: Sister has skin cancer. Mother has breast cancer. Father with yellow jaundice, malaria, emphysema. Brother with cancer of the skin. MEDICATIONS: 1. Neurontin 300 b.i.d. 2. Tegretol 200 b.i.d. 3. Lopressor 50 b.i.d. 4. Norvasc 10 mg daily. 5. Antivert 12.5 t.i.d. 6. Fluoxetine 20 daily. 7. Cymbalta 60 mg daily. 8. [place] 7.5 b.i.d. 9. Topamax 50 daily. 10.Baclofen 5 mg b.i.d. 11.Plavix 75 mg daily. 12.Zanaflex 2 mg t.i.d. ALLERGIES: AMPICILLIN and . Temp 97.8, pulse 88 to 90, respiratory rate 16 to 20, blood pressure 130s to 140s/99, O2 94 to 96. CARDIOVASCULAR: S1, S2. LUNGS: Scattered wheeze x4. Decreased breath sounds. Scattered rhonchi. ABDOMEN: Soft, nontender. NECK: Supple, no mass. CONSTITUTIONAL: Alert, oriented x3. NEUROLOGIC: Cranial nerves intact. ASSESSMENT: 1. Right lower lobe community-acquired pneumonia. 2. Chronic obstructive pulmonary disease exacerbation. 3. Acute hypercapnic respiratory failure. 4. Uncontrolled hypertension, hypertensive urgency. 5. History deep venous thrombosis, pulmonary embolism. 6. Right cerebrovascular accident with left hemiparesis, bronchodilators, rehydration anti hypertensive agents. Continue Plavix, DVT prophylaxis, IV steroids, broad-spectrum antibiotics. Please see further orders. MMODL / IJN: [id number] /
[2018-10-29] MEDS: methylPREDNISolone SOD SUCCI 125 MG/2 ML VIAL IV SCH ×5 (01:11→23:07)
[2018-10-29] MEDS: LEVOFLOXACIN 750 MG TAB PO SCH ×2 (01:11→08:14)
[2018-10-29] MEDS: SODIUM CHLORIDE 0.9% 1,000 ML IV SCH ×2 (01:14→16:06)
[2018-10-29] MEDS: IPRATROPIUM-ALBUTEROL 3 ML NEB INHALATION SCH ×6 (03:06→23:38)
--- NOTE | 2018-10-29 07:46 | XR ---
EXAMINATION TYPE: XR chest 2V DATE OF EXAM: 10/29/2018 COMPARISON: 10/28/2018 HISTORY: Pneumonia. TECHNIQUE: Frontal and lateral views of the chest are obtained. FINDINGS: There is pulmonary hyperinflation indicative of underlying COPD with flattening of the rodrigue phragms on the lateral view and biapical lucency. Cardiomediastinal silhouette is within normal limit s although there is hilar prominence suggesting underlying coronary artery hypertension. Strand-like right infrahilar opacity likely represents atelectasis with no convincing consolidation on the latera l view. Osseous structures appear intact. IMPRESSION: 1. Sequela of COPD and strand-like probable right infrahilar atelectasis. 2. Engorgement of the pulmonary artery suggests pulmonary arterial hypertension.
[2018-10-29] MEDS: carBAMazepine 200 MG TAB PO SCH ×2 (08:07→19:45)
[2018-10-29] MEDS: amLODIPine 10 MG TAB PO SCH (08:07)
[2018-10-29] MEDS: HYDROcodone/APAP 7.5-325MG 1 EACH TAB PO PRN ×2 (08:07→19:51)
[2018-10-29] MEDS: DULoxetine HCL 60 MG CAPSULE.DR PO SCH (08:07)
[2018-10-29] MEDS: TOPIRAMATE 25 MG TAB PO SCH (08:07)
[2018-10-29] MEDS: METOPROLOL TARTRATE 50 MG TAB PO SCH ×2 (08:08→19:45)
[2018-10-29] MEDS: FLUoxetine HCL 20 MG CAP PO SCH (08:08)
[2018-10-29] MEDS: GABAPENTIN 300 MG CAP PO SCH ×2 (08:08→19:46)
[2018-10-29] MEDS: BACLOFEN 10 MG TAB PO SCH ×2 (08:08→19:44)
[2018-10-29] MEDS: MECLIZINE 12.5 MG TAB PO SCH ×3 (08:08→19:46)
[2018-10-29] MEDS: CLOPIDOGREL 75 MG TAB PO SCH (08:08)
[2018-10-29] MEDS: guaiFENesin SYRUP 100MG/5ML 200 MG/10 ML CUP PO PRN ×2 (10:10→21:56)
--- NOTE | 2018-10-29 15:42 | P.PN ---
Subjective Progress Note Date: 10/29/18 Principal diagnosis: Right lower lobe community-acquired pneumonia, acute COPD exacerbation, acute on chronic hypoxic respiratory failure, uncontrolled hypertension hypertensive ca rdiovascular disease, history of right-sided CVA with residual left hemiparesis, history of DVT PE 10/29/2018, patient seen and evaluated examined during the rounds respiratory status slightly better patient's cough congestion slightly improved but is still on exertion can short of breath, chest x-ray performed today shows COPD finding changes right-sided infiltrate improved, patient remains on IV steroids breathing treatment antibiotics This is a 57-year-old with extensive history of smoking and nicotine use also on home oxygen patient has end-stage COPD emphysema continue to smoke, has severe peripheral vascular disease related that including carotid artery stenosis patient require right CEA, he has a stroke with left hemiparesis, he has also 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, patient was in usual state of state of health for last 2 days started having increased difficulty in breathing with shortness of breath and cough and sputum production with those problem decided to come into the hospital after initial course of antibiotics IV fluids is feeling slightly better, his chest x-ray showed right lower lobe pneumonia, patient underwent a computed tomography scan of the chest revealed absence of pulmonary embolism, extensive bilateral emphysema is seen pneumonia seen on the right basal segment, denies any hemoptysis denies any chest pain no bowel or bladder dysfunction strength in the left side has been improving slowly patient is actively leave following PTOT Objective - Vital Signs Vital signs: Vital Signs Temp 97.5 F L 10/29/18 14:26 Pulse 86 10/29/18 14:26 Resp 20 10/29/18 14:26 BP 119/78 10/29/18 14:26 Pulse Ox 98 10/29/18 14:26 Intake & Output 10/28/18 10/29/18 10/29/18 18:59 06:59 18:59 Intake Total 540 Balance 540 Intake: Oral 540 Other: Voiding Method Toilet Toilet # Voids 3 3 4 - Exam - Constitutional General appearance: average body habitus, cooperative, mild distress - Neck Neck: normal ROM Carotids: bilateral: upstroke normal Thyroid: bilateral: normal size - Respiratory Respiratory: right: diminished, rales, bilateral: prolonged expiration, negative: CTA, dullness, rhonchi, wheezing, other (Bilateral poor air entry) - Cardiovascular Rhythm: regular Heart sounds: normal: S1, S2 - Gastrointestinal General gastrointestinal: normal bowel sounds, soft - Neurologic Neurologic: CNII-XII intact - Musculoskeletal Musculoskeletal: gait normal, generalized weakness, left sided weakness - Psychiatric Psychiatric: A&O x's 3, appropriate affect, intact judgment & insight - Labs CBC & Chem 7: 10/27/18 23:40 10/27/18 23:40 Labs: Microbiology - Last 24 Hours (Table) 10/28/18 00:19 Blood Culture - Preliminary Blood No Growth after 24 hours Assessment and Plan Assessment: Right lower lobe community-acquired pneumonia Acute COPD exacerbation Acute on chronic hypoxic hypercapnic respiratory failure Uncontrolled hypertension with hypertensive urgency History of DVT PE in the past Right CVA with the residue of the left hemiparesis Plan: Gentle rehydration Bronchodilators Continue antihypertensive agents Continue Plavix DVT prophylaxis and peptic ulcer disease prophylaxis IV steroids Broad-spectrum antibiotics Further plan of care as per clinical response of the patient Time with Patient: Greater than 30
--- NOTE | 2018-10-29 18:12 | P.PN ---
Subjective Progress Note Date: 10/29/18 This is a 57-year-old gentleman admitted with right lower lobe community acquired pneumonia, acute COPD exacerbation, hypoxic respiratory failure, hypertension and multiple other medical issues. Maintained on nebulized bronchodilators, IV steroids, antibiotics, with breathing slowly improving. Chest x-ray reporting COPD changes, atelectasis, improved right-sided infiltrate. Afebrile. Obtain O2 sats in the high 90s on 2 L nasal cannula. Continues on adjusted antihypertensives with blood pressures controlled. Objective - Vital Signs Vital signs: Vital Signs Temp 97.7 F 10/29/18 04:30 Pulse 76 10/29/18 09:14 Resp 20 10/29/18 04:30 BP 133/85 10/29/18 04:30 Pulse Ox 97 10/29/18 04:30 Intake & Output 10/28/18 10/29/18 10/29/18 18:59 06:59 18:59 Intake Total 540 Balance 540 Intake: Oral 540 Other: Voiding Method Toilet # Voids 3 3 - Exam PHYSICAL EXAM: VITAL SIGNS: As above GENERAL: Eating up in bed, no acute distress HEENT: Conjunctivae normal. eyes normal. Oral mucosa dry NECK: No JVD. No thyroid enlargement. No LNs CARDIOVASCULAR: S1, S2 regular.. No murmur RESPIRATION: Breath sounds diminished in the bases. Right basilar crackles. Prolonged expiration, no wheezing. ABDOMEN: Soft, nontender . No guarding. no masses palpable. Bowel sounds heard. LEGS: No edema. no swelling, no clubbing, no cyanosis PSYCHIATRY: Alert and oriented X3, mood and affect normal. NERVOUS SYSTEM: Cranial N 2-12 grossly normal. Chronic left-sided hemiparesis, residual of prior CVA Skin: no lesions, no rash - Labs CBC & Chem 7: 10/27/18 23:40 10/27/18 23:40 Labs: Microbiology - Last 24 Hours (Table) 10/28/18 00:19 Blood Culture - Preliminary Blood No Growth after 24 hours Assessment and Plan Assessment: -Right lower lobe community-acquired pneumonia -Acute COPD exacerbation -Acute on chronic hypoxic, hypercapnic respiratory failure -Hypertensive urgency, now controlled -History of DVT, PE -Right CVA with residual left sided hemiparesis Plan: Continue on current medication regime ,monitoring and symptomatic treatment. GI and DVT prophylaxis in place. Maintain nebulized bronchodilators, antibiotics, steroids and antihypertensives. Closely with pulmonary. Further recommendations to follow. The impression and plan of care has been dictated as directed. : I performed a history and examination of this patient, discussed the same with the dictator. I agree with the dictator's note ,documented as a scribe. Any additional findings or plans will be noted.
[2018-10-29] MEDS: PANTOPRAZOLE 40 MG/10 ML VIAL IVP SCH (19:44)
[2018-10-29] MEDS: LATANOPROST 0.005% OPHTH DROPS 2.5 ML BTL BOTH EYES SCH (19:46)
[2018-10-30] MEDS: IPRATROPIUM-ALBUTEROL 3 ML NEB INHALATION SCH ×5 (03:52→19:52)
[2018-10-30] MEDS: methylPREDNISolone SOD SUCCI 125 MG/2 ML VIAL IV SCH ×3 (05:03→17:24)
[2018-10-30] MEDS: SODIUM CHLORIDE 0.9% 1,000 ML IV SCH (05:04)
[2018-10-30] MEDS: carBAMazepine 200 MG TAB PO SCH ×2 (07:13→20:20)
[2018-10-30] MEDS: METOPROLOL TARTRATE 50 MG TAB PO SCH ×2 (07:13→20:19)
[2018-10-30] MEDS: BACLOFEN 10 MG TAB PO SCH ×2 (07:13→20:20)
[2018-10-30] MEDS: DULoxetine HCL 60 MG CAPSULE.DR PO SCH (07:13)
[2018-10-30] MEDS: amLODIPine 10 MG TAB PO SCH (07:13)
[2018-10-30] MEDS: CLOPIDOGREL 75 MG TAB PO SCH (07:13)
[2018-10-30] MEDS: TOPIRAMATE 25 MG TAB PO SCH (07:13)
[2018-10-30] MEDS: GABAPENTIN 300 MG CAP PO SCH ×2 (07:13→20:20)
[2018-10-30] MEDS: LEVOFLOXACIN 750 MG TAB PO SCH (07:13)
[2018-10-30] MEDS: FLUoxetine HCL 20 MG CAP PO SCH (07:14)
[2018-10-30] MEDS: MECLIZINE 12.5 MG TAB PO SCH ×3 (07:14→22:07)
[2018-10-30] MEDS: PANTOPRAZOLE 40 MG/10 ML VIAL IVP SCH (07:14)
[2018-10-30 08:25] LABS: Basophils % (A) 0 %; Eosinophils # (A) 0.1 k/uL (0-0.7); Eosinophils % (A) 1 %; HCT 43.1 % (39.0-53.0); HGB 13.4 gm/dL (13.0-17.5); Lymphocytes # (A) 0.7 k/uL (1.0-4.8); Lymphocytes % (A) 6 %; MCH 29.8 pg (25.0-35.0); MCV 96.3 fL (80.0-100.0); Mean Platelet Volume 6.6; Monocytes # (A) 0.5 k/uL (0-1.0); Monocytes % (A) 4 %; Neutrophils # (A) 11.4 k/uL (1.3-7.7); Neutrophils % (A) 89 %; Platelet Count 310 k/uL (150-450); RBC 4.48 m/uL (4.30-5.90); RDW 14.2 % (11.5-15.5); WBC 12.7 k/uL (3.8-10.6)
[2018-10-30 08:42] LABS: African American GFR (CKD) >90 (>60 ml/min/1.73 sqM); Anion Gap 7 mmol/L; Blood Urea Nitrogen 17 mg/dL (9-20); Calcium 8.8 mg/dL (8.4-10.2); Carbon Dioxide 30 mmol/L (22-30); Chloride 99 mmol/L (98-107); Glucose 129 mg/dL (74-99); Non-African American GFR(CKD) >90 (>60 ml/min/1.73 sqM); Potassium 4.7 mmol/L (3.5-5.1); Sodium 136 mmol/L (137-145)
[2018-10-30] MEDS: HYDROcodone/APAP 7.5-325MG 1 EACH TAB PO PRN ×2 (09:55→20:19)
--- NOTE | 2018-10-30 11:44 | P.PN ---
Subjective Progress Note Date: 10/30/18 Principal diagnosis: Right lower lobe community-acquired pneumonia, acute COPD exacerbation, acute on chronic hypoxic respiratory failure, uncontrolled hypertension hypertensive ca rdiovascular disease, history of right-sided CVA with residual left hemiparesis, history of DVT PE 10/30/2018, patient seen eval examined during the rounds still have ongoing shortness of breath and cough but slightly improved continued to be short of breath on exertion 10/29/2018, patient seen and evaluated examined during the rounds respiratory status slightly better patient's cough congestion slightly improved but is still on exertion can short of breath, chest x-ray performed today shows COPD finding changes right-sided infiltrate improved, patient remains on IV steroids breathing treatment antibiotics This is a 57-year-old with extensive history of smoking and nicotine use also on home oxygen patient has end-stage COPD emphysema continue to smoke, has severe peripheral vascular disease related that including carotid artery stenosis patient require right CEA, he has a stroke with left hemiparesis, he has also 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, patient was in usual state of state of health for last 2 days started having increased difficulty in breathing with shortness of breath and cough and sputum production with those problem decided to come into the hospital after initial course of antibiotics IV fluids is feeling slightly better, his chest x-ray showed right lower lobe pneumonia, patient underwent a computed tomography scan of the chest revealed absence of pulmonary embolism, extensive bilateral emphysema is seen pneumonia seen on the right basal segment, denies any hemoptysis denies any chest pain no bowel or bladder dysfunction strength in the left side has been improving slowly patient is actively leave following PTOT Objective - Vital Signs Vital signs: Vital Signs Temp 97.7 F 10/30/18 05:53 Pulse 76 10/30/18 09:04 Resp 18 10/30/18 08:00 BP 149/87 10/30/18 05:53 Pulse Ox 90 L 10/30/18 05:53 Intake & Output 10/29/18 10/30/18 10/30/18 18:59 06:59 18:59 Other: Voiding Method Toilet Toilet # Voids 4 1 - Exam - Constitutional General appearance: average body habitus, cooperative, mild distress - Neck Neck: normal ROM Carotids: bilateral: upstroke normal Thyroid: bilateral: normal size - Respiratory Respiratory: right: diminished, rales, bilateral: prolonged expiration, negative: CTA, dullness, rhonchi, wheezing, other (Bilateral poor air entry) - Cardiovascular Rhythm: regular Heart sounds: normal: S1, S2 - Gastrointestinal General gastrointestinal: normal bowel sounds, soft - Neurologic Neurologic: CNII-XII intact - Musculoskeletal Musculoskeletal: gait normal, generalized weakness, left sided weakness - Psychiatric Psychiatric: A&O x's 3, appropriate affect, intact judgment & insight - Labs CBC & Chem 7: 10/30/18 07:57 10/30/18 07:57 Labs: Abnormal Lab Results - Last 24 Hours (Table) 10/30/18 10/30/18 Range/Units 07:57 07:57 WBC 12.7 H (3.8-10.6) k/uL Neutrophils # 11.4 H (1.3-7.7) k/uL Lymphocytes # 0.7 L (1.0-4.8) k/uL Sodium 136 L (137-145) mmol/L Creatinine 0.58 L (0.66-1.25) mg/dL Glucose 129 H (74-99) mg/dL Microbiology - Last 24 Hours (Table) 10/28/18 00:19 Blood Culture - Preliminary Blood No Growth after 48 hours Assessment and Plan Assessment: Right lower lobe community-acquired pneumonia Acute COPD exacerbation Acute on chronic hypoxic hypercapnic respiratory failure Uncontrolled hypertension with hypertensive urgency History of DVT PE in the past Right CVA with the residue of the left hemiparesis Plan: Gentle rehydration Bronchodilators Continue antihypertensive agents Continue Plavix DVT prophylaxis and peptic ulcer disease prophylaxis IV steroids switched to oral 24 hours Broad-spectrum antibiotics Further plan of care as per clinical response of the patient
[2018-10-30] MEDS: guaiFENesin SYRUP 100MG/5ML 200 MG/10 ML CUP PO PRN (22:07)
[2018-10-30] MEDS: LATANOPROST 0.005% OPHTH DROPS 2.5 ML BTL BOTH EYES SCH (22:07)
--- NOTE | 2018-10-31 00:20 | PN ---
PROGRESS NOTE SUBJECTIVE: This is a 57-year-old white male with right lower lobe pneumonia, COPD exacerbation. Remains on IV antibiotics and IV steroids. He is breathing much better. Cardiovascular: S1, S2. Lungs scattered wheeze x4, scattered rhonchi. Hematology negative Homans. Psych: Fair mood and affect. ASSESSMENT: 1. Right lower lobe pneumonia. 2. Chronic obstructive pulmonary disease exacerbation. 3. Acute hypoxemic respiratory distress. Continue with IV antibiotics, IV steroids, updraft treatments. Follow up in the next 24 to 48. MMODL / IJN: [id number] /
[2018-10-31] MEDS: methylPREDNISolone SOD SUCCI 125 MG/2 ML VIAL IV SCH ×4 (00:28→18:18)
[2018-10-31] MEDS: SODIUM CHLORIDE 0.9% 1,000 ML IV SCH (02:55)
[2018-10-31] MEDS: IPRATROPIUM-ALBUTEROL 3 ML NEB INHALATION SCH ×6 (03:26→20:21)
[2018-10-31] MEDS: LEVOFLOXACIN 750 MG TAB PO SCH (07:20)
[2018-10-31] MEDS: GABAPENTIN 300 MG CAP PO SCH ×2 (07:20→21:28)
[2018-10-31] MEDS: DULoxetine HCL 60 MG CAPSULE.DR PO SCH (07:20)
[2018-10-31] MEDS: METOPROLOL TARTRATE 50 MG TAB PO SCH ×2 (07:20→21:28)
[2018-10-31] MEDS: PANTOPRAZOLE 40 MG TABLET PO SCH (07:20)
[2018-10-31] MEDS: TOPIRAMATE 25 MG TAB PO SCH (07:21)
[2018-10-31] MEDS: amLODIPine 10 MG TAB PO SCH (07:21)
[2018-10-31] MEDS: CLOPIDOGREL 75 MG TAB PO SCH (07:21)
[2018-10-31] MEDS: FLUoxetine HCL 20 MG CAP PO SCH (07:21)
[2018-10-31] MEDS: MECLIZINE 12.5 MG TAB PO SCH ×3 (07:21→21:28)
[2018-10-31] MEDS: carBAMazepine 200 MG TAB PO SCH ×2 (07:21→21:28)
[2018-10-31] MEDS: BACLOFEN 10 MG TAB PO SCH ×2 (07:21→21:28)
[2018-10-31] MEDS: HYDROcodone/APAP 7.5-325MG 1 EACH TAB PO PRN ×2 (07:23→21:27)
[2018-10-31] MEDS: guaiFENesin SYRUP 100MG/5ML 200 MG/10 ML CUP PO PRN ×2 (15:59→21:32)
[2018-10-31] MEDS: LATANOPROST 0.005% OPHTH DROPS 2.5 ML BTL BOTH EYES SCH (21:28)
[2018-10-31 22:09] VITALS: RESP 20
[2018-11-01] MEDS: IPRATROPIUM-ALBUTEROL 3 ML NEB INHALATION SCH ×4 (00:03→13:15)
--- NOTE | 2018-11-01 01:12 | PN ---
PROGRESS NOTE 57-year-old white male, right lower lobe pneumonia. Continue treatment with IV antibiotics and IV steroids. Patient is greatly improved. Possible discharge home in the morning. Hematology negative Homans. Psych: Fair mood and affect. GI soft. Lungs are right lower lobe wheeze and rhonchi. ASSESSMENT: 1. Right lower lobe pneumonia. 2. Chronic obstructive pulmonary disease exacerbation. 3. Tracheobronchitis. 4. Hypertension. 5. Acute hypoxemic respiratory distress. Continue current treatments. Follow up in the next 24-48 hours. Patient will be discharged home tomorrow on steroid taper and antibiotics. MMODL / IJN: [id number] /
[2018-11-01] MEDS: SODIUM CHLORIDE 0.9% 1,000 ML IV SCH (05:50)
[2018-11-01] MEDS: methylPREDNISolone SOD SUCCI 125 MG/2 ML VIAL IV SCH ×3 (05:50→12:56)
[2018-11-01 07:04] VITALS: BP 146/89; TEMP 97.9
[2018-11-01] MEDS: GABAPENTIN 300 MG CAP PO SCH (07:11)
[2018-11-01] MEDS: carBAMazepine 200 MG TAB PO SCH (07:12)
[2018-11-01] MEDS: PANTOPRAZOLE 40 MG TABLET PO SCH (07:12)
[2018-11-01] MEDS: DULoxetine HCL 60 MG CAPSULE.DR PO SCH (07:12)
[2018-11-01] MEDS: BACLOFEN 10 MG TAB PO SCH (07:12)
[2018-11-01] MEDS: METOPROLOL TARTRATE 50 MG TAB PO SCH (07:12)
[2018-11-01] MEDS: TOPIRAMATE 25 MG TAB PO SCH (07:13)
[2018-11-01] MEDS: amLODIPine 10 MG TAB PO SCH (07:13)
[2018-11-01] MEDS: FLUoxetine HCL 20 MG CAP PO SCH (07:13)
[2018-11-01] MEDS: MECLIZINE 12.5 MG TAB PO SCH (07:13)
[2018-11-01] MEDS: CLOPIDOGREL 75 MG TAB PO SCH (07:13)
[2018-11-01] MEDS: LEVOFLOXACIN 750 MG TAB PO SCH (07:13)
[2018-11-01] MEDS: HYDROcodone/APAP 7.5-325MG 1 EACH TAB PO PRN (07:16)
--- NOTE | 2018-11-01 07:42 | P.PN ---
Subjective Progress Note Date: 10/31/18 Principal diagnosis: Right lower lobe community-acquired pneumonia, acute COPD exacerbation, acute on chronic hypoxic respiratory failure, uncontrolled hypertension hypertensive ca rdiovascular disease, history of right-sided CVA with residual left hemiparesis, history of DVT PE 10/31/2018, patient seen and evaluated examined during the rounds his shortness of breath has improved still have ongoing cough labs reviewed medications reviewed agree with discharge planning next 24 hours on oral antibiotics and tapering steroids 10/30/2018, patient seen eval examined during the rounds still have ongoing shortness of breath and cough but slightly improved continued to be short of breath on exertion 10/29/2018, patient seen and evaluated examined during the rounds respiratory status slightly better patient's cough congestion slightly improved but is still on exertion can short of breath, chest x-ray performed today shows COPD finding changes right-sided infiltrate improved, patient remains on IV steroids breathing treatment antibiotics This is a 57-year-old with extensive history of smoking and nicotine use also on home oxygen patient has end-stage COPD emphysema continue to smoke, has severe peripheral vascular disease related that including carotid artery stenosis patient require right CEA, he has a stroke with left hemiparesis, he has also 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, patient was in usual state of state of health for last 2 days started having increased difficulty in breathing with shortness of breath and cough and sputum production with those problem decided to come into the hospital after initial course of antibiotics IV fluids is feeling slightly better, his chest x-ray showed right lower lobe pneumonia, patient underwent a computed tomography scan of the chest revealed absence of pulmonary embolism, extensive bilateral emphysema is seen pneumonia seen on the right basal segment, denies any hemoptysis denies any chest pain no bowel or bladder dysfunction strength in the left side has been improving slowly patient is actively leave following PTOT Objective - Vital Signs Vital signs: Vital Signs Temp 97.8 F 10/31/18 21:25 Pulse 88 10/31/18 21:25 Resp 20 10/31/18 21:25 BP 129/76 10/31/18 21:25 Pulse Ox 95 10/31/18 21:25 Intake & Output 10/31/18 10/31/18 11/01/18 06:59 18:59 06:59 Intake Total 400 Balance 400 Intake: Oral 400 Other: Voiding Method Toilet Toilet # Voids 1 4 3 # Bowel Movements 1 - Exam - Constitutional General appearance: average body habitus, cooperative, mild distress - Neck Neck: normal ROM Carotids: bilateral: upstroke normal Thyroid: bilateral: normal size - Respiratory Respiratory: right: diminished, rales, bilateral: prolonged expiration, negative: CTA, dullness, rhonchi, wheezing, other (Bilateral poor air entry) - Cardiovascular Rhythm: regular Heart sounds: normal: S1, S2 - Gastrointestinal General gastrointestinal: normal bowel sounds, soft - Neurologic Neurologic: CNII-XII intact - Musculoskeletal Musculoskeletal: gait normal, generalized weakness, left sided weakness - Psychiatric Psychiatric: A&O x's 3, appropriate affect, intact judgment & insight - Labs CBC & Chem 7: 10/30/18 07:57 10/30/18 07:57 Labs: Microbiology - Last 24 Hours (Table) 10/28/18 00:19 Blood Culture - Preliminary Blood No Growth after 72 hours Assessment and Plan Assessment: Right lower lobe community-acquired pneumonia Acute COPD exacerbation Acute on chronic hypoxic hypercapnic respiratory failure Uncontrolled hypertension with hypertensive urgency History of DVT PE in the past Right CVA with the residue of the left hemiparesis Plan: Gentle rehydration Bronchodilators Continue antihypertensive agents Continue Plavix DVT prophylaxis and peptic ulcer disease prophylaxis IV steroids switched to oral 24 hours Broad-spectrum antibiotics Further plan of care as per clinical response of the patient Time with Patient: Greater than 30
--- NOTE | 2018-11-01 07:44 | P.PN ---
Subjective Progress Note Date: 11/01/18 Principal diagnosis: Right lower lobe community-acquired pneumonia, acute COPD exacerbation, acute on chronic hypoxic respiratory failure, uncontrolled hypertension hypertensive ca rdiovascular disease, history of right-sided CVA with residual left hemiparesis, history of DVT PE 11/01/2018, patient seen eval reexamined during the rounds labs reviewed medications reviewed care plan discussed with the patient his shortness of breath is back to baseline cough is improved patient likely will be discharged later on today 10/31/2018, patient seen and evaluated examined during the rounds his shortness of breath has improved still have ongoing cough labs reviewed medications brayden tolliver agree with discharge planning next 24 hours on oral antibiotics and tapering steroids 10/30/2018, patient seen eval examined during the rounds still have ongoing shortness of breath and cough but slightly improved continued to be short of breath on exertion 10/29/2018, patient seen and evaluated examined during the rounds respiratory status slightly better patient's cough congestion slightly improved but is still on exertion can short of breath, chest x-ray performed today shows COPD finding changes right-sided infiltrate improved, patient remains on IV steroids breathing treatment antibiotics This is a 57-year-old with extensive history of smoking and nicotine use also on home oxygen patient has end-stage COPD emphysema continue to smoke, has severe peripheral vascular disease related that including carotid artery stenosis patient require right CEA, he has a stroke with left hemiparesis, he has also 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, patient was in usual state of state of health for last 2 days started having increased difficulty in breathing with shortness of breath and cough and sputum production with those problem decided to come into the hospital after initial course of antibiotics IV fluids is feeling slightly better, his chest x-ray showed right lower lobe pneumonia, patient underwent a computed tomography scan of the chest revealed absence of pulmonary embolism, extensive bilateral emphysema is seen pneumonia seen on the right basal segment, denies any hemoptysis denies any chest pain no bowel or bladder dysfunction strength in the left side has been improving slowly patient is actively leave following PTOT Objective - Vital Signs Vital signs: Vital Signs Temp 97.9 F 11/01/18 04:30 Pulse 79 11/01/18 04:30 Resp 20 11/01/18 04:30 BP 146/89 11/01/18 04:30 Pulse Ox 96 11/01/18 04:30 Intake & Output 10/31/18 11/01/18 11/01/18 18:59 06:59 18:59 Intake Total 600 Balance 600 Intake: Oral 600 Other: Voiding Method Toilet # Voids 4 3 - Exam - Constitutional General appearance: average body habitus, cooperative, mild distress - Neck Neck: normal ROM Carotids: bilateral: upstroke normal Thyroid: bilateral: normal size - Respiratory Respiratory: right: diminished, rales, bilateral: prolonged expiration, negative: CTA, dullness, rhonchi, wheezing, other (Bilateral poor air entry) - Cardiovascular Rhythm: regular Heart sounds: normal: S1, S2 - Gastrointestinal General gastrointestinal: normal bowel sounds, soft - Neurologic Neurologic: CNII-XII intact - Musculoskeletal Musculoskeletal: gait normal, generalized weakness, left sided weakness - Psychiatric Psychiatric: A&O x's 3, appropriate affect, intact judgment & insight - Labs CBC & Chem 7: 10/30/18 07:57 10/30/18 07:57 Labs: Microbiology - Last 24 Hours (Table) 10/28/18 00:19 Blood Culture - Preliminary Blood No Growth after 96 hours Assessment and Plan Assessment: Right lower lobe community-acquired pneumonia Acute COPD exacerbation Acute on chronic hypoxic hypercapnic respiratory failure Uncontrolled hypertension with hypertensive urgency History of DVT PE in the past Right CVA with the residue of the left hemiparesis Plan: Gentle rehydration Bronchodilators Continue antihypertensive agents Continue Plavix DVT prophylaxis and peptic ulcer disease prophylaxis Agree with discharge planning on oral tapering steroids and oral Broad-spectrum antibiotics Further plan of care as per clinical response of the patient Follow-up as outpatient Time with Patient: Greater than 30
[2018-11-01 09:16] VITALS: PULSE 84
--- NOTE | 2018-11-01 14:21 | P.DS ---
Providers Date of admission: 10/28/18 01:09 Expected date of discharge: 11/01/18 Attending physician: Octaviano Noble Consults: 10/28/18 01:03 Consult Physician Routine Consulting Provider: Sumanth Fajardo Consult Reason/Comments: COPD and pneumonia Do you want consulting provider notified?: Yes, Notify in am [facility] Course: Final Diagnoses: -Right lower lobe community-acquired pneumonia with tracheobronchitis -Acute COPD exacerbation -Acute on chronic hypoxic, hypercapnic respiratory failure -Hypertensive urgency, now controlled -History of DVT, PE -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 Maintained on nebulized bronchodilators, IV steroids, antibiotics, with breathing slowly improving. Chest x-ray reporting COPD changes, atelectasis, improved right-sided infiltrate. Afebrile. Obtain O2 sats in the high 90s on 2 L nasal cannula. Continues on adjusted antihypertensives with blood pressures controlled. Maintained on IV antibiotics, nebulized bronchodilators and IV steroids, significant clinical improvement. Cleared by pulmonary for discharge. Patient is being discharged home in stable condition with guarded prognosis. Exam PHYSICAL EXAM: GENERAL: alert & oriented X3, no acute distress CARDIOVASCULAR: S1, S2 regular.. No murmur RESPIRATION: Breath sounds diminished in the bases. Congestion with fine Right basilar crackles. ABDOMEN: Soft, nontender . No guarding. no masses palpable. Bowel sounds heard. NERVOUS SYSTEM: Cranial N 2-12 grossly normal. Chronic left-sided hemiparesis, residual of prior CVA The impression and plan of care has been dictated as directed. : I performed a history and examination of this patient, discussed the same with the dictator. I agree with the dictator's note ,documented as a scribe. Any additional findings or plans will be noted. Time taken: 35 min Patient Condition at Discharge: Stable Plan - Discharge Summary Discharge Rx Participant: No New Discharge Prescriptions: New Levofloxacin [Levaquin] 750 mg PO DAILY #5 tab Pantoprazole [Protonix] 40 mg PO AC-BRKFST #15 tablet. guaiFENesin SYRUP 100MG/5ML [Robitussin] 200 mg PO Q6H PRN cup PRN Reason: Cough Ipratropium-Albuterol Nebulize [Duoneb 0.5 mg-3 mg/3 ml Soln] 3 ml INHALATION QID #120 ampul.neb Continue carBAMazepine [TEGretol] 200 mg PO BID Metoprolol Tartrate [Lopressor] 50 mg PO BID amLODIPine [Norvasc] 10 mg PO DAILY Gabapentin [Neurontin] 300 mg PO BID Meclizine [Antivert] 12.5 mg PO TID HYDROcodone/APAP 7.5-325MG [[place] 7.5-325] 1 tab PO BID PRN PRN Reason: Pain DULoxetine HCL [Cymbalta] 60 mg PO DAILY Topiramate [Topamax] 50 mg PO DAILY FLUoxetine HCL [PROzac] 20 mg PO DAILY Clopidogrel Bisulfate [Plavix] 75 mg PO DAILY Baclofen 5 mg PO BID tiZANidine HCL [Zanaflex] 2 mg PO TID Discharge Medication List carBAMazepine [TEGretol] 200 mg PO BID 12/22/13 [History] Metoprolol Tartrate [Lopressor] 50 mg PO BID 01/19/17 [History] Gabapentin [Neurontin] 300 mg PO BID 12/07/17 [History] amLODIPine [Norvasc] 10 mg PO DAILY 12/07/17 [History] Meclizine [Antivert] 12.5 mg PO TID 01/06/18 [History] DULoxetine HCL [Cymbalta] 60 mg PO DAILY 04/13/18 [History] FLUoxetine HCL [PROzac] 20 mg PO DAILY 04/13/18 [History] HYDROcodone/APAP 7.5-325MG [[place] 7.5-325] 1 tab PO BID PRN 04/13/18 [History] Topiramate [Topamax] 50 mg PO DAILY 04/13/18 [History] Baclofen 5 mg PO BID 05/25/18 [History] Clopidogrel Bisulfate [Plavix] 75 mg PO DAILY 05/25/18 [History] tiZANidine HCL [Zanaflex] 2 mg PO TID 05/25/18 [History] Ipratropium-Albuterol Nebulize [Duoneb 0.5 mg-3 mg/3 ml Soln] 3 ml INHALATION QID #120 ampul.neb 11/01/18 [Rx] Levofloxacin [Levaquin] 750 mg PO DAILY #5 tab 11/01/18 [Rx] Pantoprazole [Protonix] 40 mg PO AC-BRKFST #15 tablet. 11/01/18 [Rx] guaiFENesin SYRUP 100MG/5ML [Robitussin] 200 mg PO Q6H PRN cup 11/01/18 [Rx] Follow up Appointment(s)/Referral(s): Octaviano Noble MD [Primary Care Provider] - 11/09/18 2:30 pm [facility], [NON-STAFF] - As Needed Sumanth Fajardo MD [STAFF PHYSICIAN] - 1 Week (Please call office to set up appt.) Ambulatory/Diagnostic Orders: Complete Blood Count w/diff [LAB.AMB] Time Frame: 3 Days, Location: None Selected Patient Instructions/Handouts: How to Stop Smoking (DC), Pneumonia (DC) Activity/Diet/Wound Care/Special Instructions: Case management to arrange nebulizer 2 L nasal cannula O2 Cardiac diet Activity as tolerated, up with brace on left lower leg and cane, fall precautions. No smoking, cessation information provided. Discharge Disposition: HOME WITH HOME HEALTH SERVICES
== END 2018-11-01 13:24 | disposition home health service (06) | DRG 193 ==
LOC: SUPCPDRO 23:26 → EC 23:26 → 4MS4W 10-28 01:09
PROVIDERS: ADMIT Family Medicine; ATTEND Family Medicine
DX: J18.9 Pneumonia, unspecified organism (principal); J96.21 Acute and chronic respiratory failure with hypoxia; J96.22 Acute and chronic respiratory failure with hypercapnia; I69.354 Hemiplegia and hemiparesis following cerebral infarction affecting left non-dominant side; J44.0 Chronic obstructive pulmonary disease with (acute) lower respiratory infection; J44.1 Chronic obstructive pulmonary disease with (acute) exacerbation; J98.11 Atelectasis; F17.210 Nicotine dependence, cigarettes, uncomplicated; G40.909 Epilepsy, unspecified, not intractable, without status epilepticus; H40.9 Unspecified glaucoma; I11.9 Hypertensive heart disease without heart failure; I16.0 Hypertensive urgency; I73.9 Peripheral vascular disease, unspecified; Z79.02 Long term (current) use of antithrombotics/antiplatelets; Z79.899 Other long term (current) drug therapy; Z80.3 Family history of malignant neoplasm of breast; Z80.8 Family history of malignant neoplasm of other organs or systems; Z82.5 Family history of asthma and other chronic lower respiratory diseases; Z86.711 Personal history of pulmonary embolism; Z86.718 Personal history of other venous thrombosis and embolism; Z87.11 Personal history of peptic ulcer disease; Z99.81 Dependence on supplemental oxygen; F10.21 Alcohol dependence, in remission; M15.9 Polyosteoarthritis, unspecified; Z87.01 Personal history of pneumonia (recurrent); G89.29 Other chronic pain; M54.9 Dorsalgia, unspecified; Z88.0 Allergy status to penicillin; Z88.8 Allergy status to other drugs, medicaments and biological substances
CPT/HCPCS: 36415; 71046; 71275; 80048; 80053; 82550; 83735; 83880; 84145; 84484; 85025; 85379; 85610; 85730; 87040; 93005; 94640; 94760; 96361; 96365; 96375; 99291

== ENCOUNTER → 2019-01-25 | Outpatient (CLI) | payer MEDICARE ==
--- NOTE | 2019-01-25 14:24 | XR ---
EXAMINATION TYPE: XR ankle complete LT, XR foot complete LT DATE OF EXAM: 01/25/2019 CLINICAL HISTORY: Fall injury January 08, 2019 with pain TECHNIQUE: Frontal, lateral and oblique images of the left ankle and foot are obtained. COMPARISON: Left ankle x-ray December 10, 2014. FINDINGS: There is new acute oblique minimally displaced ( estimated 2 mm) fracture through the late ral malleolus above the ankle mortise with moderate associated soft tissue swelling. Posterior and me dial malleoli are intact. The ankle mortise appears within normal limits. There is no additional acute acute fracture or dislocation evident in the left foot. The joint space s in the left foot are preserved. Overlying soft tissue is unremarkable. IMPRESSION: There is an acute minimally displaced oblique fracture through the lateral malleolus. (W gary type B) (Initial encounter closed type posttraumatic fracture)
== END | disposition home or self-care (01) ==
LOC: RADXRWHC 13:34
PROVIDERS: ATTEND Family Medicine
DX: S82.62XA Displaced fracture of lateral malleolus of left fibula, initial encounter for closed fracture (principal)

== ENCOUNTER 2019-03-23 15:49 | Inpatient (IN) | payer MEDICARE ==
[2019-03-23] MEDS ORDERED: IPRATROPIUM-ALBUTEROL 3 ML NEB INHALATION STA ×3 (16:19→18:18)
[2019-03-23] MEDS ORDERED: SODIUM CHLORIDE 0.9% 1,000 ML IV STA (16:19)
[2019-03-23] MEDS ORDERED: methylPREDNISolone SOD SUCCI 125 MG/2 ML VIAL IV STA (16:19)
[2019-03-23] MEDS ORDERED: MAGNESIUM SULFATE-D5W PMX 1 GM in DEXTROSE/WATER 1 100ML.BAG IVPB STA (16:19)
[2019-03-23] MEDS ORDERED: MORPHINE SULFATE 4 MG/ML SYRINGE IVP STA (16:20)
[2019-03-23] MEDS ORDERED: METOCLOPRAMIDE 5 MG/ML 2 ML VIAL IVP STA (16:22)
[2019-03-23 16:32] LABS: Basophils % (A) 0 %; Eosinophils # (A) 0.1 k/uL (0-0.7); Eosinophils % (A) 1 %; HCT 49.2 % (39.0-53.0); HGB 15.3 gm/dL (13.0-17.5); Lymphocytes % (A) 11 %; MCH 30.1 pg (25.0-35.0); MCHC 31.2 g/dL (31.0-37.0); MCV 96.6 fL (80.0-100.0); Mean Platelet Volume 7.3; Monocytes # (A) 0.5 k/uL (0-1.0); Monocytes % (A) 5 %; Neutrophils # (A) 7.2 k/uL (1.3-7.7); Neutrophils % (A) 80 %; Platelet Count 227 k/uL (150-450); RBC 5.09 m/uL (4.30-5.90); RDW 13.7 % (11.5-15.5)
[2019-03-23 16:43] LABS: ALT 38 U/L (4-49); AST 61 U/L (17-59); African American GFR (CKD) >90 (>60 ml/min/1.73 sqM); Albumin 4.8 g/dL (3.5-5.0); Alkaline Phosphatase 102 U/L (38-126); Anion Gap 14 mmol/L; Blood Urea Nitrogen 18 mg/dL (9-20); Calcium 9.6 mg/dL (8.4-10.2); Carbon Dioxide 30 mmol/L (22-30); Chloride 98 mmol/L (98-107); Glucose 143 mg/dL (74-99); Magnesium 1.9 mg/dL (1.6-2.3); Non-African American GFR(CKD) >90 (>60 ml/min/1.73 sqM); Potassium 4.9 mmol/L (3.5-5.1); Sodium 142 mmol/L (137-145); Total Bilirubin 0.7 mg/dL (0.2-1.3); Total Protein 7.7 g/dL (6.3-8.2)
--- NOTE | 2019-03-23 16:45 | ED ---
SOB HPI - General Chief Complaint: Shortness of Breath Stated Complaint: JOANNE, high heart rate Time Seen by Provider: 03/23/19 15:55 Source: patient Mode of arrival: wheelchair Limitations: physical limitation - History of Present Illness Initial Comments: The patient is a 58-year-old male with past medical history of PE and COPD on 2 L home O2 who presents emergency room with reported shortness of breath. Patient reports onset of symptoms around 3 AM this morning. Admits dyspnea, chills and fever. Has reported cough with yellow sputum production. Denies hemoptysis. Currently his son is at bedside and is a sick contact. Reports that he had to increase his oxygen to 3 L. Has been using his inhalers at home as needed however hasn't had any improvement in his symptoms. Denies any chest pain. No ripping or tearing sensation to his back. Denies any cardiac arrhythmias or coronary disease. Denies any lower extremity edema. No calf pain or swelling. Admits to being on anticoagulation and hasn't missed any doses. Patient has had a good appetite. Denies changes in his bowel or bladder habits. No abdominal pain. Son states that the patient has been drinking more frequently. Patient admits drinking a couple beers last night however nothing excessive or daily. Denies any other drug use. Also reports a headache. States these are frequent after his stroke from 2 years ago. He took a Sprakers at home without improvement in his symptoms. He denies any visual changes, nausea or vomiting. No new unilateral numbness or weakness. There are no other alleviating, precipitating or modifying factors - Related Data Home Medications Medication Instructions Recorded Confirmed Metoprolol Tartrate [Lopressor] 50 mg PO DAILY 01/19/17 03/24/19 Gabapentin [Neurontin] 300 mg PO BID 12/07/17 03/24/19 Meclizine [Antivert] 12.5 mg PO TID 01/06/18 03/24/19 DULoxetine HCL [Cymbalta] 60 mg PO DAILY 04/13/18 03/24/19 FLUoxetine HCL [PROzac] 20 mg PO DAILY 04/13/18 03/24/19 HYDROcodone/APAP 7.5-325MG [Sprakers 1 tab PO BID PRN 04/13/18 03/24/19 7.5-325] Topiramate [Topamax] 50 mg PO DAILY 04/13/18 03/24/19 tiZANidine HCL [Zanaflex] 2 mg PO TID 05/25/18 03/24/19 amLODIPine BESYLATE [Norvasc] 5 mg PO DAILY 03/24/19 03/24/19 Latanoprost Ophth [Xalatan 0.005%] 1 drops BOTH EYES HS 03/25/19 03/25/19 Previous Rx's Medication Instructions Recorded Pantoprazole [Protonix] 40 mg PO DANIELITO-SHIMAFSMarvel #15 tablet. 11/01/18 Allergies Allergy/AdvReac Type Severity Reaction Status Date / Time varenicline tartrate Allergy Intermediate Rash/Hives Verified 03/23/19 19:59 [From Chantix] ampicillin Allergy Rash/Hives Verified 03/23/19 19:59 Review of Systems ROS Statement: Those systems with pertinent positive or pertinent negative responses have been documented in the HPI. ROS Other: All systems not noted in ROS Statement are negative. 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, CVA with L sided weakness (pt states occured during caratid endartectomy), TIA, bowel obstruction with resection/colostomy and reversal of colostomy, MIGRAINES, bilateral TINNITUS, WAS TOLD 20 YEARS AGO HE HAD ALCOHOLIC HEPATITIS, bilateral GLAUCOMA History of Any Multi-Drug Resistant Organisms: VRE Date of last positivie culture/infection: 06/10/16 MDRO Source:: [id number] Past Surgical History: Bowel Resection, Hernia Repair, Orthopedic Surgery Additional Past Surgical History / Comment(s): Gastric ulcer perforation with repair, EGD/COLONOSCOPY,, JOSIAH KNEE ARTHROSCOPY, abdominal hernia repair. 05/2016 bowel resection d/t obstruction with colostomy then reversal, PICC line, R carat id endartectomy. Past Anesthesia/Blood Transfusion Reactions: Motion Sickness Past Psychological History: Depression Smoking Status: Current every day smoker Past Alcohol Use History: None Reported Past Drug Use History: None Reported - Past Family History Sister(s) Family Medical History: Cancer Additional Family Medical History / Comment(s): SKIN CANCER Mother Family Medical History: Cancer Additional Family Medical History / Comment(s): BREAST Father Additional Family Medical History / Comment(s): YELLOW JAUNDICE, MALARIA FROM WW2, EMPHYSEMA Brother(s) Family Medical History: Cancer Additional Family Medical History / Comment(s): SKIN General Exam Limitations: physical limitation General appearance: alert, anxious, in distress Head exam: Present: atraumatic, normocephalic, normal inspection Eye exam: Present: normal appearance, PERRL, EOMI. Absent: scleral icterus, conjunctival injection, periorbital swelling ENT exam: Present: normal exam, mucous membranes moist Neck exam: Present: normal inspection. Absent: tenderness, meningismus, lymphadenopathy Respiratory exam: Present: respiratory distress, wheezes, accessory muscle use, decreased breath sounds. Absent: rales, rhonchi, stridor Cardiovascular Exam: Present: normal rhythm, tachycardia, normal heart sounds. Absent: systolic murmur, diastolic murmur, rubs, gallop, clicks GI/Abdominal exam: Present: soft, normal bowel sounds. Absent: distended, tenderness, guarding, rebound, rigid Extremities exam: Present: normal inspection, full ROM, normal capillary refill. Absent: tenderness, pedal edema, joint swelling, calf tenderness Back exam: Present: normal inspection Neurological exam: Present: alert, oriented X3, CN II-XII intact Psychiatric exam: Present: normal affect, normal mood Skin exam: Present: warm, intact, normal color, diaphoretic. Absent: rash Course Vital Signs 03/23/19 03/23/19 03/23/19 15:55 16:38 16:49 Temperature 97.8 F Pulse Rate 136 H 123 H 124 H Pulse Rate [ Pulse Oximetery ] Respiratory 26 H Rate Blood Pressure 139/93 Blood Pressure [Left Arm] O2 Sat by Pulse 97 Oximetry 03/23/19 03/23/19 03/23/19 17:25 17:35 18:11 Temperature Pulse Rate 120 H 124 H 162 H Pulse Rate [ Pulse Oximetery ] Respiratory 29 H Rate Blood Pressure Blood Pressure [Left Arm] O2 Sat by Pulse 85 L Oximetry 03/23/19 03/23/19 03/23/19 18:19 18:27 18:35 Temperature Pulse Rate 144 H 128 H 125 H Pulse Rate [ Pulse Oximetery ] Respiratory 24 Rate Blood Pressure 156/98 Blood Pressure [Left Arm] O2 Sat by Pulse 98 Oximetry 03/23/19 03/23/19 03/23/19 18:54 19:15 19:20 Temperature Pulse Rate 137 H 133 H 133 H Pulse Rate [ Pulse Oximetery ] Respiratory 18 16 Rate Blood Pressure 128/89 110/91 Blood Pressure [Left Arm] O2 Sat by Pulse 99 99 Oximetry 03/23/19 03/23/19 19:28 20:00 Temperature 98.2 F Pulse Rate 131 H Pulse Rate [ 123 H Pulse Oximetery ] Respiratory 22 Rate Blood Pressure Blood Pressure 133/78 [Left Arm] O2 Sat by Pulse 95 Oximetry Medical Decision Making - Medical Decision Making Upon arrival the patient was placed in room 4. He is hooked up to continuous pulse ox and cardiac monitoring. The patient does have accessory muscle use. He is placed on 4 L of oxygen via nasal cannula and given 2 DuoNeb breathing treatments. Peripheral IV was established and the patient was given 1 g of magnesium and 125 mg of Solu-Medrol. Laboratory studies were conducted. It does demonstrate a d-dimer of 1.49. Lactic acid is 2.6. Influenza A and B are negative. Because of the patient's previous history of PE without anticoagulation I did send him for a CT study which demonstrates no signs of pulmonary embolism. Pulmonary emphysema with no evidence of acute lung disease. I reevaluated the patient and he continues to have increased work of breathing therefore I did place him on BiPAP. Patient sustained on the BiPAP for a period of time and appeared more comfortable. We did have to place a Carter as the thuy thakur was having an issue with urinary retention. States he has had issues with this in the past. He is resting comfortably and I discussed the results with him. I called Dr. Noble who agreed to his admission. I will consult pulmonology. The patient will be transferred to the floor in stable condition - Lab Data Result diagrams: 03/26/19 06:00 03/26/19 06:00 Lab Results 03/23/19 03/23/19 03/23/19 Range/Units 16:24 16:24 16:24 WBC 9.0 (3.8-10.6) k/uL RBC 5.09 (4.30-5.90) m/uL Hgb 15.3 (13.0-17.5) gm/dL Hct 49.2 (39.0-53.0) % MCV 96.6 (80.0-100.0) fL MCH 30.1 (25.0-35.0) pg MCHC 31.2 (31.0-37.0) g/dL RDW 13.7 (11.5-15.5) % Plt Count 227 (150-450) k/uL Neutrophils % 80 % Lymphocytes % 11 % Monocytes % 5 % Eosinophils % 1 % Basophils % 0 % Neutrophils # 7.2 (1.3-7.7) k/uL Lymphocytes # 1.0 (1.0-4.8) k/uL Monocytes # 0.5 (0-1.0) k/uL Eosinophils # 0.1 (0-0.7) k/uL Basophils # 0.0 (0-0.2) k/uL PT 9.5 (9.0-12.0) sec INR 0.9 (<1.2) APTT 26.7 (22.0-30.0) sec D-Dimer 1.49 H (<0.60) mg/L FEU Sodium 142 (137-145) mmol/L Potassium 4.9 (3.5-5.1) mmol/L Chloride 98 (98-107) mmol/L Carbon Dioxide 30 (22-30) mmol/L Anion Gap 14 mmol/L BUN 18 (9-20) mg/dL Creatinine 0.62 L (0.66-1.25) mg/dL Est GFR (CKD-EPI)AfAm >90 (>60 ml/min/1.73 sqM) Est GFR (CKD-EPI)NonAf >90 (>60 ml/min/1.73 sqM) Glucose 143 H (74-99) mg/dL Lactic Ac Sepsis Rflx Plasma Lactic Acid Glen (0.7-2.0) mmol/L Calcium 9.6 (8.4-10.2) mg/dL Magnesium 1.9 (1.6-2.3) mg/dL Total Bilirubin 0.7 (0.2-1.3) mg/dL AST 61 H (17-59) U/L ALT 38 (4-49) U/L Alkaline Phosphatase 102 (38-126) U/L Troponin I (0.000-0.034) ng/mL NT-Pro-B Natriuret Pep pg/mL Total Protein 7.7 (6.3-8.2) g/dL Albumin 4.8 (3.5-5.0) g/dL Influenza Type A RNA (Not Detectd) Influenza Type B (PCR) (Not Detectd) 03/23/19 03/23/19 03/23/19 Range/Units 16:24 16:24 16:24 WBC (3.8-10.6) k/uL RBC (4.30-5.90) m/uL Hgb (13.0-17.5) gm/dL Hct (39.0-53.0) % MCV (80.0-100.0) fL MCH (25.0-35.0) pg MCHC (31.0-37.0) g/dL RDW (11.5-15.5) % Plt Count (150-450) k/uL Neutrophils % % Lymphocytes % % Monocytes % % Eosinophils % % Basophils % % Neutrophils # (1.3-7.7) k/uL Lymphocytes # (1.0-4.8) k/uL Monocytes # (0-1.0) k/uL Eosinophils # (0-0.7) k/uL Basophils # (0-0.2) k/uL PT (9.0-12.0) sec INR (<1.2) APTT (22.0-30.0) sec D-Dimer (<0.60) mg/L FEU Sodium (137-145) mmol/L Potassium (3.5-5.1) mmol/L Chloride (98-107) mmol/L Carbon Dioxide (22-30) mmol/L Anion Gap mmol/L BUN (9-20) mg/dL Creatinine (0.66-1.25) mg/dL Est GFR (CKD-EPI)AfAm (>60 ml/min/1.73 sqM) Est GFR (CKD-EPI)NonAf (>60 ml/min/1.73 sqM) Glucose (74-99) mg/dL Lactic Ac Sepsis Rflx Plasma Lactic Acid Glen 2.6 H* (0.7-2.0) mmol/L Calcium (8.4-10.2) mg/dL Magnesium (1.6-2.3) mg/dL Total Bilirubin (0.2-1.3) mg/dL AST (17-59) U/L ALT (4-49) U/L Alkaline Phosphatase (38-126) U/L Troponin I <0.012 (0.000-0.034) ng/mL NT-Pro-B Natriuret Pep 194 pg/mL Total Protein (6.3-8.2) g/dL Albumin (3.5-5.0) g/dL Influenza Type A RNA (Not Detectd) Influenza Type B (PCR) (Not Detectd) 03/23/19 03/23/19 Range/Units 16:37 16:50 WBC (3.8-10.6) k/uL RBC (4.30-5.90) m/uL Hgb (13.0-17.5) gm/dL Hct (39.0-53.0) % MCV (80.0-100.0) fL MCH (25.0-35.0) pg MCHC (31.0-37.0) g/dL RDW (11.5-15.5) % Plt Count (150-450) k/uL Neutrophils % % Lymphocytes % % Monocytes % % Eosinophils % % Basophils % % Neutrophils # (1.3-7.7) k/uL Lymphocytes # (1.0-4.8) k/uL Monocytes # (0-1.0) k/uL Eosinophils # (0-0.7) k/uL Basophils # (0-0.2) k/uL PT (9.0-12.0) sec INR (<1.2) APTT (22.0-30.0) sec D-Dimer (<0.60) mg/L FEU Sodium (137-145) mmol/L Potassium (3.5-5.1) mmol/L Chloride (98-107) mmol/L Carbon Dioxide (22-30) mmol/L Anion Gap mmol/L BUN (9-20) mg/dL Creatinine (0.66-1.25) mg/dL Est GFR (CKD-EPI)AfAm (>60 ml/min/1.73 sqM) Est GFR (CKD-EPI)NonAf (>60 ml/min/1.73 sqM) Glucose (74-99) mg/dL Lactic Ac Sepsis Rflx Y Plasma Lactic Acid Glen (0.7-2.0) mmol/L Calcium (8.4-10.2) mg/dL Magnesium (1.6-2.3) mg/dL Total Bilirubin (0.2-1.3) mg/dL AST (17-59) U/L ALT (4-49) U/L Alkaline Phosphatase (38-126) U/L Troponin I (0.000-0.034) ng/mL NT-Pro-B Natriuret Pep pg/mL Total Protein (6.3-8.2) g/dL Albumin (3.5-5.0) g/dL Influenza Type A RNA Not Detected (Not Detectd) Influenza Type B (PCR) Not Detected (Not Detectd) - EKG Data EKG Comments: EKG demonstrates a sinus tachycardia with a ventricular rate of 131. VA interval 1:30. QRS 70. QTC of 443. No acute ST segment elevations. There is minimal ST depression in leads 2 and 3 which is likely rate dependent. Critical Care Time Critical Care Time: Yes Critical Care Time: 35 minutes for initiation of bipap due to worsening respiratory distress and management of setting. Disposition Clinical Impression: Acute exacerbation of chronic obstructive airways disease, Lactic acidosis, Tachycardia, Elevated d-dimer Disposition: ADMITTED IP TO THIS HOSP Condition: Serious Is patient prescribed a controlled substance at d/c from ED?: No Decision to Admit Reason: Admit from EC Decision Date: 03/23/19 Decision Time: 18:21
[2019-03-23 16:46] LABS: INR 0.9 (<1.2); Partial Thromboplastin Time 26.7 sec (22.0-30.0); Prothrombin Time 9.5 sec (9.0-12.0)
[2019-03-23 17:05] LABS: D-Dimer 1.49 mg/L FEU (<0.60)
--- NOTE | 2019-03-23 18:33 | CT ---
EXAMINATION TYPE: CT chest angio for PE DATE OF EXAM: 03/23/2019 COMPARISON: 10/28/2018 HISTORY: SOB, chest pain, HX PE, tachycardia. CT DLP: 330.7 mGycm Automated exposure control for dose reduction was used. CONTRAST: Performed with IV Contrast, patient injected with 100 mL of Isovue 370. There are 3-D post processed images. There is moderate diffuse pulmonary emphysema. There is no evidence of a pulmonary mass. Exam limited slightly by motion. There is no pleural effusion. Heart size is normal. There is no pericardial effu aime. There is normal contrast opacification of the pulmonary arteries. There are no filling defects. Thoracic aorta shows no aneurysm or dissection. There is no mediastinal adenopathy. There are no rani r masses. Bony thorax is intact. There is no compression fracture. IMPRESSION: No evidence of pulmonary embolism. Pulmonary emphysema. No evidence of acute lung disease. No signifi cant change compared to old exam.
[2019-03-23] MEDS ORDERED: NALOXONE 0.4 MG/ML 1 ML VIAL IV PRN (18:35)
[2019-03-23] MEDS ORDERED: MORPHINE SULFATE 4 MG/ML SYRINGE IV PRN (18:35)
[2019-03-23] MEDS ORDERED: LIDOCAINE URO-JET JELLY 2% 5 ML KIT URETHRAL ONE (18:45)
[2019-03-23] MEDS: IPRATROPIUM-ALBUTEROL 3 ML NEB INHALATION SCH (19:19)
[2019-03-23] MEDS ORDERED: LEVOFLOXACIN 500MG-D5W PMX 500 MG in DEXTROSE/WATER 1 100ML.BAG IVPB SCH (21:00)
[2019-03-23] MEDS: GABAPENTIN 300 MG CAP PO SCH (21:52)
[2019-03-23] MEDS: carBAMazepine 200 MG TAB PO SCH (21:53)
[2019-03-23] MEDS: HYDROcodone/APAP 7.5-325MG 1 EACH TAB PO PRN (21:53)
[2019-03-23] MEDS: MONTELUKAST 10 MG TAB PO SCH (21:53)
[2019-03-24] MEDS: IPRATROPIUM-ALBUTEROL 3 ML NEB INHALATION SCH ×6 (00:21→19:58)
[2019-03-24] MEDS: HYDROcodone/APAP 7.5-325MG 1 EACH TAB PO PRN (05:56)
[2019-03-24 07:00] LABS: Basophils % (A) 0 %; Eosinophils % (A) 0 %; HCT 43.4 % (39.0-53.0); HGB 13.6 gm/dL (13.0-17.5); Lymphocytes # (A) 0.6 k/uL (1.0-4.8); Lymphocytes % (A) 9 %; MCH 30.3 pg (25.0-35.0); MCHC 31.3 g/dL (31.0-37.0); MCV 96.7 fL (80.0-100.0); Mean Platelet Volume 8.4; Monocytes # (A) 0.3 k/uL (0-1.0); Monocytes % (A) 4 %; Neutrophils # (A) 5.4 k/uL (1.3-7.7); Neutrophils % (A) 86 %; Platelet Count 192 k/uL (150-450); RBC 4.49 m/uL (4.30-5.90); RDW 13.8 % (11.5-15.5); WBC 6.3 k/uL (3.8-10.6)
[2019-03-24 07:08] LABS: ALT 30 U/L (4-49); AST 41 U/L (17-59); African American GFR (CKD) >90 (>60 ml/min/1.73 sqM); Albumin 3.8 g/dL (3.5-5.0); Alkaline Phosphatase 85 U/L (38-126); Anion Gap 5 mmol/L; Blood Urea Nitrogen 12 mg/dL (9-20); Calcium 9.1 mg/dL (8.4-10.2); Carbon Dioxide 31 mmol/L (22-30); Chloride 104 mmol/L (98-107); Glucose 198 mg/dL (74-99); Non-African American GFR(CKD) >90 (>60 ml/min/1.73 sqM); Potassium 4.2 mmol/L (3.5-5.1); Sodium 140 mmol/L (137-145); Total Bilirubin 0.3 mg/dL (0.2-1.3); Total Protein 6.5 g/dL (6.3-8.2)
[2019-03-24] MEDS ORDERED: AZITHROMYCIN 500 MG in SODIUM CHLORIDE 0.9% 250 ML IVPB SCH (09:00)
[2019-03-24] MEDS: BUDESONIDE 0.5 MG/2 ML NEBU INHALATION SCH ×2 (09:02→19:58)
[2019-03-24] MEDS: methylPREDNISolone SOD SUCCI 40 MG/ML 1 ML VIAL IV SCH ×3 (09:43→22:59)
[2019-03-24] MEDS: SODIUM CHLORIDE 0.9% 1,000 ML IV SCH ×2 (09:43→20:18)
[2019-03-24] MEDS: DULoxetine HCL 60 MG CAPSULE.DR PO SCH (09:44)
[2019-03-24] MEDS: amLODIPine 10 MG TAB PO SCH (09:44)
[2019-03-24] MEDS: CLOPIDOGREL 75 MG TAB PO SCH (09:44)
[2019-03-24] MEDS: carBAMazepine 200 MG TAB PO SCH ×2 (09:44→20:14)
[2019-03-24] MEDS: FAMOTIDINE 20 MG TAB PO SCH ×2 (09:45→20:14)
[2019-03-24] MEDS: GABAPENTIN 300 MG CAP PO SCH ×2 (09:45→20:14)
[2019-03-24] MEDS: HEPARIN SODIUM,PORCINE 5,000 UNIT/ML 1 ML VIAL SQ SCH ×2 (09:49→20:14)
--- NOTE | 2019-03-24 10:03 | CONS ---
CONSULTATION Jamil Tomlinson is the 58-year-old male who presented to the ER with a one-day history of increasing shortness of breath. He denied any fever, chills or rigors. He was seen in the ER and did not improve with conservative care and was subsequently admitted for further evaluation and management. PAST MEDICAL HISTORY: His past medical history is positive for previous CVA, history of acute on chronic respiratory failure, tracheobronchitis, bilateral pulmonary emboli, history of seizure disorder, chronic back pain, perforated ulcer with surgical repair, TIA, previous bowel obstruction with colostomy and subsequent reversal, hernia repair, bowel resection. FAMILY HISTORY: Positive for cancer in his sister in form of skin cancer, breast cancer in his mother, jaundice, malaria and emphysema in his father. REVIEW OF SYSTEMS: Noncontributory. SOCIAL HISTORY: Patient is a current every day smoker. Does not drink alcohol excessively. MEDICATIONS: Medications prior to admission were metoprolol, gabapentin, Tegretol, Topamax, Cymbalta, Antivert, Prozac, Zanaflex, Robitussin, Norvasc, Protonix, Levaquin, DuoNeb, [place], Plavix, and baclofen. PHYSICAL EXAMINATION: On physical examination, he was lying in bed. He was quite short of breath. His blood pressure is 110/91, respiratory rate is 16, pulse rate of 133, O2 saturation on 2 L by nasal cannula is 99%. He had been on BiPAP with a FiO2 of 28% with an O2 saturation of 99%. HEENT reveals pupils are equal. Chest reveals decreased breath sounds with prolonged exhalation and expiratory wheeze. Cardiovascular system reveals an S1, S2, tachycardic. Abdomen is soft. There is no pedal edema. LABS: Labs reveal a white count of 9, hemoglobin 15.3. PT and PTT are normal. D-dimer is 1.49. Sodium 142, potassium 4.9, chloride 98, bicarb 30, BUN 18, creatinine 0.62. Glucose is 143. Lactic acid is 2.6, which has come down to 1.2. Influenza A and B are negative. CT scan of the chest was done with contrast which showed no evidence of pulmonary emboli or any acute lung disease. There was evidence of moderate diffuse pulmonary emphysema. IMPRESSION AT THIS TIME: 1. Severe asthma with chronic obstructive pulmonary disease with acute exacerbation. 2. Atrial fibrillation with rapid ventricular response. At this point in time would keep him on IV and aerosolized steroids, GI and DVT prophylaxis, inhaled steroids and montelukast. I would like to thank you for allowing us to care for him. ANTONIA / JULIANN: [id number] /
--- NOTE | 2019-03-24 10:09 | HP ---
HISTORY AND PHYSICAL A 58-year-old white male admitted to the hospital with severe cough, congestion, shortness of breath, failing outpatient treatments and outpatient antibiotics and nebulized treatments. He normally takes 2 L oxygen at home for severe COPD and history of PEs. He admits dyspnea, chills and fever, cough with yellow sputum production. He has elevated lactic acid. Start him on azithromycin, Rocephin. CT of the chest shows no PE. He is currently on 3 L oxygen. His breathing is slightly improved since admission. He has been around large amounts secondhand smoke in his house for many days over the holidays. He had a stroke 2 years ago. Denies any nausea, vomiting. Just cough, congestion, shortness of breath. HOME MEDICATIONS: 1. Tegretol 200 b.i.d. 2. Lopressor 50 b.i.d. 3. Neurontin 300 b.i.d. 4. Norvasc 10 mg daily. 5. Antivert 12.5 t.i.d. 6. Cymbalta 60 daily. 7. Prozac 20 daily. 8. [place] 7.5 b.i.d. 9. Topamax 50 daily. 10.Baclofen 5 mg b.i.d. 11.Plavix 75 daily. ALLERGIES: AMPICILLIN, CHANTIX. 14 POINT REVIEW OF SYSTEMS: Negative except for as mentioned in HPI. 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 History of colostomy with a bowel obstruction, reversal colostomy, bowel resection, hernia repair, orthopedic surgery, gastric ulcer perforation, bilateral knee arthroscopy, abdominal hernia repair, right carotid endarterectomy, PICC line, colostomy then reversal. Smokes, every day smoker. No alcohol. No drugs. FAMILY HISTORY: Sister with skin cancer. Mother with breast cancer. Father with yellow jaundice malaria. Brother with cancer of the skin. Temperature 97.8, pulse is 127 to 130s, respiratory 26 to 35, blood pressure 139/93, O2 is 97 on 3 L. CARDIOVASCULAR: S1, S2. Tachycardic. Lungs show scattered rhonchi and wheeze. Hematology negative Homans. Lungs shows decreased breath sounds, wheezes and rhonchi x4 lung suarez. PSYCH: Fair mood and affect. INTEGUMENT: Dry skin turgor. Dry mucous membranes. Poor skin turgor. OPHTHALMOLOGICAL: Pupils equal, round, reactive to light and accommodation. CONSTITUTIONAL: She is resting, cachectic, short of breath. CAT scan of the lung shows pulmonary emphysema. They gave him some BiPAP in the ER and he felt better. He feels better now than when he was admitted. He had elevated D- dimer in the ER, but CT of the chest was negative for PE. ASSESSMENT: 1. He has lactic acidosis, acute chronic obstructive pulmonary disease exacerbation, probable tracheobronchitis, tachycardia secondary to breathing treatments and tracheobronchitis and chronic obstructive pulmonary disease exacerbation. 2. History of hypertension, history of seizures, history of bowel obstruction, history of nicotine addiction, history of alcoholism. Prognosis is guarded. Add azithromycin and fluids for elevated lactic acid. Continue with the Levaquin, steroids, updraft treatments. Pulmonary consult. MMODL / IJN: [id number] /
[2019-03-24] MEDS: HYDROcodone/APAP 5-325MG 1 EACH TAB PO PRN ×2 (16:00→20:14)
[2019-03-24] MEDS: guaiFENesin SYRUP 100MG/5ML 200 MG/10 ML CUP PO PRN ×2 (16:02→23:01)
--- NOTE | 2019-03-24 17:49 | P.CNPUL ---
History of Present Illness Reason for consult: dyspnea, cough, COPD, hypoxemia Chief complaint: Increased shortness of breath and cough for last 1 week progressive History of present illness: The patient is a 58-year-old male well-known to me with past medical history of PE, 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 Patient reports worsening onset of symptoms around 3 AM this morning. Admits dyspnea, chills and fever. Has reported cough with yellow sputum production, symptoms started somewhere around [place] time, Denies hemoptysis. Reports that he had to increase his oxygen to 3 L. Has been using his inhalers at home more than usual and hasn't had any improvement in his symptoms. Denies any chest pain. No ripping or tearing sensation to his back. Denies any cardiac arrhythmias or coronary disease. Denies any lower extremity edema. No calf pain or swelling. Admits to being on anticoagulation and hasn't missed any doses. Denies changes in his bowel or bladder habits. No abdominal pain. Son states that the patient has been drinking more frequently. Patient admits drinking a couple beers last night however nothing excessive or daily. Denies any other drug use. Also reports a headache. States these are frequent after his stroke from 2 years ago. He did a [place] at home without improvement in his symptoms. He denies any visual changes, nausea or vomiting. No new unilateral numbness or weakness. There are no other alleviating, precipitating or modifying factors, he has a CAT scan in emergency department which is negative for pulmonary embolism has extensive emphysema, No Acute lung disease identified, his labs are significant for elevated lactic acid level of 2.3 which eventually came down to 1.7 Review of Systems All systems: negative 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, CVA with L sided weakness (pt states occured during caratid endartectomy), TIA, bowel obstruction with resection/colostomy and reversal of colostomy, MIGRAINES, bilateral TINNITUS, WAS TOLD 20 YEARS AGO HE HAD ALCOHOLIC HEPATITIS, bilateral GLAUCOMA History of Any Multi-Drug Resistant Organisms: VRE Date of last positivie culture/infection: 06/10/16 MDRO Source:: [id number] Past Surgical History: Bowel Resection, Hernia Repair, Orthopedic Surgery Additional Past Surgical History / Comment(s): Gastric ulcer perforation with repair, EGD/COLONOSCOPY,, JOSIAH KNEE ARTHROSCOPY, abdominal hernia repair. 05/2016 bowel resection d/t obstruction with colostomy then reversal, PICC line, R caratid endartectomy. Past Anesthesia/Blood Transfusion Reactions: Motion Sickness Past Psychological History: Depression Smoking Status: Current every day smoker Past Alcohol Use History: None Reported Past Drug Use History: None Reported - Past Family History Sister(s) Family Medical History: Cancer Additional Family Medical History / Comment(s): SKIN CANCER Mother Family Medical History: Cancer Additional Family Medical History / Comment(s): BREAST Father Additional Family Medical History / Comment(s): YELLOW JAUNDICE, MALARIA FROM WW2, EMPHYSEMA Brother(s) Family Medical History: Cancer Additional Family Medical History / Comment(s): SKIN Medications and Allergies Home Medications Medication Instructions Recorded Confirmed Type Metoprolol Tartrate [Lopressor] 50 mg PO DAILY 01/19/17 03/24/19 History Gabapentin [Neurontin] 300 mg PO BID 12/07/17 03/24/19 History Meclizine [Antivert] 12.5 mg PO TID 01/06/18 03/24/19 History DULoxetine HCL [Cymbalta] 60 mg PO DAILY 04/13/18 03/24/19 History FLUoxetine HCL [PROzac] 20 mg PO DAILY 04/13/18 03/24/19 History HYDROcodone/APAP 7.5-325MG [[place] 1 tab PO BID PRN 04/13/18 03/24/19 History 7.5-325] Topiramate [Topamax] 50 mg PO DAILY 04/13/18 03/24/19 History tiZANidine HCL [Zanaflex] 2 mg PO TID 05/25/18 03/24/19 History Pantoprazole [Protonix] 40 mg PO HARLANFSMarvel #15 tablet. 11/01/18 03/24/19 Rx amLODIPine BESYLATE [Norvasc] 5 mg PO DAILY 03/24/19 03/24/19 History Allergies Allergy/AdvReac Type Severity Reaction Status Date / Time varenicline tartrate Allergy Intermediate Rash/Hives Verified 03/23/19 19:59 [From Chantix] ampicillin Allergy Rash/Hives Verified 03/23/19 19:59 Physical Exam Vitals: Vital Signs Temp Pulse Pulse Resp BP BP Pulse Ox 03/24/19 16:08 100 03/24/19 16:00 98 03/24/19 15:35 103 H 16 147/93 96 03/24/19 11:35 114 H 22 135/80 98 03/24/19 09:30 98.3 F 110 H 18 126/76 93 L 03/24/19 09:15 96 03/24/19 09:02 96 03/24/19 04:45 94 03/24/19 04:35 94 03/24/19 04:00 97.7 F 109 H 20 133/80 96 03/24/19 00:31 102 H 03/24/19 00:21 102 H 03/24/19 00:00 97.6 F 105 H 20 139/87 96 03/23/19 20:52 99 03/23/19 20:00 98.2 F 123 H 22 133/78 95 03/23/19 19:28 131 H 03/23/19 19:20 133 H 03/23/19 19:15 133 H 16 110/91 99 03/23/19 18:54 137 H 18 128/89 99 03/23/19 18:35 125 H 03/23/19 18:27 128 H 03/23/19 18:19 144 H 24 156/98 98 03/23/19 18:11 162 H 29 H 85 L Intake and Output 03/24/19 03/24/19 03/24/19 06:59 14:59 22:59 Intake Total 480 Output Total 300 300 Balance -300 180 Intake: Oral 480 Output: Urine 300 300 Other: Voiding Method Indwelling Catheter Indwelling Catheter Indwelling Catheter Weight 58.6 kg - Constitutional General appearance: average body habitus, cooperative, disheveled, mild distress - EENT Eyes: EOMI, PERRLA, poor dentition, normal appearance Ears: bilateral: normal - Neck Neck: normal ROM Carotids: bilateral: upstroke normal - Respiratory Respiratory: bilateral: diminished, wheezing, prolonged expiration, negative: CTA, dullness, rales, rhonchi - Cardiovascular Rhythm: regular Heart sounds: normal: S1, S2 - Gastrointestinal General gastrointestinal: decreased bowel sounds, distended, soft - Musculoskeletal Musculoskeletal: gait normal, generalized weakness, strength equal bilaterally - Psychiatric Psychiatric: A&O x's 3, appropriate affect, intact judgment & insight Results - Laboratory Findings CBC and BMP: 03/24/19 06:14 03/24/19 06:14 PT/INR, D-dimer PT 9.5 sec (9.0-12.0) 03/23/19 16:24 INR 0.9 (<1.2) 03/23/19 16:24 D-Dimer 1.49 mg/L FEU (<0.60) H 03/23/19 16:24 Abnormal lab findings: Abnormal Labs 03/23/19 03/23/19 03/23/19 16:24 16:24 16:24 Lymphocytes # D-Dimer 1.49 H Carbon Dioxide Creatinine 0.62 L Glucose 143 H Plasma Lactic Acid [place] 2.6 H* AST 61 H 03/24/19 03/24/19 03/24/19 06:14 06:14 06:14 Lymphocytes # 0.6 L D-Dimer Carbon Dioxide 31 H Creatinine 0.53 L Glucose 198 H Plasma Lactic Acid [place] 2.3 H* AST - Diagnostic Findings CT scan - chest: report reviewed, image reviewed Assessment and Plan Assessment: Acute on chronic hypoxic respiratory failure Acute COPD exacerbation Purulent tracheobronchitis History of CVA pulmonary embolism and bowel obstruction due to ischemic bowel Seizure disorder Mood disorder depression EtOH abuse Plan: Supplemental oxygen IV steroids Resume home medication Bronchodilator Broad-spectrum IV antibiotics DVT and peptic ulcer disease prophylaxis Gentle rehydration Further recommendations pending plan of care as per clinical response of the patient Time with Patient: Greater than 30
[2019-03-24] MEDS: MONTELUKAST 10 MG TAB PO SCH (20:14)
[2019-03-24] MEDS: LEVOFLOXACIN 500 MG TAB PO SCH (20:14)
[2019-03-25] MEDS: IPRATROPIUM-ALBUTEROL 3 ML NEB INHALATION SCH ×6 (02:25→19:36)
[2019-03-25] MEDS: HYDROcodone/APAP 5-325MG 1 EACH TAB PO PRN ×5 (03:13→20:40)
[2019-03-25] MEDS: BUDESONIDE 0.5 MG/2 ML NEBU INHALATION SCH ×2 (07:33→19:36)
[2019-03-25] MEDS: methylPREDNISolone SOD SUCCI 40 MG/ML 1 ML VIAL IV SCH ×3 (07:42→23:02)
[2019-03-25] MEDS: carBAMazepine 200 MG TAB PO SCH ×2 (07:43→20:40)
[2019-03-25] MEDS: amLODIPine 10 MG TAB PO SCH (07:43)
[2019-03-25] MEDS: AZITHROMYCIN 500 MG TAB PO SCH (07:43)
[2019-03-25] MEDS: GABAPENTIN 300 MG CAP PO SCH ×2 (07:43→20:40)
[2019-03-25] MEDS: HEPARIN SODIUM,PORCINE 5,000 UNIT/ML 1 ML VIAL SQ SCH ×2 (07:43→20:41)
[2019-03-25] MEDS: FAMOTIDINE 20 MG TAB PO SCH ×2 (07:43→20:40)
[2019-03-25] MEDS: DULoxetine HCL 60 MG CAPSULE.DR PO SCH (07:43)
[2019-03-25] MEDS: CLOPIDOGREL 75 MG TAB PO SCH (07:43)
[2019-03-25] MEDS: guaiFENesin SYRUP 100MG/5ML 200 MG/10 ML CUP PO PRN ×3 (08:11→23:50)
--- NOTE | 2019-03-25 08:46 | P.PN ---
Subjective Progress Note Date: 03/25/19 Principal diagnosis: Acute on chronic hypoxic respiratory failure Acute COPD exacerbation Purulent tracheobronchitis History of CVA pulmonary embolism and bowel obstruction due to ischemic bowel Seizure disorder Mood disorder depression EtOH abuse 03/25/2019, patient seen eval reexamined during the rounds labs reviewed medications reviewed care plan discussed with the patient at length doing slightly better with still very short of breath on activity and exertion, has b een getting breathing treatments and IV steroids along with broad-spectrum antibiotic The patient is a 58-year-old male well-known to me with past medical history of PE, 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 Patient reports worsening onset of symptoms around 3 AM this morning. Admits dyspnea, chills and fever. Has reported cough with yellow sputum production, symptoms started somewhere around [place] time, Denies hemoptysis. Reports that he had to increase his oxygen to 3 L. Has been using his inhalers at home more than usual and hasn't had any improvement in his symptoms. Denies any chest pain. No ripping or tearing sensation to his back. Denies any cardiac arrhythmias or coronary disease. Denies any lower extremity edema. No calf pain or swelling. Admits to being on anticoagulation and hasn't missed any doses. Denies changes in his bowel or bladder habits. No abdominal pain. Son states that the patient has been drinking more frequently. Patient admits drinking a couple beers last night however nothing excessive or daily. Denies any other drug use. Also reports a headache. States these are frequent after his stroke from 2 years ago. He did a [place] at home without improvement in his symptoms. He denies any visual changes, nausea or vomiting. No new unilateral numbness or weakness. There are no other alleviating, precipitating or modifying factors, he has a CAT scan in emergency department which is negative for pulmonary embolism has extensive emphysema, No Acute lung disease identified, his labs are significant for elevated lactic acid level of 2.3 which eventually came down to 1.7 Objective - Vital Signs Vital signs: Vital Signs Temp 98.1 F 03/25/19 07:40 Pulse 127 H 03/25/19 07:53 Resp 16 03/25/19 07:40 BP 142/77 03/25/19 07:40 Pulse Ox 96 03/25/19 07:40 Intake & Output 03/24/19 03/25/19 03/25/19 18:59 06:59 18:59 Intake Total 480 222 Output Total 300 400 Balance 180 -178 Weight 59.3 kg Intake: Oral 480 222 Output: Urine 300 400 Other: Voiding Method Indwelling Catheter Indwelling Catheter # Bowel Movements 1 - Exam - Constitutional General appearance: average body habitus, cooperative, disheveled, mild distress - EENT Eyes: EOMI, PERRLA, poor dentition, normal appearance Ears: bilateral: normal - Neck Neck: normal ROM Carotids: bilateral: upstroke normal - Respiratory Respiratory: bilateral: diminished, wheezing, prolonged expiration, negative: CTA, dullness, rales, rhonchi - Cardiovascular Rhythm: regular Heart sounds: normal: S1, S2 - Gastrointestinal General gastrointestinal: decreased bowel sounds, distended, soft - Musculoskeletal Musculoskeletal: gait normal, generalized weakness, strength equal bilaterally - Psychiatric Psychiatric: A&O x's 3, appropriate affect, intact judgment & insight - Labs CBC & Chem 7: 03/24/19 06:14 03/24/19 06:14 Assessment and Plan Assessment: Acute on chronic hypoxic respiratory failure Acute COPD exacerbation Purulent tracheobronchitis History of CVA pulmonary embolism and bowel obstruction due to ischemic bowel Seizure disorder Mood disorder depression EtOH abuse Plan: Supplemental oxygen IV steroids Resume home medication Bronchodilator Broad-spectrum IV antibiotics DVT and peptic ulcer disease prophylaxis Gentle rehydration Further recommendations pending plan of care as per clinical response of the patient
--- NOTE | 2019-03-25 10:08 | P.PN ---
Subjective Progress Note Date: 03/25/19 This is a 58-year-old gentleman admitted with acute hypoxic respiratory failure, acute COPD exacerbation hospital tracheobronchitis and multiple other medical issues. Maintained on nebulized bronchodilators, steroids and antibiotics with improvement and breathing. Complains of exertional shortness of breath. Evaluated by pulmonary with recommendations noted. Tachycardic, afebrile. No new labs. Objective - Vital Signs Vital signs: Vital Signs Temp 98.1 F 03/25/19 07:40 Pulse 127 H 03/25/19 07:53 Resp 16 03/25/19 07:40 BP 142/77 03/25/19 07:40 Pulse Ox 96 03/25/19 07:40 Intake & Output 03/24/19 03/25/19 03/25/19 18:59 06:59 18:59 Intake Total 480 222 358 Output Total 300 400 Balance 180 -178 358 Weight 59.3 kg Intake: Oral 480 222 358 Output: Urine 300 400 Other: Voiding Method Indwelling Catheter Indwelling Catheter # Bowel Movements 1 - Exam PHYSICAL EXAM: VITAL SIGNS: [As above] GENERAL: Sitting up in bed, no acute distress HEENT: Conjunctivae normal. eyes normal. Poor dentition. Oral mucosa moist. NECK: No JVD. No thyroid enlargement. No LNs CARDIOVASCULAR: S1, S2 regular. Tachycardic, No murmur RESPIRATION: Breath sounds diminished in the bases. No rhonchi or crackles. Prolonged expiratory wheezing. ABDOMEN: Soft, nontender. No guarding. no masses palpable. Bowel sounds heard. LEGS: No edema NERVOUS SYSTEM: No focal deficits. Skin: no rash - Labs CBC & Chem 7: 03/24/19 06:14 03/24/19 06:14 Assessment and Plan Assessment: Acute COPD exacerbation with purulent tracheobronchitis Acute on chronic hypoxic respiratory failure secondary to the above, status post BiPAP Emphysema as per CT Hypertension History of CVA History of PE, no evidence of PE reported per CTA. History of seizure disorder Nicotine dependence History of alcoholism, daily alcohol consumption Depression, history of Plan: Continue on current medication regime ,monitoring and symptomatic treatment. Maintain nebulized bronchodilators, IV steroids, antibiotics. Follow closely with pulmonary. Increase ambulation as tolerated. GI prophylaxis with Pepcid and DVT prophylaxis with heparin subcu in place. The impression and plan of care has been dictated as directed. : I performed a history and examination of this patient, discussed the same with the dictator. I agree with the dictator's note ,documented as a scribe. Any additional findings or plans will be noted.
[2019-03-25] MEDS: SODIUM CHLORIDE 0.9% 1,000 ML IV SCH ×2 (10:13→22:59)
[2019-03-25 12:01] LABS: Glucose,Whole Blood 138 mg/dL (75-99)
[2019-03-25 16:47] LABS: Glucose,Whole Blood 156 mg/dL (75-99)
[2019-03-25 20:32] LABS: Glucose,Whole Blood 174 mg/dL (75-99)
[2019-03-25] MEDS: LEVOFLOXACIN 500 MG TAB PO SCH (20:40)
[2019-03-25] MEDS: MONTELUKAST 10 MG TAB PO SCH (20:40)
[2019-03-25] MEDS: LATANOPROST 0.005% OPHTH DROPS 2.5 ML BTL BOTH EYES SCH (20:41)
[2019-03-26] MEDS: IPRATROPIUM-ALBUTEROL 3 ML NEB INHALATION SCH ×6 (01:25→20:08)
[2019-03-26 06:27] LABS: Glucose,Whole Blood 154 mg/dL (75-99)
[2019-03-26 06:31] LABS: Basophils # (A) 0.1 k/uL (0-0.2); Basophils % (A) 0 %; Eosinophils % (A) 0 %; HGB 13.4 gm/dL (13.0-17.5); Lymphocytes % (A) 8 %; MCH 30.6 pg (25.0-35.0); MCHC 31.1 g/dL (31.0-37.0); MCV 98.5 fL (80.0-100.0); Mean Platelet Volume 7.4; Monocytes # (A) 0.6 k/uL (0-1.0); Monocytes % (A) 4 %; Neutrophils # (A) 10.9 k/uL (1.3-7.7); Neutrophils % (A) 86 %; Platelet Count 260 k/uL (150-450); RBC 4.37 m/uL (4.30-5.90); RDW 13.8 % (11.5-15.5); WBC 12.7 k/uL (3.8-10.6)
[2019-03-26 06:49] LABS: African American GFR (CKD) >90 (>60 ml/min/1.73 sqM); Anion Gap 7 mmol/L; Blood Urea Nitrogen 20 mg/dL (9-20); Calcium 8.9 mg/dL (8.4-10.2); Carbon Dioxide 31 mmol/L (22-30); Chloride 101 mmol/L (98-107); Glucose 140 mg/dL (74-99); Non-African American GFR(CKD) >90 (>60 ml/min/1.73 sqM); Potassium 4.4 mmol/L (3.5-5.1); Sodium 139 mmol/L (137-145)
[2019-03-26] MEDS: BUDESONIDE 0.5 MG/2 ML NEBU INHALATION SCH ×2 (08:34→20:08)
[2019-03-26] MEDS: guaiFENesin SYRUP 100MG/5ML 200 MG/10 ML CUP PO PRN ×2 (09:24→20:07)
[2019-03-26] MEDS: methylPREDNISolone SOD SUCCI 40 MG/ML 1 ML VIAL IV SCH ×3 (09:24→20:07)
[2019-03-26] MEDS: amLODIPine 10 MG TAB PO SCH (09:24)
[2019-03-26] MEDS: HEPARIN SODIUM,PORCINE 5,000 UNIT/ML 1 ML VIAL SQ SCH (09:24)
[2019-03-26] MEDS: HYDROcodone/APAP 5-325MG 1 EACH TAB PO PRN ×2 (09:25→20:08)
[2019-03-26] MEDS: CLOPIDOGREL 75 MG TAB PO SCH (09:25)
[2019-03-26] MEDS: FAMOTIDINE 20 MG TAB PO SCH ×2 (09:25→20:07)
[2019-03-26] MEDS: DULoxetine HCL 60 MG CAPSULE.DR PO SCH (09:25)
[2019-03-26] MEDS: carBAMazepine 200 MG TAB PO SCH ×2 (09:25→20:07)
[2019-03-26] MEDS: GABAPENTIN 300 MG CAP PO SCH ×2 (09:25→20:07)
[2019-03-26] MEDS: AZITHROMYCIN 500 MG TAB PO SCH (09:25)
[2019-03-26] MEDS: SODIUM CHLORIDE 0.9% 1,000 ML IV SCH (10:29)
[2019-03-26 11:36] LABS: Glucose,Whole Blood 120 mg/dL (75-99)
[2019-03-26] MEDS ORDERED: DILTIAZEM DRIP BOLUS FROM BAG 1 MG SOLN IV ONE (13:43)
[2019-03-26] MEDS ORDERED: HEPARIN SOD,PORK IN 0.45% NACL 25,000 UNIT in 0.45% NACL 1 250ML.BAG IV SCH (13:45)
[2019-03-26] MEDS: DILTIAZEM 125 MG in SODIUM CHLORIDE 0.9% 100 ML IV SCH (14:17)
--- NOTE | 2019-03-26 16:05 | P.PN ---
Subjective Progress Note Date: 03/26/19 Principal diagnosis: Acute on chronic hypoxic respiratory failure Acute COPD exacerbation Purulent tracheobronchitis History of CVA pulmonary embolism and bowel obstruction due to ischemic bowel Seizure disorder Mood disorder depression EtOH abuse 03/26/2019, patient seen and evaluated examined during the rounds labs reviewed medications reviewed patient remains on supplemental oxygen currently patient is on 2 L nasal cannula with oxygen saturation ranging anywhere from 90-98% [place] patient is afebrile with stable hemodynamics, white cell count slightly up to 12,700 likely related to steroids, continue antibiotics, will titrate steroids down as tolerated 03/25/2019, patient seen eval reexamined during the rounds labs reviewed medications reviewed care plan discussed with the patient at length doing slightly better with still very short of breath on activity and exertion, has been getting breathing treatments and IV steroids along with broad-spectrum antibiotic The patient is a 58-year-old male well-known to me with past medical history of PE, 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 Patient reports worsening onset of symptoms around 3 AM this morning. Admits dyspnea, chills and fever. Has reported cough with yellow sputum production, symptoms started somewhere around [place] time, Denies hemoptysis. Reports that he had to increase his oxygen to 3 L. Has been using his inhalers at home more than usual and hasn't had any improvement in his symptoms. Denies any chest pain. No ripping or tearing sensation to his back. Denies any cardiac arrhythmias or coronary disease. Denies any lower extremity edema. No calf pain or swelling. Admits to being on anticoagulation and hasn't missed any doses. Denies changes in his bowel or bladder habits. No abdominal pain. Son states that the patient has been drinking more frequently. Patient admits drinking a couple beers last night however nothing excessive or daily. Denies any other drug use. Also reports a headache. States these are frequent after his stroke from 2 years ago. He did a [place] at home without improvement in his symptoms. He denies any visual changes, nausea or vomiting. No new unilateral numbness or weakness. There are no other alleviating, precipitating or modifying factors, he has a CAT scan in emergency department which is negative for pulmonary embolism has extensive emphysema, No Acute lung disease identified, his labs are significant for elevated lactic acid level of 2.3 which eventually came down to 1.7 Objective - Vital Signs Vital signs: Vital Signs Temp 98.2 F 03/26/19 12:00 Pulse 76 03/26/19 15:46 Resp 18 03/26/19 12:00 BP 118/79 03/26/19 12:00 Pulse Ox 92 L 03/26/19 12:00 Intake & Output 03/25/19 03/26/19 03/26/19 18:59 06:59 18:59 Intake Total 723 222 240 Output Total 1 850 350 Balance 722 -628 -110 Weight 61 kg Intake: IV 10 Sodium Chloride 0.9% 1, 10 000 ml @ 75 mls/hr IV . [id number] COUNT INCLUDES THE [facility] Rx#:[id number] Oral 713 222 240 Output: Urine 850 350 Stool 1 Other: Voiding Method Indwelling Catheter Indwelling Catheter Indwelling Catheter # Bowel Movements 1 - Exam - Constitutional General appearance: average body habitus, cooperative, disheveled, mild distress - EENT Eyes: EOMI, PERRLA, poor dentition, normal appearance Ears: bilateral: normal - Neck Neck: normal ROM Carotids: bilateral: upstroke normal - Respiratory Respiratory: bilateral: diminished, wheezing, prolonged expiration, negative: CTA, dullness, rales, rhonchi - Cardiovascular Rhythm: regular Heart sounds: normal: S1, S2 - Gastrointestinal General gastrointestinal: decreased bowel sounds, distended, soft - Musculoskeletal Musculoskeletal: gait normal, generalized weakness, strength equal bilaterally - Psychiatric Psychiatric: A&O x's 3, appropriate affect, intact judgment & insight - Labs CBC & Chem 7: 03/26/19 06:00 03/26/19 06:00 Labs: Abnormal Lab Results - Last 24 Hours (Table) 03/25/19 03/25/19 03/26/19 Range/Units 16:45 20:31 06:00 WBC 12.7 H (3.8-10.6) k/uL Neutrophils # 10.9 H (1.3-7.7) k/uL Carbon Dioxide (22-30) mmol/L Creatinine (0.66-1.25) mg/dL Glucose (74-99) mg/dL POC Glucose (mg/dL) 156 H 174 H (75-99) mg/dL 03/26/19 03/26/19 03/26/19 Range/Units 06:00 06:26 11:35 WBC (3.8-10.6) k/uL Neutrophils # (1.3-7.7) k/uL Carbon Dioxide 31 H (22-30) mmol/L Creatinine 0.48 L (0.66-1.25) mg/dL Glucose 140 H (74-99) mg/dL POC Glucose (mg/dL) 154 H 120 H (75-99) mg/dL Assessment and Plan Assessment: Acute on chronic hypoxic respiratory failure Acute COPD exacerbation Purulent tracheobronchitis History of CVA pulmonary embolism and bowel obstruction due to ischemic bowel Seizure disorder Mood disorder depression EtOH abuse Plan: Supplemental oxygen IV steroids, start tapering it down Resume home medication Bronchodilator Broad-spectrum antibiotics DVT and peptic ulcer disease prophylaxis Gentle rehydration Further recommendations pending plan of care as per clinical response of the patient Time with Patient: Greater than 30
[2019-03-26] MEDS: LATANOPROST 0.005% OPHTH DROPS 2.5 ML BTL BOTH EYES SCH (20:06)
[2019-03-26] MEDS: MONTELUKAST 10 MG TAB PO SCH (20:07)
[2019-03-26] MEDS: LEVOFLOXACIN 500 MG TAB PO SCH (20:07)
--- NOTE | 2019-03-26 21:16 | PN ---
PROGRESS NOTE 58-year-old white male admitted with acute on chronic hypoxemic respiratory failure secondary to COPD exacerbation, purulent tracheobronchitis, history of CVA, pulmonary embolism, bowel obstruction, seizure disorder, depression, and alcohol abuse. He is sitting up in bed. He feels better. He has less cough and congestion. Went and took a shower, but he went into atrial fibrillation rapid ventricular response today at which time cardiology has been consulted. Will titrate down his steroids as he is improving. Continue his IV antibiotics. Treat for atrial fibrillation with rapid rate ventricular response. Lungs have wheezes x4, diffuse rhonchi x4. Psych: Fair mood and affect. Neurologic: Cranial nerves are intact. Labs reviewed. PLAN: Continue to wean down steroids. Home medicines, bronchodilators. Treat atrial fibrillation rapid ventricular response. Cardiology consult. Please see further orders. MMODL / IJN: [id number] /
[2019-03-27] MEDS: IPRATROPIUM-ALBUTEROL 3 ML NEB INHALATION SCH ×7 (01:28→23:13)
[2019-03-27] MEDS: BUDESONIDE 0.5 MG/2 ML NEBU INHALATION SCH ×2 (07:25→19:16)
[2019-03-27] MEDS: SODIUM CHLORIDE 0.9% 1,000 ML IV SCH ×3 (07:37→22:11)
[2019-03-27] MEDS: DILTIAZEM 125 MG in SODIUM CHLORIDE 0.9% 100 ML IV SCH (07:37)
[2019-03-27] MEDS: carBAMazepine 200 MG TAB PO SCH ×2 (07:46→20:41)
[2019-03-27] MEDS: GABAPENTIN 300 MG CAP PO SCH ×2 (07:46→20:41)
[2019-03-27] MEDS: DULoxetine HCL 60 MG CAPSULE.DR PO SCH (07:46)
[2019-03-27] MEDS: amLODIPine 10 MG TAB PO SCH (07:46)
[2019-03-27] MEDS: CLOPIDOGREL 75 MG TAB PO SCH (07:46)
[2019-03-27] MEDS: methylPREDNISolone SOD SUCCI 40 MG/ML 1 ML VIAL IV SCH ×2 (07:46→20:40)
[2019-03-27] MEDS: FAMOTIDINE 20 MG TAB PO SCH ×2 (07:46→20:41)
[2019-03-27] MEDS: AZITHROMYCIN 500 MG TAB PO SCH (07:46)
[2019-03-27] MEDS: HYDROcodone/APAP 5-325MG 1 EACH TAB PO PRN ×2 (07:51→20:53)
[2019-03-27] MEDS: guaiFENesin SYRUP 100MG/5ML 200 MG/10 ML CUP PO PRN (07:51)
--- NOTE | 2019-03-27 09:05 | P.CRDCN ---
History of Present Illness Consult date: 03/27/19 Requesting physician: Octaviano Noble Consult reason: atrial fibrillation Chief complaint: Shortness of breath, cough History of present illness: This is a 58-year-old gentleman who has history of prior stroke in 2017, COPD, prior PE and DVT, history of nicotine dependence, patient continues to smoke, he also has a history of significant EtOH abuse, and depression. He presented to the hospital with symptoms of progressively worsening shortness of breath. Patient also states that he was having fever and chills at home, coughing up dark yellow sputum. He came to the hospital for further evaluation and treatment. According to the documentation, the son had stated that the patient has been drinking a lot more alcohol than usual as well. CTA of the chest was performed on arrival here which did not reveal evidence of pulmonary embolism, it did show emphysema. His EKG on presentation here showed a sinus tachycardia, subsequent EKG showed atrial fibrillation with rapid ventricular response. Patient was initiated on IV heparin and IV Cardizem, he continues to be in atrial fibrillation this morning. Blood pressure this morning 120/68 with a heart rate in the 90s, 93% on room air. White blood cell count 12.7, hemoglobin 13.4, platelet count 260. Sodium 139, potassium 4.4, BUN 20, creatinine 0.4. Magnesium 1.9, troponin 0.012. TSH 2.3. Influenza A and B were negative. Cardiology consultation was requested for atrial fibrillation. At the time of my examination this morning, patient continues to have significant productive cough of dark yellow sputum. He still states that he feels quite short of breath, denies any chest discomfort, no palpitations. I did explain to the patient, that he will need to be on oral anticoagulation for stroke prevention, he has already had one stroke in the past. Patient will be higher risk than usual because of his significant use of alcohol. 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, CVA with L sided weakness (pt states occured during caratid endartectomy), TIA, bowel obstruction with resection/colostomy and reversal of colostomy, MIGRAINES, bilateral TINNITUS, WAS TOLD 20 YEARS AGO HE HAD ALCOHOLIC HEPATITIS, bilateral GLAUCOMA History of Any Multi-Drug Resistant Organisms: VRE Date of last positivie culture/infection: 06/10/16 MDRO Source:: [id number] Past Surgical History: Bowel Resection, Hernia Repair, Orthopedic Surgery Additional Past Surgical History / Comment(s): Gastric ulcer perforation with repair, EGD/COLONOSCOPY,, JOSIAH KNEE ARTHROSCOPY, abdominal hernia repair. 05/2016 bowel resection d/t obstruction with colostomy then reversal, PICC line, R caratid endartectomy. Past Anesthesia/Blood Transfusion Reactions: Motion Sickness Past Psychological History: Depression Smoking Status: Current every day smoker Past Alcohol Use History: None Reported Past Drug Use History: None Reported - Past Family History Sister(s) Family Medical History: Cancer Additional Family Medical History / Comment(s): SKIN CANCER Mother Family Medical History: Cancer Additional Family Medical History / Comment(s): BREAST Father Additional Family Medical History / Comment(s): YELLOW JAUNDICE, MALARIA FROM WW2, EMPHYSEMA Brother(s) Family Medical History: Cancer Additional Family Medical History / Comment(s): SKIN Medications and Allergies Home Medications Medication Instructions Recorded Confirmed Type Metoprolol Tartrate [Lopressor] 50 mg PO DAILY 01/19/17 03/24/19 History Gabapentin [Neurontin] 300 mg PO BID 12/07/17 03/24/19 History Meclizine [Antivert] 12.5 mg PO TID 01/06/18 03/24/19 History DULoxetine HCL [Cymbalta] 60 mg PO DAILY 04/13/18 03/24/19 History FLUoxetine HCL [PROzac] 20 mg PO DAILY 04/13/18 03/24/19 History HYDROcodone/APAP 7.5-325MG [[place] 1 tab PO BID PRN 04/13/18 03/24/19 History 7.5-325] Topiramate [Topamax] 50 mg PO DAILY 04/13/18 03/24/19 History tiZANidine HCL [Zanaflex] 2 mg PO TID 05/25/18 03/24/19 History Pantoprazole [Protonix] 40 mg PO [facility] [email or web address]] #15 tablet.dr 11/01/18 03/24/19 Rx amLODIPine BESYLATE [Norvasc] 5 mg PO DAILY 03/24/19 03/24/19 History Latanoprost Ophth [Xalatan 0.005%] 1 drops BOTH EYES HS 03/25/19 03/25/19 History Allergies Allergy/AdvReac Type Severity Reaction Status Date / Time varenicline tartrate Allergy Intermediate Rash/Hives Verified 03/23/19 19:59 [From Chantix] ampicillin Allergy Rash/Hives Verified 03/23/19 19:59 Physical Exam Vitals: Vital Signs Temp Pulse Pulse Resp BP Pulse Ox 03/27/19 07:44 98.1 F 59 L 18 121/69 93 L 03/27/19 07:39 112 H 03/27/19 07:27 108 H 03/27/19 04:38 111 H 03/27/19 04:25 111 H 03/27/19 04:00 98.0 F 144 H 18 110/74 97 03/27/19 01:48 117 H 03/27/19 01:29 116 H 03/27/19 00:00 98.1 F 124 H 18 109/69 98 03/26/19 20:25 116 H 03/26/19 20:10 113 H 03/26/19 20:00 98.1 F 138 H 20 111/68 95 03/26/19 16:00 97.8 F 151 H 18 91/63 100 03/26/19 15:46 76 03/26/19 15:38 72 03/26/19 12:00 98.2 F 71 18 118/79 92 L 03/26/19 11:32 113 H 03/26/19 11:23 115 H Intake and Output 03/26/19 03/27/19 03/27/19 22:59 06:59 14:59 Intake Total 409.166 945.14 Output Total 350 Balance 59.166 945.14 Intake: IV 900 Sodium Chloride 0.9% 1, 900 000 ml @ 75 mls/hr IV . [id number] [facility] Rx#:[id number] Intake, IV Titration 49.166 45.14 Amount Heparin Sod,Pork in 0.45% 49.166 45.14 NaCl 25,000 unit In 0.45 % NaCl 1 250ml.bag @ 12 UNITS/KG/HR 7.32 mls/hr IV .Q24H EMILY Rx#: [id number] Oral 360 Output: Urine 350 Other: Voiding Method Indwelling Catheter Indwelling Catheter # Voids 1 # Bowel Movements 1 Weight 59 kg PHYSICAL EXAMINATION: GENERAL: 58-year-old gentleman in no acute distress at the time of my examination HEENT: Head is atraumatic, normocephalic. Pupils equal, round. Sclera anicteric. Conjunctiva are clear. Mucous membranes of the mouth are moist. Neck is supple. There is no elevated jugular venous pressure. No carotid bruit is heard. HEART EXAMINATION: Heart S1 and S2 irregularly irregular CHEST EXAMINATION: His reveal coarse scattered rhonchi throughout. ABDOMEN: Soft, nontender. Bowel sounds are heard. No organomegaly noted. EXTREMITIES: 1+ peripheral pulses with no evidence of peripheral edema and no calf tenderness noted. NEUROLOGIC patient is awake, alert and oriented 3. . Results 03/26/19 06:00 03/26/19 06:00 Coagulation 03/26/19 03/27/19 Range/Units 19:47 02:38 APTT 97.2 H 93.4 H (22.0-30.0) sec Current Medications Generic Name Dose Route Start Last Admin Trade Name Freq PRN Reason Stop Dose Admin Hydrocodone Bitart/Acetaminophen 1 each 03/24/19 15:46 03/27/19 07:51 [place] 5-325 PO 1 each Q4HR PRN Administration Pain Albuterol/Ipratropium 3 ml 03/23/19 20:00 03/27/19 07:25 Duoneb 0.5 Mg-3 Mg/3 Ml Soln INHALATION 3 ml RT-Q4H EMILY Administration Amlodipine Besylate 10 mg 03/24/19 09:00 03/27/19 07:46 Norvasc PO 10 mg DAILY EMILY Administration Azithromycin 500 mg 03/25/19 09:00 03/27/19 07:46 Zithromax PO 500 mg DAILY EMILY Administration Budesonide 0.5 mg 03/24/19 08:00 03/27/19 07:25 Pulmicort INHALATION 0.5 mg RT-BID EMILY Administration Carbamazepine 200 mg 03/23/19 21:00 03/27/19 07:46 Tegretol PO 200 mg BID EMILY Administration Clopidogrel Bisulfate 75 mg 03/24/19 09:00 03/27/19 07:46 Plavix PO 75 mg DAILY EMILY Administration Duloxetine HCl 60 mg 03/24/19 09:00 03/27/19 07:46 Cymbalta PO 60 mg DAILY EMILY Administration Famotidine 20 mg 03/24/19 09:00 03/27/19 07:46 Pepcid PO 20 mg BID EMILY Administration Gabapentin 300 mg 03/23/19 21:00 03/27/19 07:46 Neurontin PO 300 mg BID EMILY Administration Guaifenesin 200 mg 03/24/19 15:44 03/27/19 07:51 Robitussin PO 200 mg Q6H PRN Administration Cough Sodium Chloride 1,000 mls @ 75 mls/hr 03/24/19 08:00 03/27/19 07:37 Saline 0.9% IV Not Given .[id number] EMILY Diltiazem HCl 125 mg/ Sodium 125 mls @ 10 mls/hr 03/26/19 13:45 03/27/19 07:37 Chloride IV Not Given .[id number] EMILY 10 MG/HR Heparin Sodium/Sodium Chloride 250 mls @ 7.32 mls/hr 03/26/19 13:45 03/27/19 04:10 25,000 unit/ Sodium Chloride IV 10 units/kg/hr .Q24H EMILY 6.1 mls/hr Titration Protocol 12 UNITS/KG/HR Latanoprost 1 drops 03/25/19 21:00 03/26/19 20:06 Xalatan 0.005% BOTH EYES 1 drops HS EMILY Administration Levofloxacin 500 mg 03/24/19 21:00 03/26/19 20:07 Levaquin PO 500 mg HS EMILY Administration Methylprednisolone Sodium Succinate 40 mg 03/26/19 21:00 03/27/19 07:46 Solu-Medrol IV 40 mg Q12HR EMILY Administration Montelukast Sodium 10 mg 03/23/19 21:30 03/26/19 20:07 Singulair PO 10 mg HS EMILY Administration Morphine Sulfate 4 mg 03/23/19 18:35 Morphine Sulfate (Inj) IV Q4HR PRN Severe Pain Naloxone HCl 0.2 mg 03/23/19 18:35 Narcan IV Q2M PRN Opioid Reversal Intake and Output 03/26/19 03/27/19 03/27/19 22:59 06:59 14:59 Intake Total 409.166 945.14 Output Total 350 Balance 59.166 945.14 Intake: IV 900 Sodium Chloride 0.9% 1, 900 000 ml @ 75 mls/hr IV . [id number] EMILY Rx#:[id number] Intake, IV Titration 49.166 45.14 Amount Heparin Sod,Pork in 0.45% 49.166 45.14 NaCl 25,000 unit In 0.45 % NaCl 1 250ml.bag @ 12 UNITS/KG/HR 7.32 mls/hr IV .Q24H EMILY Rx#: [id number] Oral 360 Output: Urine 350 Other: Voiding Method Indwelling Catheter Indwelling Catheter # Voids 1 # Bowel Movements 1 Weight 59 kg 03/26/19 06:00 03/26/19 06:00 EKG Interpretations (text) Initial EKG on presentation here showed a sinus tachycardia, subsequent EKG showed atrial fibrillation with a rapid ventricular response. Assessment and Plan Plan: Assessment and plan #1 COPD exacerbation with acute purulent tracheobronchitis. #2 atrial fibrillation with rapid ventricular response, appears to be of new onset for the patient, paroxysmal #3 history of CVA #4 history of pulmonary embolism and DVT #5 history of seizure disorder #6 nicotine dependence #7 moderate to severe COPD #8 EtOH abuse #9 depression #10 hypertension Plan We will obtain an echocardiogram with Doppler study. We did already obtain a TSH which came back to be normal. We will discontinue the IV Cardizem and start the patient verapamil, discontinue the Norvasc, we will also start the patient on oral anticoagulation and discontinue the heparin. Further recommendations to follow. DNP note has been reviewed, I agree with a documented findings and plan of care. Patient was seen and examined.
[2019-03-27] MEDS: VERAPAMIL 80 MG TAB PO SCH ×3 (09:17→20:41)
[2019-03-27] MEDS: RIVAROXABAN 20 MG TAB PO SCH (15:46)
--- NOTE | 2019-03-27 17:02 | PN ---
PROGRESS NOTE 58-year-old white male with history of prior stroke, COPD, prior PE and DVT, history of nicotine addiction, continues to smoke and significant alcohol abuse and has history of depression and worsening shortness of breath. He is admitted with severe COPD exacerbation and tracheobronchitis. He has been in atrial fibrillation with rapid ventricular response. He has been started on IV heparin and Cardizem drip. His white count is 2.7, hemoglobin is 13.4, sodium 139, potassium 4.4, magnesium 1.9, TSH 2.3. Troponins negative. Influenza A and B were negative. He remains on Cardizem drip at this time. His breathing is greatly improved since admission. He continues to improve on a daily basis. He says it is about 30-40 percent better from when he was admitted is all. Pulse rate is in the 100s to 150 range, respiratory rate 18 to 22. Blood pressure 110 to 120s over 60s to 70s. Lungs show scattered rhonchi and wheeze. Hematology negative Homans. Psych: Fair mood and affect. He is sitting up, has dyspnea while eating but is improving. ASSESSMENT: 1. Chronic obstructive pulmonary disease exacerbation. 2. Purulent tracheobronchitis. 3. Atrial fibrillation, rapid ventricular response. 4. Acute hypoxemic respiratory failure. 5. History of cerebrovascular accident. 6. Deep vein thrombosis. 7. Pulmonary embolism. 8. Nicotine addiction. 9. Alcohol abuse. 10.Depression. 11.Hypertension. 12.Severe nicotine exposure at home. Echo and Doppler have been ordered. Possibly switch Cardizem to verapamil and discontinue Norvasc for hypertension. He has been started on oral anticoagulation and heparin will be stopped. We will have to monitor him for bleeding on his anticoagulants. MMODL / IJN: [id number] /
[2019-03-27] MEDS: LEVOFLOXACIN 500 MG TAB PO SCH (20:41)
[2019-03-27] MEDS: LATANOPROST 0.005% OPHTH DROPS 2.5 ML BTL BOTH EYES SCH (20:41)
[2019-03-27] MEDS: MONTELUKAST 10 MG TAB PO SCH (20:41)
[2019-03-28] MEDS: IPRATROPIUM-ALBUTEROL 3 ML NEB INHALATION SCH ×5 (03:53→19:53)
[2019-03-28] MEDS: HYDROcodone/APAP 5-325MG 1 EACH TAB PO PRN ×3 (04:09→23:36)
[2019-03-28 06:22] LABS: Basophils % (A) 0 %; Eosinophils % (A) 0 %; HCT 41.5 % (39.0-53.0); Lymphocytes % (A) 9 %; MCH 30.5 pg (25.0-35.0); MCHC 31.2 g/dL (31.0-37.0); MCV 97.6 fL (80.0-100.0); Mean Platelet Volume 7.5; Monocytes # (A) 0.5 k/uL (0-1.0); Monocytes % (A) 5 %; Neutrophils # (A) 8.6 k/uL (1.3-7.7); Neutrophils % (A) 84 %; Platelet Count 271 k/uL (150-450); RBC 4.25 m/uL (4.30-5.90); RDW 13.7 % (11.5-15.5); WBC 10.2 k/uL (3.8-10.6)
[2019-03-28 06:34] LABS: ALT 22 U/L (4-49); AST 21 U/L (17-59); African American GFR (CKD) >90 (>60 ml/min/1.73 sqM); Albumin 3.3 g/dL (3.5-5.0); Alkaline Phosphatase 72 U/L (38-126); Anion Gap 6 mmol/L; Blood Urea Nitrogen 22 mg/dL (9-20); Calcium 8.9 mg/dL (8.4-10.2); Carbon Dioxide 29 mmol/L (22-30); Chloride 103 mmol/L (98-107); Glucose 139 mg/dL (74-99); Non-African American GFR(CKD) >90 (>60 ml/min/1.73 sqM); Potassium 5.2 mmol/L (3.5-5.1); Sodium 138 mmol/L (137-145); Total Bilirubin 0.3 mg/dL (0.2-1.3); Total Protein 5.7 g/dL (6.3-8.2)
[2019-03-28] MEDS: guaiFENesin SYRUP 100MG/5ML 200 MG/10 ML CUP PO PRN ×3 (07:57→23:36)
[2019-03-28] MEDS: VERAPAMIL 80 MG TAB PO SCH ×3 (08:01→21:12)
[2019-03-28] MEDS: FAMOTIDINE 20 MG TAB PO SCH ×2 (08:01→21:12)
[2019-03-28] MEDS: carBAMazepine 200 MG TAB PO SCH ×2 (08:01→21:11)
[2019-03-28] MEDS: DULoxetine HCL 60 MG CAPSULE.DR PO SCH (08:01)
[2019-03-28] MEDS: methylPREDNISolone SOD SUCCI 40 MG/ML 1 ML VIAL IV SCH ×2 (08:01→21:11)
[2019-03-28] MEDS: AZITHROMYCIN 500 MG TAB PO SCH (08:01)
[2019-03-28] MEDS: GABAPENTIN 300 MG CAP PO SCH ×2 (08:01→21:12)
[2019-03-28] MEDS: CLOPIDOGREL 75 MG TAB PO SCH (08:01)
[2019-03-28] MEDS: BUDESONIDE 0.5 MG/2 ML NEBU INHALATION SCH ×2 (08:39→19:53)
--- NOTE | 2019-03-28 11:31 | P.PN ---
Subjective Progress Note Date: 03/28/19 This is a 58-year-old gentleman who has history of prior stroke in 2017, COPD, prior PE and DVT, history of nicotine dependence, patient continues to smoke, he also has a history of significant EtOH abuse, and depression. He presented to the hospital with symptoms of progressively worsening shortness of breath. Patient also states that he was having fever and chills at home, coughing up dark yellow sputum. He came to the hospital for further evaluation and treatment. According to the documentation, the son had stated that the patient has been drinking a lot more alcohol than usual as well. CTA of the chest was performed on arrival here which did not reveal evidence of pulmonary embolism, it did show emphysema. His EKG on presentation here showed a sinus tachycardia, subsequent EKG showed atrial fibrillation with rapid ventricular response. Patient was initiated on IV heparin and IV Cardizem, he continues to be in atrial fibrillation this morning. Blood pressure this morning 120/68 with a heart rate in the 90s, 93% on room air. White blood cell count 12.7, hemoglobin 13.4, platelet count 260. Sodium 139, potassium 4.4, BUN 20, creatinine 0.4. Magnesium 1.9, troponin 0.012. TSH 2.3. Influenza A and B were negative. Cardiology consultation was requested for atrial fibrillation. At the time of my examination this morning, patient continues to have significant productive cough of dark yellow sputum. He still states that he feels quite short of breath, denies any chest discomfort, no palpitations. I did explain to the patient, that he will need to be on oral anticoagulation for stroke prevention, he has already had one stroke in the past. Patient will be h igher risk than usual because of his significant use of alcohol. 03/28/2019 Patient was seen and examined this morning, overall doing well. He is tachycardic this morning, he is in a sinus tachycardia.blood pressure 124/80, 98% on 3 L of oxygen.White blood cell count 10.2, hemoglobin 13, platelet count 271. Sodium 138, potassium 5.2, BUN 22, creatinine 0.6. Objective - Vital Signs Vital signs: Vital Signs Temp 97.9 F 03/28/19 07:56 Pulse 122 H 03/28/19 10:05 Resp 20 03/28/19 10:05 BP 124/81 03/28/19 10:05 Pulse Ox 98 03/28/19 08:42 Intake & Output 03/27/19 03/28/19 03/28/19 18:59 06:59 18:59 Intake Total 600 720 240 Output Total 575 Balance 600 145 240 Weight 59.2 kg Intake: Oral 600 720 240 Output: Urine 575 Other: Voiding Method Indwelling Catheter Indwelling Catheter Indwelling Catheter - Exam PHYSICAL EXAMINATION: GENERAL: 58-year-old gentleman in no acute distress at the time of my examination HEENT: Head is atraumatic, normocephalic. Pupils equal, round. Sclera anicteric. Conjunctiva are clear. Mucous membranes of the mouth are moist. Neck is supple. There is no elevated jugular venous pressure. No carotid bruit is heard. HEART EXAMINATION: Heart S1 and [id number], tachycardic CHEST EXAMINATION: His reveal coarse scattered rhonchi throughout. ABDOMEN: Soft, nontender. Bowel sounds are heard. No organomegaly noted. EXTREMITIES: 1+ peripheral pulses with no evidence of peripheral edema and no calf tenderness noted. NEUROLOGIC patient is awake, alert and oriented 3. - Labs CBC & Chem 7: 03/28/19 05:42 03/28/19 05:42 Labs: Abnormal Lab Results - Last 24 Hours (Table) 03/28/19 03/28/19 Range/Units 05:42 05:42 RBC 4.25 L (4.30-5.90) m/uL Neutrophils # 8.6 H (1.3-7.7) k/uL Potassium 5.2 H (3.5-5.1) mmol/L BUN 22 H (9-20) mg/dL Creatinine 0.60 L (0.66-1.25) mg/dL Glucose 139 H (74-99) mg/dL Total Protein 5.7 L (6.3-8.2) g/dL Albumin 3.3 L (3.5-5.0) g/dL Assessment and Plan Plan: Assessment and plan #1 COPD exacerbation with acute purulent tracheobronchitis. #2 atrial fibrillation with rapid ventricular response, appears to be of new onset for the patient, paroxysmal #3 history of CVA #4 history of pulmonary embolism and DVT #5 history of seizure disorder #6 nicotine dependence #7 moderate to severe COPD #8 EtOH abuse #9 depression #10 hypertension Plan We will review the echocardiogram with Doppler study. We did already obtain a TSH which came back to be normal. we will add metoprolol 25 mg one tablet by mouth twice a day to his medication regime. DNP note has been reviewed, I agree with a documented findings and plan of care. Patient was seen and examined.
--- NOTE | 2019-03-28 11:34 | ECHOF ---
Referral Reason:sinus tachycaradia MEASUREMENTS -------- HEIGHT: 175.3 cm WEIGHT: 59.0 kg BP: 115/72 IVSd: 1.0 cm (0.6 - 1.1) LVIDd: 3.9 cm (3.9 - 5.3) LVPWd: 1.2 cm (0.6 - 1.1) IVSs: 1.8 cm LVIDs: 2.6 cm LVPWs: 1.5 cm Ao Diam: 2.9 cm (2.0 - 3.7) AV Cusp: 2.0 cm (1.5 - 2.6) LA Diam: 3.0 cm (2.7 - 3.8) MV EXCURSION: 8.330 mm (> 18.000) MV EF SLOPE: 41 mm/s (70 - 150) EPSS: 1.4 cm MV E Jesus: 1.15 m/s MV DecT: 61 ms MV A Jesus: 0.64 m/s MV E/A Ratio: 1.80 RAP: 5.00 mmHg RVSP: 12.42 mmHg FINDINGS -------- Resting tachycardia (HR>100bpm). This was a technically difficult study with suboptimal views. Parasternal and apical views unable to be obtained. Entire study performed from subcostal window. The left ventricular size is normal. There is mild concentric left ventricular hypertrophy. Overa ll left ventricular systolic function is normal with, an EF between 60 - 65 %. The right ventricle is normal in size. The left atrial size is normal. The right atrial size is normal. The aortic valve is trileaflet and appears structurally normal. The mitral valve is normal. The mitral valve leaflets are mildly thickened. There is trace mitral regurgitation. The tricuspid valve appears structurally normal. Trace tricuspid regurgitation present. Right aixa tricular systolic pressure is normal at < 35 mmHg. There is no pulmonic regurgitation present. The aortic root size is normal. Normal inferior vena cava with normal inspiratory collapse consistent with estimated right atrial pre ssure of 5 mmHg. There is a small, generalized pericardial effusion present. CONCLUSIONS -------- 1. Resting tachycardia (HR>100bpm). 2. This was a technically difficult study with suboptimal views. 3. Parasternal and apical views unable to be obtained. Entire study performed from subcostal window. 4. The left ventricular size is normal. 5. There is mild concentric left ventricular hypertrophy. 6. Overall left ventricular systolic function is normal with, an EF between 60 - 65 %. 7. The right ventricle is normal in size. 8. The left atrial size is normal. 9. The right atrial size is normal. 10. The aortic valve is trileaflet and appears structurally normal. 11. The mitral valve is normal. 12. The mitral valve leaflets are mildly thickened. 13. There is trace mitral regurgitation. 14. The tricuspid valve appears structurally normal. 15. Trace tricuspid regurgitation present. 16. Right ventricular systolic pressure is normal at < 35 mmHg. 17. There is no pulmonic regurgitation present. 18. The aortic root size is normal. 19. Normal inferior vena cava with normal inspiratory collapse consistent with estimated right atrial pressure of 5 mmHg. 20. There is a small, generalized pericardial effusion present. COMMUNITY RELATIONS REP: Denita Mcneil RDCS
[2019-03-28] MEDS: METOPROLOL TARTRATE 25 MG TAB PO SCH ×2 (11:42→21:12)
--- NOTE | 2019-03-28 14:16 | P.PN ---
Subjective Progress Note Date: 03/28/19 Principal diagnosis: Acute on chronic hypoxic respiratory failure Acute COPD exacerbation Purulent tracheobronchitis History of CVA pulmonary embolism and bowel obstruction due to ischemic bowel Seizure disorder Mood disorder depression EtOH abuse 03/28/2019, patient seen eval examined during the rounds labs reviewed medications reviewed patient is status post echocardiogram ejection fraction is 60-65% no evidence of significant pulmonary hypertension is seen, and comfo rtably, cough congestion shortness of breath have improved though, remains on IV steroids, breathing treatments are being given regularly, overall remains stable anticipate possible discharge on oral prednisone and oral antibiotics in next 24-48 hours 03/26/2019, patient seen and evaluated examined during the rounds labs reviewed medications reviewed patient remains on supplemental oxygen currently patient is on 2 L nasal cannula with oxygen saturation ranging anywhere from 90-98% Ammann patient is afebrile with stable hemodynamics, white cell count slightly up to 12,700 likely related to steroids, continue antibiotics, will titrate steroids down as tolerated 03/25/2019, patient seen eval reexamined during the rounds labs reviewed medications reviewed care plan discussed with the patient at length doing slightly better with still very short of breath on activity and exertion, has been getting breathing treatments and IV steroids along with broad-spectrum antibiotic The patient is a 58-year-old male well-known to me with past medical history of PE, 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 Patient reports worsening onset of symptoms around 3 AM this morning. Admits dyspnea, chills and fever. Has reported cough with yellow sputum production, symptoms started somewhere around [place] time, Denies hemoptysis. Reports that he had to increase his oxygen to 3 L. Has been using his inhalers at home more than usual and hasn't had any improvement in his symptoms. Denies any chest pain. No ripping or tearing sensation to his back. Denies any cardiac arrhythmias or coronary disease. Denies any lower extremity edema. No calf pain or swelling. Admits to being on anticoagulation and hasn't missed any doses. Denies changes in his bowel or bladder habits. No abdominal pain. Son states that the patient has been drinking more frequently. Patient admits drinking a couple beers last night however nothing excessive or daily. Denies any other drug use. Also reports a headache. States these are frequent after his stroke from 2 years ago. He did a [place] at home without improvement in his symptoms. He denies any visual changes, nausea or vomiting. No new unilateral numbness or weakness. There are no other alleviating, precipitating or modifying factors, he has a CAT scan in emergency department which is ne gative for pulmonary embolism has extensive emphysema, No Acute lung disease identified, his labs are significant for elevated lactic acid level of 2.3 which eventually came down to 1.7 Objective - Vital Signs Vital signs: Vital Signs Temp 97.6 F 03/28/19 11:41 Pulse 108 H 03/28/19 12:17 Resp 20 03/28/19 11:41 BP 121/77 03/28/19 11:41 Pulse Ox 98 03/28/19 11:41 Intake & Output 03/27/19 03/28/19 03/28/19 18:59 06:59 18:59 Intake Total 452 369 3978 Output Total 575 Balance 372 371 6352 Weight 59.2 kg Intake: IV 600 Sodium Chloride 0.9% 1, 600 000 ml @ 75 mls/hr IV . [id number] [facility] Rx#:[id number] Oral 600 720 462 Output: Urine 575 Other: Voiding Method Indwelling Catheter Indwelling Catheter Indwelling Catheter - Exam - Constitutional General appearance: average body habitus, cooperative, disheveled, mild distress - EENT Eyes: EOMI, PERRLA, poor dentition, normal appearance Ears: bilateral: normal - Neck Neck: normal ROM Carotids: bilateral: upstroke normal - Respiratory Respiratory: bilateral: diminished, wheezing, prolonged expiration, negative: CTA, dullness, rales, rhonchi - Cardiovascular Rhythm: regular Heart sounds: normal: S1, S2 - Gastrointestinal General gastrointestinal: decreased bowel sounds, distended, soft - Musculoskeletal Musculoskeletal: gait normal, generalized weakness, strength equal bilaterally - Psychiatric Psychiatric: A&O x's 3, appropriate affect, intact judgment & insight - Labs CBC & Chem 7: 03/28/19 05:42 03/28/19 05:42 Labs: Abnormal Lab Results - Last 24 Hours (Table) 03/28/19 03/28/19 Range/Units 05:42 05:42 RBC 4.25 L (4.30-5.90) m/uL Neutrophils # 8.6 H (1.3-7.7) k/uL Potassium 5.2 H (3.5-5.1) mmol/L BUN 22 H (9-20) mg/dL Creatinine 0.60 L (0.66-1.25) mg/dL Glucose 139 H (74-99) mg/dL Total Protein 5.7 L (6.3-8.2) g/dL Albumin 3.3 L (3.5-5.0) g/dL Assessment and Plan Assessment: Acute on chronic hypoxic respiratory failure Acute COPD exacerbation Purulent tracheobronchitis History of CVA pulmonary embolism and bowel obstruction due to ischemic bowel Seizure disorder Mood disorder depression EtOH abuse Plan: Supplemental oxygen IV steroids, start tapering it down, can be changed to oral at the time of discharge Resume home medication Bronchodilator Broad-spectrum antibiotics DVT and peptic ulcer disease prophylaxis Gentle rehydration Further recommendations pending plan of care as per clinical response of the patient Agree with discharge planning next 24-48 hours Time with Patient: Greater than 30
[2019-03-28] MEDS: RIVAROXABAN 20 MG TAB PO SCH (17:19)
[2019-03-28] MEDS: SODIUM CHLORIDE 0.9% 1,000 ML IV SCH (17:19)
--- NOTE | 2019-03-28 17:27 | P.PN ---
Subjective Progress Note Date: 03/28/19 This is a 58-year-old gentleman admitted with acute hypoxic respiratory failure, acute COPD exacerbation hospital tracheobronchitis and multiple other medical issues. Maintained on nebulized bronchodilators, steroids and antibiotics with improvement and breathing. Complains of exertional shortness of breath. Evaluated by pulmonary with recommendations noted. Tachycardic, afebrile. No new labs. 03/28/2019 tachycardic, heart rates ranging from 100 to 120s. Afebrile, normal WBC. Maintained on nebulized bronchodilators, IV steroids, antibiotics. Breathing improving, maintaining O2 sats of 98% on 3 L nasal cannula. Creatinine 0.6 with a potassium 5.2. EF 60-65%. Objective - Vital Signs Vital signs: Vital Signs Temp 98.2 F 03/28/19 15:30 Pulse 102 H 03/28/19 16:05 Resp 20 03/28/19 15:30 BP 115/76 03/28/19 15:30 Pulse Ox 93 L 03/28/19 15:51 Intake & Output 03/27/19 03/28/19 03/28/19 18:59 06:59 18:59 Intake Total 071 306 5208 Output Total 575 1000 Balance 600 145 62 Weight 59.2 kg Intake: IV 600 Sodium Chloride 0.9% 1, 600 000 ml @ 75 mls/hr IV . [id number] [facility] Rx#:[id number] Oral 600 720 462 Output: Urine 575 1000 Other: Voiding Method Indwelling Catheter Indwelling Catheter Indwelling Catheter - Exam PHYSICAL EXAM: VITAL SIGNS: [As above] GENERAL: Sitting up in bed, alert and oriented 3, no acute distress HEENT: Conjunctivae normal. eyes normal. Poor dentition. Oral mucosa moist. NECK: No JVD. No thyroid enlargement. No LNs CARDIOVASCULAR: S1, S2 regular. Tachycardic, No murmur RESPIRATION: Breath sounds diminished in the bases. Scattered rhonchi , NO crackles. Fine expiratory wheezing ABDOMEN: Soft, nontender. No guarding. no masses palpable. Bowel sounds heard. LEGS: No edema NERVOUS SYSTEM: No focal deficits. Skin: no rash - Labs CBC & Chem 7: 03/28/19 05:42 03/28/19 05:42 Labs: Abnormal Lab Results - Last 24 Hours (Table) 03/28/19 03/28/19 Range/Units 05:42 05:42 RBC 4.25 L (4.30-5.90) m/uL Neutrophils # 8.6 H (1.3-7.7) k/uL Potassium 5.2 H (3.5-5.1) mmol/L BUN 22 H (9-20) mg/dL Creatinine 0.60 L (0.66-1.25) mg/dL Glucose 139 H (74-99) mg/dL Total Protein 5.7 L (6.3-8.2) g/dL Albumin 3.3 L (3.5-5.0) g/dL Assessment and Plan Assessment: Acute COPD exacerbation with purulent tracheobronchitis Acute on chronic hypoxic respiratory failure secondary to the above, status post BiPAP Paroxysmal Atrial fibrillation with RVR, possible new onset Emphysema as per CT Hypertension History of CVA History of PE, no evidence of PE reported per CTA. History of seizure disorder Nicotine dependence History of alcoholism, daily alcohol consumption Depression, history of Plan: Continue on current medication regime ,monitoring and symptomatic treatment. Maintain nebulized bronchodilators, IV steroids, antibiotics. Tapering of steroids in progress as per pulmonary. Discharge planning in progress for tomorrow pending pulmonary clearance. The impression and plan of care has been dictated as directed. : I performed a history and examination of this patient, discussed the same with the dictator. I agree with the dictator's note ,documented as a scribe. Any additional findings or plans will be noted.
[2019-03-28] MEDS: MONTELUKAST 10 MG TAB PO SCH (21:11)
[2019-03-28] MEDS: LEVOFLOXACIN 500 MG TAB PO SCH (21:12)
[2019-03-28] MEDS: LATANOPROST 0.005% OPHTH DROPS 2.5 ML BTL BOTH EYES SCH (21:20)
[2019-03-29] MEDS: IPRATROPIUM-ALBUTEROL 3 ML NEB INHALATION SCH ×5 (00:25→15:42)
[2019-03-29] MEDS: BUDESONIDE 0.5 MG/2 ML NEBU INHALATION SCH (08:28)
[2019-03-29] MEDS: SODIUM CHLORIDE 0.9% 1,000 ML IV SCH (09:23)
[2019-03-29] MEDS: methylPREDNISolone SOD SUCCI 40 MG/ML 1 ML VIAL IV SCH (09:23)
[2019-03-29] MEDS: carBAMazepine 200 MG TAB PO SCH (09:24)
[2019-03-29] MEDS: DULoxetine HCL 60 MG CAPSULE.DR PO SCH (09:24)
[2019-03-29] MEDS: AZITHROMYCIN 500 MG TAB PO SCH (09:24)
[2019-03-29] MEDS: FAMOTIDINE 20 MG TAB PO SCH (09:24)
[2019-03-29] MEDS: METOPROLOL TARTRATE 25 MG TAB PO SCH (09:24)
[2019-03-29] MEDS: GABAPENTIN 300 MG CAP PO SCH (09:24)
[2019-03-29] MEDS: VERAPAMIL 80 MG TAB PO SCH ×2 (09:24→14:54)
[2019-03-29] MEDS: CLOPIDOGREL 75 MG TAB PO SCH (09:25)
[2019-03-29] MEDS: guaiFENesin SYRUP 100MG/5ML 200 MG/10 ML CUP PO PRN (09:28)
[2019-03-29] MEDS: HYDROcodone/APAP 5-325MG 1 EACH TAB PO PRN (09:28)
[2019-03-29 11:17] VITALS: BP 128/84; TEMP 98.1
[2019-03-29 11:30] VITALS: RESP 14
--- NOTE | 2019-03-29 11:45 | P.PN ---
Subjective Progress Note Date: 03/29/19 This is a 58-year-old gentleman who has history of prior stroke in 2017, COPD, prior PE and DVT, history of nicotine dependence, patient continues to smoke, he also has a history of significant EtOH abuse, and depression. He presented to the hospital with symptoms of progressively worsening shortness of breath. Patient also states that he was having fever and chills at home, coughing up dark yellow sputum. He came to the hospital for further evaluation and treatment. According to the documentation, the son had stated that the patient has been drinking a lot more alcohol than usual as well. CTA of the chest was performed on arrival here which did not reveal evidence of pulmonary embolism, it did show emphysema. His EKG on presentation here showed a sinus tachycardia, subsequent EKG showed atrial fibrillation with rapid ventricular response. Patient was initiated on IV heparin and IV Cardizem, he continues to be in atrial fibrillation this morning. Blood pressure this morning 120/68 with a heart rate in the 90s, 93% on room air. White blood cell count 12.7, hemoglobin 13.4, platelet count 260. Sodium 139, potassium 4.4, BUN 20, creatinine 0.4. Magnesium 1.9, troponin 0.012. TSH 2.3. Influenza A and B were negative. Cardiology consultation was requested for atrial fibrillation. At the time of my examination this morning, patient continues to have significant productive cough of dark yellow sputum. He still states that he feels quite short of breath, denies any chest discomfort, no palpitations. I did explain to the patient, that he will need to be on oral anticoagulation for stroke prevention, he has already had one stroke in the past. Patient will be h igher risk than usual because of his significant use of alcohol. 03/28/2019 Patient was seen and examined this morning, overall doing well. He is tachycardic this morning, he is in a sinus tachycardia.blood pressure 124/80, 98% on 3 L of oxygen.White blood cell count 10.2, hemoglobin 13, platelet count 271. Sodium 138, potassium 5.2, BUN 22, creatinine 0.6. 03/29/2019 Patient seen and examined this morning,still continues to be somewhat tachycardic this morning.we will increase the dose of beta aditya today to 50 mg by mouth twice a day. Blood pressure 128/80. Objective - Vital Signs Vital signs: Vital Signs Temp 98.1 F 03/29/19 11:15 Pulse 94 03/29/19 11:39 Resp 14 03/29/19 11:39 BP 128/84 03/29/19 11:15 Pulse Ox 94 L 03/29/19 11:15 Intake & Output 03/28/19 03/29/19 03/29/19 18:59 06:59 18:59 Intake Total 1504 118 Output Total 1000 450 Balance 504 -332 Weight 61.5 kg Intake: IV 600 Sodium Chloride 0.9% 1, 600 000 ml @ 75 mls/hr IV . [id number] [facility] Rx#:[id number] Oral 904 118 Output: Urine 1000 450 Other: Voiding Method Indwelling Catheter Indwelling Catheter Indwelling Catheter - Exam PHYSICAL EXAMINATION: GENERAL: 58-year-old gentleman in no acute distress at the time of my examination HEENT: Head is atraumatic, normocephalic. Pupils equal, round. Sclera anicteric. Conjunctiva are clear. Mucous membranes of the mouth are moist. Neck is supple. There is no elevated jugular venous pressure. No carotid bruit is heard. HEART EXAMINATION: Heart S1 and [id number], tachycardic CHEST EXAMINATION: His reveal coarse scattered rhonchi throughout. ABDOMEN: Soft, nontender. Bowel sounds are heard. No organomegaly noted. EXTREMITIES: 1+ peripheral pulses with no evidence of peripheral edema and no calf tenderness noted. NEUROLOGIC patient is awake, alert and oriented 3. - Labs CBC & Chem 7: 03/28/19 05:42 03/28/19 05:42 Assessment and Plan Plan: Assessment and plan #1 COPD exacerbation with acute purulent tracheobronchitis. #2 atrial fibrillation with rapid ventricular response, appears to be of new onset for the patient, paroxysmal #3 history of CVA #4 history of pulmonary embolism and DVT #5 history of seizure disorder #6 nicotine dependence #7 moderate to severe COPD #8 EtOH abuse #9 depression #10 hypertension Plan cardiogram with Doppler study was performed which revealed an ejection fraction of 60-65%. We will increase the dose of beta aditya to 50 mg one tablet by mouth twice a day today. DNP note has been reviewed, I agree with a documented findings and plan of care. Patient was seen and examined.
[2019-03-29] MEDS: RIVAROXABAN 20 MG TAB PO SCH (14:54)
[2019-03-29 14:56] VITALS: PULSE 96
--- NOTE | 2019-03-29 17:23 | P.PN ---
Subjective Progress Note Date: 03/29/19 Principal diagnosis: Acute on chronic hypoxic respiratory failure Acute COPD exacerbation Purulent tracheobronchitis History of CVA pulmonary embolism and bowel obstruction due to ischemic bowel Seizure disorder Mood disorder depression EtOH abuse 03/29/2019, patient seen eval examined during the rounds labs reviewed medications reviewed care plan discussed with the patient at length he is complaining of improved to the shortness of breath and cough but however slightly dizziness I've advised patient to be ambulated and moved around and Carter's catheter to be removed prior to discharge 03/28/2019, patient seen eval examined during the rounds labs reviewed medicatio ns reviewed patient is status post echocardiogram ejection fraction is 60-65% no evidence of significant pulmonary hypertension is seen, and comfortably, cough congestion shortness of breath have improved though, remains on IV steroids, breathing treatments are being given regularly, overall remains stable anticipate possible discharge on oral prednisone and oral antibiotics in next 24-48 hours 03/26/2019, patient seen and evaluated examined during the rounds labs reviewed medications reviewed patient remains on supplemental oxygen currently patient is on 2 L nasal cannula with oxygen saturation ranging anywhere from 90-98% Ammann patient is afebrile with stable hemodynamics, white cell count slightly up to 12,700 likely related to steroids, continue antibiotics, will titrate steroids down as tolerated 03/25/2019, patient seen eval reexamined during the rounds labs reviewed medications reviewed care plan discussed with the patient at length doing slightly better with still very short of breath on activity and exertion, has been getting breathing treatments and IV steroids along with broad-spectrum antibiotic The patient is a 58-year-old male well-known to me with past medical history of PE, 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 Patient reports worsening onset of symptoms around 3 AM this morning. Admits dyspnea, chills and fever. Has reported cough with yellow sputum production, symptoms started somewhere around [place] time, Denies hemoptysis. Reports that he had to increase his oxygen to 3 L. Has been using his inhalers at home more than usual and hasn't had any improvement in his symptoms. Denies any chest pain. No ripping or tearing sensation to his back. Denies any cardiac arrhythmias or coronary disease. Denies any lower extremity edema. No calf pain or swelling. Admits to being on anticoagulation and hasn't missed any doses. Denies changes in his bowel or bladder habits. No abdominal pain. Son states that the patient has been drinking more frequently. Patient admits drinking a couple beers last night however nothing excessive or daily. Denies any other drug use. Also reports a headache. States these are frequent after his stroke from 2 years ago. He did a [place] at home without improvement in his symptoms. He denies any visual changes, nausea or vomiting. No new unilateral numbness or weakness. There are no other alleviating, precipitating or modifying factors, he has a CAT scan in emergency department which is negative for pulmonary embolism has extensive emphysema, No Acute lung disease identified, his labs are significant for elevated lactic acid level of 2.3 which eventually came down to 1.7 Objective - Vital Signs Vital signs: Vital Signs Temp 98.1 F 03/29/19 11:15 Pulse 96 03/29/19 12:00 Resp 14 03/29/19 12:00 BP 128/84 03/29/19 11:15 Pulse Ox 94 L 03/29/19 11:15 Intake & Output 03/28/19 03/29/19 03/29/19 18:59 06:59 18:59 Intake Total 1504 118 720 Output Total 1000 450 800 Balance 504 -332 -80 Weight 61.5 kg 61.5 kg Intake: IV 600 Sodium Chloride 0.9% 1, 600 000 ml @ 75 mls/hr IV . [id number] [facility] Rx#:[id number] Oral 904 118 720 Output: Urine 1000 450 800 Other: Voiding Method Indwelling Catheter Indwelling Catheter Toilet Urinal - Exam - Constitutional General appearance: average body habitus, cooperative, disheveled, mild distress - EENT Eyes: EOMI, PERRLA, poor dentition, normal appearance Ears: bilateral: normal - Neck Neck: normal ROM Carotids: bilateral: upstroke normal - Respiratory Respiratory: bilateral: diminished, wheezing, prolonged expiration, negative: CTA, dullness, rales, rhonchi - Cardiovascular Rhythm: regular Heart sounds: normal: S1, S2 - Gastrointestinal General gastrointestinal: decreased bowel sounds, distended, soft - Musculoskeletal Musculoskeletal: gait normal, generalized weakness, strength equal bilaterally - Psychiatric Psychiatric: A&O x's 3, appropriate affect, intact judgment & insight - Labs CBC & Chem 7: 03/28/19 05:42 03/28/19 05:42 Assessment and Plan Assessment: Acute on chronic hypoxic respiratory failure Acute COPD exacerbation Purulent tracheobronchitis History of CVA pulmonary embolism and bowel obstruction due to ischemic bowel Seizure disorder Mood disorder depression EtOH abuse Plan: Supplemental oxygen IV steroids, can be changed to oral at the time of discharge Resume home medication Bronchodilator Broad-spectrum antibiotics DVT and peptic ulcer disease prophylaxis Gentle rehydration Further recommendations pending plan of care as per clinical response of the patient Agree with discharge planning of doing well with ambulation and after removal of Carter's catheter Time with Patient: Greater than 30
--- NOTE | 2019-03-29 17:53 | P.DS ---
Providers Date of admission: 03/23/19 18:35 Expected date of discharge: 03/29/19 Attending physician: Octaviano Noble Consults: 03/23/19 18:38 Consult Physician Urgent Consulting Provider: Sumanth Fjaardo Consult Reason/Comments: NIVDRF, AECOPD Do you want consulting provider notified?: Yes 03/26/19 13:41 Consult Physician Routine Consulting Provider: Ole Davey Consult Reason/Comments: a.fib with RVR Do you want consulting provider notified?: Yes Primary care physician: [facility] Course: Final Diagnoses: Acute COPD exacerbation with purulent tracheobronchitis Acute on chronic hypoxic respiratory failure secondary to the above, status post BiPAP Paroxysmal Atrial fibrillation with RVR, possible new onset Emphysema as per CT Hypertension History of CVA History of PE, no evidence of PE reported per CTA. History of seizure disorder Nicotine dependence History of alcoholism, daily alcohol consumption Depression, history of Hospital course:This is a 58-year-old gentleman admitted with acute hypoxic respiratory failure, acute COPD exacerbation hospital tracheobronchitis and multiple other medical issues. Maintained on nebulized bronchodilators, st eroids and antibiotics with improvement and breathing. Complains of exertional shortness of breath. Evaluated by pulmonary with recommendations noted. Tachycardic, afebrile. No new labs. 03/28/2019 tachycardic, heart rates ranging from 100 to 120s. Afebrile, normal WBC. Maintained on nebulized bronchodilators, IV steroids, antibiotics. Breathing improving, maintaining O2 sats of 98% on 3 L nasal cannula. Creatinine 0.6 with a potassium 5.2. EF 60-65%. Significant clinical improvement. Cleared by all consults for discharge. Patient is being discharged home in stable condition with guarded prognosis. EXAM: GENERAL: alert and oriented 3, no acute distress CARDIOVASCULAR: S1, S2 regular. No murmur RESPIRATION: Breath sounds diminished in the bases. ABDOMEN: Soft, nontender. No guarding. Bowel sounds heard. NERVOUS SYSTEM: No focal deficits. The impression and plan of care has been dictated as directed. : I performed a history and examination of this patient, discussed the same with the dictator. I agree with the dictator's note ,documented as a scribe. Any additional findings or plans will be noted. Patient Condition at Discharge: Stable Plan - Discharge Summary Discharge Rx Participant: No New Discharge Prescriptions: New Verapamil [Isoptin] 80 mg PO TID #90 tab Levofloxacin [Levaquin] 500 mg PO HS #5 tab Clopidogrel [Plavix] 75 mg PO DAILY #30 tab guaiFENesin SYRUP 100MG/5ML [Robitussin] 200 mg PO Q6H PRN cup PRN Reason: Cough Montelukast [Singulair] 10 mg PO HS #30 tab Rivaroxaban [Xarelto] 20 mg PO W/SUPPER #30 tab predniSONE 10 mg PO DIRECTED #30 tab carBAMazepine [TEGretol] 200 mg PO BID tab Continue Gabapentin [Neurontin] 300 mg PO BID Meclizine [Antivert] 12.5 mg PO TID HYDROcodone/APAP 7.5-325MG [[place] 7.5-325] 1 tab PO BID PRN PRN Reason: Pain DULoxetine HCL [Cymbalta] 60 mg PO DAILY Topiramate [Topamax] 50 mg PO DAILY FLUoxetine HCL [PROzac] 20 mg PO DAILY tiZANidine HCL [Zanaflex] 2 mg PO TID Pantoprazole [Protonix] 40 mg PO AC-BRKFST #15 tablet. Latanopro Ophth [Xalatan 0.005%] 1 drops BOTH EYES HS Changed Metoprolol Tartrate [Lopressor] 50 mg PO BID #60 tab Discontinued amLODIPine BESYLATE [Norvasc] 5 mg PO DAILY Discharge Medication List Gabapentin [Neurontin] 300 mg PO BID 12/07/17 [History] Meclizine [Antivert] 12.5 mg PO TID 01/06/18 [History] DULoxetine HCL [Cymbalta] 60 mg PO DAILY 04/13/18 [History] FLUoxetine HCL [PROzac] 20 mg PO DAILY 04/13/18 [History] HYDROcodone/APAP 7.5-325MG [[place] 7.5-325] 1 tab PO BID PRN 04/13/18 [History] Topiramate [Topamax] 50 mg PO DAILY 04/13/18 [History] tiZANidine HCL [Zanaflex] 2 mg PO TID 05/25/18 [History] Pantoprazole [Protonix] 40 mg PO AC-BRKFST #15 tablet. 11/01/18 [Rx] Latanoprost Ophth [Xalatan 0.005%] 1 drops BOTH EYES HS 03/25/19 [History] Clopidogrel [Plavix] 75 mg PO DAILY #30 tab 03/29/19 [Rx] Levofloxacin [Levaquin] 500 mg PO HS #5 tab 03/29/19 [Rx] Metoprolol Tartrate [Lopressor] 50 mg PO BID #60 tab 03/29/19 [Rx] Montelukast [Singulair] 10 mg PO HS #30 tab 03/29/19 [Rx] Rivaroxaban [Xarelto] 20 mg PO W/SUPPER #30 tab 03/29/19 [Rx] Verapamil [Isoptin] 80 mg PO TID #90 tab 03/29/19 [Rx] carBAMazepine [TEGretol] 200 mg PO BID tab 03/29/19 [Rx] guaiFENesin SYRUP 100MG/5ML [Robitussin] 200 mg PO Q6H PRN cup 03/29/19 [Rx] predniSONE 10 mg PO DIRECTED #30 tab 03/29/19 [Rx] Follow up Appointment(s)/Referral(s): [facility] [NON-STAFF] - Octaviano Noble MD [Primary Care Provider] - 04/06/19 9:45 am (Thursday) Sumanth Fajardo MD [STAFF PHYSICIAN] - 1 Week (Office is closed. Please call to schedule appointment) Ole Davey MD [STAFF PHYSICIAN] - 04/05/19 3:00 pm (Thursday) Ambulatory/Diagnostic Orders: Complete Blood Count w/diff [LAB.AMB] Time Frame: 3 Days, Location: None Selected Patient Instructions/Handouts: A-fib (Atrial Fibrillation) (DC), Urinary Retention in Men (ED), COPD (Chronic Obstructive Pulmonary Disease) (DC), Safe Use of Anticoagulants (DC) Activity/Diet/Wound Care/Special Instructions: Patient has nebulizer treatments at home, resume 4 times a day and every 4 hours prn SOB Discharge Disposition: HOME WITH HOME HEALTH SERVICES
[2019-03-29] MEDS ORDERED: METOPROLOL TARTRATE 50 MG TAB PO SCH (21:00)
== END 2019-03-29 15:25 | disposition home health service (06) | DRG 190 ==
LOC: EC 15:49 → 3SCARD 18:35
PROVIDERS: ADMIT Family Medicine; ATTEND Family Medicine
PROC: 5A09457 Assistance with Respiratory Ventilation, 24-96 Consecutive Hours, Continuous Positive Airway Pressure (ICD-10-PCS; principal; 2019-03-23)
DX: J43.9 Emphysema, unspecified (principal); J96.21 Acute and chronic respiratory failure with hypoxia; I69.354 Hemiplegia and hemiparesis following cerebral infarction affecting left non-dominant side; E87.2 Acidosis; J20.9 Acute bronchitis, unspecified; I48.0 Paroxysmal atrial fibrillation; F10.20 Alcohol dependence, uncomplicated; G40.909 Epilepsy, unspecified, not intractable, without status epilepticus; G43.909 Migraine, unspecified, not intractable, without status migrainosus; R33.9 Retention of urine, unspecified; F32.9 Major depressive disorder, single episode, unspecified; I10 Essential (primary) hypertension; D72.829 Elevated white blood cell count, unspecified; T38.0X5A Adverse effect of glucocorticoids and synthetic analogues, initial encounter; G89.29 Other chronic pain; M54.9 Dorsalgia, unspecified; M19.90 Unspecified osteoarthritis, unspecified site; H40.9 Unspecified glaucoma; H93.13 Tinnitus, bilateral; F17.210 Nicotine dependence, cigarettes, uncomplicated; Z71.6 Tobacco abuse counseling; Z77.22 Contact with and (suspected) exposure to environmental tobacco smoke (acute) (chronic); Z99.81 Dependence on supplemental oxygen; Z79.02 Long term (current) use of antithrombotics/antiplatelets; Z79.899 Other long term (current) drug therapy; Z87.01 Personal history of pneumonia (recurrent); Z86.711 Personal history of pulmonary embolism; Z87.11 Personal history of peptic ulcer disease; Z86.19 Personal history of other infectious and parasitic diseases; Z86.79 Personal history of other diseases of the circulatory system; Z90.49 Acquired absence of other specified parts of digestive tract; Z86.13 Personal history of malaria; Z98.890 Other specified postprocedural states; Z86.718 Personal history of other venous thrombosis and embolism; Z88.0 Allergy status to penicillin; Z88.8 Allergy status to other drugs, medicaments and biological substances; Z80.8 Family history of malignant neoplasm of other organs or systems; Z80.3 Family history of malignant neoplasm of breast; Z82.5 Family history of asthma and other chronic lower respiratory diseases
CPT/HCPCS: 36415; 51702; 71275; 80048; 80053; 83605; 83735; 83880; 84443; 84484; 85025; 85379; 85610; 85730; 87502; 93005; 93306; 94640; 94660; 94760; 96365; 96375; 99291

== ENCOUNTER → 2019-04-23 | Outpatient (CLI) | payer MEDICARE | END | disposition home or self-care (01) | LOC: LABWHC1 10:00 | PROVIDERS: ATTEND Urology | DX: C61 Malignant neoplasm of prostate (principal) | CPT/HCPCS: 36415; 84153 ==

== ENCOUNTER 2019-06-21 01:53 | Emergency (ER) | payer MEDICARE ==
[2019-06-21] MEDS ORDERED: SODIUM CHLORIDE 0.9% 1,000 ML IV STA (02:00)
--- NOTE | 2019-06-21 02:00 | ED ---
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 Patient reports that throughout the day today he is just feeling slightly more weak than usual, he reports that this evening he was walking with his walker when he felt like he got more weak and fell onto the couch she did not lose consciousness he didn't have any head trauma. He said he come to the ER to be evaluated. Patient reports he's been able to ambulate with his walker at baseline about the day today until he had the fall. He is able to move his left arm and left leg but just feels overall like he's more weak than usual. Denies any recent illness, fevers chills nausea vomiting, chest pain, palpitations or shortness of breath. - Related Data Home Medications Medication Instructions Recorded Confirmed Gabapentin [Neurontin] 300 mg PO BID 12/07/17 03/24/19 Meclizine [Antivert] 12.5 mg PO TID 01/06/18 03/24/19 DULoxetine HCL [Cymbalta] 60 mg PO DAILY 04/13/18 03/24/19 FLUoxetine HCL [PROzac] 20 mg PO DAILY 04/13/18 03/24/19 HYDROcodone/APAP 7.5-325MG [[place] 1 tab PO BID PRN 04/13/18 03/24/19 7.5-325] Topiramate [Topamax] 50 mg PO DAILY 04/13/18 03/24/19 tiZANidine HCL [Zanaflex] 2 mg PO TID 05/25/18 03/24/19 Latanoprost Ophth [Xalatan 0.005%] 1 drops BOTH EYES HS 03/25/19 03/25/19 Previous Rx's Medication Instructions Recorded Pantoprazole [Protonix] 40 mg PO AC-BRKFST #15 tablet. 11/01/18 Clopidogrel [Plavix] 75 mg PO DAILY #30 tab 03/29/19 Levofloxacin [Levaquin] 500 mg PO HS #5 tab 03/29/19 Metoprolol Tartrate [Lopressor] 50 mg PO BID #60 tab 03/29/19 Montelukast [Singulair] 10 mg PO HS #30 tab 03/29/19 Rivaroxaban [Xarelto] 20 mg PO W/SUPPER #30 tab 03/29/19 Verapamil [Isoptin] 80 mg PO TID #90 tab 03/29/19 carBAMazepine [TEGretol] 200 mg PO BID tab 03/29/19 guaiFENesin SYRUP 100MG/5ML 200 mg PO Q6H PRN cup 03/29/19 [Robitussin] predniSONE 10 mg PO DIRECTED #30 tab 03/29/19 Allergies Allergy/AdvReac Type Severity Reaction Status Date / Time varenicline tartrate Allergy Intermediate Rash/Hives Verified 03/23/19 19:59 [From Chantix] ampicillin Allergy Rash/Hives Verified 03/23/19 19:59 Review of Systems ROS Statement: Those systems with pertinent positive or pertinent negative responses have been documented in the HPI. ROS Other: All systems not noted in ROS Statement are negative. 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, CVA with L sided weakness (pt states occured during caratid endartectomy), TIA, bowel obstruction with resection/colostomy and reversal of colostomy, MIGRAINES, bilateral TIN NITUS, WAS TOLD 20 YEARS AGO HE HAD ALCOHOLIC HEPATITIS, bilateral GLAUCOMA History of Any Multi-Drug Resistant Organisms: VRE Date of last positivie culture/infection: 06/10/16 MDRO Source:: [id number] Past Surgical History: Bowel Resection, Hernia Repair, Orthopedic Surgery Additional Past Surgical History / Comment(s): Gastric ulcer perforation with repair, EGD/COLONOSCOPY,, JOSIAH KNEE ARTHROSCOPY, abdominal hernia repair. 05/2016 bowel resection d/t obstruction with colostomy then reversal, PICC line, R caratid endartectomy. Past Anesthesia/Blood Transfusion Reactions: Motion Sickness Past Psychological History: Depression Smoking Status: Current every day smoker Past Alcohol Use History: None Reported Past Drug Use History: None Reported - Past Family History Sister(s) Family Medical History: Cancer Additional Family Medical History / Comment(s): SKIN CANCER Mother Family Medical History: Cancer Additional Family Medical History / Comment(s): BREAST Father Additional Family Medical History / Comment(s): YELLOW JAUNDICE, MALARIA FROM WW2, EMPHYSEMA Brother(s) Family Medical History: Cancer Additional Family Medical History / Comment(s): SKIN General Exam - General Exam Comments Initial Comments: Physical Exam GENERAL: Chronically ill-appearing gentleman appears older than stated age HENT: Normocephalic, Atraumatic. EYES: PERRL, EOMI PULMONARY: Unlabored respirations. CARDIOVASCULAR: RRR Warm and well perfused extremities ABDOMEN: Non-distended SKIN: No rashes or bruising : Deferred NEUROLOGIC: Alert and oriented Left arm contracted The foot with foot drop in a brace Chronic left-sided weakness MUSCULOSKELETAL: Moving all extremities with no apparent injury PSYCHIATRIC: No SI/HI Course Vital Signs 06/21/19 02:02 Temperature 97.7 F Pulse Rate 116 H Respiratory 18 Rate Blood Pressure 121/91 O2 Sat by Pulse 95 Oximetry EKG Findings - EKG Comments: EKG Findings:: KG was obtained due to tachycardia and complaint of weakness, EKG was obtained at 2:01 AM, rate is 108 rhythm is sinus tach normal axis, normal intervals, ND 142, QRS 76. She C4 [address] elevations or depressions no evidence of acute ischemia or infarction Medical Decision Making - Medical Decision Making The patient was seen and evaluated history was taken from patient and signed history reveals a 58-year-old woman with history of stroke presenting today with generalized weakness and a single episode of falling while walking with his walker, patient fell onto his couch she did not strike his head did not lose consciousness Physical exam with chronic findings but nothing acute Labs with no significant acute abnormalities CT head with no acute abnormalities, chronic findings consistent with previous stroke Results were discussed with patient who expresses relief Patient was given a sandwich and mane humberto which she tolerated, disposition was discussed with the patient, considering the current high risk of exposure coronavirus in a medical facility I did encourage the patient to discharge home for outpatient follow-up which patient is agreeable to - Lab Data Result diagrams: 06/21/19 02:06 06/21/19 02:06 Lab Results 03/06/21/19 06/21/19 Range/Units 02:06 02:06 02:06 WBC 4.8 (3.8-10.6) k/uL RBC 4.37 (4.30-5.90) m/uL Hgb 13.7 (13.0-17.5) gm/dL Hct 42.1 (39.0-53.0) % MCV 96.4 (80.0-100.0) fL MCH 31.3 (25.0-35.0) pg MCHC 32.4 (31.0-37.0) g/dL RDW 14.6 (11.5-15.5) % Plt Count 266 (150-450) k/uL Neutrophils % 65 % Lymphocytes % 22 % Monocytes % 6 % Eosinophils % 4 % Basophils % 0 % Neutrophils # 3.1 (1.3-7.7) k/uL Lymphocytes # 1.0 (1.0-4.8) k/uL Monocytes # 0.3 (0-1.0) k/uL Eosinophils # 0.2 (0-0.7) k/uL Basophils # 0.0 (0-0.2) k/uL PT 9.3 (9.0-12.0) sec INR 0.9 (<1.2) APTT 24.7 (22.0-30.0) sec Sodium 136 L (137-145) mmol/L Potassium 4.1 (3.5-5.1) mmol/L Chloride 95 L (98-107) mmol/L Carbon Dioxide 31 H (22-30) mmol/L Anion Gap 10 mmol/L BUN 12 (9-20) mg/dL Creatinine 0.80 (0.66-1.25) mg/dL Est GFR (CKD-EPI)AfAm >90 (>60 ml/min/1.73 sqM) Est GFR (CKD-EPI)NonAf >90 (>60 ml/min/1.73 sqM) Glucose 112 H (74-99) mg/dL POC Glucose (mg/dL) (75-99) mg/dL POC Glu Sheet Metal Worker ID Calcium 9.3 (8.4-10.2) mg/dL Magnesium 1.9 (1.6-2.3) mg/dL Total Bilirubin 0.3 (0.2-1.3) mg/dL AST 29 (17-59) U/L ALT 16 (4-49) U/L Alkaline Phosphatase 89 (38-126) U/L Troponin I (0.000-0.034) ng/mL Total Protein 7.2 (6.3-8.2) g/dL Albumin 4.8 (3.5-5.0) g/dL Urine Color Urine Appearance (Clear) Urine pH (5.0-8.0) Ur Specific [place] (1.001-1.035) Urine Protein (Negative) Urine Glucose (UA) (Negative) Urine Ketones (Negative) Urine Blood (Negative) Urine Nitrite (Negative) Urine Bilirubin (Negative) Urine Urobilinogen (<2.0) mg/dL Ur Leukocyte Esterase (Negative) 06/21/19 06/21/19 06/21/19 Range/Units 02:06 02:14 03:09 WBC (3.8-10.6) k/uL RBC (4.30-5.90) m/uL Hgb (13.0-17.5) gm/dL Hct (39.0-53.0) % MCV (80.0-100.0) fL MCH (25.0-35.0) pg MCHC (31.0-37.0) g/dL RDW (11.5-15.5) % Plt Count (150-450) k/uL Neutrophils % % Lymphocytes % % Monocytes % % Eosinophils % % Basophils % % Neutrophils # (1.3-7.7) k/uL Lymphocytes # (1.0-4.8) k/uL Monocytes # (0-1.0) k/uL Eosinophils # (0-0.7) k/uL Basophils # (0-0.2) k/uL PT (9.0-12.0) sec INR (<1.2) APTT (22.0-30.0) sec Sodium (137-145) mmol/L Potassium (3.5-5.1) mmol/L Chloride (98-107) mmol/L Carbon Dioxide (22-30) mmol/L Anion Gap mmol/L BUN (9-20) mg/dL Creatinine (0.66-1.25) mg/dL Est GFR (CKD-EPI)AfAm (>60 ml/min/1.73 sqM) Est GFR (CKD-EPI)NonAf (>60 ml/min/1.73 sqM) Glucose (74-99) mg/dL POC Glucose (mg/dL) 128 H (75-99) mg/dL POC Glu Sheet Metal Worker ID Gracie Sierra Calcium (8.4-10.2) mg/dL Magnesium (1.6-2.3) mg/dL Total Bilirubin (0.2-1.3) mg/dL AST (17-59) U/L ALT (4-49) U/L Alkaline Phosphatase (38-126) U/L Troponin I <0.012 (0.000-0.034) ng/mL Total Protein (6.3-8.2) g/dL Albumin (3.5-5.0) g/dL Urine Color Yellow Urine Appearance Clear (Clear) Urine pH 5.5 (5.0-8.0) Ur Specific [place] 1.009 (1.001-1.035) Urine Protein Negative (Negative) Urine Glucose (UA) Negative (Negative) Urine Ketones Negative (Negative) Urine Blood Negative (Negative) Urine Nitrite Negative (Negative) Urine Bilirubin Negative (Negative) Urine Urobilinogen <2.0 (<2.0) mg/dL Ur Leukocyte Esterase Negative (Negative) Disposition Clinical Impression: Weakness, Weakness of left side of body Disposition: HOME SELF-CARE Condition: Stable Additional Instructions: Make sure you are well hydrated and eating plenty Follow up with your PCP this week for re-evaluation Return to the ER for any new or concerning symptoms Is patient prescribed a controlled substance at d/c from ED?: No Referrals: Octaviano Noble MD [Primary Care Provider] - 1-2 days
[2019-06-21 02:06] VITALS: BP 121/91; PULSE 116; RESP 18; TEMP 97.7
[2019-06-21 02:15] LABS: Basophils % (A) 0 %; Eosinophils # (A) 0.2 k/uL (0-0.7); Eosinophils % (A) 4 %; HCT 42.1 % (39.0-53.0); HGB 13.7 gm/dL (13.0-17.5); Lymphocytes % (A) 22 %; MCH 31.3 pg (25.0-35.0); MCHC 32.4 g/dL (31.0-37.0); MCV 96.4 fL (80.0-100.0); Mean Platelet Volume 7.4; Monocytes # (A) 0.3 k/uL (0-1.0); Monocytes % (A) 6 %; Neutrophils # (A) 3.1 k/uL (1.3-7.7); Neutrophils % (A) 65 %; Platelet Count 266 k/uL (150-450); RBC 4.37 m/uL (4.30-5.90); RDW 14.6 % (11.5-15.5); WBC 4.8 k/uL (3.8-10.6)
[2019-06-21 02:17] LABS: Glucose,Whole Blood 128 mg/dL (75-99)
[2019-06-21 02:26] LABS: ALT 16 U/L (4-49); AST 29 U/L (17-59); African American GFR (CKD) >90 (>60 ml/min/1.73 sqM); Albumin 4.8 g/dL (3.5-5.0); Alkaline Phosphatase 89 U/L (38-126); Anion Gap 10 mmol/L; Blood Urea Nitrogen 12 mg/dL (9-20); Calcium 9.3 mg/dL (8.4-10.2); Carbon Dioxide 31 mmol/L (22-30); Chloride 95 mmol/L (98-107); Glucose 112 mg/dL (74-99); Magnesium 1.9 mg/dL (1.6-2.3); Non-African American GFR(CKD) >90 (>60 ml/min/1.73 sqM); Potassium 4.1 mmol/L (3.5-5.1); Sodium 136 mmol/L (137-145); Total Bilirubin 0.3 mg/dL (0.2-1.3); Total Protein 7.2 g/dL (6.3-8.2)
[2019-06-21 02:28] LABS: INR 0.9 (<1.2); Partial Thromboplastin Time 24.7 sec (22.0-30.0); Prothrombin Time 9.3 sec (9.0-12.0)
--- NOTE | 2019-06-21 02:46 | CT ---
EXAMINATION TYPE: CT brain wo con DATE OF EXAM: 06/21/2019 COMPARISON: 05/25/2018 HISTORY: R/O Stroke Weakness CT DLP: 1090.40 mGycm Automated exposure control for dose reduction was used. There is cerebral cortical atrophy. There is moderate-sized area of hypodensity involving the right a nterior and posterior frontal lobe related to old cortical infarct. There is lacunar infarct anterior right internal capsule. There is no mass effect nor midline shift. There is no evidence of intracran ial hemorrhage. The calvarium is intact. IMPRESSION: Old right frontoparietal infarct. No acute intracranial abnormality. No significant change compared t o old exam.
--- NOTE | 2019-06-21 02:49 | XR ---
EXAMINATION TYPE: XR chest 1V DATE OF EXAM: 06/21/2019 COMPARISON: 10/29/2018 HISTORY: Chest pain. Altered mental status TECHNIQUE: FINDINGS: There is no heart failure nor confluent pneumonic infiltrate. Costophrenic angles are clear . There are chest leads. There is some emphysematous changes right upper lobe. IMPRESSION: No active cardiopulmonary disease. No change.
[2019-06-21 03:15] LABS: Appearance,Urine Clear (Clear); Bilirubin,Urine Negative (Negative); Color,Urine Yellow; Glucose,Urine (UA) Negative (Negative); Ketones,Urine Negative (Negative); PH, Urine 5.5 (5.0-8.0); Protein,Urine Negative (Negative); Specific Gravity,Urine 1.009 (1.001-1.035)
[2019-06-21 03:16] LABS: Blood,Urine Negative (Negative); Leukocyte Esterase,Urine Negative (Negative); Nitrite,Urine Negative (Negative); Urobilinogen,Urine <2.0 mg/dL (<2.0)
== END 2019-06-21 05:27 | disposition home or self-care (01) ==
LOC: EC 01:53
DX: R53.1 Weakness (principal); M21.379 Foot drop, unspecified foot; G40.909 Epilepsy, unspecified, not intractable, without status epilepticus; J44.9 Chronic obstructive pulmonary disease, unspecified; J96.90 Respiratory failure, unspecified, unspecified whether with hypoxia or hypercapnia; F32.9 Major depressive disorder, single episode, unspecified; F17.200 Nicotine dependence, unspecified, uncomplicated; Z79.899 Other long term (current) drug therapy; Z88.1 Allergy status to other antibiotic agents; Z88.8 Allergy status to other drugs, medicaments and biological substances; Z86.73 Personal history of transient ischemic attack (TIA), and cerebral infarction without residual deficits; Z86.711 Personal history of pulmonary embolism
CPT/HCPCS: 36415; 70450; 71045; 80053; 81003; 83735; 84484; 85025; 85610; 85730; 93005; 96360; 99285

== ENCOUNTER 2019-09-20 23:02 | Inpatient (IN) | payer MEDICARE ==
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
[2019-09-21] MEDS ORDERED: SODIUM CHLORIDE 0.9% 1,000 ML IV STA (02:38)
[2019-09-21] MEDS ORDERED: SODIUM CHLORIDE 0.9% 500 ML 500 ML IV STA (02:38)
[2019-09-21] MEDS ORDERED: LABETALOL 5 MG/ML VIAL MDV IVP STA (02:38)
[2019-09-21 03:32] LABS: Amphetamine Screen,Urine Not Detected (NotDetected); Barbiturate Screen,Urine Detected (NotDetected); Benzodiazepines Screen,Urine Detected (NotDetected); Cocaine Screen,Urine Not Detected (NotDetected); Methadone Screen, Urine Not Detected (NotDetected); Opiate Screen,Urine Not Detected (NotDetected); Oxycodone Screen, Urine Not Detected (NotDetected); Phencyclidine Screen,Urine Not Detected (NotDetected); Tricyclic Antidepressant,Urine Detected (NotDetected); Urn Cannabinoid Scrn Detected (NotDetected)
[2019-09-21 03:34] LABS: ALT 18 U/L (4-49); AST 29 U/L (17-59); Acetaminophen <10.0 ug/mL; African American GFR (CKD) >90 (>60 ml/min/1.73 sqM); Alcohol <10 mg/dL; Alkaline Phosphatase 68 U/L (38-126); Anion Gap 9 mmol/L; Blood Urea Nitrogen 23 mg/dL (9-20); Calcium 9.4 mg/dL (8.4-10.2); Carbon Dioxide 22 mmol/L (22-30); Chloride 109 mmol/L (98-107); Creatine Kinase 114 U/L (55-170); Glucose 95 mg/dL (74-99); Non-African American GFR(CKD) >90 (>60 ml/min/1.73 sqM); Potassium 5.2 mmol/L (3.5-5.1); Salicylate <1.0 mg/dL; Sodium 140 mmol/L (137-145); Total Bilirubin 0.6 mg/dL (0.2-1.3); Total Protein 6.7 g/dL (6.3-8.2)
--- NOTE | 2019-09-21 03:48 | XR ---
EXAMINATION TYPE: XR chest 2V DATE OF EXAM: 09/21/2019 COMPARISON: 06/21/2019 HISTORY: Short of breath TECHNIQUE: FINDINGS: Heart and mediastinum are normal. Lungs are clear of infiltrate. There is mild pulmonary hy perinflation. There are no hilar masses. Bony thorax is intact. IMPRESSION: There is probably some COPD. No acute lung disease. No change.
[2019-09-21 03:54] LABS: Creatine Kinase MB 5.2 ng/mL (0.0-2.4); Troponin I <0.012 ng/mL (0.000-0.034)
[2019-09-21 04:04] LABS: Basophils % (A) 0 %; Eosinophils # (A) 0.2 k/uL (0-0.7); Eosinophils % (A) 2 %; HCT 46.4 % (39.0-53.0); HGB 14.1 gm/dL (13.0-17.5); Hypochromasia Slight; Lymphocytes # (A) 1.4 k/uL (1.0-4.8); Lymphocytes % (A) 16 %; MCH 28.7 pg (25.0-35.0); MCHC 30.5 g/dL (31.0-37.0); Monocytes # (A) 0.4 k/uL (0-1.0); Monocytes % (A) 5 %; Neutrophils # (A) 6.3 k/uL (1.3-7.7); Neutrophils % (A) 74 %; Platelet Count 309 k/uL (150-450); RBC 4.93 m/uL (4.30-5.90); RDW 14.8 % (11.5-15.5); WBC 8.5 k/uL (3.8-10.6)
[2019-09-21] MEDS ORDERED: IBUPROFEN 800 MG TAB PO STA ×2 (04:29→09:57)
[2019-09-21] MEDS ORDERED: ACETAMINOPHEN TAB 325 MG TAB PO PRN (18:30)
[2019-09-21] MEDS ORDERED: MAG HYDROX/AL HYDROX/SIMETH 30 ML CUP PO PRN (18:30)
[2019-09-21] MEDS ORDERED: MAGNESIUM HYDROXIDE 2,400 MG/10 ML CUP PO PRN (18:30)
[2019-09-21] MEDS: APIXABAN 5 MG TAB PO SCH (20:48)
[2019-09-21] MEDS: MONTELUKAST 10 MG TAB PO SCH (20:48)
[2019-09-21] MEDS: predniSONE 10 MG TAB PO SCH (20:49)
[2019-09-21] MEDS: LATANOPROST 0.005% OPHTH DROPS 2.5 ML BTL BOTH EYES SCH (20:49)
[2019-09-21] MEDS: carBAMazepine 200 MG TAB PO SCH (20:49)
[2019-09-21] MEDS: tiZANidine 4 MG TAB PO SCH (20:50)
[2019-09-21] MEDS: GABAPENTIN 300 MG CAP PO SCH (20:51)
[2019-09-22] MEDS: PANTOPRAZOLE 40 MG TABLET PO SCH (10:49)
[2019-09-22] MEDS: APIXABAN 5 MG TAB PO SCH ×2 (10:49→21:44)
[2019-09-22] MEDS: carBAMazepine 200 MG TAB PO SCH ×2 (10:49→21:44)
[2019-09-22] MEDS: DULoxetine HCL 60 MG CAPSULE.DR PO SCH (10:50)
[2019-09-22] MEDS: CLOPIDOGREL 75 MG TAB PO SCH (10:50)
[2019-09-22] MEDS: NICOTINE 14MG/24HR PATCH TRANSDERM SCH (10:50)
[2019-09-22] MEDS: GABAPENTIN 300 MG CAP PO SCH ×3 (10:50→22:30)
[2019-09-22] MEDS: TOPIRAMATE 25 MG TAB PO SCH (10:51)
[2019-09-22] MEDS: tiZANidine 4 MG TAB PO SCH ×3 (10:51→22:30)
[2019-09-22] MEDS: ZIPRASIDONE 20 MG VIAL IM PRN ×2 (12:06→12:29)
[2019-09-22 12:34] LABS: Carbamazepine (Tegretol) 3.3 ug/mL
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
[2019-09-22 19:21] LABS: Hemoglobin A1C 6.3 % (4.0-6.0)
[2019-09-22] MEDS: LATANOPROST 0.005% OPHTH DROPS 2.5 ML BTL BOTH EYES SCH (21:44)
[2019-09-22] MEDS: predniSONE 10 MG TAB PO SCH (21:44)
[2019-09-22] MEDS: MONTELUKAST 10 MG TAB PO SCH (21:44)
[2019-09-22] MEDS: ARIPiprazole 2 MG TAB PO SCH (21:44)
[2019-09-23] MEDS: HYDROcodone/APAP 5-325MG 1 EACH TAB PO PRN ×2 (03:06→10:14)
[2019-09-23] MEDS: CLOPIDOGREL 75 MG TAB PO SCH (10:10)
[2019-09-23] MEDS: APIXABAN 5 MG TAB PO SCH ×2 (10:10→22:02)
[2019-09-23] MEDS: carBAMazepine 200 MG TAB PO SCH ×2 (10:10→22:03)
[2019-09-23] MEDS: PANTOPRAZOLE 40 MG TABLET PO SCH (10:10)
[2019-09-23] MEDS: ARIPiprazole 2 MG TAB PO SCH (10:10)
[2019-09-23] MEDS: DULoxetine HCL 60 MG CAPSULE.DR PO SCH (10:11)
[2019-09-23] MEDS: NICOTINE 14MG/24HR PATCH TRANSDERM SCH (10:11)
[2019-09-23] MEDS: TOPIRAMATE 25 MG TAB PO SCH (10:11)
[2019-09-23] MEDS: GABAPENTIN 300 MG CAP PO SCH ×3 (10:11→22:05)
[2019-09-23] MEDS: tiZANidine 4 MG TAB PO SCH ×3 (10:11→22:14)
[2019-09-23] MEDS ORDERED: TETRAHYDROZOLINE 0.05% OPHTH DROPS 15 ML BTL BOTH EYES PRN (10:26)
[2019-09-23] MEDS ORDERED: LORazepam 1 MG TAB PO PRN (12:18)
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
[2019-09-23] MEDS: ZIPRASIDONE 20 MG VIAL IM PRN (12:30)
[2019-09-23] MEDS: LATANOPROST 0.005% OPHTH DROPS 2.5 ML BTL BOTH EYES SCH (22:03)
[2019-09-23] MEDS: predniSONE 10 MG TAB PO SCH (22:04)
[2019-09-23] MEDS: MONTELUKAST 10 MG TAB PO SCH (22:04)
[2019-09-24] MEDS: NICOTINE 14MG/24HR PATCH TRANSDERM SCH (08:02)
[2019-09-24] MEDS: GABAPENTIN 300 MG CAP PO SCH ×4 (08:03→21:33)
[2019-09-24] MEDS: DULoxetine HCL 60 MG CAPSULE.DR PO SCH (08:03)
[2019-09-24] MEDS: CLOPIDOGREL 75 MG TAB PO SCH (08:03)
[2019-09-24] MEDS: carBAMazepine 200 MG TAB PO SCH ×2 (08:03→20:44)
[2019-09-24] MEDS: ARIPiprazole 2 MG TAB PO SCH (08:03)
[2019-09-24] MEDS: APIXABAN 5 MG TAB PO SCH ×2 (08:03→20:44)
[2019-09-24] MEDS: PANTOPRAZOLE 40 MG TABLET PO SCH (08:03)
[2019-09-24] MEDS: TOPIRAMATE 25 MG TAB PO SCH (08:04)
[2019-09-24] MEDS: tiZANidine 4 MG TAB PO SCH ×4 (08:04→21:34)
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
[2019-09-24] MEDS: LATANOPROST 0.005% OPHTH DROPS 2.5 ML BTL BOTH EYES SCH (20:44)
[2019-09-24] MEDS: MONTELUKAST 10 MG TAB PO SCH (20:46)
[2019-09-24] MEDS: BACITRACIN 500 UNIT/GM OINT 28.4 GM TUBE TOPICAL SCH (20:47)
[2019-09-24] MEDS ORDERED: ZIPRASIDONE 20 MG VIAL IM ONE (20:58)
[2019-09-24] MEDS: ZIPRASIDONE 20 MG VIAL IM PRN (21:00)
[2019-09-24] MEDS: predniSONE 10 MG TAB PO SCH (21:30)
[2019-09-25] MEDS: HYDROcodone/APAP 5-325MG 1 EACH TAB PO PRN ×3 (04:15→22:04)
[2019-09-25] MEDS: PANTOPRAZOLE 40 MG TABLET PO SCH (08:24)
[2019-09-25] MEDS: ARIPiprazole 2 MG TAB PO SCH (08:24)
[2019-09-25] MEDS: BACITRACIN 500 UNIT/GM OINT 28.4 GM TUBE TOPICAL SCH ×2 (08:24→21:09)
[2019-09-25] MEDS: APIXABAN 5 MG TAB PO SCH ×2 (08:24→21:09)
[2019-09-25] MEDS: carBAMazepine 200 MG TAB PO SCH ×2 (08:24→21:06)
[2019-09-25] MEDS: CLOPIDOGREL 75 MG TAB PO SCH (08:25)
[2019-09-25] MEDS: GABAPENTIN 300 MG CAP PO SCH ×3 (08:25→22:04)
[2019-09-25] MEDS: NICOTINE 14MG/24HR PATCH TRANSDERM SCH (08:25)
[2019-09-25] MEDS: DULoxetine HCL 60 MG CAPSULE.DR PO SCH (08:25)
[2019-09-25] MEDS: TOPIRAMATE 25 MG TAB PO SCH (08:25)
[2019-09-25] MEDS: tiZANidine 4 MG TAB PO SCH ×3 (08:25→21:06)
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
[2019-09-25] MEDS: MONTELUKAST 10 MG TAB PO SCH (21:05)
[2019-09-25] MEDS: predniSONE 10 MG TAB PO SCH (21:06)
[2019-09-25] MEDS: LATANOPROST 0.005% OPHTH DROPS 2.5 ML BTL BOTH EYES SCH (21:07)
[2019-09-26 07:08] VITALS: RESP 18; TEMP 98.4
[2019-09-26 08:03] VITALS: BP 115/68; PULSE 111
[2019-09-26] MEDS: tiZANidine 4 MG TAB PO SCH ×3 (08:03→22:52)
[2019-09-26] MEDS: ARIPiprazole 2 MG TAB PO SCH (08:03)
[2019-09-26] MEDS: DULoxetine HCL 60 MG CAPSULE.DR PO SCH (08:03)
[2019-09-26] MEDS: APIXABAN 5 MG TAB PO SCH ×3 (08:03→22:50)
[2019-09-26] MEDS: carBAMazepine 200 MG TAB PO SCH ×4 (08:03→22:56)
[2019-09-26] MEDS: NICOTINE 14MG/24HR PATCH TRANSDERM SCH (08:03)
[2019-09-26] MEDS: BACITRACIN 500 UNIT/GM OINT 28.4 GM TUBE TOPICAL SCH ×2 (08:03→21:27)
[2019-09-26] MEDS: CLOPIDOGREL 75 MG TAB PO SCH (08:03)
[2019-09-26] MEDS: PANTOPRAZOLE 40 MG TABLET PO SCH (08:03)
[2019-09-26] MEDS: TOPIRAMATE 25 MG TAB PO SCH (08:04)
[2019-09-26] MEDS: HYDROcodone/APAP 5-325MG 1 EACH TAB PO PRN ×2 (08:05→17:14)
[2019-09-26] MEDS: GABAPENTIN 300 MG CAP PO SCH ×3 (08:05→22:51)
[2019-09-26] MEDS: ARIPiprazole 5 MG TAB PO SCH (10:08)
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
[2019-09-26] MEDS: LATANOPROST 0.005% OPHTH DROPS 2.5 ML BTL BOTH EYES SCH (21:27)
[2019-09-26] MEDS: MONTELUKAST 10 MG TAB PO SCH ×2 (21:27→22:50)
[2019-09-26] MEDS: predniSONE 10 MG TAB PO SCH ×2 (21:28→22:53)
[2019-09-27] MEDS: BACITRACIN 500 UNIT/GM OINT 28.4 GM TUBE TOPICAL SCH (08:02)
[2019-09-27] MEDS: ARIPiprazole 5 MG TAB PO SCH (08:02)
[2019-09-27] MEDS: PANTOPRAZOLE 40 MG TABLET PO SCH (08:02)
[2019-09-27] MEDS: CLOPIDOGREL 75 MG TAB PO SCH (08:03)
[2019-09-27] MEDS: DULoxetine HCL 60 MG CAPSULE.DR PO SCH (08:03)
[2019-09-27] MEDS: APIXABAN 5 MG TAB PO SCH (08:06)
[2019-09-27] MEDS: carBAMazepine 200 MG TAB PO SCH (08:07)
[2019-09-27] MEDS: tiZANidine 4 MG TAB PO SCH (08:08)
[2019-09-27] MEDS: NICOTINE 14MG/24HR PATCH TRANSDERM SCH (08:08)
[2019-09-27] MEDS: GABAPENTIN 300 MG CAP PO SCH (08:08)
[2019-09-27] MEDS: TOPIRAMATE 25 MG TAB PO SCH (08:09)
[2019-09-27] MEDS: HYDROcodone/APAP 5-325MG 1 EACH TAB PO PRN (08:10)
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
== END 2019-09-27 13:15 | disposition home or self-care (01) | DRG 884 ==
LOC: EC 23:02 → 3MHU 09-21 17:31
PROVIDERS: ADMIT Psychiatry & Neurology Psychiatry; ATTEND Psychiatry & Neurology Psychiatry
DX: F01.51 Vascular dementia, unspecified severity, with behavioral disturbance (principal); I69.354 Hemiplegia and hemiparesis following cerebral infarction affecting left non-dominant side; R45.850 Homicidal ideations; K70.10 Alcoholic hepatitis without ascites; I48.91 Unspecified atrial fibrillation; F10.20 Alcohol dependence, uncomplicated; G40.909 Epilepsy, unspecified, not intractable, without status epilepticus; J44.9 Chronic obstructive pulmonary disease, unspecified; G43.909 Migraine, unspecified, not intractable, without status migrainosus; M19.90 Unspecified osteoarthritis, unspecified site; G89.29 Other chronic pain; H40.9 Unspecified glaucoma; M51.36 Other intervertebral disc degeneration, lumbar region; F32.9 Major depressive disorder, single episode, unspecified; F17.210 Nicotine dependence, cigarettes, uncomplicated; Z80.8 Family history of malignant neoplasm of other organs or systems; I10 Essential (primary) hypertension; Z81.1 Family history of alcohol abuse and dependence; G62.9 Polyneuropathy, unspecified; K21.9 Gastro-esophageal reflux disease without esophagitis; R45.87 Impulsiveness; R45.86 Emotional lability; Z79.899 Other long term (current) drug therapy; Z79.02 Long term (current) use of antithrombotics/antiplatelets; Z79.01 Long term (current) use of anticoagulants; Z79.52 Long term (current) use of systemic steroids; Z86.711 Personal history of pulmonary embolism; Z87.19 Personal history of other diseases of the digestive system; Z86.718 Personal history of other venous thrombosis and embolism; Z87.11 Personal history of peptic ulcer disease; Z87.01 Personal history of pneumonia (recurrent); Z98.890 Other specified postprocedural states; Z88.0 Allergy status to penicillin; Z88.8 Allergy status to other drugs, medicaments and biological substances; Z82.5 Family history of asthma and other chronic lower respiratory diseases; Z80.3 Family history of malignant neoplasm of breast
CPT/HCPCS: 36415; 71046; 80053; 80061; 80156; 80201; 80306; 80320; 80329; 82075; 82550; 82553; 83036; 83520; 83690; 84443; 84484; 85025; 93005; 96360; 96361; 99285